=== PATIENT | male | born 1945 | race Caucasian/White ===

== ENCOUNTER 2023-03-24 06:31 | Outpatient (OUT) | payer MEDICARE, SELFPAY ==
--- NOTE | 2023-03-24 | NM_ITS ---
The [place] [id number] Patient Name: MORENA HICKMAN MRN: [id number] date: 1945 Sex: M Assigned Patient Location: LAB Current Patient Location: LAB Accession/Order Number: [id number] Exam Date: 03/24/2023 07:00 Report Date: 03/24/2023 16:38 At the request of: GERMAN WESTFALL Procedure: NM bone scan whole body EXAMINATION: NM bone scan whole body HISTORY: PROSTATE CANCER COMPARISON: No relevant comparison available. TECHNIQUE: After obtaining the patient's consent, 25.6 mCi Technetium 99m MDP was injected intravenously. Images were obtained approximately two hours later. FINDINGS: ABNORMALITIES: Increased activity identified in the left sternoclavicular joint, left C3 and right T8 facet joints, degenerative changes favored. Decreased activity in the left hip consistent with arthroplasty. OTHER: Negative. IMPRESSION: No definite evidence of metastatic disease to the bones Electronically authenticated by: JAIMEE LOVE Date: 03/24/2023 16:38
--- NOTE | 2023-03-24 06:54 | CT_ITS ---
The [address] [address] Patient Name: MORENA HICKMAN MRN: [id number] date: 1945 Sex: M Assigned Patient Location: LAB Current Patient Location: LAB Accession/Order Number: [id number] Exam Date: 03/24/2023 08:42 Report Date: 03/24/2023 09:44 At the request of: GERMAN WESTFALL Procedure: CT abdomen pelvis wo/w con EXAM: CT scan of the abdomen and pelvis without and with IV contrast using 99 mL of IV iodinated contrast. Oral contrast. Dose reduction technique used: Automated exposure control and/or adjustment of the mA and/or kV according to patient size and/or use of iterative reconstruction technique. REASON FOR EXAM: Prostate Cancer C61 COMPARISON: None FINDINGS: No solid organ metastases. No lymphadenopathy in the abdomen or pelvis. Enlarged prostate. Small bilateral renal cysts. Colonic diverticulosis. Left total hip arthroplasty. L1-L4 posterior maame and pedicle screw fusion, hardware is intact. Negative appendix. No free intraperitoneal air. No free fluid in the abdomen or pelvis. No dilated or thickened loops of small bowel or colon. No renal, ureteral or bladder calculi. No hydronephrosis. Liver, pancreas, spleen, bilateral kidneys, and bilateral adrenal glands are otherwise unremarkable. Remainder unremarkable. IMPRESSION: No evidence of metastatic disease in the abdomen or pelvis. Electronically authenticated by: PATRICIA CAMPBELL Date: 03/24/2023 09:44
[2023-03-24 06:59] LABS: Estimated GFR (African America >60 (>=60); Estimated GFR (Non-African Ame >60 (>=60)
== END 2023-03-24 06:32 | disposition home or self-care (01) ==
LOC: LAB 06:36
PROVIDERS: PCP Family Medicine; Visit Provider Urology
DX: C61 Malignant neoplasm of prostate (principal); Z80.42 Family history of malignant neoplasm of prostate
CPT/HCPCS: 36415; 74178; 78306; 82565; 84520; A9503; Q9967

== ENCOUNTER 2023-04-11 08:02 | Outpatient (OUT) | payer MEDICARE, SELFPAY ==
[2023-04-11 08:56] LABS: Erythrocyte Sedimentation Rate 16 mm/hr (<=20)
[2023-04-11 09:56] LABS: C Reactive Protein <0.2 mg/dL (<=1.0)
== END 2023-04-11 08:03 | disposition home or self-care (01) ==
PROVIDERS: PCP Family Medicine
DX: M86.652 Other chronic osteomyelitis, left thigh (principal)
CPT/HCPCS: 36415; 85652; 86140

== ENCOUNTER 2023-07-13 07:52 | Outpatient (OUT) | payer MEDICARE, SELFPAY ==
--- NOTE | 2023-07-13 07:58 | ECG_ITS ---
The 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
--- NOTE | 2023-07-13 07:58 | XR_ITS ---
The [address] [address] Patient Name: MORENA HICKMAN MRN: [id number] date: 1945 Sex: M Assigned Patient Location: [facility] Current Patient Location: [facility] Accession/Order Number: [id number] Exam Date: 07/13/2023 08:50 Report Date: 07/13/2023 09:13 At the request of: GERMAN WESTFALL Procedure: XR chest 2V EXAM: XR chest 2V HISTORY: Preop exam COMPARISON: None. TECHNIQUE: PA and lateral views of the chest. FINDINGS: The cardiomediastinal silhouette is normal. No focal consolidation is identified. There is no pneumothorax. No pleural effusion is noted. The osseous structures are intact. XR/XR chest 2V IMPRESSION: No acute cardiopulmonary process. Electronically authenticated by: ARNALDO KUMAR Date: 07/13/2023 09:13
[2023-07-13 08:53] LABS: Basophils Percent Auto 0.6 % (0.2-2.0); Eosinophils Absolute Auto 0.2 10^3/uL (0.0-0.7); Eosinophils Percent Auto 4.2 % (0.9-7.0); Hematocrit 37.7 % (42.0-54.0); Immature Granulocytes Abs Auto 0.01 10^3/uL (0.00-0.03); Immature Granulocytes Pct Auto 0.3 % (0.0-0.5); Lymphocytes Absolute Auto 0.9 10^3/uL (1.2-3.8); Lymphocytes Percent Auto 25.8 % (20.5-60.0); Mean Corpuscular HGB Conc 34.5 g/dL (29.9-35.2); Mean Corpuscular Hemoglobin 32.7 pg (25.9-34.0); Mean Corpuscular Volume 94.7 fL (80.0-94.0); Mean Platelet Volume 8.9 fL (9.5-13.5); Monocytes Absolute Auto 0.4 10^3/uL (0.3-0.8); Monocytes Percent Auto 11.1 % (1.7-12.0); Neutrophils Absolute Auto 2.1 10^3/uL (1.4-6.5); Platelet Count 172 10^3/uL (150-450); Red Blood Count 3.98 10^6/uL (4.70-6.10); Red Cell Distribution Width 12.7 % (11.0-15.0); White Blood Count 3.6 10^3/uL (4.0-11.0)
--- NOTE | 2023-07-13 08:53 | PM.PRESUREVA ---
History of Present Illness History of Present Illness Chief complaint: prostate cancer Narrative: Patient presents for preadmission testing. Patient states he has prostate cancer. He complains of frequency with urination and nocturia. He denies hematuria, dysuria, fever, abdominal pain, or any other complaints. Review of Systems ROS Narrative REVIEW OF SYSTEMS: Negative except as stated in HPI, ten or more systems reviewed. Constitutional: No fever , chills, weakness ENT: No sore throat or epistaxis Cardiovascular: No edema, chest pain, palpitations, or activity intolerance Respiratory: No shortness of breath, cough, or wheezing Musculoskeletal: No joint pain or swelling Gastrointestinal: No abdominal pain, constipation, diarrhea, or vomiting Genitourinary: No dysuria or hematuria Neurological: No numbness, tingling, weakness, or headache Psychiatric: No mood changes PFSH PFSH Medical History (Updated 07/13/23 @ 08:31 by Rosa Condon NP) Arthritis ?M19.90 - Unspecified osteoarthritis, unspecified site (ICD-10) Frequency of urination ?R35.0 - Frequency of micturition (ICD-10) Heartburn ?R12 - Heartburn (ICD-10) IBS (irritable bowel syndrome) ?K58.9 - Irritable bowel syndrome without diarrhea (ICD-10) Infected prosthesis of left hip ?T84.52XA - Infection and inflammatory reaction due to internal left hip prosthesis, initial encounter (ICD-10) Nocturia ?R35.1 - Nocturia (ICD-10) Prostate cancer ?C61 - Malignant neoplasm of prostate (ICD-10) Surgical History (Updated 07/13/23 @ 08:31 by Rosa Condon NP) History of carpal tunnel release ?Z98.890 - Other specified postprocedural states (ICD-10) History of cataract extraction ?Z98.49 - Cataract extraction status, unspecified eye (ICD-10) History of hip surgery ?Z98.890 - Other specified postprocedural states (ICD-10) History of spinal surgery ?Z98.890 - Other specified postprocedural states (ICD-10) History of spinal surgery ?Z98.890 - Other specified postprocedural states (ICD-10) History of total hip arthroplasty ?Z96.649 - Presence of unspecified artificial hip joint (ICD-10) Hx of prostate biopsy ?Z98.890 - Other specified postprocedural states (ICD-10) Family History (Updated 07/13/23 @ 08:31 by Rosa Condon NP) Other Family history of breast cancer Family history of colon cancer Family history of coronary artery disease Family history of heart disease Family history of hypertension Family history of prostate cancer Social History (Updated 07/13/23 @ 08:22 by Rosa Condon NP) Within the past year, how often did you have a drink containing alcohol: monthly or less Smoking status: Never smoker Highest level of school completed/degree received: high school graduate Meds Home Medications and Allergies Home Medications Medication Instructions Recorded Confirmed Type Lactobacillus rhamnosus GG 10 1 cap PO DAILY 07/13/23 07/13/23 History billion cell capsule (Culturelle) acetaminophen 325 mg capsule 650 mg PO Q6H PRN pain 07/13/23 07/13/23 History (Tylenol) amoxicillin 500 mg-potassium 1 tab PO BID 07/13/23 07/13/23 History clavulanate 125 mg tablet (Augmentin) bicalutamide 50 mg tablet 50 mg PO DAILY 07/13/23 07/13/23 History calcium carb-vit D3-minerals 600 1 tab PO DAILY 07/13/23 07/13/23 History mg calcium-400 unit tablet dicyclomine 20 mg tablet 20 mg PO BID 07/13/23 07/13/23 History meloxicam 7.5 mg tablet 7.5 mg PO BID 07/13/23 07/13/23 History Allergies Allergy/AdvReac Type Severity Reaction Status Date / Time celecoxib [From Celebrex] Allergy renal Verified 07/13/23 08:18 insufficiency codeine Allergy Hallucinati Verified 07/13/23 08:18 ng ketoprofen [From Orudis] Allergy Verified 07/13/23 08:18 oxycodone Allergy syncope Verified 07/13/23 08:18 Exam Narrative Exam Narrative: Constitutional: Awake, alert, comfortable, well-appearing, nontoxic, interactive, vital signs as charted Head: Normocephalic, atraumatic Neck: Supple, normal appearance, normal range of motion, no meningeal signs, no lymphadenopathy Respiratory: No respiratory distress, breath sounds clear Cardiovascular: Regular rate and rhythm, strong and regular heart tones Abdomen: Nontender, normal bowel sounds, soft, no CVA tenderness Musculoskeletal: Normal gait, no swelling or edema Skin: No rashes or induration, no lesions, only visible skin inspected Neuro: No neurological deficits, normal sensation Psychiatric: Oriented ?3, normal affect Assessment and Plan Assessment and Plan (1) Prostate cancer: Plan [place] seed implant scheduled with Dr. Graham 07/27/2023.
[2023-07-13 09:07] LABS: Anion Gap 9.5; Calcium 8.9 mg/dL (8.5-10.1); Carbon Dioxide 30.7 mmol/L (21.0-32.0); Chloride 105 mmol/L (98-107); Estimated GFR (African America >60 (>=60); Estimated GFR (Non-African Ame >60 (>=60); Glucose 86 mg/dL (74-106); Potassium 4.2 mmol/L (3.5-5.1); Sodium 141 mmol/L (136-145)
[2023-07-13 09:15] LABS: INR 0.95; Partial Thromboplastin Time 26.2 sec (22.3-36.2); Prothrombin Time 10.1 sec (9.0-11.6)
== END 2023-07-13 07:53 | disposition home or self-care (01) ==
LOC: PST 07:52
PROVIDERS: PCP Family Medicine; Visit Provider Urology
DX: Z01.812 Encounter for preprocedural laboratory examination (principal); Z01.810 Encounter for preprocedural cardiovascular examination; C61 Malignant neoplasm of prostate; M19.90 Unspecified osteoarthritis, unspecified site; K21.9 Gastro-esophageal reflux disease without esophagitis; K58.9 Irritable bowel syndrome, unspecified; R97.20 Elevated prostate specific antigen [PSA]; Z80.42 Family history of malignant neoplasm of prostate
CPT/HCPCS: 71046; 80048; 85025; 85610; 85730; 93005; G0463

== ENCOUNTER 2023-07-27 06:51 | Day surgery (SDC) | payer MEDICARE, SELFPAY ==
[2023-07-13 08:47] VITALS: BP 136/67; PULSE 70; RESP 18; TEMP 36.3; O2SAT 96; BMI 29.9
[2023-07-27] VITALS (17 sets, daily range): BP systolic 130–163; BP diastolic 65–87; PULSE 66–97; RESP 13–24; TEMP 36.3; O2SAT 95–98
--- NOTE | 2023-07-27 | XR_ITS ---
The [address] [address] Patient Name: MORENA HICKMAN MRN: [id number] date: 1945 Sex: M Assigned Patient Location: [facility] Current Patient Location: Accession/Order Number: [id number] Exam Date: 07/27/2023 09:00 Report Date: 07/28/2023 06:51 At the request of: GERMAN WESTFALL Procedure: XR pelvis 1-2V PROCEDURE: XR pelvis 1-2V HISTORY: PROSTATE SEED IMPLANT COMPARISON: None. FINDINGS: Single intraoperative spot fluoroscopic image of the pelvis shows numerous radioactive seeds confined to the region of the prostate. Bladder is filled with contrast without appreciable extravasation. Prior left hip replacements and mechanical fusion of the visible lumbar spine. XR/XR pelvis 1-2V IMPRESSION: 1. Radioactive prostate seeding without appreciable bladder involvement. Electronically authenticated by: DONITA DAVENPORT Date: 07/28/2023 06:51
[2023-07-27] MEDS: LACTATED RINGER'S SOLUTION 1,000 ML 50 ML IV (07:26)
[2023-07-27] MEDS: CEFAZOLIN SODIUM/DEXTROSE,ISO 1 GM/50 ML IV.SOLN IV (07:59)
[2023-07-27] MEDS: IOHEXOL 300 MG/ML - 50 ML BTL INJ (08:17)
--- NOTE | 2023-07-27 09:19 | PM.URSON ---
Urology Surgery Operative Note Operative Note Procedure Date: 07/27/23 Time Out Performed: yes Pre-op Diagnosis: prostate cancer organ confined Post-op Diagnosis: same as pre-op Procedures performed: #1 palladium 103 prostate seed implantation. #2. Cystoscopy. Anesthesia: General-LMA Primary Surgeon: Galo Graham Complications: none Estimated blood loss (mL): 5 Findings: no evidence of seeds or spacers protruding from the prostate or within the bladder Specimens: none Drains: 18 Bulgarian Bunch catheter in the bladder. Indications for Procedures: this gentleman has a PSA of 26 and had an her [place] of the prostate with K[place] score of 8 in 4 corners and 7 in 5 cores. He was started on hormmonal and the and treatment planning with Dr. Villa. He had 45 lsasiter of external beam given prior to his seed implantation. He now presents for palladium 103 prostate seed implantation to confer 100 metzger along with a cystoscopy. He has signed an informed consent for these procedures after all risks were explained. Detailed description of Procedure: The patient was brought to the operating room and placed on the operating room table in the supine position. SCDs were placed on the lower extremities and turned on and functioning during the entire case. Timeout was done by all parties in the room. We all agreed upon the patient's identification and the planned procedures for this patient. Genn. anesthesia was then administered. The patient was then repositioned into the modified dorsal lithotomy position. All pressure points were satisfactorily padded. Genitalia were sterilely prepped and draped in usual fashion.we started by assuring that his positioning matched the preoperative simulation. We then brought the implant bracket to the foot of the table. The ultrasound probe was passed per rectum. The bracket was placed over the perineum. We used fluoroscopic and ultrasonic assistance to facilitate the procedure. Dilute contrast and saline were placed in the bladder to have a distended. The catheter was removed. We then started passing needles trans-perineally to the prostate. We passed a 14 needles and placed 43 sourrces of palladium 103 into predetermined locations according to the treatment plan. With the fluoroscopic and ultrasonic assistance we had excellent placement. Upon completion, live dosimetry revealed excellent coverage of the entire prostate. The ultrasound probe grid and implant bracket were then removed from the foot of the table. I then passed a 22 Bulgarian Olympus cystoscope per urethra and into the bladder. There was no evidence of any seeds or spacers protruding from the prostate or sitting within the bladder. There was high-grade trabeculation within the bladder. The scope was then removed. I then placed an 18 Bulgarian Bunch catheter in the bladder and 10 mL of fluid was placed in the balloon. It drained clear. The patient was then transferred to a raberdeen bed and wheeled to PACU in stable condition. He'll be discharged to home later today with a prescription for Vesicare 10 mg daily #7. He is already on Augmentin 500 mg twice a day and he will continue this. Follow-up will be in one week.
[2023-07-27] MEDS: SOLIFENACIN SUCCINATE 10 MG TABLET PO (09:32)
--- NOTE | 2023-07-27 10:12 | PC.NURSE ---
Bunch patent and draining clear yellow urine without difficulty.
--- NOTE | 2023-07-27 10:44 | PC.NURSE ---
Bunch emptied of clear yellow urine
== END 2023-07-27 10:35 | disposition home or self-care (01) ==
PROVIDERS: PCP Family Medicine; Visit Provider Urology
PROC: (CPT 55875; principal; 2023-07-27 08:00)
DX: C61 Malignant neoplasm of prostate (principal); N32.89 Other specified disorders of bladder; M19.90 Unspecified osteoarthritis, unspecified site; K21.9 Gastro-esophageal reflux disease without esophagitis; R97.20 Elevated prostate specific antigen [PSA]; Z80.42 Family history of malignant neoplasm of prostate; K58.9 Irritable bowel syndrome, unspecified; J30.2 Other seasonal allergic rhinitis; Z87.891 Personal history of nicotine dependence; M06.4 Inflammatory polyarthropathy; E66.3 Overweight; Z68.28 Body mass index [BMI] 28.0-28.9, adult; R35.1 Nocturia; Z96.642 Presence of left artificial hip joint
CPT/HCPCS: 55875; 36415; 72170; 76965; 77290; 77332; 77778; C1715; C2635; C2640; J2704; Q9967

== ENCOUNTER 2023-11-06 08:18 | Outpatient (OUT) | payer MEDICARE, SELFPAY ==
--- OUTSIDE RECORDS SUMMARY | 2023-11-06 08:23 | XMS_ITS | CCD ---
Author Name Unknown Address [address] [place] [address] Organization [facility] Care Team Providers Care Occupational Therapy Supervisor Name Role Phone Kilo Harkins Unavailable MD Uday Wilson Primary Care Provider MD Kilo Harkins Attending Provider Kilo Harkins Attending Unavailable Kilo Harkins Admitting Unavailable Wilson, Uday Stoll Primary Care Unavailable WILSON ., DR UDAY Stoll Consulting Unavailable WILSON ., DR UDAY Stoll Attending Unavailable WILSON ., DR UDAY Stoll Admitting Unavailable WILSON ., DR UDAY Stoll Primary Care Unavailable WILSON ., DR UDAY Stoll Consulting Unavailable MISC, DR SHUKLA Attending Unavailable MISC, DR SHUKLA Admitting Unavailable WILSON ., DR UDAY Stoll Primary Care Unavailable MISC, DR SHUKLA Consulting Unavailable MISC, DR SHUKLA Attending Unavailable WILSON ., DR UDAY Stoll Primary Care Unavailable MISC, DR SHUKLA Admitting Unavailable MISC, DR SHUKLA Consulting Unavailable WILSON ., DR UDAY Stoll Primary Care Unavailable MISC, DR SHUKLA Admitting Unavailable MISC, DR SHUKLA Attending Unavailable WILSON ., DR UDAY Stoll Primary Care Unavailable REQUEST, DR ARAYA LISTED Attending Unavaila ble REQUEST, DR ARAYA LISTED Admitting Unavaila ble REQUEST, DR ARAYA LISTED Consulting Unavaila ble MISC, DR SHUKLA Attending Unavailable WILSON ., DR UDAY Stoll Primary Care Unavailable MISC, DR SHUKLA Admitting Unavailable MISC, DR SHUKLA Consulting Unavailable WILSON, UDAY Stoll Primary Care Physician [phone] Marla Whitfield Primary Care Physician Unavailable Primary Care Provider Unavailabl e ENGELER, G KANU Attending Unavailable ENGELER, G KANU Referring Unavailable ENGELER, G KANU Referring Unavailable ENGELER, G KANU Attending Unavailable ENGELER, G KANU Referring Unavailable ENGELER, G KANU Attending Unavailable ENGELER, G KANU Referring Unavailable ENGELER, G KANU Referring Unavailable ENGELER, G KANU Referring Unavailable WESTFALL, GERMAN Colmenares Referring Unavailable ENGELER, G KANU Attending Unavailable ENGELER, G KANU Attending Unavailable ENGELER, G KANU Attending Unavailable ENGELER, G KANU Referring Unavailable ENGELER, G KANU Referring Unavailable ENGELER, G KANU Attending Unavailable ENGELER, G KANU Referring Unavailable ENGELER, G KANU Attending Unavailable ENGELER, G KANU Attending Unavailable ENGELER, G KANU Referring Unavailable ENGELER, G KANU Referring Unavailable ENGELER, G AKNU Referring Unavailable ENGELER, G KANU Referring Unavailable ENGELER, G KANU Referring Unavailable ENGELER, G KANU Referring Unavailable ENGELER, G KANU Referring Unavailable ENGELER, G KANU Referring Unavailable ENGELER, G KANU Referring Unavailable ENGELER, G KANU Referring Unavailable ENGELER, G KANU Attending Unavailable ENGELER, G KANU Referring Unavailable ENGELER, G KANU Referring Unavailable ENGELER, G KANU Referring Unavailable ENGELER, G KANU Referring Unavailable ENGELER, G KANU Attending Unavailable ENGELER, G KANU Referring Unavailable ENGELER, G KANU Referring Unavailable ENGELER, G KANU Attending Unavailable ENGELER, G KANU Referring Unavailable ENGELER, G KANU Attending Unavailable ENGELER, G KANU Attending Unavailable ENGELER, G KANU Referring Unavailable Roseann, 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 DROPS 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 Marla L Attending Unavailable WESTFALL, German Colmenares Attending Unavailable WESTFALL, German Colmenares Attending Unavailable Roseann, 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 DROPS 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 Marla L Admitting Unavailable Roseann, 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 DROPS 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 Marla L Attending Unavailable WESTFALL, German Colmenares Attending Unavailable Miguelito Peres Attending Unavailable WILSONUDAY BROWNLEE Attending Unavailable Miguelito Peres Attending Unavailable WILSONUDAY BRWONLEE Referring Unavailable WESTFALL, German Colmenares Attending Unavailable WILSONUDAY BROWNLEE Attending Unavailable Miguelito Peres Attending Unavailable WESTFALL, German Colmenares Attending Unavailable WESTFALL, German R Attending Unavailable WESTFALL, German R Attending Unavailable WESTFALL, German R Attending Unavailable WESTFALL, German Colmenares Attending Unavailable WESTFALL, German R Attending Unavailable WESTFALL, German Colmenares Attending Unavailable WESTFALL, German Colmenares Attending Unavailable WESTFALL, German R Referring Unavailable WESTFALL, German Colmenares Admitting Unavailable WESTFALL, German R Attending Unavailable Roseann, 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 DROPS 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 Marla L Attending Unavailable Roseann, 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 DROPS 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 Marla L Admitting Unavailable UDAY WILSON Attending Unavailable CAIT CLAYTON Attending Unavailable LORAINEE, JUAN RAMON Attending Unavailable SELF, REFERRED Referring Unavailable SHENDGE, VITHAL Referring Unavailable SHENDGE, VITHAL Referring Unavailable SHENDGE, VITHAL Referring Unavailable SHENDGE, ANDREWHAL Attending Unavailable MELLY MATA Attending Unavailable Allergies Allergy Classification Reported Allergen(s) Allergy Type Date of Onset Reaction(s) Facility (12 sources) celecoxib; Translations: [celecoxib] Drug Allergy 08-26-20 Unknown (qualifier value) [facility] (1 source) Codeine Drug Allergy Unknown [facility] Other (20 sources) Codeine; Translations: [Codeine] Drug Allergy 08-26-20 Unknown (qualifier value), Mental Status Change [facility] (1 source) sodium pentathol Allergy to substance 08-26-20 Swelling of Lip/Tongue/Throat [facility] (11 sources) Ketoprofen; Translations: [ketoprofen] Drug Allergy 04-14-20 Unknown (qualifier value) [facility] (20 sources) oxyCODONE; Translations: [oxycodone] Drug Allergy 05-23-20 Lightheadedness (finding), Other: See Comments [facility] (1 source) celecoxib; Translations: [CeleBREX] Drug Allergy [facility]ository (1 source) Acetaminophen / oxyCODONE; Translations: [OXYCODONE-ACETA MINOPHEN] Drug Allergy 05-23-[address] [facility] Repository Medications Current Medications Medication Drug Class(es) Dates Sig (Normalized) Sig (Original) Tylenol (7 sources) Start: 03-01-2023 Tylenol Oral Start Date: 03/01/23 Status: Ordered amoxicillin 500 mg / clavulanate 125 mg oral tablet (20 sources) Penicillin-class Antibacterial Start: 08-28-2023 amoxicillin-clavu lanate 500 mg-125 mg Tab Refill(s) 0 Start Date: 08/28/23 Status: Ordered Start: 02-08-2023 take 1 tablet by peter th every twelve hours Augmentin 500 mg-125 mg Tab 500 mg, Oral, q12hr, Refill(s) 0 Start Date: 02/08/23 Status: Ordered Start: 01-17-2023 take 1 tablet by peter th once at bedtime amoxicillin-clavulanic acid (AUGMENTIN) 500-125 mg per tablet TAKE 1 TABLET (500 MG) BY MOUTH IN THE MORNING AND AT BEDTIME. 0 01/17/2023 Active Comment on above: TAKE 1 TABLET (500 M G) BY MOUTH IN THE MORNING AND AT BEDTIME. aspirin 325 mg oral tablet (1 source) Platelet Aggregation Inhibitor, Nonsteroidal Anti-inflammatory Drug Start: Aspirin (Reza Aspirin) 325 mg Tablet Active 325 MG PO As Directed August 20, 2020 12:00am bicalutamide 50 mg oral tablet (20 sources) Androgen Receptor Inhibitor Start: End: take 1 tablet by mouth every twenty-four hours bicalutamide 50 mg Tab 50 mg = 1 tab(s), Oral, q24hr, X 30 day(s), # 30 tab(s), Refills(s) 11, Pharmacy: [facility], 178, cm, 03/27/23 9:48:00 EDT, Height/Length Dosing, 100, kg, 03/27/23 9:48:00 EDT, Weight Dosing Start Date: 03/27/23 Stop Date: 03/21/24 Status: Ordered Comment on above: Take 50 mg by mouth. ciprofloxacin 500 mg oral tablet (2 sources) Quinolone Antimicrobial Start: End: Cipro 500 mg Tab 500 mg = 1 tab(s), Oral, q12hr, Start 3 days prior to procedure, X 7 day(s), # 14 tab(s), Refills(s) 0, Pharmacy: [facility], 178, cm, 03/01/23 9:33:00 EDT, Height/Length Dosing, 98, kg, 02/14/23 10:27:00 EDT, Weight Dosing Start Date: 03/01/23 Stop Date: 03/08/23 Status: Ordered cyclobenzaprine hydrochloride 10 mg oral tablet (1 source) Muscle Relaxant Start: take 10 mg by mouth three times daily Cyclobenzaprine Active 10 MG PO Three times daily 50 August 28, 2020 12:00am dicyclomine hydrochloride 20 mg oral tablet (20 sources) Anticholinergic Start: take 1 tablet by mouth four times daily as needed dicyclomine 20 mg Tab 20 mg = 1 tab(s), Oral, QID, PRN Other (see comment), for IBS, # 120 tab(s), Refills(s) 3, Pharmacy: [facility] [id number] Start Date: 01/17/23 Status: Ordered Comment on above: Take 20 mg by mouth. fluticasone propionate 0.05 mg/actuat metered dose nasal spray (20 sources) Corticosteroid Start: take 2 spray(s) nasal route once daily Flonase 0.05 mg/inh [place] 2 spray(s), Nasal, Daily, 16 gram, Refill(s) 0, each nostril, [place] [facility] [id number], 180.5, cm, 03/15/23 10:05:00 EDT, Height/Length Dosing, 96.5, kg, 03/15/23 10:05:00 EDT, Weight Dosing Start Date: 03/15/23 Status: Ordered Comment on above: Use in the nose. Handicap Placard (9 sources) Start: Handicap Placard Handicap Placard, See Instructions, 1 EA, 0, Expires in 5 years Start Date: 12/02/22 Status: Ordered meloxicam 7.5 mg oral tablet (20 sources) Nonsteroidal Anti-inflammatory Drug Start: End: take 15 mg by mouth once daily Meloxicam Discontinued 15 MG PO Daily August 20, 2020 12:00am August 28, 2020 7:45am Start: 05-26-2020 take 1 tablet by peter twice daily as needed for arthritis meloxicam 7.5 mg Tab 7.5 mg = 1 tab(s), Oral, BID, PRN Arthritis, take with food, # 60 tab(s), Refills(s) 11, Pharmacy: [place] [id number] Start Date: 01/17/23 Status: Ordered Comment on above: TAKE ONE TABLET BY OUT TWICE A DAY WITH FOOD NEEDED FOR ARTHRITIS PAIN 24 hr mirabegron 50 mg extended release oral tablet (1 source) beta3-Adrenergic Agonist Start: 3 take 1 tablet by mouth once daily Myrbetriq 50 mg oral tablet, extended release 50 mg = 1 tab(s), Oral, Daily, # 30 tab(s), Refills(s) 11, Pharmacy: [facility], 178, cm, 03/27/23 9:48:00 EDT, Height/Length Dosing, 100, kg, 03/27/23 9:48:00 EDT, Weight Dosing Start Date: 08/03/23 Status: Ordered oxyCODONE hydrochloride 5 mg oral capsule (1 source) Opioid Agonist Start: 0 take 5-10 mg by mouth every six hours Oxycodone Active 5 - 10 MG PO Q6H 60 August 28, 2020 Prednisone (1 source) Start: 0 Prednisone Active 1 dose pk PO per package directions August 28, 2020 12:00am take 4 tabs for 3 days then take 3 tabs for 3 days then take 2 tabs for 3 days then take 1 tab for 3 days Probiotic + Colostrum (7 sources) Start: 3 Probiotic + Colostrum Oral, Daily Start Date: 03/01/23 Status: Ordered solifenacin succinate 10 mg oral tablet (3 sources) Cholinergic Muscarinic Antagonist Start: 3 take 1 tablet by mouth once daily Vesicare 10 mg Tab 10 mg = 1 tab(s), Oral, Daily, # 30 tab(s), Refills(s) 11, Pharmacy: [facility], 178, cm, 08/28/23 9:00:00 EST, Height/Length Dosing, 100, kg, 08/28/23 9:00:00 EST, Weight Dosing Start Date: 08/28/23 Status: Ordered Start: 08-03-2023 take 1 tablet by peter once daily Vesicare 5 mg Tab 5 mg = 1 tab(s), Oral, Daily, # 30 tab(s), Refills(s) 11, Pharmacy: [facility], 178, cm, 03/27/23 9:48:00 EDT, Height/Length Dosing, 100, kg, 03/27/23 9:48:00 EDT, Weight Dosing Start Date: 08/03/23 Status: Ordered Comment on above: Take 1 tablet by peter th every afternoon. Tylenol Extra Strength (1 source) Tylenol Extra St rength Active Completed/Discontinued Medications Medication Drug Class(es) Dates Sig (Normalized) Sig (Original) Calcium Carbonate / vitamin D3 (16 sources) calcium carbonate/vitamin D3 (CALTRATE 600 + D ORAL) Take by mouth. 0 Active Comment on above: Take by mouth. Lactobac 42/Bifid 8/colost/FOS (PROBIOTIC PLUS COLOSTRUM ORAL) (16 sources) Start: 03-01-2023 Lactobac 42/Bifid 8/colost/FOS (PROBIOTIC PLUS COLOSTRUM ORAL) Take by mouth. 0 03/01/2023 Active Comment on above: Take by mouth. Problems Active Problems Problem Classification Problem Date Documented Da te Episodic/Chronic Cancer of prostate (20 sources) Malignant neoplasm of prostate; Translations: [Malignant tumor of prostate] Onset: 3 Chronic Coagulation and hemorrhagic disorders (11 sources) Platelet count below reference range; Translations: [Thrombocytopenia, unspecified] Onset: 3 05-08-2023 Chronic Esophageal disorders (9 sources) Gastroesophageal reflux disease 12-02-2022 Chronic Genitourinary symptoms and ill-defined conditions (4 sources) Nocturia; Translations: [Nocturia] Onset: 3 Episodic Osteoarthritis (20 sources) Osteoarthritis of hip; Translations: [Unilateral primary osteoarthritis, left hip] Onset: 1 Resolved: 1 Chronic Comment on above: chronic Other connective tissue disease (1 source) History of total replacement of left hip joint; Translations: [Presence of left artificial hip joint] Chronic Other connective tissue disease (1 source) History of repair of hip joint; Translations: [Presence of left artificial hip joint] Chronic Other connective tissue disease (1 source) Presence of left artificial hip joint Onset: 1 Resolved: 1 Chronic Other connective tissue disease (7 sources) Presence of unspecified artificial hip joint; Translations: [PRESENCE UNS ARTIFICIAL HIP JOINT] Onset: 2 Chronic Other gastrointestinal disorders (9 sources) Irritable bowel syndrome 12-02-2022 Chronic Other non-traumatic joint disorders (9 sources) Hip pain 12-02-2022 Episodic Other nutritional; endocrine; and metabolic disorders (9 sources) Overweight 02-08-2023 Episodic Other nutritional; endocrine; and metabolic disorders (9 sources) Overweight in adulthood with body mass index of 25 or more but less than 30 02-08-2023 Episodic Other screening for suspected conditions (not mental disorders or infectious disease) (1 source) Raised prostate specific antigen; Translations: [Elevated prostate specific antigen [PSA]] Onset: 3 Episodic Other upper respiratory disease (5 sources) Seasonal allergy 03-15-2023 Chronic Otitis media and related conditions (5 sources) Finding of fluid behind tympanic membrane 03-15-2023 Episodic Residual codes; unclassified (3 sources) Family history of cancer; Translations: [Family history of malignant neoplasm of prostate] Onset: 3 Episodic Residual codes; unclassified (7 sources) Family history of prostate cancer 03-01-2023 Episodic Rheumatoid arthritis and related disease (9 sources) 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 Chronic Screening and history of mental health and substance abuse codes (8 sources) H/O: Disorder; Translations: [Personal history of nicotine dependence] Onset: 3 Episodic Spondylosis; intervertebral disc disorders; other back problems (2 sources) Lumbosacral spondylosis without myelopathy; Translations: [Spondylosis without myelopathy or radiculopathy, lumbosacral region] Onset: 1 Resolved: 1 Chronic Spondylosis; intervertebral disc disorders; other back problems (11 sources) Fusion of spine, lumbar region; Translations: [Spinal stenosis of lumbar region] Onset: 1 Resolved: 1 Episodic Unclassified (1 source) CONTACT W/AND (SUSP) EXPOS COVID-19; Translations: [CONTACT W/AND (SUSP) EXPOS COVID-19] Onset: 2 Unclassified (1 source) Volume Study Onset: 3 Past or Other Problems Problem Classification Problem Date Documented Da te Episodic/Chronic Coagulation and hemorrhagic disorders (4 sources) Hemorrhagic condition, unspecified; Translations: [HEMORRHAGIC CONDITION UNSPECIFIED] Onset: 02-07-2022 Episodic Complication of device; implant or graft (20 sources) Infection and inflammatory reaction due to unspecified internal joint prosthesis, subsequent encounter; Translations: [Mechanical loosening of other internal prosthetic joint, initial encounter] Onset: 02-10-2022 Episodic Comment on above: left hip Deficiency and other anemia (5 sources) Anemia, unspecified; Translations: [ANEMIA UNSPECIFIED] Onset: 02-08-2022 Episodic Other acquired deformities (1 source) Spondylolisthesis; Translations: [Spondylolisthesis, lumbar region] Episodic Other liver diseases (1 source) Elevated liver enzymes level; Translations: [Abnormal levels of other serum enzymes] Episodic Results Test Name Value Interpretation Reference Range Facility Follow-Upon 10-23-2023 Follow-Up [id number] Daniel Aguilar Soni 1945 M Date Provider Department Center 10/23/2023 JUAN RAMON THOMAS [facility] Family History Family history unknown: Yes Level of Service:68858 RI OFFICE/OUTPATIENT ESTABLISHED LOW MDM 20 MIN Reason for Visit and Comments: Pain [136] New Patient [632] Normal [facility] Ambulatory Visit Summaryon 1 Ambulatory Visit Summary JHONATHAN AGUILAR Soni :1945 Visit Date:09/15/2023 Ambulatory Visit Instructions Your Diagnosis Prostate cancer Nocturia Tests Performed Urnls Dip Stick Auto w/o Microscopy POC 12327 Your Care Team Attending Physician - MALOU MCGREGOR, German Colmenares Primary Care Physician - Marla Fortune This Is Your Medications List bicalutamide (bicalutamide 50 mg Tab) Contact prescribing physician if questions or concerns Misc Prescription (Handicap Placard) acetaminophen (Tylenol) amoxicillin-clavulanate (amoxicillin-clavulanate 500 mg-125 mg Tab) bifidobacterium-lactobacil jb (Probiotic + Colostrum) dicyclomine (dicyclomine 20 mg Tab) fluticasone nasal (Flonase 0.05 mg/inh [place]) meloxicam (meloxicam 7.5 mg Tab) [Image Removed: STOP]Stop taking these medications solifenacin (Vesicare 10 mg Tab) Procedures Performed Brachytherapy (07/27/2023), Transrectal needle biopsy of prostate (03/07/2023), Biopsy (02/16/2023), Cataract, Cyst, Hip arthroplasty, Surgery. Discharge Vitals Temperature (Temporal Artery) 36.2 ?C Heart Rate (Peripheral) 74 Blood Pressure 128/78 Height 178 cm Height 70 in Weight 100 kg Weight 220 lb BMI 31.56 What to do next Scheduled Follow-Up Appointments Monday 8:45 AM EDT With: German WESTFALL MD [facility] [address] [id number]- \.br\ You Need to Schedule the Following Appointments\. br\ Follow Up with MALOU MCGREGOR, German Colmenares, URL When: \.br\ Where:\.br\ [address]br\ [place] [address]-\.br\ Medications\.b r\ What How Much When Why Instructions\. br\ Unchanged bicalutamide (bicalutamide 50 mg Tab) 1 Tablets By Mouth Every 24 hours Duration: 30 Days\.br\ Unchanged acetaminophen (Tylenol) By Mouth Contact prescribing physician if questions or concerns \.br\ Unchanged amoxicillin-cl avulanate (amoxicillin-c lavulanate 500 mg-125 mg Tab) Contact prescribing physician if questions or concerns \.br\ Unchanged bifidobacteriu m-lactobacillu s (Probiotic + Colostrum) By Mouth Every day Contact prescribing physician if questions or concerns \.br\ Unchanged dicyclomine (dicyclomine 20 mg Tab) 1 Tablets By Mouth 4 times a day as needed for Other (see comment) for IBS Contact prescribing physician if questions or concerns \.br\ Unchanged fluticasone nasal (Flonase 0.05 mg/ inh [place]) 2 Sprays Nasal Inhalation Every day Fluid level behind tympanic membrane of both ears Seasonal allergies BMI 29.0-29.9,adul t Non-smoker each nostril Contact prescribing physician if questions or concerns \.br\ Unchanged meloxicam (meloxicam 7.5 mg Tab) 1 Tablets By Mouth 2 times a day as needed for Arthritis take with food Contact prescribing physician if questions or concerns \.br\ Unchanged Misc Prescription (Handicap Placard) See instructions Expires in 5 years Contact prescribing physician if questions or concerns \.br\ \.br\ What How Much When Comments\.br\ Stop Taking solifenacin (Vesicare 10 mg Tab) 1 Tablets By Mouth Every day\.br\ Test Results\.br\ Urnls Dip Stick Auto w/o Microscopy POC 36945 (09/15/2023)\. br\ Bilirubin Urine Dipstick - Negative\.br\ Blood Urine Dipstick - Trace-intact\. br\ Glucose Urine Dipstick - Negative\.br\ Ketones Urine Dipstick - Negative\.br\ Leukocytes Urine Dipstick - Negative\.br\ Nitrite Urine Dipstick - Negative\.br\ Protein Urine Dipstick - Negative\.br\ Specific Turney Urine Dipstick - 1.020\.br\ Urine Appearance Urine Dipstick - Clear\.br\ Urine Color Urine Dipstick - Light yellow\.br\ Urobilinogen Urine Dipstick - Normal 0.2-1 EU/dl\.br\ pH Urine Dipstick - 5.5\.br\ Medications and Immunizations Administered\. br\ Given\.br\ Lupron Depot 45 mg/6 months intramuscular injection, extended release, 45 mg, IntraMuscular. For: Prostate cancer\.br\ Allergies\.br\ CeleBREX (Unknown)\.br\ Orudis (Unknown)\.br\ codeine (Unknown)\.br\ oxyCODONE (Lightheaded)\ .br\ Problems\.br\ Ongoing - Any problem that you are currently receiving treatment for.\.br\ BMI 28.0-28.9,adul t\.br\ Family history of prostate cancer in father\.br\ Fluid level behind tympanic membrane of both ears\.br\ Former smoker\.br\ Hip pain\.br\ Inflammatory polyarthropath y\.br\ Nocturia\.br\ Other mechanical complication of internal left hip prosthesis, initial encounter\.br\ Over weight\.br\ Prostate cancer\.br\ Seasonal allergies\.br\ Unilateral primary osteoarthritis , left hip\.br\ Historical - Any problem that you are no longer receiving treatment for.\.br\ Arthritis\.br\ Arthritis\.br\ GERD - Gastro-esophag eal reflux disease\.br\ IBS - Irritable bowel syndrome\.br\ Sciatica\.br\ Patient Survey\.br\ You may receive a survey via text or e-mail asking about your office visit. Please share your experience with us by completing your survey. We appreciate your feedback and thank you for choosing us for your care.\.br\ Education Materials\.br\ Prostate Cancer\.br\ \.br\ The prostate is a small gland that produces fluid that makes up semen (seminal fluid). It is located below the bladder in men, in front of the rectum. Prostate cancer is the abnormal growth of cells in the prostate gland.\.br\ What are the causes?\.br\ The exact cause of this condition is not known.\.br\ What increases the risk?\.br\ You are more likely to develop this condition if:\.br\ ? \.br\ You are 65 years of age or older.\.br\ ? \.br\ You have a family history of prostate cancer.\.br\ ? \.br\ You have a family history of breast and ovarian cancer.\.br\ ? \.br\ You have genes that are passed from parent to child (inherited), such as BRCA1 and BRCA2.\.br\ ? 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 The reasons for this are not well understood and are likely due to a combination of genetic and environmental factors.\.br\ What are the signs or symptoms?\.br\ Symptoms of this condition include:\.br\ ? \.br\ Problems with urination. This may include:\.br\ ? \.br\ A weak or interrupted flow of urine.\.br\ ? \.br\ Trouble starting or stopping urination.\.br \ ? \.br\ Trouble emptying the bladder all the way.\.br\ ? \.br\ The need to urinate more often, especially at night.\.br\ ? \.br\ Blood in urine or semen.\.br\ ? \.br\ Persistent pain or discomfort in the lower back, lower abdomen, or hips.\.br\ ? \.br\ Trouble getting an erection.\.br\ ? \.br\ Weakness or numbness in the legs or feet.\.br\ How is this diagnosed?\.br \ This condition can be diagnosed with:\.br\ ? \.br\ A digital rectal exam. For this exam, a health care provider inserts a gloved finger into the rectum to feel the prostate gland.\.br\ ? \.br\ A blood test called a prostate-speci fic antigen (PSA) test.\.br\ ? \.br\ A procedure in which a sample of tissue is taken from the prostate and checked under a microscope (prostate biopsy).\.br\ ? \.br\ An imaging test called transrectal ultrasonograph y.\.br\ Once the condition is diagnosed, tests will be done to determine how far the cancer has spread. This is called staging the cancer. Staging may involve imaging tests, such as a bone scan, CT scan, PET scan, or MRI.\.br\ Stages of prostate cancer\.br\ The stages of prostate cancer are as follows:\.br\ ? \.br\ Stage 1 (I). At this stage, the cancer is found in the prostate only. The cancer is not visible on imaging tests, and it is usually found by accident, such as during prostate surgery.\.br\ ? \.br\ Stage 2 (II). At this stage, the cancer is more advanced than it is in stage 1, but the cancer has not spread outside the prostate.\.br\ ? \.br\ Stage 3 (III). At this stage, the cancer has spread beyond the outer layer of the prostate to nearby tissues. The cancer may be found in the seminal vesicles, which are near the bladder and the prostate.\.br\ ? \.br\ Stage 4 (IV). At this stage, the cancer has spread to other parts of the body, such as the lymph nodes, bones, bladder, rectum, liver, or lungs.\.br\ Prostate cancer grading\.br\ Prostate cancer is also graded according to how the cancer cells look under a microscope. This is called the Cannelton score and the total score can range from 6?10, indicating how likely it is that the cancer will spread (metastasize) to other parts of the body. The higher the score, the greater the likelihood that the cancer will spread.\.br\ ? \.br\ Cannelton 6 or lower: This indicates that the cancer cells look similar to normal prostate cells (well differentiated ).\.br\ ? \.br\ Ev 7: This indicates that the cancer cells look somewhat similar to normal prostate cells (moderately differentiated ).\.br\ ? \.br\ Ev 8, 9, or 10: This indicates that the cancer cells look very different than normal prostate cells [facility] Consultation Noteon 09-15-20 Consultation Note [id number] Normal [facility] Patient Educationon 09-15-20 Patient Education Oncology Prostate Cancer The prostate is a small gland that produces fluid that makes up semen (seminal fluid). It is located below the bladder in men, in front of the rectum. Prostate cancer is the abnormal growth of cells in the prostate gland. What are the causes? The exact cause of this condition is not known. What increases the risk? You are more likely to develop this condition if: ? You are 65 years of age or older. ? You have a family history of prostate cancer. ? You have a family history of breast and ovarian cancer. ? You have genes that are passed from parent to child (inherited), such as BRCA1 and BRCA2. ? You have Holder syndrome. men and men of descent are diagnosed with prostate cancer at higher rates than other men. The reasons for this are not well understood and are likely due to a combination of genetic and environmental factors. What are the signs or symptoms? Symptoms of this condition include: ? Problems with urination. This may include: ? A weak or interrupted flow of urine. ? Trouble starting or stopping urination. ? Trouble emptying the bladder all the way. ? The need to urinate more often, especially at night. ? Blood in urine or semen. ? Persistent pain or discomfort in the lower back, lower abdomen, or hips. ? Trouble getting an erection. ? Weakness or numbness in the legs or feet. How is this diagnosed? This condition can be diagnosed with: ? A digital rectal exam. For this exam, a health care provider inserts a gloved finger into the rectum to feel the prostate gland. ? A blood test called a prostate-specific antigen (PSA) test. ? A procedure in which a sample of tissue is taken from the prostate and checked under a microscope (prostate biopsy). ? An imaging test called transrectal ultrasonography. Once the condition is diagnosed, tests will be done to determine how far the cancer has spread. This is called staging the cancer. Staging may involve imaging tests, such as a bone scan, CT scan, PET scan, or MRI. Stages of prostate cancer The stages of prostate cancer are as follows: ? Stage 1 (I). At this stage, the cancer is found in the prostate only. The cancer is not visible on imaging tests, and it is usually found by accident, such as during prostate surgery. ? Stage 2 (II). At this stage, the cancer is more advanced than it is in stage 1, but the cancer has not spread outside the prostate. ? Stage 3 (III). At this stage, the cancer has spread beyond the outer layer of the prostate to nearby tissues. The cancer may be found in the seminal vesicles, which are near the bladder and the prostate. ? Stage 4 (IV). At this stage, the cancer has spread to other parts of the body, such as the lymph nodes, bones, bladder, rectum, liver, or lungs. Prostate cancer grading Prostate cancer is also graded according to how the cancer cells look under a microscope. This is called the Cannelton score and the total score can range from 6?10, indicating how likely it is that the cancer will spread (metastasize) to other parts of the body. The higher the score, the greater the likelihood that the cancer will spread. ? Ev 6 or lower: This indicates that the cancer cells look similar to normal prostate cells (well differentiated). ? Ev 7: This indicates that the cancer cells look somewhat similar to normal prostate cells (moderately differentiated). ? Cannelton 8, 9, or 10: This indicates that the cancer cells look very different than normal prostate cells (poorly differentiated). How is this treated? Treatment for this condition depends on several factors, including the stage of the cancer, your age, personal preferences, and your overall health. Talk with your health care provider about treatment options that are recommended for you. Common treatments include: ? Observation for early stage prostate cancer (active surveillance). This involves having exams, blood tests, and in some cases, more biopsies. For some men, this is the only treatment needed. ? Surgery. Types of surgeries include: ? Open surgery (radical prostatectomy). In this surgery, a larger incision is made to remove the prostate. ? A laparoscopic radical prostatectomy. This is a surgery to remove the prostate and lymph nodes through several small incisions. It is often referred to as a minimally invasive surgery. ? A robotic radical prostatectomy. This is laparoscopic surgery to remove the prostate and lymph nodes with the help of robotic arms that are controlled by the surgeon. ? Cryoablation. This is surgery to freeze and destroy cancer cells. ? Radiation treatment. Types of radiation treatment include: ? External beam radiation. This type aims beams of radiation from outside the body at the prostate to destroy cancerous cells. ? Brachytherapy. This type uses radioactive needles, seeds, wires, or tubes that are implanted into the prostate gland. Like external be (more content not included)... Normal [facility] Urology Office/Clinic Noteon 09-15-2023 Urology Office/Clinic Note Chief Complaint 2 week F/U with PSA and Lupron inj HPI Staff 77 yo male here for 2 wk f/u with PSA and possibly his last Lupron inj. Previous Dx: prostate ca, nocturia, fam hx of prostate ca in father. S/p Brachytherapy 07/27/23. Last Lupron inj given 03/27/23. Last saw Dr. Ruiz 08/09/23. Increased dosage of VESIcare from 5mg to 10mg qd at prior OV. Not working very well Current PSA done 08/24/23 PVR 22 PSA: 09/25/14 - 1.11 02/10/23 - 26.2 08/24/23 - 0.05 Dysuria: denies Incomplete bladder emptying: sometimes Hematuria: denies visible blood Frequency: every couple hours Urgency: denies Nocturia: 4-5x nightly Stream: denies hesitation, normal stream Leaking: denies Post void dripping: denies Wearing pads/ Depends: denies Urge incontinence: denies Stress incontinence: denies Incontinence without Sensory Awareness: denies Abdominal pain: denies Flank pain: denies Sexual complaints: denies History of Present Illness Tests reviewed: reviewed UA. I have reviewed the previous health record information and history for this patient from Dr. Westfall. I have reviewed and verified the staff HPI to be accurate for this encounter. There have been no associated fever, chills, flank pain, or blood in the urine. Denies any urinary infections since last encounter. Review of Systems PHQ Score Initial Depression Screen Score: 0 SCORE ROS - Provider Constitutional: denies weight loss, denies hot flashes. Eyes: denies eye problems. Gastrointestinal: denies nausea, denies vomiting. Cardiovascular: denies chest pain or angina. Integumentary: no dryness Musculoskeletal: denies musculoskeletal symptoms. ENMT: denies otolaryngeal symptoms. Respiratory: no shortness of breath. Heme/Lymph: denies easy bleeding tendency, denies easy bruising tendency. Psychiatric: no confusion, no anxiety. Genitourinary: See HPI. Physical Exam Vitals & Measurements T: 36.2 ?C(Temporal Artery) HR: 74(Peripheral) BP: 128/78 HT: 70 in HT: 178 cm WT: 100 kg WT: 220 lb BMI: 31.56 General Appearance: alert, no distress, well nourished, well developed male. Genitourinary: normal scrotum, normal testes, normal urethra, normal epididymis, normal vas deferens/spermatic cord. Flank Pain: none. Bladder: nonpalpable. Assessment/Plan 1. Prostate cancer (C61: Malignant neoplasm of prostate) PSA: 09/25/14 - 1.11 02/10/23 - 26.2 08/24/23 - 0.05 JEFERSON 03/01/23 - Abnormal prostate, estimated weight 40 gms, yes hard nodule observed. rock hard prostate L >>R. TRUS/bx 03/07/23 - Cannelton 8 (4+4) x 4 cores, highest % of core involvement 85%. Cannelton 7 (4+3) x 5 cores, highest % of core involvement 66%. SADA x 3 cores. All cores taken were abnormal. CT AP w/wo con 03/24/23 - negative for metastatic disease in abd/pelvis NM Bone scan 03/24/23 - negative for metastatic disease to the bones. Brachytherapy 07/27/23. Started on Casodex 50mg qd therapy in March. Last seen by Dr. Ruiz 08/09/23. Has follow up scheduled. Last Lupron 03/27/23. Lupron 45 mgIM injection given today with no complications. Right glute. Pt. denies side effects at this time. Last Lupron unless PSA rises. Follow up in 3 months w/ PSA or sooner if needed. 2. Nocturia (R35.1: Nocturia) PVR (cc): 08/03/23 - 110 09/15/23 - Myrbetriq cost prohibitive. VESIcare was increased from 5mg to 10mg last visit. States it is not working well. Has noticed severe constipation which is a side effect from medication. Still getting up 4-5x per night. States he drank coffee around 7pm last night, but did not drink any the night prior and was still up 3-4x per night. Advised pt to avoid bladder irritants and to limit fluids 2 hours prior to bed. Discussed radiation changes. -D/c VESIcare due to constipation -Behavioral and dietary modifications Follow-up With When Contact Information MALOU MCGREGOR, German Colmenares, URL [address] [place] [address]- Additional Instructions: 3 months w/ PSA Patient Education Prostate Cancer I, Juany Mckeon, personally scribed for Dr. Westfall on 09/15/2023 09:38:06. . Documentation recorded by the scribe, Juany Mckeon, accurately reflects the services(s) I performed and decisions made by me. Authenticated by Dr. Westfall on 09/15/2023 09:40:52. Problem List/Past Medical History Ongoing BMI 28.0-28.9,adult Family history of prostate cancer in father Fluid level behind tympanic membrane of both ears Former smoker Hip pain Inflammatory polyarthropathy Nocturia Other mechanical complication of internal left hip prosthesis, initial encounter Over weight Prostate cancer Seasonal allergies Unilateral primary osteoarthritis, left hip Historical Arthritis Arthritis GERD - Gastro-esophageal reflux disease IBS - Irritable bowel syndrome Sciatica Procedure/Surgical History Brachytherapy (07/27/2023), Transrectal needle (more content not included)... Normal [facility] Comment on above: Result Comment: Elec tronically Signed By: German WESTFALL MD\.br\Date and Time Signed: 09/15/23 09:40 EST\.br\Electronically Co-Signed By: Juany Mckeon.br\Date and Time Co-Signed: 09/15/23 09:38 EST Otilio 09-07-2023 CNOV Office Visit (RADTSA ) -- JHONATHAN AGUILAR ([id number]) 1945 M Date Time Provider Department 09/07/23 10:15 AM Jennifer RUIZ During your visit today, we recorded the following information about you: Temperature Pulse Respiration Blood pressure 96.8 degrees 66/minute 16/minute 144/81 Weight 96.1 kg Jennifer Ruiz MD 09/14/2023 3:22 PM Signed Radiation Oncology - Follow Up Note PATIENT NAME: Jhonathan Aguilar PATIENT DIAGNOSIS: Prostate adenocarcinoma, 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 Prostate cancer (C61), 2019 NCCN Risk Group: High Risk Group RADIATION SUMMARY: DATES OF TREATMENT: Pelvis External Beam: 04/26/23 - 06/02/23 Prostate Brachytherapy: 07/27/23 DELIVERED DOSE: Area: Pelvis/Prostate 45 Gy in 25 fractions, 3 ARCS, VMAT, 10MV WITH DAILY CBCT Prostate Brachytherapy 100 Gy Pd-103,43 sources, 68.8 mCi INTERVAL HISTORY: The patient presents for routine follow-up after recent brachytherapy. Doing well. PSA HISTORY: PSA (ng/mL) Date Value 08/24/2023 0.05 ALLERGIES Allergen Reactions Codeine Mental Status Change Oxycodone Other: See Comments Dizziness, syncope solifenacin 10 mg tablet Take 10 mg by mouth every afternoon. amoxicillin-clavulanic acid (AUGMENTIN) 500-125 mg per tablet TAKE 1 TABLET (500 MG) BY MOUTH IN THE MORNING AND AT BEDTIME. bicalutamide (CASODEX) 50 mg tablet Take 50 mg by mouth. dicyclomine (BENTYL) 20 mg tablet Take 20 mg by mouth. meloxicam (MOBIC) 7.5 mg tablet TAKE ONE TABLET BY MOUTH TWICE A DAY WITH FOOD NEEDED FOR ARTHRITIS PAIN Lactobac 42/Bifid 8/colost/FOS (PROBIOTIC PLUS COLOSTRUM ORAL) Take by mouth. calcium carbonate/vitamin D3 (CALTRATE 600 + D ORAL) Take by mouth. fluticasone (FLONASE) 50 mcg/actuation nasal spray Use in the nose. REVIEW OF SYSTEMS: D/N = 4-7/2-4 Hematuria: none Dysuria: Yes improving Incontinence: none Urgency: Mild Catheter use: No Medications to aid urination: Vesicare - Total AUA Score: 14 Bowel movement frequency: 1/day Bowel movement quality: normal Blood per rectum: none Last colonoscopy: na Androgen deprivation: Lupron, Casodex PHYSICAL EXAM: BP 144/81 Pulse 66 Temp 36 ?C (96.8 ?F) Resp 16 Wt 96.1 kg (211 lb 13.8 oz) SpO2 99% BMI 29.34 kg/m? KPS: 100 General Appearance: Alert and oriented. No acute distress. Rectal exam is deferred. 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 Prostate cancer (C61), 2019 NCCN Risk Group: High Risk Group Patient overall doing well. Post-implant CT shows appropriate prostate coverage and normal tissue sparing. No change or modification in either the treatment or follow-up plan based on this. Recommend repeat PSA in 6 months. Patient has continued close follow-up with Dr. Westfall. Signed by: Jennifer Ruiz MD cc: Dara Hinton LPN 09/14/2023 3:22 PM Signed AUA= 14 Allergies As of Date: 09/07/2023 Noted Allergy Reaction CODEINE 04/05/2023 1 - Mental Status Change OXYCODONE 04/05/2023 14 - Other: See Comments Comments: Dizziness, syncope Date Reviewed: 09/07/2023 Reviewed by: Dara Russell LPN - Fully Assessed Reason for Visit: Prostate Cancer [590] Primary Visit Diagnosis:Malignant neoplasm of prostate (HCC) [C61] Prescriptions as of 09/14/2023 - solifenacin 10 mg tablet Take 10 mg by mouth every afternoon. - amoxicillin-clavulanic acid (AUGMENTIN) 500-125 mg per tablet TAKE 1 TABLET (500 MG) BY MOUTH IN THE MORNING AND AT BEDTIME. - bicalutamide (CASODEX) 50 mg tablet Take 50 mg by mouth. - dicyclomine (BENTYL) 20 mg tablet Take 20 mg by mouth. - fluticasone (FLONASE) 50 mcg/actuation nasal spray Use in the nose. - meloxicam (MOBIC) 7.5 mg tablet TAKE ONE TABLET BY MOUTH TWICE A DAY WITH FOOD NEEDED FOR ARTHRITIS PAIN - Lactobac 42/Bifid 8/colost/FOS (PROBIOTIC PLUS COLOSTRUM ORAL) Take by mouth. - calcium carbonate/vitamin D3 (CALTRATE 600 + D ORAL) Take by mouth. Problem List As Of Date 09/07/2023 Noted Resolved Platelets decreased (HCC) [D69.6] 05/08/2023 Visit Notes: >> Dara Russell LPN Liz Sep 07, 2023 10:22 AM Status: Signed AUA= 14 Disposition: Return in about 6 months (around 03/08/2024). Follow-up and Disposition History for Encounter Date Provider Department Center 09/07/2023 [id number] RUIZ Encounter Status:Closed by Jennifer RUIZ on 09/14/23 [facility] Lab Reportson 08-29-2023 Lab Reports [id number] Normal [facility] Ambulatory Visit Summaryon 1 10-29-2022 Ambulatory Visit Summary JHONATHAN AGUILAR :1945 Visit Date:08/28/2023 Ambulatory Visit Instructions Your Diagnosis Prostate cancer Nocturia Family history of prostate cancer in father Your Care Team Attending Physician - MALOU MCGREGOR, German Colmenares Primary Care Physician - Marla Fortune This Is Your Medications List bicalutamide (bicalutamide 50 mg Tab) solifenacin (Vesicare 10 mg Tab) Contact prescribing physician if questions or concerns Misc Prescription (Handicap Placard) acetaminophen (Tylenol) amoxicillin-clavulanate (amoxicillin-clavulanate 500 mg-125 mg Tab) bifidobacterium-lactobacil jb (Probiotic + Colostrum) dicyclomine (dicyclomine 20 mg Tab) fluticasone nasal (Flonase 0.05 mg/inh [place]) meloxicam (meloxicam 7.5 mg Tab) Procedures Performed Brachytherapy (07/27/2023), Transrectal needle biopsy of prostate (03/07/2023), Biopsy (02/16/2023), Cataract, Cyst, Hip arthroplasty, Surgery. Discharge Vitals Heart Rate (Peripheral) 74 Respiratory Rate 16 Blood Pressure 135/79 Height 178 cm Height 70 in Weight 100 kg Weight 220 lb BMI 31.56 What to do next Scheduled Follow-Up Appointments Monday 8:45 AM EST With: MALOU MCGREGOR, German Colmenares Where: [facility] [place] [address]- \.br\ You Need to Schedule the Following Appointments\. br\ Follow Up with MALOU MCGREGOR, German Colmenares, URL When: In 2 weeks\.br\ Comments:\.br\ appt made for 09/15/23 w/PSA and Lupron\.br\ Where:\.br\ [facility] [address]\.br\ [place] [address]-\.br\ Medications\.b r\ What How Much When Why Instructions\. br\ Changed solifenacin (Vesicare 10 mg Tab) 1 Tablets By Mouth Every day Pickup at [facility]\.br\ Unchanged bicalutamide (bicalutamide 50 mg Tab) 1 Tablets By Mouth Every 24 hours Duration: 30 Days\.br\ Unchanged acetaminophen (Tylenol) By Mouth Contact prescribing physician if questions or concerns \.br\ Unchanged amoxicillin-cl avulanate (amoxicillin-c lavulanate 500 mg-125 mg Tab) Contact prescribing physician if questions or concerns \.br\ Unchanged bifidobacteriu m-lactobacillu s (Probiotic + Colostrum) By Mouth Every day Contact prescribing physician if questions or concerns \.br\ Unchanged dicyclomine (dicyclomine 20 mg Tab) 1 Tablets By Mouth 4 times a day as needed for Other (see comment) for IBS Contact prescribing physician if questions or concerns \.br\ Unchanged fluticasone nasal (Flonase 0.05 mg/ inh [place]) 2 Sprays Nasal Inhalation Every day Fluid level behind tympanic membrane of both ears Seasonal allergies BMI 29.0-29.9,adul t Non-smoker each nostril Contact prescribing physician if questions or concerns \.br\ Unchanged meloxicam (meloxicam 7.5 mg Tab) 1 Tablets By Mouth 2 times a day as needed for Arthritis take with food Contact prescribing physician if questions or concerns \.br\ Unchanged Misc Prescription (Handicap Placard) See instructions Expires in 5 years Contact prescribing physician if questions or concerns \.br\ Pharmacy Information\.b r\ [facility]: [address], [place] [id number] [phone]\.br\ Allergies\.br\ CeleBREX (Unknown)\.br\ Orudis (Unknown)\.br\ codeine (Unknown)\.br\ oxyCODONE (Lightheaded)\ .br\ Problems\.br\ Ongoing - Any problem that you are currently receiving treatment for.\.br\ BMI 28.0-28.9,adul t\.br\ Family history of prostate cancer in father\.br\ Fluid level behind tympanic membrane of both ears\.br\ Former smoker\.br\ Hip pain\.br\ Inflammatory polyarthropath y\.br\ Nocturia\.br\ Other mechanical complication of internal left hip prosthesis, initial encounter\.br\ Over weight\.br\ Prostate cancer\.br\ Seasonal allergies\.br\ Unilateral primary osteoarthritis , left hip\.br\ Historical - Any problem that you are no longer receiving treatment for.\.br\ Arthritis\.br\ Arthritis\.br\ GERD - Gastro-esophag eal reflux disease\.br\ IBS - Irritable bowel syndrome\.br\ Sciatica\.br\ Patient Survey\.br\ You may receive a survey via text or e-mail asking about your office visit. Please share your experience with us by completing your survey. We appreciate your feedback and thank you for choosing us for your care.\.br\ Education Materials\.br\ Brachytherapy for Prostate Cancer\.br\ Brachytherapy for prostate cancer is a type of internal radiation treatment that involves placing a source of radiation right inside the prostate gland. This allows the delivery of a higher dose of radiation than would be possible with external radiation therapy treatment. There are many types of brachytherapy: \.br\ ? \.br\ Low-dose rate (LDR) therapy. This involves temporary or permanent implants of radioactive seeds or pellets that give off a low dose of radiation.\.br \ ? \.br\ Temporary low-dose implants are left in the prostate for 1?7 days. The radioactive material is contained within a delivery tool, which may be a needle, a small, thin tube (catheter), or another type of applicator. You will need to stay in the hospital while the delivery tool and radioactive material are in place.\.br\ ? \.br\ Permanent low-dose implants are left in the prostate. They slowly give off radiation for many months after they are inserted. After the radiation is gone, they just stay in the body. They do not cause any harm and are not removed.\.br\ ? \.br\ High-dose rate (HDR) therapy. This involves inserting a material that gives off a higher dose of radiation for only a few minutes. The radioactive material is often wires or ribbons contained within a delivery tool (needle, applicator, or catheter). The delivery tool is removed after treatment, and no radioactive material is left in the prostate.\.br\ In brachytherapy, the radiation does not travel far from the prostate, so healthy tissues around the prostate receive only a small dose of radiation. This helps to protect those tissues from injury. In some cases, brachytherapy may be given along with external beam radiation.\.br \ Tell a health care provider about:\.br\ ? \.br\ Any allergies you have.\.br\ ? \.br\ All medicines you are taking, including vitamins, herbs, eye drops, creams, and pjyg-gmu-loziq er medicines.\.br \ ? \.br\ Any problems you or family members have had with anesthetic medicines.\.br \ ? \.br\ Any bleeding problems you have.\.br\ ? \.br\ Any surgeries you have had.\.br\ ? \.br\ Any medical conditions you have.\.br\ ? \.br\ Any prostate infections you have had.\.br\ What are the risks?\.br\ Generally, this is a safe procedure. However, problems may occur, including:\.br \ ? \.br\ Inflammation of the rectum.\.br\ ? \.br\ Problems getting or keeping an erection (erectile dysfunction).\ .br\ ? \.br\ Inability to control when you urinate or have bowel movements (incontinence) .\.br\ ? \.br\ Damage to nearby structures or organs.\.br\ ? \.br\ Diarrhea.\.br\ ? \.br\ Bleeding.\.br\ What happens before the procedure?\.br \ Staying hydrated\.br\ \.br\ Follow instructions from your health care provider about hydration, which may include:\.br\ ? \.br\ Up to 2 hours before the procedure ? you may continue to drink clear liquids, such as water, clear fruit juice, black coffee, and plain tea.\.br\ Eating and drinking restrictions\. br\ Follow instructions from your health care provider about eating and drinking, which may include:\.br\ ? \.br\ 8 hours before the procedure ? stop eating heavy meals or foods, such as meat, fried foods, or fatty foods.\.br\ ? \.br\ 6 hours before the procedure ? stop eating light meals or foods, such as toast or cereal.\.br\ ? \.br\ 6 hours before the procedure ? stop drinking milk or drinks that contain milk.\.br\ ? \.br\ 2 hours before the procedure ? stop drinking clear liquids.\.br\ Medicines\.br\ ? \.br\ Ask your health care provider about:\.br\ ? \.br\ Changing or stopping your regular medicines. This is especially important if you are taking diabetes medicines or blood thinners.\.br\ ? \.br\ Taking medicines such as aspirin and ibuprofen. These medicines can thin your blood. Do not take these medicines unless your health care provider tells you to take them.\.br\ ? \.br\ Taking jrdb-oqs-dkrwa er medicines, vitamins, herbs, and supplements.\. br\ ? \.br\ Follow your health care provider's instructions about cleaning out your bowels.\.br\ Surgery safety\.br\ Ask your health care provider:\.br\ ? \.br\ How your surgery site will be marked.\.br\ ? \.br\ What steps will be taken to help prevent infection. These may include:\.br\ ? \.br\ Removing hair at the procedure site.\.br\ ? \.br\ Washing skin with a germ-killing soap.\.br\ ? \.br\ Taking antibiotic medicine before and after [facility] Patient Educationon 08-28-20 Patient Education Oncology Brachytherapy for Prostate Cancer Brachytherapy for prostate cancer is a type of internal radiation treatment that involves placing a source of radiation right inside the prostate gland. This allows the delivery of a higher dose of radiation than would be possible with external radiation therapy treatment. There are many types of brachytherapy: ? Low-dose rate (LDR) therapy. This involves temporary or permanent implants of radioactive seeds or pellets that give off a low dose of radiation. ? Temporary low-dose implants are left in the prostate for 1?7 days. The radioactive material is contained within a delivery tool, which may be a needle, a small, thin tube (catheter), or another type of applicator. You will need to stay in the hospital while the delivery tool and radioactive material are in place. ? Permanent low-dose implants are left in the prostate. They slowly give off radiation for many months after they are inserted. After the radiation is gone, they just stay in the body. They do not cause any harm and are not removed. ? High-dose rate (HDR) therapy. This involves inserting a material that gives off a higher dose of radiation for only a few minutes. The radioactive material is often wires or ribbons contained within a delivery tool (needle, applicator, or catheter). The delivery tool is removed after treatment, and no radioactive material is left in the prostate. In brachytherapy, the radiation does not travel far from the prostate, so healthy tissues around the prostate receive only a small dose of radiation. This helps to protect those tissues from injury. In some cases, brachytherapy may be given along with external beam radiation. Tell a health care provider about: ? Any allergies you have. ? All medicines you are taking, including vitamins, herbs, eye drops, creams, and lgfl-xme-rttbhkm medicines. ? Any problems you or family members have had with anesthetic medicines. ? Any bleeding problems you have. ? Any surgeries you have had. ? Any medical conditions you have. ? Any prostate infections you have had. What are the risks? Generally, this is a safe procedure. However, problems may occur, including: ? Inflammation of the rectum. ? Problems getting or keeping an erection (erectile dysfunction). ? Inability to control when you urinate or have bowel movements (incontinence). ? Damage to nearby structures or organs. ? Diarrhea. ? Bleeding. What happens before the procedure? Staying hydrated Follow instructions from your health care provider about hydration, which may include: ? Up to 2 hours before the procedure ? you may continue to drink clear liquids, such as water, clear fruit juice, black coffee, and plain tea. Eating and drinking restrictions Follow instructions from your health care provider about eating and drinking, which may include: ? 8 hours before the procedure ? stop eating heavy meals or foods, such as meat, fried foods, or fatty foods. ? 6 hours before the procedure ? stop eating light meals or foods, such as toast or cereal. ? 6 hours before the procedure ? stop drinking milk or drinks that contain milk. ? 2 hours before the procedure ? stop drinking clear liquids. Medicines ? Ask your health care provider about: ? Changing or stopping your regular medicines. This is especially important if you are taking diabetes medicines or blood thinners. ? Taking medicines such as aspirin and ibuprofen. These medicines can thin your blood. Do not take these medicines unless your health care provider tells you to take them. ? Taking rnmi-tzt-mqvvzys medicines, vitamins, herbs, and supplements. ? Follow your health care provider's instructions about cleaning out your bowels. Surgery safety Ask your health care provider: ? How your surgery site will be marked. ? What steps will be taken to help prevent infection. These may include: ? Removing hair at the procedure site. ? Washing skin with a germ-killing soap. ? Taking antibiotic medicine before and after the procedure. General instructions ? You may have exams or testing done before or after the procedure. Blood or urine samples may be taken. You may need imaging tests, such as a CT scan or an MRI. ? Do not use any products that contain nicotine or tobacco for at least 4 weeks before the procedure. This includes cigarettes, chewing tobacco, and vaping devices, such as e-cigarettes. If you need help quitting, ask your health care provider. ? Plan to have a responsible adult take you home from the hospital or clinic. ? Plan to have a responsible adult care for you for the time you are told after you leave the hospital or clinic. What happens during the procedure? ? An IV will be put into one of the veins in your arm or hand. ? You may be given: ? A medicine to help you relax (sedative). ? A medicine to numb the area (local anesthetic). ? A medicine to make you fall asleep (general anest (more content not included)... Normal [facility] Urology Office/Clinic Noteon 08-28-2023 Urology Office/Clinic Note Chief Complaint S/P Brachytherapy HPI Staff S/P Brachytherapy 07/27/23 due to Prostate Cancer Additional DX: Fam Hx of Prostate Cancer (father) Pt was started on Casodex 50mg qd therapy in March Post Op catheter removed in our office 08/02. Pt's then called our office 08/03 c/o pt experiencing increased frequency and smaller voids. Pt came in for PVR. Which was 110ml. Pt was then started on VESIcare 5mg qd therapy. (Myrbetriq was too expensive) Last seen by Dr Ruiz 08/09/23 Last Lupron 03/27/23 Pt does have appt 09/15/23 for PSA & Lupron Injection. Last PSA 08/24/23- 0.05 Increased frequency. Usually after supper. Intermittent. 3x/night. Denies difficulty with stream. Denies loss of bladder control. Denies pain/burning and blood in urine. History of Present Illness Tests reviewed: reviewed UA and External Records. I have reviewed the previous health record information and history for this patient from . I have reviewed and verified the staff HPI to be accurate for this encounter. There have been no associated fever, chills, flank pain, or blood in the urine. Denies any urinary infections since last encounter. Review of Systems PHQ Score Initial Depression Screen Score: 0 SCORE ROS - Provider Constitutional: denies weight loss, denies hot flashes. Eyes: denies eye problems. Gastrointestinal: denies nausea, denies vomiting. Cardiovascular: denies chest pain or angina. Integumentary: no dryness Musculoskeletal: denies musculoskeletal symptoms. ENMT: denies otolaryngeal symptoms. Respiratory: no shortness of breath. Heme/Lymph: denies easy bleeding tendency, denies easy bruising tendency. Psychiatric: no confusion, no anxiety. Genitourinary: See HPI. Physical Exam Vitals & Measurements HR: 74(Peripheral) RR: 16 BP: 135/79 HT: 70 in HT: 178 cm WT: 100 kg WT: 220 lb BMI: 31.56 General Appearance: alert, no distress, well nourished, well developed male. Assessment/Plan 1. Prostate cancer (C61: Malignant neoplasm of prostate) PSA: 09/25/14 - 1.11 02/10/23 - 26.2 08/24/23 - 0.05 JEFERSON 03/01/23 - Abnormal prostate, estimated weight 40 gms, yes hard nodule observed. rock hard prostate L >>R. TRUS/bx 03/07/23 - Cannelton 8 (4+4) x 4 cores, highest % of core involvement 85%. Cannelton 7 (4+3) x 5 cores, highest % of core involvement 66%. SADA x 3 cores. All cores taken were abnormal. CT AP w/wo con 03/24/23 - negative for metastatic disease in abd/pelvis NM Bone scan 03/24/23 - negative for metastatic disease to the bones. S/P Brachytherapy 07/27/23 Pt was started on Casodex 50mg qd therapy in March. Last seen by Dr Ruiz 08/09/23. Last Lupron 03/27/23 Pt does have appt 09/15/23 for PSA & Lupron Injection. This will be the last Lupron shot he gets unless his PSA starts to rise again. Discussed PSA level with pt, low. Advised pt that the PSA has decreased from previous and great that it has dropped so fast since his procedure. Will continue to monitor. Follow up in 2 weeks w/PSA and Lupron. All questions/concerns were discussed. Pt to call the office if he encounters any issues prior. Pt acknowledges understanding. 2. Nocturia (R35.1: Nocturia) Post Op catheter removed in our office 08/02. Pt's then called our office 08/03 c/o pt experiencing increased frequency and smaller voids. Pt came in for PVR. Which was 110ml. Pt was then started on VESIcare 5mg qd therapy. (Myrbetriq was too expensive) Pt states that he wakes up 4-5x/night. Advised pt that we can increase the dosage of the VESIcare to 10mg QD. Advised pt that it is normal to have these sxs after his Brachytherapy procedure and it should resolve after some time. -Will start VESIcare 10mg QD. New script sent to pharmacy on file. Discussed the medication side effects, and the patient will monitor closely for these, as well as for symptom improvement. If severe side effects occur, the medication should be stopped and the office notified. 3. Family history of prostate cancer in father (Z80.42: Family history of malignant neoplasm of prostate) Pt's father had prostate/colon cancer, treated with radiation seeds. Follow-up With When Contact Information German WESTFALL MD, URL In 2 weeks [facility] [address], [place] [address]- Additional Instructions: appt made for 09/15/23 w/PSA and Lupron Patient Education Brachytherapy for Prostate Cancer I, Margy Shields , personally scribed for Dr. Westfall on 08/28/2023 09:58:21. . .. Problem List/Past Medical History Ongoing BMI 28.0-28.9,adult Family history of prostate cancer in father Fluid level behind tympanic membrane of both ears Former smoker Hip pain Inflammatory polyarthropathy Nocturia Other mechanical complication of internal left hip prosthesis, initial encounter Over weight Prostate cancer Seasonal allergies Unilateral primary osteoarthritis (more content not included)... Normal [facility] Comment on above: Result Comment: Elec tronically Signed By: German WESTFALL MD\.br\Date and Time Signed: 08/28/23 10:00 EST\.br\Electronically Co-Signed By: Margy Shields\.br\Date and Time Co-Signed: 08/28/23 09:58 EST [facility] 08-24-2023 Prostate specific Ag [Mass/Vol] 0.05 ng/mL Normal <2.60 [facility] Comment on above: Order Comment: Speci men Type: BLOOD SPECIMEN Ordering Facility: [facility] Address: [address] [place] [address] Result Comment: Tota l PSA test methodology used is the Electrochemiluminescence Immunoassay by [employer]. Total PSA values by differing methodologies cannot be interchanged. Performed By: #### 2 [id number] #### [facility] CLIA [id number] [address] [place] [address] [place] [address] [place] Insurance Correspondenceon 1 10-22-2022 Insurance Correspondence [id number]#1.00TIFF [facility] Consultation Noteon 08-14-20 Consultation Note [id number]#1.00TIFF [facility] CNOVon 08-09-2023 CNOV Office Visit (RADTSA ) -- JHONATHAN AGUILAR ([id number]) 1945 M Date Time Provider Department 08/09/23 9:45 AM Jennifer RUIZ During your visit today, we recorded the following information about you: Temperature Pulse Respiration Blood pressure 97 degrees 58/minute 16/minute 147/73 Weight 96.6 kg Yvonne DaraDONNA clinton 08/09/2023 10:13 AM Signed AUA= 21 Jennifer Ruiz MD 08/09/2023 10:13 AM Signed Radiation Oncology - Follow Up Note PATIENT NAME: Jhonathan Aguilar PATIENT DIAGNOSIS: Prostate adenocarcinoma, 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 Prostate cancer (C61), 2019 NCCN Risk Group: High Risk Group RADIATION SUMMARY: DATES OF TREATMENT: Pelvis External Beam: 04/26/23 - 06/02/23 Prostate Brachytherapy: 07/27/23 DELIVERED DOSE: Area: Pelvis/Prostate 45 Gy in 25 fractions, 3 ARCS, VMAT, 10MV WITH DAILY CBCT Prostate Brachytherapy 100 Gy Pd-103,43 sources, 68.8 mCi INTERVAL HISTORY: The patient presents for routine follow-up after recent brachytherapy. Doing well. Catheter removed. Some initial increased urgency frequency and decreased emptying however this is improved after starting Vesicare. Denies any fever hematuria. Having some mild dysuria. PSA HISTORY: No results found for: PSA , PSAPER ALLERGIES Allergen Reactions Codeine Mental Status Change Oxycodone Other: See Comments Dizziness, syncope solifenacin (VESICARE) 5 mg tablet Take 1 tablet by mouth every afternoon. amoxicillin-clavulanic acid (AUGMENTIN) 500-125 mg per tablet TAKE 1 TABLET (500 MG) BY MOUTH IN THE MORNING AND AT BEDTIME. bicalutamide (CASODEX) 50 mg tablet Take 50 mg by mouth. dicyclomine (BENTYL) 20 mg tablet Take 20 mg by mouth. meloxicam (MOBIC) 7.5 mg tablet TAKE ONE TABLET BY MOUTH TWICE A DAY WITH FOOD NEEDED FOR ARTHRITIS PAIN Lactobac 42/Bifid 8/colost/FOS (PROBIOTIC PLUS COLOSTRUM ORAL) Take by mouth. calcium carbonate/vitamin D3 (CALTRATE 600 + D ORAL) Take by mouth. fluticasone (FLONASE) 50 mcg/actuation nasal spray Use in the nose. REVIEW OF SYSTEMS: D/N = 4-7/2-4 Hematuria: none Dysuria: Yes improving Incontinence: none Urgency: moderate Catheter use: No Medications to aid urination: Vesicare - Total AUA Score: 21 Bowel movement frequency: 1/day Bowel movement quality: normal Blood per rectum: none Last colonoscopy: na Androgen deprivation: Lupron, Casodex PHYSICAL EXAM: BP 147/73 Pulse (!) 58 Temp 36.1 ?C (97 ?F) Resp 16 Wt 96.6 kg (213 lb) SpO2 98% BMI 29.50 kg/m? KPS: 100 General Appearance: Alert and oriented. No acute distress. Rectal exam is deferred. Perineal area without ecchymosis tenderness or seroma. ASSESSMENT/PLAN: Prostate adenocarcinoma, initial PSA 26.2, biopsy Cannelton score 4 + 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 Prostate cancer (C61), 2019 NCCN Risk Group: High Risk Group Patient overall doing well with improving post-implant urinary issues. No other new problems. Plan to have patient back in 2 weeks for post-implant CT, return for follow-up exam in 4 weeks. He continues close follow-up with Dr. Westfall as well. Signed by: Jennifer Ruiz MD cc: Dr. Westfall Allergies As of Date: 08/09/2023 Noted Allergy Reaction CODEINE 04/05/2023 1 - Mental Status Change OXYCODONE 04/05/2023 14 - Other: See Comments Comments: Dizziness, syncope Date Reviewed: 08/09/2023 Reviewed by: Dara Russell LPN - Fully Assessed Reason for Visit: Prostate Cancer [590] Primary Visit Diagnosis:Malignant neoplasm of prostate (HCC) [C61] Order(s):PSA/PROSTSPECAG DIAG [SQPSA] Order #: [id number] FUTURE Prescriptions as of 08/09/2023 - solifenacin (VESICARE) 5 mg tablet Take 1 tablet by mouth every afternoon. - amoxicillin-clavulanic acid (AUGMENTIN) 500-125 mg per tablet TAKE 1 TABLET (500 MG) BY MOUTH IN THE MORNING AND AT BEDTIME. - bicalutamide (CASODEX) 50 mg tablet Take 50 mg by mouth. - dicyclomine (BENTYL) 20 mg tablet Take 20 mg by mouth. - fluticasone (FLONASE) 50 mcg/actuation nasal spray Use in the nose. - meloxicam (MOBIC) 7.5 mg tablet TAKE ONE TABLET BY MOUTH TWICE A DAY WITH FOOD NEEDED FOR ARTHRITIS PAIN - Lactobac 42/Bifid 8/colost/FOS (PROBIOTIC PLUS COLOSTRUM ORAL) Take by mouth. - calcium carbonate/vitamin D3 (CALTRATE 600 + D ORAL) Take by mouth. Problem List As Of Date 08/09/2023 Noted Resolved Platelets decreased (HCC) [D69.6] 05/08/2023 Visit Notes: >> Dara Russell LPN Wed Aug 09, 2023 9:45 AM Status: Signed AUA= 21 Disposition: Return in about 4 weeks (around 09/06/2023). Follow-up and Disposition History for Encounter Date Pr (more content not included)... Normal [facility] RAD - MISCon 07-31-2023 RAD - MISC [id number]#1.00TIFF Normal [facility] [id number]#1.00TIFF Normal [facility] CNOVon 07-27-2023 CNOV Office Visit (RADTSA ) -- VICKJHONATHAN ([id number]) 1945 M Date Time Provider Department 07/27/23 8:00 AM Jennifer RUIZ During your visit today, we recorded the following information about you: Jennifer Ruiz MD 07/27/2023 12:43 PM Signed Date: 07/27/23 Facility: [facility] Procedure: prostate transperineal brachytherapy implant Sources: Pd-103 Anesthesia:general Urologist: Dr. Westfall This is an operative report supplement to Dr. Barros's note. Prior the the implant patient underwent planning using transrectal ultrasound based. The planning including outline of prostate and planning margin around prostate to deliver 100 Gy using Pd 103 sources. Prior to the procedure on the morning of the implant, patient identified by name and hospital ID bracelet. After anesthesia administered patient placed in dorsal-lithotomy position and ultrasound study done showing good correlation with planning images and excellent visualization of the gland. Implant was then carried out using transperineal technique with active ultrasound and fluoroscopic guidance. At the end of the case the treatment planning ultrasound computer showed captured seed located in expected positions. It was determined to add 4 sources to optimize dose target coverage. A total of 43 seeds, 68.8 mCi using 14 needles. Intraoperative dosimetry reviewed showing D90 of >90%, and excelent coverage of gland by the 100% IDL. After the cystoscopy physics performed survey with meter of patient, cystoscopy fluid, floor, trash, work table and general area. No excess activity seen, results documented. La Ruiz MD [facility] Referring Provider: Jennifer RUIZ [[id number]] Allergies As of Date: 07/27/2023 Noted Allergy Reaction CODEINE 04/05/2023 1 - Mental Status Change OXYCODONE 04/05/2023 14 - Other: See Comments Comments: Dizziness, syncope Date Reviewed: 05/29/2023 Reviewed by: Rosa Lau, PARVEEN - Fully Assessed Primary Visit Diagnosis:Malignant neoplasm of prostate (HCC) [C61] Prescriptions as of 07/27/2023 - amoxicillin-clavulanic acid (AUGMENTIN) 500-125 mg per tablet TAKE 1 TABLET (500 MG) BY MOUTH IN THE MORNING AND AT BEDTIME. - bicalutamide (CASODEX) 50 mg tablet Take 50 mg by mouth. - dicyclomine (BENTYL) 20 mg tablet Take 20 mg by mouth. - fluticasone (FLONASE) 50 mcg/actuation nasal spray Use in the nose. - meloxicam (MOBIC) 7.5 mg tablet TAKE ONE TABLET BY MOUTH TWICE A DAY WITH FOOD NEEDED FOR ARTHRITIS PAIN - Lactobac 42/Bifid 8/colost/FOS (PROBIOTIC PLUS COLOSTRUM ORAL) Take by mouth. - calcium carbonate/vitamin D3 (CALTRATE 600 + D ORAL) Take by mouth. Problem List As Of Date 07/27/2023 Noted Resolved Platelets decreased ([facility]) [D69.6] 05/08/2023 Encounter Status:Closed by Jennifer RUIZ on 07/27/23 Normal [facility] Operative Reporton Operative Report [id number]#1.00TIFF Normal [facility] ECG 12-Leadon 07-18-2023 ECG 12-Lead [id number]#1.00TIFF Normal [facility] Lab Reportson 07-14-2023 Lab Reports [id number]#1.00TIFF Normal [facility] Lab Reports [id number]#1.00TIFF Normal [facility] RAD - MISCon 07-14-2023 RAD - MISC [id number]#1.00TIFF [facility] Insurance Correspondenceon 1 Insurance Correspondence [id number]#1.00TIFF [facility] CNOVon 07-05-2023 CNOV Office Visit (RADTSA ) -- JHONATHAN AGUILAR ([id number]) 1945 M Date Time Provider Department 07/05/23 11:30 AM Jennifer RUIZ During your visit today, we recorded the following information about you: Jennifer Ruiz MD 07/06/2023 3:20 PM Signed UNIVERSAL PROTOCOL / SAFETY CHECKLIST Procedure to be Performed: Prostate volume study Sign In: A Moment of CARE was completed. Personnel directly involved with the procedure wore the appropriate PPE (Personal Protective Equipment). Patient/Surrogate Stated/Verified: PATIENT VERIFIED(optional for EMERGENT procedures): Patient name, Date of , Relevant allergies, and The intended procedure Time Out Communication: Intended patient and procedure match the source documents. Consent documented and matches the intended procedure. Sign Out: SIGN OUT (optional for EMERGENT procedures): No specimen collected. All instruments, equipment, possible retained foreign bodies accounted for. Post-procedure follow-up management communicated and Plan of Care Visit completed when applicable. Jennifer Ruiz MD Referring Provider: Jennifer RUIZ [[id number]] Allergies As of Date: 07/05/2023 Noted Allergy Reaction CODEINE 04/05/2023 1 - Mental Status Change OXYCODONE 04/05/2023 14 - Other: See Comments Comments: Dizziness, syncope Date Reviewed: 05/29/2023 Reviewed by: Rosa Lau, RN - Fully Assessed Reason for Visit: Volume Study [4052] Primary Visit Diagnosis:Malignant neoplasm of prostate (HCC) [C61] Prescriptions as of 07/06/2023 - amoxicillin-clavulanic acid (AUGMENTIN) 500-125 mg per tablet TAKE 1 TABLET (500 MG) BY MOUTH IN THE MORNING AND AT BEDTIME. - bicalutamide (CASODEX) 50 mg tablet Take 50 mg by mouth. - dicyclomine (BENTYL) 20 mg tablet Take 20 mg by mouth. - fluticasone (FLONASE) 50 mcg/actuation nasal spray Use in the nose. - meloxicam (MOBIC) 7.5 mg tablet TAKE ONE TABLET BY MOUTH TWICE A DAY WITH FOOD NEEDED FOR ARTHRITIS PAIN - Lactobac 42/Bifid 8/colost/FOS (PROBIOTIC PLUS COLOSTRUM ORAL) Take by mouth. - calcium carbonate/vitamin D3 (CALTRATE 600 + D ORAL) Take by mouth. Problem List As Of Date 07/05/2023 Noted Resolved Platelets decreased (HCC) [D69.6] 05/08/2023 Encounter Status:Closed by Jennifer RUIZ on 07/06/23 Normal [facility] Consent for Procedure/Surger yon 06-21-2023 Consent for Procedure/Surgery [id number]#[id number]:127 [facility] Consultation Noteon 06-14-20 Consultation Note [id number]#1.00CD:127 [facility] CNOVon 05-29-2023 CNOV Office Visit (RADTSA ) -- JHONATHAN AGUILAR ([id number]) 1945 M Date Time Provider Department 05/29/23 8:45 AM Jennifer RUIZ During your visit today, we recorded the following information about you: Temperature Pulse Respiration Blood pressure 96.7 degrees 72/minute 18/minute 144/71 Weight 95.3 kg Jennifer Ruiz, MD 05/29/2023 9:10 AM Signed Radiation Oncology - On Treatment Review (OTR) Note PATIENT NAME: Jhonathan Aguilar PATIENT DIAGNOSIS: Prostate adenocarcinoma, 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 Prostate cancer (C61), 2019 NCCN Risk Group: High Risk Group Clinical State: Localized Cancer - New Diagnosis COURSE: definitive Current dose: 3780 cGy in 21 fx Planned dose: 4500 cGy in 25 fx SUBJECTIVE: No new problems. PHYSICAL EXAM: 05/29/23 0852 BP: 144/71 Pulse: 72 Resp: 18 Temp: (!) 35.9 ?C (96.7 ?F) SpO2: 97% Weight: 95.3 kg (210 lb) KPS: 100 General Appearance: Alert and oriented. No acute distress. IMAGING/LAB RESULTS: Hemoglobin (g/dL) Date Value 05/04/2023 14.3 Hematocrit (%) Date Value 05/04/2023 40.3 WBC (k/uL) Date Value 05/04/2023 3.99 Platelet Count (k/uL) Date Value 05/04/2023 125 TOXICITY ASSESSMENT (CTC v4.0): Fatigue:grade 0 - No symptoms Radiation Dermatitis: grade 0 - No symptoms Diarrhea:grade 0 - No symptoms Proctitis: grade 0 - No symptoms Urinary frequency: grade 1 Dysuria: grade 0 - No symptoms Urinary incontinence: grade 0 (No symptoms) Urinary retention: grade 0 - No symptoms Treatment chart checked: Yes Patient treatment site reviewed and verified:Yes Port films reviewed and current:Yes Medications started: None ASSESSMENT/PLAN: Clinically stable. Toxicity within expected parameters. Continue radiation treatment as planned. Patient will finish this week. Discussed upcoming brachytherapy boost. Jennifer Ruiz MD Allergies As of Date: 05/29/2023 Noted Allergy Reaction CODEINE 04/05/2023 1 - Mental Status Change OXYCODONE 04/05/2023 14 - Other: See Comments Comments: Dizziness, syncope Date Reviewed: 05/29/2023 Reviewed by: Weyer, Rosa, RN - Fully Assessed Reason for Visit: Radiotherapy On-treatment Visit [1722] Primary Visit Diagnosis:Malignant neoplasm of prostate (HCC) [C61] Prescriptions as of 05/29/2023 - amoxicillin-clavulanic acid (AUGMENTIN) 500-125 mg per tablet TAKE 1 TABLET (500 MG) BY MOUTH IN THE MORNING AND AT BEDTIME. - bicalutamide (CASODEX) 50 mg tablet Take 50 mg by mouth. - dicyclomine (BENTYL) 20 mg tablet Take 20 mg by mouth. - fluticasone (FLONASE) 50 mcg/actuation nasal spray Use in the nose. - meloxicam (MOBIC) 7.5 mg tablet TAKE ONE TABLET BY MOUTH TWICE A DAY WITH FOOD NEEDED FOR ARTHRITIS PAIN - Lactobac 42/Bifid 8/colost/FOS (PROBIOTIC PLUS COLOSTRUM ORAL) Take by mouth. - calcium carbonate/vitamin D3 (CALTRATE 600 + D ORAL) Take by mouth. Problem List As Of Date 05/29/2023 Noted Resolved Platelets decreased (HCC) [D69.6] 05/08/2023 Encounter Status:Closed by Jennifer RUIZ on 05/29/23 [facility] CNOVon 05-23-2023 CNOV Office Visit (RADDIONNEA ) -- REXSHANE COOLY ([id number]) 1945 M Date Time Provider Department 05/23/23 8:45 AM Jennifer RUIZ RADTSA During your visit today, we recorded the following information about you: Temperature Pulse Respiration Blood pressure 97.5 degrees 70/minute 16/minute 165/74 Weight 93.9 kg Jennifer Ruiz MD 05/23/2023 8:56 AM Signed Radiation Oncology - On Treatment Review (OTR) Note PATIENT NAME: Jhonathan Aguilar PATIENT DIAGNOSIS: Prostate adenocarcinoma, 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 Prostate cancer (C61), 2019 NCCN Risk Group: High Risk Group Clinical State: Localized Cancer - New Diagnosis COURSE: definitive Current dose: 3060 cGy in 17 fx Planned dose: 4500 cGy in 25 fx SUBJECTIVE: No new problems. PHYSICAL EXAM: 05/23/23 0835 BP: 165/74 Pulse: 70 Resp: 16 Temp: 36.4 ?C (97.5 ?F) SpO2: 98% Weight: 93.9 kg (207 lb) KPS: 100 General Appearance: Alert and oriented. No acute distress. IMAGING/LAB RESULTS: Hemoglobin (g/dL) Date Value 05/04/2023 14.3 Hematocrit (%) Date Value 05/04/2023 40.3 WBC (k/uL) Date Value 05/04/2023 3.99 Platelet Count (k/uL) Date Value 05/04/2023 125 TOXICITY ASSESSMENT (CTC v4.0): Fatigue:grade 0 - No symptoms Radiation Dermatitis: grade 0 - No symptoms Diarrhea:grade 0 - No symptoms Proctitis: grade 0 - No symptoms Urinary frequency: grade 1 Dysuria: grade 0 - No symptoms Urinary incontinence: grade 0 (No symptoms) Urinary retention: grade 0 - No symptoms Treatment chart checked: Yes Patient treatment site reviewed and verified:Yes Port films reviewed and current:Yes Medications started: None ASSESSMENT/PLAN: Clinically stable. Toxicity within expected parameters. Continue radiation treatment as planned. Jennifer Ruiz MD Allergies As of Date: 05/23/2023 Noted Allergy Reaction CODEINE 04/05/2023 1 - Mental Status Change OXYCODONE 04/05/2023 14 - Other: See Comments Comments: Dizziness, syncope Date Reviewed: 05/23/2023 Reviewed by: Dara Russell LPN - Fully Assessed Reason for Visit: Radiotherapy On-treatment Visit [1722] Primary Visit Diagnosis:Malignant neoplasm of prostate (HCC) [C61] Prescriptions as of 05/23/2023 - amoxicillin-clavulanic acid (AUGMENTIN) 500-125 mg per tablet TAKE 1 TABLET (500 MG) BY MOUTH IN THE MORNING AND AT BEDTIME. - bicalutamide (CASODEX) 50 mg tablet Take 50 mg by mouth. - dicyclomine (BENTYL) 20 mg tablet Take 20 mg by mouth. - fluticasone (FLONASE) 50 mcg/actuation nasal spray Use in the nose. - meloxicam (MOBIC) 7.5 mg tablet TAKE ONE TABLET BY MOUTH TWICE A DAY WITH FOOD NEEDED FOR ARTHRITIS PAIN - Lactobac 42/Bifid 8/colost/FOS (PROBIOTIC PLUS COLOSTRUM ORAL) Take by mouth. - calcium carbonate/vitamin D3 (CALTRATE 600 + D ORAL) Take by mouth. Problem List As Of Date 05/23/2023 Noted Resolved Platelets decreased (HCC) [D69.6] 05/08/2023 Encounter Status:Closed by Jennifer RUIZ on 05/23/23 [facility] CNOVon 05-16-2023 CNOV Office Visit (RADTSA ) -- REXSILVINAJHONATHAN ([id number]) 1945 M Date Time Provider Department 05/16/23 9:00 AM Jennifer RUIZ RADTSA During your visit today, we recorded the following information about you: Temperature Pulse Respiration Weight 97 degrees 59/minute 16/minute 94.8 kg Jennifer Ruiz MD 05/16/2023 8:52 AM Signed Radiation Oncology - On Treatment Review (OTR) Note PATIENT NAME: Jhonathan Aguilar PATIENT DIAGNOSIS: Prostate adenocarcinoma, 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 Prostate cancer (C61), 2019 NCCN Risk Group: High Risk Group Clinical State: Localized Cancer - New Diagnosis COURSE: definitive Current dose: 2340 cGy in 13 fx Planned dose: 4500 cGy in 25 fx SUBJECTIVE: No new problems. PHYSICAL EXAM: 05/16/23 0841 Pulse: (!) 59 Resp: 16 Temp: 36.1 ?C (97 ?F) SpO2: 98% Weight: 94.8 kg (209 lb) KPS: 100 General Appearance: Alert and oriented. No acute distress. IMAGING/LAB RESULTS: Hemoglobin (g/dL) Date Value 05/04/2023 14.3 Hematocrit (%) Date Value 05/04/2023 40.3 WBC (k/uL) Date Value 05/04/2023 3.99 Platelet Count (k/uL) Date Value 05/04/2023 125 TOXICITY ASSESSMENT (CTC v4.0): Fatigue:grade 0 - No symptoms Radiation Dermatitis: grade 0 - No symptoms Diarrhea:grade 0 - No symptoms Proctitis: grade 0 - No symptoms Urinary frequency: grade 1 Dysuria: grade 0 - No symptoms Urinary incontinence: grade 0 (No symptoms) Urinary retention: grade 0 - No symptoms Treatment chart checked: Yes Patient treatment site reviewed and verified:Yes Port films reviewed and current:Yes Medications started: None ASSESSMENT/PLAN: Clinically stable. Toxicity within expected parameters. Continue radiation treatment as planned. Jennifer Ruiz MD Allergies As of Date: 05/16/2023 Noted Allergy Reaction CODEINE 04/05/2023 1 - Mental Status Change OXYCODONE 04/05/2023 14 - Other: See Comments Comments: Dizziness, syncope Date Reviewed: 05/16/2023 Reviewed by: Dara Russell LPN - Fully Assessed Reason for Visit: Radiotherapy On-treatment Visit [1722] Primary Visit Diagnosis:Malignant neoplasm of prostate (HCC) [C61] Prescriptions as of 05/16/2023 - amoxicillin-clavulanic acid (AUGMENTIN) 500-125 mg per tablet TAKE 1 TABLET (500 MG) BY MOUTH IN THE MORNING AND AT BEDTIME. - bicalutamide (CASODEX) 50 mg tablet Take 50 mg by mouth. - dicyclomine (BENTYL) 20 mg tablet Take 20 mg by mouth. - fluticasone (FLONASE) 50 mcg/actuation nasal spray Use in the nose. - meloxicam (MOBIC) 7.5 mg tablet TAKE ONE TABLET BY MOUTH TWICE A DAY WITH FOOD NEEDED FOR ARTHRITIS PAIN - Lactobac 42/Bifid 8/colost/FOS (PROBIOTIC PLUS COLOSTRUM ORAL) Take by mouth. - calcium carbonate/vitamin D3 (CALTRATE 600 + D ORAL) Take by mouth. Problem List As Of Date 05/16/2023 Noted Resolved Platelets decreased (HCC) [D69.6] 05/08/2023 Encounter Status:Closed by Jennifer RUIZ on 05/16/23 [facility] CNOVon 05-08-2023 CNOV Office Visit (RADTSA ) -- JHONATHAN AGUILAR ([id number]) 1945 M Date Time Provider Department 05/08/23 9:00 AM Jennifer RUIZ RADTSA During your visit today, we recorded the following information about you: Temperature Pulse Respiration Blood pressure 97.4 degrees 68/minute 18/minute 172/84 Weight 93.9 kg Jennifer Ruiz MD 05/08/2023 8:53 AM Signed Radiation Oncology - On Treatment Review (OTR) Note PATIENT NAME: Jhonathan Aguilar PATIENT DIAGNOSIS: Prostate adenocarcinoma, 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 Prostate cancer (C61), 2019 NCCN Risk Group: High Risk Group Clinical State: Localized Cancer - New Diagnosis COURSE: definitive Current dose: 1620 cGy in 9 fx Planned dose: 4500 cGy in 25 fx SUBJECTIVE: Some urinary frequency. Denies obstructive sxs. PHYSICAL EXAM: KPS: 100 General Appearance: Alert and oriented. No acute distress. IMAGING/LAB RESULTS: Hemoglobin (g/dL) Date Value 05/04/2023 14.3 Hematocrit (%) Date Value 05/04/2023 40.3 WBC (k/uL) Date Value 05/04/2023 3.99 Platelet Count (k/uL) Date Value 05/04/2023 125 TOXICITY ASSESSMENT (CTC v4.0): Fatigue:grade 0 - No symptoms Radiation Dermatitis: grade 0 - No symptoms Diarrhea:grade 0 - No symptoms Proctitis: grade 0 - No symptoms Urinary frequency: grade 1 Dysuria: grade 0 - No symptoms Urinary incontinence: grade 0 (No symptoms) Urinary retention: grade 0 - No symptoms Treatment chart checked: Yes Patient treatment site reviewed and verified:Yes Port films reviewed and current:Yes Medications started: None ASSESSMENT/PLAN: Clinically stable. Toxicity within expected parameters. Continue radiation treatment as planned. Jennifer Ruiz MD Allergies As of Date: 05/08/2023 Noted Allergy Reaction CODEINE 04/05/2023 1 - Mental Status Change OXYCODONE 04/05/2023 14 - Other: See Comments Comments: Dizziness, syncope Date Reviewed: 05/08/2023 Reviewed by: Roas Lau RN - Fully Assessed Reason for Visit: Prostate Cancer [590] Primary Visit Diagnosis:Malignant neoplasm of prostate (HCC) [C61] Other Visit Diagnosis:Platelets decreased (HCC) [D69.6] Prescriptions as of 05/08/2023 - amoxicillin-clavulanic acid (AUGMENTIN) 500-125 mg per tablet TAKE 1 TABLET (500 MG) BY MOUTH IN THE MORNING AND AT BEDTIME. - bicalutamide (CASODEX) 50 mg tablet Take 50 mg by mouth. - dicyclomine (BENTYL) 20 mg tablet Take 20 mg by mouth. - fluticasone (FLONASE) 50 mcg/actuation nasal spray Use in the nose. - meloxicam (MOBIC) 7.5 mg tablet TAKE ONE TABLET BY MOUTH TWICE A DAY WITH FOOD NEEDED FOR ARTHRITIS PAIN - Lactobac 42/Bifid 8/colost/FOS (PROBIOTIC PLUS COLOSTRUM ORAL) Take by mouth. - calcium carbonate/vitamin D3 (CALTRATE 600 + D ORAL) Take by mouth. Problem List As Of Date 05/08/2023 Noted Resolved Platelets decreased (HCC) [D69.6] 05/08/2023 Encounter Status:Closed by Jennifer RUIZ on 05/08/23 Normal [facility] CBC W Auto Differential pane l (Bld)on 05-04-2023 Basophils (Bld) [#/Vol] 0.03 10*3/uL Normal <0.11 [facility] Comment on above: Order Comment: Speci men Type: BLOOD SPECIMEN Ordering Facility: [facility] Address: [address] [address] Performed By: #### 5 7021-8 #### [facility] CLIA [id number] [address] [place] [address] 50125 Basophils/100 WBC (Bld) 0.8 % Normal [facility] Comment on above: Order Comment: Speci men Type: BLOOD SPECIMEN Ordering Facility: [facility] Address: [address] [place] [address] Performed By: #### 5 7021-8 #### [facility] CLIA [id number] [address] [place] [address] 85911 Differential cell count method Nom (Bld) Auto Normal [facility] Comment on above: Order Comment: Speci men Type: BLOOD SPECIMEN Ordering Facility: [facility] Address: [address] [address] Performed By: #### 5 7021-8 #### [facility] CLIA [id number] [address] [place] [address]11 Eosinophils (Bld) [#/Vol] 0.19 10*3/uL Normal <0.46 [facility] Comment on above: Order Comment: Speci men Type: BLOOD SPECIMEN Ordering Facility: [facility] Address: [address] [address] Performed By: #### 5 7021-8 #### [facility] CLIA [id number] [address] [place] [address] 16201 Eosinophils/100 WBC (Bld) 4.8 % Normal [facility] Comment on above: Order Comment: Speci men Type: BLOOD SPECIMEN Ordering Facility: [facility] Address: [address] [address] Performed By: #### 5 7021-8 #### [facility] CLIA [id number] [address] [place] [address] 67936 Erythrocyte distribution width (RBC) [Ratio] 12.7 % Normal 11.5-15.0 [facility] Comment on above: Order Comment: Speci men Type: BLOOD SPECIMEN Ordering Facility: [facility] Address: [address] [place] [address] Performed By: #### 5 7021-8 #### [facility] CLIA [id number] [address] [place] [address] 57195 Hematocrit (Bld) [Volume fraction] 40.3 % Normal 39.0-51.0 [facility] Comment on above: Order Comment: Speci men Type: BLOOD SPECIMEN Ordering Facility: [facility] Address: [address] [place] [address] Performed By: #### 5 7021-8 #### [facility] CLIA [id number] [address] [place] [address] 65040 Hemoglobin (Bld) [Mass/Vol] 14.3 g/dL Normal 13.0-17.0 [facility] Comment on above: Order Comment: Speci men Type: BLOOD SPECIMEN Ordering Facility: [facility] Address: [address] [place] [address] Performed By: #### 5 7021-8 #### [facility] CLIA [id number] [address] [place] [address] 46708 Immature granulocytes (Bld) [#/Vol] 10*3/uL Normal <0.10 [facility] Comment on above: Order Comment: Speci men Type: BLOOD SPECIMEN Ordering Facility: [facility] Address: [address] [place] [address] Performed By: #### 5 7021-8 #### [facility] CLIA [id number] [address] [place] [address] 59909 Immature granulocytes/100 WBC (Bld) 0.5 % Normal [facility] Comment on above: Order Comment: Speci men Type: BLOOD SPECIMEN Ordering Facility: [facility] Address: [address] [address] Performed By: #### 5 7021-8 #### [facility] CLIA [id number] [address] [place] [address] 77104 Lymphocytes (Bld) [#/Vol] 1.08 10*3/uL Normal 1.00-4.00 [facility] Comment on above: Order Comment: Speci men Type: BLOOD SPECIMEN Ordering Facility: [facility] Address: [address] [address] Performed By: #### 5 7021-8 #### [facility] CLIA [id number] [address] [place] [address] 93707 Lymphocytes/100 WBC (Bld) 27.1 % Normal [facility] Comment on above: Order Comment: Speci men Type: BLOOD SPECIMEN Ordering Facility: [facility] Address: [address] [address] Performed By: #### 5 7021-8 #### [facility] CLIA [id number] [address] [place] [address] 85271 MCH (RBC) [Entitic mass] 32.4 pg Normal 26.0-34.0 [facility] Comment on above: Order Comment: Speci men Type: BLOOD SPECIMEN Ordering Facility: [facility] Address: [address] [address] Performed By: #### 5 7021-8 #### [facility] CLIA [id number] [address] [place] [address] 20922 MCHC (RBC) [Mass/Vol] 35.5 g/dL Normal 30.5-36.0 [facility] Comment on above: Order Comment: Speci men Type: BLOOD SPECIMEN Ordering Facility: [facility] Address: [address] [address] Performed By: #### 5 7021-8 #### [facility] CLIA [id number] [address] [place] [address] 05127 MCV (RBC) [Entitic vol] 91.4 fL Normal 80.0-100.0 [facility] Comment on above: Order Comment: Speci men Type: BLOOD SPECIMEN Ordering Facility: [facility] Address: [address] [place] [address] Performed By: #### 5 7021-8 #### [facility] CLIA [id number] [address] [place] [address] 83098 Monocytes (Bld) [#/Vol] 0.40 10*3/uL Normal <0.87 [facility] Comment on above: Order Comment: Speci men Type: BLOOD SPECIMEN Ordering Facility: [facility] Address: [address] [place] [address] Performed By: #### 5 7021-8 #### [facility] CLIA [id number] [address] [place] [address] 03650 Monocytes/100 WBC (Bld) 10.0 % Normal [facility] Comment on above: Order Comment: Speci men Type: BLOOD SPECIMEN Ordering Facility: [facility] Address: [address] [place] [address] Performed By: #### 5 7021-8 #### [facility] CLIA [id number] [address] [place] [address] 84710 Neutrophils (Bld) [#/Vol] 2.27 10*3/uL Normal 1.45-7.50 [facility] Comment on above: Order Comment: Speci men Type: BLOOD SPECIMEN Ordering Facility: [facility] Address: [address] [address] Performed By: #### 5 7021-8 #### [facility] CLIA [id number] [address] [place] [address] 30767 Neutrophils/100 WBC (Bld) 56.8 % Normal [facility] Comment on above: Order Comment: Speci men Type: BLOOD SPECIMEN Ordering Facility: [facility] Address: [address] [place] [address] Performed By: #### 5 7021-8 #### [facility] CLIA [id number] [address] [place] [address] 42645 Nucleated RBC (Bld) [#/Vol] 10*3/uL Normal <0.01 [facility] Comment on above: Order Comment: Speci men Type: BLOOD SPECIMEN Ordering Facility: [facility] Address: [address] [address] Performed By: #### 5 7021-8 #### [facility] CLIA [id number] [address] [place] [address] 61343 Nucleated RBC/100 WBC (Bld) [Ratio] 0.0 /100 WBC Normal [facility] Comment on above: Order Comment: Speci men Type: BLOOD SPECIMEN Ordering Facility: [facility] Address: [address] [place] [address] Performed By: #### 5 7021-8 #### [facility] CLIA [id number] [address] [place] [address] 55418 Platelet mean volume (Bld) [Entitic vol] 10.4 fL Normal 9.0-12.7 [facility] Comment on above: Order Comment: Speci men Type: BLOOD SPECIMEN Ordering Facility: [facility] Address: [address] [address] Performed By: #### 5 7021-8 #### [facility] CLIA [id number] [address] [place] [address] 58482 Platelets (Bld) [#/Vol] 125 10*3/uL Low 150-400 [facility] Comment on above: Order Comment: Speci men Type: BLOOD SPECIMEN Ordering Facility: [facility] Address: [address] Performed By: #### 5 7021-8 #### [facility] CLIA [id number] [address] [place] [address] 63810 RBC (Bld) [#/Vol] 4.41 10*6/uL Normal 4.20-6.00 [facility] Comment on above: Order Comment: Speci men Type: BLOOD SPECIMEN Ordering Facility: [facility] Address: [address] [address] Performed By: #### 5 7021-8 #### [facility] CLIA [id number] [address] [place] [address] 12422 WBC (Bld) [#/Vol] 3.99 10*3/uL Normal 3.70-11.00 [facility] Comment on above: Order Comment: Speci men Type: BLOOD SPECIMEN Ordering Facility: [facility] Address: [address] [address] Performed By: #### 5 7021-8 #### [facility] CLIA [id number] [address] [place] [address] 63333 Basophils (Bld) [#/Vol] 0.03 10*3/uL <0.11 k/uL [facility] Basophils/100 WBC (Bld) 0.8 % [facility] Differential cell count method Nom (Bld) Auto [facility] Eosinophils (Bld) [#/Vol] 0.19 10*3/uL <0.46 k/uL [facility] Eosinophils/100 WBC (Bld) 4.8 % [facility] Erythrocyte distribution width (RBC) [Ratio] 12.7 % 11.5 - 15.0 % [facility] Hematocrit (Bld) [Volume fraction] 40.3 % 39.0 - 51.0 % [facility] Hemoglobin (Bld) [Mass/Vol] 14.3 g/dL 13.0 - 17.0 g/dL [facility] Immature granulocytes (Bld) [#/Vol] <0.10 k/uL [facility] Immature granulocytes/100 WBC (Bld) 0.5 % [facility] Lymphocytes (Bld) [#/Vol] 1.08 10*3/uL 1.00 - 4.00 k/uL [facility] Lymphocytes/100 WBC (Bld) 27.1 % [facility] MCH (RBC) [Entitic mass] 32.4 pg 26.0 - 34.0 pg [facility] MCHC (RBC) [Mass/Vol] 35.5 g/dL 30.5 - 36.0 g/dL [facility] MCV (RBC) [Entitic vol] 91.4 fL 80.0 - 100.0 fL [facility] Monocytes (Bld) [#/Vol] 0.40 10*3/uL <0.87 k/uL [facility] Monocytes/100 WBC (Bld) 10.0 % [facility] Neutrophils (Bld) [#/Vol] 2.27 10*3/uL 1.45 - 7.50 k/uL [facility] Neutrophils/100 WBC (Bld) 56.8 % [facility] Nucleated RBC (Bld) [#/Vol] <0.01 k/uL [facility] Nucleated RBC/100 WBC (Bld) [Ratio] 0.0 /100 WBC [facility] Platelet mean volume (Bld) [Entitic vol] 10.4 fL 9.0 - 12.7 fL [facility] Platelets (Bld) [#/Vol] 125 10*3/uL Low 150 - 400 k/uL [facility] RBC (Bld) [#/Vol] 4.41 10*6/uL 4.20 - 6.0 0 m/uL [facility] WBC (Bld) [#/Vol] 3.99 10*3/uL 3.70 - 11. 00 k/uL [facility] CNOVon 05-04-2023 CNOV Office Visit (RADTSA ) -- JHONATHAN AGUILAR ([id number]) 1945 M Date Time Provider Department 05/04/23 8:45 AM LAB/PORT RADT [facility] During your visit today, we recorded the following information about you: Rosa Lau, RN 05/04/2023 8:56 AM Signed Jhonathan Aguilar presents in office today for: Lab Draw only . Ordering Provider: Kanu Ruiz M.D. Test (s) ordered: CBC Method for obtaining blood: Phlebotomy was performed, accessing right antecubital vein. Needle removed intact. Dressing secured. Patient denies discomfort, dizziness, light-headedness or weakness and left the department without assist. Rosa Lau RN Allergies As of Date: 05/04/2023 Noted Allergy Reaction CODEINE 04/05/2023 1 - Mental Status Change OXYCODONE 04/05/2023 14 - Other: See Comments Comments: Dizziness, syncope Date Reviewed: 04/05/2023 Reviewed by: Rosa Lau RN - Fully Assessed Reason for Visit: Phlebotomy [1172] Primary Visit Diagnosis:Malignant neoplasm of prostate (HCC) [C61] Order(s):CBC + DIFF [SQCBCDIF] Order #: [id number]. #:[id number] Prescriptions as of 05/04/2023 - amoxicillin-clavulanic acid (AUGMENTIN) 500-125 mg per tablet TAKE 1 TABLET (500 MG) BY MOUTH IN THE MORNING AND AT BEDTIME. - bicalutamide (CASODEX) 50 mg tablet Take 50 mg by mouth. - dicyclomine (BENTYL) 20 mg tablet Take 20 mg by mouth. - fluticasone (FLONASE) 50 mcg/actuation nasal spray Use in the nose. - meloxicam (MOBIC) 7.5 mg tablet TAKE ONE TABLET BY MOUTH TWICE A DAY WITH FOOD NEEDED FOR ARTHRITIS PAIN - Lactobac 42/Bifid 8/colost/FOS (PROBIOTIC PLUS COLOSTRUM ORAL) Take by mouth. - calcium carbonate/vitamin D3 (CALTRATE 600 + D ORAL) Take by mouth. Problem List As Of Date: 05/04/2023 (None) Visit Notes: >> Rosa Lau RN [facility] May 04, 2023 8:49 AM Status: Signed Jhonathan Aguilar presents in office today for: Lab Draw only . Ordering Provider: Kanu Ruiz M.D. Test (s) ordered: CBC Method for obtaining blood: Phlebotomy was performed, accessing right antecubital vein. Needle removed intact. Dressing secured. Patient denies discomfort, dizziness, light-headedness or weakness and left the department without assist. 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 Prostate cancer (C61), 2019 NCCN Risk Group: High Risk Group Clinical State: Localized Cancer - New Diagnosis COURSE: definitive Current dose: 720 cGy in 4 fx Planned dose: 4500 cGy in 25 fx SUBJECTIVE: Doing well no new problems or concerns. PHYSICAL EXAM: KPS: 100 General Appearance: Alert and oriented. No acute distress. IMAGING/LAB RESULTS: None TOXICITY ASSESSMENT (CTC v4.0): Fatigue:grade 0 - No symptoms Radiation Dermatitis: grade 0 - No symptoms Diarrhea:grade 0 - No symptoms Proctitis: grade 0 - No symptoms Urinary frequency: grade 0 - No symptoms Dysuria: grade 0 - No symptoms Urinary incontinence: grade 0 (No symptoms) Urinary retention: grade 0 - No symptoms Treatment chart checked: Yes Patient treatment site reviewed and verified:Yes Port films reviewed and current:Yes Medications started: None ASSESSMENT/PLAN: Clinically stable. Toxicity within expected parameters. Continue radiation treatment as planned. Jennifer Ruiz MD Allergies As of Date: 05/01/2023 Noted Allergy Reaction CODEINE 04/05/2023 1 - Mental Status Change OXYCODONE 04/05/2023 14 - Other: See Comments Comments: Dizziness, syncope Date Reviewed: 04/05/2023 Reviewed by: Rosa Lau RN - Fully Assessed Reason for Visit: Radiotherapy On-treatment Visit [1722] Primary Visit Diagnosis:Malignant neoplasm of prostate (HCC) [C61] Prescriptions as of 05/01/2023 - amoxicillin-clavulanic acid (AUGMENTIN) 500-125 mg per tablet TAKE 1 TABLET (500 MG) BY MOUTH IN THE MORNING AND AT BEDTIME. - bicalutamide (CASODEX) 50 mg tablet Take 50 mg by mouth. - dicyclomine (BENTYL) 20 mg tablet Take 20 mg by mouth. - fluticasone (FLONASE) 50 mcg/actuation nasal spray Use in the nose. - meloxicam (MOBIC) 7.5 mg tablet TAKE ONE TABLET BY MOUTH TWICE A DAY WITH FOOD NEEDED FOR ARTHRITIS PAIN - Lactobac 42/Bifid 8/colost/FOS (PROBIOTIC PLUS COLOSTRUM ORAL) Take by mouth. - calcium carbonate/vitamin D3 (CALTRATE 600 + D ORAL) Take by mouth. Problem List As Of Date: 05/01/2023 (None) Encounter Status:Closed by Jennifer RUIZ on 05/01/23 [facility] CNOVon 04-26-2023 CNOV Office Visit (RADTSA ) -- JHONATHAN AGUILAR ([id number]) 1945 M Date Time Provider Department 04/26/23 9:00 AM Jennifer RUIZ RADTSA During your visit today, we recorded the following information about you: Jennifer Ruiz MD 05/01/2023 9:27 AM Signed Radiation Oncology - On Treatment Review (OTR) Note PATIENT NAME: Jhonathan Manbeck PATIENT DIAGNOSIS: Prostate adenocarcinoma, initial PSA 26.2, biopsy Cannelton score 4 + 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 Prostate cancer (C61), 2019 NCCN Risk Group: High Risk Group Clinical State: Localized Cancer - New Diagnosis COURSE: definitive Current dose: 180 cGy in 1 fx Planned dose: 4500 cGy in 25 fx SUBJECTIVE: Here to start radiation, doing well. PHYSICAL EXAM: KPS: 100 General Appearance: Alert and oriented. No acute distress. IMAGING/LAB RESULTS: None TOXICITY ASSESSMENT (CTC v4.0): Fatigue:grade 0 - No symptoms Radiation Dermatitis: grade 0 - No symptoms Diarrhea:grade 0 - No symptoms Proctitis: grade 0 - No symptoms Urinary frequency: grade 0 - No symptoms Dysuria: grade 0 - No symptoms Urinary incontinence: grade 0 (No symptoms) Urinary retention: grade 0 - No symptoms Treatment chart checked: Yes Patient treatment site reviewed and verified:Yes Port films reviewed and current:Yes Medications started: None ASSESSMENT/PLAN: Patient starting radiation today. Plan of care and expectations again reviewed. Plan, MU calculations and qa report reviewed. Initial imaging including cone beam ct and verification reviewed and approved. First treatment given. Continue radiation as prescribed. Jennifer Ruiz MD Allergies As of Date: 04/26/2023 Noted Allergy Reaction CODEINE 04/05/2023 1 - Mental Status Change OXYCODONE 04/05/2023 14 - Other: See Comments Comments: Dizziness, syncope Date Reviewed: 04/05/2023 Reviewed by: Rosa Lau RN - Fully Assessed Reason for Visit: Radiotherapy On-treatment Visit [1722] Primary Visit Diagnosis:Malignant neoplasm of prostate (HCC) [C61] Prescriptions as of 05/01/2023 - amoxicillin-clavulanic acid (AUGMENTIN) 500-125 mg per tablet TAKE 1 TABLET (500 MG) BY MOUTH IN THE MORNING AND AT BEDTIME. - bicalutamide (CASODEX) 50 mg tablet Take 50 mg by mouth. - dicyclomine (BENTYL) 20 mg tablet Take 20 mg by mouth. - fluticasone (FLONASE) 50 mcg/actuation nasal spray Use in the nose. - meloxicam (MOBIC) 7.5 mg tablet TAKE ONE TABLET BY MOUTH TWICE A DAY WITH FOOD NEEDED FOR ARTHRITIS PAIN - Lactobac 42/Bifid 8/colost/FOS (PROBIOTIC PLUS COLOSTRUM ORAL) Take by mouth. - calcium carbonate/vitamin D3 (CALTRATE 600 + D ORAL) Take by mouth. Problem List As Of Date: 04/26/2023 (None) Encounter Status:Closed by Jennifer RUIZ on 05[facility]01[facility] Telephone (RADTSA) -- JHONATHAN AGUILAR ([id number]) 1945 M Date Time Provider Department 04/25/23 Jennifer RUIZ [email or web address] During your visit today, we recorded the following information about you: Dara Russell LPN 04/25/2023 12:52 PM Signed CBC order, during second week of radiation therapy, is pending your approval. Dara Russell LPN Allergies As of Date: 04/25/2023 Noted Allergy Reaction CODEINE 04/05/2023 1 - Mental Status Change OXYCODONE 04/05/2023 14 - Other: See Comments Comments: Dizziness, syncope Date Reviewed: 04/05/2023 Reviewed by: Rosa Lau, RN - Fully Assessed Reason for Visit: Orders [681] Primary Visit Diagnosis:Malignant neoplasm of prostate (HCC) [C61] Order(s):CBC + DIFF [[id number]] Order #: [id number] FUTURE Prescriptions as of 04/25/2023 - amoxicillin-clavulanic acid (AUGMENTIN) 500-125 mg per tablet TAKE 1 TABLET (500 MG) BY MOUTH IN THE MORNING AND AT BEDTIME. - bicalutamide (CASODEX) 50 mg tablet Take 50 mg by mouth. - dicyclomine (BENTYL) 20 mg tablet Take 20 mg by mouth. - fluticasone (FLONASE) 50 mcg/actuation nasal spray Use in the nose. - meloxicam (MOBIC) 7.5 mg tablet TAKE ONE TABLET BY MOUTH TWICE A DAY WITH FOOD NEEDED FOR ARTHRITIS PAIN - Lactobac 42/Bifid 8/colost/FOS (PROBIOTIC PLUS COLOSTRUM ORAL) Take by mouth. - calcium carbonate/vitamin D3 (CALTRATE 600 + D ORAL) Take by mouth. Problem List As Of Date: 04/25/2023 (None) Encounter Status:Closed by Jennifer RUIZ on 04/25/23 [facility] CNOVon 04-18-2023 CNOV Office Visit (RADTSA ) -- JHONATHAN AGUILAR ([id number]) 1945 M Date Time Provider Department 04/18/23 3:00 PM Jennifer RUIZ RADTSA During your visit today, we recorded the following information about you: Allergies As of Date: 04/18/2023 Noted Allergy Reaction CODEINE 04/05/2023 1 - Mental Status Change OXYCODONE 04/05/2023 14 - Other: See Comments Comments: Dizziness, syncope Date Reviewed: 04/05/2023 Reviewed by: Rosa Lau RN - Fully Assessed Reason for Visit: Simulation Request Form [2717] Primary Visit Diagnosis:Malignant neoplasm of prostate (HCC) [C61] Order(s):RADIATION TREATMENT PER RADIATION ONCOLOGIST PLAN [[id number]] Order #: [id number]: 1 CT SIM PLANNING RADIATION ONCOLOGY [[id number]] Order #: [id number] PT ED CANCER [[id number]] Order #: [id number]: 1 Prescriptions as of 04/19/2023 - amoxicillin-clavulanic acid (AUGMENTIN) 500-125 mg per tablet TAKE 1 TABLET (500 MG) BY MOUTH IN THE MORNING AND AT BEDTIME. - bicalutamide (CASODEX) 50 mg tablet Take 50 mg by mouth. - dicyclomine (BENTYL) 20 mg tablet Take 20 mg by mouth. - fluticasone (FLONASE) 50 mcg/actuation nasal spray Use in the nose. - meloxicam (MOBIC) 7.5 mg tablet TAKE ONE TABLET BY MOUTH TWICE A DAY WITH FOOD NEEDED FOR ARTHRITIS PAIN - Lactobac 42/Bifid 8/colost/FOS (PROBIOTIC PLUS COLOSTRUM ORAL) Take by mouth. - calcium carbonate/vitamin D3 (CALTRATE 600 + D ORAL) Take by mouth. Problem List As Of Date: 04/18/2023 (None) Encounter Status:Closed by Jennifer RUIZ on 04/19/23 [facility] Follow-Upon 04-17-2023 Follow-Up [id number] Daniel Aguilar 1945 M Date Provider Department Center 04/17/2023 [address] 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 Consultation Noteon 04-07-20 Consultation Note [id number]:127 Normal [facility] CNOVon 04-05-2023 CNOV Office Visit (RADTSA ) -- JHONATHAN AGUILAR ([id number]) 1945 M Date Time Provider Department 04/05/23 2:00 PM Jennifer RUIZ During your visit today, we recorded the following information about you: Temperature Pulse Respiration Blood pressure 97.5 degrees 78/minute 18/minute 145/89 Weight Height 94.8 kg 1.81 m Jennifer Ruiz Kanu, MD 04/05/2023 3:51 PM Signed Radiation Oncology - Prostate Cancer New Patient/Consult Note PATIENT NAME: Jhonathan Aguilar PATIENT REQUESTING PROVIDER: Dr. Westfall DIAGNOSIS: 77 year old male with prostate adenocarcinoma, 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 HPI: 77 year old male with prostate adenocarcinoma who presents for an opinion regarding the role of radiation therapy in the management of the patient's disease. Final recommendations will be communicated back to the requesting physician by way of the shared medical record, or letter to requesting physician via US mail. The patient was diagnosed with prostate cancer and comes in today to discuss treatment options. Patient presented with an elevated PSA of 26.2. Previous PSA in 2014 1.11. Clinical exam revealed per Dr. Westfall revealed rockhard prostate, nodule left greater than right. Prostate biopsy on March 07, 2023 revealed: 42 cm? gland. Adenocarcinoma Ev 8 (4+4) from the left base left lateral mid left lateral apical and right lateral base cores, in addition Cannelton 74+3 from right base right mid right apical right lateral mid and left mid cores Areas of cribriform histology described Total # of positive biopsy cores: 9 Total # of biopsy cores sampled: 12 Greatest % cancer in any single core: Greater than 50% Staging Studies: Bone Scan Results: 03/24/2023: No evidence of metastatic disease CAT Scan Results: 03/24/2023 CT abdomen and pelvis: No evidence of metastatic disease in the abdomen or pelvis. Previous Treatment for Prostate Cancer: None Genomic Testing: None The patient reports the following pertinent history: Urinary frequency (D/N): 4-6/1-2 Dysuria: No Incontinence: 1- No pads Hematuria: No - Total AUA Score: 13 Bowel Movement Frequency: 1/day Bowel Movement Quality: Normal Blood per Rectum: No Androgen Deprivation: Yes started Lupron 03/27/2023 Prior Radiation Therapy, Collagen Vascular Disease, or Inflammatory Bowel Disease: No Currently on Anticoagulation: No History of Hip Replacement: Yes History of Prior TURP: No ALLERGIES Allergen Reactions Codeine Mental Status Change Oxycodone Other: See Comments Dizziness, syncope bicalutamide (CASODEX) 50 mg tablet Take 50 mg by mouth. dicyclomine (BENTYL) 20 mg tablet Take 20 mg by mouth. fluticasone (FLONASE) 50 mcg/actuation nasal spray Use in the nose. meloxicam (MOBIC) 7.5 mg tablet TAKE ONE TABLET BY MOUTH TWICE A DAY WITH FOOD NEEDED FOR ARTHRITIS PAIN Lactobac 42/Bifid 8/colost/FOS (PROBIOTIC PLUS COLOSTRUM ORAL) Take by mouth. amoxicillin-clavulanic acid (AUGMENTIN) 500-125 mg per tablet TAKE 1 TABLET (500 MG) BY MOUTH IN THE MORNING AND AT BEDTIME. No past medical history on file. No past surgical history on file. No family history on file. Social History Tobacco Use Smoking status: Former Packs/day: 0.50 Years: 10.00 Total pack years: 5.00 Types: Cigarettes, Cigars Start date: 1965 Smokeless tobacco: Current Substance Use Topics Alcohol use: Not Currently Drug use: Never REVIEW OF SYSTEMS: GENERAL: feeling well without fatigue, no recent change in weight NECK: denies swelling or pain in neck RESPIRATORY: no cough, no wheezing or shortness of breath CARDIOVASCULAR: no chest pain, no palpitations MUSCULOSKELETAL: denies any painful or swollen joints, no muscle aches SKIN: no rash NEURO: no numbness or paresthesias and no weakness of the extremities As noted in HPI PHYSICAL EXAM: VS: Resp 18 Ht 181 cm (5' 11.25 ) Wt 94.8 kg (209 lb) BMI 28.95 kg/m? KARNOFSKY PERFORMANCE STATUS: 100 General Appearance: Alert and oriented. No acute distress. HEENT: NCAT. Sclera anicteric. PERRL. EOMI. Neck: Normal ROM. No palpable cervical or supraclavicular adenopathy. Chest: No respiratory distress. Lungs clear to auscultation bilaterally. Heart: Regular rate and rhythm. Abdomen: Soft. Nontender. Nondistended. Musculoskeletal: No edema. Normal ROM in extremities. No bone or spine tenderness. Neuro: Speech fluent. Gait normal. No focal deficits. Skin: No rashes noted Lymphatics: No palpable lymphadenopathy. GENITOURINARY: Deferred exam RECTAL: Deferred exam RADIOLOGY/LABORATORY DATA: see HPI ASSESSMENT/PLAN: Prostate adenocarcinoma, initial PSA 26.2, biopsy Ev score 4 + 4 = 8 (grade group 4), clinical stag (more content not included)... Normal [facility] IntraOperative Documentson 0 03-30-2023 IntraOperative Documents [id number]:127 Normal [facility] Lab Reportson 03-28-2023 Lab Reports [id number]:127 Normal [facility] RAD - Pet Scan Reporton 03-18 RAD - Pet Scan Report [id number]:127 Normal [facility] Ambulatory Visit Summaryon 0 03-27-2023 Ambulatory Visit Summary JHONATHAN AGUILAR :1945 Visit Date:03/27/2023 Ambulatory Visit Instructions Your Diagnosis Prostate cancer Family history of prostate cancer in father Your Care Team Attending Physician - MALOU MCGREGOR, German Colmenares Primary Care Physician - Marla Fortune This Is Your Medications List bicalutamide (bicalutamide 50 mg Tab) Contact prescribing physician if questions or concerns Misc Prescription (Handicap Placard) acetaminophen (Tylenol) bifidobacterium-lactobacil jb (Probiotic + Colostrum) dicyclomine (dicyclomine 20 mg Tab) fluticasone nasal (Flonase 0.05 mg/inh [place]) meloxicam (meloxicam 7.5 mg Tab) Procedures Performed Transrectal needle biopsy of prostate (03/07/2023), Biopsy (02/16/2023), Cataract, Cyst, Hip arthroplasty, Surgery. Discharge Vitals Heart Rate (Peripheral) 90 Respiratory Rate 16 Blood Pressure 138/88 Height 178 cm Height 70 in Weight 100 kg Weight 220 lb BMI 31.56 What to do next Scheduled Follow-Up Appointments Monday 8:00 AM EDT Where: [facility] Normal [facility] Patient Educationon 03-27-20 Patient Education Oncology Hormone Suppression Therapy for Prostate Cancer Hormone suppression therapy is a treatment for prostate cancer that can help slow the growth of cancer cells in the prostate gland. It is also called androgen deprivation therapy (ADT) or androgen suppression therapy. Hormone suppression therapy targets male sex hormones (androgens) in the body that help cancer cells grow. Hormone suppression therapy alone will not cure prostate cancer, but it can slow the growth of cancer cells and may shrink tumors over time. Your health care provider can help you find the best treatment that fits your lifestyle. Hormone suppression therapy may be used in the following cases: ? When prostate cancer has spread too far to other places in the body and cannot be cured by surgery or radiation. ? When a person has health problems that prevent the use of surgery or radiation. ? Before radiation to help shrink the size of the cancer and make the radiation treatment more effective. ? If the prostate cancer remains or comes back following treatment with surgery or radiation. What are the types of hormone suppression therapy? Orchiectomy Orchiectomy, also called surgical castration, is a surgery to remove one or both testicles. The testicles make the two main androgens?testosterone and dihydrotestosterone (DHT). This surgery reduces the levels of testosterone in the blood, leading to decreased androgen production. Medicine therapy Medicine therapy, also called medical or chemical castration, involves taking medicines to keep your body from making or using androgens. Medicines can do this in one of three ways: 1. Reducing androgen production by the testicles. ? Luteinizing hormone-releasing hormone (LHRH) agonists. These medicines are injected or implanted under your skin to lower the amount of androgens that your testicles make. Depending on the medicine, they can be given monthly or up to every 3 to 6 months. If you take these medicines, you may also be prescribed other medicines to help with side effects. ? LHRH antagonists. These medicines also work to lower the amount of androgens made in the testicles, but they work faster than LHRH agonist medicines and have less severe side effects. They are given as a monthly injection under the skin, and they are used when prostate cancer is in an advanced stage. ? Estrogens. These medicines are female hormones that help to reduce androgen production by the testicles. Estrogens are not used as commonly as other types of hormone suppression therapy due to their side effects. However, they may be used if other treatments do not work. 2. Blocking androgen attachment throughout the body. ? Anti-androgen medicines, also called androgen receptor antagonists, block areas on the body where androgens attach. These are pills that are usually used in combination with other types of hormone suppression therapy, like orchiectomy and other medicines. 3. Blocking androgen production throughout the body. ? Androgen synthesis inhibitor medicines. These medicines help to stop other areas of the body from making androgens. They are taken as pills. They may be used if the prostate cancer is advanced and has not gotten better with surgery or other medicines. A steroid medicine may be given with this type of medicine to help with side effects. What are the risks? Hormone suppression therapy may cause side effects, including: ? Hot flashes. ? Diarrhea and nausea. ? Itching. ? Sexual side effects, such as: ? Decrease or lack of sexual desire. ? Decrease in size of the penis or testicles. ? Inability to get an erection (erectile dysfunction, or impotence). ? Breast tenderness or increase in breast size. ? Fatigue. ? Weight gain. ? Anemia. ? Thinning of the bones (osteoporosis) and loss of muscle mass. ? Depression, mood swings, and trouble with thinking or focusing. Hormone suppression therapy may also increase your risk of high blood pressure, increased cholesterol levels, stroke, heart attack, or diabetes. What are the benefits? One of the main benefits of hormone suppression therapy is having additional treatment options. You may have only one type of treatment, or two or more types at the same time. Treatments may be combined to: ? Help with side effects. ? Treat advanced cancer. Where to find more information ? [place] [employer]: www.cancer.org ? National Cancer [place]: www.cancer.gov Contact a health care provider if: ? You have pain or side effects that do not get better with treatment. ? You have trouble urinating. ? You have new side effects that do not go away. Get help right away if: ? You have severe chest pain. ? You have trouble breathing. ? You have an irregular heartbeat. ? You have numbness or paralysis in the lower half of your body. ? You are confused. ? You have trouble talking or understanding speech. These symptoms may be an emergenc (more content not included)... Normal [facility] Urology Office/Clinic Noteon 03-27-2023 Urology Office/Clinic Note Chief Complaint 2 week f/u for prostate cancer HPI Staff 2 week f/u with CT and bone scan. Previous dx of prostate cancer and family hx of prostate cancer (father). Pt did not start the Casodex due to it not being sent to his pharmacy. Dysuria: no Incomplete bladder emptying: no Hematuria: no Frequency: no Urgency: no Nocturia: 2x Stream: no straining or intermittency Leaking: no Post void dripping: no Wearing pads/ Depends: no Urge incontinence: no Stress incontinence: no Incontinence without Sensory Awareness: no Abdominal pain: none Flank pain: none Sexual complaints: no History of Present Illness Tests reviewed: reviewed UA, CT scan, NM bone scan I have reviewed the previous health record information and history for this patient from Dr. Westfall. I have reviewed and verified the staff HPI to be accurate for this encounter. There have been no associated fever, chills, flank pain, or blood in the urine. Denies any urinary infections since last encounter. Review of Systems PHQ Score Initial Depression Screen Score: 0 ROS - Provider Constitutional: denies weight loss, denies hot flashes. Eyes: denies eye problems. Gastrointestinal: denies nausea, denies vomiting. Cardiovascular: denies chest pain or angina. Integumentary: no dryness Musculoskeletal: denies musculoskeletal symptoms. ENMT: denies otolaryngeal symptoms. Respiratory: no shortness of breath. Heme/Lymph: denies easy bleeding tendency, denies easy bruising tendency. Psychiatric: no confusion, no anxiety. Genitourinary: See HPI. Physical Exam Vitals & Measurements HR: 90(Peripheral) RR: 16 BP: 138/88 HT: 70 in HT: 178 cm WT: 100 kg WT: 220 lb BMI: 31.56 General Appearance: alert, no distress, well nourished, well developed male. Genitourinary: normal scrotum, normal testes, normal urethra, normal epididymis, normal vas deferens/spermatic cord. Flank Pain: none. Bladder: nonpalpable. Assessment/Plan 1. Prostate cancer (C61: Malignant neoplasm of prostate) PSA: 15 - 1.11 02/10/23 - 26.2 JEFERSON 03/01/23 - Abnormal prostate, estimated weight 40 gms, yes hard nodule observed. rock hard prostate L >>R [1]. TRUS/bx 03/07/23 - Cannelton 8 (4+4) x 4 cores, highest % of core involvement 85%. [place] 7 (4+3) x 5 cores, highest % of core involvement 66%. SADA x 3 cores. All cores taken were abnormal. CT AP w/wo con 03/24/23 - negative for metastatic disease in abd/pelvis NM Bone scan 03/24/23 - negative for metastatic disease to the bones. Pt was to start Casodex 50 mg qd per last visit but pt's states the pharmacy never received order. New script sent today. Discussed the medication side effects, and the patient will monitor closely for these, as well as for symptom improvement. If severe side effects occur, the medication should be stopped and the office notified. Discussed combination therapies to be preferable treatment option. Lupron 45 mgIM injection given today with no complications. Right glute. Discussed Lupron side effects (hot flashes, decreased libido, difficulty achieving/maintaining erection, bone thinning). -Begin Casodex 50 mg qd. -Referral to Dr. Ruiz at [facility] for EBRT 2. Family history of prostate cancer in father (Z80.42: Family history of malignant neoplasm of prostate) Pt's father had prostate/colon cancer, treated with radiation seeds. [1] [1] Follow-up With When Contact Information MALOU MCGREGOR, German Colmenares, [facility] [address] [place] [address]- [phone] Additional Instructions: referral to rad onc Patient Education Hormone Suppression Therapy for Prostate Cancer Brachytherapy for Prostate Cancer Denisha Trujillo, personally scribed for Dr. Westfall on 03/27/2023 10:40:21. . Documentation recorded by the scribeDenisha, accurately reflects the services(s) I performed and decisions made by me. Authenticated by Dr. Westfall on 03/27/2023 10:43:10. 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 Medications dicyclomine 20 mg Tab, 20 mg= 1 tab(s), Oral, QID, PRN, 3 refills Flonase 0.05 mg/inh [place], 2 spray(s), Nasal, Daily Handicap Placard, See Instructions meloxicam 7.5 mg Tab, 7.5 mg= 1 tab(s), Oral, BID, PRN, 11 refills Probiotic + Colostrum, Oral, Daily Tylenol, Oral Allergies (more content not included)... Normal [facility] Comment on above: Result Comment: Elec tronically Signed By: Ashlie Naik\Date and Time Signed: 03/27/23 11:17 EDT RAD - CT Reporton 03-25-2023 RAD - CT Report [id number]:[id number] Normal [facility] Ambulatory Visit Summaryon 0 03-15-2023 Ambulatory Visit Summary JHONATHAN AGUILAR :1945 Visit Date:03/15/2023 Ambulatory Visit Instructions Your Diagnosis Prostate cancer Family history of prostate cancer in father Tests Performed CT Abdomen/Pelvis w/ + w/o Contrast -- Results Pending -- NM Bone Scan Whole Body -- Results Pending -- Please visit your patient portal for your results or contact your primary care physician. Your Care Team Attending Physician - MALOU MCGREGOR, German Colmenares Primary Care Physician - Marla Fortune This Is Your Medications List fluticasone nasal (Flonase) Contact prescribing physician if questions or concerns Misc Prescription (Handicap Placard) acetaminophen (Tylenol) amoxicillin-clavulanate (Augmentin 500 mg-125 mg Tab) bifidobacterium-lactobacil jb (Probiotic + Colostrum) dicyclomine (dicyclomine 20 mg Tab) fluticasone nasal (Flonase 0.05 mg/inh [place]) meloxicam (meloxicam 7.5 mg Tab) Procedures Performed Transrectal needle biopsy of prostate (03/07/2023), Biopsy (02/16/2023), Cataract, Cyst, Hip arthroplasty, Surgery. Discharge Vitals Heart Rate (Peripheral) 78 Respiratory Rate 16 Blood Pressure 132/70 Height 178 cm Height 70 in Weight 100 kg Weight 220 lb BMI 31.56 What to do next Scheduled Follow-Up Appointments Monday 8:00 AM EDT Where: [facility] Ambulatory Visit Summary JHONATHAN AGUILAR :1945 Visit Date:03/15/2023 Ambulatory Visit Instructions Your Diagnosis Prostate cancer Family history of prostate cancer in father Tests Performed CT Abdomen/Pelvis w/ + w/o Contrast -- Results Pending -- NM Bone Scan Whole Body -- Results Pending -- Please visit your patient portal for your results or contact your primary care physician. Your Care Team Attending Physician - MALOU MCGREGOR, German Colmenares Primary Care Physician - Marla Fortune This Is Your Medications List fluticasone nasal (Flonase) Contact prescribing physician if questions or concerns Misc Prescription (Handicap Placard) acetaminophen (Tylenol) amoxicillin-clavulanate (Augmentin 500 mg-125 mg Tab) bifidobacterium-lactobacil jb (Probiotic + Colostrum) dicyclomine (dicyclomine 20 mg Tab) fluticasone nasal (Flonase 0.05 mg/inh [place]) meloxicam (meloxicam 7.5 mg Tab) Procedures Performed Transrectal needle biopsy of prostate (03/07/2023), Biopsy (02/16/2023), Cataract, Cyst, Hip arthroplasty, Surgery. Discharge Vitals Heart Rate (Peripheral) 78 Respiratory Rate 16 Blood Pressure 132/70 Height 178 cm Height 70 in Weight 100 kg Weight 220 lb BMI 31.56 What to do next Scheduled Follow-Up Appointments Monday 8:00 AM EDT Where: [facility] Ambulatory Visit Summary JHONATHAN AGUILAR :1945 Visit Date:03/15/2023 Ambulatory Visit Instructions Your Diagnosis Fluid level behind tympanic membrane of both ears Seasonal allergies BMI 29.0-29.9,adult Non-smoker Your Care Team Attending Physician - Marla Fortune Primary Care Physician - Marla Fortune This Is Your Medications List Misc Prescription (Handicap Placard) acetaminophen (Tylenol) amoxicillin-clavulanate (Augmentin 500 mg-125 mg Tab) bifidobacterium-lactobacil jb (Probiotic + Colostrum) dicyclomine (dicyclomine 20 mg Tab) fluticasone nasal (Flonase 0.05 mg/inh [place]) meloxicam (meloxicam 7.5 mg Tab) Procedures Performed Biopsy (02/16/2023), Cataract, Cyst, Hip arthroplasty, Surgery. Discharge Vitals Heart Rate (Peripheral) 72 Respiratory Rate 18 Blood Pressure 146/80 Height 180.5 cm Height 71 in Weight 96.5 kg Weight 212.3 lb BMI 29.62 What to do next Scheduled Follow-Up Appointments Monday 11:15 AM EDT With: MALOU MCGREGOR, German Colmenares Where: [facility] [id number] \.br\ Medications\.b r\ What How Much When Why Instructions\. br\ New fluticasone nasal (Flonase 0.05 mg/ inh [place]) 2 Sprays Nasal Inhalation Every day Fluid level behind tympanic membrane of both ears Seasonal allergies BMI 29.0-29.9,adul t Non-smoker each nostril Pickup at [facility]\.br\ Unchanged acetaminophen (Tylenol) By Mouth\.br\ Unchanged amoxicillin-cl avulanate (Augmentin 500 mg-125 mg Tab) 500 Milligram By Mouth Every 12 hours\.br\ Unchanged bifidobacteriu m-lactobacillu s (Probiotic + Colostrum) By Mouth Every day\.br\ Unchanged dicyclomine (dicyclomine 20 mg Tab) 1 Tablets By Mouth 4 times a day as needed for Other (see comment) for IBS \.br\ Unchanged meloxicam (meloxicam 7.5 mg Tab) 1 Tablets By Mouth 2 times a day as needed for Arthritis take with food \.br\ Unchanged Misc Prescription (Handicap Placard) See instructions Expires in 5 years \.br\ Pharmacy Information\.b r\ [facility]: [address], [place] [id number] [phone]\.br\ Allergies\.br\ CeleBREX (Unknown)\.br\ Orudis (Unknown)\.br\ codeine (Unknown)\.br\ oxyCODONE (Lightheaded)\ .br\ Problems\.br\ Ongoing - Any problem that you are currently receiving treatment for.\.br\ BMI 28.0-28.9,adul t\.br\ Family history of prostate cancer\.br\ Fluid level behind tympanic membrane of both ears\.br\ Former smoker\.br\ Hip pain\.br\ Inflammatory polyarthropath y\.br\ Other mechanical complication of internal left hip prosthesis, initial encounter\.br\ Over weight\.br\ Seasonal allergies\.br\ Unilateral primary osteoarthritis , left hip\.br\ Historical - Any problem that you are no longer receiving treatment for.\.br\ Arthritis\.br\ Arthritis\.br\ GERD - Gastro-esophag eal reflux disease\.br\ IBS - Irritable bowel syndrome\.br\ Sciatica\.br\ \.br\ [facility] 03-15-2023 Consent [id number]:[id number] Normal [facility] Family Medicine Office/Clini c Noteon 03-15-2023 Family Medicine Office/Clinic Note Chief Complaint Trouble earing HPI Staff Jhonathan is a 77 year old male presenting with ear problems Fevers: no Sinus congestion: no Sneezing: no Ear pain: no Ear itching, popping, fullness, ringing, muffled hearing: Ear drainage: no Swollen nodes: no Sore throat: no Ear pain worse with chewing: no Itching: no Difficulty hearing: yes, states it sounds like he has a box over his head. Questions/Concerns: none History of Present Illness pt presents today with c/o difficulty hearing everything is muffled. and at night he said it sounds like the ocean in his ears Review of Systems PHQ Score Initial Depression Screen Score: 0 ROS - Provider Constitutional: no fever, no chills, no sweats, no fatigue Respiratory: no shortness of breath, no cough, no orthopnea, no wheezing. Cardiovascular: no chest pain, no palpitations, no edema. Neurologic: no headache, no dizziness, no numbness, no weakness. ENT: hearing is muffled, hearing fluid moving at night Physical Exam Vitals & Measurements HR: 72(Peripheral) RR: 18 BP: 146/80 SpO2: 96% HT: 71 in HT: 180.5 cm WT: 96.5 kg WT: 212.3 lb BMI: 29.62 General: alert, no acute distress ENMT: oral mucosa moist, no pharyngeal erythema or exudate, KATIE TM full of clear fluid Cardiovascular: regular rate and rhythm, normal peripheral perfusion Respiratory: Lungs CTA, respirations non labored Extremities: no deformity, no trauma Neurological: oriented x 4, LOC appropriate for age, CN II-XII intact, motor strength equal & normal bilaterally, speech normal Assessment/Plan 1. Fluid level behind tympanic membrane of both ears (H65.93: Unspecified nonsuppurative otitis media, bilateral) pt presents today with difficulty hearing for about 1 week. and at night he can hear fluid (sounds like the ocean). KATIE TM full of clear fluid. No redness or drainage noted. Ordered: fluticasone nasal, 2 spray(s), Nasal, Daily, 16 gram, Refill(s) 0, each nostril, [facility], 180.5, cm, 03/15/23 10:05:00 EDT, Height/Length Dosing, 96.5, kg, 03/15/23 10:05:00 EDT, Weight Dosing triamcinolone, 60 mg = 1.5 mL, Injection, IntraMuscular, Once, Stop date 03/15/23 10:27:00 EDT, Routine, Start date 03/15/23 10:27:00 EDT, 03/15/23 10:27:00 EDT 2. Seasonal allergies (J30.2: Other seasonal allergic rhinitis) will give kenalog injection in office today and pt to start taking OTC allergy medicaiton. will also call in flonse to help relieve ear pressure Ordered: fluticasone nasal, 2 spray(s), Nasal, Daily, 16 gram, Refill(s) 0, each nostril, [facility], 180.5, cm, 03/15/23 10:05:00 EDT, Height/Length Dosing, 96.5, kg, 03/15/23 10:05:00 EDT, Weight Dosing triamcinolone, 60 mg = 1.5 mL, Injection, IntraMuscular, Once, Stop date 03/15/23 10:27:00 EDT, Routine, Start date 03/15/23 10:27:00 EDT, 03/15/23 10:27:00 EDT 3. BMI 29.0-29.9,adult (Z68.29: Body mass index [BMI] 29.0-29.9, adult) BMI eduction complete Ordered: fluticasone nasal, 2 spray(s), Nasal, Daily, 16 gram, Refill(s) 0, each nostril, [facility], 180.5, cm, 03/15/23 10:05:00 EDT, Height/Length Dosing, 96.5, kg, 03/15/23 10:05:00 EDT, Weight Dosing triamcinolone, 60 mg = 1.5 mL, Injection, IntraMuscular, Once, Stop date 03/15/23 10:27:00 EDT, Routine, Start date 03/15/23 10:27:00 EDT, 03/15/23 10:27:00 EDT 4. Non-smoker (Z78.9: Other specified health status) continue not smoking Ordered: fluticasone nasal, 2 spray(s), Nasal, Daily, 16 gram, Refill(s) 0, each nostril, [facility], 180.5, cm, 03/15/23 10:05:00 EDT, Height/Length Dosing, 96.5, kg, 03/15/23 10:05:00 EDT, Weight Dosing triamcinolone, 60 mg = 1.5 mL, Injection, IntraMuscular, Once, Stop date 03/15/23 10:27:00 EDT, Routine, Start date 03/15/23 10:27:00 EDT, 03/15/23 10:27:00 EDT Follow-up No qualifying data available Problem List/Past Medical History Ongoing BMI 28.0-28.9,adult Family history of prostate cancer Fluid level behind tympanic membrane of both ears Former smoker Hip pain Inflammatory 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 Medications Augmentin 500 mg-125 mg Tab, 500 mg, Oral, q12hr dicyclomine 20 mg Tab, 20 mg= 1 tab(s), Oral, QID, PRN, 3 refills Flonase 0.05 mg/inh [place], 2 spray(s), Nasal, Daily Handicap Placard, See Instructions meloxicam 7.5 mg Tab, 7.5 mg= 1 tab(s), Oral, BID, PRN, 11 refills Probiotic + Colostrum, Oral, Daily Tylenol, Oral Allergies CeleBREX (Unknown) Orudis (Unknown) codeine (Unknown) oxyCODONE (Lightheaded) Social History Alcohol - Low Risk, 12/02/2022 Other Substance Abuse - Denies Substance Abuse, 12/03/19 (more content not included)... Normal [facility] Comment on above: Result Comment: Elec tronically Signed By: Marla Fortune\.br\Date and Time Signed: 03/15/23 10:38 EDT Patient Educationon 03-15-20 Patient Education Oncology Hormone Suppression Therapy for Prostate Cancer Hormone suppression therapy is a treatment for prostate cancer that can help slow the growth of cancer cells in the prostate gland. It is also called androgen deprivation therapy (ADT) or androgen suppression therapy. Hormone suppression therapy targets male sex hormones (androgens) in the body that help cancer cells grow. Hormone suppression therapy alone will not cure prostate cancer, but it can slow the growth of cancer cells and may shrink tumors over time. Your health care provider can help you find the best treatment that fits your lifestyle. Hormone suppression therapy may be used in the following cases: ? When prostate cancer has spread too far to other places in the body and cannot be cured by surgery or radiation. ? When a person has health problems that prevent the use of surgery or radiation. ? Before radiation to help shrink the size of the cancer and make the radiation treatment more effective. ? If the prostate cancer remains or comes back following treatment with surgery or radiation. What are the types of hormone suppression therapy? Orchiectomy Orchiectomy, also called surgical castration, is a surgery to remove one or both testicles. The testicles make the two main androgens?testosterone and dihydrotestosterone (DHT). This surgery reduces the levels of testosterone in the blood, leading to decreased androgen production. Medicine therapy Medicine therapy, also called medical or chemical castration, involves taking medicines to keep your body from making or using androgens. Medicines can do this in one of three ways: 1. Reducing androgen production by the testicles. ? Luteinizing hormone-releasing hormone (LHRH) agonists. These medicines are injected or implanted under your skin to lower the amount of androgens that your testicles make. Depending on the medicine, they can be given monthly or up to every 3 to 6 months. If you take these medicines, you may also be prescribed other medicines to help with side effects. ? LHRH antagonists. These medicines also work to lower the amount of androgens made in the testicles, but they work faster than LHRH agonist medicines and have less severe side effects. They are given as a monthly injection under the skin, and they are used when prostate cancer is in an advanced stage. ? Estrogens. These medicines are female hormones that help to reduce androgen production by the testicles. Estrogens are not used as commonly as other types of hormone suppression therapy due to their side effects. However, they may be used if other treatments do not work. 2. Blocking androgen attachment throughout the body. ? Anti-androgen medicines, also called androgen receptor antagonists, block areas on the body where androgens attach. These are pills that are usually used in combination with other types of hormone suppression therapy, like orchiectomy and other medicines. 3. Blocking androgen production throughout the body. ? Androgen synthesis inhibitor medicines. These medicines help to stop other areas of the body from making androgens. They are taken as pills. They may be used if the prostate cancer is advanced and has not gotten better with surgery or other medicines. A steroid medicine may be given with this type of medicine to help with side effects. What are the risks? Hormone suppression therapy may cause side effects, including: ? Hot flashes. ? Diarrhea and nausea. ? Itching. ? Sexual side effects, such as: ? Decrease or lack of sexual desire. ? Decrease in size of the penis or testicles. ? Inability to get an erection (erectile dysfunction, or impotence). ? Breast tenderness or increase in breast size. ? Fatigue. ? Weight gain. ? Anemia. ? Thinning of the bones (osteoporosis) and loss of muscle mass. ? Depression, mood swings, and trouble with thinking or focusing. Hormone suppression therapy may also increase your risk of high blood pressure, increased cholesterol levels, stroke, heart attack, or diabetes. What are the benefits? One of the main benefits of hormone suppression therapy is having additional treatment options. You may have only one type of treatment, or two or more types at the same time. Treatments may be combined to: ? Help with side effects. ? Treat advanced cancer. Where to find more information ? [place] [employer]: www.cancer.org ? National Cancer [place]: www.cancer.gov Contact a health care provider if: ? You have pain or side effects that do not get better with treatment. ? You have trouble urinating. ? You have new side effects that do not go away. Get help right away if: ? You have severe chest pain. ? You have trouble breathing. ? You have an irregular heartbeat. ? You have numbness or paralysis in the lower half of your body. ? You are confused. ? You have trouble talking or understanding speech. These symptoms may be an emergenc (more content not included)... Normal [facility] Urology Office/Clinic Noteon 03-15-2023 Urology Office/Clinic Note Chief Complaint f/u to TRUS Bx HPI Staff F/u to TRUS Bx done 03/07/23. Previous dx of elevated PSA, family hx of prostate cancer (father), former smoker. Dysuria: no Incomplete bladder emptying: no Hematuria: no Frequency: no Urgency: no Nocturia: 2x Stream: good no straining Leaking: no Post void dripping: no Wearing pads/ Depends: no Urge incontinence: no Stress incontinence: no Incontinence without Sensory Awareness: no Abdominal pain: none Flank pain: none Sexual complaints: none History of Present Illness Tests reviewed: reviewed UA, op note, path. I have reviewed the previous health record information and history for this patient from Dr. Westfall. I have reviewed and verified the staff HPI to be accurate for this encounter. There have been no associated fever, chills, flank pain, or blood in the urine. Denies any urinary infections since last encounter. Review of Systems PHQ Score Initial Depression Screen Score: 0 ROS - Provider Constitutional: denies weight loss, denies hot flashes. Eyes: denies eye problems. Gastrointestinal: denies nausea, denies vomiting. Cardiovascular: denies chest pain or angina. Integumentary: no dryness Musculoskeletal: denies musculoskeletal symptoms. ENMT: denies otolaryngeal symptoms. Respiratory: no shortness of breath. Heme/Lymph: denies easy bleeding tendency, denies easy bruising tendency. Psychiatric: no confusion, no anxiety. Genitourinary: See HPI. Physical Exam Vitals & Measurements HR: 78(Peripheral) RR: 16 BP: 132/70 HT: 70 in HT: 178 cm WT: 100 kg WT: 220 lb BMI: 31.56 General Appearance: alert, no distress, well nourished, well developed male. Genitourinary: normal scrotum, normal testes, normal urethra, normal epididymis, normal vas deferens/spermatic cord. Flank Pain: none. Bladder: nonpalpable. Assessment/Plan Pt here with today. 1. Prostate cancer (C61: Malignant neoplasm of prostate) PSA: 09/25/14 - 1.11 02/10/23 - 26.2 JEFERSON 03/01/23 - Abnormal prostate, estimated weight 40 gms, yes hard nodule observed. rock hard prostate L >>R [1]. TRUS/bx 03/07/23 - Cannelton 8 (4+4) x 4 cores, highest % of core involvement 85%. Ev 7 (4+3) x 5 cores, highest % of core involvement 66%. SADA x 3 cores. All cores taken were abnormal. The pathology report, which shows the presence of prostate cancer, was disclosed to the patient in detail today. I discussed with the patient all the treatment options, including brachytherapy, EBRT, SBRT, ADT, combination of therapy options. I went over the pros and cons of each therapy today, and this [place] prostate cancer book was provided. Explained that he has high grade and high volume cancer and will definitely require treatment. Discussed staging studies.. If staging shows mets, absolutely not a candidate for RALP. Regardless almost guaranteed that he would have positive margins due to high-grade high volume cancer. Explained possible SEs of radiation. Also discussed referral to radiation oncology. Taking abx for hip infection. Follows with disease control in [place] for his orthopedic infection. He wishes for seeds/external radiation vs. surgery. Follow up after below or sooner if needed. Pt understands and agrees with plan. -NM bone scan. -CT AP w/wo con. -Refer to rad onc. -Start Casodex 50 mg qd. SEs discussed. Rx sent to [facility] [place]. will give Lupron when prior auth is completed. 2. Family history of prostate cancer in father (Z80.42: Family history of malignant neoplasm of prostate) Pt's father had prostate/colon cancer, treated with radiation seeds. [1] Follow-up With When Contact Information MALOU MCGREGOR, German Colmenares, URL [facility] [address], [place] [address]- Additional Instructions: f/u after NM bone, CT, and referral Patient Education Hormone Suppression Therapy for Prostate Cancer Brachytherapy for Prostate Cancer Prostate Cancer I, Jennie Mirza, personally scribed for Dr. Westfall on 03/15/2023 11:37:21. . Documentation recorded by the scribe, Jennie Mirza, accurately reflects the services(s) I performed and decisions made by me. Authenticated by Dr. Westfall on 03/15/2023 11:47:22. 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 Medications Augmentin 500 mg-125 mg Tab (more content not included)... Normal [facility] Comment on above: Result Comment: Elec tronically Signed By: German WESTFALL MD\.br\Date and Time Signed: 03/15/23 11:47 EDT\.br\Electronically Co-Signed By: Jennie Mirza\.br\Date and Time Co-Signed: 03/15/23 11:42 EDT Prostate Histology ([facility]) on 03-13-2023 Prostate Histology Diagnosis Info Invalid Interpretation Code [facility] Comment on above: Result Comment: A:Pr ostate,Left Lateral Base:Needle Biopsy Interpretation - - Atypical acinar glands suspicious for adenocarcinoma. MicroScopic Description - B:Prostate,Left Lateral Mid:Needle Biopsy Interpretation - - Acinar adenocarcinoma of prostate; C[place] score 8(4+4); Tumor measures 0.60 cm in length; 85% of the core involved by tumor; 1 of 1 core involved. MicroScopic Description - C:Prostate,Left Lateral [place]:Needle Biopsy Interpretation - - Acinar adenocarcinoma of prostate; C[place] score 8(4+4); Tumor measures 0.15 cm in length; 37% of the core involved by tumor; 1 of 1 core involved. MicroScopic Description - D:Prostate,Left Base:Needle Biopsy Interpretation - - Acinar adenocarcinoma of prostate; [place] score 8(4+4); Tumor measures 0.5 cm in length; 62% of the core involved by tumor; 1 of 1 core involved. MicroScopic Description - E:Prostate,Left Mid:Needle Biopsy Interpretation - - Acinar adenocarcinoma of prostate; Ev score 7(4+3); Tumor measures 1 cm in length; 66% of the core involved by tumor; 1 of 1 core involved. MicroScopic Description - F:Prostate,Left [place]:Needle Biopsy Interpretation - - Atypical small acinar glands. MicroScopic Description - G:Prostate,Right Base:Needle Biopsy Interpretation - - Acinar adenocarcinoma of prostate; C[place] score 7(4+3); Tumor measures 0.35 cm in length; 26% of the core involved by tumor; 1 of 1 core involved. MicroScopic Description - H:Prostate,Right Mid:Needle Biopsy Interpretation - - Acinar adenocarcinoma of prostate; [place] score 7(4+3); Tumor measures 0.6 cm in length; 31% of the core involved by tumor; 1 of 1 core involved. MicroScopic Description - I:Prostate,Right [place]:Needle Biopsy Interpretation - - Acinar adenocarcinoma of prostate; Ev score 7(4+3); Tumor measures 0.83 cm in length; 46% of the core involved by tumor; 1 of 1 core involved. MicroScopic Description - J:Prostate,Right Lateral Base:Needle Biopsy Interpretation - - Acinar adenocarcinoma of prostate; Ev score 8(4+4); Tumor measures 0.31 cm in length; 31% of the core involved by tumor; 1 of 1 core involved. MicroScopic Description - K:Prostate,Right Lateral Mid:Needle Biopsy Interpretation - - Acinar adenocarcinoma of prostate; C[place] score 7(4+3); Tumor measures 1.3 cm in length; 65% of the core involved by tumor; 1 of 1 core involved. MicroScopic Description - L:Prostate,Right Lateral [place]:Needle Biopsy Interpretation - - Atypical acinar glands suspicious for adenocarcinoma. MicroScopic Description - Gross Description Site ID:A color mitchell-white fixative Formalin cores 1 units cm coiled Site ID:B color mitchell-white fixative Formalin cores 1 units cm Site ID:C color mitchell-white fixative Formalin cores 1 units cm Site ID:D color mitchell-white fixative Formalin cores 1 units cm fragmented, adhered to sponge Site ID:E color mitchell-white fixative Formalin cores 1 units cm Site ID:F color mitchell-white fixative Formalin cores 1 units cm Site ID:G color mitchell-white fixative Formalin cores 1 units cm partially coiled Site ID:H color mitchell-white fixative Formalin cores 1 units cm Site ID:I color mitchell-white fixative Formalin cores 1 units cm Site ID:J color mitchell-white fixative Formalin cores 1 units cm Site ID:K color mitchell-white fixative Formalin cores 1 units cm Site ID:L color mitchell-white fixative Formalin cores 1 units cm Highest grade group: [place] score 4+4=8, grade group 4. Highest percentage of core involvement: 85% Cribriform pattern 4: Identified This Grade Group system was recently endorsed by both the International Society of Urological Pathology (ISUP, 2015) and the World Health Organization (WHO). Electronically signed by : on: 03/13/2023 13:24:39 Performed By: #### 1 [id number] ####[facility] [address] [place] [address] Consent for Procedure/Surger yon 03-07-2023 Consent for Procedure/Surgery [id number]:127 Normal [facility] Consent for Treatmenton 02-17 Consent for Treatment [id number]:127 Normal [facility] IntraOperative Documentson 0 03-07-2023 IntraOperative Documents [id number]:127 Normal [facility] Main OR Intraoperative Recor don 03-07-2023 Main OR Intraoperative Record IntraOp Document Type FTURO Summary Primary Physician: German WESTFALL MD Finalized Date/Time: 03/07/23 09:10:52 Pt. Name: JHONATHAN AGUILAR /Sex: 1945 Male Med Rec #: [id number] Physician: German WESTFALL MD Financial #: [id number] Pt. Type: O Room/Bed: / Admit/Disch: 03/07/23 07:43:39 - Institution: Case Times FTURO Entry 1 Patient Times In Room 03/07/23 08:43:00 Out Room 03/07/23 09:07:00 Procedure Times Start 03/07/23 08:50:00 Stop 03/07/23 08:57:00 Anesthesia Times Last Modified By: Melinda oStelo RN 03/07/23 09:07:30 Case Attendance FTURO Entry 1 Entry 2 Entry 3 Case Attendee German WESTFALL MD SENIOR ANALYST [employer], Nova Sotelo RN, Melinda Farmer Role Performed Surgeon - Primary Scrub - Primary Dye Expert - Primary Time In 03/07/23 08:43:00 03/07/23 08:43:00 03/07/23 08:43:00 Time Out 03/07/23 09:07:00 03/07/23 09:07:00 03/07/23 09:07:00 Procedure PROSTATE TRANSRECTAL PROSTATE TRANSRECTAL PROSTATE TRANSRECTAL ULTRASOUND WITH BIO(.) ULTRASOUND WITH BIO(.) ULTRASOUND WITH BIO(.) Comments Last Modified By: Deepak SAINI, Melinda Sotelo RN, Melinda Lozoya RN 03/07/23 09:07:32 03/07/23 09:07:32 03/07/23 09:07:32 Surgical Procedures FTURO Entry 1 Procedure Description Procedure PROSTATE TRANSRECTAL Modifiers . ULTRASOUND WITH BIOPSY Surgeon Description PROSTATE TRANSRECTAL ULTRASOUND WITH BIOPSY Primary Procedure Yes Primary Surgeon German WESTFALL MD Start 03/07/23 08:50:00 Stop 03/07/23 08:57:00 Anesthesia Type Local Surgical Service Urology Wound Class 2 - Clean-Contaminated Last Modified By: Melinda Sotelo RN 03/07/23 08:57:42 General Case Data FTURO Pre-Care Text: Classifies surgical wound, implements aseptic technique, initiates traffic control Entry 1 Case Information OR URO 1 FT Case Level None Wound Class 2 - Clean-Contaminated Specialty Urology Preop Diagnosis ELEVATED PSA ABNORMAL Postop Same As Preop Yes JEFERSON Postop Diagnosis ELEVATED PSA ABNORMAL Outcomes Met? Yes JEFERSON Last Modified By: Melinda Sotelo RN 03/07/23 07:57:14 Post-Care Text: The patient is free from signs and symptoms of infection EU IntraOp - FTURO Pre-Care Text: Implements protective measures prior to operative or invasive procedure, confirms identity before the operative or invasive procedure, verifies operative procedure, surgical site, and laterality Entry 1 EU Perioperative Protocols Procedure(s) PROSTATE TRANSRECTAL Patient Identity Birthday, ID Band ULTRASOUND WITH BIO(.) Verified (select at Check, Patient least 2): Participation Consents / H and P HandP, Surgery/Procedure Operative Site N/A Verified Consent Marking Verified Surgical Site Yes Laterality Verified Yes Verified Procedure Verified Yes Correct Patient Yes Position Verified Availability Equipment, Medication Time Out MALOU MCGREGOR, German Colmenares, Verified (If Participants Nova Amado CST, Applicable) Melinda Sotelo RN Time Out Complete 03/07/23 08:44:00 Allergies Reviewed? Yes Allergies Reviewed Self/Patient With Body Position Lateral, right side up Prep Area none Prep Agents None Skin. Condition Dry, Warm, Unable to Description UNABLE TO VISUALIZE DUE Visualize TO PATIENT PARTIALLY CLOTHED Additional Tissue Specimens Comment PROSTATE TISSUE BIOPSY Specimens Collected X 1 SPECIMENS Vitals - EU Blood Pressure 140/73 Pulse 70 bpm Respirations 20 br/min SPO2 96 % EBL 0 IandO - EU Total Intake 0 mL Total Output 0 mL Outcomes Met? Yes Last Modified By: Melinda Sotelo RN 03/07/23 08:44:15 Post-Care Text: The patient is free from signs and symptoms of injury caused by extraneous objects Sign Out FTURO Entry 1 Before Patient Leaves OR Nurse verbally Yes Nurse verbally Yes confirms with the confirms with the team the name of team that the procedure(s) instrument, sponge, recorded and needle counts are correct (or N/A) Nurse verbally Yes Nurse verbally Yes confirms with the confirms with the team how the team whether there specimen is labeled are any equipment (including patient problems to be name), if applicable addressed Sign Out Complete 03/07/23 08:57:00 Last Modified By: Melinda Sotelo RN 03/07/23 08:57:39 Case Comments Finalized By: Melinda Sotelo RN Document Signatures Signed By: Melinda Sotelo RN 03/07/23 09:10 Normal [facility] Main OR Preoperative Recordo n 03-07-2023 Main OR Preoperative Record Holding Area Document Type FTURO Summary Primary Physician: German WESTFALL MD Finalized Date/Time: 03/07/23 08:44:42 Pt. Name: JHONATHAN AGUILAR Soni [place]/Sex: 1945 Male Med Rec #: [id number] Physician: German WESTFALL MD Financial #: [id number] Pt. Type: O Room/Bed: / Admit/Disch: 03/07/23 07:43:39 - Institution: Case Times Holding FTURO Pre-Care Text: Verifies consent for planned procedure, identifies individual values and wishes concerning care, includes family members in perioperative teaching Secures patient's records' belongings, and valuables, maintains patient's dignity and privacy, and maintains patient confidentiality Entry 1 In Holding 03/07/23 07:53:00 Outcomes Met? Yes Last Modified By: Dawn Butt LPN 03/07/23 07:56:23 Post-Care Text: The patient participates in decisions affecting his or her perioperative plan of care The patient's right to privacy is maintained Surgery Checklist FTURO Entry 1 Patient Birthday, ID Band Procedure Surgical Consent, With Identification: Check, Patient Verification: Patient Participation NPO after Midnight: n/a Date/Time: 03/07/23 07:58:00 Personal Items: Cataract Lens Implant, Personal Items lens implant left eye, Glasses, Jewelry Comment: watch, glasses, wallet Complaints of Pain: No Skin Integrity Intact, [place], Warm, & Dry Vitals - EU Blood Pressure 140/73 Pulse 70 bpm Respirations 20 br/min SPO2 96 % RN Reviewed Yes Last Modified By: Melinda Sotelo RN 03/07/23 08:44:39 General Comments: Temp 36.4 Finalized By: Melinda Sotelo RN Document Signatures Signed By: Dawn Butt LPN 03/07/23 08:00 Melinda Sotelo RN 03/07/23 08:44 Normal [facility] Operative Reporton Operative Report Patient: ESTEFANIA AGUILAR Age: 77 years Sex: Male : 1945 Associated Diagnoses: None Author: German WESTFALL MD Procedure Operative Information Details: Date/ Time: 03/07/2023 09:05:00. Pre-Op Dx: Elevated PSA - R97.20, Prostate Nodule without Symptoms - N40.2. Post-Op Dx: Same. Anesthesia Type: Local, Periprostatic Nerve Block. Procedure: Transrectal Ultrasound and Transrectal Ultrasound-Guided Biopsy of the Prostate. Complications: None. Risks/Benefits/Informed Consent: Surgical risks, benefits, details of the procedure have been explained to the patient, Full informed consent has been obtained. Intraoperative Information Prepped: The patient was brought to the office suite, placed in the modified left lateral Esquivel position, The patient was draped appropriately, 80 mg Gentamicin IM injection administered. Procedure: Then 2% Xylocaine jelly was used for intrarectal anesthesia, After waiting several minutes, a well lubricated ultrasound probe was introduced per rectum, The prostate was carefully evaluated in the AP and Sagittal views. Volume: 42 CC. Specimens Removed: A total of 12 biopsies were taken, 6 from each side, and sent to pathology. Devices Implanted: None. Postoperative Information Discharge: The patient tolerated the procedure well and was discharged home in satisfactory condition, The patient was instructed to (Finish antibiotics, Avoid strenuous activity, Go to the emergency room for gross bleeding, fever, or chills). Radiology Report Procedure: Transrectal Ultrasound of the Prostate, Transrectal US guided needle biopsy of the prostate. Narrative: Ultrasound probe is introduced and performed in the longitudinal and transverse plains, The gland measures (48 MM Length, 44 MM Width, 38 MM Depth, with a calculated volume of 42 CC), The prostatic capsule and seminal vesicles appear to be within normal limits, The peripheral zone demonstrates Hypoechoic area right base, Ultrasound guidance was then utilized to obtain 12 biopsies, These were sent to pathology for evaluation. Normal [facility] Comment on above: Result Comment: Elec tronically Signed By: MALOU MCGREGOR, German Webster\Date and Time Signed: 03/07/23 09:08 EDT Outpatient Surgery Discharge Instructionon 03-07-2023 Outpatient Surgery Discharge Instruction [id number]:127 Normal [facility] Patient Educationon 03-07-20 Patient Education Custom Transrectal Ultrasound of the Prostate with US guided biopsy ? Even though there are no visible incisions, multiple prostate biopsies have been taken through the rectum and you need to follow some instructions to minimize the risks of bleeding. ? You may see some blood in your urine and stool for up to 1 week (and blood in the semen for several months) ? Diet -You may resume your normal diet, but you may want to avoid alcohol, carbonated drinks, caffeine, and spicy foods, which may increase the irritation from the surgery. -Drink plenty of water to keep the urine clear. ? Activity -You should limit any physical activity for about 48 hours -No heavy lifting or straining (10 pound limit) -No driving a car and limit long car rides for 2 days -No strenuous exercise -No sexual intercourse until this is discussed with your doctor ? Bowels -Try to keep your bowel movements soft to minimize straining to have a bowel movement. -You may use a stool softener or over the counter laxative if needed -Difficult bowel movement may lead to straining and bleeding from the prostate ? Medications -You may resume your home medications unless instructed otherwise -Hold aspirin, ibuprofen, Coumadin (warfarin) and other blood thinners for about two days or until there is no active bleeding unless otherwise instructed -Finish the antibiotic which you have already started ? Things to watch for which would require an Emergency Room visit or call 911: (this is not a complete list) -Persistent or heavy bleeding or blood clots from the rectum or in the urine -Inability to urinate -Fever over 101.5 degrees Fahrenheit, with or without chills -Severe drug reactions with itching, hives or rash -Tenderness or swelling of the calves, chest pain, or shortness of breath ? Please call the office to arrange for your post-operative appointment in 1-2 weeks [phone] or [phone] Normal [facility] Prostate Histology ([facility]) on 03-07-2023 PH Method of Extraction Needle Biopsy Normal [facility] Comment on above: Performed By: #### 1 [id number] ####[facility] [address] [place] [address] PH Number of Jars 2 Invalid Interpretation Code [facility] Comment on above: Performed By: #### 1 [id number] ####[facility] [address] [place] [address] PH Specimen 1 L Base Prostate Normal [facility] Comment on above: Performed By: #### 1 [id number] ####[facility] [address] [place] [address] PH Specimen 10 R Lat Bse Prost Normal [facility] Comment on above: Performed By: #### 1 [id number] ####[facility] [address] [place] [address] PH Specimen 11 R Lat Mid Prost Normal [facility] Comment on above: Performed By: #### 1 [id number] ####[facility] [address] [place] [address] PH Specimen 12 R Lat Apx Prost Normal [facility] Comment on above: Performed By: #### 1 [id number] ####[facility] [address] [place] [address] PH Specimen 2 L Mid Prostate Normal [facility] Comment on above: Performed By: #### 1 [id number] ####[facility] [address] [place] [address] PH Specimen 3 L Apx Prostate Normal [facility] Comment on above: Performed By: #### 1 [id number] ####[facility] [address] [place] [address] PH Specimen 4 L Lat Bse Prost Normal [facility] Comment on above: Performed By: #### 1 [id number] ####[facility] [address] [place] [address] PH Specimen 5 L Lat Mid Prost Normal [facility] Comment on above: Performed By: #### 1 [id number] ####[facility] [address] [place] [address] PH Specimen 6 L Lat Apx Prost Normal [facility] Comment on above: Performed By: #### 1 [id number] ####[facility] [address] [place] [address] PH Specimen 7 R Base Prostate Normal [facility] Comment on above: Performed By: #### 1 [id number] ####[facility] [address] [place] [address] PH Specimen 8 R Mid Prostate Normal [facility] Comment on above: Performed By: #### 1 [id number] ####[facility] [address] [place] [place] [address] PH Specimen 9 R Apx Prostate Normal [facility] Comment on above: Performed By: #### 1 [id number] ####[facility] [address] [place] [place] [address] PH Type of Service Technical Only Normal [facility] Comment on above: Performed By: #### 1 [id number] ####[facility] [address] [place] [address] Ambulatory Visit Summaryon 0 03-01-2023 Ambulatory Visit Summary JHONATHAN AGUILAR :1945 Visit Date:03/01/2023 Ambulatory Visit Instructions Your Diagnosis Elevated PSA Family history of prostate cancer Former smoker Tests Performed Urnls Dip Stick Auto w/o Microscopy POC 92175 Your Care Team Attending Physician - MALOU MCGREGOR, German Colmenares Primary Care Physician - JENNY MCGREGOR, UDAY Stoll Referring Physician - UDAY WILSON MD This Is Your Medications List Contact prescribing physician if questions or concerns Misc Prescription (Handicap Placard) acetaminophen (Tylenol) amoxicillin-clavulanate (Augmentin 500 mg-125 mg Tab) bifidobacterium-lactobacil jb (Probiotic + Colostrum) dicyclomine (dicyclomine 20 mg Tab) meloxicam (meloxicam 7.5 mg Tab) Procedures Performed Cataract, Cyst, Hip arthroplasty, Surgery. Discharge Vitals Heart Rate (Peripheral) 63 Blood Pressure 134/73 Height 178 cm Height 70 in What to do next Scheduled Follow-Up Appointments Monday 8:00 AM EDT Where: [facility] Tanesha Invalid Interpretation Code Family history of prostate cancer [facility] Formson 03-01-2023 Forms [id number]:127 Normal [facility] Patient Educationon 03-01-20 23 Patient Education Oncology Cancer Screening for Men A cancer screening is a test or exam that checks for cancer. Your health care provider will recommend specific cancer screenings based on your age, medical history (including risk factors), and family history of cancer. Work with your health care provider to create a cancer screening schedule that protects your health. Who should have screening? All men should be considered for screening of certain cancers, including colorectal cancer, prostate cancer, lung cancer, and skin cancer. Your health care provider may recommend screenings for other types of cancer if: ? You had cancer before. ? You have a family member with cancer. ? You have abnormal genes that could increase the risk of cancer. ? You have risk factors for certain cancers, such as current or past use of tobacco products, or being overweight. When you should be screened for cancer depends on: ? Your age. ? Your medical history and your family's medical history. ? Certain lifestyle factors, such as smoking or other use of tobacco products. ? Environmental exposure, such as to asbestos. How is screening done? Colorectal cancer All adults should have screenings starting at age 45 and continuing until age 75. Your health care provider may recommend screening before age 45. You will have tests every 1?10 years, depending on your results and the type of screening test. People at increased risk should start screening at an earlier age. Talk with your health care provider about which screening test is right for you and how often you should be screened. Colorectal cancer screening looks for cancer or for growths called polyps that often form before cancer starts. Tests to look for cancer or polyps include: ? Colonoscopy or flexible sigmoidoscopy. For these procedures, a flexible tube with a small camera is inserted into the rectum. ? CT colonography. This test uses X-rays and a contrast dye to check the colon for polyps. If a polyp is found, you may need to have a colonoscopy so the polyp can be located and removed. Tests to look for cancer in the stool (feces) include: ? Guaiac-based fecal occult blood test (FOBT). This test can find blood in stool. It can be done at home with a kit. ? Fecal immunochemical test (FIT). This test can find blood in stool. For this test, you will need to collect stool samples at home. ? Stool DNA test. This test looks for blood in stool and any changes in DNA that can lead to colon cancer. For this test, you will need to collect a stool sample at home and send it to a lab. Prostate cancer Prostate cancer screening for men with average risk may start at age 50. Men with risk factors may need to be screened earlier, at ages 40?45. Talk with your health care provider about whether screening is right for you and, if so, how often you should be screened. Prostate cancer screening is done with blood tests and a digital rectal exam. During this exam, a health care provider uses a gloved finger to check prostate size. You may need to be screened for prostate cancer if: ? You have risk factors for prostate cancer, such as being or having a close family member with prostate cancer. ? You have had gene changes or a genetic condition that was passed on to you from a parent (inherited). These gene changes or genetic conditions include BRCA1 or BRCA2 gene mutations or Holder syndrome. ? You have symptoms of prostate cancer, such as problems urinating or problems getting or keeping an erection (erectile dysfunction). When you have been screened for prostate cancer, future screening may be recommended based on the results of your blood tests. Lung cancer Lung cancer screening is done with a CT scan that looks for abnormal changes in the lungs. Discuss lung cancer screening with your health care provider if you are 50?80 years old and if any of the following apply to you: ? You currently smoke. ? You used to smoke heavily. ? You have a smoking history of 1 pack of cigarettes a day for 20 years or 2 packs a day for 10 years. ? You have quit smoking within the past 15 years. You may need to be screened every year if you smoke heavily or if you used to smoke. Skin cancer Skin cancer screening is done by checking the skin for unusual moles or spots and any changes in existing moles. Your health care provider should check your skin for signs of skin cancer at every physical exam. You should check your skin every month and tell your health care provider right away if anything looks unusual. Men with a irxaok-jujf-xtplka risk for skin cancer may want to see a retail customer service specialist (bindery machine tender) for an annual body check. What are the benefits of screening? Cancer screening is done to look for cancer in the very early stages, before it spreads and becomes harder to treat and before you would start to notice symptoms. Finding cancer early improves the chances of successful treatment. It ma (more content not included)... Normal [facility] Pre-Certification Formon Pre-Certification Form [id number]:127 Normal [facility] Screenson 03-01-2023 Screens [id number]:127 Normal [facility] Auto Diffon 02-15-2023 Basophils/100 WBC (Bld) 0.5 % Normal 0.0-2.0 [facility] Comment on above: Order Comment: Order Added by Discern Expert. Performed By: #### 2 [id number] ####[facility] [address] [place] [address] Basophils/Leukocyte s Auto (Bld) [Pure # fraction] 0.0 E9/L Normal 0.0-0.2 [facility] Comment on above: Order Comment: Order Added by Discern Expert. Performed By: #### 2 [id number] ####[facility] [address] [place] [address] Eosinophils/100 WBC (Bld) 6.0 % Normal 0.0-8.0 [facility] Comment on above: Order Comment: Order Added by Discern Expert. Performed By: #### 2 [id number] ####[facility] [address] [address] Eosinophils/Leukocy aminata Auto (Bld) [Pure # fraction] 0.3 E9/L Normal 0.0-0.5 [facility] Comment on above: Order Comment: Order Added by Discern Expert. Performed By: #### 2 [id number], [id number] ####[address] [address] Lymphocytes/100 WBC (Bld) 39.4 % Normal 14.0-50.0 [facility] Comment on above: Order Comment: Order Added by Discern Expert. Performed By: #### 2 [id number], [id number] ####[address] [address] Lymphocytes/Leukocy aminata Auto (Bld) [Pure # fraction] 2.3 E9/L Normal 1.0-4.0 [facility] Comment on above: Order Comment: Order Added by Discern Expert. Performed By: #### 2 [id number], [id number] ####[address] [address] Monocytes/100 WBC (Bld) 9.0 % Normal 4.0-14.0 [facility] Comment on above: Order Comment: Order Added by Discern Expert. Performed By: #### 2 [id number], [id number] ####[address] [address] Monocytes/Leukocyte s Auto (Bld) [Pure # fraction] 0.5 E9/L Normal 0.2-1.0 [facility] Comment on above: Order Comment: Order Added by Discern Expert. Performed By: #### 2 [id number], [id number] ####[address] [address] Neutrophils/100 WBC (Bld) 45.1 % Normal 36.0-75.0 [facility] Comment on above: Order Comment: Order Added by Discern Expert. Performed By: #### 2 [id number], [id number] ####[address] [address] [address] Neutrophils/Leukocy aminata Auto (Bld) [Pure # fraction] 2.6 E9/L Normal 2.0-7.5 [facility] Comment on above: Order Comment: Order Added by Discern Expert. Performed By: #### 2 [id number], [id number] ####[address] [address] CBC w/ Auto Diffon Erythrocyte distribution width (RBC) [Ratio] 13.7 % Normal 10.9-14.2 [facility] Comment on above: Performed By: #### 2 894573, [id number] ####[address] [address] Hematocrit (Bld) [Volume fraction] 45.9 % Normal 37.7-49.0 [facility] Comment on above: Performed By: #### 2 [id number], [id number] ####[address] [address] Hemoglobin (Bld) [Mass/Vol] 15.6 g/dL Normal 13.5-17.5 [facility] Comment on above: Performed By: #### 2 882708, 3266703 ####[address] [address] MCH (RBC) [Entitic mass] 32.1 pg Normal 27.0-34.0 [facility] Comment on above: Performed By: #### 2 195133, [id number] ####[address] [address] MCHC (RBC) [Mass/Vol] 34.0 g/dL Normal 31.4-36.0 [facility] Comment on above: Performed By: #### 2 549963, 3303484 ####[address] [address] MCV (RBC) [Entitic vol] 94.4 fL Normal 80.0-100.0 [facility] Comment on above: Performed By: #### 2 818193, 8783372 ####[address] [address] Platelet mean volume (Bld) [Entitic vol] 9.6 fL Normal 6.4-10.8 [facility] Comment on above: Performed By: #### 2 296402, 8372243 ####[facility] [address] [place] [address] RBC (Bld) [#/Vol] 4.9 E12/L Normal 4.3-5.9 [facility] Comment on above: Performed By: #### 2 703890, 9770323 ####[facility] [address] [place] [address] WBC corrected for nucl RBC Auto (Bld) [#/Vol] 5.7 E9/L Normal 4.0-11.0 [facility] Comment on above: Performed By: #### 2 721232, [id number] ####[address] [address] Platelets (Bld) [#/Vol] 170.5 E9/L Normal 150.0-500.0 [facility] Comment on above: Result Comment: na c itrate Performed By: #### 2 051231, [id number] ####[facility] [address] [place] [address] HEMATOLOGYOrdered By: SYSTEM SYSTEM on 02-15-2023 Basophils/100 WBC (Bld) 0.5 % Normal 0.0 - 2.0 % [facility] HemeAutoSS Basophils/Leukocyte s Auto (Bld) [Pure # fraction] 0.0 E9/L Normal 0.0 - 0.2 E9/L [facility] HemeAutoSS Eosinophils/100 WBC (Bld) 6.0 % Normal 0.0 - 8.0 % [facility] HemeAutoSS Eosinophils/Leukocy aminata Auto (Bld) [Pure # fraction] 0.3 E9/L Normal 0.0 - 0.5 E9/L [facility] HemeAutoSS Lymphocytes/100 WBC (Bld) 39.4 % Normal 14.0 - 50.0 % [facility] HemeAutoSS Lymphocytes/Leukocy aminata Auto (Bld) [Pure # fraction] 2.3 E9/L Normal 1.0 - 4.0 E9/L [facility] HemeAutoSS Monocytes/100 WBC (Bld) 9.0 % Normal 4.0 - 14.0 % [facility] HemeAutoSS Monocytes/Leukocyte s Auto (Bld) [Pure # fraction] 0.5 E9/L Normal 0.2 - 1.0 E9/L [facility] HemeAutoSS Neutrophils/100 WBC (Bld) 45.1 % Normal 36.0 - 75.0 % [facility] HemeAutoSS Neutrophils/Leukocy aminata Auto (Bld) [Pure # fraction] 2.6 E9/L Normal 2.0 - 7.5 E9/L [facility] HemeAutoSS HEMATOLOGYOrdered By: Amanda Holm on 02-15-2023 Erythrocyte distribution width (RBC) [Ratio] 13.7 % Normal 10.9 - 14.2 % [facility] HemeAutoSS Hematocrit (Bld) [Volume fraction] 45.9 % Normal 37.7 - 49.0 % [facility] HemeAutoSS Hemoglobin (Bld) [Mass/Vol] 15.6 g/dL Normal 13.5 - 17.5 gm/dL [facility] HemeAutoSS MCH (RBC) [Entitic mass] 32.1 pg Normal 27.0 - 34.0 pg [facility] HemeAutoSS MCHC (RBC) [Mass/Vol] 34.0 g/dL Normal 31.4 - 36.0 gm/dL [facility] HemeAutoSS MCV (RBC) [Entitic vol] 94.4 fL Normal 80.0 - 100.0 fL [facility] HemeAutoSS Platelet mean volume (Bld) [Entitic vol] 9.6 fL Normal 6.4 - 10.8 fL [facility] HemeAutoSS Platelets (Bld) [#/Vol] 170.5 E9/L Normal 150.0 - 500.0 E9/L [facility]Auto[facility] Comment on above: Result Comment: na c itrate RBC (Bld) [#/Vol] 4.9 E12/L Normal 4.3 - 5.9 E12/L [facility] HemeAutoSS WBC corrected for nucl RBC Auto (Bld) [#/Vol] 5.7 E9/L Normal 4.0 - 11.0 E9/L [facility] HemeAutoSS Patient Correspondenceon Patient Correspondence [id number]:127 Normal [facility] Physician Referralon 023 Physician Referral [id number]#[id number]:127 Normal [facility] Ambulatory Visit Summaryon 0 02-14-2023 Ambulatory Visit Summary JHONATHAN AGUILAR :1945 Visit Date:02/14/2023 Ambulatory Visit Instructions Your Diagnosis Annual visit for general adult medical examination without abnormal findings Over weight Procedure and treatment not carried out because of patient's decision for unspecified reasons IBS - Irritable bowel syndrome Hip pain PSA elevation Body mass index [BMI] 31.0-31.9, adult Your Care Team Attending Physician - UDAY WILSON MD Primary Care Physician - UDAY WILSON MD This Is Your Medications List Misc Prescription (Handicap Placard) amoxicillin-clavulanate (Augmentin 500 mg-125 mg Tab) dicyclomine (dicyclomine 20 mg Tab) meloxicam (meloxicam 7.5 mg Tab) Procedures Performed Cyst, Hip arthroplasty, Surgery. Discharge Vitals Heart Rate (Peripheral) 73 Blood Pressure 120/68 Height 177.8 cm Height 70 in Weight 98 kg Weight 215.6 lb BMI 31 What to do next Scheduled Follow-Up Appointments Monday 8:00 AM EDT Where: [facility] [employer] Normal [facility] Family Medicine Office/Clini c Noteon 02-14-2023 Family Medicine Office/Clinic Note Chief Complaint Subsequent Medicare Wellness Vist Review of Systems PHQ Score Initial Depression Screen Score: 0 Physical Exam Vitals & Measurements HR: 73(Peripheral) BP: 120/68 SpO2: 94% HT: 177.8 cm HT: 70 in WT: 98 kg WT: 215.6 lb BMI: 31 Assessment/Plan 1. Annual visit for general adult medical examination without abnormal findings (Z00.00: Encounter for general adult medical examination without abnormal findings) The patient was given a customized and personalized print out of all the current AHRQ USPSTF?s recommendations for preventative services and all current CDC recommended immunizations, relevant risk recommendations and the following patient brochures were given. Reviewed Medicare preventative services checklist. CDC-Falls Prevention and home safety screening reviewed. Patient denies any falls in last 12 months, voices some worry about falling, due to history of left hip surgery x2. Patient exhibits no problems with sitting, standing, or ambulation. Pt voices understanding with keeping walk way area free of clutter to prevent tripping and/or falling. [place] Advance Directives reviewed, patient is in the process of completing at home, encouraged to bring copy to office for scanning to chart. Patient denies any problems with ADL?s and Instrumental ADL?s. Cognitive screening completed with memory and clock face drawing, no deficits noted. Immunization Record reviewed with the patient. Shingrix vaccine is up to date. COVID vaccines have been administered, with 1 booster. Immunization record is up to date. Allergies and medications reviewed and up to date. Patient denies concerns with taking medication as prescribed, reviewed OTC medications with patient, medication list up to date. Blood tests were reviewed: Discussed what tests need to be updated. Reviewed pain symptoms with patient: states he has chronic hip pain due to previous surgeries, denies pain at present. Reviewed all outside providers that patient follows. Last visit summary notes available in chart and/or have been requested. AWV has been scheduled, 02/19/2024 Medicare provides yearly screening for alcohol and depression concerns. This is completed during our Medicare Wellness visit for those who do not have a current diagnosis of depression or concerns with alcohol use. I spent a total of 17 minutes on this date of service which included preparing to see the patient, face to face patient care, completing clinical documentation, obtaining and/or reviewing separately obtained history, counseling and educating the patient with handouts. Explanations were provided with reviewing questionnaires. AUDIT risk assessment screening completed, risk score 1 with patient denying concerns with use. Completed PHQ-2 risk assessment for depression with risk score 0, negative findings. Patient has been reminded to notify the provider if there would be a change or concerns with symptoms with fear, unable to sleep, worrying too much or feeling down and/or sad with lost of interest with daily activities. Will continue to monitor with screening yearly during Medicare wellness visits. 2. Over weight (E66.3: Overweight) A combination of diet and exercise can help you lose the weight. Discussed weight loss benefits to dietary management and overall health with increased cardiovascular risks associated with waist measurement > 40 inches in males. Pt's waist measured 39.7 inches with today's visit. Reminded pt importance to work on lowering current body weight with healthy dietary intake choices with understanding of portion control. Reviewed goals and patient's readiness with needing to make a healthier lifestyle change. Will work on increasing daily activity and prevent further weight gain. Will follow up with PCP during office visits for progress The standard range for ages 18 and older is >=18.5 and < 25 kg/m2. Your BMI 31 today falls into the obesity range. BMI monitoring is helpful with identifying a weight problem that may be related to a medical condition, or may increase the risk for medical problems. Your BMI and weight management will be followed at subsequent visits with your provider and monitored for progress. 3. Procedure and treatment not carried out because of patient's decision for unspecified reasons (Z53.20: Procedure and treatment not carried out because of patient's decision for unspecified reasons) Patient refuses to have screening colonoscopy. Patient denies any concerns or issues at this time. Patient takes dicyclomine as prescribed, states effectiveness. Patient to follow up with PCP at next visit or as needed. 4. IBS - Irritable bowel syndrome (K58.9: Irritable bowel syndrome without diarrhea) Patient taking dicyclomine as prescribed, states effectiveness. Patient denies any concerns or issues at this time. Patient will continue to follow up with PCP as needed. 5. Hip pain (M25.559: Pain in unspecified hip) Patient is taking meloxicam as prescribed, states effectiveness. Pat (more content not included)... Normal [facility] Comment on above: Result Comment: Elec tronically Signed By: UDAY WILSON MD\.br\Date and Time Signed: 02/14/23 11:28 EDT\.br\Electronically Co-Signed By: Juan Jeffers.br\Date and Time Co-Signed: 02/14/23 11:04 EDT Patient Educationon 02-15-20 Patient Education BMI for Adults What is BMI? Body mass index (BMI) is a number that is calculated from a person's weight and height. BMI can help estimate how much of a person's weight is composed of fat. BMI does not measure body fat directly. Rather, it is an alternative to procedures that directly measure body fat, which can be difficult and expensive. BMI can help identify people who may be at higher risk for certain medical problems. What are BMI measurements used for? BMI is used as a screening tool to identify possible weight problems. It helps determine whether a person is obese, overweight, a healthy weight, or underweight. BMI is useful for: ? Identifying a weight problem that may be related to a medical condition or may increase the risk for medical problems. ? Promoting changes, such as changes in diet and exercise, to help reach a healthy weight. BMI screening can be repeated to see if these changes are working. How is BMI calculated? BMI involves measuring your weight in relation to your height. Both height and weight are measured, and the BMI is calculated from those numbers. This can be done either in [place] ([place] or metric measurements. Note that charts and online BMI calculators are available to help you find your BMI quickly and easily without having to do these calculations yourself. To calculate your BMI in [place] measurements: 1. Measure your weight in pounds (lb). 2. Multiply the number of pounds by 703. ? For example, for a person who weighs 180 lb, multiply that number by 703, which equals 126,540. 3. Measure your height in inches. Then multiply that number by itself to get a measurement called inches squared. ? For example, for a person who is 70 inches tall, the inches squared measurement is 70 inches x 70 inches, which equals 4,900 inches squared. 4. Divide the total from step 2 (number of lb x 703) by the total from step 3 (inches squared): 126,540 ? 4,900 = 25.8. This is your BMI. To calculate your BMI in metric measurements: 1. Measure your weight in kilograms (kg). 2. Measure your height in meters (m). Then multiply that number by itself to get a measurement called meters squared. ? For example, for a person who is 1.75 m tall, the meters squared measurement is 1.75 m x 1.75 m, which is equal to 3.1 meters squared. 3. Divide the number of kilograms (your weight) by the meters squared number. In this example: 70 ? 3.1 = 22.6. This is your BMI. What do the results mean? BMI charts are used to identify whether you are underweight, normal weight, overweight, or obese. The following guidelines will be used: ? Underweight: BMI less than 18.5. ? Normal weight: BMI between 18.5 and 24.9. ? Overweight: BMI between 25 and 29.9. ? Obese: BMI of 30 or above. Keep these notes in mind: ? Weight includes both fat and muscle, so someone with a muscular build, such as an athlete, may have a BMI that is higher than 24.9. In cases like these, BMI is not an accurate measure of body fat. ? To determine if excess body fat is the cause of a BMI of 25 or higher, further assessments may need to be done by a health care provider. ? BMI is usually interpreted in the same way for men and women. Where to find more information For more information about BMI, including tools to quickly calculate your BMI, go to these websites: ? Centers for Disease Control and Prevention: www.cdc.gov ? [place] Heart Association: www.heart.org ? National Heart, Lung, and Blood [place]: www.nhlbi.nih.gov Summary ? Body mass index (BMI) is a number that is calculated from a person's weight and height. ? BMI may help estimate how much of a person's weight is composed of fat. BMI can help identify those who may be at higher risk for certain medical problems. ? BMI can be measured using [place]ian measurements or metric measurements. ? BMI charts are used to identify whether you are underweight, normal weight, overweight, or obese. This information is not intended to replace advice given to you by your health care provider. Make sure you discuss any questions you have with your health care provider. Document Revised: 05/27/2020 Document Reviewed: 04/03/2020 [employer] Patient Education ? 2022 [employer] Caregiving Fall Prevention in the Home, Adult Falls can cause injuries and affect people of all ages. There are many simple things that you can do to make your home safe and to help prevent falls. Ask for help when making these changes, if needed. What actions can I take to prevent falls? General instructions ? Use good lighting in all rooms. Replace any light bulbs that burn out, turn on lights if it is dark, and use night-lights. ? Place frequently used items in [id number] places. Lower the shelves around your home if necessary. ? Set up furniture so that there are clear paths around it. Avoid moving your furniture around. ? Remove throw rugs and other tripping hazards from the sumaya (more content not included)... Normal [facility] Screenson 02-14-2023 Screens [id number]:127 Normal [facility] CHEMISTRYOrdered By: SYSTEM SYSTEM on 02-10-2023 Albumin [Mass/Vol] 4.1 g/dL Normal 3.3 - 5.0 gm/dL [facility] Remisol Albumin/Globulin [Mass ratio] 1.3 {ratio} Normal 1.1 - 2.2 [facility] Remisol ALP [Catalytic activity/Vol] 153 [iU]/d High 21 - 98 Int._Unit/L [facility] Remisol ALT No additional P-5'-P [Catalytic activity/Vol] 20 [iU]/d Normal 6 - 46 Int._Unit/L [facility] Remisol Anion gap [Moles/Vol] 8 mmol/L Normal 6 - 16 mEq/L [facility] Remisol AST [Catalytic activity/Vol] 28 [iU]/d Normal 5 - 43 Int._Unit/L [facility] Remisol Bilirubin [Mass/Vol] 0.6 mg/dL Normal 0.0 - 1.1 mg/dL [facility] Calcium [Mass/Vol] 9.1 mg/dL Normal 8.9 - 11. 1 mg/dL [facility] Chloride [Moles/Vol] 107 mmol/L Normal 101 - 111 mmol/L [facility] Cholesterol [Mass/Vol] 165 mg/dL Normal 120 - 200 mg/dL [facility] Cholesterol in HDL [Mass/Vol] 54 mg/dL Invalid Interpretation Code [facility] Cholesterol in LDL [Mass/Vol] 79 mg/dL Normal <=129mg/dL [facility] Cholesterol in VLDL [Mass/Vol] 19 mg/dL Normal 7 - 40 mg/dL [facility] CO2 [Moles/Vol] 27 mmol/L Normal 21 - 31 mmol/L [facility] Creatinine [Mass/Vol] 1.1 mg/dL Normal 0.5 - 1.3 mg/dL [facility] Rem[facility] GFR/1.73 sq M.predicted among non-blacks MDRD (S/P/Bld) [Vol rate/Area] 70 mL/min/1.73 m2 Normal >=59mL/min/1.7 3 m2 [facility] Chem S Globulin (S) [Mass/Vol] 3.1 g/dL Normal 1.4 - 4.0 gm/dL [facility] Remisol Glucose [Mass/Vol] 100 mg/dL Normal 55 - 199 mg/dL [facility] Remisol Potassium [Moles/Vol] 4.3 mmol/L Normal 3.5 - 5.3 mmol/L [facility] Remisol Prostate specific Ag [Mass/Vol] 26.2 ng/mL High 0.1 - 3.5 ng/mL [facility] Remisol Protein [Mass/Vol] 7.2 g/dL Normal 6.0 - 7.8 gm/dL [facility] Remisol Sodium [Moles/Vol] 138 mmol/L Normal 135 - 145 mmol/L [facility] Remisol Triglyceride [Mass/Vol] 97 mg/dL Normal <=149mg/dL [facility] Remisol Urea nitrogen [Mass/Vol] 20 mg/dL Normal 5 - 21 mg/dL [facility] Remisol Urea nitrogen/Creatinine [Mass ratio] 18 mg/mg Normal 10 - 20 [facility] Remisol CMPon 02-10-2023 Albumin [Mass/Vol] 4.1 g/dL Normal 3.3-5.0 [facility] Comment on above: Performed By: #### 1 [id number], [id number], 6473229, 0827145 #### [facility] [address] [place] [address] Albumin/Globulin (S) [Mass conc ratio] 1.3 Normal 1.1-2.2 [facility] Comment on above: Performed By: #### 1 2958455, 63098410, 7125755, 3190948 #### [facility] [address] [place] [address] ALP [Catalytic activity/Vol] 153 Int._Unit/L High 21-98 [facility] Comment on above: Performed By: #### 1 1187223, 61243840, 4321156, 3600883 #### [facility] [address] [place] [address] ALT No additional P-5'-P [Catalytic activity/Vol] 20 Int._Unit/L Normal 6-46 [facility] Comment on above: Performed By: #### 1 9560769, 91867143, 7372108, 7445433 #### [facility] [address] [place] [address] Anion gap [Moles/Vol] 8 mmol/L Normal 6-16 [facility] Comment on above: Performed By: #### 1 5918815, 15032321, 8786275, 8436984 #### [facility] [address] [place] [address] AST [Catalytic activity/Vol] 28 Int._Unit/L Normal 5-43 [facility] Comment on above: Performed By: #### 1 7251226, 00778958, 5430607, 6019960 #### [facility] [address] [place] [address] Bilirubin [Mass/Vol] 0.6 mg/dL Normal 0.0-1.1 [facility] Comment on above: Performed By: #### 1 3007089, 51616856, 9480038, 0995721 #### [facility] [address] [place] [address] Calcium [Mass/Vol] 9.1 mg/dL Normal 8.9-11.1 [facility] Comment on above: Performed By: #### 1 4698179, 42487365, 9531457, 0752919 #### [facility] [address] [place] [address] Chloride [Moles/Vol] 107 mmol/L Normal 101-111 [facility] Comment on above: Performed By: #### 1 7709806, 64494154, 2683720, 0904348 #### [facility] [address] [place] [address] CO2 [Moles/Vol] 27 mmol/L Normal 21-31 [facility] Comment on above: Performed By: #### 1 6126172, 00618513, 0093065, 7766248 #### [facility] [address] [place] [address] Creatinine [Mass/Vol] 1.1 mg/dL Normal 0.5-1.3 [facility] Comment on above: Performed By: #### 1 6492042, 31179643, 0954063, 0052355 #### [facility] [address] [place] [address] Globulin (S) [Mass/Vol] 3.1 g/dL Normal 1.4-4.0 [facility] Comment on above: Performed By: #### 1 8329856, 13633886, 0222272, 4788935 #### [facility] [address] [place] [address] Glucose [Mass/Vol] 100 mg/dL Normal 55-199 [facility] Comment on above: Result Comment: If t his glucose result represents a fasting glucose, interpretation should refer to the following reference range: 55-99 mg/dL Performed By: #### 1 7588008, 64708553, 5308722, 6038538 #### [facility] [address] [place] [address] Potassium [Moles/Vol] 4.3 mmol/L Normal 3.5-5.3 [facility] Comment on above: Performed By: #### 1 3891346, 54163375, 1179586, 5452528 #### [facility] [address] [place] [address] Protein [Mass/Vol] 7.2 g/dL Normal 6.0-7.8 [facility] Comment on above: Performed By: #### 1 9683139, 90707452, 4077980, 7747716 #### [facility] [address] [place] [address] Sodium [Moles/Vol] 138 mmol/L Normal 135-145 [facility] Comment on above: Performed By: #### 1 3590919, 59687798, 9537081, 4799615 #### [facility] [address] [place] [address] Urea nitrogen [Mass/Vol] 20 mg/dL Normal 5-21 [facility] Comment on above: Performed By: #### 1 7244026, 26409478, 7291545, 1036303 #### [facility] [address] [place] [address] Urea nitrogen/Creatinine [Mass ratio] 18 No Units Normal 10-20 [facility] Comment on above: Performed By: #### 1 9796025, 54801861, 4528955, 5396530 #### [facility] [address] [place] [address] Lipid Panelon 02-10-2023 Cholesterol [Mass/Vol] 165 mg/dL Normal 120-200 [facility] Comment on above: Performed By: #### 1 9082722, 50289520, 1435758, 8756551 ####[facility] [address] [place] [address] Cholesterol in HDL [Mass/Vol] 54 mg/dL Invalid Interpretation Code [facility] Comment on above: Result Comment: HDL > or equal to 60 mg/dL: Low cardiovascular risk HDL < 40 mg/dL : High cardiovascular risk Performed By: #### 1 8086149, 23579336, 7302062, 4148887 ####[facility] [address] [place] [address] Cholesterol in LDL [Mass/Vol] 79 mg/dL Normal <=129 [facility] Comment on above: Performed By: #### 1 3941057, 37929090, 4266155, 6029770 ####[facility] [address] [place] [address] Cholesterol in VLDL [Mass/Vol] 19 mg/dL Normal 7-40 [facility] Comment on above: Performed By: #### 1 3070069, 76907068, 7115497, 4055690 ####[facility] [address] [place] [address] Triglyceride [Mass/Vol] 97 mg/dL Normal <=149 [facility] Comment on above: Performed By: #### 1 6090511, 67937211, 0225634, 6213653 ####[facility] [address] [place] [address] Nurse Consultation Noteon Nurse Consultation Note Reason for Visit Patient here for lab drawn Assessment/Plan Fatigue (R53.83: Other fatigue) Medications Augmentin 500 mg-125 mg Tab, 500 mg, Oral, q12hr dicyclomine 20 mg Tab, 20 mg= 1 tab(s), Oral, QID, PRN, 3 refills Handicap Placard, See Instructions meloxicam 7.5 mg Tab, 7.5 mg= 1 tab(s), Oral, BID, PRN, 11 refills Allergies CeleBREX (Unknown) Orudis (Unknown) Immunizations Vaccine Date Status Comments influenza virus vaccine, inactivated 07/26/2022 Recorded SARS-CoV-2 (COVID-19) mRNA BNT-162b2 vax 07/30/2021 Recorded 2022-12-02: [id number] SARS-CoV-2 (COVID-19) mRNA BNT-162b2 vax 11/10/2020 Recorded 2022-12-02: TPV70 SARS-CoV-2 (COVID-19) mRNA BNT-162b2 vax 10/20/2020 Recorded 2022-12-02: TPV70 influenza virus vaccine, inactivated 11/06/2019 Recorded influenza virus vaccine, inactivated 08/20/2018 Recorded influenza virus vaccine, inactivated 07/13/2016 Recorded influenza virus vaccine, inactivated 08/08/2014 Recorded influenza virus vaccine, inactivated 08/07/2013 Recorded Normal [facility] PSA Screen, Totalon 02-11-20 Prostate specific Ag [Mass/Vol] 26.2 ng/mL High 0.1-3.5 [facility] Comment on above: Result Comment: The concentration of PSA determined by different manufacturers can vary due to differences in assay methods and reagent specificity. Values obtained from different assay methods cannot be used interchangeably. The methodology used for this result was chemiluminescence using [employer] Access Hybritech PSA reagent. Performed By: #### 1 [id number], [id number], [id number] #### [facility] [address] [place] [address] eGFRon 02-10-2023 GFR/1.73 sq M.predicted among non-blacks MDRD (S/P/Bld) [Vol rate/Area] 70 mL/min/1.73 m2 Normal >=59 [facility] Comment on above: Order Comment: Order added by Discern Expert. Result Comment: Police Artist pako kidney disease could be indicated at eGFR's of less than 60 mL/min/1.73m2. Kidney failure is indicated at less than 15 mL/min/1.73m2. Performed By: #### 1 [id number], [id number], [id number], [id number] ####[facility] [address] [place] [address] [facility] Office/Clini c Noteon 02-08-2023 Family Medicine Office/Clinic Note Chief Complaint follow up and meds check HPI Staff Follow up arthritis and meds check Health Maintenance: Colonoscopy: never refuses PSA: unsure Last Labs: unsure covid:UTD questions/concerns: History of Present Illness INFLAMMATRORY POLYARTHROPATHY. OSTEOARTHRITIS OF THE HIPS AND FOLLOWED WITH INFECTION AND STILL HAVING A LOT OF PAIN Review of Systems PHQ Score Initial Depression Screen Score: 0 SEE [place] Constitutional: no fever, no chills, no sweats, no weakness Respiratory: no shortness of breath, no cough, no orthopnea, no wheezing Cardiovascular: no chest pain, no palpitations, no edema Additional ROS info: Except as noted in the above Review of Systems and in the History of Present Illness all other systems have been reviewed and are negative or noncontributory. Physical Exam Vitals & Measurements HR: 70(Peripheral) RR: 16 BP: 150/78 SpO2: 99% HT: 73 in HT: 185.42 cm WT: 97.1 kg WT: 213.62 lb BMI: 28.24 General: alert, no acute distress Skin: warm, dry Head: no trauma, normocephalic Neck: Trachea midline, no adenopathy, no tenderness Eye: normal conjunctiva, sclera clear ENMT: TM's clear, oral mucosa moist, no pharyngeal erythema or exudate Cardiovascular: regular rate and rhythm, normal peripheral perfusion Respiratory: Lungs CTA, respirations non labored Chest wall: no deformity. Gastrointestinal: soft, non distended, no tenderness, no guarding. Back: No tenderness, Normal ROM, Normal alignment. Extremities: no deformity, no trauma POOR ROM LEFT HIP WITH PAIN Neurological: oriented x 4, LOC appropriate for age, CN II-XII intact, motor strength equal & normal bilaterally, sensation equal & normal bilaterally, speech normal Psychiatric: cooperative, affect appropriate for age, normal judgement, normal psychiatric thoughts. Assessment/Plan CHECK BLOOD WORK. RECOMMEND POOL THERAPY FOR THE HIP PAIN. DIET AND EXERCISE EXPLAINED. RTO PRN EXPLAINED. POSSIBLE ACCUPUNCTURE FOR THE HIP PAIN. MELOXICAM DOES HELP THE PAIN AND WANTS TO STAY ON IT., PROPER USE EXPLAIEND WITH MAJOR RISK AND BENEFITS EXPLAINED. 1. Fatigue (R53.83: Other fatigue) Ordered: CBC w/ Auto Diff Comprehensive Metabolic Panel Lipid Panel PSA Screen, Total 2. Elevated cholesterol (E78.00: Pure hypercholesterolemia, unspecified) Ordered: CBC w/ Auto Diff Comprehensive Metabolic Panel Lipid Panel PSA Screen, Total 3. Prostatic disorder (N42.9: Disorder of prostate, unspecified) Ordered: CBC w/ Auto Diff Comprehensive Metabolic Panel Lipid Panel PSA Screen, Total Orders: Body Mass Index (BMI) documented 3008F Current tobacco non-user 1036F Depression Screening Negative 3352F Influenza immunization administered or previously received 4274F Most recent diastolic blood pressure <80 mm Hg 3078F Most recent systolic blood pressure >= 140 mm Hg 3077F Patient screen for fall risk: no falls in last year or 1 fall with no injury in last year 1101F Follow-up No qualifying data available Problem List/Past Medical History Ongoing BMI 28.0-28.9,adult Hip pain Inflammatory 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 Medications Augmentin 500 mg-125 mg Tab, 500 mg, Oral, q12hr dicyclomine 20 mg Tab, 20 mg= 1 tab(s), Oral, QID, PRN, 3 refills Handicap Placard, See Instructions meloxicam 7.5 mg Tab, 7.5 mg= 1 tab(s), Oral, BID, PRN, 11 refills Allergies CeleBREX (Unknown) Orudis (Unknown) Social History Alcohol - Low Risk, 12/02/2022 Other Substance Abuse - Denies Substance Abuse, 12/02/2022 Tobacco - Denies Tobacco Use, 12/02/2022 Former smoker, quit more than 30 days ago Tobacco Use:. Cigarettes, Cigars, 02/08/2023 Family History Heart disease: Mother and Father. Hypertension: Mother. Primary malignant neoplasm of colon: Father. Primary malignant neoplasm of female breast: Mother. Immunizations Vaccine Date Status Comments influenza virus vaccine, inactivated 07/26/2022 Recorded SARS-CoV-2 (COVID-19) mRNA BNT-162b2 vax 07/30/2021 Recorded 2022-12-02: TPV70 SARS-CoV-2 (COVID-19) mRNA BNT-162b2 vax 11/10/2020 Recorded 2022-12-02: TPV70 SARS-CoV-2 (COVID-19) mRNA BNT-162b2 vax 10/20/2020 Recorded 2022-12-02: TPV70 influenza virus vaccine, inactivated 11/06/2019 Recorded influenza virus vaccine, inactivated 08/20/2018 Recorded influenza virus vaccine, inactivated 07/13/2016 Recorded influenza virus vaccine, inactivated 08/08/2014 Recorded influenza virus vaccine, inactivated 08/07/2013 Recorded [facility] Comment on above: Result Comment: Elec tronically Signed By: JENNY MCGREGOR, UDAY Stoll\.br\Date and Time Signed: 02/08/23 11:55 EDT 36on 01-30-2023 36 Call to Arabella to inform the schedule is not out that far. Suggests she call back next month. Voiced understanding. [facility] 36 Patient needs schedu led for first week in April or End of March. Blood work is usually ordered in [employer] before appointment as well so it can be reviewed. Please call Arabella back to get this scheduled. Thank you. [facility] Office Visiton 12-02-2022 Follow-up visit [id number] Daniel Aguilar 1945 M Date Provider Department Center 12/02/2022 JUAN RAMON THOMAS MP ORTHO [facility] No family history on file Level of Service:76367 RI OFFICE/OUTPATIENT ESTABLISHED MOD MDM 30-39 MIN Reason for Visit and Comments: Follow-up [316045] Pain [136] [facility] Outside Recordson 11-23-2022 Outside Records [id number] Normal [facility] CRPon 10-10-2022 CRP [Mass/Vol] mg/L Normal <=1.0 [facility] Comment on above: Performed By: #### C RP #### [facility] [place] [facility] [address] [address] [address] Lissett Britton SED RATE WESTERGRENon 2022 SED RATE 6 mm/hr Normal <=20 [facility] Comment on above: Performed By: #### S EDR #### [facility] [place] [facility] [address] [address] [address] Lissett Britton XR lumbar spine AP/LAT/FLX/E XTon 08-23-2022 XR lumbar spine AP/LAT/FLX/[place] [address] XRay Report Signed Patient: Jhonathan Aguilar MR#: [id number] : 1945 Acct:[id number] Age/Sex: 76 / M ADM Date: 08/23/22 Loc: XD Room: Type: [facility] Attending Dr: Kilo Harkins MD Copies to: Kilo Harkins MD Ordering Provider: Kilo Harkins MD Date of Service: 08/23/22 XR/XR lumbar spine AP/LAT/FLX/EXT: M43.16 Lumbar spine 4 views Reason for exam: Follow-up lumbar surgery in 2019. COMPARISON: Lumbar spine 08/18/2021. FINDINGS: Posterior hardware fusion of L1-L4 without evidence of hardware complication. Vertebral body remaining disc space heights appear maintained. Facet joint degenerative changes L5-S1. No pathological motion. XR/XR lumbar spine AP/LAT/FLX/EXT IMPRESSION: No evidence of hardware competition. Impression dictated by: Jose A Shea Jr., D.O.08/23/2022 12:26 PM Dictation Location: [place] [address] Transcribed By: [facility] 08/23/22 1226 Dictated By: Jose A Shea Jr, DO 08/23/22 1222 Signed By: 08/23/22 1226 [facility] Covid-19 PCR (CVDTBH)on 06-18 SARS-CoV-2 (COVID-19) RNA DANILO+probe Ql (Unsp spec) Not detected Normal NOT DETECTED [facility] Comment on above: Result Comment: This test is not yet approved or cleared by the [place] FDA. When there are no FDA-approved or cleared tests available, and other criteria are met, FDA can make tests available under an emergency access mechanism called an Emergency Use Authorization (EUA). The EUA for this test is supported by the [place] of Health and Human Service's (HHS's) declaration that circumstances exist to justify the emergency use of in vitro diagnostics for the detection and/or diagnosis of the virus that causes COVID-19. This EUA will remain in effect (meaning this test can be used) for the duration of the COVID-19 declaration justifying emergency of IVDs, unless it is terminated or revoked by FDA (after which the test may no longer be used). When diagnostic testing is negative, the possibility of a false negative should be considered in the context of a patient's recent exposures and the presence of clinical signs and symptoms consistent with SARS-CoV-2. Performed By: #### C VDTBH #### [facility] [address] [place] [address] Dr. Lissett Britton MRSA NARES #1on 07-04-2022 MRSA NARES #1 Culture Observations : NO GROWTH OF MRSA AT 48 HOURS. Normal [facility] Comment on above: Performed By: #### M RSAN1 #### [facility] [address] [place] [address] Dr. Lissett Britton CRPon 05-24-2022 CRP [Mass/Vol] mg/L Normal <=1.0 [facility] Comment on above: Performed By: #### S EDR #### [facility] [place] [facility] [address] [place] [address] Dr. Lissett Britton SED RATE WESTERGRENon 2021 SED RATE 17 mm/hr Normal <=20 [facility] Comment on above: Performed By: #### S EDR #### [facility] [place] [facility] [address] [place] [address] Dr. Lissett Britton HIP LEFT 1 OR 2 VWS WITH PEL VISon 04-01-2022 HIP LEFT 1 OR 2 VWS WITH PELVIS [facility] Department of Radiology [address] [place] [phone] Patient Name: JHONATHAN AGUILAR : 1945 Sex: M Age: Race: White Pt. 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 COMPARISON: 12/03/2021 FINDINGS: Stable appearance and alignment of the left hip arthroplasty device. There is lumbar fusion hardware noted. There is degenerative changes of the right hip. IMPRESSION: Stable appearance of the left hip arthroplasty without new or acute process. Electronically signed: Yaneli Wallace. Transcribed by: [email or web address], User Resident: Electronically Signed by: YANELI WALLACE @ 04/03/2022 06:52 AM Normal [facility] Comment on above: Order Comment: Evalu ate CBC AUTO DIFFon 02-08-2022 BASO # 0.0 103/ul Normal 0.0-0.1 [facility] Comment on above: Performed By: #### C BC #### [facility] [place] [facility] [address] [address] [address] Lissett Britton Basophils/100 WBC (Bld) 0.8 % Normal 0.2-2.0 [facility] Comment on above: Performed By: #### C BC #### [facility] [place] [facility] [address] [address] [address] Lissett Britton EO # 0.3 103/ul Normal 0.0-0.7 [facility] Comment on above: Performed By: #### C BC #### [facility] [place] [facility] [address] [address] [address] Lissett Britton Eosinophils/100 WBC (Bld) 5.8 % Normal 0.9-7.0 [facility] Comment on above: Performed By: #### C BC #### [facility] [address] [address] [address] Lissett Britton Erythrocyte distribution width (RBC) [Ratio] 13.0 % Normal 11.0-15.0 [facility] Comment on above: Performed By: #### C BC #### [facility] [place] [facility] [address] [address] [address] Lissett Britton Hematocrit (Bld) [Volume fraction] 43.5 % Normal 42.0-54.0 [facility] Comment on above: Performed By: #### C BC #### [facility] [address] [address] [address] Lissett Britton Hemoglobin (Bld) [Mass/Vol] 14.5 g/dL Normal 14.0-18.0 [facility] Comment on above: Performed By: #### C BC #### [facility] [address] [address] [address] Lissett Britton IG # 0.01 10e3/ul Normal 0.00-0.03 [facility] Comment on above: Performed By: #### C BC #### [facility] [address] [place] [address] Dr. Lissett Britton IG % 0.2 % Normal 0.0-0.5 [facility] Comment on above: Performed By: #### C BC #### [facility] [address] [place] [address] Dr. Lissett Britton LYMPH # 1.8 103/ul Normal 1.2-3.8 [facility] Comment on above: Performed By: #### C BC #### [facility] [address] [place] [address] Dr. Lissett Britton Lymphocytes/100 WBC (Bld) 36.6 % Normal 20.5-60.0 [facility] Comment on above: Performed By: #### C BC #### [facility] [place] [facility] [address] [place] [address] Dr. Lissett Britton MANUAL DIFF REQ NO Normal [facility] Comment on above: Performed By: #### C BC #### [facility] [address] [place] [address] Dr. Lissett Britton MCH (RBC) [Entitic mass] 31.6 pg Normal 25.9-34.0 [facility] Comment on above: Performed By: #### C BC #### [facility] [address] [place] [address] Dr. Lissett Britton MCHC (RBC) [Mass/Vol] 33.3 g/dL Normal 29.9-35.2 [facility] Comment on above: Performed By: #### C BC #### [facility] [address] [place] [address] Dr. Lissett Britton MCV (RBC) [Entitic vol] 94.8 fL Critically high 80.0-94.0 [facility] Comment on above: Performed By: #### C BC #### [facility] [address] [place] [address] Dr. Lissett Britton MONO # 0.4 103/ul Normal 0.3-0.8 [facility] Comment on above: Performed By: #### C BC #### [facility] [address] [place] [address] Dr. Lissett Britton Monocytes/100 WBC (Bld) 8.6 % Normal 1.7-12.0 [facility] Comment on above: Performed By: #### C BC #### [facility] [address] [place] [address] Dr. Lissett Britton NEUT # 2.3 103/ul Normal 1.4-6.5 [facility] Comment on above: Performed By: #### C BC #### [facility] [address] [place] [address] Dr. Lissett Britton Neutrophils/100 WBC (Bld) 48.0 % Normal 43.0-75.0 [facility] Comment on above: Performed By: #### C BC #### [facility] [address] [place] [address] Dr. Lissett Britton Platelet mean volume (Bld) [Entitic vol] 9.0 fL Critically low 9.5-13.5 [facility] Comment on above: Performed By: #### C BC #### [facility] [address] [place] [address] Dr. Lissett Britton PLT 157 103/ul Normal 150-450 [facility] Comment on above: Performed By: #### C BC #### [facility] [address] [place] [address] Dr. Lissett Britton RBC 4.59 106/ul Critically low 4.70-6.10 [facility] Comment on above: Performed By: #### C BC #### [facility] [address] [place] [address] Dr. Lissett Britton WBC 4.9 103/ul Normal 4.0-11.0 [facility] Comment on above: Performed By: #### C BC #### [facility] [address] [place] [address] Dr. Lissett Britton CRPon 02-07-2022 CRP [Mass/Vol] mg/L Normal <=1.0 [facility] Comment on above: Performed By: #### C RP #### [facility] [address] [place] [address] Dr. Lissett Britton PROTIMEon 02-07-2022 INR Coag (PPP) [Relative time] 0.96 {INR} Normal [facility] Comment on above: Performed By: #### P TT, PT #### [facility] [address] [place] [address] Dr. Lissett Britton INR GUIDELINES SEE BELOW Normal [facility] Comment on above: Result Comment: ROSENDO RED INR: 2.0 - 3.0 CONDITIONS NOT LISTED BELOW 2.5 - 3.5 FOR PROSTHETIC HEART VALVE REPLACEMENT 2.5 - 3.5 RECURRENT THROMBOSIS Performed By: #### P TT, PT #### [facility] [address] [place] [address] Dr. Lissett Britton PT Coag (PPP) [Time] 10.4 s Normal 9.0-11.6 [facility] Comment on above: Performed By: #### P TT, PT #### [facility] [address] [place] [address] Dr. Lissett Britton PTTon 02-07-2022 aPTT Coag (Bld) [Time] 26.9 s Normal 22.3-36.2 [facility] Comment on above: Performed By: #### P TT, PT #### [facility] [address] [place] [address] Dr. [facility]issett Britt[facility] 14 mm/hr Normal <=20 [facility] Comment on above: Performed By: #### S EDR #### [facility] [address] [place] [address] Dr. Lissett Britton *ANAEROBIC CULTUREon 022 *ANAEROBIC CULTURE Clinical Report: (D) Specimen: SWAB Collected: 12/16/2021 09:00 Status: Final Last Updated: 12/21/2021 08:31 ISO (Final) No Anaerobes Isolated Day [address] [facility] Comment on above: Performed By: #### 3 0312 #### [facility] [address] *BODY FLUID CULTUREon 2021 *BODY FLUID CULTURE Clinical Report: (D) Specimen/Source: FLUID/HIP Collected: 12/16/2021 09:00 Status: Final Last Updated: 12/19/2021 06:53 (1) L. HIP GRAM (Final) Quantity Not Sufficient ISO (Final) Enterococcus faecalis Light Growth Results called. Read back by Dr. Cano (Ortho) 11:15 a.m. 12/18/21 ISOLATE: Enterococcus faecalis CONSUELO (mcg/ml) AMPICILLIN (AM) 1 Susceptible VANCOMYCIN (VA) 1 Susceptible Normal [facility] Comment on above: Order Comment: Florence ESTRELLA P Performed By: #### 3 0318 #### [address] ASPIRATION LARGE JOINTon ASPIRATION LARGE JOINT [facility] Department of Radiology [address] [place] [phone] Patient Name: JHONATHAN AGUILAR : 1945 Sex: M Age: Race: White Pt. 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 Mora and Dr. Shane - 8 seconds of fluoro time 1 image 1 mGy Patient complains of left hip pain for a couple of months with history of hip replacement about six years ago. QUESTION FOR THE RADIOLOGIST: , Appointment Date: 12/16/2021 , Body Part: Hip , Side: LEFT , Appointment Date: 12/16/2021 , Body Part: Hip , Side: LEFT TECHNIQUE: Diagnostic aspiration of the left hip joint under fluoroscopic guidance. Procedure and Findings: Risks, benefits, indications, and alternatives to the procedure were explained to the patient. Risks include bleeding and infection. All questions were answered. Both written and verbal informed consent was obtained. Patient was placed in the supine position on the fluoroscopic table. Suitable site, at the appropriate area of interest, was marked using fluoroscopic guidance and overlying skin prepped and draped in usual sterile fashion. 5 mL Lidocaine 1% was used for local and deep anesthesia. A 22-gauge 3-1/2 inch spinal needle was advanced under fluoroscopic guidance. Location was confirmed via spontaneous return of intra-articular fluid. Roughly 2 mL of fluid was aspirated from the left hip joint and sent for pathology. Fluoroscopy time: 8 seconds. Total cumulative dose [address] Shane was present for the entire procedure. IMPRESSION: * Successful left hip joint aspiration. Patient tolerated well, no complications. Approved by:Saw Tatum12/16/2021 10:55 AM. I, Rosemary Shane,have reviewed the image(s) and agree with the findings in this report. Electronically signed: Rosemary Shane. Transcribed by: [email or web address], User Resident: ROSEMARY MORA Electronically Signed by: ROSEMARY SHANE @ 12/16/2021 11:09 AM I personally read this/these film(s) with this resident Normal [facility] Comment on above: Order Comment: , Joshua ointment Date: 12/16/2021 , Body Part: Hip , Side: LEFT , Appointment Date: 12/16/2021 , Body Part: Hip , Side: LEFT HIP LEFT 1 OR 2 VWS WITH PEL VISon 12-03-2021 HIP LEFT 1 OR 2 VWS WITH PELVIS [facility] Department of Radiology [address] [place] [phone] Patient Name: JHONATHAN AGUILAR : 1945 Sex: M Age: Race: White Pt. 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 COMPARISON: CT pelvis 11/29/2021 FINDINGS: No acute fracture or dislocation. There is redemonstrated lucencies at the left bony acetabulum adjacent to the acetabular cup prosthesis. There is no evidence of periprosthetic fracture or loosening of the stem component of the left total hip arthroplasty. Pelvic ring is intact. There is left greater than right degenerative changes in the SI joint. Right hip DJD is noted. There is heterotopic ossification near the expected insertion of the right hamstring muscles. Heterotopic ossification is noted near the superior aspect of the left acetabulum. Visualized lumbar fusion hardware. IMPRESSION: * Rounded lucencies adjacent to the left prosthetic acetabular cup. Relatively nonspecific finding on radiograph, which may indicate prosthetic loosening or prior subchondral cysts. There are no remote prior images for comparison. Refer to recent CT for further characterization. Approved by:Saw Tatum12/03/2021 1:50 PM. I, Karuna Seymour,have reviewed the image(s) and agree with the findings in this report. Electronically signed: Karuna Seymour. Transcribed by: [email or web address], User Resident: SAW MORA Electronically Signed by: KARUNA SEYMOUR @ 12/03/2021 03:03 PM I personally read this/these film(s) with this resident Normal [facility] Comment on above: Order Comment: Evalu ate C REACTIVE PROTEINon 022 CRP [Mass/Vol] 37.5 mg/L High 0.0-7.[address] [facility] Comment on above: Performed By: #### 6 1405 #### [facility] [address] CBC W/DIFFon 11-29-2021 ABS IMM GRANS 0.0 10*3/uL Normal 0.0-0.[address] [facility] Comment on above: Performed By: #### 5 0103, 90120 #### [facility] [address] ABS NEUTROPHILS 4.8 10*3/uL Normal 1.6-7.[address] [facility] Comment on above: Performed By: #### 5 0103, 72526 #### [facility] [address] [place] [address], [facility] Basophils (Bld) [#/Vol] 0.0 10*3/uL Normal 0.0-0.[address] [facility] Comment on above: Performed By: #### 5 102, 47280 #### [facility] [address] [place] [address], [facility] Basophils/100 WBC (Bld) 0.6 % Normal 0.0-1.[address] [facility] Comment on above: Performed By: #### 5 102, 59192 #### [facility] [address] [place] [address], [facility] Eosinophils (Bld) [#/Vol] 0.1 10*3/uL Normal 0.0-0.[address] [facility] Comment on above: Performed By: #### 102, 29419 #### [facility] [address] [place] [address], [facility] Eosinophils/100 WBC (Bld) 1.0 % Normal 0.0-6.[address] [facility] Comment on above: Performed By: #### 5 102, 60179 #### [facility] [address] [place] [address], [facility] Erythrocyte distribution width (RBC) [Ratio] 14.4 % Normal 11.5-15.[address] [facility] Comment on above: Performed By: #### 5 102, 73136 #### [facility] [address] [facility] [place] [address], [facility] Hematocrit (Bld) [Volume fraction] 42.8 % Normal 39.0-50.[address] [facility] Comment on above: Performed By: #### 5 102, 15965 #### [facility] [address] [place] [address], [facility] Hemoglobin (Bld) [Mass/Vol] 14.6 g/dL Normal 13.0-17.[address] [facility] Comment on above: Performed By: #### 5 102, 13252 #### [facility] [address] [facility] [place] [address], [facility] IMM PLATELET FRAC 7.5 % High 0.8-6.[address] [facility] Comment on above: Performed By: #### 5 102, 73830 #### [facility] [address] [place] [address], [facility] IMMATURE GRANS 0.3 % Normal 0.0-1.[address] [facility] Comment on above: Performed By: #### 5 102, 04807 #### [facility] [address] [facility] [place] [address], [facility] Lymphocytes (Bld) [#/Vol] 1.5 10*3/uL Normal 1.2-4.[address] [facility] Comment on above: Performed By: #### 5 102, 98554 #### [facility] [address] [facility] [address] Lymphocytes/100 WBC (Bld) 21.6 % Normal 20.0-45.[address] [facility] Comment on above: Performed By: #### 5 102, 61932 #### [facility] [address] [facility] [place] [address], [facility] MCH (RBC) [Entitic mass] 31.7 pg Normal 27.0-33.[address] [facility] Comment on above: Performed By: #### 5 102, 91220 #### [facility] [address] [facility] [place] [address], [facility] MCHC (RBC) [Mass/Vol] 34.1 g/dL Normal 32.0-35.[address] [facility] Comment on above: Performed By: #### 102, 14951 #### [facility] [address] [place] [address], [facility] MCV (RBC) [Entitic vol] 93.0 fL Normal 82.0-98.[address] [facility] Comment on above: Performed By: #### 5 102, 67707 #### [facility] [address] [place] [address], [facility] Monocytes (Bld) [#/Vol] 0.4 10*3/uL Normal 0.1-1.[address] [facility] Comment on above: Performed By: #### 5 102, 86979 #### [facility] [address] [place] [address], [place] MONOS 6.2 % Normal 5.0-12.[address] [facility] Comment on above: Performed By: #### 5 102, 58047 #### [facility] [address] [place] [address], [place] Neutrophils/100 WBC (Bld) 70.3 % Normal 40.0-72.[address] [facility] Comment on above: Performed By: #### 5 102, 35601 #### [facility] [address] [place] [address], [facility] Nucleated RBC/100 WBC (Bld) [Ratio] 0 % Normal 0-[address] [facility] Comment on above: Performed By: #### 5 102, 03614 #### [facility] [address] [place] [address], [place] PLAT CNT 124 10*3/uL Low 150-[address] [facility] Comment on above: Performed By: #### 5 102, 35949 #### [facility] [address] [place] [address], [place] RBC (Bld) [#/Vol] 4.60 10*6/uL Normal 4.20-5.[address] [facility] Comment on above: Performed By: #### 102, 78167 #### [facility] [address] [place] [address], [place] WBC (Bld) [#/Vol] 6.82 10*3/uL Normal 4.00-10.[address] [facility] Comment on above: Performed By: #### 5 0103, 84854 #### [address] [address], [facility] CT PELVIS WO CONTRASTon 11-16 CT PELVIS WO CONTRAST [facility] Department of Radiology [address] [place] [address] Patient Name: JHONATHAN AGUILAR : 1945 Sex: M Age: Race: White Pt. Location: Patient Status: O Ordered Date: 11/29/2021 11:55:00 AM Completed Date: 11/29/2021 01:53 PM Requesting Provider: JAXSON RUDOLPH Attending Provider: JAXSON RUDOLPH Report Copy To: UDAY WILSON Signs & Symptoms: M25.552 Pain in left hip I10 History: [place] Call results to [id number] PT to go home after CT Comments: , Height (ft.): 5 ft 10 in , Weight (lbs): 206 , Height (ft.): 5 ft 10 in , Weight (lbs): 206 , , , Ordering Provider - JAXSON RUDOLPH MD , Exam: CT PELVIS WO CONTRAST CT PELVIS WO CONTRAST 11/29/2021 1:53 PM CLINICAL INDICATIONS: M25.552 Pain in left hip I10 TECHNIQUE: Multidetector CT axial slices of the pelvis without IV contrast. Multiplanar reformats were performed and viewed on a separate workstation and reviewed to further define anatomy and possible pathology. All CT scans at this facility use dose modulation, iterative reconstruction, and/or weight based dosing when appropriate to reduce radiation dose to as low as reasonably achievable COMPARISON: None. FINDINGS: Significant calcifications involving the hamstring tendons likely related to chronic tendinopathy and/or prior tears. Severe degenerative changes of the right hip and pubic symphysis. There is a left hip arthroplasty noted. Minimal lucency adjacent to the femoral stem of the prosthesis could relate to mild loosening. Thin lucency adjacent to the acetabular component of the hip prosthesis as well as some prior subchondral cyst formation. Heterotopic ossification noted. Severe degenerative changes of the sacroiliac joints and lumbosacral spine with evidence of prior lumbar spine surgery. Enthesophyte formation is noted. Atrophy of the pelvic musculature. Incidental note of scrotal hydroceles right greater than left. Chondrocalcinosis in atherosclerotic calcifications are identified. IMPRESSION: 1. Left total hip arthroplasty noted with some periprosthetic lucencies adjacent to the acetabular cup and femoral stem which could relate to loosening. Subchondral lucencies in the left acetabulum could relate to prior subchondral cystic changes due to arthritis. Please see above for further details. Electronically signed: Myriam Haas. Transcribed by: [email or web address], User Resident: Electronically Signed by: MYRIAM HAAS @ 11/29/2021 02:00 PM Normal [facility] Comment on above: Order Comment: , Hei ght (ft.): 5 ft 10 in , Weight (lbs): 206 , Height (ft.): 5 ft 10 in , Weight (lbs): 206 , , , Ordering Provider - JAXSON RUDOLPH MD , SEDIMENTATION RATEon 022 SED RATE 10 mm/hr Normal 0-10 [facility] Comment on above: Performed By: #### 5 0103, 55235 #### [facility] [address] Vital Signs Date Time Vital Sign Value Performing Clinician Facility 09-15-2023 08:53-0500 Blood Pressure Location [facility] 09-15-2023 08:53-0500 Body temperature 97.16 [degF] [facility] 09-15-2023 08:53-0500 Diastolic blood pressure 78 mm[Hg] [facility] 09-15-2023 08:53-0500 Heart rate 74 /min [facility] 09-15-2023 08:53-0500 Systolic blood pressure 128 mm[Hg] [facility] 08-28-2023 08:58-0500 Blood Pressure Location [facility] 08-28-2023 08:58-0500 Diastolic blood pressure 79 mm[Hg] [facility] 08-28-2023 08:58-0500 Heart rate 74 /min [facility] 08-28-2023 08:58-0500 Respiratory rate 16 /min [facility] 08-28-2023 08:58-0500 Systolic blood pressure 135 mm[Hg] [facility] 08-09-2023 09:43-0500 Body temperature 97 [degF] IJEOMA Ruiz MD Work Phone: [facility] 08-09-2023 09:43-0500 Body weight 96.62 kg IJEOMA Ruiz MD Work Phone: [facility] 08-09-2023 09:43-0500 Diastolic blood pressure 73 mm[Hg] IJEOMA Ruiz MD Work Phone: [facility] 08-09-2023 09:43-0500 Heart rate 58 /min IJEOMA Ruiz MD Work Phone: [facility] 08-09-2023 09:43-0500 Respiratory rate 16 /min IJEOMA Ruiz MD Work Phone: [facility] 08-09-2023 09:43-0500 SaO2% (BldA) [Mass fraction] 98 % IJEOMA Ruiz MD Work Phone: [facility] 08-09-2023 09:43-0500 Systolic blood pressure 147 mm[Hg] IJEOMA Ruiz MD Work Phone: [facility] 05-29-2023 08:52-0400 Body temperature 96.69 [degF] IJEOMA Ruiz MD Work Phone: [facility] 05-29-2023 08:52-0400 Body weight 95.25 kg IJEOMA Ruiz MD Work Phone: [facility] 05-29-2023 08:52-0400 Diastolic blood pressure 71 mm[Hg] IJEOMA Ruiz MD Work Phone: [facility] 05-29-2023 08:52-0400 Heart rate 72 /min IJEOMA Ruiz MD Work Phone: [facility] 05-29-2023 08:52-0400 Respiratory rate 18 /min IJEOMA Ruiz MD Work Phone: [facility] 05-29-2023 08:52-0400 SaO2% (BldA) [Mass fraction] 97 % IJEOMA Ruiz MD Work Phone: [facility] 05-29-2023 08:52-0400 Systolic blood pressure 144 mm[Hg] IJEOMA Ruiz MD Work Phone: [facility] 05-23-2023 08:35-0400 Body temperature 97.5 [degF] IJEOMA Ruiz MD Work Phone: [facility] 05-23-2023 08:35-0400 Body weight 93.89 kg IJEOMA Ruiz MD Work Phone: [facility] 05-23-2023 08:35-0400 Diastolic blood pressure 74 mm[Hg] IJEOMA Ruiz MD Work Phone: [facility] 05-23-2023 08:35-0400 Heart rate 70 /min IJEOMA Ruiz MD Work Phone: [facility] 05-23-2023 08:35-0400 Respiratory rate 16 /min IJEOMA Ruiz MD Work Phone: [facility] 05-23-2023 08:35-0400 SaO2% (BldA) [Mass fraction] 98 % IJEOMA Ruiz MD Work Phone: [facility] 05-23-2023 08:35-0400 Systolic blood pressure 165 mm[Hg] IJEOMA Ruiz MD Work Phone: [facility] 05-16-2023 08:41-0400 Body temperature 97 [degF] IJEOMA Ruiz MD Work Phone: [facility] 05-16-2023 08:41-0400 Body weight 94.8 kg IJEOMA Ruiz MD Work Phone: [facility] 05-16-2023 08:41-0400 Heart rate 59 /min IJEOMA Ruiz MD Work Phone: [facility] 05-16-2023 08:41-0400 Respiratory rate 16 /min IJEOMA Ruiz MD Work Phone: [facility] 05-16-2023 08:41-0400 SaO2% (BldA) [Mass fraction] 98 % IJEOMA Ruiz MD Work Phone: [facility] 05-08-2023 08:44-0400 Body temperature 97.39 [degF] IJEOMA Ruiz MD Work Phone: [facility] 05-08-2023 08:44-0400 Body weight 93.89 kg IJEOMA Ruiz MD Work Phone: [facility] 05-08-2023 08:44-0400 Diastolic blood pressure 84 mm[Hg] IJEOMA Ruiz MD Work Phone: [facility] 05-08-2023 08:44-0400 Heart rate 68 /min IJEOMA Ruiz MD Work Phone: [facility] 05-08-2023 08:44-0400 Respiratory rate 18 /min IJEOMA Ruiz MD Work Phone: [facility] 05-08-2023 08:44-0400 SaO2% (BldA) [Mass fraction] 97 % IJEOMA Ruiz MD Work Phone: [facility] 05-08-2023 08:44-0400 Systolic blood pressure 172 mm[Hg] IJEOMA Ruiz MD Work Phone: [facility] 05-01-2023 09:18-0400 Body temperature 96.69 [degF] IJEOMA Ruiz MD Work Phone: [facility] 05-01-2023 09:18-0400 Body weight 94.8 kg IJEOMA Ruiz MD Work Phone: [facility] 05-01-2023 09:18-0400 Diastolic blood pressure 80 mm[Hg] IJEOMA Ruiz MD Work Phone: [facility] 05-01-2023 09:18-0400 Heart rate 61 /min IJEOMA Ruiz MD Work Phone: [facility] 05-01-2023 09:18-0400 Respiratory rate 18 /min IJEOMA Ruiz MD Work Phone: [facility] 05-01-2023 09:18-0400 SaO2% (BldA) [Mass fraction] 98 % IJEOMA Ruiz MD Work Phone: [facility] 05-01-2023 09:18-0400 Systolic blood pressure 158 mm[Hg] IJEOMA Ruiz MD Work Phone: [facility] 04-05-2023 13:51-0400 Body height 181 cm IJEOMA Ruiz MD Work Phone: [facility] 04-05-2023 13:51-0400 Body temperature 97.5 [degF] IJEOMA Ruiz MD Work Phone: [facility] 04-05-2023 13:51-0400 Body weight 94.8 kg IJEOMA Ruiz MD Work Phone: [facility] 04-05-2023 13:51-0400 Diastolic blood pressure 89 mm[Hg] IJEOMA Ruiz MD Work Phone: [facility] 04-05-2023 13:51-0400 Heart rate 78 /min IJEOMA Ruiz MD Work Phone: [facility] 04-05-2023 13:51-0400 Respiratory rate 18 /min IJEOMA Ruiz MD Work Phone: [facility] 04-05-2023 13:51-0400 SaO2% (BldA) [Mass fraction] 98 % IJEOMA Ruiz MD Work Phone: [facility] 04-05-2023 13:51-0400 Systolic blood pressure 145 mm[Hg] IJEOMA Ruiz MD Work Phone: [facility] 03-27-2023 09:46-0400 Blood Pressure Location [facility] 03-27-2023 09:46-0400 Diastolic blood pressure 88 mm[Hg] [facility] 03-27-2023 09:46-0400 Heart rate 90 /min [facility] 03-27-2023 09:46-0400 Respiratory rate 16 /min [facility] 03-27-2023 09:46-0400 Systolic blood pressure 138 mm[Hg] [facility] 03-01-2023 09:02-0400 Blood Pressure Location [facility] 03-01-2023 09:02-0400 Diastolic blood pressure 73 mm[Hg] [facility] 03-01-2023 09:02-0400 Heart rate 63 /min [facility] 03-01-2023 09:02-0400 Systolic blood pressure 134 mm[Hg] [facility] 08-24-2021 10:00-0500 Body height 180.34 cm Kilo Harkins Other [employer] Other 08-24-2021 10:00-0500 Body mass index (BMI) [Ratio] 29.01 kg/m2 Kilo Harkins Other [employer] Other 08-24-2021 10:00-0500 Body weight 94.35 kg Kilo Harkins Other [facility] Other 08-24-2021 10:00-0500 Diastolic blood pressure 72 mm[Hg] Kilo Harkins Other [facility] [facility] Other 08-24-2021 10:00-0500 Systolic blood pressure 138 mm[Hg] Kilo Harkins Other [employer] Other Encounters Encounter Date Encounter Type Care Provider Facility Start: 02-19-2024 ambulatory Miguelito StollGuillermina Ja Facility :[facility] Start: 12-11-2023 ambulatory [facility] Start: 10-23-2023 End: 10-24-2023 ambulatory JUAN RAMON GODFREY [facility] Start: 10-05-2023 End: 10-05-2023 ambulatory CAIT CLAYTON Not Available Start: 09-15-2023 End: 09-16-2023 ambulatory German [facility]ALL Facility:[facility] Start: 09-15-2023 End: 09-15-2023 Patient encounter procedure [facility] Start: 09-07-2023 End: 09-07-2023 ambulatory Jennifer RUIZ Facility:[facility] Start: 08-28-2023 End: 08-29-2023 ambulatory German [facility] Facility:[facility] Start: 08-28-2023 End: 08-28-2023 Patient encounter procedure [facility] Start: 08-24-2023 End: 08-24-2023 ambulatory IJEOMA RUIZ Facility:[facility] Start: 08-09-2023 End: 08-09-2023 ambulatory Jennifer RUIZ Facility:[facility] Start: 08-09-2023 End: 08-09-2023 Patient encounter procedure Jennifer Ruiz MD Work Phone: [facility] Comment on above: Malignant neoplasm o f prostate (HCC) (Primary Dx) Start: 08-03-2023 End: 08-04-2023 ambulatory German [facility]ALL Facility:[facility] Start: 08-03-2023 End: 08-03-2023 Patient encounter procedure [facility] Start: 08-02-2023 End: 08-03-2023 ambulatory German WESTFALL Facility:[facility] Start: 08-02-2023 End: 08-02-2023 Patient encounter procedure German Colmenares [facility] Start: 07-27-2023 End: 07-28-2023 ambulatory Jennifer RUIZ Facility:[facility] Start: 07-27-2023 End: 07-27-2023 Patient encounter procedure Jennifer Ruiz MD Work Phone: [facility] Comment on above: Malignant neoplasm o f prostate (HCC) (Primary Dx) Start: 07-17-2023 Patient encounter procedure Jennifer Ruiz MD Work Phone: [facility] Start: 07-17-2023 Radiation Oncology Note G Onofre Ruiz MD Work Phone: [facility] Comment on above: Treatment Planning Start: 07-05-2023 Patient encounter procedure Jennifer Ruiz MD Work Phone: [facility] Start: 07-05-2023 Radiation Oncology Note Jennifer Ruiz MD Work Phone: [facility] Comment on above: Simulation Note Start: 07-05-2023 End: 07-05-2023 ambulatory Jennifer RUIZ Facility:[facility] Start: 06-02-2023 Patient encounter procedure Jennifer Ruiz MD Work Phone: [facility] Start: 06-02-2023 Radiation Oncology Note Jennifer Ruiz MD Work Phone: [facility] Comment on above: Completion Note Start: 06-02-2023 End: 06-02-2023 ambulatory Jennifer RUIZ Facility:[facility] Start: 06-01-2023 End: 06-01-2023 ambulatory Jennifer RUIZ Facility:[facility] Start: 05-31-2023 End: 05-31-2023 ambulatory Jennifer RUIZ Facility:[facility] Start: 05-30-2023 End: 05-30-2023 ambulatory Jennifer RUIZ Facility:[facility] Start: 05-29-2023 End: 05-29-2023 ambulatory Jennifer RUIZ Facility:[facility] Start: 05-29-2023 End: 05-29-2023 Patient encounter procedure Jennifer Ruiz MD Work Phone: Radiation Oncology Comment on above: Malignant neoplasm o f prostate (HCC) (Primary Dx) Start: 05-26-2023 End: 05-26-2023 ambulatory Jennifer RUIZ Facility:[facility] Start: 05-25-2023 End: 05-25-2023 ambulatory Jennifer RUIZ Facility:[facility] Start: 05-24-2023 End: 05-24-2023 ambulatory Jennifer RUIZ Facility:[facility] Start: 05-23-2023 End: 05-23-2023 ambulatory Jennifer RUIZ Facility:[facility] Start: 05-23-2023 End: 05-23-2023 Patient encounter procedure Jennifer Ruiz MD Work Phone: [facility] Oncology Comment on above: Malignant neoplasm o f prostate (HCC) (Primary Dx) Start: 05-19-2023 End: 05-19-2023 ambulatory Jennifer RUIZ Facility:[facility] Start: 05-18-2023 End: 05-18-2023 ambulatory Jennifer RUIZ Facility:[facility] Start: 05-17-2023 Patient encounter procedure [facility] Provider [facility] Start: 05-17-2023 End: 05-17-2023 ambulatory Jennifer RUIZ Facility:[facility] Start: 05-16-2023 End: 05-16-2023 ambulatory Jennifer RUIZ Facility:[facility] Start: 05-16-2023 End: 05-16-2023 Patient encounter procedure Jennifer Ruiz MD Work Phone: Radiation Oncology Comment on above: Malignant neoplasm o f prostate (HCC) (Primary Dx) Start: 05-12-2023 End: 05-12-2023 ambulatory Jennifer RUIZ Facility:[facility] Start: 05-10-2023 End: 05-10-2023 ambulatory Jennifer RUIZ Facility:[facility] Start: 05-09-2023 End: 05-09-2023 ambulatory Jennifer RUIZ Facility:[facility] Start: 05-08-2023 End: 05-08-2023 ambulatory Jennifer RUIZ Facility:[facility] Start: 05-08-2023 End: 05-08-2023 Patient encounter procedure Jennifer Ruiz MD Work Phone: [facility] Comment on above: Malignant neoplasm o f prostate (HCC) (Primary Dx); Platelets decreased (HCC) Start: 05-05-2023 End: 05-05-2023 ambulatory Jennifer RUIZ Facility:[facility] Start: 05-04-2023 End: 05-04-2023 ambulatory Jennifer RUIZ Facility:[facility] Start: 05-04-2023 End: 05-04-2023 Patient encounter procedure [facility] Work Phone: [facility] Oncology Comment on above: Malignant neoplasm o f prostate (HCC) (Primary Dx) Start: 05-03-2023 End: 05-03-2023 ambulatory Jennifer RUIZ Facility:[facility] Start: 05-02-2023 End: 05-02-2023 ambulatory Jennifer RUIZ Facility:[facility] Start: 05-01-2023 End: 05-01-2023 ambulatory Jennifer RUIZ Facility:[facility] Start: 05-01-2023 End: 05-01-2023 Patient encounter procedure Jennifer Ruiz MD Work Phone: Radiation Oncology Comment on above: Malignant neoplasm o f prostate (HCC) (Primary Dx) Start: 04-28-2023 End: 04-28-2023 ambulatory Jennifer RUIZ Facility:[facility] Start: 04-27-2023 End: 04-27-2023 ambulatory Jennifer RUIZ Facility:[facility] Start: 04-26-2023 End: 04-26-2023 ambulatory Jennifer RUIZ Facility:[facility] Start: 04-26-2023 End: 04-26-2023 Patient encounter procedure Jennifer Ruiz MD Work Phone: Radiation Oncology Comment on above: Malignant neoplasm o f prostate (HCC) (Primary Dx) Start: 04-25-2023 Telephone encounter Jennifer Ruiz MD Work Phone: Radiation Oncology Comment on above: Orders Start: 04-18-2023 End: 04-19-2023 ambulatory Jennifer RUIZ Facility:[facility] Start: 04-18-2023 Patient encounter procedure Jennifer Ruiz MD Work Phone: [facility] Start: 04-18-2023 Radiation Oncology Note Jennifer Ruiz MD Work Phone: Radiation Oncology Comment on above: Simulation Note Start: 04-17-2023 End: 04-17-2023 ambulatory [facility] Start: 04-05-2023 End: 04-05-2023 ambulatory GERMAN WESTFALL Facility:[facility] Start: 04-05-2023 End: 04-05-2023 Patient encounter procedure Jennifer Ruiz MD Work Phone: Radiation Oncology Comment on above: Malignant neoplasm o f prostate (HCC) (Primary Dx) Start: 03-27-2023 End: 03-28-2023 ambulatory German WESTFALL Facility:[facility] Start: 03-27-2023 End: 03-27-2023 Patient encounter procedure German WESTFALL [facility] Start: 03-15-2023 End: 03-16-2023 ambulatory German WESTFALL Facility:[facility] Start: 03-15-2023 End: 03-16-2023 ambulatory 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 Marla Whitfield Facility:[facility] Margaret torres Start: 03-07-2023 End: 03-08-2023 ambulatory German WESTFALL Facility[facility] Start: 03-07-2023 End: 03-07-2023 Patient encounter procedure German WESTFALL [facility] Start: 03-01-2023 End: 03-02-2023 ambulatory UDAY WILSON Facility:[facility] Start: 03-01-2023 End: 03-01-2023 Patient encounter procedure German WESTFALL [facility] Start: 02-15-2023 ambulatory 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 DROPS 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 Marla Roseann Facilit y:[facility] Start: 02-15-2023 End: 02-16-2023 ambulatory 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 DROPS 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 Marla L Roseann Facility:[facility] Start: 02-15-2023 End: 02-15-2023 Lab Drop off Marla L Roseann [facility] Start: 02-14-2023 End: 02-15-2023 ambulatory UDAY WILSON Facility:[facility] [place] Start: 02-10-2023 End: 02-11-2023 ambulatory 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 DROPS 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 Marla L Roseann Facility:[facility] Start: 02-10-2023 End: 02-10-2023 Lab Drop off Marla L Roseann [facility] Start: 02-08-2023 End: 02-09-2023 ambulatory UDAY WILSON Facility:[facility] [place] Start: 12-06-2022 End: 12-07-2022 ambulatory UDAY WILSON Facility:[facility] Start: 12-02-2022 End: 12-03-2022 ambulatory [facility] Start: 11-23-2022 ambulatory 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 Facility: Start: 10-10-2022 End: 10-11-[address] DOCTOR PATEL Facility: Start: 08-23-2022 End: 08-23-2022 ambulatory Kilo Harkins Facility:[facility] Start: 08-23-2022 End: 08-23-2022 ambulatory MD Uday Wilson Work Phone: [facility] Work Phone: Start: 08-23-2022 End: 08-23-2022 Patient encounter procedure MD Uday Wilson Work Phone: [facility] [place] Start: 07-04-2022 End: 07-05-[address] UDAY WILSON . Facility:[facility] Start: 05-24-2022 End: 05-25-[address] DOCTOR PATEL Facility:[facility] Start: 02-08-2022 End: 02-09-[address] UDAY WILSON . Facility:[facility] Start: 02-07-2022 End: 02-08-[address] UDAY WILSON . Facility:[facility] Start: 08-24-2021 End: 08-24-2021 ambulatory Kilo Harkins Other [facility] Other Start: 08-24-2021 Office outpatient vi sit 25 minutes Kilo Harkins [facility] Neurosurgery Procedures Date Procedure Procedure Detail Performing Clinician Start: 07-27-2023 Brachytherapy German HURLEY Start: 05-04-2023 Blood count complete auto&auto difrntl wbc G Kanu Ruiz MD Work Phone: Start: 03-07-2023 Transrectal needle b iopsy of prostate German WESTFALL Start: 02-16-2023 Biopsy German CAZARES Comment on above: Prostate Start: 08-23-2022 X-ray of lumbar spin e, four views MD Uday Wilson Work Phone: Cataract (disorder) German WESTFALL Cyst (disorder) Marla Whitfield Comment on above: Excision mid back H/O: artificial joint Kilo jefferson Other Repair of hip Marla Roseann Surgical procedure Marla Schw ab Comment on above: back at age 4 Plan of Treatment Date Care Activity Detail Author Start: 03-18-2027 Urine microalbumin profile DTaP,Tdap,Td Vaccine (2 - Td or Tdap) [facility] Start: 09-08-2023 End: 12-08-2023 Prostate specific Ag [Mass/volume] in Serum or Plasma PSA/PROSTSPECAG DIAG Lab Routine Malignant neoplasm of prostate (HCC) Expected: 09/08/2023, Expires: 12/08/2023 [facility] Work Phone: Comment on above: Expected: 09/08/2023 , Expires: 12/08/2023 Start: 05-19-2023 Covid-19 Vaccine ( season) Covid-19 Vaccine () [facility] Start: 05-19-2023 Influenza vaccination [facility] Start: 05-04-2023 End: 07-04-2023 CBC W Auto Differential panel - Blood CBC + DIFF Lab Routine Malignant neoplasm of prostate (HCC) Expected: 05/04/2023, Expires: 07/04/2023 [facility] Work Phone: Comment on above: Expected: 05/04/2023 , Expires: 07/04/2023 Start: 09-18-2022 ADVANCE DIRECTIVE DISCUSSION ADVANCE DIRECTIVE DISCUSSION [facility] Start: 09-18-2022 DEPRESSION ASSESSMENT DEPRESSION ASS ESSMENT [facility] Start: 09-24-2021 COVID-19 VACCINE (4 - Pfizer series) COVID-19 VACCINE (4 - Pfizer series) [facility] Start: 07-10-2020 Shingrix Vaccine (2 of 3) Shingrix Vaccine (2 of 3) [facility] Start: 2012 Pneumococcal Vaccine : 65+ (1 - PCV) Pneumococcal Vaccine: 65+ (1 - PCV) [facility] Start: 2012 PNEUMOCOCCAL: 65+ (1 - PCV) PNEUMOCOCCAL: 65+ (1 - PCV) [facility] Start: 2007 RSV Vaccine (1 - 1-d ose 60+ series) RSV Vaccine (1 - 1-dose 60+ series) [facility] Start: 1997 SHINGRIX VACCINE (1 of 2) SHINGRIX VACCINE (1 of 2) [facility] Start: 1992 COLOGUARD (FIT-DNA) COLOGUARD (FIT-D NA) [facility] Start: 1992 Colonoscopy COLONOSCOPY [facility] Start: 1992 COLORECTAL CANCER SCREENING COLORECTAL CANCER SCREENING [facility] Start: [address] COLONOGRAPHY [facility] Start: 1992 DIABET[facility]EN [facility] Start: 1992 Diabetes Screening Diabetes Screenin g [facility] Start: 1992 FECAL OCCULT BLOOD FECAL OCCULT BLOO D [facility] Start: 1992 SIGMOIDOSCOPY SIGMOIDOSCOPY [facility] Start: 1982 Lipid 1996 panel - S [place] or Plasma Lipid Screening [facility] Start: 1982 LIPID SCREEN LIPID SCREEN [facility] Start: 1966 Urine microalbumin profile [facility] Start: 1965 HEPATITIS C SCREENING HEPATITIS C SC IGOR [facility] Immunizations Immunization Date Immunization Notes Care Provider Haley dorado 07-21-2023 influenza virus vaccine, unspecified formulation German WESTFALL [facility] 07-26-2022 influenza virus vaccine, unspecified formulation Marla Whitfield [facility] 07-30-2021 SARS-CoV-2 (COVID-19 ) mRNA BNT-162b2 vax Marla Roseann [facility] Comment on above: Result Comment: 2022: [id number] 11-10-2020 SARS-CoV-2 (COVID-19 ) mRNA BNT-162b2 vax Marla Roseann [facility] Comment on above: Result Comment: 2022: TPV70 10-20-2020 SARS-CoV-2 (COVID-19 ) mRNA BNT-162b2 vax Marla Roseann [facility] Comment on above: Result Comment: 2022: [id number] 05-15-2020 zoster vaccine, live Marla Sc hwab [facility] 11-13-2019 zoster vaccine, live Marla Sc hwab [facility] 11-06-2019 influenza virus vaccine, unspecified formulation Marla Roseann [facility] 11-21-2018 pneumococcal polysaccharide vaccine, 23 valent Marla Roseann [facility] 08-20-2018 influenza virus vaccine, unspecified formulation Marla Roseann [facility] 06-20-2017 pneumococcal conjuga te vaccine, 13 valent Marla Roseann [facility] 07-13-2016 influenza virus vaccine, unspecified formulation Marla Roseann [facility] 08-08-2014 influenza virus vaccine, unspecified formulation Marla Roseann [facility] 08-07-2013 influenza virus vaccine, unspecified formulation Marla Roseann [facility] NEGATED: Highlighted row has not occurred!08-27-2020 Fluzone QIV High-Dose 65YR+ MD Uday Wilson Work Phone: [facility] Payers Date Payer Category Payer Medicare [id number] 2022 Private Health Insurance [id number] 2017 Medicare HUMANA MEDICARE HUMANA MEDICARE PPO [id number] 2017-Present [phone] [address] [address] [place] [address] PPO [id number] 2012 Unknown [id number] 1959 Medicare [id number] [id number] 1947 Unknown [id number] 2.16.840.1.029751.3.579.2 .593 1947 Unknown [id number] 2.16.840.1.008126.3.579.2 .593 1947 Unknown [id number] 2.16.840.1.447733.3.579.2 .593 1947 Unknown [id number] 2.16.840.1.140294.3.579.2 .593 1947 Unknown [id number] 2.16.840.1.242712.3.579.2 .593 1947 Unknown [id number] 2.16.840.1.905943.3.579.2 .593 1947 Unknown [id number] 2.16.840.1.816937.3.579.2 .727 1947 Unknown [id number] 2.16.840.1.538418.3.579.2 .727 1947 Unknown [id number] 2.16.840.1.218370.3.579.2 .727 1947 Unknown [id number] 2.16.840.1.391764.3.579.2 .727 1947 Unknown [id number] 2.16.840.1.052444.3.579.2 .727 1947 Unknown [id number] 2.16.840.1.296104.3.579.2 .727 1947 Unknown [id number] 2.16.840.1.559441.3.579.2 .727 1947 Unknown [id number] 2.16.840.1.567582.3.579.2 .1947 Unknown [id number] 2.16.840.1.475678.3.579.2 .72 1947 Unknown [id number] 2.16.840.1.371540.3.579.2 .1947 Unknown [id number] 2.16.840.1.055814.3.579.2 .1947 Unknown [id number] 2.16.840.1.527525.3.579.2 .1947 Unknown [id number] 2.16.840.1.187837.3.579.2 .1947 Unknown [id number] 2.16.840.1.055270.3.579.2 1947 Unknown [id number] 2.16.840.1.254287.3.579.2 .1947 Unknown [id number] 2.16.840.1.685412.3.579.2 1947 Unknown [id number] 2.16.840.1.747651.3.579.2 1947 Unknown [id number] 2.16.840.1.316505.3.579.2 .1947 Unknown [id number] 2.16.840.1.352370.3.579.2 .1947 Unknown [id number] 2.16.840.1.236819.3.579.2 .1947 Unknown [id number] 2.16.840.1.146783.3.579.2 .1947 Unknown [id number] 2.16.840.1.643746.3.579.2 .1947 Unknown [id number] 2.16.840.1.782230.3.579.2 .727 1947 Unknown [id number] 2.16.840.1.423652.3.579.2 .1259 Self-pay Self Pay [id number] Unknown [facility] [id number] Social History Date Type Detail Facility Start: 04-05-2023 End: 08-09-2023 [facility] Assigned At [facility] Start: 08-26-2020 End: 09-15-2023 Tobacco smoking status NHIS Ex-smoker (finding) [facility] Start: 1945 Sex Assigned At Male F [facility] Start: 09-18-1967 History of tobacco use Current smoke r [facility] Start: 09-18-1967 History of tobacco use Cigarette Smo ker [facility] History of tobacco use Cigar Smoker [facility] Start: 04-05-2023 End: 08-09-2023 Cigarettes smoked current (pack per day) - Reported 0.5 [facility] Start: 04-05-2023 Tobacco use and exposure User of smokeless tobacco [facility] Start: 04-05-2023 End: 08-09-2023 Alcohol intake Ex-drinker (finding) [facility] National Score (1-10 0), lower number is lower risk 61 [facility] Start: 1945 Sex Assigned At Not on file [facility] Medical Equipment Procedure Code Equipment Code Equipment Origin al Text Equipment Identifier Dates Fusion, spine, lumbar, XLIF STRATOFUSE DBM 10CC FDA Start: 08-26-2020 Fusion, spine, lumbar, XLIF Bone-screw internal spinal fixation system, non-sterile [id number] FDA Start: 08-26-2020 Fusion, spine, lumbar, XLIF Orthopaedic bone screw, non-bioabsorbable, non-sterile [id number] FDA Start: 08-26-2020 Fusion, spine, lumbar, XLIF Orthopaedic bone screw, non-bioabsorbable, non-sterile [id number] FDA Start: 08-26-2020 Fusion, spine, lumbar, XLIF STRATOFUSE DBM 10CC FDA Start: 08-26-2020 Fusion, spine, lumbar, XLIF Bone-screw internal spinal fixation system, non-sterile [id number] FDA Start: 08-26-2020 Fusion, spine, lumbar, XLIF Bone-screw internal spinal fixation system, non-sterile [id number] FDA Start: 08-26-2020 Fusion, spine, lumbar, XLIF STRATOFUSE DBM 5CC FDA Start: 08-26-2020 Fusion, spine, lumbar, XLIF Spinal fusion graft kit [id number] FDA Start: 08-26-2020 Fusion, spine, lumbar, XLIF Spinal fusion graft kit [id number] FDA Start: 08-26-2020 Fusion, spine, lumbar, XLIF Metallic spinal fusion cage, non-sterile [id number] FDA Start: 08-26-2020 Fusion, spine, lumbar, XLIF Metallic spinal fusion cage, non-sterile [id number] FDA Start: 08-26-2020 Fusion, spine, lumbar, XLIF Metallic spinal fusion cage, non-sterile [id number] FDA Start: 08-26-2020 Functional Status Date Assessment Result Facility 09-15-2023 Functional Status N/A [facility] 08-28-2023 Functional Status N/A [facility] 03-27-2023 Functional Status N/A [facility] 03-07-2023 Functional Status N/A [facility] 03-01-2023 Functional Status N/A [facility] Clinical Notes 08-01-2016 to 10-23-2023 Jennifer Ruiz MD - 08/09/2023 10:07 AM Dara Bear LPN - 08/09/2023 9:45 AM Jennifer Gamble MD - 07/27/2023 12:39 PM Jennifer Gamble MD - 07/17/2023 12:00 AM EDT Note Date & Type Note Facility 10-23-2023 Note Orthopedic Surgery Subjective Chief complaint: Chief Complaint Patient presents with Left Hip - Pain, New Patient 10/23/23 Jhonathan Aguilar is a 78 y.o. 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 Patient underwent revision of the left hip for loosening of his hardware secondary to infection. Following this he has been doing well denies any groin pain. He has been ambulating full weightbearing. He recently has been diagnosed with carcinoma of his prostate and has had multiple radiations as well. He tends to walk with anterior stoop secondary to his lumbosacral degenerative arthritis and is lumbosacral radiculopathy. Patient has been accompanied by his today. He is happy with his left hip joint at this point in time denies any fever, chills or rigors and breathlessness. He has been on long-term antibiotic suppression as well in the form of doxycycline. He is here for his annual follow-up visit and is now almost 1.5 years following hissurgery. He denies any systemic symptoms. Patient History Past Surgical History: Procedure Laterality Date BACK SURGERY X2 CARPAL TUNNEL RELEASE Bilateral 2010 FINGER SURGERY FL GUIDED ASPIRATION OR INJECTION LARGE JOINT BILATERAL Bilateral 12/16/2021 [place] GUIDED ASPIRATION OR INJECTION LARGE JOINT BILATERAL OTT CONVERSION JOINT REPLACEMENT Left HIP Past Medical History: Diagnosis Date Cataract Irritable bowel syndrome Lumbar spine pain Osteoarthritis Objective General: Body mass index is 29.85 kg/m???. No acute distress, comfortable Respiratory: Unlabored breathing with normal rate, no cough Cardiovascular: Warm well perfused extremities Psych: Appropriate mood behavior Left hip examined: Incision noted which is healing well, no signs of any infection or inflammation seen. There is no localized collection noted. Patient walks without any major antalgia of the left hip joint. No limiting discrepancy seen. He does have anterior band secondary to his loss of lumbar lordosis, no tenderness over the trochanteric region. Has mild discomfort over the left SI joint and the L4-L5 and L5-S1 level. No major paraspinal spasm noted. No step noted. No new neurological deficit seen. No calf swelling or tenderness noted, no signs of deep vein thrombosis seen. Distal neurovascular status is intact. Imaging personally reviewed: X-rays of the left hip joint along with the pelvis with both hips were taken today in the office was seen by myself and interpreted independently which show the patient has left hip revision hip arthroplasty along with good alignment of his hip arthroplasty without any new fracture or dislocation seen. 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 These were explained to the patient. Patient also has signs of prostatic implantation secondary to his prostatic CA and surgery. Assessment/Plan Jhonathan Aguilar is a 78 y.o. year old male with History of revision of total hip arthroplasty Patient was explained that his left hip arthroplasty looks well aligned without any new complications. Patient was advised to continue with his hip precautions and avoid falls. We will continue to use his antibiotic suppression. He will continue with his ambulation as tolerated and continue with his treatment for his back. We will see him back in about 1 years time or earlier if required. All questions answered today. Patient is happy with the plan. Follow-up in about 1 years time for repeat x-rays of the left hip joint. Dr. [facility] Adult Reconstruction and Trauma [facility]. [facility] 09-15-2023 Hospital Discharge instructions Patient Education 09/15/2023 09:37:27 Prostate Cancer Prostate Cancer The prostate is a small gland that produces fluid that makes up semen (seminal fluid). It is located below the bladder in men, in front of the rectum. Prostate cancer is the abnormal growth of cells in the prostate gland. What are the causes? The exact cause of this condition is not known. What increases the risk? You are more likely to develop this condition if: You are 65 years of age or older. You have a family history of prostate cancer. You have a family history of breast and ovarian cancer. You have genes that are passed from parent to child (inherited), such as BRCA1 and BRCA2. You have Holder syndrome. men and men of descent are diagnosed with prostate cancer at higher rates than other men. The reasons for this are not well understood and are likely due to a combination of genetic and environmental factors. What are the signs or symptoms? Symptoms of this condition include: Problems with urination. This may include: ?A weak or interrupted flow of urine. ?Trouble starting or stopping urination. ?Trouble emptying the bladder all the way. ?The need to urinate more often, especially at night. Blood in urine or semen. Persistent pain or discomfort in the lower back, lower abdomen, or hips. Trouble getting an erection. Weakness or numbness in the legs or feet. How is this diagnosed? This condition can be diagnosed with: A digital rectal exam. For this exam, a health care provider inserts a gloved finger into the rectum to feel the prostate gland. A blood test called a prostate-specific antigen (PSA) test. A procedure in which a sample of tissue is taken from the prostate and checked under a microscope (prostate biopsy). An imaging test called transrectal ultrasonography. Once the condition is diagnosed, tests will be done to determine how far the cancer has spread. This is called staging the cancer. Staging may involve imaging tests, such as a bone scan, CT scan, PET scan, or MRI. Stages of prostate cancer The stages of prostate cancer are as follows: Stage 1 (I). At this stage, the cancer is found in the prostate only. The cancer is not visible on imaging tests, and it is usually found by accident, such as during prostate surgery. Stage 2 (II). At this stage, the cancer is more advanced than it is in stage 1, but the cancer has not spread outside the prostate. Stage 3 (III). At this stage, the cancer has spread beyond the outer layer of the prostate to nearby tissues. The cancer may be found in the seminal vesicles, which are near the bladder and the prostate. Stage 4 (IV). At this stage, the cancer has spread to other parts of the body, such as the lymph nodes, bones, bladder, rectum, liver, or lungs. Prostate cancer grading Prostate cancer is also graded according to how the cancer cells look under a microscope. This is called the Ev score and the total score can range from 6 10, indicating how likely it is that the cancer will spread (metastasize) to other parts of the body. The higher the score, the greater the likelihood that the cancer will spread. [place] 6 or lower: This indicates that the cancer cells look similar to normal prostate cells (well differentiated). [place] 7: This indicates that the cancer cells look somewhat similar to normal prostate cells (moderately differentiated). Ev 8, 9, or 10: This indicates that the cancer cells look very different than normal prostate cells (poorly differentiated). How is this treated? Treatment for this condition depends on several factors, including the stage of the cancer, your age, personal preferences, and your overall health. Talk with your health care provider about treatment options that are recommended for you. Common treatments include: Observation for early stage prostate cancer (active surveillance). This involves having exams, blood tests, and in some cases, more biopsies. For some men, this is the only treatment needed. Surgery. Types of surgeries include: ?Open surgery (radical prostatectomy). In this surgery, a larger incision is made to remove the prostate. ?A laparoscopic radical prostatectomy. This is a surgery to remove the prostate and lymph nodes through several small incisions. It is often referred to as a minimally invasive surgery. ?A robotic radical prostatectomy. This is laparoscopic surgery to remove the prostate and lymph nodes with the help of robotic arms that are controlled by the surgeon. ?Cryoablation. This is surgery to freeze and destroy cancer cells. Radiation treatment. Types of radiation treatment include: ?External beam radiation. This type aims beams of radiation from outside the body at the prostate to destroy cancerous cells. ?Brachytherapy. This type uses radioactive needles, seeds, wires, or tubes that are implanted into the prostate gland. Like external beam radiation, brachytherapy destroys cancerous cells. An advantage is that this type of radiation limits the damage to surrounding tissue and has fewer side effects. Chemotherapy. This treatment kills cancer cells or stops them from multiplying. It kills both cancer cells and normal cells. Targeted therapy. This treatment uses medicines to kill cancer cells without damaging normal cells. Hormone treatment. This treatment involves taking medicines that act on testosterone, one of the male hormones, by: ?Stopping your body from producing testosterone. ?Blocking testosterone from reaching cancer cells. Follow these instructions at home: Lifestyle Do not use any products that contain nicotine or tobacco. These products include cigarettes, chewing tobacco, and vaping devices, such as e-cigarettes. If you need help quitting, ask your health care provider. Eat a healthy diet. To do this: ?Eat foods that are high in fiber. These include beans, whole grains, and fresh fruits and vegetables. ?Limit foods that are high in fat and sugar. These include fried or sweet foods. Treatment for prostate cancer may affect sexual function. If you have a partner, continue to have intimate moments. This may include touching, holding, hugging, and caressing your partner. Get plenty of sleep. Consider joining a support group for men who have prostate cancer. Meeting with a support group may help you learn to manage the stress of having cancer. General instructions Take fcqa-fmy-fjchabk and prescription medicines only as told by your health care provider. If you have to go to the hospital, notify your cancer specialist (oncologist). Keep all follow-up visits. This is important. Where to find more information [employer]: www.cancer.org [employer] Oncology: www.cancer.net National Cancer [place]: www.cancer.gov Contact a health care provider if: You have new or increasing trouble urinating. You have new or increasing blood in your urine. You have new or increasing pain in your hips, back, or chest. Get help right away if: You have weakness or numbness in your legs. You cannot control urination or your bowel movements (incontinence). You have chills or a fever. Summary The prostate is a small gland that is involved in the production of semen. It is located below a man's bladder, in front of the rectum. Prostate cancer is the abnormal growth of cells in the prostate gland. Treatment for this condition depends on the stage of the cancer, your age, personal preferences, and your overall health. Talk with your health care provider about treatment options that are recommended for you. Consider joining a support group for men who have prostate cancer. Meeting with a support group may help you learn to manage the stress of having cancer. This information is not intended to replace advice given to you by your health care provider. Make sure you discuss any questions you have with your health care provider. Document Revised: 12/01/2021 Document Reviewed: 12/01/2021 [employer] Patient Education 2022 [employer] Follow Up Care 03/27/2023 11:11:43 With:MALOU MCGREGOR, German Colmenares, URL Address: [address] [place] [address] [place] [address]- When: Unknown [facility] 09-07-2023 Note HNO ID: [id number] Author: Jennifer Ruiz MD Service: ? Author Type: Physician Type: Progress Notes Filed: 09/14/2023 3:22 PM Note Text: Radiation Oncology - Follow Up Note PATIENT NAME: Jhonathan Aguilar PATIENT DIAGNOSIS: Prostate adenocarcinoma, initial PSA 26.2, biopsy Cannelton score 4 + 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 Prostate cancer (C61), 2019 NCCN Risk Group: High Risk Group RADIATION SUMMARY: DATES OF TREATMENT: Pelvis External Beam: 04/26/23 - 06/02/23 Prostate Brachytherapy: 07/27/23 DELIVERED DOSE: Area: Pelvis/Prostate 45 Gy in 25 fractions, 3 ARCS, VMAT, 10MV WITH DAILY CBCT Prostate Brachytherapy 100 Gy Pd-103,43 sources, 68.8 mCi INTERVAL HISTORY: The patient presents for routine follow-up after recent brachytherapy. Doing well. PSA HISTORY: PSA (ng/mL) Date Value 08/24/2023 0.05 ALLERGIES Allergen Reactions Codeine Mental Status Change Oxycodone Other: See Comments Dizziness, syncope solifenacin 10 mg tablet Take 10 mg by mouth every afternoon. amoxicillin-clavulanic acid (AUGMENTIN) 500-125 mg per tablet TAKE 1 TABLET (500 MG) BY MOUTH IN THE MORNING AND AT BEDTIME. bicalutamide (CASODEX) 50 mg tablet Take 50 mg by mouth. dicyclomine (BENTYL) 20 mg tablet Take 20 mg by mouth. meloxicam (MOBIC) 7.5 mg tablet TAKE ONE TABLET BY MOUTH TWICE A DAY WITH FOOD NEEDED FOR ARTHRITIS PAIN Lactobac 42/Bifid 8/colost/FOS (PROBIOTIC PLUS COLOSTRUM ORAL) Take by mouth. calcium carbonate/vitamin D3 (CALTRATE 600 + D ORAL) Take by mouth. fluticasone (FLONASE) 50 mcg/actuation nasal spray Use in the nose. REVIEW OF SYSTEMS: D/N = 4-7/2-4 Hematuria: none Dysuria: Yes improving Incontinence: none Urgency: Mild Catheter use: No Medications to aid urination: Vesicare - Total AUA Score: 14 Bowel movement frequency: 1/day Bowel movement quality: normal Blood per rectum: none Last colonoscopy: na Androgen deprivation: Jan Simmons PHYSICAL EXAM: BP 144/81 Pulse 66 Temp 36 ?C (96.8 ?F) Resp 16 Wt 96.1 kg (211 lb 13.8 oz) SpO2 99% BMI 29.34 kg/m? KPS: 100 General Appearance: Alert and oriented. No acute distress. Rectal exam is deferred. 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 Prostate cancer (C61), 2019 NCCN Risk Group: High Risk Group Patient overall doing well. Post-implant CT shows appropriate prostate coverage and normal tissue sparing. No change or modification in either the treatment or follow-up plan based on this. Recommend repeat PSA in 6 months. Patient has continued close follow-up with Dr. Westfall. Signed by: Jennifer Ruiz MD cc: Dr. Westfall [facility] 08-28-2023 Hospital Discharge instructions Patient Education 08/28/2023 09:58:09 Brachytherapy for Prostate Cancer Brachytherapy for Prostate Cancer Brachytherapy for prostate cancer is a type of internal radiation treatment that involves placing a source of radiation right inside the prostate gland. This allows the delivery of a higher dose of radiation than would be possible with external radiation therapy treatment. There are many types of brachytherapy: Low-dose rate (LDR) therapy. This involves temporary or permanent implants of radioactive seeds or pellets that give off a low dose of radiation. ?Temporary low-dose implants are left in the prostate for 1 7 days. The radioactive material is contained within a delivery tool, which may be a needle, a small, thin tube (catheter), or another type of applicator. You will need to stay in the hospital while the delivery tool and radioactive material are in place. ?Permanent low-dose implants are left in the prostate. They slowly give off radiation for many months after they are inserted. After the radiation is gone, they just stay in the body. They do not cause any harm and are not removed. High-dose rate (HDR) therapy. This involves inserting a material that gives off a higher dose of radiation for only a few minutes. The radioactive material is often wires or ribbons contained within a delivery tool (needle, applicator, or catheter). The delivery tool is removed after treatment, and no radioactive material is left in the prostate. In brachytherapy, the radiation does not travel far from the prostate, so healthy tissues around the prostate receive only a small dose of radiation. This helps to protect those tissues from injury. In some cases, brachytherapy may be given along with external beam radiation. Tell a health care provider about: Any allergies you have. All medicines you are taking, including vitamins, herbs, eye drops, creams, and hyqz-clz-wjzhakb medicines. Any problems you or family members have had with anesthetic medicines. Any bleeding problems you have. Any surgeries you have had. Any medical conditions you have. Any prostate infections you have had. What are the risks? Generally, this is a safe procedure. However, problems may occur, including: Inflammation of the rectum. Problems getting or keeping an erection (erectile dysfunction). Inability to control when you urinate or have bowel movements (incontinence). Damage to nearby structures or organs. Diarrhea. Bleeding. What happens before the procedure? Staying hydrated Follow instructions from your health care provider about hydration, which may include: Up to 2 hours before the procedure you may continue to drink clear liquids, such as water, clear fruit juice, black coffee, and plain tea. Eating and drinking restrictions Follow instructions from your health care provider about eating and drinking, which may include: 8 hours before the procedure stop eating heavy meals or foods, such as meat, fried foods, or fatty foods. 6 hours before the procedure stop eating light meals or foods, such as toast or cereal. 6 hours before the procedure stop drinking milk or drinks that contain milk. 2 hours before the procedure stop drinking clear liquids. Medicines Ask your health care provider about: ?Changing or stopping your regular medicines. This is especially important if you are taking diabetes medicines or blood thinners. ?Taking medicines such as aspirin and ibuprofen. These medicines can thin your blood. Do not take these medicines unless your health care provider tells you to take them. ?Taking gvqj-hvj-uqhkbgn medicines, vitamins, herbs, and supplements. Follow your health care provider's instructions about cleaning out your bowels. Surgery safety Ask your health care provider: How your surgery site will be marked. What steps will be taken to help prevent infection. These may include: ?Removing hair at the procedure site. ?Washing skin with a germ-killing soap. ?Taking antibiotic medicine before and after the procedure. General instructions You may have exams or testing done before or after the procedure. Blood or urine samples may be taken. You may need imaging tests, such as a CT scan or an MRI. Do not use any products that contain nicotine or tobacco for at least 4 weeks before the procedure. This includes cigarettes, chewing tobacco, and vaping devices, such as e-cigarettes. If you need help quitting, ask your health care provider. Plan to have a responsible adult take you home from the hospital or clinic. Plan to have a responsible adult care for you for the time you are told after you leave the hospital or clinic. What happens during the procedure? An IV will be put into one of the veins in your arm or hand. You may be given: ?A medicine to help you relax (sedative). ?A medicine to numb the area (local anesthetic). ?A medicine to make you fall asleep (general anesthetic). A thin, flexible tube (Bunch catheter) might be put into your penis, through your urethra, and into your bladder to drain your urine. Your surgeon will insert the radioactive material. The method used will depend on whether you are receiving temporary or permanent brachytherapy. Temporary low-dose or high-dose brachytherapy A delivery tool (needle, applicator, or catheter) will be put into the prostate. It will be inserted through a body cavity, like the rectum, or through the perineum, which is the area beneath the scrotum. An X-ray, ultrasound, MRI, or CT scan will be used to guide the delivery tool into the prostate. Radioactive seeds, pellets, wires, or ribbons will be fed through the delivery tool. If the high-dose method is used: ?The radioactive material will be left in for a few minutes and then removed. ?When the treatment is finished, the delivery tool will be removed. If the low-dose method is used: ?The delivery tool containing the radioactive material will stay in place for 1 7 days. ?You will stay in the hospital while the implant is in place. ?When the treatment is finished, the radioactive material and delivery tool will be removed. Permanent low-dose brachytherapy A tube or needle will be used to inject small, radioactive seeds or pellets into your prostate. The needle or tube will be removed, leaving the seeds or pellets in the prostate. The procedure may vary among health care providers and hospitals. What happens after the procedure? Your blood pressure, heart rate, breathing rate, and blood oxygen level will be monitored until you leave the hospital or clinic. If you were given a sedative during the procedure, it can affect you for several hours. Do not drive or operate machinery until your health care provider says that it is safe. If radiation seeds were left in your prostate, be sure you understand any safety precautions you are to follow at home. Summary Brachytherapy for prostate cancer is a type of radiation treatment that involves placing a source of radiation right inside the prostate gland. There are several types of brachytherapy for prostate cancer: low-dose temporary treatment, low-dose permanent treatment, and high-dose temporary treatment. The amount of time that the source of radiation is left in your prostate will depend on the type of brachytherapy you are having. This information is not intended to replace advice given to you by your health care provider. Make sure you discuss any questions you have with your health care provider. Document Revised: 12/01/2021 Document Reviewed: 12/01/2021 [employer] Patient Education 2022 [employer]. Follow Up Care 06/20/2023 10:40:19 With:MALOU MCGREGOR, German Colmenares, URL Address: [facility] [address], [place] [address]- When:Within 2 Week(s) Comments:appt made for 09/15/23 w/PSA and Lupron [facility] 08-24-2023 Note HNO ID: [id number] Author: Jennifer Ruiz MD Service: ? Author Type: Physician Type: Progress Notes Filed: 09/13/2023 12:32 AM Note Text: Patient: Jhonathan Aguilar Date:08/24/2023 [facility] Department of Radiation Oncology [facility] RADIATION ONCOLOGY POST SEED IMPLANT SIMULATION NOTE DATE OF SIMULATION: 08/24/2023 MACHINE: CT Simulator AREA:Prostate PATIENT POSITION: Supine. CONTRAST: None PROTOCOL: None CONCURRENT THERAPY: None FIXATION DEVICE: None PROCEDURE: Patient was simulated on the CT scanner and CT images of the patients pelvis obtained. ASSESSMENT/PLAN: Patient tolerated simulation procedure well. CT images were obtained on the CT simulator for the prostate post brachy therapy seed implant planning. Post planning for the permanent seed prostate brachy procedure will commence following simulation. Electronically Signed KANU RUIZ M.D. :12 AM [facility] 08-09-2023 Note HNO ID: [id number] Author: Jennifer Ruiz MD Service: ? Author Type: Physician Type: Progress Notes Filed: 08/09/2023 10:13 AM Note Text: Radiation Oncology - Follow Up Note PATIENT NAME: Jhonathan Aguilar PATIENT DIAGNOSIS: Prostate adenocarcinoma, initial PSA 26.2, biopsy Cannelton score 4 + 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 Prostate cancer (C61), 2019 NCCN Risk Group: High Risk Group RADIATION SUMMARY: DATES OF TREATMENT: Pelvis External Beam: 04/26/23 - 06/02/23 Prostate Brachytherapy: 07/27/23 DELIVERED DOSE: Area: Pelvis/Prostate 45 Gy in 25 fractions, 3 ARCS, VMAT, 10MV WITH DAILY CBCT Prostate Brachytherapy 100 Gy Pd-103,43 sources, 68.8 mCi INTERVAL HISTORY: The patient presents for routine follow-up after recent brachytherapy. Doing well. Catheter removed. Some initial increased urgency frequency and decreased emptying however this is improved after starting Vesicare. Denies any fever hematuria. Having some mild dysuria. PSA HISTORY: No results found for: PSA , PSAPER ALLERGIES Allergen Reactions Codeine Mental Status Change Oxycodone Other: See Comments Dizziness, syncope solifenacin (VESICARE) 5 mg tablet Take 1 tablet by mouth every afternoon. amoxicillin-clavulanic acid (AUGMENTIN) 500-125 mg per tablet TAKE 1 TABLET (500 MG) BY MOUTH IN THE MORNING AND AT BEDTIME. bicalutamide (CASODEX) 50 mg tablet Take 50 mg by mouth. dicyclomine (BENTYL) 20 mg tablet Take 20 mg by mouth. meloxicam (MOBIC) 7.5 mg tablet TAKE ONE TABLET BY MOUTH TWICE A DAY WITH FOOD NEEDED FOR ARTHRITIS PAIN Lactobac 42/Bifid 8/colost/FOS (PROBIOTIC PLUS COLOSTRUM ORAL) Take by mouth. calcium carbonate/vitamin D3 (CALTRATE 600 + D ORAL) Take by mouth. fluticasone (FLONASE) 50 mcg/actuation nasal spray Use in the nose. REVIEW OF SYSTEMS: D/N = 4-7/2-4 Hematuria: none Dysuria: Yes improving Incontinence: none Urgency: moderate Catheter use: No Medications to aid urination: Vesicare - Total AUA Score: 21 Bowel movement frequency: 1/day Bowel movement quality: normal Blood per rectum: none Last colonoscopy: na Androgen deprivation: Lupron, Casodex PHYSICAL EXAM: BP 147/73 Pulse (!) 58 Temp 36.1 ?C (97 ?F) Resp 16 Wt 96.6 kg (213 lb) SpO2 98% BMI 29.50 kg/m? KPS: 100 General Appearance: Alert and oriented. No acute distress. Rectal exam is deferred. Perineal area without ecchymosis tenderness or seroma. ASSESSMENT/PLAN: Prostate adenocarcinoma, initial PSA 26.2, biopsy Cannelton score 4 + 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 Prostate cancer (C61), 2019 NCCN Risk Group: High Risk Group Patient overall doing well with improving post-implant urinary issues. No other new problems. Plan to have patient back in 2 weeks for post-implant CT, return for follow-up exam in 4 weeks. He continues close follow-up with Dr. Westfall as well. Signed by: Jennifer Ruiz MD cc: Dr. 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 Prostate cancer (C61), 2019 NCCN Risk Group: High Risk Group RADIATION SUMMARY: DATES OF TREATMENT: Pelvis External Beam: 04/26/23 - 06/02/23 Prostate Brachytherapy: 07/27/23 DELIVERED DOSE: Area: Pelvis/Prostate 45 Gy in 25 fractions, 3 ARCS, VMAT, 10MV WITH DAILY CBCT Prostate Brachytherapy 100 Gy Pd-103,43 sources, 68.8 mCi INTERVAL HISTORY: The patient presents for routine follow-up after recent brachytherapy. Doing well. Catheter removed. Some initial increased urgency frequency and decreased emptying however this is improved after starting Vesicare. Denies any fever hematuria. Having some mild dysuria. PSA HISTORY: No results found for: PSA , PSAPER ALLERGIES Allergen Reactions Codeine Mental Status Change Oxycodone Other: See Comments Dizziness, syncope solifenacin (VESICARE) 5 mg tablet Take 1 tablet by mouth every afternoon. amoxicillin-clavulanic acid (AUGMENTIN) 500-125 mg per tablet TAKE 1 TABLET (500 MG) BY MOUTH IN THE MORNING AND AT BEDTIME. bicalutamide (CASODEX) 50 mg tablet Take 50 mg by mouth. dicyclomine (BENTYL) 20 mg tablet Take 20 mg by mouth. meloxicam (MOBIC) 7.5 mg tablet TAKE ONE TABLET BY MOUTH TWICE A DAY WITH FOOD NEEDED FOR ARTHRITIS PAIN Lactobac 42/Bifid 8/colost/FOS (PROBIOTIC PLUS COLOSTRUM ORAL) Take by mouth. calcium carbonate/vitamin D3 (CALTRATE 600 + D ORAL) Take by mouth. fluticasone (FLONASE) 50 mcg/actuation nasal spray Use in the nose. REVIEW OF SYSTEMS: D/N = 4-7/2-4 Hematuria: none Dysuria: Yes improving Incontinence: none Urgency: moderate Catheter use: No Medications to aid urination: Vesicare - Total AUA Score: 21 Bowel movement frequency: 1/day Bowel movement quality: normal Blood per rectum: none Last colonoscopy: na Androgen deprivation: Lupron, Casodex PHYSICAL EXAM: BP 147/73 Pulse (!) 58 Temp 36.1 C (97 F) Resp 16 Wt 96.6 kg (213 lb) SpO2 98% BMI 29.50 kg/m KPS: 100 General Appearance: Alert and oriented. No acute distress. Rectal exam is deferred. Perineal area without ecchymosis tenderness or seroma. 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 Prostate cancer (C61), 2019 NCCN Risk Group: High Risk Group Patient overall doing well with improving post-implant urinary issues. No other new problems. Plan to have patient back in 2 weeks for post-implant CT, return for follow-up exam in 4 weeks. He continues close follow-up with Dr. Westfall as well. Signed by: Jennifer Ruiz MD cc: Dr. Westfall documented in this encounter [facility] 08-09-2023 Nurse Note AUA= 21 documented in this encounter [facility] 07-27-2023 Note HNO ID: [id number] Author: Jennifer Ruiz MD Service: ? Author Type: Physician Type: Progress Notes Filed: 07/27/2023 12:43 PM Note Text: Date: 07/27/23 Facility: [facility] Procedure: prostate transperineal brachytherapy implant Sources: Pd-103 Anesthesia:general Urologist: Dr. Westfall This is an operative report supplement to Dr. Barros's note. Prior the the implant patient underwent planning using transrectal ultrasound based. The planning including outline of prostate and planning margin around prostate to deliver 100 Gy using Pd 103 sources. Prior to the procedure on the morning of the implant, patient identified by name and hospital ID bracelet. After anesthesia administered patient placed in dorsal-lithotomy position and ultrasound study done showing good correlation with planning images and excellent visualization of the gland. Implant was then carried out using transperineal technique with active ultrasound and fluoroscopic guidance. At the end of the case the treatment planning ultrasound computer showed captured seed located in expected positions. It was determined to add 4 sources to optimize dose target coverage. A total of 43 seeds, 68.8 mCi using 14 needles. Intraoperative dosimetry reviewed showing D90 of >90%, and excelent coverage of gland by the 100% IDL. After the cystoscopy physics performed survey with meter of patient, cystoscopy fluid, floor, trash, work table and general area. No excess activity seen, results documented. La Ruiz MD [facility] 07-27-2023 History of Present illness Narrative Date: 07/27/23 Facility: [facility] Procedure: prostate transperineal brachytherapy implant Sources: Pd-103 Anesthesia:general Urologist: Dr. Westfall This is an operative report supplement to Dr. Barros's note. Prior the the implant patient underwent planning using transrectal ultrasound based. The planning including outline of prostate and planning margin around prostate to deliver 100 Gy using Pd 103 sources. Prior to the procedure on the morning of the implant, patient identified by name and hospital ID bracelet. After anesthesia administered patient placed in dorsal-lithotomy position and ultrasound study done showing good correlation with planning images and excellent visualization of the gland. Implant was then carried out using transperineal technique with active ultrasound and fluoroscopic guidance. At the end of the case the treatment planning ultrasound computer showed captured seed located in expected positions. It was determined to add 4 sources to optimize dose target coverage. A total of 43 seeds, 68.8 mCi using 14 needles. Intraoperative dosimetry reviewed showing D90 of >90%, and excelent coverage of gland by the 100% IDL. After the cystoscopy physics performed survey with meter of patient, cystoscopy fluid, floor, trash, work table and general area. No excess activity seen, results documented. La Ruiz MD [facility] documented in this encounter [facility] 07-20-2023 Note [id number] [facility] 07-17-2023 Note HNO ID: [id number] Author: Jennifer Ruiz MD Service: ? Author Type: Physician Type: Progress Notes Filed: 07/19/2023 12:34 AM Note Text: JHONATHAN AGUILAR [id number] 07/17/2023 [facility] Department of Radiation Oncology [facility] RADIATION ONCOLOGY BRACHYTHERAPY TREATMENT PLANNING NOTE For reasons stated in the consult note, JHONATHAN AGUILAR is a candidate for definitive radiation. Based on review and interpretation of the relevant diagnostic studies together with the exam findings, JHONATHAN AGUILAR was simulated on 07/05/2023 and the target volume to be treated as well as the critical normal structure(s) were delineated as indicated in the simulation note. I personally reviewed the TRUS and was able to create contours of the volume to be treated and the normal critical structures to be spared. In this particular case, the rectum was deemed to be a critical structure. Special consideration of this was given in light of the potential for increased toxicity if the rectum receives too much radiation dose. After participating in the treatment planning process with medical physics, I approved the best plan to deliver my prescribed course of radiation. The target tissue was planned using pre-planning to allow for the best isodose distribution to deliver a minimum dose of 100 Gy to the prostate. The dose to normal tissue (rectum) and target tissue was confirmed upon review of the calculated dose superimposed on the TRUS images containing the target tissue and the rectum. A completed summary of this plan dated 07/17/2023 incorporated herein by reference includes dose, energy, isodose distribution and DVH. Electronically Signed Kanu Ruiz M.D. / LALIT 34:12 PM [facility] 07-17-2023 History of Present illness Narrative JHONATHAN AGUILAR [id number] 07/17/2023 [facility] Department of Radiation Oncology [facility] RADIATION ONCOLOGY BRACHYTHERAPY TREATMENT PLANNING NOTE For reasons stated in the consult note, JHONATHAN AGUILAR is a candidate for definitive radiation. Based on review and interpretation of the relevant diagnostic studies together with the exam findings, JHONATHAN AGUILAR was simulated on 07/05/2023 and the target volume to be treated as well as the critical normal structure(s) were delineated as indicated in the simulation note. I personally reviewed the TRUS and was able to create contours of the volume to be treated and the normal critical structures to be spared. In this particular case, the rectum was deemed to be a critical structure. Special consideration of this was given in light of the potential for increased toxicity if the rectum receives too much radiation dose. After participating in the treatment planning process with medical physics, I approved the best plan to deliver my prescribed course of radiation. The target tissue was planned using pre-planning to allow for the best isodose distribution to deliver a minimum dose of 100 Gy to the prostate. The dose to normal tissue (rectum) and target tissue was confirmed upon review of the calculated dose superimposed on the TRUS images containing the target tissue and the rectum. A completed summary of this plan dated 07/17/2023 incorporated herein by reference includes dose, energy, isodose distribution and DVH. Electronically Signed Kanu Ruiz M.D. / LALIT 34:12 PM documented in this encounter [facility] 07-06-2023 Note HNO ID: [id number] Author: Jennifer Ruiz MD Service: ? Author Type: Physician Type: Progress Notes Filed: 07/06/2023 3:20 PM Note Text: UNIVERSAL PROTOCOL / SAFETY CHECKLIST Procedure to be Performed: Prostate volume study Sign In: A Moment of CARE was completed. Personnel directly involved with the procedure wore the appropriate PPE (Personal Protective Equipment). Patient/Surrogate Stated/Verified: PATIENT VERIFIED(optional for EMERGENT procedures): Patient name, Date of , Relevant allergies, and The intended procedure Time Out Communication: Intended patient and procedure match the source documents. Consent documented and matches the intended procedure. Sign Out: SIGN OUT (optional for EMERGENT procedures): No specimen collected. All instruments, equipment, possible retained foreign bodies accounted for. Post-procedure follow-up management communicated and Plan of Care Visit completed when applicable. Jennifer Ruiz MD [facility] 07-05-2023 Note HNO ID: [id number] Author: Jennifer Ruiz MD Service: ? Author Type: Physician Type: Progress Notes Filed: 07/06/2023 12:33 AM Note Text: JHONATHAN AGUILAR [id number] 07/05/2023 [facility] Department of Radiation Oncology [facility] RADIATION ONCOLOGY SIMULATION NOTE DATE OF SIMULATION: 07/05/2023 MACHINE: [employer] Focus 500 Diagnosis: 185 (Prostate Gland) AREA:Prostate PATIENT POSITION: Supine CONTRAST: None PROTOCOL: None CONCURRENT THERAPY: None FIXATION DEVICE: UTS Stabilization device by [employer]. PROCEDURE: Patient was simulated in exaggerated dorsal lithotomy position. Serial images of the prostate were acquired using TRUS and reconstructed in 3D space. These images were imported into [employer] Prostate planning system where a plan was generated. ASSESSMENT/PLAN: Patient tolerated simulation procedure well. Electronically Signed Kanu Ruiz M.D. / LALIT :18 PM [facility] 07-05-2023 History of Present illness Narrative JHONATHAN AGUILAR [id number] 07/05/2023 [facility] Department of Radiation Oncology [facility] RADIATION ONCOLOGY SIMULATION NOTE DATE OF SIMULATION: 07/05/2023 MACHINE: [employer] Focus 500 Diagnosis: 185 (Prostate Gland) AREA:Prostate PATIENT POSITION: Supine CONTRAST: None PROTOCOL: None CONCURRENT THERAPY: None FIXATION DEVICE: UTS Stabilization device by [employer]. PROCEDURE: Patient was simulated in exaggerated dorsal lithotomy position. Serial images of the prostate were acquired using TRUS and reconstructed in 3D space. These images were imported into [employer] Prostate planning system where a plan was generated. ASSESSMENT/PLAN: Patient tolerated simulation procedure well. Electronically Signed Kanu Ruiz M.D. / LALIT :18 PM documented in this encounter [facility] 06-02-2023 Note HNO ID: [id number] Author: Jennifer Ruiz MD Service: ? 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 Prostate cancer (C61), 2019 NCCN Risk Group: High Risk Group AREA TREATED: PELVIS DELIVERED DOSE: Area: PELVIS/PROSTATE 4,500 cGy in 25 fractions, 3 ARCS, VMAT, 10MV WITH DAILY CBCT TOTAL: 4,500 cGy in 25 fractions ELAPSED TIME: 37 days. CLINICAL SUMMARY: Patient completed initial radiation with good tolerance. He will return for planned prostate brachytherapy boost. Staff Physician Kanu Ruiz M.D. / NRS :31 PM Electronically Signed cc: Dr. 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 Prostate cancer (C61), 2019 NCCN Risk Group: High Risk Group AREA TREATED: PELVIS DELIVERED DOSE: Area: PELVIS/PROSTATE 4,500 cGy in 25 fractions, 3 ARCS, VMAT, 10MV WITH DAILY CBCT TOTAL: 4,500 cGy in 25 fractions ELAPSED TIME: 37 days. CLINICAL SUMMARY: Patient completed initial radiation with good tolerance. He will return for planned prostate brachytherapy boost. Staff Physician Kanu Ruiz M.D. / NRS :31 PM documented in this encounter [facility] 05-29-2023 Note HNO ID: [id number] Author: Jennifer Ruiz MD Service: ? Author Type: Physician Type: Progress Notes Filed: 05/29/2023 9:10 AM Note Text: Radiation Oncology - On Treatment Review (OTR) Note PATIENT NAME: Jhonathan Aguilar PATIENT DIAGNOSIS: Prostate adenocarcinoma, initial PSA 26.2, biopsy Cannelton score 4 + 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 Prostate cancer (C61), 2018 NCCN Risk Group: High Risk Group Clinical State: Localized Cancer - New Diagnosis COURSE: definitive Current dose: 3780 cGy in 21 fx Planned dose: 4500 cGy in 25 fx SUBJECTIVE: No new problems. PHYSICAL EXAM: 05/29/23 0852 BP: 144/71 Pulse: 72 Resp: 18 Temp: (!) 35.9 ?C (96.7 ?F) SpO2: 97% Weight: 95.3 kg (210 lb) KPS: 100 General Appearance: Alert and oriented. No acute distress. IMAGING/LAB RESULTS: Hemoglobin (g/dL) Date Value 05/04/2023 14.3 Hematocrit (%) Date Value 05/04/2023 40.3 WBC (k/uL) Date Value 05/04/2023 3.99 Platelet Count (k/uL) Date Value 05/04/2023 125 TOXICITY ASSESSMENT (CTC v4.0): Fatigue:grade 0 - No symptoms Radiation Dermatitis: grade 0 - No symptoms Diarrhea:grade 0 - No symptoms Proctitis: grade 0 - No symptoms Urinary frequency: grade 1 Dysuria: grade 0 - No symptoms Urinary incontinence: grade 0 (No symptoms) Urinary retention: grade 0 - No symptoms Treatment chart checked: Yes Patient treatment site reviewed and verified:Yes Port films reviewed and current:Yes Medications started: None ASSESSMENT/PLAN: Clinically stable. Toxicity within expected parameters. Continue radiation treatment as planned. Patient will finish this week. Discussed upcoming brachytherapy boost. 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 Prostate cancer (C61), 2019 NCCN Risk Group: High Risk Group Clinical State: Localized Cancer - New Diagnosis COURSE: definitive Current dose: 3780 cGy in 21 fx Planned dose: 4500 cGy in 25 fx SUBJECTIVE: No new problems. PHYSICAL EXAM: 05/29/23 0852 BP: 144/71 Pulse: 72 Resp: 18 Temp: (!) 35.9 C (96.7 F) SpO2: 97% Weight: 95.3 kg (210 lb) KPS: 100 General Appearance: Alert and oriented. No acute distress. IMAGING/LAB RESULTS: Hemoglobin (g/dL) Date Value 05/04/2023 14.3 Hematocrit (%) Date Value 05/04/2023 40.3 WBC (k/uL) Date Value 05/04/2023 3.99 Platelet Count (k/uL) Date Value 05/04/2023 125 TOXICITY ASSESSMENT (CTC v4.0): Fatigue:grade 0 - No symptoms Radiation Dermatitis: grade 0 - No symptoms Diarrhea:grade 0 - No symptoms Proctitis: grade 0 - No symptoms Urinary frequency: grade 1 Dysuria: grade 0 - No symptoms Urinary incontinence: grade 0 (No symptoms) Urinary retention: grade 0 - No symptoms Treatment chart checked: Yes Patient treatment site reviewed and verified:Yes Port films reviewed and current:Yes Medications started: None ASSESSMENT/PLAN: Clinically stable. Toxicity within expected parameters. Continue radiation treatment as planned. Patient will finish this week. Discussed upcoming brachytherapy boost. Jennifer Ruiz MD documented in this encounter [facility] 05-23-2023 Note HNO ID: [id number] Author: Jennifer Ruiz MD Service: ? Author Type: Physician Type: Progress Notes Filed: 05/23/2023 8:56 AM Note Text: Radiation Oncology - On Treatment Review (OTR) Note PATIENT NAME: Jhonathan Aguilar PATIENT DIAGNOSIS: Prostate adenocarcinoma, initial PSA 26.2, biopsy Cannelton score 4 + 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 Prostate cancer (C61), 2019 NCCN Risk Group: High Risk Group Clinical State: Localized Cancer - New Diagnosis COURSE: definitive Current dose: 3060 cGy in 17 fx Planned dose: 4500 cGy in 25 fx SUBJECTIVE: No new problems. PHYSICAL EXAM: 05/23/23 0835 BP: 165/74 Pulse: 70 Resp: 16 Temp: 36.4 ?C (97.5 ?F) SpO2: 98% Weight: 93.9 kg (207 lb) KPS: 100 General Appearance: Alert and oriented. No acute distress. IMAGING/LAB RESULTS: Hemoglobin (g/dL) Date Value 05/04/2023 14.3 Hematocrit (%) Date Value 05/04/2023 40.3 WBC (k/uL) Date Value 05/04/2023 3.99 Platelet Count (k/uL) Date Value 05/04/2023 125 TOXICITY ASSESSMENT (CTC v4.0): Fatigue:grade 0 - No symptoms Radiation Dermatitis: grade 0 - No symptoms Diarrhea:grade 0 - No symptoms Proctitis: grade 0 - No symptoms Urinary frequency: grade 1 Dysuria: grade 0 - No symptoms Urinary incontinence: grade 0 (No symptoms) Urinary retention: grade 0 - No symptoms Treatment chart checked: Yes Patient treatment site reviewed and verified:Yes Port films reviewed and current:Yes Medications started: None ASSESSMENT/PLAN: Clinically stable. Toxicity within expected parameters. Continue radiation treatment as planned. Jennifer Ruiz MD [facility] 05-23-2023 History of Present illness Narrative Radiation Oncology - On Treatment Review (OTR) Note PATIENT NAME: Jhonathan Aguilar PATIENT DIAGNOSIS: Prostate adenocarcinoma, initial PSA 26.2, biopsy Cannelton score 4 + 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 Prostate cancer (C61), 2019 NCCN Risk Group: High Risk Group Clinical State: Localized Cancer - New Diagnosis COURSE: definitive Current dose: 3060 cGy in 17 fx Planned dose: 4500 cGy in 25 fx SUBJECTIVE: No new problems. PHYSICAL EXAM: 05/23/23 0835 BP: 165/74 Pulse: 70 Resp: 16 Temp: 36.4 C (97.5 F) SpO2: 98% Weight: 93.9 kg (207 lb) KPS: 100 General Appearance: Alert and oriented. No acute distress. IMAGING/LAB RESULTS: Hemoglobin (g/dL) Date Value 05/04/2023 14.3 Hematocrit (%) Date Value 05/04/2023 40.3 WBC (k/uL) Date Value 05/04/2023 3.99 Platelet Count (k/uL) Date Value 05/04/2023 125 TOXICITY ASSESSMENT (CTC v4.0): Fatigue:grade 0 - No symptoms Radiation Dermatitis: grade 0 - No symptoms Diarrhea:grade 0 - No symptoms Proctitis: grade 0 - No symptoms Urinary frequency: grade 1 Dysuria: grade 0 - No symptoms Urinary incontinence: grade 0 (No symptoms) Urinary retention: grade 0 - No symptoms Treatment chart checked: Yes Patient treatment site reviewed and verified:Yes Port films reviewed and current:Yes Medications started: None ASSESSMENT/PLAN: Clinically stable. Toxicity within expected parameters. Continue radiation treatment as planned. Jennifer Ruiz MD documented in this encounter [facility] 05-16-2023 Note HNO ID: [id number] Author: Jennifer Ruiz MD Service: ? Author Type: Physician Type: Progress Notes Filed: 05/16/2023 8:52 AM Note Text: Radiation Oncology - On Treatment Review (OTR) Note PATIENT NAME: Jhonathan Aguilar PATIENT DIAGNOSIS: Prostate adenocarcinoma, initial PSA 26.2, biopsy Cannelton score 4 + 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 Prostate cancer (C61), 2019 NCCN Risk Group: High Risk Group Clinical State: Localized Cancer - New Diagnosis COURSE: definitive Current dose: 2340 cGy in 13 fx Planned dose: 4500 cGy in 25 fx SUBJECTIVE: No new problems. PHYSICAL EXAM: 05/16/23 0841 Pulse: (!) 59 Resp: 16 Temp: 36.1 ?C (97 ?F) SpO2: 98% Weight: 94.8 kg (209 lb) KPS: 100 General Appearance: Alert and oriented. No acute distress. IMAGING/LAB RESULTS: Hemoglobin (g/dL) Date Value 05/04/2023 14.3 Hematocrit (%) Date Value 05/04/2023 40.3 WBC (k/uL) Date Value 05/04/2023 3.99 Platelet Count (k/uL) Date Value 05/04/2023 125 TOXICITY ASSESSMENT (CTC v4.0): Fatigue:grade 0 - No symptoms Radiation Dermatitis: grade 0 - No symptoms Diarrhea:grade 0 - No symptoms Proctitis: grade 0 - No symptoms Urinary frequency: grade 1 Dysuria: grade 0 - No symptoms Urinary incontinence: grade 0 (No symptoms) Urinary retention: grade 0 - No symptoms Treatment chart checked: Yes Patient treatment site reviewed and verified:Yes Port films reviewed and current:Yes Medications started: None ASSESSMENT/PLAN: Clinically stable. Toxicity within expected parameters. Continue radiation treatment as planned. Jennifer Ruiz MD [facility] 05-16-2023 History of Present illness Narrative Radiation Oncology - On Treatment Review (OTR) Note PATIENT NAME: Jhonathan Aguilar PATIENT DIAGNOSIS: Prostate adenocarcinoma, 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 Prostate cancer (C61), 2019 NCCN Risk Group: High Risk Group Clinical State: Localized Cancer - New Diagnosis COURSE: definitive Current dose: 2340 cGy in 13 fx Planned dose: 4500 cGy in 25 fx SUBJECTIVE: No new problems. PHYSICAL EXAM: 05/16/23 0841 Pulse: (!) 59 Resp: 16 Temp: 36.1 C (97 F) SpO2: 98% Weight: 94.8 kg (209 lb) KPS: 100 General Appearance: Alert and oriented. No acute distress. IMAGING/LAB RESULTS: Hemoglobin (g/dL) Date Value 05/04/2023 14.3 Hematocrit (%) Date Value 05/04/2023 40.3 WBC (k/uL) Date Value 05/04/2023 3.99 Platelet Count (k/uL) Date Value 05/04/2023 125 TOXICITY ASSESSMENT (CTC v4.0): Fatigue:grade 0 - No symptoms Radiation Dermatitis: grade 0 - No symptoms Diarrhea:grade 0 - No symptoms Proctitis: grade 0 - No symptoms Urinary frequency: grade 1 Dysuria: grade 0 - No symptoms Urinary incontinence: grade 0 (No symptoms) Urinary retention: grade 0 - No symptoms Treatment chart checked: Yes Patient treatment site reviewed and verified:Yes Port films reviewed and current:Yes Medications started: None ASSESSMENT/PLAN: Clinically stable. Toxicity within expected parameters. Continue radiation treatment as planned. Jennifer Ruiz MD documented in this encounter [facility] 05-08-2023 Note HNO ID: [id number] Author: Jennifer Ruiz MD Service: ? 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 Prostate cancer (C61), 2019 NCCN Risk Group: High Risk Group Clinical State: Localized Cancer - New Diagnosis COURSE: definitive Current dose: 1620 cGy in 9 fx Planned dose: 4500 cGy in 25 fx SUBJECTIVE: Some urinary frequency. Denies obstructive sxs. PHYSICAL EXAM: KPS: 100 General Appearance: Alert and oriented. No acute distress. IMAGING/LAB RESULTS: Hemoglobin (g/dL) Date Value 05/04/2023 14.3 Hematocrit (%) Date Value 05/04/2023 40.3 WBC (k/uL) Date Value 05/04/2023 3.99 Platelet Count (k/uL) Date Value 05/04/2023 125 TOXICITY ASSESSMENT (CTC v4.0): Fatigue:grade 0 - No symptoms Radiation Dermatitis: grade 0 - No symptoms Diarrhea:grade 0 - No symptoms Proctitis: grade 0 - No symptoms Urinary frequency: grade 1 Dysuria: grade 0 - No symptoms Urinary incontinence: grade 0 (No symptoms) Urinary retention: grade 0 - No symptoms Treatment chart checked: Yes Patient treatment site reviewed and verified:Yes Port films reviewed and current:Yes Medications started: None ASSESSMENT/PLAN: Clinically stable. Toxicity within expected parameters. Continue radiation treatment as planned. Jennifer Ruiz MD [facility] 05-08-2023 History of Present illness Narrative Radiation Oncology - On Treatment Review (OTR) Note PATIENT NAME: Jhonathan Aguilar PATIENT DIAGNOSIS: Prostate adenocarcinoma, initial PSA 26.2, biopsy Cannelton score 4 + 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 Prostate cancer (C61), 2019 NCCN Risk Group: High Risk Group Clinical State: Localized Cancer - New Diagnosis COURSE: definitive Current dose: 1620 cGy in 9 fx Planned dose: 4500 cGy in 25 fx SUBJECTIVE: Some urinary frequency. Denies obstructive sxs. PHYSICAL EXAM: KPS: 100 General Appearance: Alert and oriented. No acute distress. IMAGING/LAB RESULTS: Hemoglobin (g/dL) Date Value 05/04/2023 14.3 Hematocrit (%) Date Value 05/04/2023 40.3 WBC (k/uL) Date Value 05/04/2023 3.99 Platelet Count (k/uL) Date Value 05/04/2023 125 TOXICITY ASSESSMENT (CTC v4.0): Fatigue:grade 0 - No symptoms Radiation Dermatitis: grade 0 - No symptoms Diarrhea:grade 0 - No symptoms Proctitis: grade 0 - No symptoms Urinary frequency: grade 1 Dysuria: grade 0 - No symptoms Urinary incontinence: grade 0 (No symptoms) Urinary retention: grade 0 - No symptoms Treatment chart checked: Yes Patient treatment site reviewed and verified:Yes Port films reviewed and current:Yes Medications started: None ASSESSMENT/PLAN: Clinically stable. Toxicity within expected parameters. Continue radiation treatment as planned. Jennifer Ruiz MD documented in this encounter [facility] 05-04-2023 Nurse Note Jhonathan Aguilar presents in office today for: Lab Draw only . Ordering Provider: Kanu Ruiz M.D. Test (s) ordered: CBC Method for obtaining blood: Phlebotomy was performed, accessing right antecubital vein. Needle removed intact. Dressing secured. Patient denies discomfort, dizziness, light-headedness or weakness and left the department without assist. Rosa Lau, RN documented in this encounter [facility] 05-01-2023 Note HNO ID: [id number] Author: Jenniefr Ruiz MD Service: ? Author Type: Physician Type: Progress Notes Filed: 05/01/2023 9:26 AM Note Text: Radiation Oncology - On Treatment Review (OTR) Note PATIENT NAME: Jhonathan Aguilar PATIENT DIAGNOSIS: Prostate adenocarcinoma, initial PSA 26.2, biopsy Cannelton score 4 + 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 Prostate cancer (C61), 2019 NCCN Risk Group: High Risk Group Clinical State: Localized Cancer - New Diagnosis COURSE: definitive Current dose: 720 cGy in 4 fx Planned dose: 4500 cGy in 25 fx SUBJECTIVE: Doing well no new problems or concerns. PHYSICAL EXAM: KPS: 100 General Appearance: Alert and oriented. No acute distress. IMAGING/LAB RESULTS: None TOXICITY ASSESSMENT (CTC v4.0): Fatigue:grade 0 - No symptoms Radiation Dermatitis: grade 0 - No symptoms Diarrhea:grade 0 - No symptoms Proctitis: grade 0 - No symptoms Urinary frequency: grade 0 - No symptoms Dysuria: grade 0 - No symptoms Urinary incontinence: grade 0 (No symptoms) Urinary retention: grade 0 - No symptoms Treatment chart checked: Yes Patient treatment site reviewed and verified:Yes Port films reviewed and current:Yes Medications started: None ASSESSMENT/PLAN: Clinically stable. Toxicity within expected parameters. Continue radiation treatment as planned. 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 Prostate cancer (C61), 2019 NCCN Risk Group: High Risk Group Clinical State: Localized Cancer - New Diagnosis COURSE: definitive Current dose: 720 cGy in 4 fx Planned dose: 4500 cGy in 25 fx SUBJECTIVE: Doing well no new problems or concerns. PHYSICAL EXAM: KPS: 100 General Appearance: Alert and oriented. No acute distress. IMAGING/LAB RESULTS: None TOXICITY ASSESSMENT (CTC v4.0): Fatigue:grade 0 - No symptoms Radiation Dermatitis: grade 0 - No symptoms Diarrhea:grade 0 - No symptoms Proctitis: grade 0 - No symptoms Urinary frequency: grade 0 - No symptoms Dysuria: grade 0 - No symptoms Urinary incontinence: grade 0 (No symptoms) Urinary retention: grade 0 - No symptoms Treatment chart checked: Yes Patient treatment site reviewed and verified:Yes Port films reviewed and current:Yes Medications started: None ASSESSMENT/PLAN: Clinically stable. Toxicity within expected parameters. Continue radiation treatment as planned. Jennifer Ruiz MD documented in this encounter [facility] [place] 04-26-2023 Note HNO ID: [id number] Author: Jennifer Ruiz MD Service: ? Author Type: Physician Type: Progress Notes Filed: 05/01/2023 9:27 AM Note Text: Radiation Oncology - On Treatment Review (OTR) Note PATIENT NAME: Jhonathan Aguilar PATIENT DIAGNOSIS: Prostate adenocarcinoma, initial PSA 26.2, biopsy Cannelton score 4 + 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 Prostate cancer (C61), 2019 NCCN Risk Group: High Risk Group Clinical State: Localized Cancer - New Diagnosis COURSE: definitive Current dose: 180 cGy in 1 fx Planned dose: 4500 cGy in 25 fx SUBJECTIVE: Here to start radiation, doing well. PHYSICAL EXAM: KPS: 100 General Appearance: Alert and oriented. No acute distress. IMAGING/LAB RESULTS: None TOXICITY ASSESSMENT (CTC v4.0): Fatigue:grade 0 - No symptoms Radiation Dermatitis: grade 0 - No symptoms Diarrhea:grade 0 - No symptoms Proctitis: grade 0 - No symptoms Urinary frequency: grade 0 - No symptoms Dysuria: grade 0 - No symptoms Urinary incontinence: grade 0 (No symptoms) Urinary retention: grade 0 - No symptoms Treatment chart checked: Yes Patient treatment site reviewed and verified:Yes Port films reviewed and current:Yes Medications started: None ASSESSMENT/PLAN: Patient starting radiation today. Plan of care and expectations again reviewed. Plan, MU calculations and qa report reviewed. Initial imaging including cone beam ct and verification reviewed and approved. First treatment given. Continue radiation as prescribed. 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 Prostate cancer (C61), 2019 NCCN Risk Group: High Risk Group Clinical State: Localized Cancer - New Diagnosis COURSE: definitive Current dose: 180 cGy in 1 fx Planned dose: 4500 cGy in 25 fx SUBJECTIVE: Here to start radiation, doing well. PHYSICAL EXAM: KPS: 100 General Appearance: Alert and oriented. No acute distress. IMAGING/LAB RESULTS: None TOXICITY ASSESSMENT (CTC v4.0): Fatigue:grade 0 - No symptoms Radiation Dermatitis: grade 0 - No symptoms Diarrhea:grade 0 - No symptoms Proctitis: grade 0 - No symptoms Urinary frequency: grade 0 - No symptoms Dysuria: grade 0 - No symptoms Urinary incontinence: grade 0 (No symptoms) Urinary retention: grade 0 - No symptoms Treatment chart checked: Yes Patient treatment site reviewed and verified:Yes Port films reviewed and current:Yes Medications started: None ASSESSMENT/PLAN: Patient starting radiation today. Plan of care and expectations again reviewed. Plan, MU calculations and qa report reviewed. Initial imaging including cone beam ct and verification reviewed and approved. First treatment given. Continue radiation as prescribed. Jennifer Ruiz MD documented in this encounter [facility] [place] 04-25-2023 Miscellaneous Notes CBC order, during second week of radiation therapy, is pending your approval. Dara Russell LPN documented in this encounter [facility] 04-18-2023 Note HNO ID: [id number] Author: Jennifer Ruiz MD Service: ? Author Type: Physician Type: Progress Notes Filed: 04/20/2023 12:33 AM Note Text: JHONATHAN AGUILAR [id number] 04/18/2023 [facility] Radiation Oncology Department SIMULATION NOTE DATE OF SIMULATION: 04/18/2023 THERAPIST: Charisse Celaya MACHINE: [employer] mCT DIAGNOSIS: Malignant neoplasm of [id number] AREA: PELVIS CONTRAST: None Consent in Epic: Yes PATIENT POSITION: Supine. FIXATION DEVICE: In order to achieve accurate and reproducible treatments, the patient is immobilized with ORFIT AIO. A time-out was conducted and recorded by the therapist. CT scan was completed for target localization and planning. Field arrangement will be determined after plan has been completed. The patient is scheduled for a verification simulation on the treatment machine to ensure proper set-up and field arrangement is correct prior to the first treatment of primary and boost gatica if applicable. Patient education will be completed per nursing. Electronically Signed Kanu Ruiz M.D. / NRS :23 AM [facility] 04-18-2023 Note HNO ID: [id number] Author: Jennifer Ruiz MD Service: ? Author Type: Physician Type: Progress Notes Filed: 04/28/2023 12:15 PM Note Text: JHONATHAN AGUILAR [id number] 04/18/2023 [facility] Department of Radiation Oncology Treatment Planning Note For reasons stated in the consult note, Jhonathan Aguilar is a candidate for radiation therapy. Based on review and interpretation of the relevant diagnostic studies together with the exam findings, Jhonathan Aguilar was simulated on 04/18/2023 at which time the target volume and/or requisite gatica were delineated, as indicated in the simulation note, to be treated according to the prescription. The treatment target and organs at risk were contoured on the simulation scan . After reviewing multiple treatment plans with dosimetry, the best plan was approved to deliver the prescribed course of radiation to the target area using inverse planning to allow for the best isodose distribution, treating to the 97.4% isodose line with 10MV and 3 gatica. Custom MLC asym jaws for IMRT were the treatment devices used to shape/modify the beams. Limiting dose to normal tissue was confirmed upon review of the calculated dose volume histogram. IMRT planning was used because it best met the dose/volume constraints for the organs at risk for this patient, better than what could be achieved using conventional or 3D planning. The specific dose requirements for the PTV, organs at risk and dose-volume histograms are contained in this treatment plan and/or elsewhere in the medical record. A completed summary of this plan dated 04/24/23 incorporated herein by reference includes dose, beam arrangements, energy, blocking, isodose distribution, and/or ports and DVH. Electronically Signed Kanu Ruiz M.D. 2:11 PM [facility] 04-18-2023 History of Present illness Narrative JHONATHAN AGUILAR [id number] 04/18/2023 [facility] Radiation Oncology Department SIMULATION NOTE DATE OF SIMULATION: 04/18/2023 THERAPIST: Charisse Celaya MACHINE: [employer] DIAGNOSIS: Malignant neoplasm of [id number] AREA: PELVIS CONTRAST: None Consent in Epic: Yes PATIENT POSITION: Supine. FIXATION DEVICE: In order to achieve accurate and reproducible treatments, the patient is immobilized with ORFIT AIO. A time-out was conducted and recorded by the therapist. CT scan was completed for target localization and planning. Field arrangement will be determined after plan has been completed. The patient is scheduled for a verification simulation on the treatment machine to ensure proper set-up and field arrangement is correct prior to the first treatment of primary and boost gatica if applicable. Patient education will be completed per nursing. Electronically Signed Kanu Ruiz M.D. 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 Recently diagnosed prostate cancer with no mets and he is going to radiotherapy and now on hormonal therapy Recommendations: ESR 16 CRP<0.2 will trend in 6 months And refilled augmentin 500 mg oral q 12 h for 6 months And when he follows up with Dr Mooney in October advised to call me and I will see him there and yearly after that . Subjective Interval history: A 77 year old man with history of chronic left hip prosthetic joint infection on chronic suppression with augmentin And he is tolerating it well And also recently diagnosed with prostate cancer and no mets And will start radiation in am And no chemo is given just hormonal treatment Objective Physical Examination: BP 143/64 (BP Location: Right arm, Patient Position: Sitting, BP Cuff Size: Adult) Pulse 53 Temp 36.6 ???C (97.8 ???F) (Oral) Ht 1.778 m (5' 10 ) Wt 95 kg (209 lb 6.4 oz) SpO2 96% BMI 30.05 kg/m??? Temperature Range: Temp: 36.6 ???C (97.8 ???F) General Appearance: Awake, alert, and in no apparent distress, nontoxic Eyes: Sclera anicteric; conjunctivae clear Pulmonary/Chest: no respiratory distress Cardiovascular: no fluid overload Extremities: No cyanosis, edema, no joint effusions. Neurologic: Alert and oriented x 3, gait normal., reflexes normal and symmetric, strength and sensation grossly normal Laboratory data: I have independently reviewed the following labs: No lab exists for component: RBCCOUNT;3 No lab exists for component: SODIUM No lab exists for component: PROCALCITON No lab exists for component: TURBIDITY, SPECIFICGRA, PHURINE, LEUKOCYTE, PROTEIN, BLOODHGB, RBCELLS, RENALEPITH No lab exists for component: TOXIGENICC Imaging Studies: Cultures: No results found for any visits on 04/17/23. Medications: This progress note was completed using a voice systems librarian system. Every effort was made to ensure accuracy; however, inadvertent computerized systems librarian errors may be present. Thank you for allowing us to participate in the care of this patient. Thank you for allowing me to see the patient Please call for any questions or concerns, Melly Mata MD [place] Infectious diseases P:[phone] [facility] 04-05-2023 Note HNO ID: [id number] Author: Jennifer Ruiz MD Service: ? Author Type: Physician Type: Progress Notes Filed: 04/05/2023 3:51 PM Note Text: Radiation Oncology - Prostate Cancer New Patient/Consult Note PATIENT NAME: Jhonathan Aguilar PATIENT REQUESTING PROVIDER: Dr. Westfall DIAGNOSIS: 77 year old male with prostate adenocarcinoma, 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 HPI: 77 year old male with prostate adenocarcinoma who presents for an opinion regarding the role of radiation therapy in the management of the patient's disease. Final recommendations will be communicated back to the requesting physician by way of the shared medical record, or letter to requesting physician via [place] mail. The patient was diagnosed with prostate cancer and comes in today to discuss treatment options. Patient presented with an elevated PSA of 26.2. Previous PSA in 2015 1.11. Clinical exam revealed per Dr. Westfall revealed rockhard prostate, nodule left greater than right. Prostate biopsy on March 07, 2023 revealed: 42 cm? gland. Adenocarcinoma Cannelton 8 (4+4) from the left base left lateral mid left lateral apical and right lateral base cores, in addition Ev 74+3 from right base right mid right apical right lateral mid and left mid cores Areas of cribriform histology described Total # of positive biopsy cores: 9 Total # of biopsy cores sampled: 12 Greatest % cancer in any single core: Greater than 50% Staging Studies: Bone Scan Results: 03/24/2023: No evidence of metastatic disease CAT Scan Results: 03/24/2023 CT abdomen and pelvis: No evidence of metastatic disease in the abdomen or pelvis. Previous Treatment for Prostate Cancer: None Genomic Testing: None The patient reports the following pertinent history: Urinary frequency (D/N): 4-6/1-2 Dysuria: No Incontinence: 1- No pads Hematuria: No - Total AUA Score: 13 Bowel Movement Frequency: 1/day Bowel Movement Quality: Normal Blood per Rectum: No Androgen Deprivation: Yes started Lupron 03/27/2023 Prior Radiation Therapy, Collagen Vascular Disease, or Inflammatory Bowel Disease: No Currently on Anticoagulation: No History of Hip Replacement: Yes History of Prior TURP: No ALLERGIES Allergen Reactions Codeine Mental Status Change Oxycodone Other: See Comments Dizziness, syncope bicalutamide (CASODEX) 50 mg tablet Take 50 mg by mouth. dicyclomine (BENTYL) 20 mg tablet Take 20 mg by mouth. fluticasone (FLONASE) 50 mcg/actuation nasal spray Use in the nose. meloxicam (MOBIC) 7.5 mg tablet TAKE ONE TABLET BY MOUTH TWICE A DAY WITH FOOD NEEDED FOR ARTHRITIS PAIN Lactobac 42/Bifid 8/colost/FOS (PROBIOTIC PLUS COLOSTRUM ORAL) Take by mouth. amoxicillin-clavulanic acid (AUGMENTIN) 500-125 mg per tablet TAKE 1 TABLET (500 MG) BY MOUTH IN THE MORNING AND AT BEDTIME. No past medical history on file. No past surgical history on file. No family history on file. Social History Tobacco Use Smoking status: Former Packs/day: 0.50 Years: 10.00 Total pack years: 5.00 Types: Cigarettes, Cigars Start date: 1965 Smokeless tobacco: Current Substance Use Topics Alcohol use: Not Currently Drug use: Never REVIEW OF SYSTEMS: GENERAL: feeling well without fatigue, no recent change in weight NECK: denies swelling or pain in neck RESPIRATORY: no cough, no wheezing or shortness of breath CARDIOVASCULAR: no chest pain, no palpitations MUSCULOSKELETAL: denies any painful or swollen joints, no muscle aches SKIN: no rash NEURO: no numbness or paresthesias and no weakness of the extremities As noted in HPI PHYSICAL EXAM: VS: Resp 18 Ht 181 cm (5' 11.25 ) Wt 94.8 kg (209 lb) BMI 28.95 kg/m? KARNOFSKY PERFORMANCE STATUS: 100 General Appearance: Alert and oriented. No acute distress. HEENT: NCAT. Sclera anicteric. PERRL. EOMI. Neck: Normal ROM. No palpable cervical or supraclavicular adenopathy. Chest: No respiratory distress. Lungs clear to auscultation bilaterally. Heart: Regular rate and rhythm. Abdomen: Soft. Nontender. Nondistended. Musculoskeletal: No edema. Normal ROM in extremities. No bone or spine tenderness. Neuro: Speech fluent. Gait normal. No focal deficits. Skin: No rashes noted Lymphatics: No palpable lymphadenopathy. GENITOURINARY: Deferred exam RECTAL: Deferred exam RADIOLOGY/LABORATORY DATA: see HPI ASSESSMENT/PLAN: Prostate adenocarcinoma, initial PSA 26.2, biopsy Cannelton score 4 + 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 Prostate cancer (C61), 2019 NCCN Risk Group: High Risk Group Clinical State: Localized Cancer - New Diagnosis Patient presents with a localized but high risk adenocarcinoma prostate. Otherwise exce (more content not included)... [facility] 04-05-2023 Note Education (RADTSA) JHONATHAN AGUILAR ([id number]) 1945 M Date Time Provider Department 04/05/23 ROSA LAU Reason for Visit: Patient Education [91] Visit Notes: >> Rosa Lau RN MonApr 05, 2023 2:48 PM Status: Signed Radiation Therapy - Patient Education Note PATIENT NAME: Jhonathan Aguilar PATIENT April 05, 2023 [facility] FACILITY/LOCATION: [facility] READINESS TO LEARN Cognitive Ability: Alert and oriented Motivation to learn: Eager Family Support: High - Very involved in pt care Instruction provide to: Patient and family member Patient learns best by: Written Instruction - Hand-outs Factors effecting learning: None Physical limitations effecting learning: None LEARNING RESPONSE Diagnosis: Pt simulated today for radiation therapy to pelvis. Education Topic/Teaching Points: Radiation therapy, Side effects, and OTV: Method of instruction: Written instruction - handouts Patient /Family response: Patient and family verbalized understanding of radiation treatments, side effects, OTV, and transportation. Follow-up plan: Recommend - Recommend continued instruction and follow up as directed Supplemental material: Informational handouts on Pelvic handout and Prostate external beam. Referral (recommendation): None, Pt denied need for social work, van service, and spring tier. BINDER GIVEN Signed by: Rosa Lau RN During your visit today, we recorded the following information about you: Allergies As of Date: 04/05/2023 Noted Allergy Reaction CODEINE 04/05/2023 1 - Mental Status Change OXYCODONE 04/05/2023 14 - Other: See Comments Comments: Dizziness, syncope Date Reviewed: 04/05/2023 Reviewed by: Rosa Lau, RN - Fully Assessed Prescriptions as of 04/10/2023 - amoxicillin-clavulanic acid (AUGMENTIN) 500-125 mg per tablet TAKE 1 TABLET (500 MG) BY MOUTH IN THE MORNING AND AT BEDTIME. - bicalutamide (CASODEX) 50 mg tablet Take 50 mg by mouth. - dicyclomine (BENTYL) 20 mg tablet Take 20 mg by mouth. - fluticasone (FLONASE) 50 mcg/actuation nasal spray Use in the nose. - meloxicam (MOBIC) 7.5 mg tablet TAKE ONE TABLET BY MOUTH TWICE A DAY WITH FOOD NEEDED FOR ARTHRITIS PAIN - Lactobac 42/Bifid 8/colost/FOS (PROBIOTIC PLUS COLOSTRUM ORAL) Take by mouth. - calcium carbonate/vitamin D3 (CALTRATE 600 + D ORAL) Take by mouth. Encounter Status:Closed by ROSA LAU on 04/10/23 [facility] 04-05-2023 Nurse Note AUA 13 Rosa Lau RN documented in this encounter [facility] 04-05-2023 History of Present illness Narrative Radiation Oncology - Prostate Cancer New Patient/Consult Note PATIENT NAME: Jhonathan Aguilar PATIENT REQUESTING PROVIDER: Dr. Westfall DIAGNOSIS: 77 year old male with prostate adenocarcinoma, 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 HPI: 77 year old male with prostate adenocarcinoma who presents for an opinion regarding the role of radiation therapy in the management of the patient's disease. Final recommendations will be communicated back to the requesting physician by way of the shared medical record, or letter to requesting physician via [place] mail. The patient was diagnosed with prostate cancer and comes in today to discuss treatment options. Patient presented with an elevated PSA of 26.2. Previous PSA in 2014 1.11. Clinical exam revealed per Dr. Westfall revealed rockhard prostate, nodule left greater than right. Prostate biopsy on March 07, 2023 revealed: 42 cm gland. Adenocarcinoma Ev 8 (4+4) from the left base left lateral mid left lateral apical and right lateral base cores, in addition Ev 74+3 from right base right mid right apical right lateral mid and left mid cores Areas of cribriform histology described Total # of positive biopsy cores: 9 Total # of biopsy cores sampled: 12 Greatest % cancer in any single core: Greater than 50% Staging Studies: Bone Scan Results: 03/24/2023: No evidence of metastatic disease CAT Scan Results: 03/24/2023 CT abdomen and pelvis: No evidence of metastatic disease in the abdomen or pelvis. Previous Treatment for Prostate Cancer: None Genomic Testing: None The patient reports the following pertinent history: Urinary frequency (D/N): 4-6/1-2 Dysuria: No Incontinence: 1- No pads Hematuria: No - Total AUA Score: 13 Bowel Movement Frequency: 1/day Bowel Movement Quality: Normal Blood per Rectum: No Androgen Deprivation: Yes started Lupron 03/27/2023 Prior Radiation Therapy, Collagen Vascular Disease, or Inflammatory Bowel Disease: No Currently on Anticoagulation: No History of Hip Replacement: Yes History of Prior TURP: No ALLERGIES Allergen Reactions Codeine Mental Status Change Oxycodone Other: See Comments Dizziness, syncope bicalutamide (CASODEX) 50 mg tablet Take 50 mg by mouth. dicyclomine (BENTYL) 20 mg tablet Take 20 mg by mouth. fluticasone (FLONASE) 50 mcg/actuation nasal spray Use in the nose. meloxicam (MOBIC) 7.5 mg tablet TAKE ONE TABLET BY MOUTH TWICE A DAY WITH FOOD NEEDED FOR ARTHRITIS PAIN Lactobac 42/Bifid 8/colost/FOS (PROBIOTIC PLUS COLOSTRUM ORAL) Take by mouth. amoxicillin-clavulanic acid (AUGMENTIN) 500-125 mg per tablet TAKE 1 TABLET (500 MG) BY MOUTH IN THE MORNING AND AT BEDTIME. No past medical history on file. No past surgical history on file. No family history on file. Social History Tobacco Use Smoking status: Former Packs/day: 0.50 Years: 10.00 Total pack years: 5.00 Types: Cigarettes, Cigars Start date: 1965 Smokeless tobacco: Current Substance Use Topics Alcohol use: Not Currently Drug use: Never REVIEW OF SYSTEMS: GENERAL: feeling well without fatigue, no recent change in weight NECK: denies swelling or pain in neck RESPIRATORY: no cough, no wheezing or shortness of breath CARDIOVASCULAR: no chest pain, no palpitations MUSCULOSKELETAL: denies any painful or swollen joints, no muscle aches SKIN: no rash NEURO: no numbness or paresthesias and no weakness of the extremities As noted in HPI PHYSICAL EXAM: VS: Resp 18 Ht 181 cm (5' 11.25 ) Wt 94.8 kg (209 lb) BMI 28.95 kg/m KARNOFSKY PERFORMANCE STATUS: 100 General Appearance: Alert and oriented. No acute distress. HEENT: NCAT. Sclera anicteric. PERRL. EOMI. Neck: Normal ROM. No palpable cervical or supraclavicular adenopathy. Chest: No respiratory distress. Lungs clear to auscultation bilaterally. Heart: Regular rate and rhythm. Abdomen: Soft. Nontender. Nondistended. Musculoskeletal: No edema. Normal ROM in extremities. No bone or spine tenderness. Neuro: Speech fluent. Gait normal. No focal deficits. Skin: No rashes noted Lymphatics: No palpable lymphadenopathy. GENITOURINARY: Deferred exam RECTAL: Deferred exam RADIOLOGY/LABORATORY DATA: see HPI ASSESSMENT/PLAN: Prostate adenocarcinoma, initial PSA 26.2, biopsy Cannelton score 4 + 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 Prostate cancer (C61), 2019 NCCN Risk Group: High Risk Group Clinical State: Localized Cancer - New Diagnosis Patient presents with a localized but high risk adenocarcinoma prostate. Otherwise excellent performance status. Options of management discussed at length. Discussed both surgical and radiation approaches. Patient not interested in surgical approach. Patient not appropriate for watchful waiting. In terms of radiation we discussed both external beam brachytherapy in combination of the 2. Also discussed addition of ADT and discussed results of the ASCENDE-RT trial combining external beam with brachytherapy boost and ADT. Patient is interested in this approach. Discussed both acute and long-term effects of radiation. Discussed radiation safety precautions. Patient and expressed understanding the information presented. We will plan to have him back in April to initiate treatment planning for external beam treatment plan 45 Gy to the pelvis followed by brachytherapy boost. We will coordinate brachytherapy boost with Dr. Westfall. Signed by: Jennifer Ruiz MD cc: To use this Smartlink, specify the provider ID whose address you want to display, e.g., .[email or web address][1 (where 1 is the provider ID). German Westfall [id number] [place] [address] documented in this encounter [facility] 03-27-2023 Hospital Discharge instructions Patient Education 03/27/2023 10:32:15 Hormone Suppression Therapy for Prostate Cancer Hormone Suppression Therapy for Prostate Cancer Hormone suppression therapy is a treatment for prostate cancer that can help slow the growth of cancer cells in the prostate gland. It is also called androgen deprivation therapy (ADT) or androgen suppression therapy. Hormone suppression therapy targets male sex hormones (androgens) in the body that help cancer cells grow. Hormone suppression therapy alone will not cure prostate cancer, but it can slow the growth of cancer cells and may shrink tumors over time. Your health care provider can help you find the best treatment that fits your lifestyle. Hormone suppression therapy may be used in the following cases: When prostate cancer has spread too far to other places in the body and cannot be cured by surgery or radiation. When a person has health problems that prevent the use of surgery or radiation. Before radiation to help shrink the size of the cancer and make the radiation treatment more effective. If the prostate cancer remains or comes back following treatment with surgery or radiation. What are the types of hormone suppression therapy? Orchiectomy Orchiectomy, also called surgical castration, is a surgery to remove one or both testicles. The testicles make the two main androgens testosterone and dihydrotestosterone (DHT). This surgery reduces the levels of testosterone in the blood, leading to decreased androgen production. Medicine therapy Medicine therapy, also called medical or chemical castration, involves taking medicines to keep your body from making or using androgens. Medicines can do this in one of three ways: 1.Reducing androgen production by the testicles. Luteinizing hormone-releasing hormone (LHRH) agonists. These medicines are injected or implanted under your skin to lower the amount of androgens that your testicles make. Depending on the medicine, they can be given monthly or up to every 3 to 6 months. If you take these medicines, you may also be prescribed other medicines to help with side effects. LHRH antagonists. These medicines also work to lower the amount of androgens made in the testicles, but they work faster than LHRH agonist medicines and have less severe side effects. They are given as a monthly injection under the skin, and they are used when prostate cancer is in an advanced stage. Estrogens. These medicines are female hormones that help to reduce androgen production by the testicles. Estrogens are not used as commonly as other types of hormone suppression therapy due to their side effects. However, they may be used if other treatments do not work. 2.Blocking androgen attachment throughout the body. Anti-androgen medicines, also called androgen receptor antagonists, block areas on the body where androgens attach. These are pills that are usually used in combination with other types of hormone suppression therapy, like orchiectomy and other medicines. 3.Blocking androgen production throughout the body. Androgen synthesis inhibitor medicines. These medicines help to stop other areas of the body from making androgens. They are taken as pills. They may be used if the prostate cancer is advanced and has not gotten better with surgery or other medicines. A steroid medicine may be given with this type of medicine to help with side effects. What are the risks? Hormone suppression therapy may cause side effects, including: Hot flashes. Diarrhea and nausea. Itching. Sexual side effects, such as: ?Decrease or lack of sexual desire. ?Decrease in size of the penis or testicles. ?Inability to get an erection (erectile dysfunction, or impotence). ?Breast tenderness or increase in breast size. Fatigue. Weight gain. Anemia. Thinning of the bones (osteoporosis) and loss of muscle mass. Depression, mood swings, and trouble with thinking or focusing. Hormone suppression therapy may also increase your risk of high blood pressure, increased cholesterol levels, stroke, heart attack, or diabetes. What are the benefits? One of the main benefits of hormone suppression therapy is having additional treatment options. You may have only one type of treatment, or two or more types at the same time. Treatments may be combined to: Help with side effects. Treat advanced cancer. Where to find more information [employer]: www.cancer.org National Cancer [place]: www.cancer.gov Contact a health care provider if: You have pain or side effects that do not get better with treatment. You have trouble urinating. You have new side effects that do not go away. Get help right away if: You have severe chest pain. You have trouble breathing. You have an irregular heartbeat. You have numbness or paralysis in the lower half of your body. You are confused. You have trouble talking or understanding speech. These symptoms may be an emergency. Do not wait to see if the symptoms will go away. Get medical help right away. Call your local emergency services (911 in the [place] Do not drive yourself to the hospital. Summary Hormone suppression therapy is a treatment for prostate cancer that can help to slow the growth of cancer cells in the prostate gland. Hormone suppression therapy alone will not cure prostate cancer, but it can slow the growth of prostate cancer and may shrink tumors over time. Treatment to suppress hormones may include surgery or medicines. Side effects such as hot flashes, changes in sexual function or desire, and weakened bones can result from hormone suppression therapy. This information is not intended to replace advice given to you by your health care provider. Make sure you discuss any questions you have with your health care provider. Document Revised: 12/16/2021 Document Reviewed: 12/16/2021 [employer] Patient Education 2022 [employer]. 03/27/2023 10:32:10 Brachytherapy for Prostate Cancer Brachytherapy for Prostate Cancer Brachytherapy for prostate cancer is a type of internal radiation treatment that involves placing a source of radiation right inside the prostate gland. This allows the delivery of a higher dose of radiation than would be possible with external radiation therapy treatment. There are many types of brachytherapy: Low-dose rate (LDR) therapy. This involves temporary or permanent implants of radioactive seeds or pellets that give off a low dose of radiation. ?Temporary low-dose implants are left in the prostate for 1 7 days. The radioactive material is contained within a delivery tool, which may be a needle, a small, thin tube (catheter), or another type of applicator. You will need to stay in the hospital while the delivery tool and radioactive material are in place. ?Permanent low-dose implants are left in the prostate. They slowly give off radiation for many months after they are inserted. After the radiation is gone, they just stay in the body. They do not cause any harm and are not removed. High-dose rate (HDR) therapy. This involves inserting a material that gives off a higher dose of radiation for only a few minutes. The radioactive material is often wires or ribbons contained within a delivery tool (needle, applicator, or catheter). The delivery tool is removed after treatment, and no radioactive material is left in the prostate. In brachytherapy, the radiation does not travel far from the prostate, so healthy tissues around the prostate receive only a small dose of radiation. This helps to protect those tissues from injury. In some cases, brachytherapy may be given along with external beam radiation. Tell a health care provider about: Any allergies you have. All medicines you are taking, including vitamins, herbs, eye drops, creams, and qevk-pox-lhccxar medicines. Any problems you or family members have had with anesthetic medicines. Any bleeding problems you have. Any surgeries you have had. Any medical conditions you have. Any prostate infections you have had. What are the risks? Generally, this is a safe procedure. However, problems may occur, including: Inflammation of the rectum. Problems getting or keeping an erection (erectile dysfunction). Inability to control when you urinate or have bowel movements (incontinence). Damage to nearby structures or organs. Diarrhea. Bleeding. What happens before the procedure? Staying hydrated Follow instructions from your health care provider about hydration, which may include: Up to 2 hours before the procedure you may continue to drink clear liquids, such as water, clear fruit juice, black coffee, and plain tea. Eating and drinking restrictions Follow instructions from your health care provider about eating and drinking, which may include: 8 hours before the procedure stop eating heavy meals or foods, such as meat, fried foods, or fatty foods. 6 hours before the procedure stop eating light meals or foods, such as toast or cereal. 6 hours before the procedure stop drinking milk or drinks that contain milk. 2 hours before the procedure stop drinking clear liquids. Medicines Ask your health care provider about: ?Changing or stopping your regular medicines. This is especially important if you are taking diabetes medicines or blood thinners. ?Taking medicines such as aspirin and ibuprofen. These medicines can thin your blood. Do not take these medicines unless your health care provider tells you to take them. ?Taking dyox-xwq-varslau medicines, vitamins, herbs, and supplements. Follow your health care provider's instructions about cleaning out your bowels. Surgery safety Ask your health care provider: How your surgery site will be marked. What steps will be taken to help prevent infection. These may include: ?Removing hair at the procedure site. ?Washing skin with a germ-killing soap. ?Taking antibiotic medicine before and after the procedure. General instructions You may have exams or testing done before or after the procedure. Blood or urine samples may be taken. You may need imaging tests, such as a CT scan or an MRI. Do not use any products that contain nicotine or tobacco for at least 4 weeks before the procedure. This includes cigarettes, chewing tobacco, and vaping devices, such as e-cigarettes. If you need help quitting, ask your health care provider. Plan to have a responsible adult take you home from the hospital or clinic. Plan to have a responsible adult care for you for the time you are told after you leave the hospital or clinic. What happens during the procedure? An IV will be put into one of the veins in your arm or hand. You may be given: ?A medicine to help you relax (sedative). ?A medicine to numb the area (local anesthetic). ?A medicine to make you fall asleep (general anesthetic). A thin, flexible tube (Bunch catheter) might be put into your penis, through your urethra, and into your bladder to drain your urine. Your surgeon will insert the radioactive material. The method used will depend on whether you are receiving temporary or permanent brachytherapy. Temporary low-dose or high-dose brachytherapy A delivery tool (needle, applicator, or catheter) will be put into the prostate. It will be inserted through a body cavity, like the rectum, or through the perineum, which is the area beneath the scrotum. An X-ray, ultrasound, MRI, or CT scan will be used to guide the delivery tool into the prostate. Radioactive seeds, pellets, wires, or ribbons will be fed through the delivery tool. If the high-dose method is used: ?The radioactive material will be left in for a few minutes and then removed. ?When the treatment is finished, the delivery tool will be removed. If the low-dose method is used: ?The delivery tool containing the radioactive material will stay in place for 1 7 days. ?You will stay in the hospital while the implant is in place. ?When the treatment is finished, the radioactive material and delivery tool will be removed. Permanent low-dose brachytherapy A tube or needle will be used to inject small, radioactive seeds or pellets into your prostate. The needle or tube will be removed, leaving the seeds or pellets in the prostate. The procedure may vary among health care providers and hospitals. What happens after the procedure? Your blood pressure, heart rate, breathing rate, and blood oxygen level will be monitored until you leave the hospital or clinic. If you were given a sedative during the procedure, it can affect you for several hours. Do not drive or operate machinery until your health care provider says that it is safe. If radiation seeds were left in your prostate, be sure you understand any safety precautions you are to follow at home. Summary Brachytherapy for prostate cancer is a type of radiation treatment that involves placing a source of radiation right inside the prostate gland. There are several types of brachytherapy for prostate cancer: low-dose temporary treatment, low-dose permanent treatment, and high-dose temporary treatment. The amount of time that the source of radiation is left in your prostate will depend on the type of brachytherapy you are having. This information is not intended to replace advice given to you by your health care provider. Make sure you discuss any questions you have with your health care provider. Document Revised: 12/01/2021 Document Reviewed: 12/01/2021 [employer] Patient Education 2022 [employer]. Follow Up Care 03/15/2023 11:47:48 With:MALOU MCGREGOR, German Colmenares, URL Address: [facility] [address], [place] [phone] When: Unknown Comments:referral to rad onc [facility] 03-07-2023 Note [id number]:[id number] [facility] 03-07-2023 Hospital Discharge instructions Patient Education 03/07/2023 09:02:09 [facility] - Transrectal Ultrasound of the Prostate with US guided biopsy Discharge Instructions (CUSTOM) Transrectal Ultrasound of the Prostate with US guided biopsy Even though there are no visible incisions, multiple prostate biopsies have been taken through the rectum and you need to follow some instructions to minimize the risks of bleeding. You may see some blood in your urine and stool for up to 1 week (and blood in the semen for several months) Diet -You may resume your normal diet, but you may want to avoid alcohol, carbonated drinks, caffeine, and spicy foods, which may increase the irritation from the surgery. -Drink plenty of water to keep the urine clear. Activity -You should limit any physical activity for about 48 hours -No heavy lifting or straining (10 pound limit) -No driving a car and limit long car rides for 2 days -No strenuous exercise -No sexual intercourse until this is discussed with your doctor Bowels -Try to keep your bowel movements soft to minimize straining to have a bowel movement. -You may use a stool softener or over the counter laxative if needed -Difficult bowel movement may lead to straining and bleeding from the prostate Medications -You may resume your home medications unless instructed otherwise -Hold aspirin, ibuprofen, Coumadin (warfarin) and other blood thinners for about two days or until there is no active bleeding unless otherwise instructed -Finish the antibiotic which you have already started Things to watch for which would require an Emergency Room visit or call 911: (this is not a complete list) -Persistent or heavy bleeding or blood clots from the rectum or in the urine -Inability to urinate -Fever over 101.5 degrees Fahrenheit, with or without chills -Severe drug reactions with itching, hives or rash -Tenderness or swelling of the calves, chest pain, or shortness of breath Please call the office to arrange for your post-operative appointment in 1-2 weeks [phone] or [phone] Follow Up Care 03/01/2023 11:26:32 With:German WESTFALL Address: [facility] [address] [place] [address]- Business (1) When: Unknown Comments:Keep scheduled appointment [facility] 03-01-2023 Note Chief Complaint pt here today as a PULL OVER referral for elevated PSA HPI Staff Pt referred by Uday Wilson MD due to elevated PSA. Current PSA 26.2 done 02/10/23. Only other PSA found done 09/25/2014 was 1.11. Dysuria: denies Incomplete bladder emptying: denies Hematuria: denies Frequency: denies Urgency: denies Nocturia: 2x Stream: weak stream, no stop start Leaking: denies Post void dripping: denies Wearing pads/ Depends: denies Urge incontinence: denies Stress incontinence: denies Incontinence without Sensory Awareness: denies Abdominal pain: denies Flank pain: left side last week Sexual complaints: _ History of Present Illness Tests reviewed: reviewed UA I have reviewed the previous health record information and history for this patient from external providers. I have reviewed and verified the staff HPI to be accurate for this encounter. There have been no associated fever, chills, flank pain, or blood in the urine. Denies any urinary infections since last encounter. Review of Systems PHQ Score Initial Depression Screen Score: 0 ROS - Provider Constitutional: denies weight loss, denies hot flashes. Eyes: denies eye problems. Gastrointestinal: denies nausea, denies vomiting. Cardiovascular: denies chest pain or angina. Integumentary: no dryness Musculoskeletal: denies musculoskeletal symptoms. ENMT: denies otolaryngeal symptoms. Respiratory: no shortness of breath. Heme/Lymph: denies easy bleeding tendency, denies easy bruising tendency. Psychiatric: no confusion, no anxiety. Genitourinary: denies dysuria, denies hematuria, denies discharge, denies urinary frequency, denies urinary hesitancy, denies nocturia, denies incontinence, denies genital sores, denies decreased libido, and denies erectile dysfunction. Physical Exam Vitals & Measurements HR: 63(Peripheral) BP: 134/73 HT: 70 in HT: 178 cm General Appearance: alert, no distress, well nourished, well developed male. Head: normocephalic . Eyes: normal orbit and globe. ENMT: normal examination of external ears. Chest: Lungs CTA, respirations non labored. Cardiovascular: regular rate and rhythm. Abdomen: soft, non distended, no tenderness, no mass or organomegaly, no hernia. Genitourinary: normal scrotum, normal testes, normal urethra, normal epididymis, normal vas deferens/spermatic cord. 5cm right spermatocele Flank Pain: none. Bladder: nonpalpable. Penis: normal shaft, normal glans. Prostate: abnormal prostate, estimated weight 40 gms, yes hard nodule observed. rock hard prostate L >>R Lymph Nodes: unremarkable palpation of the cervical area. Skin: warm, dry, no bruising. Psychiatric: cooperative, affect appropriate for age, normal judgement, euthymic mood.. Assessment/Plan 1. Elevated PSA (R97.20: Elevated prostate specific antigen [PSA]) Most recent PSA 26.2 done 02/10/23, previous PSA 1.11 done 09/25/14. He has an elevated PSA, which could indicate prostate cancer, prostate infection, prostate inflammation without infection, prostate manipulation, or benign prostate enlargement (BPH). The importance of the rate of PSA rise has also been discussed. The options for management have been discussed, including prostate biopsy versus close monitoring of the PSA over time. UA today is negative for blood and infection. Pt denies any bothersome urinary sxs at this time. JEFERSON: abnormal IPSS 7, QoL 5 Follow up w/ TRUS/bx. Pt understands and agrees with plan. 2. Family history of prostate cancer (Z80.42: Family history of malignant neoplasm of prostate) Pt's father had prostate/colon cancer, treated with radiation seeds. 3. Former smoker (Z87.891: Personal history of nicotine dependence) Pt was a smoker from [id number]. Pt understands the increased risk for cancer associated with the bladder. Follow-up With When Contact Information MALOU MCGREGOR, German Colmenares, URL [facility] [address] [place] [address] [phone] Additional Instructions: TRUS/bx Patient Education Cancer Screening for Men Ronnie, Denisha Diana, personally scribed for Dr. Westfall on 03/01/2023 10:59:41. . Documentation recorded by the scribe, Denisha Diana, accurately reflects the services(s) I performed and decisions made by me. Authenticated by Dr. Westfall on 03/01/2023 11:03:24. 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 Medications Augmentin 500 mg-125 mg Tab, 500 mg, Oral, q12hr dicyclomine 20 mg Tab, 20 mg= 1 tab(s), Oral, QID, RI (more content not included)... [facility] Comment on above: Result Comment: Elec tronically Signed By: German WESTFALL MD\.br\Date and Time Signed: 03/01/23 11:03 EDT\.br\Electronically Co-Signed By: Denisha Diana\.br\Date and Time Co-Signed: 03/01/23 11:00 EDT 03-01-2023 Hospital Discharge instructions Patient Education 03/01/2023 10:56:04 Cancer Screening for Men Cancer Screening for Men A cancer screening is a test or exam that checks for cancer. Your health care provider will recommend specific cancer screenings based on your age, medical history (including risk factors), and family history of cancer. Work with your health care provider to create a cancer screening schedule that protects your health. Who should have screening? All men should be considered for screening of certain cancers, including colorectal cancer, prostate cancer, lung cancer, and skin cancer. Your health care provider may recommend screenings for other types of cancer if: You had cancer before. You have a family member with cancer. You have abnormal genes that could increase the risk of cancer. You have risk factors for certain cancers, such as current or past use of tobacco products, or being overweight. When you should be screened for cancer depends on: Your age. Your medical history and your family's medical history. Certain lifestyle factors, such as smoking or other use of tobacco products. Environmental exposure, such as to asbestos. How is screening done? Colorectal cancer All adults should have screenings starting at age 45 and continuing until age 75. Your health care provider may recommend screening before age 45. You will have tests every 1 10 years, depending on your results and the type of screening test. People at increased risk should start screening at an earlier age. Talk with your health care provider about which screening test is right for you and how often you should be screened. Colorectal cancer screening looks for cancer or for growths called polyps that often form before cancer starts. Tests to look for cancer or polyps include: Colonoscopy or flexible sigmoidoscopy. For these procedures, a flexible tube with a small camera is inserted into the rectum. CT colonography. This test uses X-rays and a contrast dye to check the colon for polyps. If a polyp is found, you may need to have a colonoscopy so the polyp can be located and removed. Tests to look for cancer in the stool (feces) include: Guaiac-based fecal occult blood test (FOBT). This test can find blood in stool. It can be done at home with a kit. Fecal immunochemical test (FIT). This test can find blood in stool. For this test, you will need to collect stool samples at home. Stool DNA test. This test looks for blood in stool and any changes in DNA that can lead to colon cancer. For this test, you will need to collect a stool sample at home and send it to a lab. Prostate cancer Prostate cancer screening for men with average risk may start at age 50. Men with risk factors may need to be screened earlier, at ages 40 45. Talk with your health care provider about whether screening is right for you and, if so, how often you should be screened. Prostate cancer screening is done with blood tests and a digital rectal exam. During this exam, a health care provider uses a gloved finger to check prostate size. You may need to be screened for prostate cancer if: You have risk factors for prostate cancer, such as being or having a close family member with prostate cancer. You have had gene changes or a genetic condition that was passed on to you from a parent (inherited). These gene changes or genetic conditions include BRCA1 or BRCA2 gene mutations or Holder syndrome. You have symptoms of prostate cancer, such as problems urinating or problems getting or keeping an erection (erectile dysfunction). When you have been screened for prostate cancer, future screening may be recommended based on the results of your blood tests. Lung cancer Lung cancer screening is done with a CT scan that looks for abnormal changes in the lungs. Discuss lung cancer screening with your health care provider if you are 50 80 years old and if any of the following apply to you: You currently smoke. You used to smoke heavily. You have a smoking history of 1 pack of cigarettes a day for 20 years or 2 packs a day for 10 years. You have quit smoking within the past 15 years. You may need to be screened every year if you smoke heavily or if you used to smoke. Skin cancer Skin cancer screening is done by checking the skin for unusual moles or spots and any changes in existing moles. Your health care provider should check your skin for signs of skin cancer at every physical exam. You should check your skin every month and tell your health care provider right away if anything looks unusual. Men with a ujbvgn-ntxy-hnxnxe risk for skin cancer may want to see a retail customer service specialist (bindery machine tender) for an annual body check. What are the benefits of screening? Cancer screening is done to look for cancer in the very early stages, before it spreads and becomes harder to treat and before you would start to notice symptoms. Finding cancer early improves the chances of successful treatment. It may save your life. Where to find more information [employer]: www.cancer.org Centers for Disease Control and Prevention: www.cdc.gov National Cancer [place]: www.cancer.gov Contact a health care provider if: You have concerns about any signs or symptoms of cancer. These may include: Skin problems. You may have: ?Moles of an unusual shape or color. ?Changes in existing moles. ?A sore on your skin that does not heal. Tiredness (fatigue) that does not go away. Losing weight without trying. Blood in your urine or stool. Problems with urination. You may have: ?Changes in urination habits. ?Painful urination. Painful ejaculation. Problems with coughing or breathing. These may include: ?Coughing or trouble breathing that does not go away. ?Coughing up blood. Frequent pain or cramping in your abdomen. Summary Your health care provider will recommend specific cancer screenings based on your age, medical history, and family history of cancer. Work with your health care provider to create a cancer screening schedule that protects your health. Finding cancer early improves the chances of successful treatment. It may save your life. Contact a health care provider if you have concerns about any signs or symptoms of cancer. This information is not intended to replace advice given to you by your health care provider. Make sure you discuss any questions you have with your health care provider. Document Revised: 01/31/2022 Document Reviewed: 07/31/2020 [employer] Patient Education 2022 [employer]. Follow Up Care 02/15/2023 16:20:20 With:MALOU MCGREGOR, German Colmenares, URL Address: [facility] [address] , [place] [address]- [phone] When: Unknown Comments:TRUS/bx [facility] 02-27-2023 Note Call to request lab orders be faxed to [facility] for pt to get drawn prior to I.D. joshua . Faxed. [facility] 12-02-2022 Note Orthopedic Surgery Subjective Chief complaint: Chief Complaint Patient presents with Left Hip - Follow-up, Pain 12/02/22 Jhonathan Aguilar is a 77 y.o. year old male presenting for evaluation of left revision hip arthroplasty with some discomfort over the lateral aspect of the hip joint as well as over the medial groin region which he felt coming as a sharp pain about 2 to 3 weeks ago. 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 Patient is now almost 5 months following his revision hip arthroplasty. 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 Patient denies any new trauma. Patient denies any fall. He denies any fever, chills or rigors or any breathlessness. He feels a sharp snapping pain on the lateral aspect of the hip joint on occasions when he moves in a certain direction. He denies any start of pain. Patient does not have any pain when he is sitting. Most of his pain is when he is walking in a certain direction. He has been accompanied by his today. 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 Patient History Past Surgical History: Procedure Laterality Date BACK SURGERY X2 CARPAL TUNNEL RELEASE Bilateral 2010 FINGER SURGERY [place] GUIDED ASPIRATION OR INJECTION LARGE JOINT BILATERAL Bilateral 12/16/2021 [place] GUIDED ASPIRATION OR INJECTION LARGE JOINT BILATERAL OTT CONVERSION JOINT REPLACEMENT Left HIP Past Medical History: Diagnosis Date Cataract Irritable bowel syndrome Lumbar spine pain Osteoarthritis Objective General: Body mass index is 29.56 kg/m???. No acute distress, comfortable Respiratory: Unlabored breathing with normal rate, no cough Cardiovascular: Warm well perfused extremities Psych: Appropriate mood behavior Left hip has been examined as well as lumbosacral spine: Patient has a scar over the lumbosacral spine from his extensive back surgery, loss of lumbar lordosis noted, no step noted, tenderness in the left SI joint noted, this is not major, patient does have tenderness over the left trochanter bursa along with scarring and small calcific density that moves when he walks which he feels is a snapping sensation. This he believes is not as painful as the psoas tendon over the medial groin. This is felt when he tries to do external rotation in a certain direction. Patient denies any fever, chills or rigors or any breathlessness. Patient does not have any localized collection of the groin. Stinchfield sign is negative, range of motion of the hip joint is well-maintained with flexion to about 90 degrees abduction 35 to 40 degrees, adduction 15 degrees internal rotation 5 to 10 degrees, external rotation 15 to 20 degrees. Power in the lower extremities 4+ out of 5. Paresthesia around the distribution of the L5-S1 and L4-L5 noted from his previous failed back syndrome. No thigh pain noted. Mild wasting of the hip girdle muscles noted. Imaging personally reviewed: X-rays of the left hip joint along with the pelvis of both hips were repeated today in the office and these were compared with his previous x-rays which showed the lucencies in the acetabular cyst which have been packed with bone graft which continue to be visualized which are minimal. There is no evidence of any major new loosening of the acetabular component. Soft tissue swelling around the psoas tendon noted which may suggest psoas tendinitis. Calcification around the lateral aspect of the trochanter suggestive of chronic trochanteric bursitis noted. These details were explained to the patient and his . No evidence of any loosening of the femoral component noted. Assessment/Plan Jhonathan Aguilar is a 77 y.o. 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 As long as he does not have any severe pain we can continue to watch this. He may try taking his Tylenol with his meloxicam which seems to be helping him. Patient has been on meloxicam for long period Of time. He will be following up with his PCP for any future close monitoring for the meloxicam. For the medial groin pain I explained to him that he does have some psoas tendinitis and if continues to have severe pain he may want to try cortisone injection with pain management. Patient declined referral to pain management today. He has been active and I recommended that he uses a cane when he walks for long distances. Alternatively he may want to change from meloxicam to other NSAIDs which she wants to hold off at this point in time. Patient will continue to watch for any fever chills or rigors or breathless (more content not included)... 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 This was independent review the patient has done well with regard to his radicular complaints and is very happy with his result he has significant osteoarthritic problems that are causing him pain such as trochanteric bursitis of the left hip and knee and he has difficulty with overall knee movement and pain secondary to generalized arthritis. These are bigger problems than his back at this point. I will see him again in 1 year for reevaluation. Aug, Spondylosis of lumbosacral region without myelopathy or radiculopathy (ICD-10 - M47.817) Aug, Presence of left artificial hip joint (ICD-10 - Z96.642) Aug, Primary osteoarthritis involving multiple joints (ICD-10 - M15.9) [facility] Other 11-14-2016 History general Narrative - Reported* Type Description Date Medical History osteoarthritis Medical History back trouble Medical History left hip pain Surgical History left hip 08/01/2016 Surgical History PLIF- Dr. Harkins 2013 Surgical History Back surgery 2013 Surgical History Right Thumb Repair 2014 Surgical History Bilat Carpal tunnel 2010 Surgical History Left Hip replacement - Dr. Andersen 2015 Surgical History Right thumb Surgical History XLIF-Doctor Harkins 08/2020 Hospitalization History see above [facility] Other evaluation + Plan note Future Appointments Appointment Date:02/14/2023 09:30:00 AM Scheduled Provider: [facility]FM Medicare Wellness [facility] Future Appointments Appointment Date:03/01/2023 09:00:00 AM Scheduled Provider:German WESTFALL MD Location:[facility] Appointment Type:URO New Patient Appointment Date:02/19/2024 08:00:00 AM Scheduled Provider: [facility] Appointment Type:FM Medicare Wellness [facility] Future Appointments Appointment Date:03/02/2023 08:30:00 AM Scheduled Provider: Location[facility] Appointment Type:Urology CALL PAT FT Appointment Date:03/07/2023 08:00:00 AM Scheduled Provider: Location:[facility] Appointment Type:Urology FT Appointment Date:03/27/2023 09:15:00 AM Scheduled Provider:German WESTFALL MD [facility] Type:[facility]O Office Visit Appointment Date:02/19/2024 08:00:00 AM Scheduled Provider: [facility] Type:FM Medicare Wellness Subsequent Future Scheduled Tests Laboratory* PSA Total 03/01/23 [facility] Evaluation + Plan note Future Appointments Appointment Date:03/27/2023 09:15:00 AM Scheduled Provider:German WESTFALL MD [facility] Type:URO Office Visit Appointment Date:02/19/2024 08:00:00 AM Scheduled Provider: [facility] Type: Medicare Wellness Subsequent Diagnostic Tests Pending * Prostate Histology ([facility]) 03/07/23 Future Scheduled Tests Laboratory* PSA Total 03/01/23 [facility] Future Appointments Appointment Date:09/12/2023 09:00:00 AM Scheduled Provider: [facility] Nurse Visit Appointment Date:09/15/2023 08:45:00 AM Scheduled Provider:German WESTFALL MD [facility] Type:URO Office Visit Appointment Date:02/19/2024 08:00:00 AM Scheduled Provider: [facility] Type: Medicare Wellness Subsequent Future Scheduled Tests Laboratory* PSA Total 03/01/23 [facility] evaluation + Plan note Future Appointments Appointment Date:08/28/2023 08:45:00 AM Scheduled Provider:German WESTFALL MD [facility] Type:URO Office Visit Appointment Date:09/15/2023 08:45:00 AM Scheduled Provider:German WESTFALL MD [facility] Type:URO Office Visit Appointment Date:02/19/2024 08:00:00 AM Scheduled [facility] Type: Medicare Wellness Subsequent Future Scheduled Tests Laboratory* PSA Total 03/01/23 [facility] Evaluation + Plan note Future Appointments Appointment Date:09/15/2023 08:45:00 AM Scheduled Provider:German WESTFALL [facility] Type:URO Office Visit Appointment Date:02/19/2024 08:00:00 AM Scheduled [facility] Type:FM Medicare Wellness Subsequent Future Scheduled Tests Laboratory* PSA Total 03/01/23 [facility] evaluation + Plan note Future Appointments Appointment Date:12/11/2023 08:45:00 AM Scheduled Provider:German WESTFALL MD Location:[facility] Appointment Type:URO Office Visit Appointment Date:02/19/2024 08:00:00 AM Scheduled Provider: Location:[facility] Appointment Type: Medicare Wellness Subsequent Diagnostic Tests Pending * PSA Total 11/02/23 Future Scheduled Tests Laboratory* PSA Total 03/01/23 [facility] evaluation noteNo assessment information available [facility] Work Phone: Evaluation note* Diagnosis Malignant neoplasm of prostate (HCC)- Primary Malignant neoplasm of prostate [facility] Malignant [facility]oplasm of prostate (HCC)- Primary Malignant neoplasm of prostate [facility] Diagnosis Malignant neoplasm of prostate (HCC)- Primary Malignant neoplasm of prostate [facility] Diagnosis Malignant neoplasm of prostate (HCC)- Primary Malignant neoplasm of prostate [facility] Diagnosis Malignant neoplasm of prostate (HCC)- Primary Malignant neoplasm of prostate Platelets decreased (HCC) Thrombocytopenia, unspecified [facility] Diagnosis Malignant neoplasm of prostate (HCC)- Primary Malignant neoplasm of prostate [facility] Diagnosis Malignant neoplasm of prostate (HCC)- Primary Malignant neoplasm of prostate [facility] Diagnosis Malignant neoplasm of prostate (HCC)- Primary Malignant neoplasm of prostate [facility] Diagnosis Malignant neoplasm of prostate (HCC)- Primary Malignant neoplasm of prostate [facility] Narrative No data available for this section [facility] No data available for this section [facility] No data available for this section [facility] Summary Purpose Family History No Family History Records Found Relationship Condition Age at Onset Recorded Date/T laure Not Specified Hypertension Unknown History of coronary artery bypass surgery Unknown father History of coronary artery bypass surgery Unknown Malignant neoplasm of colon Unknown Advance Directives No Advanced Directives Records Found Advance Directive Response Recorded Date/ Time Advance Directives No August 18, 2017 8:38am Chief Complaint and Reason for Visit Chief Complaint m43.16 Additional Source Comments REASON FOR VISIT (unrecogniz ed section and content) Reason Comments Prostate Cancer Reason Comments Orders Reason Comments Radiotherapy On-treatment Visit Reason Comments Phlebotomy Specialty Diagnoses / Procedures Referred By Contac t Referred To Contact Radiation Oncology / RADIATION ONCOLOGY Diagnoses Malignant neoplasm of prostate Volume study Procedures VOLUME STUDY brachy therapy Jennifer Ruiz MD [address] [place] [address] [place] [address] Jennifer Ruiz MD [address] [place] [address] [place] [address] Referral ID Status Reason Start Date Expiration Date V isits Requested Visits Authorized [id number] Authorized 07/27/2023 10/25/2023 4 4 (unrecognized sect ion and content) No Status Records FoundNo Status Records FoundNo Status Records FoundNo Status Records FoundNo Status Records FoundNo Status Records FoundNo Status Records Found INFORMATION SOURCE (unrecogn ized section and content) DATE CREATED AUTHOR 04/11/2022 [facility] DATE CREATED AUTHOR AUTHOR'S ORGANIZ ATION 08/24/2022 [facility] DATE CREATED AUTHOR AUTHOR'S ORGANIZ ATION 12/24/2022 [facility] DATE CREATED AUTHOR AUTHOR'S ORGANIZ ATION 09/16/2023 [facility] DATE CREATED AUTHOR AUTHOR'S ORGANIZ ATION 09/16/2023 [facility] DATE CREATED AUTHOR AUTHOR'S ORGANIZ ATION 10/06/[address] [facility] DATE CREATED AUTHOR AUTHOR'S ORGANIZ ATION 10/28/2023 [facility] Care Teams (unrecognized sec tion and content) Team Status: Inactive Member Role Status Dates Uday Wilson MD Primary Care Provider Active Kilo Harkins MD Attending Provider Active Team Status: Active Member Role Status Dates Uday Wilson MD Primary Care Provider Active Goals (unrecognized section and content) Goals may be documented in a n alternate section Source Comments (unrecognize d section and content) In the event this informatio n is protected by the Federal Confidentiality of Alcohol and Drug Abuse Patient Records regulations: The Federal rules restrict any use of the information to criminally investigate or prosecute any alcohol or drug abuse patient.[facility] the event this information is protected by the Federal Confidentiality of Alcohol and Drug Abuse Patient Records regulations: The Federal rules restrict any use of the information to criminally investigate or prosecute any alcohol or drug abuse patient.[facility] [place] the event this information is protected by the Federal Confidentiality of Alcohol and Drug Abuse Patient Records regulations: The Federal rules restrict any use of the information to criminally investigate or prosecute any alcohol or drug abuse patient.[facility] [place] the event this information is protected by the Federal Confidentiality of Alcohol and Drug Abuse Patient Records regulations: The Federal rules restrict any use of the information to criminally investigate or prosecute any alcohol or drug abuse patient.[facility] [place] the event this information is protected by the Federal Confidentiality of Alcohol and Drug Abuse Patient Records regulations: The Federal rules restrict any use of the information to criminally investigate or prosecute any alcohol or drug abuse patient.[facility] [place] the event this information is protected by the Federal Confidentiality of Alcohol and Drug Abuse Patient Records regulations: The Federal rules restrict any use of the information to criminally investigate or prosecute any alcohol or drug abuse patient.[facility] [place] the event this information is protected by the Federal Confidentiality of Alcohol and Drug Abuse Patient Records regulations: The Federal rules restrict any use of the information to criminally investigate or prosecute any alcohol or drug abuse patient.[facility] [place] the event this information is protected by the Federal Confidentiality of Alcohol and Drug Abuse Patient Records regulations: The Federal rules restrict any use of the information to criminally investigate or prosecute any alcohol or drug abuse patient.[facility] [place]In the event this information is protected by the Federal Confidentiality of Alcohol and Drug Abuse Patient Records regulations: The Federal rules restrict any use of the information to criminally investigate or prosecute any alcohol or drug abuse patient.[facility] [place] the event this information is protected by the Federal Confidentiality of Alcohol and Drug Abuse Patient Records regulations: The Federal rules restrict any use of the information to criminally investigate or prosecute any alcohol or drug abuse patient.[facility] [place] the event this information is protected by the Federal Confidentiality of Alcohol and Drug Abuse Patient Records regulations: The Federal rules restrict any use of the information to criminally investigate or prosecute any alcohol or drug abuse patient.[facility] [place] the event this information is protected by the Federal Confidentiality of Alcohol and Drug Abuse Patient Records regulations: The Federal rules restrict any use of the information to criminally investigate or prosecute any alcohol or drug abuse patient.[facility] OhioIn the event this information is protected by the Federal Confidentiality of Alcohol and Drug Abuse Patient Records regulations: The Federal rules restrict any use of the information to criminally investigate or prosecute any alcohol or drug abuse patient.[facility] FOR RECORDS PERTAINING TO PATIENTS WHO ARE OR HAVE BEEN ENROLLED IN A CHEMICAL DEPENDENCY/SUBSTANCEABUSE PROGRAM, SOME INFORMATION MAY BE OMITTED. This clinical summary was aggregated from multiple sources. Caution should be exercised in using it in the provision of clinical care. This summary normalizes information from multiple sources, and as a consequence, information in this document may materially change the coding, format and clinical context of patient data. In addition, data may be omitted in some cases. CLINICAL DECISIONS SHOULD BE BASED ON THE PRIMARY CLINICAL RECORDS. [facility] [employer] [facility]. provides no warranty or guarantee of the accuracy or completeness of information in this document.
[2023-11-06 09:09] LABS: Erythrocyte Sedimentation Rate 27 mm/hr (<=20)
[2023-11-06 09:11] LABS: C Reactive Protein 0.63 mg/dL (<=0.50)
== END 2023-11-06 08:19 | disposition home or self-care (01) ==
LOC: LAB 08:20
PROVIDERS: PCP Family Medicine
DX: M86.652 Other chronic osteomyelitis, left thigh (principal)
CPT/HCPCS: 36415; 85652; 86140

== ENCOUNTER 2023-11-21 16:30 | Emergency (ER) | payer MEDICARE, SELFPAY ==
--- OUTSIDE RECORDS SUMMARY | 2023-11-21 16:39 | XMS_ITS | CCD ---
Author Name Unknown Address [address] [place] [address] Organization [facility] Care Team Providers Care Spa Manager/Esthetician Name Role Phone Kilo Harkins Unavailable MD Uday Wilson Primary Care Provider MD Kilo Harkins Attending Provider [phone] Kilo Harkins Attending Unavailable Kilo Harkins Admitting [...] Unavailable WILSON, UDAY Stoll Primary Care Physician Marla Whitfield Primary Care Physician Unavailable Primary [...] Unavailable ENGELER, G KANU Referring Unavailable Roseann, FIELD COLLECTOR Marla L Attending Unavailable WESTFALL, German Colmenares Attending Unavailable WESTFALL, German Colmenares Attending Unavailable Roseann, FIELD COLLECTOR Marla L Admitting Unavailable Roseann, FIELD COLLECTOR Marla L Attending Unavailable WESTFALL, German Colmenares Attending Unavailable Miguelito Peres Attending Unavailable WILSONUDAY BROWNLEE Attending Unavailable Miguelito Peres Attending Unavailable WILSONUDAY BROWNLEE Referring Unavailable WESTFALL, German Colmenares Attending Unavailable [...] Unavailable WESTFALL, German R Attending Unavailable Roseann, FIELD COLLECTOR Marla L Attending Unavailable Roseann, FIELD COLLECTOR Marla L Admitting Unavailable UDAY WILSON Attending Unavailable CAIT CLAYTON Attending Unavailable SHENDGE, ANDREWHAL Referring Unavailable SHENDGE, VITHAL Referring Unavailable SHENDGE, VITHAL Referring Unavailable SELF, REFERRED Referring Unavailable SHENMTE, VITHAL Attending Unavailable MELLY MATA Attending Unavailable SHENMTE, JUAN RAMON Attending Unavailable MELLY MATA Attending Unavailable Allergies Allergy Classification Reported Allergen(s) Allergy Type Date of Onset Reaction(s) Facility (12 sources) celecoxib; Translations: [celecoxib] Drug Allergy 08-26-20 Unknown (qualifier value) [facility] (1 source) Codeine Drug Allergy Unknown [facility] Other (20 sources) Codeine; Translations: [Codeine] Drug Allergy 08-26-20 Unknown (qualifier value), Mental Status Change [facility] (1 source) sodium pentathol Allergy to substance 08-26-20 Swelling of Lip/Tongue/Throat [facility] (11 sources) Ketoprofen; Translations: [ketoprofen] Drug Allergy 04-14-20 Unknown (qualifier value) [facility] (20 sources) oxyCODONE; Translations: [oxycodone] Drug Allergy 05-23-20 Lightheadedness (finding), Other: See Comments [facility] (1 source) celecoxib; Translations: [CeleBREX] Drug Allergy [facility]ository (1 source) Acetaminophen / oxyCODONE; Translations: [OXYCODONE-ACETA MINOPHEN] Drug Allergy 05-23-20 [facility] Repository Medications Current Medications Medication Drug Class(es) [...] day(s), # 30 tab(s), Refills(s) 11, Pharmacy: [facility], 178, cm, 03/27/23 9:48:00 EDT, Height/Length [...] day(s), # 14 tab(s), Refills(s) 0, Pharmacy: [facility], 178, cm, 03/01/23 9:33:00 EDT, Height/Length [...] IBS, # 120 tab(s), Refills(s) 3, Pharmacy: [facility] [address] Start Date: 01/17/23 Status: Ordered Comment on above: Take 20 mg by mouth. fluticasone propionate 0.05 mg/actuat metered dose nasal spray (20 sources) Corticosteroid Start: take 2 spray(s) nasal route once daily Flonase 0.05 mg/inh Steens 2 spray(s), Nasal, Daily, 16 gram, Refill(s) 0, each nostril, [facility] [address], 180.5, cm, 03/15/23 10:05:00 EDT, Height/Length Dosing, [...] food, # 60 tab(s), Refills(s) 11, Pharmacy: [facility] [address] Start Date: 01/17/23 Status: Ordered Comment on [...] Daily, # 30 tab(s), Refills(s) 11, Pharmacy: [facility], 178, cm, 03/27/23 9:48:00 EDT, Height/Length [...] Daily, # 30 tab(s), Refills(s) 11, Pharmacy: [facility], 178, cm, 08/28/23 9:00:00 EST, Height/Length Dosing, 100, kg, 08/28/23 9:00:00 EST, Weight Dosing Start Date: 08/28/23 Status: Ordered Start: 08-03-2023 take 1 tablet by peter th once daily Vesicare 5 mg Tab 5 mg = 1 tab(s), Oral, Daily, # 30 tab(s), Refills(s) 11, Pharmacy: [facility], 178, cm, 03/27/23 9:48:00 EDT, Height/Length [...] Translations: [Thrombocytopenia, unspecified] Onset: 3 05-08-2023 Chronic Complication of device; implant or graft (20 sources) Infection and inflammatory reaction due to unspecified internal joint prosthesis, subsequent encounter; Translations: [Mechanical loosening of other internal prosthetic joint, initial encounter] Onset: 2 Episodic Comment on above: left hip Esophageal disorders (9 sources) Gastroesophageal reflux disease [...] Translations: [HEMORRHAGIC CONDITION UNSPECIFIED] Onset: 02-07-2022 Episodic Deficiency and other anemia (5 sources) Anemia, unspecified; Translations: [ANEMIA UNSPECIFIED] Onset: 02-08-2022 Episodic Other acquired deformities (1 source) Spondylolisthesis; Translations: [Spondylolisthesis, lumbar region] Episodic Other liver diseases (1 source) Elevated liver enzymes level; Translations: [Abnormal levels of other serum enzymes] Episodic Results Test Name Value Interpretation Reference Range Facility Follow-Upon 11-09-2023 Follow-Up [id number] Daniel Aguilar 1945 M Date Provider Department Center 11/09/2023 MELLY GASPAR [facility] Louie Heal Family History Family history unknown: Yes Level of Service:30065 IN OFFICE/OUTPATIENT ESTABLISHED SF MDM 10 MIN Reason for Visit and Comments: 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 [Other] [facility] Follow-Upon 10-23-2023 Follow-Up [id number] Daniel Aguilar 1945 M Date Provider Department Center 10/23/2023 JUAN RAMON [facility]OM[facility] MPORTHO Family History Family history unknown: Yes Level of Service:55836 IN OFFICE/OUTPATIENT ESTABLISHED LOW MDM 20 MIN Reason for Visit and Comments: Pain [136] New Patient [632] [facility] Ambulatory Visit Summaryon 1 Ambulatory Visit Summary JHONATHAN AGUILAR :1945 Visit Date:09/15/2023 Ambulatory Visit Instructions Your Diagnosis Prostate cancer Nocturia Tests Performed Urnls Dip Stick Auto w/o Microscopy POC 03249 Your Care Team Attending Physician - MALOU MCGREGOR, German Colmenares Primary Care Physician - Marla Fortune This Is Your Medications List bicalutamide (bicalutamide 50 mg Tab) Contact prescribing physician if questions or concerns Misc Prescription (Handicap Placard) acetaminophen (Tylenol) amoxicillin-clavulanate (amoxicillin-clavulanate 500 mg-125 mg Tab) bifidobacterium-lactobacil jb (Probiotic + Colostrum) dicyclomine (dicyclomine 20 mg Tab) fluticasone nasal (Flonase 0.05 mg/inh Steens) meloxicam (meloxicam 7.5 mg Tab) [Image Removed: [...] German WESTFALL MD Where: [facility] [place] [address]- \.br\ You Need to Schedule the Following Appointments\. br\ Follow Up with MALOU MCGREGOR, German Colmenares, URL When: \.br\ Where:\.br\ [facility]\.br\ [place] [address]-\.br\ Medications\.b r\ What How Much When Why [...] Unchanged fluticasone nasal (Flonase 0.05 mg/ inh Steens) 2 Sprays Nasal Inhalation Every day Fluid [...] Urnls Dip Stick Auto w/o Microscopy POC 08086 (09/15/2023)\. br\ Bilirubin Urine Dipstick - Negative\.br\ Blood Urine Dipstick - Trace-intact\. br\ Glucose Urine Dipstick - Negative\.br\ Ketones Urine Dipstick - Negative\.br\ Leukocytes Urine Dipstick - Negative\.br\ Nitrite Urine Dipstick - Negative\.br\ Protein Urine Dipstick - Negative\.br\ Specific [place] Urine Dipstick - 1.020\.br\ Urine Appearance Urine [...] that the cancer will spread.\.br\ ? \.br\ Ev 6 or lower: This indicates that the cancer cells look similar to normal prostate cells (well differentiated ).\.br\ ? \.br\ Ev 7: This indicates that the cancer cells look somewhat similar to normal prostate cells (moderately differentiated ).\.br\ ? \.br\ Allen 8, 9, or 10: This indicates that the cancer cells look very different than normal prostate cells [facility] Consultation Noteon 09-15-20 Consultation Note [id number]#1.00TIFF Normal [facility] Patient Educationon 09-15-20 Patient Education Oncology [...] to normal prostate cells (well differentiated). ? Allen 7: This indicates that the cancer cells look somewhat similar to normal prostate cells (moderately differentiated). ? Ev 8, 9, or 10: This indicates [...] external be (more content not included)... Normal [facility] Urology Office/Clinic Noteon 09-15-2023 Urology Office/Clinic [...] hard prostate L >>R. TRUS/bx 03/07/23 - Ev 8 (4+4) x 4 cores, highest % of core involvement 85%. Allen 7 (4+3) x 5 cores, highest % [...] Contact Information MALOU MCGREGOR, German Colmenares, URL [address] [place] [address]- Additional Instructions: 3 months w/ PSA Patient Education Prostate Cancer IJuany, personally scribed for Dr. Westfall on 09/15/2023 09:38:06. . Documentation recorded by the scribeJuany, accurately reflects the services(s) I performed and [...] Transrectal needle (more content not included)... Normal [facility] Comment on above: Result Comment: Elec tronically Signed By: German WESTFALL MD\.br\Date and Time Signed: 09/15/23 09:40 EST\.br\Electronically Co-Signed By: Juany Mckeon\Date and Time Co-Signed: 09/15/23 09:38 EST Otilio 09-07-2023 CNOV Office Visit (RADTSA ) -- JHONATHAN AGUILAR ([id number]) 1945 M Date Time Provider Department 09/07/23 [...] 05/08/2023 Visit Notes: >> Dara Russell LPN [facility] Sep 07, 2023 10:22 AM Status: Signed AUA= 14 Disposition: Return in about 6 months (around 03/08/2024). Follow-up and Disposition History for Encounter Date Provider Department Center 09/07/2023 [id number] Encounter Status:Closed by Jennifer RUIZ on 09/14/23 Normal [facility] Lab Reportson 08-29-2023 Lab Reports [id number]#1.00TIFF Normal [facility] Ambulatory Visit Summaryon 1 10-29-2022 Ambulatory Visit Summary JHONATHAN AGUILAR :1945 Visit Date:08/28/2023 Ambulatory Visit Instructions Your Diagnosis Prostate cancer Nocturia Family history of prostate cancer in father Your Care Team Attending Physician - MALOU MCGREGOR, eGrman Colmenares Primary Care Physician - Marla Fortune This Is Your Medications List bicalutamide (bicalutamide 50 mg Tab) solifenacin (Vesicare 10 mg Tab) Contact prescribing physician if questions or concerns Misc Prescription (Handicap Placard) acetaminophen (Tylenol) amoxicillin-clavulanate (amoxicillin-clavulanate 500 mg-125 mg Tab) bifidobacterium-lactobacil jb (Probiotic + Colostrum) dicyclomine (dicyclomine 20 mg Tab) fluticasone nasal (Flonase 0.05 mg/inh Steens) meloxicam (meloxicam 7.5 mg Tab) Procedures Performed Brachytherapy (07/27/2023), Transrectal needle biopsy of prostate (03/07/2023), Biopsy (02/16/2023), Cataract, Cyst, Hip arthroplasty, Surgery. Discharge Vitals Heart Rate (Peripheral) 74 Respiratory Rate 16 Blood Pressure 135/79 Height 178 cm Height 70 in Weight 100 kg Weight 220 lb BMI 31.56 What to do next Scheduled Follow-Up Appointments Monday 8:45 AM EST With: German WESTFALL MD Where: [facility] [place] [address]- \.br\ You Need to Schedule the Following Appointments\. br\ Follow Up with German WESTFALL MD, URL When: In 2 weeks\.br\ Comments:\.br\ appt made for 09/15/23 w/PSA and Lupron\.br\ Where:\.br\ [facility] [address]\.br\ [place] [address]-\.br\ Medications\.b r\ What How Much When Why Instructions\. br\ Changed solifenacin (Vesicare 10 mg Tab) 1 Tablets By Mouth Every day Pickup at [facility]\.br\ Unchanged bicalutamide (bicalutamide 50 mg [...] Unchanged fluticasone nasal (Flonase 0.05 mg/ inh Steens) 2 Sprays Nasal Inhalation Every day Fluid [...] Information\.b r\ [facility]: [address] [place], [place] [id number] [phone]\.br\ Allergies\.br\ CeleBREX (Unknown)\.br\ Orudis (Unknown)\.br\ codeine (Unknown)\.br\ [...] including vitamins, herbs, eye drops, creams, and embr-yna-ozywb er medicines.\.br \ ? \.br\ Any problems [...] you to take them.\.br\ ? \.br\ Taking gzjm-hhs-mgobt er medicines, vitamins, herbs, and supplements.\. br\ [...] \.br\ Taking antibiotic medicine before and after [facility] Patient Educationon 08-28-20 Patient Education Oncology [...] including vitamins, herbs, eye drops, creams, and rxbt-qea-fmsybkp medicines. ? Any problems you or family [...] tells you to take them. ? Taking meae-eje-yalamzm medicines, vitamins, herbs, and supplements. ? Follow [...] (general anest (more content not included)... Normal [facility] Urology Office/Clinic Noteon 08-28-2023 Urology Office/Clinic [...] hard prostate L >>R. TRUS/bx 03/07/23 - Allen 8 (4+4) x 4 cores, highest % [...] With When Contact Information German WESTFALL MD, BHARAT In 2 weeks [facility] [address], [place] [address]- Additional Instructions: appt made for 09/15/23 w/PSA [...] primary osteoarthritis (more content not included)... Normal [facility] Comment on above: Result Comment: Elec tronically Signed By: German WESTFALL MD\.br\Date and Time Signed: 08/28/23 10:00 EST\.br\Electronically Co-Signed By: Margy Shields\.br\Date and Time Co-Signed: 08/28/23 09:58 EST PSA SerPl-ncon 08-24-2023 Prostate specific Ag [Mass/Vol] 0.05 ng/mL Normal <2.60 [facility] Comment on above: Order Comment: Speci men Type: BLOOD SPECIMEN Ordering Facility: [facility] Address: [address] [place] [address] Result Comment: Tota l PSA test methodology used is the Electrochemiluminescence Immunoassay by [employer]. Total PSA values by differing methodologies cannot be interchanged. Performed By: #### 2 857-1 #### [facility] CLIA [id number] [facility][NOTE 3] [id number] [place] Insurance Correspondenceon 1 10-22-2022 Insurance Correspondence [id number]#1.00TIFF [facility] Consultation Noteon 08-14-20 Consultation Note [id number]#1.00TIFF [facility] CNOVon 08-09-2023 CNOV Office Visit (RADTSA ) -- JHONATHAN AGULIAR ([id number]) 1945 M Date Time Provider Department 08/09/23 9:45 AM Jennifer RUIZ During your visit today, we recorded the following information about you: Temperature Pulse Respiration Blood pressure 97 degrees 58/minute 16/minute 147/73 Weight 96.6 kg Dara Russell LPN 08/09/2023 10:13 AM Signed AUA= 21 Jennifer Ruiz MD 08/09/2023 10:13 AM Signed Radiation Oncology - Follow Up Note PATIENT NAME: Jhonathan Aguilar PATIENT DIAGNOSIS: Prostate adenocarcinoma, initial PSA 26.2, biopsy Allen score 4 + 4 = 8 (grade [...] (HCC) [C61] Order(s):PSA/PROSTSPECAG DIAG [SQPSA] Order #: [id number] FUTURE Prescriptions as of 08/09/2023 - solifenacin [...] Of Date 08/09/2023 Noted Resolved Platelets decreased ([facility]) [D69.6] 05/08/2023 Visit Notes: >> Dara Russell LPN Wed Aug 09, 2023 9:45 AM Status: Signed AUA= 21 Disposition: Return in about 4 weeks (around 09/06/2023). Follow-up and Disposition History for Encounter Date Pr (more content not included)... Normal [facility] RAD - MISCon 07-31-2023 RAD - MISC [id number]#1.00TIFF Normal [facility] RAD - MISC [id number]#1.00TIFF Normal [facility] CNOVon 07-27-2023 CNOV Office Visit (RADTSA ) -- JHONATHAN AGUILAR ([id number]) 1945 M Date Time Provider Department 07/27/23 8:00 AM Jennifer RUIZ During your visit today, we recorded the following information about you: Jennifer Ruiz MD 07/27/2023 12:43 PM Signed Date: 07/27/23 Facility: [facility] Procedure: prostate transperineal brachytherapy implant Sources: Pd-103 [...] [facility] After anesthesia administered patient placed in dorsal-lithotomy [...] activity seen, results documented. La Ruiz MD [facility] Referring Provider: Jennifer RUIZ [[id number]] Allergies As of Date: 07/27/2023 Noted Allergy Reaction CODEINE 04/05/2023 1 - Mental Status Change OXYCODONE 04/05/2023 14 - Other: See Comments Comments: Dizziness, syncope Date Reviewed: 05/29/2023 Reviewed by: Rosa Lau RN - Fully Assessed Primary Visit Diagnosis:Malignant neoplasm [...] Of Date 07/27/2023 Noted Resolved Platelets decreased (HCC) [D69.6] 05/08/2023 Encounter Status:Closed by Jennifer RUIZ on 07/27/23 Normal [facility] Operative Reporton 3 Operative Report [id number]#1.00TIFF Normal [facility] ECG 12-Leadon 07-18-2023 ECG 12-Lead [id number]#1.00TIFF Normal [facility] Lab Reportson 07-14-2023 Lab Reports [id number]#1.00TIFF Normal [facility] Lab Reports [id number]#1.00TIFF Normal [facility] RAD - MISCon 07-14-2023 RAD - MISC [id number]#1.00TIFF Normal [facility] Insurance Correspondenceon 1 Insurance Correspondence [id number]#1.00TIFF Normal [facility] CNOVon 07-05-2023 CNOV Office Visit (RADTSA ) -- JHONATHAN AGUILAR ([id number]) 1945 M Date Time Provider Department 07/05/23 [...] Jennifer Ruiz MD Referring Provider: Jennifer RUIZ [[id number]] Allergies As of Date: 07/05/2023 Noted Allergy Reaction CODEINE 04/05/2023 1 - Mental Status Change OXYCODONE 04/05/2023 14 - Other: See Comments Comments: Dizziness, syncope Date Reviewed: 05/29/2023 Reviewed by: Rosa Lau RN - Fully [...] Status:Closed by Jennifer RUIZ on 07/06/23 Normal [facility] Consent for Procedure/Surger yon 06-21-2023 Consent for Procedure/Surgery [id number]#[id number]:127 [facility] Consultation Noteon 06-14-20 Consultation Note [id number]#1.00CD:127 [facility] CNOVon 05-29-2023 CNOV Office Visit (RADTSA ) -- JHONATHAN AGUILAR ([id number]) 1945 M Date Time Provider Department 05/29/23 8:45 AM Jennifer RUIZ During your visit today, we recorded the following information about you: Temperature Pulse Respiration Blood pressure 96.7 degrees 72/minute 18/minute 144/71 Weight 95.3 kg Jennifer Ruiz MD 05/29/2023 9:10 AM Signed Radiation Oncology [...] syncope Date Reviewed: 05/29/2023 Reviewed by: Rosa Lau RN - Fully Assessed Reason for Visit: Radiotherapy On-treatment Visit [172] Primary Visit Diagnosis:Malignant neoplasm of prostate (HCC) [...] Of Date 05/29/2023 Noted Resolved Platelets decreased ([facility]) [D69.6] 05/08/2023 Encounter Status:Closed by Jennifer RUIZ on 05/29/23 [facility] CNOVon 05-23-2023 CNOV Office Visit (RADTSA ) -- JHONATHAN AGUILAR ([id number]) 1945 M Date Time Provider Department 05/23/23 8:45 AM Jennifer RUIZ During your visit today, we recorded the following information about you: Temperature Pulse Respiration Blood pressure 97.5 degrees 70/minute 16/minute 165/74 Weight 93.9 kg Jennifer Ruiz MD 05/23/2023 8:56 AM Signed Radiation Oncology - On Treatment Review (OTR) Note PATIENT NAME: Jhonathan Aguilar PATIENT DIAGNOSIS: Prostate adenocarcinoma, initial PSA 26.2, biopsy Allen score 4 + 4 = 8 (grade [...] Assessed Reason for Visit: Radiotherapy On-treatment Visit [172] Primary Visit Diagnosis:Malignant neoplasm of prostate (HCC) [...] Encounter Status:Closed by Jennifer RUIZ on 05/23/23 [facility] ENRIQUEOVmaddie 05-16-2023 CNOV Office Visit (RADTSA ) -- JHONATHAN AGUILAR ([id number]) 1945 M Date Time Provider Department 05/16/23 9:00 AM Jennifer RUIZ RADNAY During your visit today, we recorded the following information about you: Temperature Pulse Respiration Weight 97 degrees 59/minute 16/minute 94.8 kg Jennifer Ruiz MD 05/16/2023 8:52 AM Signed Radiation Oncology - On Treatment Review (OTR) Note PATIENT NAME: Jhonathan Aguilar PATIENT DIAGNOSIS: Prostate adenocarcinoma, initial PSA 26.2, biopsy Allen score 4 + 4 = 8 (grade [...] Encounter Status:Closed by Jennifer RUIZ on 05/16/23 [facility] CNOVon 05-08-2023 CNOV Office Visit (RADTSA ) -- JHONATHAN AGUILAR ([id number]) 1945 M Date Time Provider Department 05/08/23 9:00 AM Jennifer RUIZ RADDIONNEA During your visit today, we recorded the following information about you: Temperature Pulse Respiration Blood pressure 97.4 degrees 68/minute 18/minute 172/84 Weight 93.9 kg Jennifer Ruiz MD 05/08/2023 8:53 AM Signed Radiation Oncology - On Treatment Review (OTR) Note PATIENT NAME: Jhonathan Aguilar PATIENT DIAGNOSIS: Prostate adenocarcinoma, initial PSA 26.2, biopsy Allen score 4 + 4 = 8 (grade [...] Dizziness, syncope Date Reviewed: 05/08/2023 Reviewed by: Rosa Lau RN - Fully [...] Status:Closed by Jennifer RUIZ on 05/08/23 Normal [facility] CBC W Auto Differential pane l (Bld)on 05-04-2023 Basophils (Bld) [#/Vol] 0.03 10*3/uL Normal <0.11 [facility] Comment on above: Order Comment: Speci men Type: BLOOD SPECIMEN Ordering Facility: [facility] Address: [address] [place] [address] Performed By: #### 5 7021-8 #### [facility] CLIA [id number] [address] [place] [address] Basophils/100 WBC (Bld) 0.8 % Normal [facility] Comment on above: Order Comment: Speci men Type: BLOOD SPECIMEN Ordering Facility: [facility] Address: [address] [place] [address] Performed By: #### 5 7021-8 #### [facility] CLIA [id number] [address] [place] [address] 77991 Differential cell count method Nom (Bld) Auto Normal [facility] Comment on above: Order Comment: Speci men Type: BLOOD SPECIMEN Ordering Facility: [facility] Address: [address] [place] [address] Performed By: #### 5 7021-8 #### [facility] CLIA [id number] [address] [place] [address] Eosinophils (Bld) [#/Vol] 0.19 10*3/uL Normal <0.46 [facility] Comment on above: Order Comment: Speci men Type: BLOOD SPECIMEN Ordering Facility: [facility] Address: [address] [place] [address] Performed By: #### 5 7021-8 #### [facility] CLIA [id number] [address] [place] [address] Eosinophils/100 WBC (Bld) 4.8 % Normal [facility] Comment on above: Order Comment: Speci men Type: BLOOD SPECIMEN Ordering Facility: [facility] Address: [address] [address] Performed By: #### 5 7021-8 #### [facility] CLIA [id number] [address] [place] [address] Erythrocyte distribution width (RBC) [Ratio] 12.7 % Normal 11.5-15.0 [facility] Comment on above: Order Comment: Speci men Type: BLOOD SPECIMEN Ordering Facility: [facility] Address: [address] [address] Performed By: #### 5 7021-8 #### [facility] CLIA [id number] [address] [place] [address]1547 Hematocrit (Bld) [Volume fraction] 40.3 % Normal 39.0-51.0 [facility] Comment on above: Order Comment: Speci men Type: BLOOD SPECIMEN Ordering Facility: [facility] Address: [address] [address] Performed By: #### 5 7021-8 #### [facility] CLIA [id number] [address] [place] [address] 88978 Hemoglobin (Bld) [Mass/Vol] 14.3 g/dL Normal 13.0-17.0 [facility] Comment on above: Order Comment: Speci men Type: BLOOD SPECIMEN Ordering Facility: [facility] Address: [address] [address] Performed By: #### 5 7021-8 #### [facility] CLIA [id number] [address] [place] [address]34[address] Immature granulocytes (Bld) [#/Vol] 10*3/uL Normal <0.10 [facility] Comment on above: Order Comment: Speci men Type: BLOOD SPECIMEN Ordering Facility: [facility] Address: [address] [address] Performed By: #### 5 7021-8 #### [facility] CLIA [id number] [address] [place] [address] 41764 Immature granulocytes/100 WBC (Bld) 0.5 % Normal [facility] Comment on above: Order Comment: Speci men Type: BLOOD SPECIMEN Ordering Facility: [facility] Address: [address] [address] Performed By: #### 5 7021-8 #### [facility] CLIA [id number] [address] [place] [address] 83310 Lymphocytes (Bld) [#/Vol] 1.08 10*3/uL Normal 1.00-4.00 [facility] Comment on above: Order Comment: Speci men Type: BLOOD SPECIMEN Ordering Facility: [facility] Address: [address] [address] Performed By: #### 5 7021-8 #### [facility] CLIA [id number] [address] [place] [address] 61504 Lymphocytes/100 WBC (Bld) 27.1 % Normal [facility] Comment on above: Order Comment: Speci men Type: BLOOD SPECIMEN Ordering Facility: [facility] Address: [address] [address] Performed By: #### 5 7021-8 #### [facility] CLIA [id number] [address] [place] [address] 11306 MCH (RBC) [Entitic mass] 32.4 pg Normal 26.0-34.0 [facility] Comment on above: Order Comment: Speci men Type: BLOOD SPECIMEN Ordering Facility: [facility] Address: [address] [address] Performed By: #### 5 7021-8 #### [facility] CLIA [id number] [address] [place] [address] 40683 MCHC (RBC) [Mass/Vol] 35.5 g/dL Normal 30.5-36.0 [facility] Comment on above: Order Comment: Speci men Type: BLOOD SPECIMEN Ordering Facility: [facility] Address: [address] [place] [address] Performed By: #### 5 7021-8 #### [facility] CLIA [id number] [address] [place] [address] 56043 MCV (RBC) [Entitic vol] 91.4 fL Normal 80.0-100.0 [facility] Comment on above: Order Comment: Speci men Type: BLOOD SPECIMEN Ordering Facility: [facility] Address: [address] [place] [address] Performed By: #### 5 7021-8 #### [facility] CLIA [id number] [address] [place] [address] 09505 Monocytes (Bld) [#/Vol] 0.40 10*3/uL Normal <0.87 [facility] Comment on above: Order Comment: Speci men Type: BLOOD SPECIMEN Ordering Facility: [facility] Address: [address] [place] [address] Performed By: #### 5 7021-8 #### [facility] CLIA [id number] [address] [place] [address] 66822 Monocytes/100 WBC (Bld) 10.0 % Normal [facility] Comment on above: Order Comment: Speci men Type: BLOOD SPECIMEN Ordering Facility: [facility] Address: [address] [place] [address] Performed By: #### 5 7021-8 #### [facility] CLIA [id number] [address] [place] [address] 20319 Neutrophils (Bld) [#/Vol] 2.27 10*3/uL Normal 1.45-7.50 [facility] Comment on above: Order Comment: Speci men Type: BLOOD SPECIMEN Ordering Facility: [facility] Address: [address] [address] Performed By: #### 5 7021-8 #### [facility] CLIA [id number] [address] [place] [address] 72048 Neutrophils/100 WBC (Bld) 56.8 % Normal [facility] Comment on above: Order Comment: Speci men Type: BLOOD SPECIMEN Ordering Facility: [facility] Address: [address] [address] Performed By: #### 5 7021-8 #### [facility] CLIA [id number] [address] [place] [address] 55019 Nucleated RBC (Bld) [#/Vol] 10*3/uL Normal <0.01 [facility] Comment on above: Order Comment: Speci men Type: BLOOD SPECIMEN Ordering Facility: [facility] Address: [address] [address] Performed By: #### 5 7021-8 #### [facility] CLIA [id number] [address] [place] [address] 01261 Nucleated RBC/100 WBC (Bld) [Ratio] 0.0 /100 WBC Normal [facility] Comment on above: Order Comment: Speci men Type: BLOOD SPECIMEN Ordering Facility: [facility] Address: [address] [address] Performed By: #### 5 7021-8 #### [facility] CLIA [id number] [address] [place] [address] 93147 Platelet mean volume (Bld) [Entitic vol] 10.4 fL Normal 9.0-12.7 [facility] Comment on above: Order Comment: Speci men Type: BLOOD SPECIMEN Ordering Facility: [facility] Address: [address] Performed By: #### 5 7021-8 #### [facility] CLIA [id number] [address] [place] [address] 82395 Platelets (Bld) [#/Vol] 125 10*3/uL Low 150-400 [facility] Comment on above: Order Comment: Speci men Type: BLOOD SPECIMEN Ordering Facility: [facility] Address: [address] [address] Performed By: #### 5 7021-8 #### [facility] CLIA [id number] [address] [place] [address] 13794 RBC (Bld) [#/Vol] 4.41 10*6/uL Normal 4.20-6.00 [facility] Comment on above: Order Comment: Speci men Type: BLOOD SPECIMEN Ordering Facility: [facility] Address: [address] [place] [address] Performed By: #### 5 7021-8 #### [facility] CLIA [id number] [address] [place] [address] 09062 WBC (Bld) [#/Vol] 3.99 10*3/uL Normal 3.70-11.00 [facility] Comment on above: Order Comment: Speci men Type: BLOOD SPECIMEN Ordering Facility: [facility] Address: [address] [place] [address] Performed By: #### 5 7021-8 #### [facility] CLIA [id number] [address] [place] [address] 73461 Basophils (Bld) [#/Vol] 0.03 10*3/uL <0.11 k/uL [facility] Basophils/100 WBC (Bld) 0.8 % [facility] Differential cell count method Nom (Bld) Auto [facility] Eosinophils (Bld) [#/Vol] 0.19 10*3/uL <0.46 k/uL [facility] Eosinophils/100 WBC (Bld) 4.8 % [facility] Erythrocyte distribution width (RBC) [Ratio] 12.7 % 11.5 - 15.0 % [facility] Hematocrit (Bld) [Volume fraction] 40.3 % 39.0 - 51.0 % [facility] Hemoglobin (Bld) [Mass/Vol] 14.3 g/dL 13.0 - 17.0 g/dL [facility] Immature granulocytes (Bld) [#/Vol] <0.10 k/uL [facility] Immature granulocytes/100 WBC (Bld) 0.5 % [facility] Lymphocytes (Bld) [#/Vol] 1.08 10*3/uL 1.00 - 4.00 k/uL [facility] Lymphocytes/100 WBC (Bld) 27.1 % [facility] MCH (RBC) [Entitic mass] 32.4 pg 26.0 - 34.0 pg [facility] MCHC (RBC) [Mass/Vol] 35.5 g/dL 30.5 - 36.0 g/dL [facility] MCV (RBC) [Entitic vol] 91.4 fL 80.0 - 100.0 fL [facility] Monocytes (Bld) [#/Vol] 0.40 10*3/uL <0.87 k/uL [facility] Monocytes/100 WBC (Bld) 10.0 % [facility] Neutrophils (Bld) [#/Vol] 2.27 10*3/uL 1.45 - 7.50 k/uL [facility] Neutrophils/100 WBC (Bld) 56.8 % [facility] Nucleated RBC (Bld) [#/Vol] <0.01 k/uL [facility] Nucleated RBC/100 WBC (Bld) [Ratio] 0.0 /100 WBC [facility] Platelet mean volume (Bld) [Entitic vol] 10.4 fL 9.0 - 12.7 fL [facility] Platelets (Bld) [#/Vol] 125 10*3/uL Low 150 - 400 k/uL [facility] RBC (Bld) [#/Vol] 4.41 10*6/uL 4.20 - 6.0 0 m/uL [facility] WBC (Bld) [#/Vol] 3.99 10*3/uL 3.70 - 11. 00 k/uL [facility] CNOVon 05-04-2023 CNOV Office Visit (RADTSA ) -- JHONATHAN [id number]) 1945 M Date Time Provider Department 05/04/23 8:45 AM LAB/PORT RADT CHELSIE ALETHA During your visit today, we recorded the following information about you: Rosa Lau RN 05/04/2023 8:56 AM Signed Jhonathan Aguilar [...] [C61] Order(s):CBC + DIFF [SQCBCDIF] Order #: [id number]. #:[id number] Prescriptions as of 05/04/2023 - amoxicillin-clavulanic acid [...] (None) Visit Notes: >> Rosa Lau RN [facility] May 04, 2023 8:49 AM Status: Signed [...] Encounter Status:Closed by ROSA LAU on 05/04/23 [facility] CNOVon 05-01-2023 CNOV Office Visit (RADTSA ) -- JHONATHAN AGUILAR ([id number]) 1945 M Date Time Provider Department 05/01/23 [...] Encounter Status:Closed by Jennifer RUIZ on 05/01/23 [facility] Otilio 04-26-2023 CNOV Office Visit (RADTSA ) -- JHONATHAN AGUILAR ([id number]) 1945 M Date Time Provider Department 04/26/23 9:00 AM Jennifer RUIZ During your visit today, we recorded the following information about you: Jennifer Ruiz MD 05/01/2023 9:27 AM Signed Radiation Oncology - On Treatment Review (OTR) Note PATIENT NAME: Jhonathan Aguilar PATIENT DIAGNOSIS: Prostate adenocarcinoma, initial PSA 26.2, biopsy Allen score 4 + 4 = 8 (grade [...] Encounter Status:Closed by Jennifer RUIZ on 05/01/23 [facility] Denise 04-25-2023 [facility] Telephone (RADTSA) -- JHONATHAN AGUILAR ([id number]) 1945 M Date Time Provider Department 04/25/23 Jennifer RUIZ During your visit today, we [...] [C61] Order(s):CBC + DIFF [SQCBCDIF] Order #: [id number] FUTURE Prescriptions as of 04/25/2023 - amoxicillin-clavulanic [...] Encounter Status:Closed by Jennifer RUIZ on 04/25/23 [facility] CNOVon 04-18-2023 CNOV Office Visit (RADTSA ) -- JHONATHAN AGUILAR ([id number]) 1945 M Date Time Provider Department 04/18/23 [...] Assessed Reason for Visit: Simulation Request Form [9760] Primary Visit Diagnosis:Malignant neoplasm of prostate (HCC) [C61] Order(s):RADIATION TREATMENT PER RADIATION ONCOLOGIST PLAN [4827403] Order #: [id number]: 1 CT SIM PLANNING RADIATION ONCOLOGY [3747628] Order #: [id number] PT ED CANCER [[id number]] Order #: [id number]: 1 Prescriptions as of 04/19/2023 - amoxicillin-clavulanic [...] Encounter Status:Closed by Jennifer RUIZ on 04/19/23 Normal [facility] Follow-Upon 04-17-2023 Follow-Up [id number] Daniel Aguilar 1945 [facility] Provider Department Center 04/17/2023 Jay Jay[facility] Louie Heal Family History Family history unknown: Yes Level of Service:89007 IN OFFICE/OUTPATIENT ESTABLISHED [facility] 10-19 MIN Reason for Visit and Comments: 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 [Other] Normal [facility] Consultation Noteon 04-07-20 Consultation Note [id number]#1.00CD:127 Normal [facility] CNOVon 04-05-2023 CNOV Office Visit (RADTSA ) -- JHONATHAN AGUILAR ([id number]) 1945 M Date Time Provider Department 04/05/23 2:00 PM Jennifer RUIZ During your visit today, we recorded the following information about you: Temperature Pulse Respiration Blood pressure 97.5 degrees 78/minute 18/minute 145/89 Weight Height 94.8 kg 1.81 m Jennifer Ruiz MD 04/05/2023 3:51 PM Signed Radiation Oncology [...] ASSESSMENT/PLAN: Prostate adenocarcinoma, 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 Normal [facility] IntraOperative Documentson 0 03-30-2023 IntraOperative Documents [id number]#1.00CD:127 Normal [facility] Lab Reportson 03-28-2023 Lab Reports [id number]#1.00CD:127 Normal [facility] RAD - Pet Scan Reporton 03-18 RAD - Pet Scan Report [id number]#1.00CD:127 Normal [facility] Ambulatory Visit Summaryon 0 03-27-2023 Ambulatory Visit Summary JHONATHAN AGUILAR :1945 Visit Date:03/27/2023 Ambulatory Visit Instructions Your Diagnosis Prostate cancer Family history of prostate cancer in father Your Care Team Attending Physician - German WESTFALL MD Primary Care Physician - Marla Frotune This Is Your Medications List bicalutamide (bicalutamide 50 mg Tab) Contact prescribing physician if questions or concerns Misc Prescription (Handicap Placard) acetaminophen (Tylenol) bifidobacterium-lactobacil jb (Probiotic + Colostrum) dicyclomine (dicyclomine 20 mg Tab) fluticasone nasal (Flonase 0.05 mg/inh Steens) meloxicam (meloxicam 7.5 mg Tab) Procedures Performed Transrectal needle biopsy of prostate (03/07/2023), Biopsy (02/16/2023), Cataract, Cyst, Hip arthroplasty, Surgery. Discharge Vitals Heart Rate (Peripheral) 90 Respiratory Rate 16 Blood Pressure 138/88 Height 178 cm Height 70 in Weight 100 kg Weight 220 lb BMI 31.56 What to do next Scheduled Follow-Up Appointments Monday 8:00 AM EDT Where: [facility] [place] Normal [facility] Patient Educationon 03-27-20 Patient Education Oncology [...] cancer. Where to find more information ? [employer]: www.cancer.org ? [employer] [place]: www.cancer.gov Contact a health care provider if: [...] an emergenc (more content not included)... Normal [facility] Urology Office/Clinic Noteon 03-27-2023 Urology Office/Clinic [...] prostate L >>R [1]. TRUS/bx 03/07/23 - Allen 8 (4+4) x 4 cores, highest % [...] mg qd. -Referral to [facility]. Ruiz at [facility] for EBRT 2. Family history of prostate cancer in father (Z80.42: Family history of malignant neoplasm of prostate) Pt's father had prostate/colon cancer, treated with radiation seeds. [1] [1] Follow-up With When Contact Information MALOU MCGREGOR, German Colmenares, URL [facility] [address], [place] [address]- [phone] Additional Instructions: referral to rad onc Patient Education Hormone Suppression Therapy for Prostate Cancer Brachytherapy for Prostate Cancer Denisha Trujillo, personally scribed for Dr. Westfall on 03/27/2023 10:40:21. . Documentation recorded by the scribe, Denisha Diana, accurately reflects the services(s) I performed and decisions made by me. Authenticated by Dr. Westflal on 03/27/2023 10:43:10. Problem List/Past Medical History [...] QID, PRN, 3 refills Flonase 0.05 mg/inh Steens, 2 spray(s), Nasal, Daily Handicap Placard, See Instructions meloxicam 7.5 mg Tab, 7.5 mg= 1 tab(s), Oral, BID, PRN, 11 refills Probiotic + Colostrum, Oral, Daily Tylenol, Oral Allergies (more content not included)... Normal [facility] Comment on above: Result Comment: Elec tronically Signed By: Ashlie Naik\.br\Date and Time Signed: 03/27/23 11:17 EDT RAD - CT Reporton 03-25-2023 RAD - CT Report [id number]#1.00CD:127 Normal [facility] Ambulatory Visit Summaryon 0 03-15-2023 Ambulatory Visit Summary JHONATHAN AGUILAR Soni :1945 Visit Date:03/15/2023 Ambulatory Visit Instructions Your [...] mg Tab) fluticasone nasal (Flonase 0.05 mg/inh Steens) meloxicam (meloxicam 7.5 mg Tab) Procedures Performed Transrectal needle biopsy of prostate (03/07/2023), Biopsy (02/16/2023), Cataract, Cyst, Hip arthroplasty, Surgery. Discharge Vitals Heart Rate (Peripheral) 78 Respiratory Rate 16 Blood Pressure 132/70 Height 178 cm Height 70 in Weight 100 kg Weight 220 lb BMI 31.56 What to do next Scheduled Follow-Up Appointments Monday 8:00 AM EDT Where: [facility] Ambulatory Visit Summary JHONATHAN AGUILAR :1945 Visit Date:03/15/2023 Ambulatory Visit Instructions Your Diagnosis Prostate cancer Family history of prostate cancer in father Tests Performed CT Abdomen/Pelvis w/ + w/o Contrast -- Results Pending -- NM Bone Scan Whole Body -- Results Pending -- Please visit your patient portal for your results or contact your primary care physician. Your Care Team Attending Physician - German WESTFALL MD Primary Care Physician - Marla Fortune This Is Your Medications List fluticasone nasal (Flonase) Contact prescribing physician if questions or concerns Misc Prescription (Handicap Placard) acetaminophen (Tylenol) amoxicillin-clavulanate (Augmentin 500 mg-125 mg Tab) bifidobacterium-lactobacil jb (Probiotic + Colostrum) dicyclomine (dicyclomine 20 mg Tab) fluticasone nasal (Flonase 0.05 mg/inh Steens) meloxicam (meloxicam 7.5 mg Tab) Procedures Performed Transrectal needle biopsy of prostate (03/07/2023), Biopsy (02/16/2023), Cataract, Cyst, Hip arthroplasty, Surgery. Discharge Vitals Heart Rate (Peripheral) 78 Respiratory Rate 16 Blood Pressure 132/70 Height 178 cm Height 70 in Weight 100 kg Weight 220 lb BMI 31.56 What to do next Scheduled Follow-Up Appointments Monday 8:00 AM EDT Where: [facility] Ambulatory Visit Summary JHONATHAN AGUILAR :1945 Visit Date:03/15/2023 Ambulatory Visit Instructions Your Diagnosis Fluid level behind tympanic membrane of both ears Seasonal allergies BMI 29.0-29.9,adult Non-smoker Your Care Team Attending Physician - Marla Fortune Primary Care Physician - Marla Fortune This Is [facility] Medications [facility] Pres[facility] (Handicap Placard) acetaminophen (Tylenol) amoxicillin-clavulanate (Augmentin 500 mg-125 mg Tab) bifidobacterium-lactobacil jb (Probiotic + Colostrum) dicyclomine (dicyclomine 20 mg Tab) fluticasone nasal (Flonase 0.05 mg/inh Steens) meloxicam (meloxicam 7.5 mg Tab) Procedures Performed Biopsy (02/16/2023), Cataract, Cyst, Hip arthroplasty, Surgery. Discharge Vitals Heart Rate (Peripheral) 72 Respiratory Rate 18 Blood Pressure 146/80 Height 180.5 cm Height 71 in Weight 96.5 kg Weight 212.3 lb BMI 29.62 What to do next Scheduled Follow-Up Appointments Monday 11:15 AM EDT With: MALOU MCGREGOR, German Colmenares Where: [facility] [address] [address]- \.br\ Medications\.b r\ What How Much When Why Instructions\. br\ New fluticasone nasal (Flonase 0.05 mg/ inh Steens) 2 Sprays Nasal Inhalation Every day Fluid level behind tympanic membrane of both ears Seasonal allergies BMI 29.0-29.9,adul t Non-smoker each nostril Pickup at [facility]\.br\ Unchanged acetaminophen (Tylenol) By Mouth\.br\ [...] Information\.b r\ [facility]: [address] [place], [place] [id number] [phone]\.br\ Allergies\.br\ CeleBREX (Unknown)\.br\ Orudis (Unknown)\.br\ codeine (Unknown)\.br\ [...] IBS - Irritable bowel syndrome\.br\ Sciatica\.br\ \.br\ [facility] [place] 03-15-2023 Consent [id number]#1.00CD:127 Normal [facility] Family Medicine Office/Clini c Noteon 03-15-2023 [...] QID, PRN, 3 refills Flonase 0.05 mg/inh Steens, 2 spray(s), Nasal, Daily Handicap Placard, See Instructions meloxicam 7.5 mg Tab, 7.5 mg= 1 tab(s), Oral, BID, PRN, 11 refills Probiotic + Colostrum, Oral, Daily Tylenol, Oral Allergies CeleBREX (Unknown) Orudis (Unknown) codeine (Unknown) oxyCODONE (Lightheaded) Social History Alcohol - Low Risk, 12/02/2022 Other Substance Abuse - Denies Substance Abuse, 12/03/19 (more content not included)... Normal [facility] Comment on above: Result Comment: Elec tronically Signed By: Marla Fortune\.jamshid\Date and Time Signed: 03/15/23 10:38 EDT Patient [...] cancer. Where to find more information ? [employer]: www.cancer.org ? [place] [employer] [place]: www.cancer.gov Contact a health care provider if: [...] an emergenc (more content not included)... Normal [facility] Urology Office/Clinic Noteon 03-15-2023 Urology Office/Clinic [...] prostate L >>R [1]. TRUS/bx 03/07/23 - Allen 8 (4+4) x 4 cores, highest % [...] cons of each therapy today, and this Gabriel prostate cancer book was provided. Explained that [...] hip infection. 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 He wishes for seeds/external radiation vs. surgery. Follow up after below or sooner if needed. Pt understands and agrees with plan. -NM bone scan. -CT AP w/wo con. -Refer to rad onc. -Start Casodex 50 mg qd. SEs discussed. Rx sent to [facility] Tanesha. will give Lupron when prior auth is completed. 2. Family history of prostate cancer in father (Z80.42: Family history of malignant neoplasm of prostate) Pt's father had prostate/colon cancer, treated with radiation seeds. [1] Follow-up With When Contact Information MALOU MCGREGOR, German Colmenares, URL [facility] [address], [place] [address]- Additional Instructions: f/u after NM bone, CT, and referral Patient Education Hormone Suppression Therapy for Prostate Cancer Brachytherapy for Prostate Cancer Prostate Cancer IJennie, personally scribed for Dr. Westfall on 03/15/2023 [...] mg Tab (more content not included)... Normal [facility] Comment on above: Result Comment: Elec tronically Signed By: German WESTFALL MD\.br\Date and Time Signed: 03/15/23 11:47 EDT\.br\Electronically Co-Signed By: Jennie Mirza\.br\Date and Time Co-Signed: 03/15/23 11:42 EDT Prostate Histology ([facility]) on 03-13-2023 Prostate Histology Diagnosis Info Invalid Interpretation Code [facility] Comment on above: Result Comment: A:Pr ostate,Left Lateral Base:Needle Biopsy Interpretation - - Atypical acinar glands suspicious for adenocarcinoma. MicroScopic Description - B:Prostate,Left Lateral Mid:Needle Biopsy Interpretation - - Acinar adenocarcinoma of prostate; Allen score 8(4+4); Tumor measures 0.60 cm in length; 85% of the core involved by tumor; 1 of 1 core involved. MicroScopic Description - C:Prostate,Left Lateral [place]:Needle Biopsy Interpretation - - Acinar adenocarcinoma of prostate; Ev score 8(4+4); Tumor measures 0.15 cm in length; 37% of the core involved by tumor; 1 of 1 core involved. MicroScopic Description - D:Prostate,Left Base:Needle Biopsy Interpretation - - Acinar adenocarcinoma of prostate; Allen score 8(4+4); Tumor measures 0.5 cm in length; 62% of the core involved by tumor; 1 of 1 core involved. MicroScopic Description - E:Prostate,Left Mid:Needle Biopsy Interpretation - - Acinar adenocarcinoma of prostate; Allen score 7(4+3); Tumor measures 1 cm in length; 66% of the core involved by tumor; 1 of 1 core involved. MicroScopic Description - F:Prostate,Left [place]:Needle Biopsy Interpretation - - Atypical small acinar glands. MicroScopic Description - G:Prostate,Right Base:Needle Biopsy Interpretation - - Acinar adenocarcinoma of prostate; Allen score 7(4+3); Tumor measures 0.35 cm in length; 26% of the core involved by tumor; 1 of 1 core involved. MicroScopic Description - H:Prostate,Right Mid:Needle Biopsy Interpretation - - Acinar adenocarcinoma of prostate; Ev score 7(4+3); Tumor measures 0.6 cm in length; 31% of the core involved by tumor; 1 of 1 core involved. MicroScopic Description - I:Prostate,Right [place]:Needle Biopsy Interpretation - - Acinar adenocarcinoma of [...] Interpretation - - Acinar adenocarcinoma of prostate; Allen score 7(4+3); Tumor measures 1.3 cm in length; 65% of the core involved by tumor; 1 of 1 core involved. MicroScopic Description - L:Prostate,Right Lateral [place]:Needle Biopsy Interpretation - - Atypical acinar glands [...] cores 1 units cm Highest grade group: Ev score 4+4=8, grade group 4. Highest percentage of core involvement: 85% Cribriform pattern 4: Identified This Grade Group system was recently endorsed by both the International Society of Urological Pathology (ISUP, 2015) and the World Health Organization (WHO). Electronically signed by : on: 03/13/2023 13:24:39 Performed By: #### 1 [id number] ####[facility] [address] [place] [address] Consent for Procedure/Surger yon 03-07-2023 Consent for Procedure/Surgery [id number]#[id number]:127 [facility] Consent for Treatmenton 02-17 Consent for Treatment [id number]#1.00CD:127 [facility] IntraOperative Documentson 0 03-07-2023 IntraOperative Documents [id number]#1.00CD:127 [facility] Main OR Intraoperative Recor don 03-07-2023 Main OR Intraoperative Record IntraOp Document Type FTURO Summary Primary Physician: German WESTFALL MD Finalized Date/Time: 03/07/23 09:10:52 Pt. Name: JHONATHAN AGUILAR Soni Temple/Sex: 1945 Male Med Rec #: [id number] Physician: German WESTFALL MD Financial #: [id number] Pt. Type: O Room/Bed: / Admit/Disch: 03/07/23 07:43:39 - Institution: Case Times FTURO Entry 1 Patient Times In Room 03/07/23 08:43:00 Out Room 03/07/23 09:07:00 Procedure Times Start 03/07/23 08:50:00 Stop 03/07/23 08:57:00 Anesthesia Times Last Modified By: Melinda Sotelo RN 03/07/23 09:07:30 Case Attendance FTURO Entry 1 Entry 2 Entry 3 Case Attendee German WESTFALL MD PRESSURE TEST OPERATOR, Nova Sotelo RN, Melinda Farmer Role Performed Surgeon - Primary Scrub - Primary Network Operations Project Manager - Primary Time In 03/07/23 08:43:00 03/07/23 08:43:00 03/07/23 08:43:00 Time Out 03/07/23 09:07:00 03/07/23 09:07:00 03/07/23 09:07:00 Procedure PROSTATE TRANSRECTAL PROSTATE TRANSRECTAL PROSTATE TRANSRECTAL ULTRASOUND WITH BIO(.) ULTRASOUND WITH BIO(.) ULTRASOUND WITH BIO(.) Comments Last Modified By: Melinda Sotelo RN, RN, Melinda Lozoya RN 03/07/23 09:07:32 03/07/23 [...] Position Verified Availability Equipment, Medication Time Out German WESTFALL MD, Verified (If Participants Nova Amado CST, Applicable) [...] By: Melinda Sotelo RN 03/07/23 09:10 Normal [facility] Main OR Preoperative Recordo n 03-07-2023 Main OR Preoperative Record Holding Area Document Type FTURO Summary Primary Physician: German WESTFALL MD Finalized Date/Time: 03/07/23 08:44:42 Pt. Name: JHONATHAN AGUILAR./Sex: 1945 Male Med Rec #: [id number] Physician: German WESTFALL MD Financial #: [id number] Pt. Type: O Room/Bed: / Admit/Disch: 03/07/23 [...] Complaints of Pain: No Skin Integrity Intact, [place], Warm, & Dry Vitals - EU Blood Pressure 140/73 Pulse 70 bpm Respirations 20 br/min SPO2 96 % RN Reviewed Yes Last Modified By: Melinda Sotelo RN 03/07/23 08:44:39 General Comments: Temp 36.4 Finalized By: Melinda Sotelo RN Document Signatures Signed By: Dawn Butt LPN 03/07/23 08:00 Melinda Sotelo RN 03/07/23 08:44 Normal [facility] Operative Reporton Operative Report Patient: ESTEFANIA [...] suite, placed in the modified left lateral Esquivle position, The patient was draped appropriately, 80 [...] were sent to pathology for evaluation. Normal [facility] Comment on above: Result Comment: Elec tronically Signed By: MALOU MCRGEGOR, German Valle.jamshid\Date and Time Signed: 03/07/23 09:08 EDT Outpatient Surgery Discharge Instructionon 03-07-2023 Outpatient Surgery Discharge Instruction [id number]:127 Normal [facility] Patient Educationon 03-07-20 Patient Education Custom [...] for your post-operative appointment in 1-2 weeks [phone] or [phone] Normal [facility] Prostate Histology ([facility]) on 03-07-2023 PH Method of Extraction Needle Biopsy Normal [facility] Comment on above: Performed By: #### 1 [id number] ####[facility] [address] [place] [address] PH Number of Jars 2 Invalid Interpretation Code [facility] Comment on above: Performed By: #### 1 [id number] ####[facility] [address] [facility] [place] [facility] [place] [address] PH Specimen 1 L Base Prostate Normal [facility] Comment on above: Performed By: #### 1 [id number] ####[facility] [address] [place] [address] PH Specimen 10 R Lat Bse Prost Normal [facility] Comment on above: Performed By: #### 1 [id number] ####[facility] [address] [facility] [place] [facility] [place] [address] PH Specimen 11 R Lat Mid Prost Normal [facility] Comment on above: Performed By: #### 1 [id number] ####[facility] [address] [place] [address] PH Specimen 12 R Lat Apx Prost Normal [facility] Comment on above: Performed By: #### 1 [id number] ####[facility] [address] [place] [address] PH Specimen 2 L Mid Prostate Normal [facility] Comment on above: Performed By: #### 1 [id number] ####[facility] [address] [place] [address] PH Specimen 3 L Apx Prostate Normal [facility] Comment on above: Performed By: #### 1 [id number] ####[facility] [address] [place] [address] PH Specimen 4 L Lat Bse Prost Normal [facility] Comment on above: Performed By: #### 1 [id number] ####[facility] [address] [place] [address] PH Specimen 5 L Lat Mid Prost Normal [facility] Comment on above: Performed By: #### 1 [id number] ####[facility] [address] [place] [address] PH Specimen 6 L Lat Apx Prost Normal [facility] Comment on above: Performed By: #### 1 [id number] ####[facility] [address] [place] [address] PH Specimen 7 R Base Prostate Normal [facility] Comment on above: Performed By: #### 1 [id number] ####[facility] [address] [place] [address] PH Specimen 8 R Mid Prostate Normal [facility] Comment on above: Performed By: #### 1 [id number] ####[facility] [address] [place] [address] PH Specimen 9 R Apx Prostate Normal [facility] Comment on above: Performed By: #### 1 [id number] ####[facility] [address] [place] [address] PH Type of Service Technical Only Normal [facility] Comment on above: Performed By: #### 1 [id number] ####[facility] [address] [place] [address] Ambulatory Visit Summaryon 0 03-01-2023 Ambulatory Visit Summary REXJHONATHAN COOL Soni :1945 Visit Date:03/01/2023 Ambulatory Visit Instructions Your Diagnosis Elevated PSA Family history of prostate cancer Former smoker Tests Performed Urnls Dip Stick Auto w/o Microscopy POC 70881 Your Care Team Attending Physician - MALOU MCGREGOR, eGrman Colmenares Primary Care Physician - UDAY WILSON MD Referring Physician - UDAY WILSON MD This [...] Appointments Monday 8:00 AM EDT Where: [facility] [place] Invalid Interpretation Code Family history of prostate cancer [facility] Formson 03-01-2023 Forms [id number]#[id number]:127 Normal [facility] Patient Educationon 03-01-20 Patient Education Oncology Cancer Screening for Men [...] if anything looks unusual. Men with a jlamte-onvn-cmpjmp risk for skin cancer may want to see a cat skinner (skin former) for an annual body check. What are the benefits of screening? Cancer screening is done to look for cancer in the very early stages, before it spreads and becomes harder to treat and before you would start to notice symptoms. Finding cancer early improves the chances of successful treatment. It ma (more content not included)... Normal [facility] Pre-Certification Formon Pre-Certification Form [id number]#[id number]:127 Normal [facility] Screenson 03-01-2023 Screens [id number]:127 Normal [facility] Auto Diffon 02-15-2023 Basophils/100 WBC (Bld) 0.5 % Normal 0.0-2.0 [facility] Comment on above: Order Comment: Order Added by Discern Expert. Performed By: #### 2 [id number], [id number] ####[facility] [address] [place] [address] Basophils/Leukocyte s Auto (Bld) [Pure # fraction] 0.0 E9/L Normal 0.0-0.2 [facility] Comment on above: Order Comment: Order Added by Discern Expert. Performed By: #### 2 308841, [id number] ####[address] [address] Eosinophils/100 WBC (Bld) 6.0 % Normal 0.0-8.0 [facility] Comment on above: Order Comment: Order Added by Discern Expert. Performed By: #### 2 243309, 8413601 ####[address] [address] Eosinophils/Leukocy aminata Auto (Bld) [Pure # fraction] 0.3 E9/L Normal 0.0-0.5 [facility] Comment on above: Order Comment: Order Added by Deanna Expert. Performed By: #### 2 064536, 5434117 ####[address] [address] Lymphocytes/100 WBC (Bld) 39.4 % Normal 14.0-50.0 [facility] Comment on above: Order Comment: Order Added by Discern Expert. Performed By: #### 2 076939, 5155489 ####[address] [address] Lymphocytes/Leukocy aminata Auto (Bld) [Pure # fraction] 2.3 E9/L Normal 1.0-4.0 [facility] Comment on above: Order Comment: Order Added by Deanna Expert. Performed By: #### 2 805091, 4160320 ####[address] [address] Monocytes/100 WBC (Bld) 9.0 % Normal 4.0-14.0 [facility] Comment on above: Order Comment: Order Added by Deanna Expert. Performed By: #### 2 657495, 2597325 ####[address] [address] Monocytes/Leukocyte s Auto (Bld) [Pure # fraction] 0.5 E9/L Normal 0.2-1.0 [facility] Comment on above: Order Comment: Order Added by Discern Expert. Performed By: #### 2 296878, 8771393 ####[facility] [address] [place] [address] Neutrophils/100 WBC (Bld) 45.1 % Normal 36.0-75.0 [facility] Comment on above: Order Comment: Order Added by Discern Expert. Performed By: #### 2 988819, 0806351 ####[address] [address] Neutrophils/Leukocy aminata Auto (Bld) [Pure # fraction] 2.6 E9/L Normal 2.0-7.5 [facility] Comment on above: Order Comment: Order Added by Discern Expert. Performed By: #### 2 570059, 3973371 ####[address] [address] CBC w/ Auto Diffon Erythrocyte distribution width (RBC) [Ratio] 13.7 % Normal 10.9-14.2 [facility] Comment on above: Performed By: #### 2 331481, 3231095 ####[address] [address] Hematocrit (Bld) [Volume fraction] 45.9 % Normal 37.7-49.0 [facility] Comment on above: Performed By: #### 2 691243, 7776781 ####[address] [address] Hemoglobin (Bld) [Mass/Vol] 15.6 g/dL Normal 13.5-17.5 [facility] Comment on above: Performed By: #### 2 043308, 4697760 ####[address] [address] MCH (RBC) [Entitic mass] 32.1 pg Normal 27.0-34.0 [facility] Comment on above: Performed By: #### 2 870232, 4535421 ####[address] [address] MCHC (RBC) [Mass/Vol] 34.0 g/dL Normal 31.4-36.0 [facility] Comment on above: Performed By: #### 2 600293, 2440210 ####[place] [address] MCV (RBC) [Entitic vol] 94.4 fL Normal 80.0-100.0 [facility] Comment on above: Performed By: #### 2 903666, 8919626 ####[place] [address] Platelet mean volume (Bld) [Entitic vol] 9.6 fL Normal 6.4-10.8 [facility] Comment on above: Performed By: #### 2 425803, 9430547 ####[place] [address] RBC (Bld) [#/Vol] 4.9 E12/L Normal 4.3-5.9 [facility] Comment on above: Performed By: #### 2 656594, 1054905 ####[place] [address] WBC corrected for nucl RBC Auto (Bld) [#/Vol] 5.7 E9/L Normal 4.0-11.0 [facility] Comment on above: Performed By: #### 2 821410, 5263833 ####[place] [address] Platelets (Bld) [#/Vol] 170.5 E9/L Normal 150.0-500.0 [facility] Comment on above: Result Comment: na c itrate Performed By: #### 2 172483, 6914555 ####[place] [address] HEMATOLOGYOrdered By: SYSTEM SYSTEM on 02-15-2023 Basophils/100 [...] 4.9 E12/L Normal 4.3 - 5.9 E12/L [facility] HemeAutoSS WBC corrected for nucl RBC Auto (Bld) [#/Vol] 5.7 E9/L Normal 4.0 - 11.0 E9/L [facility] HemeAutoSS Patient Correspondenceon Patient Correspondence [id number]:127 Normal [facility] Physician Referralon 023 Physician Referral [id number]:127 Normal [facility] Ambulatory Visit Summaryon 0 02-14-2023 Ambulatory [...] Follow-Up Appointments Monday 8:00 AM EDT Where: [facility] Medicine T[place]ha Normal [facility] Family Medicine Office/Clini c Noteon 02-14-2023 [...] of clutter to prevent tripping and/or falling. [place] Advance Directives reviewed, patient is in the [...] effectiveness. Pat (more content not included)... Normal [facility] Comment on above: Result Comment: Elec tronically Signed By: JENNY MCGREGOR, UDAY Stoll\.jamshid\Date and Time Signed: 02/14/23 11:28 EDT\.br\Electronically Co-Signed By: Juan Jeffers\Date and Time Co-Signed: 02/14/23 11:04 EDT Patient [...] numbers. This can be done either in [place] or metric measurements. Note that charts and online BMI calculators are available to help you find your BMI quickly and easily without having to do these calculations yourself. To calculate your BMI in [place] measurements: 1. Measure your weight in [...] for Disease Control and Prevention: www.cdc.gov ? [place] [employer]: www.heart.org ? National Heart, Lung, and Blood [place]: www.nhlbi.nih.gov Summary ? Body mass index (BMI) is a number that is calculated from a person's weight and height. ? BMI may help estimate how much of a person's weight is composed of fat. BMI can help identify those who may be at higher risk for certain medical problems. ? BMI can be measured using [place] measurements or metric measurements. ? BMI charts are used to identify whether you are underweight, normal weight, overweight, or obese. This information is not intended to replace advice given to you by your health care provider. Make sure you discuss any questions you have with your health care provider. Document Revised: 05/27/2020 Document Reviewed: 04/03/2020 [employer] Patient Education ? 2022 [employer] Caregiving Fall Prevention in the Home, [...] night-lights. ? Place frequently used items in eqhq-yl-tzhcd places. Lower the shelves around your home if necessary. ? Set up furniture so that there are clear paths around it. Avoid moving your furniture around. ? Remove throw rugs and other tripping hazards from the sumaya (more content not included)... Normal [facility] Screenson 02-14-2023 Screens [id number]:127 Normal [facility] CHEMISTRYOrdered By: SYSTEM SYSTEM on 02-10-2023 [...] 19 mg/dL Normal 7 - 40 mg/dL FT Remisol CO2 [Moles/Vol] 27 mmol/L Normal 21 - 31 mmol/L FT Remisol Creatinine [Mass/Vol] 1.1 mg/dL Normal 0.5 - 1.3 mg/dL FT Remisol GFR/1.73 sq M.predicted among non-blacks MDRD (S/P/Bld) [Vol rate/Area] 70 mL/min/1.73 m2 Normal >=59mL/min/1.7 3 m2 [facility] Chem S Globulin (S) [Mass/Vol] 3.1 g/dL Normal 1.4 - 4.0 gm/dL FT Remisol Glucose [Mass/Vol] 100 mg/dL Normal 55 - 199 mg/dL [facility] Remisol Potassium [Moles/Vol] 4.3 mmol/L Normal 3.5 - 5.3 mmol/L FT Remisol Prostate specific Ag [Mass/Vol] 26.2 ng/mL High 0.1 - 3.5 ng/mL FT Remisol Protein [Mass/Vol] 7.2 g/dL Normal 6.0 - 7.8 gm/dL FT Remisol Sodium [Moles/Vol] 138 mmol/L Normal 135 - 145 mmol/L FT [facility]isol Triglyceride [Mass/Vol] 97 mg/dL Normal <=149mg/dL FT [facility]isol Urea nitrogen [Mass/Vol] 20 mg/dL Normal 5 - 21 mg/dL FT Remisol Urea nitrogen/Creatinine [Mass ratio] 18 mg/mg Normal 10 - 20 FT Remisol CMPon 02-10-2023 Albumin [Mass/Vol] 4.1 g/dL Normal 3.3-5.0 [facility] Comment on above: Performed By: #### 1 6938919, 36813100, 1516610, 2110109 #### [facility] [address] [place] [address] Albumin/Globulin (S) [Mass conc ratio] 1.3 Normal 1.1-2.2 [facility] Comment on above: Performed By: #### 1 3648334, 37715997, 1471506, 1367961 #### [facility] [address] [place] [address] ALP [Catalytic activity/Vol] 153 Int._Unit/L High 21-98 [facility] Comment on above: Performed By: #### 1 8886678, 60341835, 0129855, 6123069 #### [facility] [address] [place] [address] ALT No additional P-5'-P [Catalytic activity/Vol] 20 Int._Unit/L Normal 6-46 [facility] Comment on above: Performed By: #### 1 1070358, 91958360, 8462530, 5084427 #### [facility] [address] [place] [address] Anion gap [Moles/Vol] 8 mmol/L Normal 6-16 [facility] Comment on above: Performed By: #### 1 3537592, 20060778, 6805611, 9295632 #### [facility] [address] [place] [address] AST [Catalytic activity/Vol] 28 Int._Unit/L Normal 5-43 [facility] Comment on above: Performed By: #### 1 6353175, 93865508, 0848552, 6058352 #### [facility] [address] [place] [address] Bilirubin [Mass/Vol] 0.6 mg/dL Normal 0.0-1.1 [facility] Comment on above: Performed By: #### 1 4514250, 79199059, 8409749, 9691770 #### [facility] [address] [place] [address] Calcium [Mass/Vol] 9.1 mg/dL Normal 8.9-11.1 [facility] Comment on above: Performed By: #### 1 8069340, 71779199, 0831164, 9512339 #### [facility] [address] [place] [address] Chloride [Moles/Vol] 107 mmol/L Normal 101-111 [facility] Comment on above: Performed By: #### 1 7620158, 43085824, 4375698, 0663484 #### [facility] [address] [place] [address] CO2 [Moles/Vol] 27 mmol/L Normal 21-31 [facility] Comment on above: Performed By: #### 1 2620855, 64761474, 9571364, 7505254 #### [facility] [address] [place] [address] Creatinine [Mass/Vol] 1.1 mg/dL Normal 0.5-1.3 [facility] Comment on above: Performed By: #### 1 6162818, 00606821, 6820895, 7700869 #### [facility] [address] [place] [address] Globulin (S) [Mass/Vol] 3.1 g/dL Normal 1.4-4.0 [facility] Comment on above: Performed By: #### 1 9389596, 59522714, 1700459, 7107742 #### [facility] [address] [place] [address] Glucose [Mass/Vol] 100 mg/dL Normal 55-199 [facility] Comment on above: Result Comment: If t his glucose result represents a fasting glucose, interpretation should refer to the following reference range: 55-99 mg/dL Performed By: #### 1 2122105, 08294967, 8834396, 8062134 #### [facility] [address] [place] [address] Potassium [Moles/Vol] 4.3 mmol/L Normal 3.5-5.3 [facility] Comment on above: Performed By: #### 1 8223912, 52753317, 3000446, 4338290 #### [facility] [address] [place] [address] Protein [Mass/Vol] 7.2 g/dL Normal 6.0-7.8 [facility] Comment on above: Performed By: #### 1 7447342, 74565908, 6460406, 5991967 #### [facility] [address] [place] [address] Sodium [Moles/Vol] 138 mmol/L Normal 135-145 [facility] Comment on above: Performed By: #### 1 1027527, 60642209, 0955109, 1877334 #### [facility] [address] [place] [address] Urea nitrogen [Mass/Vol] 20 mg/dL Normal 5-21 [facility] Comment on above: Performed By: #### 1 7430891, 21346808, 3017175, 4461940 #### [facility] [address] [place] [address] Urea nitrogen/Creatinine [Mass ratio] 18 No Units Normal 10-20 [facility] Comment on above: Performed By: #### 1 7144638, 81136042, 9806268, 9585605 #### [facility] [address] [place] [address] Lipid Panelon 02-10-2023 Cholesterol [Mass/Vol] 165 mg/dL Normal 120-200 [facility] Comment on above: Performed By: #### 1 1344118, 85517331, 5975317, 9392933 ####[facility] [address] [place] [address] Cholesterol in HDL [Mass/Vol] 54 mg/dL Invalid Interpretation Code [facility] Comment on above: Result Comment: HDL > or equal to 60 mg/dL: Low cardiovascular risk HDL < 40 mg/dL : High cardiovascular risk Performed By: #### 1 1526609, 50619223, 0846563, 8734923 ####[facility] [address] [place] [address] Cholesterol in LDL [Mass/Vol] 79 mg/dL Normal <=129 [facility] Comment on above: Performed By: #### 1 4864711, 74400508, 3393822, 2363097 ####[facility] [address] [place] [address] Cholesterol in VLDL [Mass/Vol] 19 mg/dL Normal 7-40 [facility] Comment on above: Performed By: #### 1 4883089, 60219860, 1197578, 6199058 ####[facility] [address] [place] [address] Triglyceride [Mass/Vol] 97 mg/dL Normal <=149 [facility] Comment on above: Performed By: #### 1 4485668, 53410465, 2032495, 5812290 ####[facility] [address] [place] [address] Nurse Consultation Noteon Nurse Consultation Note Reason [...] influenza virus vaccine, inactivated 08/07/2013 Recorded Normal [facility] PSA Screen, Totalon 02-11-20 23 Prostate specific Ag [Mass/Vol] 26.2 ng/mL High 0.1-3.5 [facility] Comment on above: Result Comment: The concentration of PSA determined by different manufacturers can vary due to differences in assay methods and reagent specificity. Values obtained from different assay methods cannot be used interchangeably. The methodology used for this result was chemiluminescence using [employer] Access Hybritech PSA reagent. Performed By: #### 1 2868635, 86297180, 6590239, 0942983 #### [facility] [address] [place] [address] eGFRon 02-10-2023 GFR/1.73 sq M.predicted among non-blacks MDRD (S/P/Bld) [Vol rate/Area] 70 mL/min/1.73 m2 Normal >=59 [facility] Comment on above: Order Comment: Order added by Discern Expert. Result Comment: Enterprise Sales Person pako kidney disease could be indicated at eGFR's of less than 60 mL/min/1.73m2. Kidney failure is indicated at less than 15 mL/min/1.73m2. Performed By: #### 1 4534437, 42127073, 3008974, 3424183 ####[facility] [address] [place] [address] Family Medicine Office/Clini c Noteon 02-08-2023 Family Medicine [...] Score Initial Depression Screen Score: 0 [place] Constitutional: no fever, no chills, no sweats, [...] influenza virus vaccine, inactivated 08/07/2013 Recorded Normal [facility] Comment on above: Result Comment: Elec tronically Signed By: JENNY MCGREGOR, UDAY Stoll\.br\Date and Time Signed: 02/08/23 11:55 EDT 36on 01-30-2023 36 Call to Arabella to inform the schedule is not out that far. Suggests she call back next month. Voiced understanding. [facility] 36 Patient needs schedu led for first week in April or End of March. Blood work is usually ordered in [place] before appointment as well so it can be reviewed. Please call Arabella back to get this scheduled. Thank you. [facility] Office Visiton 12-02-2022 Follow-up visit [id number] Daniel Aguilar 1945 M Date Provider Department Center 12/02/2022 JUAN RAMON THOMAS ORTHO MPORTHO No family history on file Level of Service:02454 IN OFFICE/OUTPATIENT ESTABLISHED MOD [facility] 30-39 MIN Reason for Visit and Comments: Follow-up [274602] Pain [136] Normal [facility] Outside Recordson 11-23-2022 Outside Records [id number]:127 Normal [facility] CRPon 10-10-2022 CRP [Mass/Vol] mg/L Normal <=1.0 [facility] Comment on above: Performed By: #### C RP #### [facility] [address] [place] [address] Dr. Lissett Britton [facility] 6 mm/hr Normal <=20 [facility] Comment on above: Performed By: #### S EDR #### [facility] [address] [place] [address] Dr. Lissett Britton XR lumbar spine AP/LAT/FLX/E XTon 08-23-2022 XR lumbar spine AP/LAT/FLX/EXT [facility] [place] [address] XRay Report Signed Patient: Jhonathan Aguilar MR#: [id number] 958 : 1945 Acct:[id number] Age/Sex: 76 / M ADM Date: 08/23/22 Loc: XD Room: Type: [facility] Attending Dr: Kilo Harkins MD Copies [...] Impression dictated by: Jose A Shea Jr., Jaelyn08/23/2022 12:26 PM Dictation Location: [place] [address] Transcribed By: [facility] 08/23/221225 Dictated By: Jose A Shea Jr, 08/23/221221 Signed By: 08/23/221225 Normal [facility] [facility] Covid-19 PCR (CVDTBH)on 06-18 SARS-CoV-2 (COVID-19) RNA DANILO+probe Ql (Unsp spec) Not detected Normal NOT DETECTED [facility] Comment on above: Result Comment: This test is not yet approved or cleared by the [place] FDA. When there are no FDA-approved or cleared tests available, and other criteria are met, FDA can make tests available under an emergency access mechanism called an Emergency Use Authorization (EUA). The EUA for this test is supported by the Customer Success Manager of Health and Human Service's (HHS's) declaration [...] SARS-CoV-2. Performed By: #### C VDTBH #### [facility] [address] [address] [address] Lissett Britton MRSA NARES #1on 07-04-2022 MRSA NARES #1 Culture Observations : NO GROWTH OF MRSA AT 48 HOURS. Normal [facility] Comment on above: Performed By: #### M RSAN1 #### [facility] [address] [address] [address] Lissett Britton CRPon 05-24-2022 CRP [Mass/Vol] mg/L Normal <=1.0 [facility] Comment on above: Performed By: #### S EDR #### [facility] [address] [address] [address] Lissett Britton SED RATE WESTERGRENon 2021 SED RATE 17 mm/hr Normal <=20 [facility] Comment on above: Performed By: #### S EDR #### [facility] [address] [place] [address] Dr. Lissett Britton HIP LEFT 1 OR 2 VWS WITH PEL VISon 04-01-2022 HIP LEFT 1 OR 2 VWS WITH PELVIS [facility] Department of Radiology [address] [place] [address] Patient Name: JHONATHAN AGUILAR : [...] process. Electronically signed: Yaneli Wallace. Transcribed by: [email or web address], User Resident: Electronically Signed by: YANELI WALLACE @ 04/03/2022 06:52 AM Normal [facility] Comment on above: Order Comment: Evalu ate CBC AUTO DIFFon 02-08-2022 BASO # 0.0 103/ul Normal 0.0-0.1 [facility] Comment on above: Performed By: #### C BC #### [facility] [address] [place] [address] Dr. Lissett Britton Basophils/100 WBC (Bld) 0.8 % Normal 0.2-2.0 [facility] Comment on above: Performed By: #### C BC #### [facility] [address] [address] [address] Lissett Britton EO # 0.3 103/ul Normal 0.0-0.7 [facility] Comment on above: Performed By: #### C BC #### [facility] [address] [place] [address] Dr. Lissett Britton Eosinophils/100 WBC (Bld) 5.8 % Normal 0.9-7.0 [facility] Comment on above: Performed By: #### C BC #### [facility] [address] [address] [address] Lissett Britton Erythrocyte distribution width (RBC) [Ratio] 13.0 % Normal 11.0-15.0 [facility] Comment on above: Performed By: #### C BC #### [facility] [address] [place] [address] Dr. Lissett Britton Hematocrit (Bld) [Volume fraction] 43.5 % Normal 42.0-54.0 [facility] Comment on above: Performed By: #### C BC #### [facility] [address] [place] [address] Dr. Lissett Britton Hemoglobin (Bld) [Mass/Vol] 14.5 g/dL Normal 14.0-18.0 [facility] Comment on above: Performed By: #### C BC #### [facility] [address] [place] [address] Dr. Lissett Britton IG # 0.01 10e3/ul Normal 0.00-0.03 [facility] Comment on above: Performed By: #### C BC #### [facility] [address] [place] [address] Dr. Lissett Britton IG % 0.2 % Normal 0.0-0.5 [facility] Comment on above: Performed By: #### C BC #### [facility] [address] [place] [address] Dr. Lissett Britton LYMPH # 1.8 103/ul Normal 1.2-3.8 [facility] Comment on above: Performed By: #### C BC #### [facility] [address] [place] [address] Dr. Lissett Britton Lymphocytes/100 WBC (Bld) 36.6 % Normal 20.5-60.0 [facility] Comment on above: Performed By: #### C BC #### [facility] [address] [place] [address] Dr. Lissett Britton MANUAL DIFF REQ NO Normal [facility] Comment on above: Performed By: #### C BC #### [facility] [address] [place] [address] Dr. Lissett Britton MCH (RBC) [Entitic mass] 31.6 pg Normal 25.9-34.0 [facility] Comment on above: Performed By: #### C BC #### [facility] [address] [place] [address] Dr. Lissett Britton MCHC (RBC) [Mass/Vol] 33.3 g/dL Normal 29.9-35.2 [facility] Comment on above: Performed By: #### C BC #### [facility] [address] [place], [place] [id number] Dr. Lissett Britton MCV (RBC) [Entitic vol] 94.8 fL Critically high 80.0-94.0 [facility] Comment on above: Performed By: #### C BC #### [facility] [address] [place] [address] Dr. Lissett Britton MONO # 0.4 103/ul Normal 0.3-0.8 [facility] Comment on above: Performed By: #### C BC #### [facility] [address] [place] [address] Dr. Lissett Britton Monocytes/100 WBC (Bld) 8.6 % Normal 1.7-12.0 [facility] Comment on above: Performed By: #### C BC #### [facility] [address] [place] [address] Dr. Lissett Britton NEUT # 2.3 103/ul Normal 1.4-6.5 [facility] Comment on above: Performed By: #### C BC #### [facility] [address] [place] [address] Dr. Lissett Britton Neutrophils/100 WBC (Bld) 48.0 % Normal 43.0-75.0 [facility] Comment on above: Performed By: #### C BC #### [facility] [address] [place] [address] Dr. Lissett Britton Platelet mean volume (Bld) [Entitic vol] 9.0 fL Critically low 9.5-13.5 [facility] Comment on above: Performed By: #### C BC #### [facility] [address] [place] [address] Dr. Lissett Britton PLT 157 103/ul Normal 150-450 [facility] Comment on above: Performed By: #### C BC #### [facility] [address] [place] [address] Dr. Lissett Britton RBC 4.59 106/ul Critically low 4.70-6.10 [facility] Comment on above: Performed By: #### C BC #### [facility] [address] [place] [address] Dr. Lissett Britton WBC 4.9 103/ul Normal 4.0-11.0 [facility] Comment on above: Performed By: #### C BC #### [facility] [address] [place] [address] Dr. Lissett Britton CRPon 02-07-2022 CRP [Mass/Vol] mg/L Normal <=1.0 [facility] Comment on above: Performed By: #### C RP #### [facility] [address] [place] [address] Dr. Lissett Britton PROTIMEon 02-07-2022 INR Coag (PPP) [Relative time] 0.96 {INR} Normal [facility] Comment on above: Performed By: #### P TT, PT #### [facility] [address] [place] [address] Dr. Lissett Britton INR GUIDELINES SEE BELOW Normal [facility] Comment on above: Result Comment: ROSENDO RED INR: 2.0 - 3.0 CONDITIONS NOT LISTED BELOW 2.5 - 3.5 FOR PROSTHETIC HEART VALVE REPLACEMENT 2.5 - 3.5 RECURRENT THROMBOSIS Performed By: #### P TT, PT #### [facility] [address] [place] [address] Dr. Lissett Britton PT Coag (PPP) [Time] 10.4 s Normal 9.0-11.6 [facility] Comment on above: Performed By: #### P TT, PT #### [facility] [address] [place] [address] Dr. Lissett Britton PTTon 02-07-2022 aPTT Coag (Bld) [Time] 26.9 s Normal 22.3-36.2 [facility] Comment on above: Performed By: #### P TT, PT #### [facility] [address] [place] [address] Dr. Lissett Britton SED RATE AXTONERGRENon 2021 SED RATE 14 mm/hr Normal <=20 [facility] Comment on above: Performed By: #### S EDR #### [facility] [address] [place] [address] Dr. Lissett Britton *ANAEROBIC CULTUREon 022 *ANAEROBIC CULTURE Clinical Report: (D) Specimen: SWAB Collected: 12/16/2021 09:00 Status: Final Last Updated: 12/21/2021 08:31 ISO (Final) No Anaerobes Isolated Day 5 Normal [facility] Comment on above: Performed By: #### 3 0312 #### [address] *BODY FLUID CULTUREon 2021 *BODY FLUID CULTURE Clinical Report: (D) Specimen/Source: FLUID/HIP Collected: 12/16/2021 09:00 Status: Final Last Updated: 12/19/2021 06:53 (1) L. HIP GRAM (Final) Quantity Not Sufficient ISO (Final) Enterococcus faecalis Light Growth Results called. Read back by Dr. Cano (Ortho) 11:15 a.m. 12/18/21 ISOLATE: Enterococcus faecalis CONSUELO (mcg/ml) AMPICILLIN (AM) 1 Susceptible VANCOMYCIN (VA) 1 Susceptible Normal [facility] Comment on above: Order Comment: L. HI P Performed By: #### 3 0318 #### [address] ASPIRATION LARGE JOINTon ASPIRATION LARGE JOINT [facility] Department of Radiology [address] [place] [id number] Patient Name: JHONATHAN AGUILAR : 1945 [...] report. Electronically signed: Rosemary Shane. Transcribed by: [email or web address], User Resident: ROSEMARY MORA Electronically Signed by: ROSEMARY SHANE @ 12/16/2021 11:09 AM I personally read this/these film(s) with this resident Normal [facility] Comment on above: Order Comment: , Joshua ointment Date: 12/16/2021 , Body Part: Hip , Side: LEFT , Appointment Date: 12/16/2021 , Body Part: Hip , Side: LEFT HIP LEFT 1 OR 2 VWS WITH PEL VISon 12-03-2021 HIP LEFT 1 OR 2 VWS WITH PELVIS [facility] Department of Radiology [address] [place] [id number] Patient Name: JHONATHAN AGUILAR : 1945 [...] report. Electronically signed: Karuna Seymour. Transcribed by: [email or web address], User Resident: SAW MORA Electronically Signed by: KARUNA SEYMOUR @ 12/03/2021 03:03 PM I personally read this/these film(s) with this resident Normal [facility] Comment on above: Order Comment: Evalu ate C REACTIVE PROTEINon 022 CRP [Mass/Vol] 37.5 mg/L High 0.0-7.0 [facility] Comment on above: Performed By: #### 6 1405 #### [facility] [address] [place] [address], [facility] CBC W/DIFFon 11-29-2021 ABS IMM GRANS 0.0 10*3/uL Normal 0.0-0.2 [facility] Comment on above: Performed By: #### 5 010, [id number] #### [facility] [address] ABS NEUTROPHILS 4.8 10*3/uL Normal 1.6-7.6 [facility] Comment on above: Performed By: #### 5 010, 38060 #### [facility] [address] [place] [address], [facility] Basophils (Bld) [#/Vol] 0.0 10*3/uL Normal 0.0-0.2 [facility] Comment on above: Performed By: #### 5 102, 68269 #### [facility] [address] Basophils/100 WBC (Bld) 0.6 % Normal 0.0-1.0 [facility] Comment on above: Performed By: #### 5 102, 36832 #### [facility] [address] Eosinophils (Bld) [#/Vol] 0.1 10*3/uL Normal 0.0-0.5 [facility] Comment on above: Performed By: #### 5 102, 32657 #### [facility] [address] [facility] [place] [address], [facility] Eosinophils/100 WBC (Bld) 1.0 % Normal 0.0-6.0 [facility] Comment on above: Performed By: #### 5 102, 45862 #### [facility] [address] Erythrocyte distribution width (RBC) [Ratio] 14.4 % Normal 11.5-15.0 [facility] Comment on above: Performed By: #### 5 102, 75807 #### [facility] [address] Hematocrit (Bld) [Volume fraction] 42.8 % Normal 39.0-50.0 [facility] Comment on above: Performed By: #### 5 102, 55747 #### [facility] [address] [facility]. [address] Hemoglobin (Bld) [Mass/Vol] 14.6 g/dL Normal 13.0-17.0 [facility] Comment on above: Performed By: #### 5 102, 68331 #### [facility] [address] IMM PLATELET FRAC 7.5 % High 0.8-6.3 [facility] Comment on above: Performed By: #### 102, 36394 #### [facility] [address] IMMATURE GRANS 0.3 % Normal 0.0-1.0 [facility] Comment on above: Performed By: #### 102, 87555 #### [facility] [address] Lymphocytes (Bld) [#/Vol] 1.5 10*3/uL Normal 1.2-4.0 [facility] Comment on above: Performed By: #### 5 102, 05522 #### [facility] [address] [facility]. [address] Lymphocytes/100 WBC (Bld) 21.6 % Normal 20.0-45.0 [facility] Comment on above: Performed By: #### 5 102, 85910 #### [facility] [address] [facility]. [address] MCH (RBC) [Entitic mass] 31.7 pg Normal 27.0-33.0 [facility] Comment on above: Performed By: #### 102, 71543 #### [facility] [address] [facility] [address] MCHC (RBC) [Mass/Vol] 34.1 g/dL Normal 32.0-35.0 [facility] Comment on above: Performed By: #### 5 102, 89691 #### [facility] [address] [facility]. [address] MCV (RBC) [Entitic vol] 93.0 fL Normal 82.0-98.0 [facility] Comment on above: Performed By: #### 5 102, 95903 #### [facility] [address] Monocytes (Bld) [#/Vol] 0.4 10*3/uL Normal 0.1-1.0 [facility] Comment on above: Performed By: #### 5 102, 78965 #### [facility] [address] [facility]. [address] MONOS 6.2 % Normal 5.0-12.0 [facility] Comment on above: Performed By: #### 5 102, 12507 #### [facility] [address] Neutrophils/100 WBC (Bld) 70.3 % Normal 40.0-72.0 [facility] Comment on above: Performed By: #### 5 102, 19294 #### [facility] [address] [facility]. [address] Nucleated RBC/100 WBC (Bld) [Ratio] 0 % Normal 0-0 [facility] Comment on above: Performed By: #### 5 102, 10412 #### [facility] [address] [facility] [place] [address], [facility] PLAT CNT 124 10*3/uL Low 150-400 [facility] Comment on above: Performed By: #### 5 102, 84475 #### [facility] [address] [place] [address], [facility] RBC (Bld) [#/Vol] 4.60 10*6/uL Normal 4.20-5.70 [facility] Comment on above: Performed By: #### 5 0103, 12478 #### [facility] [address] [facility] [place] [place] [address], [facility] WBC (Bld) [#/Vol] 6.82 10*3/uL Normal 4.00-10.60 [facility] Comment on above: Performed By: #### 5 0103, 83741 #### [address] [place] [address], [facility] CT PELVIS WO CONTRASTon 11-16 CT PELVIS WO CONTRAST [facility] Department of Radiology [address] [place] [id number] Patient Name: JHONATHAN AGUILAR : 1945 Sex: M Age: Race: White Pt. Location: Patient Status: O Ordered Date: 11/29/2021 11:55:00 AM Completed Date: 11/29/2021 01:53 PM Requesting Provider: JAXSON RUDOLPH Attending Provider: JAXSON RUDOLPH Report Copy To: UDAY WILSON Signs & Symptoms: M25.552 Pain in left hip I10 History: Jean Call results to [id number] PT to go [...] details. Electronically signed: Myriam Haas. Transcribed by: [email or web address], User Resident: Electronically Signed by: MYRIAM HAAS @ 11/29/2021 02:00 PM Normal [facility] Comment on above: Order Comment: , Hei ght (ft.): 5 ft 10 in , Weight (lbs): 206 , Height (ft.): 5 ft 10 in , Weight (lbs): 206 , , , Ordering Provider - JAXSON RUDOLPH MD , SEDIMENTATION RATEon 03-14-2 022 SED RATE 10 mm/hr Normal 0-10 [facility] Comment on above: Performed By: #### 5 0103, 61794 #### [address] Vital Signs Date Time Vital Sign Value Performing Clinician Facility 09-15-2023 08:53-0500 Blood Pressure Location [facility] 09-15-2023 08:53-0500 Body temperature 97.16 [degF] [facility] 09-15-2023 08:53-0500 Diastolic blood pressure 78 mm[Hg] [facility] 09-15-2023 08:53-0500 Heart rate 74 /min [facility] 09-15-2023 08:53-0500 Systolic blood pressure 128 mm[Hg] [facility] 08-28-2023 08:58-0500 Blood Pressure Location [facility] 08-28-2023 08:58-0500 Diastolic blood pressure 79 mm[Hg] [facility] 08-28-2023 08:58-0500 Heart rate 74 /min [facility] 08-28-2023 08:58-0500 Respiratory rate 16 /min [facility] 08-28-2023 08:58-0500 Systolic blood pressure 135 mm[Hg] [facility] 08-09-2023 09:43-0500 Body temperature 97 [degF] IJEOMA Ruiz MD Work Phone: [facility] 08-09-2023 09:43-0500 Body weight 96.62 kg IJEOMA Ruiz MD Work Phone: [facility] 08-09-2023 09:43-0500 Diastolic blood pressure 73 mm[Hg] IJEOMA Ruiz MD Work Phone: [facility] 08-09-2023 09:43-0500 Heart rate 58 /min IJEOMA Ruiz MD Work Phone: [facility] 08-09-2023 09:43-0500 Respiratory rate 16 /min IJEOMA Ruiz MD Work Phone: [facility] 08-09-2023 09:43-0500 SaO2% (BldA) [Mass fraction] 98 % IJEOMA Ruiz MD Work Phone: [facility] 08-09-2023 09:43-0500 Systolic blood pressure 147 mm[Hg] IJEOMA Ruiz MD Work Phone: [facility] 05-29-2023 08:52-0400 Body temperature 96.69 [degF] IJEOMA Ruiz MD Work Phone: [facility] 05-29-2023 08:52-0400 Body weight 95.25 kg IJOEMA Ruiz MD Work Phone: [facility] 05-29-2023 08:52-0400 Diastolic blood pressure 71 mm[Hg] IJEOMA Ruiz MD Work Phone: [facility] 05-29-2023 08:52-0400 Heart rate 72 /min IJEOMA Ruiz MD Work Phone: [facility] 05-29-2023 08:52-0400 Respiratory rate 18 /min IJEOMA Ruiz MD Work Phone: [facility] 05-29-2023 08:52-0400 SaO2% (BldA) [Mass fraction] 97 % IJEOMA Ruiz MD Work Phone: [facility] 05-29-2023 08:52-0400 Systolic blood pressure 144 mm[Hg] IJEOMA Ruiz MD Work Phone: [facility] 05-23-2023 08:35-0400 Body temperature 97.5 [degF] IJEOMA Ruiz MD Work Phone: [facility] 05-23-2023 08:35-0400 Body weight 93.89 kg IJEOMA Ruiz MD Work Phone: [facility] 05-23-2023 08:35-0400 Diastolic blood pressure 74 mm[Hg] IJEOMA Ruiz MD Work Phone: [facility] 05-23-2023 08:35-0400 Heart rate 70 /min IJEOMA Ruiz MD Work Phone: [facility] 05-23-2023 08:35-0400 Respiratory rate 16 /min IJEOMA Ruiz MD Work Phone: [facility] 05-23-2023 08:35-0400 SaO2% (BldA) [Mass fraction] 98 % IJEOMA Ruiz MD Work Phone: [facility] 05-23-2023 08:35-0400 Systolic blood pressure 165 mm[Hg] IJEOMA Ruiz MD Work Phone: [facility] 05-16-2023 08:41-0400 Body temperature 97 [degF] IJEOMA Ruiz MD Work Phone: [facility] 05-16-2023 08:41-0400 Body weight 94.8 kg IJEOMA Ruiz MD Work Phone: [facility] 05-16-2023 08:41-0400 Heart rate 59 /min IJEOMA Ruiz MD Work Phone: [facility] 05-16-2023 08:41-0400 Respiratory rate 16 /min IJEOMA Ruiz MD Work Phone: [facility] 05-16-2023 08:41-0400 SaO2% (BldA) [Mass fraction] 98 % IJEOMA Ruiz MD Work Phone: [facility] 05-08-2023 08:44-0400 Body temperature 97.39 [degF] IJEOMA Ruiz MD Work Phone: [facility] 05-08-2023 08:44-0400 Body weight 93.89 kg IJEOMA Ruiz MD Work Phone: [facility] 05-08-2023 08:44-0400 Diastolic blood pressure 84 mm[Hg] IJEOMA Ruiz MD Work Phone: [facility] 05-08-2023 08:44-0400 Heart rate 68 /min IJEOMA Ruiz MD Work Phone: [facility] 05-08-2023 08:44-0400 Respiratory rate 18 /min IJEOMA Ruiz MD Work Phone: [facility] 05-08-2023 08:44-0400 SaO2% (BldA) [Mass fraction] 97 % IJEOMA Ruiz MD Work Phone: [facility] 05-08-2023 08:44-0400 Systolic blood pressure 172 mm[Hg] IJEOMA Ruiz MD Work Phone: [facility] 05-01-2023 09:18-0400 Body temperature 96.69 [degF] IJEOMA Ruiz MD Work Phone: [facility] 05-01-2023 09:18-0400 Body weight 94.8 kg IJEOMA Ruiz MD Work Phone: [facility] 05-01-2023 09:18-0400 Diastolic blood pressure 80 mm[Hg] IJEOMA Ruiz MD Work Phone: [facility] 05-01-2023 09:18-0400 Heart rate 61 /min IJEOMA Ruiz MD Work Phone: [facility] 05-01-2023 09:18-0400 Respiratory rate 18 /min IJEOMA Ruiz MD Work Phone: [facility] 05-01-2023 09:18-0400 SaO2% (BldA) [Mass fraction] 98 % IJEOMA Ruiz MD Work Phone: [facility] 05-01-2023 09:18-0400 Systolic blood pressure 158 mm[Hg] IJEOMA Ruiz MD Work Phone: [facility] 04-05-2023 13:51-0400 Body height 181 cm IJEOMA Ruiz MD Work Phone: [facility] 04-05-2023 13:51-0400 Body temperature 97.5 [degF] IJEOMA Ruiz MD Work Phone: [facility] 04-05-2023 13:51-0400 Body weight 94.8 kg IJEOMA Ruiz MD Work Phone: [facility] 04-05-2023 13:51-0400 Diastolic blood pressure 89 mm[Hg] IJEOMA Ruiz MD Work Phone: [facility] 04-05-2023 13:51-0400 Heart rate 78 /min IJEOMA Ruiz MD Work Phone: [facility] 04-05-2023 13:51-0400 Respiratory rate 18 /min IJEOMA Ruiz MD Work Phone: [facility] 04-05-2023 13:51-0400 SaO2% (BldA) [Mass fraction] 98 % IJEOMA Ruiz MD Work Phone: [facility] 04-05-2023 13:51-0400 Systolic blood pressure 145 mm[Hg] IJEOMA Ruiz MD Work Phone: [facility] 03-27-2023 09:46-0400 Blood Pressure Location [facility] 03-27-2023 09:46-0400 Diastolic blood pressure 88 mm[Hg] [facility] 03-27-2023 09:46-0400 Heart rate 90 /min [facility] 03-27-2023 09:46-0400 Respiratory rate 16 /min [facility] [facility] 03-27-2023 09:46-0400 Systolic blood pressure 138 mm[Hg] German WESTFALL [facility] 03-01-2023 09:02-0400 Blood Pressure Location Germanshane WESTFALL [facility] 03-01-2023 09:02-0400 Diastolic blood pressure 73 mm[Hg] Germanshane WESTFALL [facility] 03-01-2023 09:02-0400 Heart rate 63 /min Germanshane WESTFALL [facility] 03-01-2023 09:02-0400 Systolic blood pressure 134 mm[Hg] Germanshane WESTFALL [facility] 08-24-2021 10:00-0500 Body height 180.34 cm Kilo Harkins Other [employer] Other 08-24-2021 10:00-0500 Body mass index (BMI) [Ratio] 29.01 kg/m2 Kilo Harkins Other [employer] Other 08-24-2021 10:00-0500 Body weight 94.35 kg Kilo Harkins Other [employer] Other 08-24-2021 10:00-0500 Diastolic blood pressure 72 mm[Hg] Kilo Harkins Other [employer] Other 08-24-2021 10:00-0500 Systolic blood pressure 138 mm[Hg] Kilo Harkins Other [employer] Other Encounters Encounter Date Encounter Type Care Provider Facility Start: 02-19-2024 ambulatory Miguelito Peres Facility :[facility] Start: 12-11-2023 ambulatory German Petersi ty:[facility] [place] Start: 11-09-2023 End: 11-09-2023 ambulatory MELLY SRIVASTAVALELAND [facility] Start: 10-23-2023 End: 10-24-2023 ambulatory JUAN RAMON GONZALEZDodie [facility] Start: 10-05-2023 End: 10-05-2023 ambulatory CAIT CLAYTON Not Available Start: 09-15-2023 End: 09-16-2023 ambulatory German WESTFALL Facility:[facility] Start: 09-15-2023 End: 09-15-2023 Patient encounter procedure German WESTFALL [facility] Start: 09-07-2023 End: 09-07-2023 ambulatory Jennifer THOMASR Facility:[facility] Start: 08-28-2023 End: 08-29-2023 ambulatory German Darrian WESTFALL Facility:[facility] Start: 08-28-2023 End: 08-28-2023 Patient encounter procedure German WESTFALL [facility] Start: 08-24-2023 End: 08-24-2023 ambulatory NA YOANELER Facility:[facility] Start: 08-09-2023 End: 08-09-2023 ambulatory G KANU THOMASR Facility:[facility] Start: 08-09-2023 End: 08-09-2023 Patient encounter procedure Jennifer Ruiz MD Work Phone: Radiation Oncology Comment on above: Malignant neoplasm o f prostate (HCC) (Primary Dx) Start: 08-03-2023 End: 08-04-2023 ambulatory German WESTFALL Facility:[facility] Start: 08-03-2023 End: 08-03-2023 Patient encounter procedure German WESTFALL [facility] Start: 08-02-2023 End: 08-03-2023 ambulatory German WESTFALL Facility:[facility] Start: 08-02-2023 End: 08-02-2023 Patient encounter procedure German WESTFALL [facility] Start: 07-27-2023 End: 07-28-2023 ambulatory Jennifer RUIZ Facility:[facility] Start: 07-27-2023 End: 07-27-2023 Patient encounter procedure Jennifer Ruiz MD Work Phone: Radiation Oncology Comment on above: Malignant neoplasm o f prostate (HCC) (Primary Dx) Start: 07-17-2023 Patient encounter procedure Jennifer Ruiz MD Work Phone: [employer] Start: 07-17-2023 Radiation Oncology Note Jennifer Ruiz MD Work Phone: Radiation Oncology Comment on above: Treatment Planning Start: 07-05-2023 Patient encounter procedure Jennifer Ruiz MD Work Phone: [employer] Start: 07-05-2023 Radiation Oncology Note Jennifer Ruiz MD Work Phone: Radiation Oncology Comment on above: Simulation Note Start: 07-05-2023 End: 07-05-2023 ambulatory Jennifer RUIZ Facility:[facility] Start: 06-02-2023 Patient encounter procedure Jennifer Ruiz MD Work Phone: [employer] Start: 06-02-2023 Radiation Oncology Note Jennifer Ruiz MD Work Phone: Radiation Oncology Comment on above: Completion Note Start: 06-02-2023 End: 06-02-2023 ambulatory Jennifer THOMASDarrian Facility:[facility] Start: 06-01-2023 End: 06-01-2023 ambulatory Jennifer KANU YOANROCK Facility:[facility] Start: 05-31-2023 End: 05-31-2023 ambulatory Jennifer KANU ENGROCK Facility:[facility] Start: 05-30-2023 End: 05-30-2023 ambulatory Jennifer KANU RUIZ Facility:[facility] Start: 05-29-2023 End: 05-29-2023 ambulatory Jennifer RUIZ Facility:[facility] Start: 05-29-2023 End: 05-29-2023 Patient encounter procedure Jennifer Ruiz MD Work Phone: Radiation Oncology Comment on above: Malignant neoplasm o f prostate (HCC) (Primary Dx) Start: 05-26-2023 End: 05-26-2023 ambulatory Jennifer KANU YOANROCK Facility:[facility] Start: 05-25-2023 End: 05-25-2023 ambulatory Jennifer BAY YOANROCK Facility:[facility] Start: 05-24-2023 End: 05-24-2023 ambulatory Jennifer RUIZ Facility:[facility] Start: 05-23-2023 End: 05-23-2023 ambulatory Jennifer RUIZ Facility:[facility] Start: 05-23-2023 End: 05-23-2023 Patient encounter procedure Jennifer Ruiz MD Work Phone: Radiation Oncology Comment on above: Malignant neoplasm o f prostate (HCC) (Primary Dx) Start: 05-19-2023 End: 05-19-2023 ambulatory Jennifer RUIZ Facility:[facility] Start: 05-18-2023 End: 05-18-2023 ambulatory Jennifer RUIZ Facility:[facility] Start: 05-17-2023 Patient encounter procedure Ccf Provider [facility] Start: 05-17-2023 End: 05-17-2023 ambulatory Jennifer RUIZ Facility:[facility] Start: 05-16-2023 End: 05-16-2023 ambulatory Jennifer RUIZ Facility:[facility] Start: 05-16-2023 End: 05-16-2023 Patient encounter procedure Jennifer Ruiz MD Work Phone: Radiation Oncology Comment on above: Malignant neoplasm o f prostate (HCC) (Primary Dx) Start: 05-12-2023 End: 05-12-2023 ambulatory Jennifer RUIZ Facility:[facility] Start: 05-10-2023 End: 05-10-2023 ambulatory Jennifer RUIZ Facility:[facility] Start: 05-09-2023 End: 05-09-2023 ambulatory Jennifer RUIZ Facility:[facility] Start: 05-08-2023 End: 05-08-2023 ambulatory Jennifer RUIZ Facility:[facility] Start: 05-08-2023 End: 05-08-2023 Patient encounter procedure Jennifer Ruiz MD Work Phone: Radiation Oncology Comment on above: Malignant neoplasm o f prostate (HCC) (Primary Dx); Platelets decreased (HCC) Start: 05-05-2023 End: 05-05-2023 ambulatory Jennifer RUIZ Facility:[facility] Start: 05-04-2023 End: 05-04-2023 ambulatory Jennifer RUIZ Facility:[facility] Start: 05-04-2023 End: 05-04-2023 Patient encounter procedure Lab/[facility] Work Phone: Radiation Oncology Comment on above: Malignant neoplasm o f prostate (HCC) (Primary Dx) Start: 05-03-2023 End: 05-03-2023 ambulatory Jennifer RUIZ Facility:[facility] Start: 05-02-2023 End: 05-02-2023 ambulatory Jennifer RUIZ Facility:[facility] Start: 05-01-2023 End: 05-01-2023 ambulatory Jennifer RUIZ Facility:[facility] Start: 05-01-2023 End: 05-01-2023 Patient encounter procedure Jennifer Ruiz MD Work Phone: Radiation Oncology Comment on above: Malignant neoplasm o f prostate (HCC) (Primary Dx) Start: 04-28-2023 End: 04-28-2023 ambulatory Jennifer RUIZ Facility:[facility] Start: 04-27-2023 End: 04-27-2023 ambulatory Jennifer RUIZ Facility:[facility] Start: 04-26-2023 End: 04-26-2023 ambulatory Jennifer RUIZ Facility:[facility] Start: 04-26-2023 End: 04-26-2023 Patient encounter procedure Jennifer Ruiz MD Work Phone: Radiation Oncology Comment on above: Malignant neoplasm o f prostate (HCC) (Primary Dx) Start: 04-25-2023 Telephone encounter Jennifer Ruiz MD Work Phone: Radiation Oncology Comment on above: Orders Start: 04-18-2023 End: 04-19-2023 ambulatory Jennifer RUIZ Facility:[facility] Start: 04-18-2023 Patient encounter procedure Jennifer Ruiz MD Work Phone: [facility] Start: 04-18-2023 Radiation Oncology Note Jennifer Ruiz MD Work Phone: Radiation Oncology Comment on above: Simulation Note Start: 04-17-2023 End: 04-17-2023 ambulatory [facility] Start: 04-05-2023 End: 04-05-2023 ambulatory GERMAN WESTFALL Facility:[facility] Start: 04-05-2023 End: 04-05-2023 Patient encounter procedure Jennifer Ruiz MD Work Phone: Radiation Oncology Comment on above: Malignant neoplasm o f prostate (HCC) (Primary Dx) Start: 03-27-2023 End: 03-28-2023 ambulatory German WESTFALL Facility:[facility] Start: 03-27-2023 End: 03-27-2023 Patient encounter procedure German WESTFALL [facility] Start: 03-15-2023 End: 03-16-2023 ambulatory German WESTFALL Facility:[facility] Start: 03-15-2023 End: 03-16-2023 ambulatory FIELD COLLECTOR Marla L Roseann Facility:[facility] Start: 03-07-2023 End: 03-08-2023 ambulatory German WESTFALL Facility:[facility] Start: 03-07-2023 End: 03-07-2023 Patient encounter procedure German Darrian MALOU [facility] Start: 03-01-2023 End: 03-02-2023 ambulatory UDAY WILSON Facility:[facility] Start: 03-01-2023 End: 03-01-2023 Patient encounter procedure German R MALOU [facility] Start: 02-15-2023 ambulatory FIELD COLLECTOR Marla Roseann Facilit y:[facility] Start: 02-15-2023 End: 02-16-2023 ambulatory FIELD COLLECTOR Marla L Roseann Facility:[facility] Start: 02-15-2023 End: 02-15-2023 Lab Drop off Marla L Roseann [facility] Start: 02-14-2023 End: 02-15-2023 ambulatory UDAY Dodie WILSON Facility:[facility] Start: 02-10-2023 End: 02-11-2023 ambulatory FIELD COLLECTOR Marla L Roseann Facility:[facility] Start: 02-10-2023 End: 02-10-2023 Lab Drop off Marla L Roseann [facility] Start: 02-08-2023 End: 02-09-2023 ambulatory UDAY WILSON Facility:[facility] Start: 12-06-2022 End: 12-07-2022 ambulatory UDAY E WILSON Facility:[facility] [place] [facility] Start: 12-02-2022 End: 12-03-2022 [facility] Start: 11-23-2022 ambulatory FIELD COLLECTOR Marla Barker y:[facility] Start: 10-26-2022 End: 11-26-[address] UDAY WILSON . Facility:[facility] Start: 10-10-2022 End: 10-11-[address] DOCTOR PATEL Facility:[facility] Start: 08-23-2022 End: 08-23-2022 ambulatory Kilo Harkins Facility:[facility] Start: 08-23-2022 End: 08-23-2022 ambulatory MD Uday Wilson Work Phone: [facility] Work Phone: Start: 08-23-2022 End: 08-23-2022 Patient encounter procedure MD Uday Wilson Work Phone: [facility] Start: 07-04-2022 End: 07-05-[address] UDAY WILSON . Facility:[facility] Start: 05-24-2022 End: 05-25-[address] DOCTOR PATEL Facility:[facility] Start: 02-08-2022 End: 02-09-[address] UDAY WILSON . Facility:[facility] Start: 02-07-2022 End: 02-08-[address] UDAY WILSON . Facility:[facility] Start: 08-24-2021 End: 08-24-2021 ambulatory Kilo Harkins Other [facility] [employer] Other Start: 08-24-2021 Office outpatient vi sit 25 minutes Kilo Harkins [facility] Neurosurgery Procedures Date Procedure Procedure Detail Performing Clinician Start: 07-27-2023 Brachytherapy German HURLEY Start: 05-04-2023 Blood count complete auto&auto difrntl wbc G Kanu Ruiz MD Work Phone: Start: 03-07-2023 Transrectal needle b iopsy of prostate German WESTFLAL Start: 02-16-2023 Biopsy German CAZARES Comment on above: Prostate Start: 08-23-2022 X-ray of lumbar spin e, four views MD Uday Wilson Work Phone: Cataract (disorder) German WESTFALL Cyst (disorder) Marla Roseann Comment on above: Excision mid back H/O: artificial joint Kilo jefferson Other Repair of hip Marla Roseann Surgical procedure Marla Schw ab Comment on above: back at age 4 Plan of Treatment Date Care Activity Detail Author Start: 03-18-2027 Urine microalbumin profile DTaP,Tdap,Td Vaccine (2 - Td or Tdap) [facility] Start: 09-08-2023 End: 12-08-2023 Prostate specific Ag [Mass/volume] in Serum or Plasma PSA/PROSTSPECAG DIAG Lab Routine Malignant neoplasm of prostate (HCC) Expected: 09/08/2023, Expires: 12/08/2023 [facility] Work Phone: Comment on above: Expected: 09/08/2023 , Expires: 12/08/2023 Start: 05-19-2023 Covid-19 Vaccine ( season) Covid-19 Vaccine ( season) [facility] Start: 05-19-2023 Influenza vaccination C [facility] Start: 05-04-2023 End: 07-04-2023 CBC W Auto Differential panel - Blood CBC + DIFF Lab Routine Malignant neoplasm of prostate (HCC) Expected: 05/04/2023, Expires: 07/04/2023 [facility] Work Phone: Comment on above: Expected: 05/04/2023 , Expires: 07/04/2023 Start: 09-18-2022 ADVANCE DIRECTIVE DISCUSSION ADVANCE DIRECTIVE DISCUSSION [facility] Start: 09-18-2022 DEPRESSION ASSESSMENT DEPRESSION ASS ESSMENT [facility] Start: 09-24-2021 COVID-19 VACCINE (4 - Pfizer series) COVID-19 VACCINE (4 - Pfizer series) [facility] Start: 07-10-2020 Shingrix Vaccine (2 of 3) Shingrix Vaccine (2 of 3) [facility] Start: 2012 Pneumococcal Vaccine : 65+ (1 - PCV) Pneumococcal Vaccine: 65+ (1 - PCV) [facility] Start: 2012 PNEUMOCOCCAL: 65+ (1 - PCV) PNEUMOCOCCAL: 65+ (1 - PCV) [facility] Start: 2007 RSV Vaccine (1 - 1-d ose 60+ series) RSV Vaccine (1 - 1-dose 60+ series) [facility] Start: 1997 SHINGRIX VACCINE (1 of 2) SHINGRIX VACCINE (1 of 2) [facility] Start: 1992 COLOGUARD (FIT-DNA) COLOGUARD (FIT-D NA) [facility] Start: 1992 Colonoscopy COLONOSCOPY [facility] Start: 1992 COLORECTAL CANCER SCREENING COLORECTAL CANCER SCREENING [facility] Start: [address] COLONOGRAPHY [facility] Start: 1992 DIABETES SCREEN DIABETES SCREEN [facility] Start: 1992 Diabetes Screening Diabetes Screenin g [facility] Start: 1992 FECAL OCCULT BLOOD FECAL OCCULT BLOO D [facility] Start: [address] [facility] Start: 1982 Lipid 1996 panel - S [place] or Plasma Lipid Screening [facility] Start: 1982 LIPID SCREEN LIPID SCREEN [facility] Start: 1966 Urine microalbumin profile [facility] Start: 1965 HEPATITIS C SCREENING HEPATITIS C SC IGOR [facility] Immunizations Immunization Date Immunization Notes Care Provider Haley dorado 07-21-2023 influenza virus vaccine, unspecified formulation German WESTFALL [facility] 07-26-2022 influenza virus vaccine, unspecified formulation Marla Whitfield [facility] 07-30-2021 SARS-CoV-2 (COVID-19 ) mRNA BNT-162b2 vax Marla Roseann [facility] Comment on above: Result Comment: 2022: [id number] 11-10-2020 SARS-CoV-2 (COVID-19 ) mRNA BNT-162b2 vax Marla Roseann [facility] Comment on above: Result Comment: 2022: TPV70 10-20-2020 SARS-CoV-2 (COVID-19 ) mRNA BNT-162b2 vax Marla Roseann [facility] Comment on above: Result Comment: 2022: [id number] 05-15-2020 zoster vaccine, live Marla Sc hwab [facility] 11-13-2019 zoster vaccine, live Marla Sc hwab [facility] 11-06-2019 influenza virus vaccine, unspecified formulation Marla Roseann [facility] 11-21-2018 pneumococcal polysaccharide vaccine, 23 valent Marla Roseann [facility] 08-20-2018 influenza virus vaccine, unspecified formulation Marla Roseann [facility] 06-20-2017 pneumococcal conjuga te vaccine, 13 valent Marla Roseann [facility] 07-13-2016 influenza virus vaccine, unspecified formulation Marla Roseann [facility] 08-08-2014 influenza virus vaccine, unspecified formulation Marla Roseann [facility] 08-07-2013 influenza virus vaccine, unspecified formulation Marla Roseann [facility] NEGATED: Highlighted row has not occurred!08-27-2020 Fluzone QIV High-Dose 65YR+ MD Uday Wilson Work Phone: [facility] Payers Date Payer Category Payer Medicare [id number] 2022 Private Health Insurance [id number] 2017 Medicare HUMANA MEDICARE HUMANA MEDICARE PPO [id number] 2017-Present [phone] [address] [address] [place] [address] PPO [id number] 2012 Unknown [id number] 1959 Medicare [id number] [id number] 1947 Unknown [id number] 2.16.840.1.753785.3.579.2 .593 1947 Unknown [id number] 2.16.840.1.322525.3.579.2 .593 1947 Unknown [id number] 2.16.840.1.766143.3.579.2 .593 1947 Unknown [id number] 2.16.840.1.043376.3.579.2 .593 1947 Unknown [id number] 2.16.840.1.417083.3.579.2 .593 1947 Unknown [id number] 2.16.840.1.230997.3.579.2 .593 1947 Unknown [id number] 2.16.840.1.406650.3.579.2 .727 1947 Unknown [id number] 2.16.840.1.110129.3.579.2 .727 1947 Unknown [id number] 2.16.840.1.519397.3.579.2 .727 1947 Unknown [id number] 2.16.840.1.945576.3.579.2 .1947 Unknown [id number] 2.16.840.1.741289.3.579.2 .1947 Unknown [id number] 2.16.840.1.009275.3.579.2 .1947 Unknown [id number] 2.16.840.1.063538.3.579.2 .1947 Unknown [id number] 2.16.840.1.983602.3.579.2 1947 Unknown [id number] 2.16.840.1.182075.3.579.2 1947 Unknown [id number] 2.16.840.1.528403.3.579.2 1947 Unknown [id number] 2.16.840.1.054717.3.579.2 1947 Unknown [id number] 2.16.840.1.457803.3.579.2 1947 Unknown [id number] 2.16.840.1.144327.3.579.2 1947 Unknown [id number] 2.16.840.1.652080.3.579.2 1947 Unknown [id number] 2.16.840.1.193000.3.579.2 .1947 Unknown [id number] 2.16.840.1.658788.3.579.2 1947 Unknown [id number] 2.16.840.1.197648.3.579.2 .1947 Unknown [id number] 2.16.840.1.363581.3.579.2 7 1947 Unknown [id number] 2.16.840.1.044190.3.579.2 .727 1947 Unknown [id number] 2.16.840.1.309095.3.579.2 .727 1947 Unknown [id number] 2.16.840.1.799282.3.579.2 .727 1947 Unknown [id number] 2.16.840.1.240829.3.579.2 .727 1947 Unknown [id number] 2.16.840.1.227854.3.579.2 .727 1947 Unknown [id number] 2.16.840.1.730003.3.579.2 .1259 Self-pay Self Pay [id number] Unknown [facility] [id number] Social History Date Type Detail Facility Start: 04-05-2023 End: 08-09-2023 [facility] Start: 08-26-2020 End: 09-15-2023 Tobacco smoking status NHIS Ex-smoker (finding) [facility] Start: 1945 Sex Assigned At Male F [facility] Start: 09-18-1967 History of tobacco use Current smoke r [facility] Start: 09-18-1967 History of tobacco use Cigarette Smo ker [facility] History of tobacco use Cigar Smoker [facility] Start: 04-05-2023 End: 08-09-2023 Cigarettes smoked current (pack per day) - Reported 0.5 [facility] Start: 04-05-2023 Tobacco use and exposure User of smokeless tobacco [facility] Start: 04-05-2023 End: 08-09-2023 Alcohol intake Ex-drinker (finding) [facility] National Score (1-10 0), lower number is lower risk 61 [facility] Start: 1945 Sex Assigned At Not on file C [facility] Medical Equipment Procedure Code Equipment Code Equipment Origin al Text Equipment Identifier Dates Fusion, spine, lumbar, XLIF STRATOFUSE DBM 10CC FDA Start: 08-26-2020 Fusion, spine, lumbar, XLIF Bone-screw internal spinal fixation system, non-sterile [id number] FDA Start: 08-26-2020 Fusion, spine, lumbar, XLIF Orthopaedic bone screw, non-bioabsorbable, non-sterile [id number] FDA Start: 08-26-2020 Fusion, spine, lumbar, XLIF Orthopaedic bone screw, non-bioabsorbable, non-sterile [id number] FDA Start: 08-26-2020 Fusion, spine, lumbar, XLIF STRATOFUSE DBM 10CC FDA Start: 08-26-2020 Fusion, spine, lumbar, XLIF Bone-screw internal spinal fixation system, non-sterile [id number] FDA Start: 08-26-2020 Fusion, spine, lumbar, XLIF Bone-screw internal spinal fixation system, non-sterile [id number] FDA Start: 08-26-2020 Fusion, spine, lumbar, XLIF STRATOFUSE DBM 5CC FDA Start: 08-26-2020 Fusion, spine, lumbar, XLIF Spinal fusion graft kit [id number] FDA Start: 08-26-2020 Fusion, spine, lumbar, XLIF Spinal fusion graft kit [id number] FDA Start: 08-26-2020 Fusion, spine, lumbar, XLIF Metallic spinal fusion cage, non-sterile [id number] FDA Start: 08-26-2020 Fusion, spine, lumbar, XLIF Metallic spinal fusion cage, non-sterile [id number] FDA Start: 08-26-2020 Fusion, spine, lumbar, XLIF Metallic spinal fusion cage, non-sterile [id number] FDA Start: 08-26-2020 Functional Status Date Assessment Result Facility 09-15-2023 Functional Status N/A [facility] 08-28-2023 Functional Status N/A [facility] 03-27-2023 Functional Status N/A [facility] 03-07-2023 Functional Status N/A [facility] 03-01-2023 Functional Status N/A [facility] Clinical Notes 08-01-2016 to 11-09-2023 Jennifer Ruiz MD - 08/09/2023 10:07 AM Dara Bear LPN - 08/09/2023 9:45 AM Jennifer Gamble MD - 07/27/2023 12:39 PM Jennifer Gamble MD - 07/17/2023 12:00 AM EDT Note Date & Type Note Facility 11-09-2023 Note Infectious Diseases - clinic Progress Note - Patient name: Jhonathan Aguilar Patient Today's Date and Time: 11/09/2023, 4:50 PM Assessment/Plan Impression: Enterococcus fecalis Left hip [...] with e fecalis and 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 Recently diagnosed prostate cancer with no mets and he is done with radiotherapy and now on hormonal therapy Recommendations: ESR 27 CRP 0.63will trend in 6 months And refilled augmentin 500 mg oral q 12 h for 6 months And when he follows up in February then I will see him there and yearly after that . 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 Temperature Range: Temp: 36.5 ???C (97.7 ???F) General Appearance: Awake, alert, and in [...] component: PROCALCITON No lab exists for component: TURBIDITY , SPECIFICGRA , PHURINE , LEUKOCYTE , PROTEIN , BLOODHGB , RBCELLS , RENALEPITH No lab exists for component: TOXIGENICC Imaging Studies: Cultures: No results found for any visits on 11/09/23. Medications: This progress note was completed using a voice math instructor system. Every effort was made to ensure accuracy; however, inadvertent computerized math instructor errors may be present. Thank you for allowing us to participate in the care of this patient. Thank you for allowing me to see the patient Please call for any questions or concerns, Melly Mata MD [place] Infectious diseases P:[phone] [facility] 10-23-2023 Note Orthopedic Surgery Subjective Chief complaint: [...] hip joint. [facility]. Juan Ramon Godfrey [facility] Adult Reconstruction and Tra[facility] [facility]. [facility] 09-15-2023 Hospital Discharge instructions Patient Education 09/15/2023 [...] the likelihood that the cancer will spread. Ev 6 or lower: This indicates that the cancer cells look similar to normal prostate cells (well differentiated). Ev 7: This indicates that the cancer cells look somewhat similar to normal prostate cells (moderately differentiated). Allen 8, 9, or 10: This indicates that [...] stress of having cancer. General instructions Take kwkp-woy-qgwzclo and prescription medicines only as told by your health care provider. If you have to go to the hospital, notify your cancer specialist (oncologist). Keep all follow-up visits. This is important. Where to find more information [place] [employer]: www.cancer.org [place] Society of Clinical Oncology: www.cancer.net National Cancer [place]: www.cancer.gov Contact a health care provider if: [...] provider. Document Revised: 12/01/2021 Document Reviewed: 12/01/2021 [employer] Patient Education 2022 AppEnsure. Follow Up Care 03/27/2023 11:11:43 With:MALOU MCGREGOR, German Colmenares, URL Address: [address] [place] [address]- When: Unknown [facility] 09-07-2023 Note HNO ID: [id number] Author: Jennifer Ruiz MD Service: ? Author [...] by: Jennifer Ruiz MD cc: Dr. Westfall [facility] 08-28-2023 Hospital Discharge instructions Patient Education 08/28/2023 [...] including vitamins, herbs, eye drops, creams, and citf-ola-zptdufo medicines. Any problems you or family members [...] provider tells you to take them. ?Taking qlxv-bzo-bkwuega medicines, vitamins, herbs, and supplements. Follow your [...] provider. Document Revised: 12/01/2021 Document Reviewed: 12/01/2021 ElseCol[employer] IO Patient Education 2022 AppEnsure. Follow Up Care 06/20/2023 10:40:19 With:MALOU MCGREGOR, German Colmenares, URL Address: [facility] [address] [place] [address]- When:Within 2 Week(s) Comments:appt made for 09/15/23 w/PSA and Lupron [facility] 08-24-2023 Note HNO ID: [id number] Author: Jennifer Ruiz MD Service: ? Author Type: Physician Type: Progress Notes Filed: 09/13/2023 12:32 AM Note Text: Patient: Jhonathan Aguilar Date:08/24/2023 [facility] Department of Radiation Oncology [facility] RADIATION ONCOLOGY POST SEED IMPLANT SIMULATION NOTE [...] Electronically Signed KANU RUIZ M.D. :12 AM [facility] 08-09-2023 Note HNO ID: [id number] Author: Jennifer Ruiz MD Service: ? Author [...] by: Jennifer Ruiz MD cc: Dr. Westfall [facility] 08-09-2023 History of Present illness Narrative Radiation Oncology - Follow Up Note PATIENT NAME: Jhonathan Aguilar PATIENT DIAGNOSIS: Prostate adenocarcinoma, initial PSA 26.2, biopsy Allen score 4 + 4 = 8 (grade [...] cc: Dr. Westfall documented in this encounter [facility] 08-09-2023 Nurse Note AUA= 21 documented in this encounter [facility] 07-27-2023 Note HNO ID: [id number] Author: Jennifer Ruiz MD Service: ? Author Type: Physician Type: Progress Notes Filed: 07/27/2023 12:43 PM Note Text: Date: 07/27/23 Facility: [facility] Procedure: prostate transperineal brachytherapy implant Sources: Pd-103 [...] activity seen, results documented. La Ruiz MD [facility] 07-27-2023 History of Present illness Narrative Date: 07/27/23 Facility: [facility] Procedure: prostate transperineal brachytherapy implant Sources: Pd-103 [...] activity seen, results documented. La Ruiz MD [facility] documented in this encounter [facility] 07-20-2023 Note [id number] [facility] 07-17-2023 Note HNO ID: [id number] Author: Jennifer Ruiz MD Service: ? Author Type: Physician Type: Progress Notes Filed: 07/19/2023 12:34 AM Note Text: JHONATHAN AGUILAR [id number] 07/17/2023 [facility] Department of Radiation Oncology [facility] RADIATION ONCOLOGY BRACHYTHERAPY TREATMENT PLANNING NOTE For [...] Electronically Signed Kanu Ruiz M.D. / LALIT :12 PM [facility] 07-17-2023 History of Present illness Narrative JHONATHAN AGUILAR [id number] 07/17/2023 [facility] Department of Radiation Oncology [facility] RADIATION ONCOLOGY BRACHYTHERAPY TREATMENT PLANNING NOTE For reasons stated in the consult note, JHONATHAN AGULIAR is a candidate for definitive radiation. Based [...] Electronically Signed Kanu Ruiz M.D. / LALIT :12 PM documented in this encounter [facility] 07-06-2023 Note HNO ID: [id number] Author: Jennifer Ruiz MD Service: ? Author [...] Visit completed when applicable. Jennifer Ruiz MD [facility] 07-05-2023 Note HNO ID: [id number] Author: Jennifer Ruiz MD Service: ? Author Type: Physician Type: Progress Notes Filed: 07/06/2023 12:33 AM Note Text: JHONATHAN AGUILAR [id number] 07/05/2023 [facility] Department of Radiation Oncology [facility] RADIATION ONCOLOGY SIMULATION NOTE DATE OF SIMULATION: 07/05/2023 MACHINE: [employer] Focus 500 Diagnosis: 185 (Prostate Gland) AREA:Prostate PATIENT POSITION: Supine CONTRAST: None PROTOCOL: None CONCURRENT THERAPY: None FIXATION DEVICE: UTS Stabilization device by [employer]. PROCEDURE: Patient was simulated in exaggerated dorsal lithotomy position. Serial images of the prostate were acquired using TRUS and reconstructed in 3D space. These images were imported into [employer] Prostate planning system where a plan was generated. ASSESSMENT/PLAN: Patient tolerated simulation procedure well. Electronically Signed Kanu Ruiz M.D. / LALIT 35:18 PM [facility] 07-05-2023 History of Present illness Narrative JHONATHAN AGUILAR [id number] 07/05/2023 [facility] Department of Radiation Oncology [facility] RADIATION ONCOLOGY SIMULATION NOTE DATE OF SIMULATION: 07/05/2023 MACHINE: [employer] Focus 500 Diagnosis: 185 (Prostate Gland) AREA:Prostate PATIENT POSITION: Supine CONTRAST: None PROTOCOL: None CONCURRENT THERAPY: None FIXATION DEVICE: UTS Stabilization device by [employer]. PROCEDURE: Patient was simulated in exaggerated dorsal lithotomy position. Serial images of the prostate were acquired using TRUS and reconstructed in 3D space. These images were imported into [employer] Prostate planning system where a plan was generated. ASSESSMENT/PLAN: Patient tolerated simulation procedure well. Electronically Signed Kanu Ruiz M.D. / LALIT 35:18 PM documented in this encounter [facility] 06-02-2023 Note HNO ID: [id number] Author: Jennifer Ruiz MD Service: ? Author Type: Physician Type: Progress Notes Filed: 06/08/2023 12:34 AM Note Text: [facility] Radiation Oncology Department RADIATION ONCOLOGY - COMPLETION NOTE PATIENT: JF AGUILAR: 1945 DATES OF TREATMENT: 04/26/23 - 06/02/23 DIAGNOSIS: Prostate adenocarcinoma, initial PSA 26.2, biopsy Allen score 4 + 4 = 8 (grade [...] Staff Physician Kanu Ruiz M.D. / NRS 34:31 PM Electronically Signed cc: Dr. Westfall [facility] 06-02-2023 History of Present illness Narrative [facility] Radiation Oncology Department RADIATION ONCOLOGY - COMPLETION NOTE PATIENT: JF AGUILAR: 1945 DATES OF TREATMENT: 04/26/23 - 06/02/23 DIAGNOSIS: Prostate adenocarcinoma, initial PSA 26.2, biopsy Allen score 4 + 4 = 8 (grade [...] boost. Staff Physician Kanu Ruiz M.D. / RACHID 34:31 PM documented in this encounter [facility] 05-29-2023 Note HNO ID: [id number] Author: Jennifer Ruiz MD Service: ? Author Type: Physician Type: Progress Notes Filed: 05/29/2023 9:10 AM Note Text: Radiation Oncology - On Treatment Review (OTR) Note PATIENT NAME: Jhonathan Aguilar PATIENT DIAGNOSIS: Prostate adenocarcinoma, initial PSA 26.2, biopsy Allen score 4 + 4 = 8 (grade [...] Discussed upcoming brachytherapy boost. Jennifer Ruiz MD [facility] 05-29-2023 History of Present illness Narrative Radiation Oncology - On Treatment Review (OTR) Note PATIENT NAME: Jhonathan Aguilar PATIENT DIAGNOSIS: Prostate adenocarcinoma, initial PSA 26.2, biopsy Allen score 4 + 4 = 8 (grade [...] Jennifer Ruiz MD documented in this encounter [facility] 05-23-2023 Note HNO ID: [id number] Author: Jennifer Ruiz MD Service: ? Author Type: Physician Type: Progress Notes Filed: 05/23/2023 8:56 AM Note Text: Radiation Oncology - On Treatment Review (OTR) Note PATIENT NAME: Jhonathan Aguilar PATIENT DIAGNOSIS: Prostate adenocarcinoma, initial PSA 26.2, biopsy Ve score 4 + 4 = 8 (grade [...] radiation treatment as planned. Jennifer Ruiz MD [facility] 05-23-2023 History of Present illness Narrative Radiation [...] parameters. Continue radiation treatment as planned. Jennifer uRiz MD documented in this encounter [facility] 05-16-2023 Note HNO ID: [id number] Author: Jennifer Ruiz MD Service: ? Author [...] radiation treatment as planned. Jennifer Ruiz MD [facility] 05-16-2023 History of Present illness Narrative Radiation [...] Jennifer Ruiz MD documented in this encounter [facility] 05-08-2023 Note HNO ID: [id number] Author: Jennifer Ruiz MD Service: ? Author [...] radiation treatment as planned. Jennifer Ruiz MD [facility] 05-08-2023 History of Present illness Narrative Radiation Oncology - On Treatment Review (OTR) Note PATIENT NAME: Jhonathan Aguilar PATIENT DIAGNOSIS: Prostate adenocarcinoma, initial PSA 26.2, biopsy Allen score 4 + 4 = 8 (grade [...] Jennifer Ruiz MD documented in this encounter [facility] 05-04-2023 Nurse Note Jhonathan Aguilar presents in office today for: Lab Draw only . Ordering Provider: Kanu Ruiz M.D. Test (s) ordered: CBC Method for obtaining blood: Phlebotomy was performed, accessing right antecubital vein. Needle removed intact. Dressing secured. Patient denies discomfort, dizziness, light-headedness or weakness and left the department without assist. Rosa Lau, RN documented in this encounter [facility] 05-01-2023 Note HNO ID: [id number] Author: Jennifer Ruiz MD Service: ? Author [...] radiation treatment as planned. Jennifer Ruiz MD [facility] 05-01-2023 History of Present illness Narrative Radiation Oncology - On Treatment Review (OTR) Note PATIENT NAME: Jhonathan Aguilar PATIENT DIAGNOSIS: Prostate adenocarcinoma, initial PSA 26.2, biopsy Allen score 4 + 4 = 8 (grade [...] Jennifer Ruiz MD documented in this encounter [facility] 04-26-2023 Note HNO ID: [id number] Author: Jennifer Ruiz MD Service: ? Author [...] Continue radiation as prescribed. Jennifer Ruiz MD [facility] 04-26-2023 History of Present illness Narrative Radiation [...] Jennifer Ruiz MD documented in this encounter [facility] 04-25-2023 Miscellaneous Notes CBC order, during second week of radiation therapy, is pending your approval. Dara Russell LPN documented in this encounter [facility] 04-18-2023 Note HNO ID: [id number] Author: Jennifer Ruiz MD Service: ? Author Type: Physician Type: Progress Notes Filed: 04/20/2023 12:33 AM Note Text: JHONATHAN AGUILAR [id number] 04/18/2023 [facility] Radiation Oncology Department SIMULATION NOTE DATE OF SIMULATION: 04/18/2023 THERAPIST: Charisse Celaya MACHINE: CNZZ DIAGNOSIS: Malignant neoplasm of [id number] AREA: PELVIS CONTRAST: None Consent in Epic: [...] Electronically Signed Kanu Ruiz M.D. / NRS 37:23 AM [facility] 04-18-2023 Note HNO ID: [id number] Author: Jennifer Ruiz MD Service: ? Author Type: Physician Type: Progress Notes Filed: 04/28/2023 12:15 PM Note Text: JHONATHAN AGUILAR [id number] 04/18/2023 [facility] Department of Radiation Oncology Treatment Planning Note [...] Electronically Signed Kanu Ruiz M.D. 2:11 PM [facility] 04-18-2023 History of Present illness Narrative JHONATHAN AGUILAR [id number] 04/18/2023 [facility] Radiation Oncology Department SIMULATION NOTE DATE OF SIMULATION: 04/18/2023 THERAPIST: Charisse Celaya MACHINE: CNZZ DIAGNOSIS: Malignant neoplasm of [id number] AREA: PELVIS CONTRAST: None Consent in Epic: [...] Electronically Signed Kanu Ruiz M.D. / NRS 37:23 AM documented in this encounter [facility] 04-17-2023 Note Infectious Diseases - clinic Progress [...] with e fecalis and he was on fci augmentin for that and latest cultures from [...] progress note was completed using a voice math instructor system. Every effort was made to ensure accuracy; however, inadvertent computerized math instructor errors may be present. Thank you for allowing us to participate in the care of this patient. Thank you for allowing me to see the patient Please call for any questions or concerns, Melly Mata MD [place] Infectious diseases P:[phone] [facility] 04-05-2023 Note HNO ID: [id number] Author: Jennifer Ruiz MD Service: ? Author [...] 07, 2023 revealed: 42 cm? gland. Adenocarcinoma Allen 8 (4+4) from the left base left lateral mid left lateral apical and right lateral base cores, in addition Allen 74+3 from right base right mid right [...] ASSESSMENT/PLAN: Prostate adenocarcinoma, initial PSA 26.2, biopsy Allen score 4 + 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 Prostate cancer (C61), 2019 NCCN Risk Group: High Risk Group Clinical State: Localized Cancer - New Diagnosis Patient presents with a localized but high risk adenocarcinoma prostate. Otherwise exce (more content not included)... 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 BINDER GIVEN Signed by: Rosa Lau RN During your visit today, we recorded the following information about you: Allergies As of Date: 04/05/2023 Noted Allergy Reaction CODEINE 04/05/2023 1 - Mental Status Change OXYCODONE 04/05/2023 14 - Other: See Comments Comments: Dizziness, syncope Date Reviewed: 04/05/2023 Reviewed by: Rosa Lau RN - Fully Assessed Prescriptions as of [...] Encounter Status:Closed by ROSA LAU on 04/10/23 [facility] 04-05-2023 Nurse Note AUA 13 Rosa Lau RN documented in this encounter [facility] 04-05-2023 History of Present illness Narrative Radiation Oncology - Prostate Cancer New Patient/Consult Note PATIENT NAME: Jhonathan Aguilar PATIENT REQUESTING PROVIDER: Dr. Westfall DIAGNOSIS: 77 year old male with prostate adenocarcinoma, initial PSA 26.2, biopsy Allen score 4 + 4 = 8 (grade [...] 07, 2023 revealed: 42 cm gland. Adenocarcinoma Allen 8 (4+4) from the left base left [...] ASSESSMENT/PLAN: Prostate adenocarcinoma, initial PSA 26.2, biopsy Allen score 4 + 4 = 8 (grade [...] 1 is the provider ID). German Westfall [address] [facility] [id number] documented in this encounter [facility] 03-27-2023 Hospital Discharge instructions Patient Education 03/27/2023 [...] advanced cancer. Where to find more information [employer] [place] [employer]: www.cancer.org National Cancer [place]: www.cancer.gov Contact a health care provider if: [...] provider. Document Revised: 12/16/2021 Document Reviewed: 12/16/2021 [employer] Or[employer] Patient Education 2022 [employer] 03/27/2023 10:32:10 Brachytherapy for Prostate Cancer Brachytherapy [...] including vitamins, herbs, eye drops, creams, and fujz-pwb-kpgwexx medicines. Any problems you or family members [...] provider tells you to take them. ?Taking hbdi-jqy-byagmcc medicines, vitamins, herbs, and supplements. Follow your [...] provider. Document Revised: 12/01/2021 Document Reviewed: 12/01/2021 [employer] Patient Education 2022 [employer]Ensure. Follow Up Care 03/15/2023 11:47:48 With:MALOU MCGREGOR, German Colmenares, URL Address: [facility] [address], [place] [address]- [phone] When: Unknown Comments:referral to rad onc [facility] 03-07-2023 Note [id number] [facility] 03-07-2023 Hospital Discharge instructions Patient Education [...] for your post-operative appointment in 1-2 weeks [phone] or [phone] Follow Up Care 03/01/2023 11:26:32 With:German WESTFALL Address: [facility] [address], [place] [address]- Business (1) When: Unknown Comments:Keep scheduled appointment 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 Pt understands the increased risk for cancer associated with the bladder. Follow-up With When Contact Information MALOU MCGREGOR, German Colmenares, URL [facility] [address] [place] [address] [phone] Additional Instructions: TRUS/bx Patient Education Cancer Screening for Men I, Denisha Diana, personally scribed for Dr. Westfall [...] Tab, 20 mg= 1 tab(s), Oral, QID, IN (more content not included)... [facility] Comment on above: Result Comment: Elec [...] if anything looks unusual. Men with a nuujhq-yfzi-aiwefu risk for skin cancer may want to see a cat skinner (skin former) for an annual body check. What are the benefits of screening? Cancer screening is done to look for cancer in the very early stages, before it spreads and becomes harder to treat and before you would start to notice symptoms. Finding cancer early improves the chances of successful treatment. It may save your life. Where to find more information [place] Cancer [employer]: www.cancer.org Centers for Disease Control and Prevention: www.cdc.gov National Cancer [place]: www.cancer.gov Contact a health care provider if: [...] provider. Document Revised: 01/31/2022 Document Reviewed: 07/31/2020 [employer] Patient Education 2022 [employer]. Follow Up Care 02/15/2023 16:20:20 With:MALOU MCGREGOR, German Colmenares, URL Address: [facility] [address], [place] [address]- [phone] When: Unknown Comments:TRUS/bx [facility] 02-27-2023 Note Call to request lab orders be faxed to [facility] for pt to get drawn prior to I.D. joshua . Faxed. [facility] 12-02-2022 Note Orthopedic Surgery Subjective Chief complaint: [...] rigors or breathless (more content not included)... [facility] 08-24-2021 Evaluation note Encounter Date Diagnosis Assessment [...] osteoarthritis involving multiple joints (ICD-10 - M15.9) [employer] Other 11-14-2016 History general Narrative - Reported* [...] XLIF-Doctor Harkins 08/2020 Hospitalization History see above [employer] Other evaluation + Plan note Future Appointments Appointment Date:02/14/2023 09:30:00 AM Scheduled Provider: Location:[facility] Appointment Type:FM Medicare Wellness [facility] Future Appointments Appointment Date:03/01/2023 09:00:00 AM Scheduled Provider:German WESTFALL MD [facility] Type:URO New Patient Appointment Date:02/19/2024 08:00:00 AM Scheduled Provider: [facility] Type: Medicare Wellness [facility] Future Appointments Appointment Date:03/02/2023 08:30:00 AM Scheduled Provider: Location:[facility] Appointment Type:Urology CALL PAT FT Appointment Date:03/07/2023 08:00:00 AM Scheduled Provider: Location:[facility] Appointment Type:Urology FT Appointment Date:03/27/2023 09:15:00 AM Scheduled Provider:German WESTFALL MD [facility] Type:URO Office Visit Appointment Date:02/19/2024 08:00:00 AM Scheduled Provider: Location:[facility] Appointment Type: Medicare Wellness Subsequent Future Scheduled Tests Laboratory* PSA Total 03/01/23 [facility] Evaluation + Plan note Future Appointments Appointment Date:03/27/2023 09:15:00 AM Scheduled Provider:German WESTFALL MD Location:[facility] Appointment Type:URO Office Visit Appointment Date:02/19/2024 08:00:00 AM Scheduled Provider: [facility] Appoint[facility] Type: Medicare Wellness Subsequent Diagnostic Tests Pending * Prostate Histology ([facility]) 03/07/23 Future Scheduled Tests Laboratory* PSA Total 03/01/[address] [facility] [address] Future Appointments Appointment Date:09/12/2023 09:00:00 AM Scheduled Provider: Location:[facility] Appointment Type:URO Nurse Visit Appointment Date:09/15/2023 08:45:00 AM Scheduled Provider:German WESTFALL [facility] Office Visit Appointment Date:02/19/2024 08:00:00 AM Scheduled Provider: Location:[facility] Appointment Type: Medicare Wellness Subsequent Future Scheduled Tests Laboratory* PSA Total 03/01/23 [facility] evaluation + Plan note Future Appointments Appointment Date:08/28/2023 08:45:00 AM Scheduled Provider:German WESTFALL MD Location:[facility] Appointment Type:URO Office Visit Appointment Date:09/15/2023 08:45:00 AM Scheduled Provider:German WESTFALL MD [facility] App[facility] Type:URO Office Visit Appointment Date:02/19/2024 08:00:00 AM Scheduled Provider: Location:[facility] Appointment Type: Medicare Wellness Subsequent Future Scheduled Tests Laboratory* PSA Total 03/01/23 [facility] evaluation + Plan note Future Appointments Appointment Date:09/15/2023 08:45:00 AM Scheduled Provider:German WESTFALL [facility] Type:URO Office Visit Appointment Date:02/19/2024 08:00:00 AM Scheduled Provider: Location:[facility] Appointment Type:FM Medicare Wellness Subsequent Future Scheduled Tests Laboratory* PSA Total 03/01/23 [facility] evalcadaas + Plan note Future Appointments Appointment Date:12/11/2023 08:45:00 AM Scheduled Provider:German WESTFALL MD [facility] Type:URO Office Visit Appointment Date:02/19/2024 08:00:00 AM Scheduled Provider: Location:[facility] Appointment Type: Medicare Wellness Subsequent Diagnostic Tests Pending * PSA Total 11/02/23 Future Scheduled Tests Laboratory* PSA Total 03/01/23 [facility] evaluation noteNo assessment information available [facility] Work Phone[facility]* Diagnosis Malignant neoplasm of prostate (HCC)- Primary Malignant neoplasm of prostate documented in this encounter [facility] note* Diagnosis Malignant neoplasm of prostate (HCC)- Primary Malignant neoplasm of prostate documented in this encounter [facility] note* Diagnosis Malignant neoplasm of prostate (HCC)- Primary Malignant neoplasm of prostate documented in this encounter [facility] note* Diagnosis Malignant neoplasm of prostate (HCC)- Primary Malignant neoplasm of prostate documented in this encounter [facility] note* Diagnosis Malignant neoplasm of prostate (HCC)- Primary Malignant neoplasm of prostate Platelets decreased (HCC) Thrombocytopenia, unspecified documented in this encounter [facility] note* Diagnosis Malignant neoplasm of prostate (HCC)- Primary Malignant neoplasm of prostate documented in this encounter [facility] note* Diagnosis Malignant neoplasm of prostate (HCC)- Primary Malignant neoplasm of prostate documented in this encounter [facility] note* Diagnosis Malignant neoplasm of prostate (HCC)- Primary Malignant neoplasm of prostate documented in this encounter [facility] note* Diagnosis Malignant neoplasm of prostate (HCC)- Primary Malignant neoplasm of prostate [facility] N[facility] No data available for this [facility] No data available for this section [facility] No data available for this section [facility] Summary Purpose Family History No Family History [...] VOLUME STUDY brachy therapy Jennifer Ruiz MD [facility]PR[facility] [address] Jennifer Ruiz MD [address] [place] [address] Referral ID Status Reason Start Date Expiration Date V isits Requested Visits Authorized [id number] Authorized 07/27/2023 10/25/2023 4 4 (unrecognized sect ion and content) No Status Records FoundNo Status Records FoundNo Status Records FoundNo Status Records FoundNo Status Records FoundNo Status Records FoundNo Status Records Found INFORMATION SOURCE (unrecogn ized section and content) DATE CREATED AUTHOR 04/11/2022 [facility] DATE CREATED AUTHOR AUTHOR'S ORGANIZ ATION 08/24/2022 [facility] DATE CREATED AUTHOR AUTHOR'S ORGANIZ ATION 12/24/2022 [facility] DATE CREATED AUTHOR AUTHOR'S ORGANIZ ATION 09/16/2023 [facility] DATE CREATED AUTHOR AUTHOR'S ORGANIZ ATION 09/16/2023 [facility] DATE CREATED AUTHOR AUTHOR'S ORGANIZ ATION 10/06/2023 [facility] DATE CREATED AUTHOR AUTHOR'S ORGANIZ ATION 11/17/2023 [facility] Care Teams (unrecognized sec tion and [...] or prosecute any alcohol or drug abuse patient.[facility] the event this information is protected by the Federal Confidentiality of Alcohol and Drug Abuse Patient Records regulations: The Federal rules restrict any use of the information to criminally investigate or prosecute any alcohol or drug abuse patient.[facility] the event this information is protected by the Federal Confidentiality of Alcohol and Drug Abuse Patient Records regulations: The Federal rules restrict any use of the information to criminally investigate or prosecute any alcohol or drug abuse patient.[facility] System[facility] the event this information is protected by the Federal Confidentiality of Alcohol and Drug Abuse Patient Records regulations: The Federal rules restrict any use of the information to criminally investigate or prosecute any alcohol or drug abuse patient.[facility] System[facility] the event this information is protected by the Federal Confidentiality of Alcohol and Drug Abuse Patient Records regulations: The Federal rules restrict any use of the information to criminally investigate or prosecute any alcohol or drug abuse patient.[facility] the event this information is protected by the Federal Confidentiality of Alcohol and Drug Abuse Patient Records regulations: The Federal rules restrict any use of the information to criminally investigate or prosecute any alcohol or drug abuse patient.[facility] System[facility] the event this information is protected by the Federal Confidentiality of Alcohol and Drug Abuse Patient Records regulations: The Federal rules restrict any use of the information to criminally investigate or prosecute any alcohol or drug abuse patient.[facility] System[facility] the event this information is protected by the Federal Confidentiality of Alcohol and Drug Abuse Patient Records regulations: The Federal rules restrict any use of the information to criminally investigate or prosecute any alcohol or drug abuse patient.[facility] System[facility] the event this information is protected by the Federal Confidentiality of Alcohol and Drug Abuse Patient Records regulations: The Federal rules restrict any use of the information to criminally investigate or prosecute any alcohol or drug abuse patient.[facility] SystemIn the event this information is protected by the Federal Confidentiality of Alcohol and Drug Abuse Patient Records regulations: The Federal rules restrict any use of the information to criminally investigate or prosecute any alcohol or drug abuse patient.[facility] SystemIn the event this information is protected by the Federal Confidentiality of Alcohol and Drug Abuse Patient Records regulations: The Federal rules restrict any use of the information to criminally investigate or prosecute any alcohol or drug abuse patient.[facility] System[facility] the event this information is protected by the Federal Confidentiality of Alcohol and Drug Abuse Patient Records regulations: The Federal rules restrict any use of the information to criminally investigate or prosecute any alcohol or drug abuse patient.[facility] SystemIn the event this information is protected by the Federal Confidentiality of Alcohol and Drug Abuse Patient Records regulations: The Federal rules restrict any use of the information to criminally investigate or prosecute any alcohol or drug abuse patient.[facility] FOR RECORDS PERTAINING TO PATIENTS WHO ARE [...] BE BASED ON THE PRIMARY CLINICAL RECORDS. [facility] [employer] [facility]. provides no warranty or guarantee of the accuracy or completeness of information in this document.
[2023-11-21 16:43] VITALS: BP 164/97; PULSE 72; RESP 14; O2SAT 97; BMI 30.8
--- NOTE | 2023-11-21 16:57 | ED.WOUNDLAC1 ---
HPI - Wound/Laceration General Chief Complaint: Wound/Laceration Stated Complaint: Wound/Laceration Time Seen by Provider: 11/21/23 16:41 Source: patient Mode of arrival: walk-in Limitations: no limitations History of Present Illness HPI narrative: Patient is a 78-year-old male who presents to the emergency department for the evaluation of laceration to the left middle finger that happened just prior to arrival. Patient is noted to have a 2 cm laceration on the middle phalanx of the left middle finger. Bleeding is controlled. Unknown last tetanus. No other associated injuries. Related Data Home Medications Medication Instructions Recorded Confirmed Lactobacillus rhamnosus GG 10 1 cap PO DAILY 07/13/23 11/21/23 billion cell capsule (Culturelle) acetaminophen 325 mg capsule 650 mg PO Q6H PRN pain 07/13/23 11/21/23 (Tylenol) amoxicillin 500 mg-potassium 1 tab PO BID 07/13/23 11/21/23 clavulanate 125 mg tablet (Augmentin) bicalutamide 50 mg tablet 50 mg PO DAILY 07/13/23 11/21/23 calcium carb-vit D3-minerals 600 1 tab PO DAILY 07/13/23 11/21/23 mg calcium-400 unit tablet dicyclomine 20 mg tablet 20 mg PO BID 07/13/23 11/21/23 meloxicam 7.5 mg tablet 7.5 mg PO BID 07/13/23 11/21/23 Allergies Allergy/AdvReac Type Severity Reaction Status Date / Time celecoxib [From Celebrex] Allergy renal Verified 11/21/23 16:47 insufficiency codeine Allergy Hallucinati Verified 11/21/23 16:47 ng ketoprofen [From Orudis] Allergy Verified 11/21/23 16:47 oxycodone Allergy syncope Verified 11/21/23 16:47 Review of Systems ROS Constitutional Denies: fever or chills Ears, nose, mouth, and throat Denies: throat pain or nasal congestion Respiratory Denies: shortness of breath Gastrointestinal Denies: nausea or vomiting Musculoskeletal Reports: extremity pain Integumentary/Breast Denies: rash Neurological Denies: headache Endocrine Denies: excessive urination Hematologic/Lymphatic Denies: easy bruising or easy bleeding 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 - Infection and inflammatory reaction due to internal left hip prosthesis, initial encounter (ICD-10) Surgical History (Updated 07/27/23 @ 07:10 by Keren Tsai) History of carpal tunnel release ?Z98.890 - Other specified postprocedural states (ICD-10) History of hip surgery ?Z98.890 - Other specified postprocedural states (ICD-10) History of spinal surgery ?Z98.890 - Other specified postprocedural states (ICD-10) History of cataract extraction ?Z98.49 - Cataract extraction status, unspecified eye (ICD-10) Hx of prostate biopsy ?Z98.890 - Other specified postprocedural states (ICD-10) History of spinal surgery ?Z98.890 - Other specified postprocedural states (ICD-10) History of total hip arthroplasty ?Z96.649 - Presence of unspecified artificial hip joint (ICD-10) Family History (Updated 07/13/23 @ 08:31 by Rosa Condon NP) Other Family history of breast cancer Family history of colon cancer Family history of coronary artery disease Family history of heart disease Family history of hypertension Family history of prostate cancer Social History Within the past year, how often did you have a drink containing alcohol: monthly or less Smoking status: Former smoker Non-prescribed substance use: denies use Highest level of school completed/degree received: high school graduate Exam Narrative Exam Narrative: Gen.: Awake, alert, in no distress Head: Normocephalic, atraumatic ENT: Moist mucous membranes Respiratory: No respiratory distress Extremities: Moves extremities equally, Laceration on the middle phalanx of the left middle finger, laceration extends into the subcutaneous tissue with no bony or tendon visualization. Normal flexion and extension at the DIP and PIP joints. Psych: Normal mood and affect Neuro: No focal neuro deficit Skin: Warm, dry, intact Constitutional Vital Signs, click to edit/add: Last Vital Signs Pulse 72 11/21/23 16:43 Resp 14 11/21/23 16:43 BP 164/97 H 11/21/23 16:43 Pulse Ox 97 11/21/23 16:43 O2 Del Method Room Air 11/21/23 16:43 Course Vital Signs Vital signs: Vital Signs Pulse Rate 72 11/21/23 16:43 Respiratory Rate 14 11/21/23 16:43 Blood Pressure 164/97 H 11/21/23 16:43 Pulse Oximetry 97 11/21/23 16:43 Oxygen Delivery Method Room Air 11/21/23 16:43 Pulse Rate 72 11/21/23 16:43 Respiratory Rate 14 11/21/23 16:43 Blood Pressure 164/97 H 11/21/23 16:43 Pulse Oximetry 97 11/21/23 16:43 Oxygen Delivery Method Room Air 11/21/23 16:43 MDM - Wound/Laceration MDM Narrative Medical decision making narrative: X-rays with no evidence of bony involvement, laceration repaired without difficulty. Please see procedure note for details. Sutures removed in 7 to 10 days with PCP. Tetanus updated in the ER.Return to the emergency department if symptoms change or worsen Laceration repair: Done under sterile conditions. The use of Shur-Clens prep the area. Local injection with lidocaine 1% was used, approximately 3 cc. The wound was irrigated copiously with normal saline. The wound was explored there was no evidence of foreign material. The laceration was approximated with 3-0 nylon. 5 simple interrupted sutures were placed. Patient tolerated the procedure well. The patient was neurovascularly intact post. the patient had bacitracin applied to the laceration and a dry sterile dressing was place. The patient will need to follow-up in the next 7-10 days for removal Medical Records Attestation: I reviewed the patient's medical records. Imaging Data XR finger: Attestation: I personally reviewed and interpreted this imaging study as follows: Discharge Plan Discharge Chief Complaint: Wound/Laceration Clinical Impression: Finger laceration Patient Disposition: Home, Self-Care Time of Disposition Decision: 16:59 Condition: Good Prescriptions / Home Meds: No Action amoxicillin-pot clavulanate [Augmentin] 500-125 mg tablet 1 tab PO BID meloxicam 7.5 mg tablet 7.5 mg PO BID bicalutamide 50 mg tablet 50 mg PO DAILY calcium carbonate-vit D3-min 600 mg calcium- 400 unit tablet 1 tab PO DAILY dicyclomine 20 mg tablet 20 mg PO BID Culturelle 10 billion cell capsule 1 cap PO DAILY acetaminophen [Tylenol] 325 mg capsule 650 mg PO Q6H PRN (Reason: pain) Instructions: Finger Laceration (ED) Additional Instructions: Sutures removed with your doctor's office in 7-10 days Referrals: ENIO ROSS [Primary Care Provider] - 1 week Stand Alone Forms: Portal Instructions
[2023-11-21] MEDS: BACITRACIN 0.9 GM PACKET 1 PACKET TOPICAL (17:22)
[2023-11-21] MEDS: LIDOCAINE HCL 1% 100 MG/10 ML MDV INJ (17:22)
[2023-11-21] MEDS: ADACEL DIPH,PERTUSS(ACELL),TET VAC/PF 0.5 ML ADULT SYRINGE IM (17:23)
--- NOTE | 2023-11-21 17:25 | XR_ITS ---
The [address] [address] Patient Name: MORENA HICKMAN MRN: [id number] date: 1945 Sex: M Assigned Patient Location: ER Current Patient Location: ER Accession/Order Number: [id number] Exam Date: 11/21/2023 17:20 Report Date: 11/21/2023 17:51 At the request of: NAMITA NUR Procedure: XR finger LT min 2V EXAM: XR finger LT min 2V HISTORY: laceration third digit. COMPARISON: None. TECHNIQUE: 3 views of the left hand were obtained with special attention to the third digit. FINDINGS: There is no evidence of an acute fracture or dislocation. Significant degenerative changes are seen at the first carpometacarpal joint, as well as throughout the interphalangeal joints as visualized. There is soft tissue swelling about the distal aspect of the third digit and the proximal interphalangeal joint. A soft tissue laceration is noted along the radial aspect at the level of the midshaft of the middle phalanx. Small soft tissue calcifications or remote bone fracture fragment is seen along the ulnar aspect of the proximal interphalangeal joint of the third digit. No other soft tissue calcification or radiopaque foreign body is identified. XR/XR finger LT min 2V IMPRESSION: No acute fracture or dislocation. Soft tissue calcifications or remote bony fragments are seen associated with the middle phalanx of the third digit. Degenerative changes are noted diffusely, without a radiopaque foreign body. Focal soft tissue laceration is seen in the third digit. Electronically authenticated by: JERED RAE Date: 11/21/2023 17:51
== END 2023-11-21 17:59 | disposition home or self-care (01) ==
PROVIDERS: Emergency Provider Student in an Organized Health Care Education/Training Program; PCP Family Medicine
DX: S61.213A Laceration without foreign body of left middle finger without damage to nail, initial encounter (principal); Z23 Encounter for immunization; W26.8XXA Contact with other sharp object(s), not elsewhere classified, initial encounter; Z79.899 Other long term (current) drug therapy; M19.90 Unspecified osteoarthritis, unspecified site; K58.9 Irritable bowel syndrome, unspecified; Z85.46 Personal history of malignant neoplasm of prostate; Z98.49 Cataract extraction status, unspecified eye; Z96.649 Presence of unspecified artificial hip joint; Z98.890 Other specified postprocedural states; Z87.891 Personal history of nicotine dependence
CPT/HCPCS: 12001; 73140; 90471; 90715; 99283

== ENCOUNTER 2023-12-21 09:55 | Outpatient (RCR) | payer MEDICARE, SELFPAY | END 2024-03-29 12:09 | disposition home or self-care (01) | LOC: PT 09:55 | PROVIDERS: PCP Family Medicine; Visit Provider Neurological Surgery | DX: R29.898 Other symptoms and signs involving the musculoskeletal system (principal); R20.0 Anesthesia of skin; Z98.1 Arthrodesis status | CPT/HCPCS: 97110; 97140; 97162 ==

== ENCOUNTER 2024-02-19 09:11 | Outpatient (OUT) | payer MEDICARE, SELFPAY ==
[2024-02-19 12:38] LABS: Prostate Specific Antigen Dx <0.13 ng/mL (<=4.00)
== END 2024-02-19 09:12 | disposition home or self-care (01) ==
PROVIDERS: PCP Family Medicine; Visit Provider Radiology Radiation Oncology
DX: C61 Malignant neoplasm of prostate (principal)
CPT/HCPCS: 36415; 84153

== ENCOUNTER 2024-03-11 08:59 | Outpatient (OUT) | payer MEDICARE, SELFPAY ==
--- OUTSIDE RECORDS SUMMARY | 2024-03-11 09:12 | XMS_ITS | CCD ---
Author Organization [facility] Care Team Providers Care Account Clerk Name Role Phone Winter Villalobos Unavailable MD Uday Wilson Primary Care Provider MD Winter Villalobos Attending Provider [phone] UDAY [employer] Unavailable [...] Physician Unavailable Primary Care Provider Unavailabl e SHENDGE, VITHAL Referring Unavailable SHENDGE, VITHAL Referring Unavailable SHENDGE, VITHAL Referring Unavailable SELF, REFERRED Referring Unavailable SHENDGE, VITHAL Attending Unavailable MELLY MATA Attending Unavailable SHENDGE, JUAN RAMON Attending Unavailable MELLY MATA Attending Unavailable MD Miguelito Peres Primary Care Provider MD Winter Villalobos Attending Provider Unavailable Primary Care Provider UnavailMD Miguelito Avila E Primary Care Provider JS Whitfield Primary Care Provider CAIT CLAYTON Attending Unavailable CAIT CLAYTON Attending Unavailable MEHRAN LEE Attending Unavailable WINTER VILLALOBOS Referring Unavailable CAIT CLAYTON Attending Unavailable ENGELER, G KANU Referring Unavailable [...] Attending Unavailable ENGELER, G KANU Referring Unavailable GERMAN WESTFALL Referring Unavailable ENGELER, G KANU Attending Unavailable [...] Referring Unavailable ENGELER, G KANU Referring Unavailable Miguelito Peres Primary Care Unavailable Winter Villalobos Attending Unavailable Winter Villalobos Admitting Unavailable Winter Villalobos Attending Unavailable Marla Whitfield Primary Care Unavailable Winter Villalobos Admitting Unavailable Roseann, Marla Shafer Attending Unavailable Roseann, Marla Shafer Attending Unavailable WESTFALL, German R Attending Unavailable WESTFALL, German R Attending Unavailable WILSONUDAY Referring Unavailable WESTFALL, German R Attending Unavailable WESTFALL, German R Attending Unavailable WESTFALL, German R Attending Unavailable WESTFALL, German R Attending Unavailable WESTAFLL, German R Attending Unavailable WESTFALL, German R Attending Unavailable WESTFALL, German R Attending Unavailable WESTFALL, German R Attending Unavailable WESTFALL, German R Attending Unavailable WESTFALL, German R Attending Unavailable WESTFALL, German R Admitting Unavailable WESTFALL, German R Attending Unavailable WESTFALL, German R Referring Unavailable WESTFALL, German R Admitting Unavailable WESTFALL, German R Attending Unavailable WESTFALL, German R Attending Unavailable Roseann, Marla Shafer Attending Unavailable Miguelito Peres. Attending Unavailable Allergies Allergy Classification Reported Allergen(s) Allergy Type Date of Onset Reaction(s) Facility (18 sources) celecoxib; Translations: [celecoxib] Drug Allergy 08-26-20 Unknown (qualifier value) [facility] (1 source) Codeine Drug Allergy Unknown [facility] Other (20 sources) Codeine; Translations: [Codeine] Drug Allergy 08-26-20 Unknown (qualifier value), Mental Status Change [facility] (5 sources) sodium pentathol Allergy to substance 08-26-20 Swelling of Lip/Tongue/Throat [facility] (13 sources) Ketoprofen; Translations: [ketoprofen] Drug Allergy 04-14-20 23 Unknown (qualifier value) [facility] (20 sources) oxyCODONE; Translations: [oxycodone] Drug Allergy 05-23-20 22 Lightheadedness (finding), Other: See Comments [facility] (1 source) Acetaminophen / oxyCODONE; Translations: [OXYCODONE-ACETA MINOPHEN] Drug Allergy 05-23-20 [facility] (1 source) celecoxib; Translations: [CeleBREX] Drug Allergy [facility] Repository Medications Current Medications Medication Drug Class(es) Dates Sig (Normalized) Sig (Original) acetaminophen 500 mg oral capsule (12 sources) Start: 03-26-2024 take 500 mg by mouth every six hours Acetaminophen Active 500 MG PO Every 6 hours December 12, 2023 12:00am Start: 03-01-2023 Tylenol Oral S tart Date: 03/01/23 Status: Ordered amoxicillin 500 mg / clavulanate 125 mg oral tablet (20 sources) Penicillin-class Antibacterial Start: 08-28-2023 Amoxicillin-Pot Clavulanate Active 1 TAB PO December 12, 2023 12:00am Start: 02-08-2023 take 1 tablet by peter [...] IN THE MORNING AND AT BEDTIME. bicalutamide 50 mg oral tablet (20 sources) Androgen Receptor Inhibitor Start: End: Bicalutamide Active 50 MG PO December 12, 2023 12:00am Comment on above: Take 50 mg by mouth. calcium carbonate 1500 mg / cholecalciferol 800 unt chewable tablet (3 sources) Vitamin D Start: take 1 tablet by mouth once daily Calcium Carbonate-Vitamin D3 (Caltrate 600 Plus D) 600 mg-20 mcg (800 unit) tablet,chewable Active 1 TAB PO Daily December 12, 2023 12:00am Calcium Carbonate / vitamin D3 (18 sources) calcium carbonate/vitamin D3 (CALTRATE 600 + D ORAL) Take by mouth. 0 Active Comment on above: Take by mouth. ciprofloxacin 500 mg oral tablet (2 sources) Quinolone Antimicrobial Start: End: Cipro 500 mg Tab 500 mg = 1 tab(s), Oral, q12hr, Start 3 days prior to procedure, X 7 day(s), # 14 tab(s), Refills(s) 0, Pharmacy: [id number], 178, cm, 03/01/23 9:33:00 EDT, Height/Length Dosing, 98, kg, 02/14/23 10:27:00 EDT, Weight Dosing Start Date: 03/01/23 Stop Date: 03/08/23 Status: Ordered fluticasone propionate 0.05 mg/actuat metered dose nasal spray (20 sources) Corticosteroid Start: fluticasone (FLONASE) 50 mcg/actuation nasal spray Use in the nose. 0 03/15/2023 Active Comment on above: Use in the nose. Handicap Placard (11 sources) Start: Handicap Placard Handicap Placard, See Instructions, 1 EA, 0, Expires in 5 years Start Date: 12/02/22 Status: Ordered Lactobac 42/Bifid 8/colost/FOS (PROBIOTIC PLUS COLOSTRUM ORAL) (18 sources) Start: 023 Lactobac 42/Bifid 8/colost/FOS (PROBIOTIC PLUS COLOSTRUM ORAL) Take by mouth. 0 03/01/2023 Active Comment on above: Take by mouth. lactobacillus rhamnosus gg [id number] unt oral capsule (3 sources) Start: 024 take 1 capsule by mouth once daily Lactobacillus Rhamnosus Gg (Culturelle) 10 billion cell capsule Active 1 CAP PO Daily December 12, 2023 12:00am 24 hr mirabegron 50 mg extended release oral tablet (1 source) beta3-Adrenergic Agonist Start: 023 take 1 tablet by mouth once daily Myrbetriq 50 mg oral tablet, extended release 50 mg = 1 tab(s), Oral, Daily, # 30 tab(s), Refills(s) 11, Pharmacy: [id number], 178, cm, 03/27/23 9:48:00 EDT, Height/Length Dosing, 100, kg, 03/27/23 9:48:00 EDT, Weight Dosing Start Date: 08/03/23 Status: Ordered Probiotic + Colostrum (9 sources) Start: 023 Probiotic + Colostrum Oral, Daily Start Date: 03/01/23 Status: Ordered solifenacin succinate 10 mg oral tablet (5 sources) Cholinergic Muscarinic Antagonist Start: 023 take 1 tablet by mouth once solifenacin 10 mg tablet Take 10 mg by mouth every afternoon. 0 08/03/2023 Active Start: 08-03-2023 take 1 tablet by peter th once daily Vesicare 5 mg Tab 5 mg = 1 tab(s), Oral, Daily, # 30 tab(s), Refills(s) 11, Pharmacy: [id number], 178, cm, 03/27/23 9:48:00 EDT, Height/Length Dosing, 100, kg, 03/27/23 9:48:00 EDT, Weight Dosing Start Date: 08/03/23 Status: Ordered Comment on above: Take 1 tablet by peter th every afternoon. Tylenol Extra Strength (1 source) Tylenol Extra St rengt Active Completed/Discontinued Medications Medication Drug Class(es) Dates Sig (Normalized) Sig (Original) aspirin 325 mg oral tablet (5 sources) Platelet Aggregation Inhibitor, Nonsteroidal Anti-inflammatory Drug Start: 08-20-2020 End: 12-12-2023 Aspirin (Reza Aspirin) 325 mg Tablet Discontinued 325 MG PO As Directed August 20, 2020 1:00am December 12, 2023 8:57am cyclobenzaprine hydrochloride 10 mg oral tablet (5 sources) Muscle Relaxant Start: 08-28-2020 End: 12-12-2023 take 10 mg by mouth three times daily Cyclobenzaprine Discontinued 10 MG PO Three times daily 50 August 28, 2020 1:00am December 12, 2023 8:57am dicyclomine hydrochloride 20 mg oral tablet (20 sources) Anticholinergic Start: 05-11-2020 End: 12-12-2023 take 20 mg by mouth four times daily Dicyclomine Discontinued 20 MG PO Four times daily August 20, 2020 1:00am December 12, 2023 8:57am Comment on above: Take 20 mg by mouth. meloxicam 15 mg oral tablet (20 sources) Nonsteroidal Anti-inflammatory Drug Start: 08-20-2020 End: 08-28-2020 take 15 mg by mouth once daily Meloxicam Discontinued 15 MG PO Daily August 20, 2020 1:00am August 28, 2020 8:45am Start: 05-26-2020 Meloxicam Acti ve 7.5 MG PO December 12, 2023 12:00am Comment on above: TAKE ONE TABLET BY M OUT TWICE A DAY WITH FOOD NEEDED FOR ARTHRITIS PAIN oxyCODONE hydrochloride 5 mg oral capsule (5 sources) Opioid Agonist Start: 0 End: 4 take 5-10 mg by mouth every six hours Oxycodone Discontinued 5 - 10 MG PO Q6H 60 8 August 28, 2020 December 12, 2023 8:57am Prednisone (5 sources) Start: 0 End: 4 Prednisone Discontinued 1 dose pk PO per package directions August 28, 2020 1:00am December 12, 2023 8:57am take 4 tabs for 3 days then take 3 tabs for 3 days then take 2 tabs for 3 days then take 1 tab for 3 days Start: 08-28-2020 Prednisone Act le 1 dose pk PO per package directions August 28, 2020 1:00am take 4 tabs for 3 days then take 3 tabs for 3 days then take 2 tabs for 3 days then take 1 tab for 3 days Start: 08-28-2020 Prednisone Act le 1 dose pk PO per package directions August 28, 2020 12:00am take 4 tabs for 3 days then take 3 tabs for 3 days then take 2 tabs for 3 days then take 1 tab for 3 days Problems Active Problems Problem Classification Problem Date Documented Da te Episodic/Chronic Abdominal pain (7 sources) Left flank pain; Translations: [Unspecified abdominal pain] 12-12-2023 Episodic Cancer of prostate (20 sources) Malignant neoplasm of prostate; Translations: [Malignant tumor of prostate] Onset: 3 Chronic Coagulation and hemorrhagic disorders (13 sources) Platelet count below reference range; Translations: [Thrombocytopenia, unspecified] Onset: 3 05-08-2023 Chronic Complication of device; implant or graft (20 sources) Infection and inflammatory reaction due to unspecified internal joint prosthesis, subsequent encounter; Translations: [Mechanical loosening of other internal prosthetic joint, initial encounter] Onset: 2 Episodic Comment on above: left hip Esophageal disorders (11 sources) Gastroesophageal reflux disease 12-02-2022 Chronic Genitourinary symptoms and ill-defined conditions (7 sources) Nocturia; Translations: [Nocturia] Onset: 3 Episodic Open wounds of extremities (2 sources) Laceration of finger 12-01-2023 Episodic Osteoarthritis (20 sources) Osteoarthritis of hip; [...] ARTIFICIAL HIP JOINT] Onset: 2 Chronic Other connective tissue disease (3 sources) History of lumbar fusion; Translations: [Arthrodesis status] 12-12-2023 Episodic Other connective tissue disease (4 sources) Arthrodesis status; Translations: [Arthrodesis status] 12-12-2023 Episodic Other connective tissue disease (2 sources) Low back pain; Translations: [Myalgia, other site] 01-01-2024 Episodic Other connective tissue disease (2 sources) Myalgia, other site; Translations: [Lumbago] 01-01-2024 Episodic Other gastrointestinal disorders (11 sources) Irritable bowel syndrome 12-02-2022 Chronic Other nervous system disorders (1 source) Carpal tunnel syndrome, left upper limb; Translations: [Carpal tunnel syndrome] 01-30-2024 Chronic Other non-traumatic joint disorders (9 sources) Hip pain 12-02-2022 Episodic Other nutritional; endocrine; and metabolic disorders (11 sources) Overweight 02-08-2023 Episodic Other nutritional; endocrine; and metabolic disorders (11 sources) Overweight in adulthood with body mass index of 25 or more but less than 30 02-08-2023 Episodic Other screening for suspected conditions (not mental disorders or infectious disease) (1 source) Raised prostate specific antigen; Translations: [Elevated prostate specific antigen [PSA]] Onset: 3 Episodic Other upper respiratory disease (7 sources) Seasonal allergy 03-15-2023 Chronic Otitis media and related conditions (7 sources) Finding of fluid behind tympanic membrane 03-15-2023 Episodic Residual codes; unclassified (3 sources) Family history of cancer; Translations: [Family history of malignant neoplasm of prostate] Onset: 3 Episodic Residual codes; unclassified (9 sources) Family history of prostate cancer 03-01-2023 Episodic Rheumatoid arthritis and related disease (11 sources) 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 Chronic Screening and history of mental health and substance abuse codes (10 sources) H/O: Disorder; Translations: [Personal history of nicotine dependence] Onset: 3 Episodic Spondylosis; intervertebral disc disorders; other back problems (7 sources) Lumbosacral spondylosis without myelopathy; Translations: [Spondylosis without myelopathy or radiculopathy, lumbosacral region] Onset: 1 Resolved: 1 Chronic Spondylosis; intervertebral disc disorders; other back problems (20 sources) Fusion of spine, lumbar region; Translations: [...] Test Name Value Interpretation Reference Range Facility Consultation Noteon 02-28-20 Consultation Note [id number] [facility] Lab Reportson 02-20-2024 Lab Reports [id number] [facility] XR pre/post mri xrayon 02-19 XR pre/post mri xray [facility] Main [facility] [address] [place] [address] MRI Report Signed Patient: Jhonathan Aguilar MR#: [id number] : 1945 Acct:[id number] Age/Sex: 78 / M ADM Date: 02/20/24 Loc: MR Room: Type: [facility] Attending Dr: Winter Villalobos MD Copies to: Winter Villalobos MD Ordering Provider: Winter Villalobos MD Date of Service: 02/20/24 MR/MR cervical spine wo con: M54.12 - Radiculopathy, cervical region ([id number]) XR/XR pre/post mri xray: M54.12 MR cervical spine wo con, XR pre/post mri xray 02/20/2024 8:46 AM SIGNS AND SYMPTOMS: Chronic neck pain radiating down left shoulder PROTOCOL: Lateral and bilateral oblique radiographs of the cervical spine. COMPARISON: None. FINDINGS: Radiographs of the cervical spine: There is moderate to severe disc height loss at C5-C6 with anterior osteophyte formation and operative joint spurring. Facet degenerative changes are present throughout. Facet and uncovertebral joint changes contribute to neural foraminal stenosis bilaterally. MRI cervical spine: The bones of the cervical spine are in anatomic alignment. There is preservation of vertebral body heights. There is severe disc height loss at C5-C6 and C6-C7. There is mild disc height loss at C2- C3 and C3-C4. There is a benign-appearing hemangioma at T1. Subcortical cysts are noted in the left C2 facet. Facet edema is noted on the right at C2-C3. The cord is normal in signal. No epidural or paraspinous fluid collection is appreciated. The visualized paraspinous soft tissues are within normal limits. The prevertebral soft tissues are within normal limits. At C2-C3: Facet and uncovertebral joint degenerative change contributing mild bilateral neural foraminal narrowing with mild spinal canal narrowing. At C3-C4: There is a broad-based disc bulge with facet and uncovertebral degenerative change contributing to moderate severe right and moderate left neural foraminal narrowing. This mild spinal canal narrowing. At C4-C5: There is facet hypertrophy. There is mild bilateral neural foraminal narrowing with mild spinal canal stenosis. At C5-C6: There is a broad-based disc bulge with endplate osteophyte formation. There is uncovertebral joint spurring and facet hypertrophy. There is moderate to severe spinal canal narrowing with moderate right and moderate to severe left neural foraminal stenosis. At C6-C7: There is a circumferential disc bulge with facet and operative joint degenerative change with moderate to severe bilateral neural foraminal narrowing and moderate to severe spinal canal stenosis. At C7-T1: There is a normal disc, central canal, and neural foramen. MR/MR cervical spine wo con IMPRESSION: At C3-C4: There is a broad-based disc bulge with facet and uncovertebral degenerative change contributing to moderate severe right and moderate left neural foraminal narrowing. This mild spinal canal narrowing. At C5-C6: There is a broad-based disc bulge with endplate osteophyte formation. There is uncovertebral joint spurring and facet hypertrophy. There is moderate to severe spinal canal narrowing with moderate right and moderate to severe left neural foraminal stenosis. At C6-C7: There is a circumferential disc bulge with facet and operative joint degenerative change with moderate to severe bilateral neural foraminal narrowing and moderate to severe spinal canal stenosis. No cord compression or cord signal abnormality. Impression dictated by: Jose Green M.D.02/20/2024 3:49 PM Dictation Location: [place] [address] Transcribed By: [facility] 02/20/24 1549 Dictated By: Jose Green II, MD 02/20/24 1527 Signed By: 02/20/24 1549 Normal [facility] Ambulatory Visit Summaryon 0 02-19-2024 Ambulatory Visit Summary JHONATHAN AGUILAR :1945 Visit Date:02/19/2024 Ambulatory Visit Instructions Your Diagnosis Annual visit for general adult medical examination with abnormal findings Inflammatory polyarthropathy Prostate cancer Obesity due to excess calories Former smoker Your Care Team Attending Physician - Ja MCGREGOR, Miguelito Graham Primary Care Physician - Marla Fortune This Is Your Medications List Misc Prescription (Handicap Placard) acetaminophen (Tylenol) amoxicillin-clavulanate (amoxicillin-clavulanate 500 mg-125 mg Tab) bicalutamide (bicalutamide 50 mg Tab) calcium-vitamin D (Caltrate 600 + D) dicyclomine (dicyclomine 20 mg Tab) fluticasone nasal (Flonase 0.05 mg/inh Cades) lactobacillus rhamnosus GG (Greetz) meloxicam (meloxicam 7.5 mg Tab) Procedures Performed Brachytherapy (07/27/2023), Transrectal needle biopsy of prostate (03/07/2023), Biopsy (02/16/2023), Cataract, Cyst, Hip arthroplasty, Surgery. Discharge Vitals Heart Rate (Peripheral) 69 Respiratory Rate 18 Blood Pressure 162/72 Height 178 cm Height 70 in Weight 99.4 kg Weight 218.68 lb BMI 31.37 What to do next Scheduled Follow-Up Appointments Monday 8:45 AM EDT With: MALOU MCGREGOR, German Colmenares Where: [facility] [place] [id number] \.br\ Medications\.b r\ What How Much When Why Instructions\. br\ Unchanged acetaminophen (Tylenol) By Mouth\.br\ Unchanged amoxicillin-cl avulanate (amoxicillin-c lavulanate 500 mg-125 mg Tab)\.br\ Unchanged bicalutamide (bicalutamide 50 mg Tab) 1 Tablets By Mouth Every 24 hours Duration: 30 Days\.br\ Unchanged calcium-vitami n D (Caltrate 600 + D) 1 Tablets By Mouth 2 times a day\.br\ Unchanged dicyclomine (dicyclomine 20 mg Tab) 1 Tablets By Mouth 4 times a day as needed for Other (see comment) for IBS \.br\ Unchanged fluticasone nasal (Flonase 0.05 mg/ inh Cades) 2 Sprays Nasal Inhalation Every day Fluid level behind tympanic membrane of both ears Seasonal allergies BMI 29.0-29.9,adul t Non-smoker each nostril \.br\ Unchanged lactobacillus rhamnosus GG (Greetz) See instructions Daily \.br\ Unchanged meloxicam (meloxicam 7.5 mg Tab) 1 Tablets By Mouth 2 times a day as needed for Arthritis take with food \.br\ Unchanged Misc Prescription (Handicap Placard) See instructions Expires in 5 years \.br\ Allergies\.br\ CeleBREX (Unknown)\.br\ Orudis (Unknown)\.br\ codeine (Unknown)\.br\ oxyCODONE (Lightheaded)\ .br\ Problems\.br\ Ongoing - Any problem that you are currently receiving treatment for.\.br\ BMI 31.0-31.9,adul t\.br\ Family history of prostate cancer in father\.br\ Fluid level behind tympanic membrane of both ears\.br\ Former smoker\.br\ Inflammatory polyarthropath y\.br\ Laceration of fingers without complication\. br\ Nocturia\.br\ Prostate cancer\.br\ Seasonal allergies\.br\ Unilateral primary osteoarthritis , left hip\.br\ Historical - Any problem that you are no longer receiving treatment for.\.br\ Arthritis\.br\ Arthritis\.br\ BMI 28.0-28.9,adul t\.br\ GERD - Gastro-esophag eal reflux disease\.br\ IBS - Irritable bowel syndrome\.br\ Over weight\.br\ Sciatica\.br\ Patient Survey\.br\ You may receive a survey via text or e-mail asking about your office visit. Please share your experience with us by completing your survey. We appreciate your feedback and thank you for choosing us for your care.\.br\ Education Materials\.br\ Exercising to Lose Weight\.br\ Getting regular exercise is important for everyone. It is especially important if you are overweight. Being overweight increases your risk of heart disease, stroke, diabetes, high blood pressure, and several types of cancer. Exercising, and reducing the calories you consume, can help you lose weight and improve fitness and health.\.br\ Exercise can be moderate or vigorous intensity. To lose weight, most people need to do a certain amount of moderate or vigorous-inten sity exercise each week.\.br\ How can exercise affect me?\.br\ You lose weight when you exercise enough to burn more calories than you eat. Exercise also reduces body fat and builds muscle. The more muscle you have, the more calories you burn. Exercise also:\.br\ ? \.br\ Improves mood.\.br\ ? \.br\ Reduces stress and tension.\.br\ ? \.br\ Improves your overall fitness, flexibility, and endurance.\.br \ ? \.br\ Increases bone strength.\.br\ Moderate-inten sity exercise\.br\ \.br\ Moderate-inten sity exercise is any activity that gets you moving enough to burn at least three times more energy (calories) than if you were sitting.\.br\ Examples of moderate exercise include:\.br\ ? \.br\ Walking a mile in 15 minutes.\.br\ ? \.br\ Doing light yard work.\.br\ ? \.br\ Biking at an easy pace.\.br\ Most people should get at least 150 minutes of moderate-inten sity exercise a week to maintain their body weight.\.br\ Vigorous-inten sity exercise\.br\ Vigorous-inten sity exercise is any activity that gets you moving enough to burn at least six times more calories than if you were sitting. When you exercise at this intensity, you should be working hard enough that you are not able to carry on a conversation.\ .br\ Examples of vigorous exercise include:\.br\ ? \.br\ Running.\.br\ ? \.br\ Playing a team sport, such as football, basketball, and soccer.\.br\ ? \.br\ Jumping rope.\.br\ Most people should get at least 75 minutes a week of vigorous exercise to maintain their body weight.\.br\ What actions can I take to lose weight?\.br\ The amount of exercise you need to lose weight depends on:\.br\ ? \.br\ Your age.\.br\ ? \.br\ The type of exercise.\.br\ ? \.br\ Any health conditions you have.\.br\ ? \.br\ Your overall physical ability.\.br\ Talk to your health care provider about how much exercise you need and what types of activities are safe for you.\.br\ Nutrition\.br\ \.br\ ? \.br\ Make changes to your diet as told by your health care provider or diet and nutrition counselor (dietitian). This may include:\.br\ ? \.br\ Eating fewer calories.\.br\ ? \.br\ Eating more protein.\.br\ ? \.br\ Eating less unhealthy fats.\.br\ ? \.br\ Eating a diet that includes fresh fruits and vegetables, whole grains, low-fat dairy products, and lean protein.\.br\ ? \.br\ Avoiding foods with added fat, salt, and sugar.\.br\ ? \.br\ Drink plenty of water while you exercise to prevent dehydration or heat stroke.\.br\ Activity\.br\ ? \.br\ Choose an activity that you enjoy and set realistic goals. Your health care provider can help you make an exercise plan that works for you.\.br\ ? \.br\ Exercise at a moderate or vigorous intensity most days of the week.\.br\ ? \.br\ The intensity of exercise may vary from person to person. You can tell how intense a workout is for you by paying attention to your breathing and heartbeat. Most people will notice their breathing and heartbeat get faster with more intense exercise.\.br\ ? \.br\ Do resistance training twice each week, such as:\.br\ ? \.br\ Push-ups.\.br\ ? \.br\ Sit-ups.\.br\ ? \.br\ Lifting weights.\.br\ ? \.br\ Using resistance bands.\.br\ ? \.br\ Getting short amounts of exercise can be just as helpful as long, structured periods of exercise. If you have trouble finding time to exercise, try doing these things as part of your daily routine:\.br\ ? \.br\ Get up, stretch, and walk around every 30 minutes throughout the day.\.br\ ? \.br\ Go for a walk during your lunch break.\.br\ ? \.br\ Park your car farther away from your destination.\. br\ ? \.br\ If you take public transportation , get off one stop early and walk the rest of the way.\.br\ ? \.br\ Make phone calls while standing up and walking around.\.br\ ? \.br\ Take the stairs instead of elevators or escalators.\.b r\ ? \.br\ Wear comfortable clothes and shoes with good support.\.br\ ? \.br\ Do not exercise so much that you hurt yourself, feel dizzy, or get very short of breath.\.br\ Where to find more information\.b r\ ? \.br\ U.S. Department of Health and Human Services: www.hhs.gov\.b r\ ? \.br\ Centers for Disease Control and Prevention: www.cdc.gov\.b r\ Contact a health care provider:\.br\ ? \.br\ Before starting a new exercise program.\.br\ ? \.br\ If you have questions or concerns about your weight.\.br\ ? \.br\ If you have a medical problem that keeps you from exercising.\.b r\ Get help right away if:\.br\ ? \.br\ You have any of the following while exercising:\.b r\ ? \.br\ Injury.\.br\ ? \.br\ Dizziness.\.br \ ? \.br\ Difficulty breathing or shortness of [facility] Family Medicine Office/Clini c Noteon 02-19-2024 Family Medicine Office/Clinic Note Chief Complaint Medicare Wellness Visit Review of Systems PHQ Score Initial Depression Screen Score: 0 SCORE Physical Exam Vitals & Measurements HR: 69(Peripheral) RR: 18 BP: 162/72 SpO2: 96% HT: 178 cm HT: 70 in WT: 99.4 kg WT: 218.68 lb BMI: 31.37 Assessment/Plan 1. Annual visit for general adult medical examination with abnormal findings (Z00.01: Encounter for general adult medical examination with abnormal findings) Discussed all the current AHRQ USPSTF?s recommendations for preventative services and all current CDC recommended immunizations, relevant risk recommendations and the following patient brochures were given. Reviewed Medicare Prevention Services checklist. CDC-Falls Prevention and home safety screening reviewed. Patient denies any falls in last 12 months, voices no worry about falling. Exhibits no problems with sitting, standing or ambulation. Patient aware with keeping walk way area free of clutter to prevent tripping and/or falling. [place] Advance Directives reviewed. Documents remain at home, encouraged to bring in for scanning into chart. Patient denies any problems with ADL?s and Instrumental ADL?s. Cognitive screening completed with memory and clock face drawing. No deficits noted. Immunization record reviewed, discussed Shingrix vaccine with educational handout and availability. COVID vaccines have been administered, with 1 Booster received. Allergies and medications reviewed and up to date. No concerns with taking medication as prescribed. Reviewed OTC medications, medication list up to date. Blood tests were reviewed: Labs UTD, states he is going to [facility] to get labs drawn today, not sure what doctor ordered them or what exactly they are for, states probably to check his prostate, states he will ask them to fax results to PCP. No concerns with bowel/ bladder. Colonoscopy: Aged out. Reviewed pain symptoms : chronic hip pain 2 on 1-10 scale, takes a hot shower in the evenings, applies Icee-Hot and Voltaren gel, states effective. Sometimes takes Tylenol for pain if needed. Reviewed all outside providers that patient follows. Last visit summary notes available in chart and/or have been requested. Patient declines any signs or symptoms of depression at this time. 8 minutes spent with screening and documentation. PHQ2 screening score 0. Patient denies alcohol use, denies concerns. 5 minutes spent with screening and documentation. Audit score 0. Follow up scheduled with PCP, not scheduled, patient declines to schedule at this time. AWV has been scheduled, 01/21/25. Abnormal findings with elevated BP, serial assessment completed and documented. BP #1 162/72 then #2 152/62. Patient denies Chest pain/pressure, SOB, Headache, Visual changes, numbness/tingling down left arm. Patient declines to schedule appt. with provider to follow up, states his BP is usually around 130's systolic. Gave patient HTN stoplight, encouraged to check BP at home and make an appointment if BP is running in yellow/red, if having sx's listed above go to the ER patient voices understanding. Medicare provides yearly screening for alcohol and depression concerns. This is completed during our Medicare wellness visit for those who do not have a current diagnosis of depression or concerns with alcohol use. I spent a total of 13 minutes on this date of service which included preparing to see the patient, face to face patient care, completing clinical documentation, obtaining and/or reviewing separately obtained history, counseling and educating the patient with handouts. Explanations were provided with reviewing questionnaires. AUDIT risk assessment screening completed, risk score (0) with patient denying concerns with use. Completed PHQ-2 risk assessment for depression with risk score (0), negative findings. Patient has been reminded to notify the provider if there would be a change or concerns with symptoms with fear, unable to sleep, worrying too much or feeling down and/or sad with lost of interest with daily activities. Will continue to monitor with screening yearly during Medicare wellness visits. 2. Inflammatory polyarthropathy (M06.4: Inflammatory polyarthropathy) Patient states each evening he uses Icee-Hot after he takes a shower and then uses Voltaren gel on his hip. States these are effective for pain. States if it's not effective for pain, if he has been extra physically active that day or the weather is bad he will take a Tylenol and this is effective. Sees Dr. Villalobos, Neurosurgeon, yearly to follow up on hx of back surgery and other joint pain symptoms he might be having. Follow up with PCP as needed. 3. Prostate cancer (C61: Malignant neoplasm of prostate) Patient follows with Dr. Westfall, Urology, every [address] Ruiz, Radiology Oncology, every 6 months. Next appointment with Dr. Westfall 07/01/[address] Ruiz this Monday. Taking Bicalutamide daily as directed. States he feels he is doing much better than he was a year ago. Labs and medicatio (more content not included)... [facility] Comment on above: Result Comment: Elec tronically Signed By: Marla Fortune\.br\Date and Time Signed: 02/19/24 09:47 EDT\.br\Electronically Co-Signed By: Marita Flores LPN\.br\Date and Time Co-Signed: 02/19/24 09:09 EDT Patient Educationon 02-19-20 Patient Education Nutrition BMI for Adults What is BMI? Body [...] numbers. This can be done either in [place] ([place] or metric measurements. Note that charts and online BMI calculators are available to help you find your BMI quickly and easily without having to do these calculations yourself. To calculate your BMI in [place] ([place] measurements: 1. Measure your weight in [...] for Disease Control and Prevention: www.cdc.gov ? [place] Heart Association: www.heart.org ? National Heart, Lung, and Blood [place]: www.nhlbi.nih.gov Summary ? Body mass index (BMI) is a number that is calculated from a person's weight and height. ? BMI may help estimate how much of a person's weight is composed of fat. BMI can help identify those who may be at higher risk for certain medical problems. ? BMI can be measured using [place] measurements or metric measurements. ? BMI charts are used to identify whether you are underweight, normal weight, overweight, or obese. This information is not intended to replace advice given to you by your health care provider. Make sure you discuss any questions you have with your health care provider. Document Revised: 05/27/2020 Document Reviewed: 04/03/2020 [employer] Patient Education ? 2022 [employer] Healthy Eating Following a healthy eating pattern may help you to achieve and maintain a healthy body weight, reduce the risk of chronic disease, and live a long and productive life. It is important to follow a healthy eating pattern at an appropriate calorie level for your body. Your nutritional needs should be met primarily through food by choosing a variety of nutrient-rich foods. What are tips for following this plan? Reading food labels ? Read labels and choose the following: ? Reduced or low sodium. ? Juices with 100% fruit juice. ? Foods with low saturated fats and high polyunsaturated and monounsaturated fats. ? Foods with whole grains, such as whole wheat, cracked w (more content not included)... [facility] Screenson 02-19-2024 Screens [id number] [facility] CNPNon 02-16-2024 [facility] JHONATHAN AGUILAR ([id number]) 1945 M Date Time Provider Department 02/16/24 Jennifer RUIZ During your visit today, we recorded the following information about you: Angela Norris MA 02/16/2024 1:39 PM Signed PSA order faxed to [facility]. Angela Norris MA Allergies As of Date: 02/16/2024 Noted Allergy Reaction CODEINE 04/05/2023 1 - Mental Status Change OXYCODONE 04/05/2023 14 - Other: See Comments Comments: Dizziness, syncope Date Reviewed: 09/07/2023 Reviewed by: Dara Russell LPN - Fully Assessed Reason for Visit: Orders [681] Prescriptions as of 02/16/2024 - solifenacin 10 mg tablet Take 10 [...] by mouth. Problem List As Of Date 02/16/2024 Noted Resolved Platelets decreased (HCC) [D69.6] 05/08/2023 Encounter Status:Closed by ANGELA NORRIS on 02/16/24 [facility] 02-15-2024 [facility] Telephone (RADTSA) -- JHONATHAN AGUILAR ([id number]) 1945 M Date Time Provider Department 02/15/24 Jennifer RUIZ During your visit today, we recorded the following information about you: Dara Russell LPN 02/15/2024 3:59 PM Signed Please sign pended PSA order for upcoming follow up. Please fax PSA order to [facility] per patient request. Dara Russell RN Allergies As of Date: 02/15/2024 Noted Allergy Reaction CODEINE 04/05/2023 1 - Mental Status Change OXYCODONE 04/05/2023 14 - Other: See Comments Comments: Dizziness, syncope Date Reviewed: 09/07/2023 Reviewed by: Dara Russell LPN - Fully Assessed Reason for Visit: Orders [681] Primary Visit Diagnosis:Malignant neoplasm of prostate (HCC) [C61] Order(s):PROSTATE-SPECIFIC ANTIGEN DIAGNOSTIC [SQPSA] Order #: [id number] FUTURE Prescriptions as of 02/16/2024 - solifenacin 10 mg tablet Take 10 [...] by mouth. Problem List As Of Date 02/15/2024 Noted Resolved Platelets decreased (HCC) [D69.6] 05/08/2023 Encounter Status:Closed by Jennifer RUIZ on 02/16/24 Normal [facility] Ambulatory Visit Summaryon 0 12-11-2023 Ambulatory Visit Summary JHONATHAN AGUILAR :1945 Visit Date:12/11/2023 Ambulatory Visit Instructions Your Diagnosis Prostate cancer Nocturia Your Care Team Attending Physician - MALOU MCGREGOR, German Colmenares Primary Care Physician - Marla Fortune This Is Your Medications List bicalutamide (bicalutamide 50 mg Tab) Contact prescribing physician if questions or concerns Misc Prescription (Handicap Placard) acetaminophen (Tylenol) amoxicillin-clavulanate (amoxicillin-clavulanate 500 mg-125 mg Tab) bifidobacterium-lactobacil jb (Probiotic + Colostrum) dicyclomine (dicyclomine 20 mg Tab) fluticasone nasal (Flonase 0.05 mg/inh Cades) meloxicam (meloxicam 7.5 mg Tab) Procedures Performed Brachytherapy (07/27/2023), Transrectal needle biopsy of prostate (03/07/2023), Biopsy (02/16/2023), Cataract, Cyst, Hip arthroplasty, Surgery. Discharge Vitals Temperature (Temporal Artery) 36.9 ?C Heart Rate (Peripheral) 68 Respiratory Rate 16 Blood Pressure 128/63 Height 178 cm Height 70 in Weight 98.4 kg Weight 216.48 lb BMI 31.06 What to do next Scheduled Follow-Up Appointments Monday 8:00 AM EDT With: Where: [facility] Normal [address] [place] [address] [place] [address]- \.br\ You Need to Schedule the Following Appointments\. br\ Follow Up with MALOU MCGREGOR, German Colmenares, URL When: \.br\ Where:\.br\ [address]\.br\ [place] [address]-\.br\ Medications\.b r\ What How Much When Why [...] Unchanged fluticasone nasal (Flonase 0.05 mg/ inh Cades) 2 Sprays Nasal Inhalation Every day Fluid [...] prescribing physician if questions or concerns \.br\ Allergies\.br\ CeleBREX (Unknown)\.br\ Orudis (Unknown)\.br\ codeine (Unknown)\.br\ oxyCODONE (Lightheaded)\ .br\ Problems\.br\ Ongoing - Any problem that you are currently receiving treatment for.\.br\ BMI 28.0-28.9,adul t\.br\ Family history of prostate cancer in father\.br\ Fluid level behind tympanic membrane of both ears\.br\ Former smoker\.br\ Inflammatory polyarthropath y\.br\ Laceration of fingers without complication\. br\ Nocturia\.br\ Over weight\.br\ Prostate cancer\.br\ Seasonal allergies\.br\ Unilateral [...] very different than normal prostate cells (poorly differentiated ).\.br\ How is this treated?\.br\ Treatment for this condition depends on several factors, including the stage of the cancer, your age, personal preferences, and your overall health. Talk with your health care provider about treatment options that are recommended for you. Common treatments include:\.br\ ? \.br\ Observation for early stage prostate cancer (active surveillance). This involves having exams, blood tests, and in some cases, more biopsies. For some men, this is the only treatment needed.\.br\ ? \.br\ Surgery. Types of surgeries include:\.br\ ? \.br\ Open surgery (radical prostatectomy) . In this surgery, a larger incision is made to remove the prostate.\.br\ ? \.br\ A laparoscopic radical prostatectomy. This is a surgery to remove the prostate and lymph nodes through several small incisions. It is often referred to as a minimally invasive surgery.\.br\ ? \.br\ A robotic radical prostatectomy. This is [facility] CHEMISTRYOrdered By: SYSTEM SYSTEM on 12-11-2023 Prostate specific Ag [Mass/Vol] ng/mL Low 0.1 - 3.5 ng/mL [facility] Comment on above: Interpretive Data: T he concentration of PSA determined by different manufacturers can vary due to differences in assay methods and reagent specificity. Values obtained from different assay methods cannot be used interchangeably. The methodology used for this result was chemiluminescence using [employer] Access Hy[employer] PSA reagent. PSA Totalon 12-11-2023 Prostate specific Ag [Mass/Vol] ng/mL Low 0.1-3.5 [facility] Comment on above: Result Comment: The concentration of PSA determined by different manufacturers can vary due to differences in assay methods and reagent specificity. Values obtained from different assay methods cannot be used interchangeably. The methodology used for this result was chemiluminescence using [employer] Cherise's Access Hybritech PSA reagent. Performed By: #### 1 [id number] ####[facility] [id number] [place] [address] Patient Educationon 12-11-19 Patient Education Oncology Prostate Cancer The prostate [...] likelihood that the cancer will spread. ? Foster 6 or lower: This indicates that the [...] be (more content not included)... Normal [facility] Urology Office/Clinic Noteon 12-11-2023 Urology Office/Clinic Note Chief Complaint prostate cancer HPI Staff 3 month f/u with PSA. Dx: prostate cancer (Brachytherapy 07/27/23) and nocturia. Bicalutamide 50mg QD PSA??? Will draw in office today. Dysuria: no Incomplete bladder emptying: no Hematuria: no Frequency: every 2-3 hours Urgency: seems to be getting a little better Nocturia: 2x Stream: no straining or intermittency Leaking: no Post void dripping: no Wearing pads/ Depends: no Urge incontinence: no Stress incontinence: no Incontinence without Sensory Awareness: no Abdominal pain: no Flank pain: no Sexual complaints: no History of Present Illness Tests reviewed: none. I have reviewed the previous health record [...] HPI. Physical Exam Vitals & Measurements T: 36.9 ?C(Temporal Artery) HR: 68(Peripheral) RR: 16 BP: 128/63 HT: 70 in HT: 178 cm WT: 98.4 kg WT: 216.48 lb BMI: 31.06 General Appearance: alert, no distress, well nourished, well developed male. Assessment/Plan 1. Prostate cancer (C61: Malignant neoplasm of prostate) PSA: 09/25/14 - 1.11 02/10/23 - 26.2 08/24/23 - 0.05 JEFERSON 03/01/23 - Abnormal prostate, estimated weight 40 gms, yes hard nodule observed. rock hard prostate L >>R. TRUS/bx 03/07/23 Path reveals Ev 8 (4+4) x 4 cores, highest % of core involvement 85%. Foster 7 (4+3) x 5 cores, highest % of core involvement 66%. SADA x 3 cores. All cores taken were abnormal. CT AP w/wo con 03/24/23 - negative for metastatic disease in abd/pelvis. NM Bone scan 03/24/23 - negative for metastatic disease to the bones. Brachytherapy 07/27/23. Started on Casodex 50mg qd therapy in March. Continues medication management. Last seen by Dr. Ruiz 08/09/23. Has follow up scheduled. Last Lupron administered 09/15/23. Pt inquired if weight gain is a side effect of Lupron. Explained to pt it is possible. Pt does voice he has gained weight. Pt was to have PSA drawn prior to appointment to see if further Lupron treatment was indicated. Pt did not have it drawn. PSA drawn IO today. Explained to pt that we will call him with PSA results, and we will call him if Lupron needs given. Otherwise, follow up in 6 months with PSA. 2. Nocturia (R35.1: Nocturia) PVR (cc): 08/03/23 - 110 09/15/23 - Pt will try to provide UA sample prior to leaving appointment. Nocturia 2x per night. Reports urgency has improved. Myrbetriq was previously cost prohibitive. D/c VESIcare at last visit due to constipation. Again discussed radiation changes. Will hold off on further medication management given stability of urination. -Behavioral and dietary modifications Follow-up With When Contact Information MALOU MCGREGOR, German Colmenares, URL [address] [place] [address]- Additional Instructions: 6 mos w/ PSA pending current level Patient Education Prostate Cancer I, Juany Mckeon, personally scribed for Dr. Westfall on 12/11/2023 09:42:54. . Documentation recorded by the scribJuany stoll, accurately reflects the services(s) I performed and decisions made by me. Authenticated by Dr. Westfall on 12/11/2023 09:44:45. Problem List/Past Medical History Ongoing BMI 28.0-28.9,adult Family history of prostate cancer in father Fluid level behind tympanic membrane of both ears Former smoker Inflammatory polyarthropathy Laceration of fingers without complication Nocturia Over weight Prostate cancer Seasonal allergies Unilateral primary osteoarthritis, left hip Historical Arthritis Arthritis GERD - Gastro-esophageal reflux disease IBS - Irritable bowel syndrome Sciatica Procedure/Surgical History Brachytherapy (07/27/2023), Transrectal needle biopsy of prostate (03/07/2023), Biopsy (02/16/2023), Cataract, Cyst, Hip arthroplasty, Surgery. Medications amoxicillin-clavulanate 500 mg-125 mg Tab bicalutamide 50 mg Tab, 50 mg= 1 tab(s), Oral, q24hr, 11 refills dicyclomine 20 mg Tab, 20 mg= 1 tab(s), Oral, QID, PRN, 3 refills Flonase 0.05 mg/inh Cades, 2 spray(s), Nasal, Daily Handicap Placard, See Instructions meloxicam 7.5 mg Tab, 7.5 mg= 1 tab( (more content not included)... [facility] Comment on above: Result Comment: Elec tronically Signed By: German WESTFALL MD\.br\Date and Time Signed: 12/11/23 09:44 EDT\.br\Electronically Co-Signed By: Juany Mckeon.br\Date and Time Co-Signed: 12/11/23 09:43 EDT XR lumbar spine AP/LAT/FLX/E XTon 12-08-2023 XR lumbar spine AP/LAT/FLX/EXT [facility] [place] [address] XRay Report Signed Patient: Jhonathan Aguilar MR#: [id number] : 1945 Acct:[id number] Age/Sex: 78 / M ADM Date: 12/08/23 Loc: XD Room: Type: [facility] CLI Attending Dr: Winter Villalobos MD Copies to: Winter Villalobos MD Ordering Provider: Winter Villalobos MD Date of Service: 12/08/23 XR/XR lumbar spine AP/LAT/FLX/EXT: M47.817 - Spondylosis without myelopathy or radiculopathy... AP with lateral neutral, flexion extension views Lumbar Spine HISTORY: Follow-up assessment for lumbar surgery done in 2019. COMPARISON: 08/23/22 POSTSURGICAL CHANGES: L1 L5 fusion changes. No no hardware failure. BONY ALIGNMENT: Stable alignment HYPERMOBILITY:No hypermobility LISTHESIS:Similar degenerative listhesis FRACTURE: None DEGENERATIVE CHANGES: Unremarkable SOFT TISSUES: Unremarkable BONY MINERALIZATION:Adequate XR/XR lumbar spine AP/LAT/FLX/EXT IMPRESSION: No hardware failure. No hypermobility. Stable degenerative and postsurgical changes. Impression dictated by: Helder Foster M.D.12/08/2023 2:15 PM Dictation Location: [place] [address] Transcribed By: [facility] 12/08/23 1415 Dictated By: Helder Foster DO 12/08/23 1413 Signed By: 12/08/23 1415 Normal [facility] Ambulatory Visit Summaryon 0 12-01-2023 Ambulatory Visit Summary JHONATHAN AGUILAR Soni :1945 Visit Date:12/01/2023 Ambulatory Visit Instructions Your Diagnosis BMI 31.0-31.9,adult Your Care Team Attending Physician - Marla Fortune Primary Care Physician - Marla Fortune This Is Your Medications List Misc Prescription (Handicap Placard) acetaminophen (Tylenol) amoxicillin-clavulanate (amoxicillin-clavulanate 500 mg-125 mg Tab) bicalutamide (bicalutamide 50 mg Tab) bifidobacterium-lactobacil jb (Probiotic + Colostrum) dicyclomine (dicyclomine 20 mg Tab) fluticasone nasal (Flonase 0.05 mg/inh Cades) meloxicam (meloxicam 7.5 mg Tab) Procedures Performed Brachytherapy (07/27/2023), Transrectal needle biopsy of prostate (03/07/2023), Biopsy (02/16/2023), Cataract, Cyst, Hip arthroplasty, Surgery. Discharge Vitals Heart Rate (Peripheral) 62 Respiratory Rate 18 Blood Pressure 128/74 Height 178.0 cm Height 70 in Weight 97.9 kg Weight 215.38 lb BMI 30.9 What to do next Scheduled Follow-Up Appointments Monday 8:45 AM EDT With: MALOU MCGREGOR, German Colmenares Where: [facility] [id number]- \.br\ Medications\.b r\ What How Much When Why Instructions\. br\ Unchanged acetaminophen (Tylenol) By Mouth\.br\ Unchanged amoxicillin-cl avulanate (amoxicillin-c lavulanate 500 mg-125 mg Tab)\.br\ Unchanged bicalutamide (bicalutamide 50 mg Tab) 1 Tablets By Mouth Every 24 hours Duration: 30 Days\.br\ Unchanged bifidobacteriu m-lactobacillu s (Probiotic + Colostrum) By Mouth Every day\.br\ Unchanged dicyclomine (dicyclomine 20 mg Tab) 1 Tablets By Mouth 4 times a day as needed for Other (see comment) for IBS \.br\ Unchanged fluticasone nasal (Flonase 0.05 mg/ inh Cades) 2 Sprays Nasal Inhalation Every day Fluid level behind tympanic membrane of both ears Seasonal allergies BMI 29.0-29.9,adul t Non-smoker each nostril \.br\ Unchanged meloxicam (meloxicam 7.5 mg Tab) 1 Tablets By Mouth 2 times a day as needed for Arthritis take with food \.br\ Unchanged Misc Prescription (Handicap Placard) See instructions Expires in 5 years \.br\ Allergies\.br\ CeleBREX (Unknown)\.br\ Orudis (Unknown)\.br\ codeine (Unknown)\.br\ oxyCODONE (Lightheaded)\ .br\ Problems\.br\ Ongoing - Any problem that you are currently receiving treatment for.\.br\ BMI 28.0-28.9,adul t\.br\ Family history of prostate cancer in father\.br\ Fluid level behind tympanic membrane of both ears\.br\ Former smoker\.br\ Inflammatory polyarthropath y\.br\ Nocturia\.br\ Over weight\.br\ Prostate cancer\.br\ Seasonal allergies\.br\ Unilateral [...] you for choosing us for your care.\.br\ \.br\ [facility] Family Medicine Office/Clini c Abel 12-01-2023 Family Medicine Office/Clinic Note HPI Staff Jhonathan is a 78 year old male presenting for ER follow up ER followup: Hospital: [facility] Visit date: 11/21/23 Symptoms the patient presented with: open wound, pt had sutures to left hand middle finger pt here for suture removal need refill on Dicyclomine History of Present Illness pt presents today for suture removal Review of Systems PHQ Score Initial Depression Screen Score: 0 SCORE Physical Exam Vitals & Measurements HR: 62(Peripheral) RR: 18 BP: 128/74 SpO2: 99% HT: 70 in HT: 178.0 cm WT: 97.9 kg WT: 215.38 lb BMI: 30.9 General: alert, no acute distress ENMT: oral mucosa moist, no pharyngeal erythema or exudate Cardiovascular: regular rate and rhythm, normal peripheral perfusion Respiratory: Lungs CTA, respirations non labored Extremities: no deformity, no trauma Neurological: oriented x 4, LOC appropriate for age, CN II-XII intact, motor strength equal & normal bilaterally, speech normal left middle finger laceration healing well Assessment/Plan 1. Laceration of fingers without complication (S61.219A: Laceration without foreign body of unspecified finger without damage to nail, initial encounter) laceration of left middle finger healing well. 4 sutures removed without difficulty. area cleansed with peroxide. pt to keep it open to air unless at work. all questions answered. RTC as needed 2. BMI 31.0-31.9,adult (Z68.31: Body mass index [BMI] 31.0-31.9, adult) BMI education complete Orders: dicyclomine, 20 mg = 1 tab(s), Oral, QID, PRN Other (see comment), for IBS, # 120 tab(s), Refills(s) 3, Pharmacy: [facility], 178, cm, 12/01/23 10:40:00 EDT, Height/Length Dosing, 97.9, kg, 12/01/23 10:40:00 EDT, Weight Dosing dicyclomine, 20 mg = 1 tab(s), Oral, QID, PRN Other (see comment), for IBS, # 120 tab(s), Refills(s) 3, Pharmacy: [facility] Follow-up No qualifying data available Problem List/Past Medical History Ongoing BMI 28.0-28.9,adult Family history of prostate cancer in father Fluid level behind tympanic membrane of both ears Former smoker Inflammatory polyarthropathy Laceration of fingers without complication Nocturia Over weight Prostate cancer Seasonal allergies Unilateral primary osteoarthritis, left hip Historical Arthritis Arthritis GERD - Gastro-esophageal reflux disease IBS - Irritable bowel syndrome Sciatica Procedure/Surgical History Brachytherapy (07/27/2023), Transrectal needle biopsy of prostate (03/07/2023), Biopsy (02/16/2023), Cataract, Cyst, Hip arthroplasty, Surgery. Medications amoxicillin-clavulanate 500 mg-125 mg Tab bicalutamide 50 mg Tab, 50 mg= 1 tab(s), Oral, q24hr, 11 refills dicyclomine 20 mg Tab, 20 mg= 1 tab(s), Oral, QID, PRN, 3 refills Flonase 0.05 mg/inh Cades, 2 spray(s), Nasal, Daily Handicap Placard, See [...] more than 30 days ago Tobacco Use:. Never Smokeless Tobacco Use:. Cigarettes, Cigars, Household tobacco concerns: No., 12/01/2023 Family History Heart disease: Mother and Father. Hypertension: Mother. Primary malignant neoplasm of colon: Father. Primary malignant neoplasm of female breast: Mother. Immunizations Vaccine Date Status Comments influenza virus vaccine, inactivated 07/21/2023 Recorded influenza virus vaccine, inactivated 07/26/2022 Recorded SARS-CoV-2 (COVID-19) mRNA BNT-162b2 vax 07/30/2021 Recorded 2022-12-02: TPV70 SARS-CoV-2 (COVID-19) mRNA BNT-162b2 vax 11/10/2020 Recorded 2022-12-02: TPV70 SARS-CoV-2 (COVID-19) mRNA BNT-162b2 vax 10/20/2020 Recorded 2022-12-02: TPV70 zoster vaccine live 05/15/2020 Recorded zoster vaccine live 11/13/2019 Recorded influenza virus vaccine, inactivated 11/06/2019 Recorded pneumococcal 23-valent vaccine 11/21/2018 Recorded influenza virus vaccine, inactivated 08/20/2018 Recorded pneumococcal 13-valent vaccine 06/20/2017 Recorded influenza virus vaccine, inactivated 07/13/2016 Recorded influenza virus vaccine, inactivated 08/08/2014 Recorded influenza virus vaccine, inactivated 08/07/2013 Recorded Normal [facility] Comment on above: Result Comment: Elec tronically Signed By: Marla Fortune\.br\Date and Time Signed: 12/01/23 12:29 EDT RAD - MISCon 11-22-2023 RAD - MISC [id number]#1.00TIFF Normal [facility] Follow-Upon 11-09-2023 Follow-Up [id number] Daniel Aguilar 1945 M Date Provider Department Center 11/09/[address] 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 [Other] Normal [facility] Follow-Upon 10-23-2023 Follow-Up [id number] Daniel Aguilar 1945 M Date Provider Department Center 10/23/2023 JUAN RAMON THOMAS [facility]TH[facility] TATYRTZEHRA Family History Family history unknown: Yes Level of Service:86774 [place] OFFICE/OUTPATIENT ESTABLISHED LOW MDM 20 MIN Reason for Visit and Comments: Pain [136] New Patient [632] Normal [facility] Consultation Noteon 10-06-19 Consultation Note [id number]#1.00TIFF [facility] Ambulatory Visit Summaryon 1 Ambulatory Visit Summary JHONATHAN AGUILAR :1945 Visit Date:09/15/2023 Ambulatory Visit Instructions Your Diagnosis Prostate cancer Nocturia Tests Performed Urnls Dip Stick Auto w/o Microscopy POC 72118 Your Care Team Attending Physician - MALOU MCGREGOR, German Colmenares Primary Care Physician - Marla Fortune This Is Your Medications List bicalutamide (bicalutamide 50 mg Tab) Contact prescribing physician if questions or concerns Misc Prescription (Handicap Placard) acetaminophen (Tylenol) amoxicillin-clavulanate (amoxicillin-clavulanate 500 mg-125 mg Tab) bifidobacterium-lactobacil jb (Probiotic + Colostrum) dicyclomine (dicyclomine 20 mg Tab) fluticasone nasal (Flonase 0.05 mg/inh Cades) meloxicam (meloxicam 7.5 mg Tab) [Image Removed: [...] German WESTFALL MD [facility] [address] [place] [address]- \.br\ You Need to Schedule the Following Appointments\. br\ Follow Up with German WESTFALL MD, URL When: \.br\ Where:\.br\ [address]br\ [place] [address]-\.br\ Medications\.b r\ What How Much When Why [...] Unchanged fluticasone nasal (Flonase 0.05 mg/ inh Cades) 2 Sprays Nasal Inhalation Every day Fluid [...] Urnls Dip Stick Auto w/o Microscopy POC 28870 (09/15/2023)\. br\ Bilirubin Urine Dipstick - Negative\.br\ Blood Urine Dipstick - Trace-intact\. br\ Glucose Urine Dipstick - Negative\.br\ Ketones Urine Dipstick - Negative\.br\ Leukocytes Urine Dipstick - Negative\.br\ Nitrite Urine Dipstick - Negative\.br\ Protein Urine Dipstick - Negative\.br\ Specific [place] Urine Dipstick - 1.020\.br\ Urine Appearance Urine [...] prostate cells (moderately differentiated ).\.br\ ? \.br\ Foster 8, 9, or 10: This indicates that the cancer cells look very different than normal prostate cells [facility] Consultation Noteon 09-15- 23 Consultation Note [id number]#1.00TIFF Normal [facility] Patient Educationon 09-15-20 23 Patient Education Oncology Prostate Cancer The prostate [...] likelihood that the cancer will spread. ? Foster 6 or lower: This indicates that the [...] external be (more content not included)... Normal [facility] Urology Office/Clinic Noteon 09-15-2023 Urology Office/Clinic Note [...] very well Current PSA done 08/24/23 PVR PSA: 09/25/14 - 1.11 02/10/23 - 26.2 [...] cores, highest % of core involvement 85%. Foster 7 (4+3) x 5 cores, highest % [...] Contact Information MALOU MCGREGOR, German Colmenares, URL [facility] [place] [address]- Additional Instructions: 3 months w/ PSA Patient [...] Transrectal needle (more content not included)... Normal [facility] Comment on above: Result Comment: Elec tronically Signed By: German WESTFALL MD\.br\Date and Time Signed: 09/15/23 09:40 EST\.br\Electronically Co-Signed By: Juany Mckeon.br\Date and Time Co-Signed: 09/15/23 09:38 EST CNOVon 09-07-2023 CNOV Office Visit (RADTSA ) -- JHONATHAN AGUILAR ([id number]) 1945 M Date Time Provider Department 09/07/23 10:15 AM Jennifer RUIZ During your visit today, we recorded the following information about you: Temperature Pulse Respiration Blood pressure 96.8 degrees 66/minute 16/minute 144/81 Weight 96.1 kg Jennifer Ruiz MD 09/14/2023 3:22 PM Signed Radiation Oncology - Follow Up Note PATIENT NAME: Jhonathan Aguilar PATIENT DIAGNOSIS: Prostate adenocarcinoma, initial PSA 26.2, biopsy Foster score 4 + 4 = 8 (grade [...] for Encounter Date Provider Department Center 09/07/2023 [id number] RUIZ CHELSIE Encounter Status:Closed by Jennifer RUIZ on 09/14/23 Normal [facility] Lab Reportson 08-29-2023 Lab Reports [id number]#1.00TIFF Normal [facility] Ambulatory Visit Summaryon 1 10-29-2022 Ambulatory Visit [...] mg Tab) fluticasone nasal (Flonase 0.05 mg/inh Cades) meloxicam (meloxicam 7.5 mg Tab) Procedures Performed [...] German WESTFALL MD Where: [facility] [place] [address]- \.br\ You Need to Schedule the Following Appointments\. br\ Follow Up with German WESTFALL MD, URL When: In 2 weeks\.br\ Comments:\.br\ appt made for 09/15/23 w/PSA and Lupron\.br\ Where:\.br\ [facility] [address]\.br\ [place] [address]-\.br\ Medications\.b r\ What How Much When Why Instructions\. br\ Changed solifenacin (Vesicare 10 mg Tab) 1 Tablets By Mouth Every day Pickup at [facility] [place] [address]\.br\ Unchanged bicalutamide (bicalutamide 50 mg Tab) 1 [...] Unchanged fluticasone nasal (Flonase 0.05 mg/ inh Cades) 2 Sprays Nasal Inhalation Every day Fluid [...] Information\.b r\ [facility]: [address], [place] [phone]\.br\ Allergies\.br\ CeleBREX (Unknown)\.br\ Orudis (Unknown)\.br\ codeine (Unknown)\.br\ [...] including vitamins, herbs, eye drops, creams, and olax-hjf-eilup er medicines.\.br \ ? \.br\ Any problems [...] you to take them.\.br\ ? \.br\ Taking phxc-cof-cgmje er medicines, vitamins, herbs, and supplements.\. br\ [...] \.br\ Taking antibiotic medicine before and after [facility] Patient Educationon 08-28-20 Patient Education Oncology Brachytherapy [...] including vitamins, herbs, eye drops, creams, and iaii-sbb-ryporga medicines. ? Any problems you or family [...] tells you to take them. ? Taking jajh-fye-kbnxosp medicines, vitamins, herbs, and supplements. ? Follow [...] (general anest (more content not included)... Normal [facility] Urology Office/Clinic Noteon 08-28-2023 Urology Office/Clinic Note [...] cores, highest % of core involvement 85%. Foster 7 (4+3) x 5 cores, highest % [...] radiation seeds. Follow-up With When Contact Information MALOU MCGREGOR, BHARAT Del Castillo In 2 weeks [facility] [address] [place] [address]- Additional Instructions: appt made for 09/15/23 w/PSA [...] primary osteoarthritis (more content not included)... Normal [facility] Comment on above: Result Comment: Elec tronically Signed By: German WESTFALL MD\.br\Date and Time Signed: 08/28/23 10:00 EST\.br\Electronically Co-Signed By: Margy Shields\.br\Date and Time Co-Signed: 08/28/23 09:58 EST PSA SerPl-mCncon 08-24-2023 Prostate specific Ag [Mass/Vol] 0.05 ng/mL Normal <2.60 [facility] Comment on above: Order Comment: Speci men Type: BLOOD SPECIMENOrdering Facility: [facility] Address: [address] [place] [address] Result Comment: Tota l PSA test methodology used is the Electrochemiluminescence Immunoassay by [employer]. Total PSA values by differing methodologies cannot be interchanged. Performed By: #### 2 857-1 ####[facility] LABCLIA [id number] [place] [address] [place] Insurance Correspondenceon 1 10-22-2022 Insurance Correspondence [id number]#1.00TIFF Normal [facility] Consultation Noteon 08-14-20 Consultation Note [id number]#1.00TIFF Onesimo Marquez [facility] CNOVon 08-09-2023 CNOV Office Visit (RADTSA ) -- JHONATHAN AGUILAR ([id number]) 1945 M Date Time Provider Department 08/09/23 [...] DIAGNOSIS: Prostate adenocarcinoma, initial PSA 26.2, biopsy Foster score 4 + 4 = 8 (grade [...] (HCC) [C61] Order(s):PSA/PROSTSPECAG DIAG [SQPSA] Order #: [id number] FUTURE Prescriptions as of 08/09/2023 - solifenacin [...] Date Pr (more content not included)... Normal [facility] RAD - MISCon 07-31-2023 RAD - MIS [id number]#1.00TIFF [facility] RAD - MISCon 07-30-2023 RAD - MIS [id number]#1.00TIFF [facility] CNOVon 07-27-2023 CNOV Office Visit (RADTSA ) -- JHONATHAN AGUILAR ([id number]) 1945 M Date Time Provider Department 07/27/23 8:00 AM Jennifer RUIZ RADTSA During your visit today, we recorded the following information about you: Jennifer Ruiz MD 07/27/2023 12:43 PM Signed Date: 07/27/23 Facility: [facility] Procedure: prostate transperineal brachytherapy implant Sources: [...] activity seen, results documented. La Ruiz MD [facility] Referring Provider: Jennifer RUIZ [[id number]] Allergies As of Date: 07/27/2023 Noted Allergy [...] Status:Closed by Jennifer RUIZ on 07/27/23 Normal [facility] Operative Reporton Operative Report [id number]#1.00TIFF Normal [facility] ECG 12-Leadon 07-18-2023 ECG 12-Lead [id number]#1.00TIFF Normal [facility] Lab Reportson 07-14-2023 Lab Reports [id number]#1.00TIFF Normal [facility] Lab Reports [id number]#1.00TIFF [facility] RAD - MISCon 07-14-2023 RAD - MISC [id number]#1.00TIFF [facility] Insurance Correspondenceon 1 Insurance Correspondence [id number]#1.00TIFF Onesimo [facility] CNOVmaddie 07-05-2023 [facility] Office Visit (RADTSA ) -- JHONATHAN AGUILAR ([id number]) 1945 M Date Time Provider Department 07/05/23 [...] Jennifer Ruiz MD Referring Provider: Jennifer RUIZ [[id number]] Allergies As of Date: 07/05/2023 Noted Allergy [...] Encounter Status:Closed by Jennifer RUIZ on 07/06/23 [facility] Consent for Procedure/Surger yon 06-21-2023 Consent for Procedure/Surgery [id number]#1.00CD:127 [facility] Consultation Noteon 06-14-20 Consultation Note [id number]#1.00CD:127 [facility] CNOVon 05-29-2023 CNOV Office Visit (RADTSA ) -- REXSILVINAJHONATHAN ([id number]) 1945 M Date Time Provider Department 05/29/23 8:45 AM Jennifer RUIZ RADTSA During your visit today, we recorded the following information about you: Temperature Pulse Respiration Blood pressure 96.7 degrees 72/minute 18/minute 144/71 Weight 95.3 kg Jennifer Ruiz MD 05/29/2023 9:10 AM Signed Radiation Oncology - On Treatment Review (OTR) Note PATIENT NAME: Jhonathan Aguilar PATIENT DIAGNOSIS: Prostate adenocarcinoma, initial PSA 26.2, biopsy Foster score 4 + 4 = 8 (grade [...] Encounter Status:Closed by Jennifer RUIZ on 05/29/23 [facility] CNOVon 05-23-2023 CNOV Office Visit (RADTSA ) -- JHONATHAN AGUILAR ([id number]) 1945 M Date Time Provider Department 05/23/23 [...] Encounter Status:Closed by Jennifer RUIZ on 05/23/23 [facility] CNOVon 05-16-2023 CNOV Office Visit (RADTSA ) -- JHONATHAN AGUILAR ([id number]) 1945 M Date Time Provider Department 05/16/23 9:00 AM Jennifer RUIZ RADDIONNEA During your visit today, we recorded the following information about you: Temperature Pulse Respiration Weight 97 degrees 59/minute 16/minute 94.8 kg Jennifer Ruiz MD 05/16/2023 8:52 AM Signed Radiation Oncology - On Treatment Review (OTR) Note PATIENT NAME: Jhonathan Aguilar PATIENT DIAGNOSIS: Prostate adenocarcinoma, initial PSA 26.2, biopsy Foster score 4 + 4 = 8 (grade [...] Encounter Status:Closed by Jennifer RUIZ on 05/16/23 [facility] CNOVon 05-08-2023 CNOV Office Visit (RADTSA ) -- JHONATHAN AGUILAR ([id number]) 1945 M Date Time Provider Department 05/08/23 [...] Status:Closed by Jennifer RUIZ on 05/08/23 Normal [facility] CBC W Auto Differential pane l (Bld)on 05-04-2023 Basophils (Bld) [#/Vol] 0.03 10*3/uL <0.11 k/uL [facility] Basophils/100 WBC (Bld) 0.8 % [facility] Differential cell count method Nom (Bld) Auto [facility] Eosinophils (Bld) [#/Vol] 0.19 10*3/uL <0.46 k/uL [facility] Eosinophils/100 WBC (Bld) 4.8 % [facility] Erythrocyte distribution width (RBC) [Ratio] 12.7 % 11.5 - 15.0 % [facility] Hematocrit (Bld) [Volume fraction] 40.3 % 39.0 - 51.0 % [facility] Hemoglobin (Bld) [Mass/Vol] 14.3 g/dL 13.0 - 17.0 g/dL [facility] Immature granulocytes (Bld) [#/Vol] <0.10 k/uL [facility] Immature granulocytes/100 WBC (Bld) 0.5 % [facility] Lymphocytes (Bld) [#/Vol] 1.08 10*3/uL 1.00 - 4.00 k/uL [facility] Lymphocytes/100 WBC (Bld) 27.1 % [facility] MCH (RBC) [Entitic mass] 32.4 pg 26.0 - 34.0 pg [facility] MCHC (RBC) [Mass/Vol] 35.5 g/dL 30.5 - 36.0 g/dL [facility] MCV (RBC) [Entitic vol] 91.4 fL 80.0 - 100.0 fL [facility] Monocytes (Bld) [#/Vol] 0.40 10*3/uL <0.87 k/uL [facility] Monocytes/100 WBC (Bld) 10.0 % [facility] Neutrophils (Bld) [#/Vol] 2.27 10*3/uL 1.45 - 7.50 k/uL [facility] Neutrophils/100 WBC (Bld) 56.8 % [facility] Nucleated RBC (Bld) [#/Vol] <0.01 k/uL [facility] Nucleated RBC/100 WBC (Bld) [Ratio] 0.0 /100 WBC [facility] Platelet mean volume (Bld) [Entitic vol] 10.4 fL 9.0 - 12.7 fL [facility] Platelets (Bld) [#/Vol] 125 10*3/uL Low 150 - 400 k/uL [facility] RBC (Bld) [#/Vol] 4.41 10*6/uL 4.20 - 6.0 0 m/uL [facility] WBC (Bld) [#/Vol] 3.99 10*3/uL 3.70 - 11. 00 k/uL [facility] Basophils (Bld) [#/Vol] 0.03 10*3/uL Normal <0.11 [facility] Comment on above: Order Comment: Speci men Type: BLOOD SPECIMENOrdering Facility: [facility] Address: [address] [place] [address] Performed By: #### 5 7021-8 ####[facility] LABCLIA [id number] [place] [address] Basophils/100 WBC (Bld) 0.8 % Normal [facility] Comment on above: Order Comment: Speci men Type: BLOOD SPECIMENOrdering Facility: [facility] Address: [address] [place] [address] Performed By: #### 5 7021-8 ####[facility] LABCLIA [id number] [place] [address] Differential cell count method Nom (Bld) Auto Normal [facility] Comment on above: Order Comment: Speci men Type: BLOOD SPECIMENOrdering Facility: [facility] Address: [address] [place] [address] Performed By: #### 5 7021-8 ####[facility] LABCLIA [id number] [place] [address] Eosinophils (Bld) [#/Vol] 0.19 10*3/uL Normal <0.46 [facility] Comment on above: Order Comment: Speci men Type: BLOOD SPECIMENOrdering Facility: [facility] Address: [address] [place] [address] Performed By: #### 5 7021-8 ####[facility] LABCLIA [id number] [place] [address] Eosinophils/100 WBC (Bld) 4.8 % Normal [facility] Comment on above: Order Comment: Speci men Type: BLOOD SPECIMENOrdering Facility: [facility] Address: [address] [place] [address] Performed By: #### 5 7021-8 ####[facility] LABCLIA [id number] [place] [address] Erythrocyte distribution width (RBC) [Ratio] 12.7 % Normal 11.5-15.0 [facility] Comment on above: Order Comment: Speci men Type: BLOOD SPECIMENOrdering Facility: [facility] Address: [address] [place] [address] Performed By: #### 5 7021-8 ####[facility] LABCLIA [id number] [place] [address] Hematocrit (Bld) [Volume fraction] 40.3 % Normal 39.0-51.0 [facility] Comment on above: Order Comment: Speci men Type: BLOOD SPECIMENOrdering Facility: [facility] Address: [address] [place] [address] Performed By: #### 5 7021-8 ####[facility] LABCLIA [id number] [place] [address] Hemoglobin (Bld) [Mass/Vol] 14.3 g/dL Normal 13.0-17.0 [facility] Comment on above: Order Comment: Speci men Type: BLOOD SPECIMENOrdering Facility: [facility] Address: [address] [address] Performed By: #### 5 7021-8 ####[facility] LABCLIA [id number] [place] [address] Immature granulocytes (Bld) [#/Vol] 10*3/uL Normal <0.10 [facility] Comment on above: Order Comment: Speci men Type: BLOOD SPECIMENOrdering Facility: [facility] Address: [address] [place] [address] Performed By: #### 5 7021-8 ####[facility] LABCLIA [id number] [place] [address] Immature granulocytes/100 WBC (Bld) 0.5 % Normal [facility] Comment on above: Order Comment: Speci men Type: BLOOD SPECIMENOrdering Facility: [facility] Address: [address] [place] [address] Performed By: #### 5 7021-8 ####[facility] LABCLIA [id number] [place] [address] Lymphocytes (Bld) [#/Vol] 1.08 10*3/uL Normal 1.00-4.00 [facility] Comment on above: Order Comment: Speci men Type: BLOOD SPECIMENOrdering Facility: [facility] Address: [address] [place] [address] Performed By: #### 5 7021-8 ####[facility] LABCLIA [id number] [place] [address] Lymphocytes/100 WBC (Bld) 27.1 % Normal [facility] Comment on above: Order Comment: Speci men Type: BLOOD SPECIMENOrdering Facility: [facility] Address: [address] [place] [address] Performed By: #### 5 7021-8 ####[facility] LABCLIA [id number] [place] [address] MCH (RBC) [Entitic mass] 32.4 pg Normal 26.0-34.0 [facility] Comment on above: Order Comment: Speci men Type: BLOOD SPECIMENOrdering Facility: [facility] Address: [address] [place] [address] Performed By: #### 5 7021-8 ####[facility] LABCLIA [id number] [place] [address] MCHC (RBC) [Mass/Vol] 35.5 g/dL Normal 30.5-36.0 [facility] Comment on above: Order Comment: Speci men Type: BLOOD SPECIMENOrdering Facility: [facility] Address: [address] [place] [address] Performed By: #### 5 7021-8 ####[facility] LABCLIA [id number] [place] [address] MCV (RBC) [Entitic vol] 91.4 fL Normal 80.0-100.0 [facility] Comment on above: Order Comment: Speci men Type: BLOOD SPECIMENOrdering Facility: [facility] Address: [address] [place] [address] Performed By: #### 5 7021-8 ####[facility] LABCLIA [id number] [place] [address] Monocytes (Bld) [#/Vol] 0.40 10*3/uL Normal <0.87 [facility] Comment on above: Order Comment: Speci men Type: BLOOD SPECIMENOrdering Facility: [facility] Address: [address] [place] [address] Performed By: #### 5 7021-8 ####[facility] LABCLIA [id number] [place] [address] Monocytes/100 WBC (Bld) 10.0 % Normal [facility] Comment on above: Order Comment: Speci men Type: BLOOD SPECIMENOrdering Facility: [facility] Address: [address] [place] [address] Performed By: #### 5 7021-8 ####[facility] LABCLIA [id number] [place] [address] Neutrophils (Bld) [#/Vol] 2.27 10*3/uL Normal 1.45-7.50 [facility] Comment on above: Order Comment: Speci men Type: BLOOD SPECIMENOrdering Facility: [facility] Address: [address] [place] [address] Performed By: #### 5 7021-8 ####[facility] LABCLIA [id number] [place] [address] Neutrophils/100 WBC (Bld) 56.8 % Normal [facility] Comment on above: Order Comment: Speci men Type: BLOOD SPECIMENOrdering Facility: [facility] Address: [address] [place] [address] Performed By: #### 5 7021-8 ####[facility] LABCLIA [id number] [place] [address] Nucleated RBC (Bld) [#/Vol] 10*3/uL Normal <0.01 [facility] Comment on above: Order Comment: Speci men Type: BLOOD SPECIMENOrdering Facility: [facility] Address: [address] [place] [address] Performed By: #### 5 7021-8 ####[facility] LABIA [id number] [place] [address] Nucleated RBC/100 WBC (Bld) [Ratio] 0.0 /100 WBC Normal [facility] Comment on above: Order Comment: Speci men Type: BLOOD SPECIMENOrdering Facility: [facility] Address: [address] [place] [address] Performed By: #### 5 7021-8 ####[facility] LABCLIA [id number] [place] [address] Platelet mean volume (Bld) [Entitic vol] 10.4 fL Normal 9.0-12.7 [facility] Comment on above: Order Comment: Speci men Type: BLOOD SPECIMENOrdering Facility: [facility] Address: [address] [place] [address] Performed By: #### 5 7021-8 ####[facility] LABIA [id number] [place] [address] Platelets (Bld) [#/Vol] 125 10*3/uL Low 150-400 [facility] Comment on above: Order Comment: Speci men Type: BLOOD SPECIMENOrdering Facility: [facility] Address: [place] [address] Performed By: #### 5 7021-8 ####[facility] LABIA [id number] [place] [address] RBC (Bld) [#/Vol] 4.41 10*6/uL Normal 4.20-6.00 [facility] Comment on above: Order Comment: Speci men Type: BLOOD SPECIMENOrdering Facility: [facility] Address: [place] [address] Performed By: #### 5 7021-8 ####[facility] LABIA [id number] [place] [address] WBC (Bld) [#/Vol] 3.99 10*3/uL Normal 3.70-11.00 [facility] Comment on above: Order Comment: Speci men Type: BLOOD SPECIMENOrdering Facility: [facility] Address: [place] [address] Performed By: #### 5 7021-8 ####[facility] LABIA [id number] [place] [address] CNOVon 05-04-2023 CNOV Office Visit (RADTSA ) -- JHONATHAN AGUILAR ([id number]) 1945 M Date Time Provider Department 05/04/23 8:45 AM LAB/PORT CARMELITA HOLGUIN RADTSA During your visit today, we recorded [...] [C61] Order(s):CBC + DIFF [SQCBCDIF] Order #: [id number]. #:[id number] Prescriptions as of 05/04/2023 - amoxicillin-clavulanic acid [...] (None) Visit Notes: >> Rosa Lau RN [facility] May 04, 2023 8:49 AM Status: [...] Encounter Status:Closed by ROSA LAU on 05/04/23 [facility] CNOVon 05-01-2023 CNOV Office Visit (RADTSA ) -- JHONATHAN AGUILAR ([id number]) 1945 M Date Time Provider Department 05/01/23 9:15 AM Jennifer RUIZ During your visit today, we recorded the following information about you: Temperature Pulse Respiration Blood pressure 96.7 degrees 61/minute 18/minute 158/80 Weight 94.8 kg Jennifer Ruiz MD 05/01/2023 9:26 AM Signed Radiation Oncology - On Treatment Review (OTR) Note PATIENT NAME: Jhonathan Aguilar PATIENT DIAGNOSIS: Prostate adenocarcinoma, initial PSA 26.2, biopsy Foster score 4 + 4 = 8 (grade [...] Encounter Status:Closed by Jennifer RUIZ on 05/01/23 [facility] CNOVon 04-26-2023 CNOV Office Visit (RADTSA ) -- JHONATHAN AGUILAR ([id number]) 1945 M Date Time Provider Department 04/26/23 9:00 AM Jennifer RUIZ RADTSA During your visit today, we recorded the following information about you: Jennifer Ruiz MD 05/01/2023 9:27 AM Signed Radiation Oncology - On Treatment Review (OTR) Note PATIENT NAME: Jhonathan Aguilar PATIENT DIAGNOSIS: Prostate adenocarcinoma, initial PSA 26.2, biopsy Foster score 4 + 4 = 8 (grade [...] Encounter Status:Closed by Jennifer RUIZ on 05/01/23 [facility] JHONATH[facility] AGUILAR ([id number]) 1945 M Date Time Provider Department 04/25/23 Jennifer RUIZ [place] During your visit today, we recorded the [...] [C61] Order(s):CBC + DIFF [SQCBCDIF] Order #: [id number] FUTURE Prescriptions as of 04/25/2023 - amoxicillin-clavulanic [...] Encounter Status:Closed by Jennifer RUIZ on 04/25/23 [facility] CNOVon 04-18-2023 CNOV Office Visit (ALETHA ) -- JHONATHAN AGUILAR ([id number]) 1945 M Date Time Provider Department 04/18/23 3:00 PM Jennifer RUIZ During your visit today, we recorded the following information about you: Allergies As of Date: 04/18/2023 Noted Allergy Reaction CODEINE 04/05/2023 1 - Mental Status Change OXYCODONE 04/05/2023 14 - Other: See Comments Comments: Dizziness, syncope Date Reviewed: 04/05/2023 Reviewed by: Rosa Lau, RN - Fully Assessed Reason for Visit: Simulation Request Form [8955] Primary Visit Diagnosis:Malignant neoplasm of prostate (HCC) [C61] Order(s):RADIATION TREATMENT PER RADIATION ONCOLOGIST PLAN [2105900] Order #: [id number]: 1 CT SIM PLANNING RADIATION ONCOLOGY [4205392] Order #: [id number] PT ED CANCER [3411244] Order #: [id number]: 1 Prescriptions as of 04/19/2023 - amoxicillin-clavulanic [...] Status:Closed by Jennifer RUIZ on 04/19/23 Normal [facility] Follow-Upon 04-17-2023 Follow-Up [id number] Daniel Aguilar 1945 M Date Provider Department Center 04/17/[address] 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 gland. Adenocarcinoma Foster 8 (4+4) from the left base left lateral mid left lateral apical and right lateral base cores, in addition Foster 74+3 from right base right mid right [...] clinical stag (more content not included)... Normal [facility] IntraOperative Documentson 0 03-30-2023 IntraOperative Documents [id number]#1.00CD:127 Normal [facility] RAD - Pet Scan Reporton 03-18 RAD - Pet Scan Report [id number]#1.00CD:127 Normal [facility] Ambulatory Visit Summaryon 0 03-27-2023 Ambulatory Visit [...] mg Tab) fluticasone nasal (Flonase 0.05 mg/inh Cades) meloxicam (meloxicam 7.5 mg Tab) Procedures Performed Transrectal needle biopsy of prostate (03/07/2023), Biopsy (02/16/2023), Cataract, Cyst, Hip arthroplasty, Surgery. Discharge Vitals Heart Rate (Peripheral) 90 Respiratory Rate 16 Blood Pressure 138/88 Height 178 cm Height 70 in Weight 100 kg Weight 220 lb BMI 31.56 What to do next Scheduled Follow-Up Appointments Monday 8:00 AM EDT Where: [facility] Normal [facility] Lab Reportson 03-27-2023 Lab Reports [id number]:127 [facility] Patient Educationon 07-10-20 23 Patient Education Oncology Hormone Suppression Therapy for [...] cancer. Where to find more information ? [place] [employer]: www.cancer.org ? National Cancer [place]: www.cancer.gov Contact a health care provider if: [...] an emergenc (more content not included)... Normal [facility] Urology Office/Clinic Noteon 03-27-2023 Urology Office/Clinic Note [...] prostate L >>R [1]. TRUS/bx 03/07/23 - Ev 8 (4+4) x 4 cores, highest % of core involvement 85%. Foster 7 (4+3) x 5 cores, highest % [...] mg qd. -Referral to Dr. Ruiz at [facility] for EBRT 2. Family history of prostate cancer in father (Z80.42: Family history of malignant neoplasm of prostate) Pt's father had prostate/colon cancer, treated with radiation seeds. [1] [1] Follow-up With When Contact Information MALOU MCGREGOR, German Colmenares, URL [facility] [address] [place] [phone] Additional Instructions: referral to rad onc Patient Education Hormone Suppression Therapy for Prostate Cancer Brachytherapy for Prostate Cancer Denisha Trujillo, personally scribed for Dr. Westfall on 03/27/2023 10:40:21. . Documentation recorded by the geneibDenisha stoll, accurately reflects the services(s) I performed and [...] QID, PRN, 3 refills Flonase 0.05 mg/inh Cades, 2 spray(s), Nasal, Daily Handicap Placard, See Instructions meloxicam 7.5 mg Tab, 7.5 mg= 1 tab(s), Oral, BID, PRN, 11 refills Probiotic + Colostrum, Oral, Daily Tylenol, Oral Allergies (more content not included)... Normal [facility] Comment on above: Result Comment: Elec tronically Signed By: Ashlie Naik\.jamshid\Date and Time Signed: 03/27/23 11:17 EDT RAD - CT Reporton 03-25-2023 RAD - CT Report [id number]#1.00CD:127 Normal [facility] Ambulatory Visit Summaryon 0 03-15-2023 Ambulatory Visit [...] mg Tab) fluticasone nasal (Flonase 0.05 mg/inh Cades) meloxicam (meloxicam 7.5 mg Tab) Procedures Performed Transrectal needle biopsy of prostate (03/07/2023), Biopsy (02/16/2023), Cataract, Cyst, Hip arthroplasty, Surgery. Discharge Vitals Heart Rate (Peripheral) 78 Respiratory Rate 16 Blood Pressure 132/70 Height 178 cm Height 70 in Weight 100 kg Weight 220 lb BMI 31.56 What to do next Scheduled Follow-Up Appointments Monday 8:00 AM EDT Where: [facility] Ambulatory Visit Summary JHONATHAN AGUILAR :1945 [...] mg Tab) fluticasone nasal (Flonase 0.05 mg/inh Cades) meloxicam (meloxicam 7.5 mg Tab) Procedures Performed Transrectal needle biopsy of prostate (03/07/2023), Biopsy (02/16/2023), Cataract, Cyst, Hip arthroplasty, Surgery. Discharge Vitals Heart Rate (Peripheral) 78 Respiratory Rate 16 Blood Pressure 132/70 Height 178 cm Height 70 in Weight 100 kg Weight 220 lb BMI 31.56 What to do next Scheduled Follow-Up Appointments Monday 8:00 AM EDT Where: [facility] Ambulatory Visit Summary JHONATHAN AGUILAR :1945 [...] mg Tab) fluticasone nasal (Flonase 0.05 mg/inh Cades) meloxicam (meloxicam 7.5 mg Tab) Procedures Performed Biopsy (02/16/2023), Cataract, Cyst, Hip arthroplasty, Surgery. Discharge Vitals Heart Rate (Peripheral) 72 Respiratory Rate 18 Blood Pressure 146/80 Height 180.5 cm Height 71 in Weight 96.5 kg Weight 212.3 lb BMI 29.62 What to do next Scheduled Follow-Up Appointments Monday 11:15 AM EDT With: MALOU MCGREGOR, German Colmenares Where: [facility] [place] [id number] \.br\ Medications\.b r\ What How Much When Why Instructions\. br\ New fluticasone nasal (Flonase 0.05 mg/ inh Cades) 2 Sprays Nasal Inhalation Every day Fluid level behind tympanic membrane of both ears Seasonal allergies BMI 29.0-29.9,adul t Non-smoker each nostril Pickup at [facility]\.br\ Unchanged acetaminophen (Tylenol) By Mouth\.br\ Unchanged amoxicillin-cl [...] Information\.b r\ [facility]: [address] [place], [place] [id number] [phone]\.br\ Allergies\.br\ CeleBREX (Unknown)\.br\ Orudis (Unknown)\.br\ codeine (Unknown)\.br\ [...] IBS - Irritable bowel syndrome\.br\ Sciatica\.br\ \.br\ [facility] Consenton 03-15-2023 Consent [id number]#1.00CD:127 Normal [facility] Family Medicine Office/Clini c Noteon 03-15-2023 Family [...] QID, PRN, 3 refills Flonase 0.05 mg/inh Cades, 2 spray(s), Nasal, Daily Handicap Placard, See Instructions meloxicam 7.5 mg Tab, 7.5 mg= 1 tab(s), Oral, BID, PRN, 11 refills Probiotic + Colostrum, Oral, Daily Tylenol, Oral Allergies CeleBREX (Unknown) Orudis (Unknown) codeine (Unknown) oxyCODONE (Lightheaded) Social History Alcohol - Low Risk, 12/02/2022 Other Substance Abuse - Denies Substance Abuse, 12/03/19 (more content not included)... Normal [facility] Comment on above: Result Comment: Elec tronically [...] cancer. Where to find more information ? [place] [employer]: www.cancer.org ? National Cancer [place]: www.cancer.gov Contact a health care provider if: [...] an emergenc (more content not included)... Normal [facility] Urology Office/Clinic Noteon 03-15-2023 Urology Office/Clinic Note [...] prostate L >>R [1]. TRUS/bx 03/07/23 - Ev 8 (4+4) x 4 cores, highest % of core involvement 85%. Foster 7 (4+3) x 5 cores, highest % [...] cons of each therapy today, and this Som[employer] prostate cancer book was provided. Explained that [...] hip infection. 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 He wishes for seeds/external radiation vs. surgery. Follow up after below or sooner if needed. Pt understands and agrees with plan. -NM bone scan. -CT AP w/wo con. -Refer to rad onc. -Start Casodex 50 mg qd. SEs discussed. Rx sent to [facility]. will give Lupron when prior auth is completed. 2. Family history of prostate cancer in father (Z80.42: Family history of malignant neoplasm of prostate) Pt's father had prostate/colon cancer, treated with radiation seeds. [1] Follow-up With When Contact Information MALOU MCGREGOR, German Colmenares, URL [facility] [address], [place] [address]- Additional Instructions: f/u after NM bone, CT, [...] mg Tab (more content not included)... Normal [facility] Comment on above: Result Comment: Elec tronically Signed By: German WESTFALL MD\.br\Date and Time Signed: 03/15/23 11:47 EDT\.br\Electronically Co-Signed By: Jennie Mirza\.br\Date and Time Co-Signed: 03/15/23 11:42 EDT Prostate Histology ([facility]) on 03-13-2023 Prostate Histology Diagnosis Info Invalid Interpretation Code [facility] Comment on above: Result Comment: A:Pr ostate,Left Lateral Base:Needle Biopsy Interpretation - - Atypical acinar glands suspicious for adenocarcinoma. MicroScopic Description - B:Prostate,Left Lateral Mid:Needle Biopsy Interpretation - - Acinar adenocarcinoma of prostate; Foster score 8(4+4); Tumor measures 0.60 cm in length; 85% of the core involved by tumor; 1 of 1 core involved. MicroScopic Description - C:Prostate,Left Lateral [place]:Needle Biopsy Interpretation - - Acinar adenocarcinoma of prostate; Ev score 8(4+4); Tumor measures 0.15 cm in length; 37% of the core involved by tumor; 1 of 1 core involved. MicroScopic Description - D:Prostate,Left Base:Needle Biopsy Interpretation - - Acinar adenocarcinoma of prostate; Ev score 8(4+4); Tumor measures 0.5 cm in length; 62% of the core involved by tumor; 1 of 1 core involved. MicroScopic Description - E:Prostate,Left Mid:Needle Biopsy Interpretation - - Acinar adenocarcinoma of prostate; Foster score 7(4+3); Tumor measures 1 cm in length; 66% of the core involved by tumor; 1 of 1 core involved. MicroScopic Description - F:Prostate,Left [place]:Needle Biopsy Interpretation - - Atypical small acinar glands. MicroScopic Description - G:Prostate,Right Base:Needle Biopsy Interpretation - - Acinar adenocarcinoma of prostate; Ev score 7(4+3); Tumor measures 0.35 cm in length; 26% of the core involved by tumor; 1 of 1 core involved. MicroScopic Description - H:Prostate,Right Mid:Needle Biopsy Interpretation - - Acinar adenocarcinoma of prostate; Foster score 7(4+3); Tumor measures 0.6 cm in length; 31% of the core involved by tumor; 1 of 1 core involved. MicroScopic Description - I:Prostate,Right [place]:Needle Biopsy Interpretation - - Acinar adenocarcinoma of prostate; Ev score 7(4+3); Tumor measures 0.83 cm in length; 46% of the core involved by tumor; 1 of 1 core involved. MicroScopic Description - J:Prostate,Right Lateral Base:Needle Biopsy Interpretation - - Acinar adenocarcinoma of prostate; Foster score 8(4+4); Tumor measures 0.31 cm in length; 31% of the core involved by tumor; 1 of 1 core involved. MicroScopic Description - K:Prostate,Right Lateral Mid:Needle Biopsy Interpretation - - Acinar adenocarcinoma of prostate; Ev score 7(4+3); Tumor measures 1.3 cm in length; 65% of the core involved by tumor; 1 of 1 core involved. MicroScopic Description - L:Prostate,Right Lateral [place]:Needle Biopsy Interpretation - - Atypical acinar glands [...] on: 03/13/2023 13:24:39 Performed By: #### 1 [id number] #### [address] [address] Consent for Procedure/Surger yon 03-07-2023 Consent for Procedure/Surgery [id number]#1.00CD:127 Normal [facility] Consent for Treatmenton 02-17 Consent for Treatment [id number]#1.00CD:127 Normal [facility] IntraOperative Documentson 0 03-07-2023 IntraOperative Documents [id number]#1.00CD:127 Normal [facility] Main OR Intraoperative Recor don 03-07-2023 Main OR Intraoperative Record IntraOp Document Type FTURO Summary Primary Physician: German WESTFALL MD Finalized Date/Time: 03/07/23 09:10:52 Pt. Name: JHONATHAN AGUILAR Soni ChristyB./Sex: 1945 Male Med Rec #: [id number] Physician: German WESTFALL MD Financial #: [id number] Pt. Type: O Room/Bed: / Admit/Disch: 03/07/23 07:43:39 - Institution: Case Times FTURO Entry 1 Patient Times In Room 03/07/23 08:43:00 Out Room 03/07/23 09:07:00 Procedure Times Start 03/07/23 08:50:00 Stop 03/07/23 08:57:00 Anesthesia Times Last Modified By: Melinda Sotelo RN 03/07/23 09:07:30 Case Attendance FTURO Entry 1 Entry 2 Entry 3 Case Attendee German WESTFALL MD CHURN OPERATOR MARGARINE, Nova Sotelo RN, Melinda Farmer Role Performed Surgeon - Primary Scrub - Primary Cancer Genetic Counselor - Primary Time In 03/07/23 08:43:00 03/07/23 [...] (If Participants Nova Amado CST, Applicable) Melinda Soetlo RN Time Out Complete 03/07/23 08:44:00 Allergies [...] By: Melinda Sotelo RN 03/07/23 09:10 Normal [facility] Main OR Preoperative Recordo n 03-07-2023 Main OR Preoperative Record Holding Area Document Type FTURO Summary Primary Physician: German WESTFALL MD Finalized Date/Time: 03/07/23 08:44:42 Pt. Name: JHONATHAN AGUILAR /Sex: 1945 Male Med Rec #: [id number] Physician: German WESTFALL MD Financial #: [id number] Pt. Type: O Room/Bed: / Admit/Disch: 03/07/23 [...] Complaints of Pain: No Skin Integrity Intact, [place], Warm, & Dry Vitals - EU Blood Pressure 140/73 Pulse 70 bpm Respirations 20 br/min SPO2 96 % RN Reviewed Yes Last Modified By: Melinda Sotelo RN 03/07/23 08:44:39 General Comments: Temp 36.4 Finalized By: Melinda Sotelo RN Document Signatures Signed By: Dawn Butt LPN 03/07/23 08:00 Melinda Sotelo RN 03/07/23 08:44 Normal [facility] Operative Reporton Operative Report Patient: ESTEFANIA AGUILAR [...] were sent to pathology for evaluation. Normal [facility] Comment on above: Result Comment: Caitlin wilson Signed By: MALOU MCGREGOR, German Valle.jamshid\Date and Time Signed: 03/07/23 09:08 EDT Outpatient Surgery Discharge Instructionon 03-07-2023 Outpatient Surgery Discharge Instruction [id number]#[id number]:127 Normal [facility] Patient Educationon 03-07-20 23 Patient Education Custom Transrectal Ultrasound of the [...] for your post-operative appointment in 1-2 weeks [phone] or [phone] Normal [facility] Prostate Histology ([facility]) on 03-07-2023 PH Method of Extraction Needle Biopsy Normal [facility] Comment on above: Performed By: #### 1 [id number] #### [facility] [address] [place] [address] PH Number of Jars 2 Invalid Interpretation Code [facility] Comment on above: Performed By: #### 1 [id number] #### [facility] [address] [place] [address] PH Specimen 1 L Base Prostate Normal [facility] Comment on above: Performed By: #### 1 [id number] #### [facility] [address] [place] [address] PH Specimen 10 R Lat Bse Prost Normal [facility] Comment on above: Performed By: #### 1 [id number] #### [facility] [address] [place] [address] PH Specimen 11 R Lat Mid Prost Normal [facility] Comment on above: Performed By: #### 1 [id number] #### [facility] [address] [place] [address] PH Specimen 12 R Lat Apx Prost Normal [facility] Comment on above: Performed By: #### 1 [id number] #### [facility] [address] [place] [address] PH Specimen 2 L Mid Prostate Normal [facility] Comment on above: Performed By: #### 1 [id number] #### [facility] [address] [place] [address] PH Specimen 3 L Apx Prostate Normal [facility] Comment on above: Performed By: #### 1 [id number] #### [facility] [address] [place] [address] PH Specimen 4 L Lat Bse Prost Normal [facility] Comment on above: Performed By: #### 1 [id number] #### [facility] [address] [place] [address] PH Specimen 5 L Lat Mid Prost Normal [facility] Comment on above: Performed By: #### 1 [id number] #### [facility] [address] [place] [address] PH Specimen 6 L Lat Apx Prost Normal [facility] Comment on above: Performed By: #### 1 [id number] #### [facility] [address] [place] [address] PH Specimen 7 R Base Prostate Normal [facility] Comment on above: Performed By: #### 1 [id number] #### [facility] [address] [place] [address] PH Specimen 8 R Mid Prostate Normal [facility] Comment on above: Performed By: #### 1 [id number] #### [facility] [address] [place] [address] PH Specimen 9 R Apx Prostate Normal [facility] Comment on above: Performed By: #### 1 [id number] #### [facility] [address] [place] [address] PH Type of Service Technical Only Normal [facility] Comment on above: Performed By: #### 1 [id number] #### [facility] [address] [place] [address] Ambulatory Visit Summaryon 0 03-01-2023 Ambulatory Visit Summary JHONATHAN AGUILAR :1945 Visit Date:03/01/2023 Ambulatory Visit Instructions Your Diagnosis Elevated PSA Family history of prostate cancer Former smoker Tests Performed Urnls Dip Stick Auto w/o Microscopy POC 87698 Your Care Team Attending Physician - MALOU MCGREGOR, German Colmenares Primary Care Physician - UDAY WILSON MD Referring Physician - JENNY MCGREGOR, UDAY Stoll This Is Your Medications List Contact prescribing [...] Follow-Up Appointments Monday 8:00 AM EDT Where: [facility] Invalid Interpretation Code Family history of prostate cancer [facility] Formson 03-01-2023 Forms [id number]#1.00CD:127 Normal [facility] Patient Educationon 03-01-20 23 Patient Education Oncology [...] if anything looks unusual. Men with a iwbbxp-kmay-owpktl risk for skin cancer may want to see a direct care specialist (door installer) for an annual body check. What are the benefits of screening? Cancer screening is done to look for cancer in the very early stages, before it spreads and becomes harder to treat and before you would start to notice symptoms. Finding cancer early improves the chances of successful treatment. It ma (more content not included)... Normal [facility] Pre-Certification Formon Pre-Certification Form [id number]#1.00CD:127 Normal [facility] Screenson 03-01-2023 Screens [id number]#1.00CD:127 Normal [facility] HEMATOLOGYOrdered By: SYSTEM SYSTEM on 02-15-2023 Basophils/100 [...] Normal 4.0 - 11.0 E9/L [facility] HemeAutoSS CHEMISTRYOrdered By: SYSTEM SYSTEM on 02-10-2023 Albumin [...] 70 mL/min/1.73 m2 Normal >=59mL/min/1.7 3 m2 [facility] S Globulin (S) [Mass/Vol] 3.1 g/dL Normal 1.4 - 4.0 gm/dL [facility] Remisol Glucose [Mass/Vol] 100 mg/dL Normal 55 - 199 mg/dL [facility] Remisol Potassium [Moles/Vol] 4.3 mmol/L Normal 3.5 - 5.3 mmol/L [facility] Remisol Prostate specific Ag [Mass/Vol] 26.2 ng/mL High 0.1 - 3.5 ng/mL [facility] Remisol Protein [Mass/Vol] 7.2 g/dL Normal 6.0 - 7.8 gm/dL [facility] Remisol Sodium [Moles/Vol] 138 mmol/L Normal 135 - 145 mmol/L [facility] Remisol Triglyceride [Mass/Vol] 97 mg/dL Normal <=149mg/dL [facility] Remisol Urea nitrogen [Mass/Vol] 20 mg/dL Normal 5 - 21 mg/dL [facility] [facility] Remisol Urea nitrogen/Creatinine [Mass ratio] 18 mg/mg Normal 10 - 20 FT Remisol 36on 01-30-2023 36 Call to Arabella to inform the schedule is not out that far. Suggests she call back next month. Voiced understanding. [facility] 36 Patient needs schedu led for first week in April or End of March. Blood work is usually ordered in [place] before appointment as well so it can be reviewed. Please call Arabella back to get this scheduled. Thank you. [facility] Office Visiton 12-02-2022 Follow-up visit [id number] Daniel Aguilar 1945 M Date Provider Department Center 12/02/2022 JUAN RAMON THOMAS ORTHO MPORTHO No family history on file Level of Service:66829 [place] OFFICE/OUTPATIENT ESTABLISHED MOD MDM 30-39 MIN Reason for Visit and Comments: Follow-up [296739] Pain [136] Normal [facility] CRPon 10-10-2022 CRP [Mass/Vol] mg/L Normal <=1.0 [facility] Comment on above: Performed By: #### C RP #### [facility] Laboratory [address] [address] [address] Lissett Britton SED RATE WESTERGRENon 2022 SED RATE 6 mm/hr Normal <=20 [facility] Comment on above: Performed By: #### S EDR #### [facility] [address] [address] [address] Lissett Britton Covid-19 PCR (CVDTBH)on 06-18 SARS-CoV-2 (COVID-19) RNA DANILO+probe Ql (Unsp spec) Not detected Normal NOT DETECTED [facility] Comment on above: Result Comment: This test is not yet approved or cleared by the [place] FDA. When there are no FDA-approved or cleared tests available, and other criteria are met, FDA can make tests available under an emergency access mechanism called an Emergency Use Authorization (EUA). The EUA for this test is supported by the Field Counsel of Health and Human Service's (HHS's) declaration [...] SARS-CoV-2. Performed By: #### C VDTBH #### [facility] [address] [place] [address] Dr. Lissett Britton MRSA NARES #1on 07-04-2022 MRSA NARES #1 Culture Observations : NO GROWTH OF MRSA AT 48 HOURS. Normal [facility] Comment on above: Performed By: #### M RSAN1 #### [facility] [address] [place] [address] Dr. Lissett Britton CRPon 05-24-2022 CRP [Mass/Vol] mg/L Normal <=1.0 [facility] Comment on above: Performed By: #### S EDR #### [facility] [address] [place] [address] Dr. Lissett Britton SED RATE WESTERGRENon 2021 SED RATE 17 mm/hr Normal <=20 [facility] Comment on above: Performed By: #### S EDR #### [facility] [address] [place] [address] Dr. Lissett Britton HIP LEFT 1 OR 2 VWS WITH PEL VISon 04-01-2022 HIP LEFT 1 OR 2 VWS WITH PELVIS [facility] Department of Radiology [address] [place] [id number] Patient Name: JHONATHAN AGUILAR : 1945 [...] process. Electronically signed: Yaneli Wallace. Transcribed by: [email or web address], User Resident: Electronically Signed by: YANELI WALLACE @ 04/03/2022 06:52 AM Normal [facility] Comment on above: Order Comment: Evalu ate CBC AUTO DIFFon 02-08-2022 BASO # 0.0 103/ul Normal 0.0-0.1 [facility] [place] [facility] Comment on above: Performed By: #### C BC #### [facility] [address] [address] [address] Lissett Britton Basophils/100 WBC (Bld) 0.8 % Normal 0.2-2.0 [facility] Comment on above: Performed By: #### C BC #### [facility] [address] [place] [address] Dr. Lissett Britton EO # 0.3 103/ul Normal 0.0-0.7 [facility] Comment on above: Performed By: #### C BC #### [facility] [address] [place] [address] Dr. Lissett Britton Eosinophils/100 WBC (Bld) 5.8 % Normal 0.9-7.0 [facility] Comment on above: Performed By: #### C BC #### [facility] [address] [place] [address] Dr. Lissett Britton Erythrocyte distribution width (RBC) [Ratio] 13.0 % Normal 11.0-15.0 [facility] Comment on above: Performed By: #### C BC #### [facility] [address] [place] [address] Dr. Lissett Britton Hematocrit (Bld) [Volume fraction] 43.5 % Normal 42.0-54.0 [facility] Comment on above: Performed By: #### C BC #### [facility] [address] [place] [address] Dr. Lissett Britton Hemoglobin (Bld) [Mass/Vol] 14.5 g/dL Normal 14.0-18.0 [facility] Comment on above: Performed By: #### C BC #### [facility] [address] [place] [address] Dr. Lissett Britton IG # 0.01 10e3/ul Normal 0.00-0.03 [facility] Comment on above: Performed By: #### C BC #### [facility] [address] [place] [address] Dr. Lissett Britton IG % 0.2 % Normal 0.0-0.5 [facility] Comment on above: Performed By: #### C BC #### [facility] [address] [place] [address] Dr. Lissett Britton LYMPH # 1.8 103/ul Normal 1.2-3.8 [facility] Comment on above: Performed By: #### C BC #### [facility] [address] [place] [address] Dr. Lissett Britton Lymphocytes/100 WBC (Bld) 36.6 % Normal 20.5-60.0 [facility] Comment on above: Performed By: #### C BC #### [facility] [address] [place] [address] Dr. Lissett Britton MANUAL DIFF REQ NO Normal [facility] Comment on above: Performed By: #### C BC #### [facility] [address] [place] [address] Dr. Lissett Britton MCH (RBC) [Entitic mass] 31.6 pg Normal 25.9-34.0 [facility] Comment on above: Performed By: #### C BC #### [facility] [address] [place] [address] Dr. Lissett Britton MCHC (RBC) [Mass/Vol] 33.3 g/dL Normal 29.9-35.2 [facility] Comment on above: Performed By: #### C BC #### [facility] [address] [place] [address] Dr. Lissett Britton MCV (RBC) [Entitic vol] 94.8 fL Critically high 80.0-94.0 [facility] Comment on above: Performed By: #### C BC #### [facility] [address] [place] [address] Dr. Lissett Britton MONO # 0.4 103/ul Normal 0.3-0.8 [facility] Comment on above: Performed By: #### C BC #### [facility] [address] [place] [address] Dr. Lissett Britton Monocytes/100 WBC (Bld) 8.6 % Normal 1.7-12.0 [facility] Comment on above: Performed By: #### C BC #### [facility] [address] [place] [address] Dr. Lissett Britton NEUT # 2.3 103/ul Normal 1.4-6.5 [facility] Comment on above: Performed By: #### C BC #### [facility] [address] [place] [address] Dr. Lissett Britton Neutrophils/100 WBC (Bld) 48.0 % Normal 43.0-75.0 [facility] Comment on above: Performed By: #### C BC #### [facility] [address] [place] [address] Dr. Lissett Britton Platelet mean volume (Bld) [Entitic vol] 9.0 fL Critically low 9.5-13.5 [facility] Comment on above: Performed By: #### C BC #### [facility] [address] [place] [address] Dr. Lissett Britton PLT 157 103/ul Normal 150-450 [facility] Comment on above: Performed By: #### C BC #### [facility] [address] [place] [address] Dr. Lissett Britton RBC 4.59 106/ul Critically low 4.70-6.10 [facility] Comment on above: Performed By: #### C BC #### [facility] [address] [place] [address] Dr. Lissett Britton WBC 4.9 103/ul Normal 4.0-11.0 [facility] Comment on above: Performed By: #### C BC #### [facility] [address] [place] [address] Dr. Lissett Britton CRPon 02-07-2022 CRP [Mass/Vol] mg/L Normal <=1.0 [facility] Comment on above: Performed By: #### C RP #### [facility] [address] [place] [address] Dr. Lissett Britton PROTIMEon 02-07-2022 INR Coag (PPP) [Relative time] 0.96 {INR} Normal [facility] Comment on above: Performed By: #### P TT, PT #### [facility] [address] [place] [address] Dr. Lissett Britton INR GUIDELINES SEE BELOW Normal [facility] Comment on above: Result Comment: ROSENDO RED INR: 2.0 - 3.0 CONDITIONS NOT LISTED BELOW 2.5 - 3.5 FOR PROSTHETIC HEART VALVE REPLACEMENT 2.5 - 3.5 RECURRENT THROMBOSIS Performed By: #### P TT, PT #### [facility] [address] [place] [address] Dr. Lissett Britton PT Coag (PPP) [Time] 10.4 s Normal 9.0-11.6 [facility] Comment on above: Performed By: #### P TT, PT #### [facility] [address] [place] [address] Dr. Lissett Britton PTTon 02-07-2022 aPTT Coag (Bld) [Time] 26.9 s Normal 22.3-36.2 [facility] Comment on above: Performed By: #### P TT, PT #### [facility] [address] [place] [address] Dr. Lissett Britt[facility] 14 mm/hr Normal <=20 [facility] Comment on above: Performed By: #### S EDR #### [facility] [address] [place] [address] Dr. Lissett Britton *ANAEROBIC CULTUREon 022 *ANAEROBIC CULTURE Clinical Report: (D) Specimen: SWAB Collected: 12/16/2021 09:00 Status: Final Last Updated: 12/21/2021 08:31 ISO (Final) No Anaerobes Isolated Day 5 Normal [facility] Comment on above: Performed By: #### 3 0312 #### [facility] [address] [place] [address], [facility] *BODY FLUID CULTUREon 2021 *BODY FLUID CULTURE Clinical Report: (D) Specimen/Source: FLUID/HIP Collected: 12/16/2021 09:00 Status: Final Last Updated: 12/19/2021 06:53 (1) L. HIP GRAM (Final) Quantity Not Sufficient ISO (Final) Enterococcus faecalis Light Growth Results called. Read back by Dr. Cano (Ortho) 11:15 a.m. 12/18/21 ISOLATE: Enterococcus faecalis CONSUELO (mcg/ml) AMPICILLIN (AM) 1 Susceptible VANCOMYCIN (VA) 1 Susceptible Normal [facility] Comment on above: Order Comment: Florence Witt Performed By: #### 3 0318 #### [address] ASPIRATION LARGE JOINTon ASPIRATION LARGE JOINT [facility] Department of Radiology [address] [place] [id number] Patient Name: JHONATHAN AGUILAR : 1945 [...] report. Electronically signed: Rosemary Shane. Transcribed by: [email or web address], User Resident: ROSEMARY MORA Electronically Signed by: ROSEMARY SHANE @ 12/16/2021 11:09 AM I personally read this/these film(s) with this resident Normal [facility] Comment on above: Order Comment: , Joshua ointment Date: 12/16/2021 , Body Part: Hip , Side: LEFT , Appointment Date: 12/16/2021 , Body Part: Hip , Side: LEFT HIP LEFT 1 OR 2 VWS WITH PEL VISon 12-03-2021 HIP LEFT 1 OR 2 VWS WITH PELVIS [facility] Department of Radiology [address] [place] [id number] Patient Name: JHONATHAN AGUILAR : 1945 [...] report. Electronically signed: Karuna Seymour. Transcribed by: [email or web address], User Resident: SAW MORA Electronically Signed by: KARUNA SEYMOUR @ 12/03/2021 03:03 PM I personally read this/these film(s) with this resident Normal [facility] Comment on above: Order Comment: Evalu ate C REACTIVE PROTEINon 022 CRP [Mass/Vol] 37.5 mg/L High 0.0-7.0 [facility] Comment on above: Performed By: #### 6 1405 #### [facility] [address] CBC W/DIFFon 11-29-2021 ABS IMM GRANS 0.0 10*3/uL Normal 0.0-0.2 [facility] Comment on above: Performed By: #### 5 0103, [id number] #### [facility] [address] [place] [address], [facility] ABS NEUTROPHILS 4.8 10*3/uL Normal 1.6-7.6 [facility] Comment on above: Performed By: #### 5 0103, [id number] #### [facility] [address] [place] [address], [facility] Basophils (Bld) [#/Vol] 0.0 10*3/uL Normal 0.0-0.2 [facility] Comment on above: Performed By: #### 5 102, 94428 #### [facility] [address] [place] [address], [facility] Basophils/100 WBC (Bld) 0.6 % Normal 0.0-1.0 [facility] Comment on above: Performed By: #### 5 102, 73316 #### [facility] [address] [place] [address], [facility] Eosinophils (Bld) [#/Vol] 0.1 10*3/uL Normal 0.0-0.5 [facility] Comment on above: Performed By: #### 5 102, 78778 #### [facility] [address] [place] [address], [facility] Eosinophils/100 WBC (Bld) 1.0 % Normal 0.0-6.0 [facility] Comment on above: Performed By: #### 5 102, 84806 #### [facility] [address] Erythrocyte distribution width (RBC) [Ratio] 14.4 % Normal 11.5-15.0 [facility] Comment on above: Performed By: #### 5 102, 46172 #### [facility] [address] [place] [address], [facility] Hematocrit (Bld) [Volume fraction] 42.8 % Normal 39.0-50.0 [facility] Comment on above: Performed By: #### 5 102, 46805 #### [facility] [address] [place] [address], [facility] Hemoglobin (Bld) [Mass/Vol] 14.6 g/dL Normal 13.0-17.0 [facility] Comment on above: Performed By: #### 102, 66000 #### [facility] [address] [place] [address], [facility] IMM PLATELET FRAC 7.5 % High 0.8-6.3 [facility] Comment on above: Performed By: #### 5 102, 40231 #### [facility] [address] [facility]. [address] IMMATURE GRANS 0.3 % Normal 0.0-1.0 [facility] Comment on above: Performed By: #### 5 102, 78408 #### [facility] [address] [facility]. [address] Lymphocytes (Bld) [#/Vol] 1.5 10*3/uL Normal 1.2-4.0 [facility] Comment on above: Performed By: #### 5 102, [address]8701 #### [facility] [address] Lymphocytes/100 WBC (Bld) 21.6 % Normal 20.0-45.0 [facility] Comment on above: Performed By: #### 5 102, [address] #### [facility] [address] MCH (RBC) [Entitic mass] 31.7 pg Normal 27.0-33.0 [facility] Comment on above: Performed By: #### 5 102, 99220 #### [facility] [address] [facility]. [address] MCHC (RBC) [Mass/Vol] 34.1 g/dL Normal 32.0-35.0 [facility] Comment on above: Performed By: #### 5 102, 92912 #### [facility] [address] [place] [address], [facility] MCV (RBC) [Entitic vol] 93.0 fL Normal 82.0-98.0 [facility] Comment on above: Performed By: #### 5 102, 16676 #### [facility] [address] [place] [address], [facility] Monocytes (Bld) [#/Vol] 0.4 10*3/uL Normal 0.1-1.0 [facility] Comment on above: Performed By: #### 5 102, 09116 #### [facility] [address] [place] [id number], [facility] MONOS 6.2 % Normal 5.0-12.0 [facility] Comment on above: Performed By: #### 5 102, 52204 #### [facility] [address] [place] [id number], [facility] Neutrophils/100 WBC (Bld) 70.3 % Normal 40.0-72.0 [facility] Comment on above: Performed By: #### 5 102, 86477 #### [facility] [address] [place] [id number], [facility] Nucleated RBC/100 WBC (Bld) [Ratio] 0 % Normal 0-0 [facility] Comment on above: Performed By: #### 5 102, 55978 #### [facility] [address] [place] [address], [facility] PLAT CNT 124 10*3/uL Low 150-400 [facility] Comment on above: Performed By: #### 5 102, 63421 #### [facility] [address] [place] [address], [facility] RBC (Bld) [#/Vol] 4.60 10*6/uL Normal 4.20-5.70 [facility] Comment on above: Performed By: #### 5 102, 30218 #### [facility] [address] [place] [id number], [facility] WBC (Bld) [#/Vol] 6.82 10*3/uL Normal 4.00-10.60 [facility] Comment on above: Performed By: #### 5 102, 77384 #### [facility] [address] [place] [address], [facility] CT PELVIS WO CONTRASTon 11-16 CT PELVIS WO CONTRAST [facility] Department of Radiology [address] [place] [address] Patient Name: JHONATHAN AGUILAR : 1945 Sex: M Age: Race: White Pt. Location: 84 Patient Status: O Ordered Date: 11/29/2021 11:55:00 AM Completed Date: 11/29/2021 01:53 PM Requesting Provider: JAXSON RUDOLPH Attending Provider: JAXSON RUDOLPH Report Copy To: UDAY WILSON Signs & Symptoms: M25.552 Pain in left hip I10 History: Missy Call results to [id number] PT to go [...] details. Electronically signed: Myriam Haas. Transcribed by: [email or web address], User Resident: Electronically Signed by: MYRIAM HAAS @ 11/29/2021 02:00 PM Normal [facility] Comment on above: Order Comment: , Hei ght (ft.): 5 ft 10 in , Weight (lbs): 206 , Height (ft.): 5 ft 10 in , Weight (lbs): 206 , , , Ordering Provider - JAXSON RUDOLPH MD , SEDIMENTATION RATEon 022 SED RATE 10 mm/hr Normal 0-10 [facility] Comment on above: Performed By: #### 5 0103, 24090 #### [address] [place] [address], [facility] Vital Signs Date Time Vital Sign Value Performing Clinician Facility 02-20-2024 08:49-0400 Body height 177.8 cm MD Miguelito Peres Work Phone: [facility] 02-20-2024 08:49-0400 Body weight 97.52 kg MD Miguelito Peres Work Phone: [facility] 01-30-2024 09:32-0400 Body height 177.8 cm MD Miguelito Peres Work Phone: [facility] 01-30-2024 09:32-0400 Body mass index (BMI) [Ratio] 30.3 kg/m2 MD Miguelito Peres Work Phone: [facility] 01-30-2024 09:32-0400 Body weight 96 kg MD Miguelito Peres Work Phone: [facility] 12-12-2023 08:54-0400 Body height 177.8 cm MD Miguelito Peres Work Phone: [facility] 12-12-2023 08:54-0400 Body mass index (BMI) [Ratio] 30.5 kg/m2 MD Miguelito Peres Work Phone: [facility] 12-12-2023 08:54-0400 Body weight 96.61 kg MD Miguelito Peres Work Phone: [facility] 12-11-2023 08:46-0400 Blood Pressure Location [facility] 12-11-2023 08:46-0400 Body temperature 98.42 [degF] [facility] 12-11-2023 08:46-0400 Diastolic blood pressure 63 mm[Hg] [facility] 12-11-2023 08:46-0400 Heart rate 68 /min [facility] 12-11-2023 08:46-0400 Respiratory rate 16 /min [facility] 12-11-2023 08:46-0400 Systolic blood pressure 128 mm[Hg] [facility] 09-15-2023 08:53-0500 Blood Pressure Location [facility] 09-15-2023 08:53-0500 Body temperature 97.16 [degF] [facility] 09-15-2023 08:53-0500 Diastolic blood pressure 78 mm[Hg] [facility] 09-15-2023 08:53-0500 Heart rate 74 /min [facility] 09-15-2023 08:53-0500 Systolic blood pressure 128 mm[Hg] [facility] 08-28-2023 08:58-0500 Blood Pressure Location [facility] 08-28-2023 08:58-0500 Diastolic blood pressure 79 mm[Hg] [facility] 08-28-2023 08:58-0500 Heart rate 74 /min [facility] 08-28-2023 08:58-0500 Respiratory rate 16 /min [facility] 08-28-2023 08:58-0500 Systolic blood pressure 135 mm[Hg] [facility] 08-09-2023 09:43-0500 Body temperature 97 [degF] IJEOMA Ruiz MD Work Phone: [facility] 08-09-2023 09:43-0500 Body weight 96.62 kg IJEOMA Ruiz MD Work Phone: [facility] 08-09-2023 09:43-0500 Diastolic blood pressure 73 mm[Hg] IJEOMA Ruiz MD Work Phone: [facility] 08-09-2023 09:43-0500 Heart rate 58 /min IJEOMA Ruiz MD Work Phone: [facility] 08-09-2023 09:43-0500 Respiratory rate 16 /min IJEOMA Ruiz MD Work Phone: [facility] 08-09-2023 09:43-0500 SaO2% (BldA) [Mass fraction] 98 % IJEOMA Ruiz MD Work Phone: [facility] 08-09-2023 09:43-0500 Systolic blood pressure 147 mm[Hg] IJEOMA Ruiz MD Work Phone: [facility] 05-29-2023 08:52-0400 Body temperature 96.69 [degF] IJEOMA Ruiz MD Work Phone: [facility] 05-29-2023 08:52-0400 Body weight 95.25 kg IJEOMA Ruiz MD Work Phone: [facility] 05-29-2023 08:52-0400 Diastolic blood pressure 71 mm[Hg] IJEOMA Ruiz MD Work Phone: [facility] 05-29-2023 08:52-0400 Heart rate 72 /min IJEOMA Ruiz MD Work Phone: [facility] 05-29-2023 08:52-0400 Respiratory rate 18 /min IJEOMA Ruiz MD Work Phone: [facility] 05-29-2023 08:52-0400 SaO2% (BldA) [Mass fraction] 97 % IJEOMA Ruiz MD Work Phone: [facility] 05-29-2023 08:52-0400 Systolic blood pressure 144 mm[Hg] IJEOMA Ruiz MD Work Phone: [facility] 05-23-2023 08:35-0400 Body temperature 97.5 [degF] IJEOMA Ruiz MD Work Phone: [facility] 05-23-2023 08:35-0400 Body weight 93.89 kg IJEOMA Ruiz MD Work Phone: [facility] 05-23-2023 08:35-0400 Diastolic blood pressure 74 mm[Hg] IJEOMA Ruiz MD Work Phone: [facility] 05-23-2023 08:35-0400 Heart rate 70 /min IJEOMA Ruiz MD Work Phone: [facility] 05-23-2023 08:35-0400 Respiratory rate 16 /min IJEOMA Ruiz MD Work Phone: [facility] 05-23-2023 08:35-0400 SaO2% (BldA) [Mass fraction] 98 % IJEOMA Ruiz MD Work Phone: [facility] 05-23-2023 08:35-0400 Systolic blood pressure 165 mm[Hg] IJEOMA Ruiz MD Work Phone: [facility] 05-16-2023 08:41-0400 Body temperature 97 [degF] IJEOMA Ruiz MD Work Phone: [facility] 05-16-2023 08:41-0400 Body weight 94.8 kg IJEOMA Ruiz MD Work Phone: [facility] 05-16-2023 08:41-0400 Heart rate 59 /min IJEOMA Ruiz MD Work Phone: [facility] 05-16-2023 08:41-0400 Respiratory rate 16 /min IJEOMA Ruiz MD Work Phone: [facility] 05-16-2023 08:41-0400 SaO2% (BldA) [Mass fraction] 98 % IJEOMA Ruiz MD Work Phone: [facility] 05-08-2023 08:44-0400 Body temperature 97.39 [degF] IJEOMA Ruiz MD Work Phone: [facility] 05-08-2023 08:44-0400 Body weight 93.89 kg IJEOMA Ruiz MD Work Phone: [facility] 05-08-2023 08:44-0400 Diastolic blood pressure 84 mm[Hg] IJEOMA Ruiz MD Work Phone: [facility] 05-08-2023 08:44-0400 Heart rate 68 /min IJEOMA Ruiz MD Work Phone: [facility] 05-08-2023 08:44-0400 Respiratory rate 18 /min IJEOMA Ruiz MD Work Phone: [facility] 05-08-2023 08:44-0400 SaO2% (BldA) [Mass fraction] 97 % IJEOMA Ruiz MD Work Phone: [facility] 05-08-2023 08:44-0400 Systolic blood pressure 172 mm[Hg] IJEOMA Ruiz MD Work Phone: [facility] 05-01-2023 09:18-0400 Body temperature 96.69 [degF] IJEOMA Ruiz MD Work Phone: [facility] 05-01-2023 09:18-0400 Body weight 94.8 kg IJEOMA Ruiz MD Work Phone: [facility] 05-01-2023 09:18-0400 Diastolic blood pressure 80 mm[Hg] IJEOMA Ruiz MD Work Phone: [facility] 05-01-2023 09:18-0400 Heart rate 61 /min IJEOMA Ruiz MD Work Phone: [facility] 05-01-2023 09:18-0400 Respiratory rate 18 /min IJEOMA Ruiz MD Work Phone: [facility] 05-01-2023 09:18-0400 SaO2% (BldA) [Mass fraction] 98 % IJEOMA Ruiz MD Work Phone: [facility] 05-01-2023 09:18-0400 Systolic blood pressure 158 mm[Hg] IJEOMA Ruiz MD Work Phone: [facility] 04-05-2023 13:51-0400 Body height 181 cm IJEOMA Ruiz MD Work Phone: [facility] 04-05-2023 13:51-0400 Body temperature 97.5 [degF] IJEOMA Ruiz MD Work Phone: [facility] 04-05-2023 13:51-0400 Body weight 94.8 kg IEJOMA Ruiz MD Work Phone: [facility] 04-05-2023 13:51-0400 Diastolic blood pressure 89 mm[Hg] IJEOMA Ruiz MD Work Phone: [facility] 04-05-2023 13:51-0400 Heart rate 78 /min IJEOMA Ruiz MD Work Phone: [facility] 04-05-2023 13:51-0400 Respiratory rate 18 /min IJEOMA Ruiz MD Work Phone: [facility] 04-05-2023 13:51-0400 SaO2% (BldA) [Mass fraction] 98 % IJEOMA Ruiz MD Work Phone: [facility] 04-05-2023 13:51-0400 Systolic blood pressure 145 mm[Hg] IJEOMA Ruiz MD Work Phone: [facility] 03-27-2023 09:46-0400 Blood Pressure Location German WESTFALL [facility] 03-27-2023 09:46-0400 Diastolic blood pressure 88 mm[Hg] German WESTFALL [facility] 03-27-2023 09:46-0400 Heart rate 90 /min German WESTFALL [facility] 03-27-2023 09:46-0400 Respiratory rate 16 /min German WESTFALL [facility] 03-27-2023 09:46-0400 Systolic blood pressure 138 mm[Hg] German WESTFALL [facility] 03-01-2023 09:02-0400 Blood Pressure Location German [facility]FALL [facility] 03-01-2023 09:02-0400 Diastolic blood pressure 73 mm[Hg] German WESTFALL [facility] 03-01-2023 09:02-0400 Heart rate 63 /min German WESTFALL [facility] 03-01-2023 09:02-0400 Systolic blood pressure 134 mm[Hg] German WESTFALL [facility] 08-24-2021 10:00-0500 Body height 180.34 cm Winter Villalobos Other [employer] Other 08-24-2021 10:00-0500 Body mass index (BMI) [Ratio] 29.01 kg/m2 Winter Villalobos Other [employer] Other 08-24-2021 10:00-0500 Body weight 94.35 kg Winter Villalobos Other [employer] Other 08-24-2021 10:00-0500 Diastolic blood pressure 72 mm[Hg] Winter Villalobos Other [employer] Other 08-24-2021 10:00-0500 Systolic blood pressure 138 mm[Hg] Winter Villalobos Other [facility] Other Encounters Encounter Date Encounter Type Care Provider Facility Start: 01-21-2025 ambulatory Marlagabriela Davenportab Facility: [facility] Tanesha Start: 07-01-2024 ambulatory German WESTFALL Jesica ty:[facility] Start: 02-23-2024 End: 02-23-2024 ambulatory Jennifer RUIZ Facility:[facility] Start: 02-22-2024 End: 02-22-2024 ambulatory CAIT Perdomo MATILDE Not Available Start: 02-20-2024 End: 02-20-2024 Patient encounter procedure MD Miguelito Peres Work Phone: [facility] Work Phone: Start: 02-20-2024 End: 02-20-2024 ambulatory MD Miguelito Peres Work Phone: [facility] Work Phone: Start: 02-19-2024 End: 02-19-2024 ambulatory Miguelito Peres Facility:[facility] Margaret torres Start: 02-16-2024 Telephone encounter G Kanu Ruiz MD Work Phone: Radiation Oncology Comment on above: Orders Start: 02-15-2024 Telephone encounter G Kanu Ruiz MD Work Phone: Radiation Oncology Comment on above: Orders Start: 02-15-2024 End: 02-15-2024 ambulatory MEHRAN LEE Not Available Start: 01-30-2024 End: 01-30-2024 Patient encounter procedure MD Miguelito Peres Work Phone: [facility] Work Phone: Start: 01-01-2024 End: 01-01-2024 ambulatory MD Miguelito Peres Work Phone: [facility] Work Phone: Start: 01-01-2024 End: 01-01-2024 Patient encounter procedure MD Miguelito Peres Work Phone: [facility] Work Phone: Start: 12-14-2023 End: 12-14-2023 ambulatory CAIT CLAYTON Not Available Start: 12-12-2023 End: 12-12-2023 ambulatory MD Miguelito Peres Work Phone: [facility] Work Phone: Start: 12-12-2023 End: 12-12-2023 Patient encounter procedure MD Miguelito Peres Work Phone: [facility] Work Phone: Start: 12-11-2023 End: 12-11-2023 Lab Drop off German WESTFALL [facility] Start: 12-11-2023 End: 12-11-2023 ambulatory German WESTFALL Facility:[facility] Start: 12-11-2023 End: 12-11-2023 Patient encounter procedure German WESTFALL [facility] Start: 12-08-2023 End: 12-08-2023 ambulatory MD Miguelito Peres Work Phone: [facility] [place] Work Phone: Start: 12-08-2023 End: 12-08-2023 Patient encounter procedure MD Miguelito Peres Work Phone: [facility] Work Phone: Start: 12-01-2023 End: 12-01-2023 ambulatory Marla Whitfield Facility:[facility] Margaret torres Start: 11-09-2023 End: 11-09-2023 ambulatory MELLY MATA [facility] Start: 10-23-2023 End: 10-24-2023 ambulatory JUAN RAMON GODFREY [facility] Start: 10-05-2023 End: 10-05-2023 ambulatory CAIT CLAYTON Not Available Start: 09-15-2023 End: 09-15-2023 ambulatory Germanshane WESTFALL Facility:[facility] Start: 09-15-2023 End: 09-15-2023 Patient encounter procedure German R MALOU [facility] Tanesha Start: 09-07-2023 End: 09-07-2023 ambulatory Jennifer RUIZ Facility:[facility] Start: 08-28-2023 End: 08-28-2023 Patient encounter procedure German R WESTFALL [facility] Start: 08-28-2023 End: 08-28-2023 ambulatory Germanshane WESTFALL Facility:[facility] Start: 08-24-2023 End: 08-24-2023 ambulatory IJEOMA RUIZ Facility:[facility] Start: 08-09-2023 End: 08-09-2023 ambulatory Jennifer RUIZ Facility:[facility] Start: 08-09-2023 End: 08-09-2023 Patient encounter procedure Jennifer Ruiz MD Work Phone: Radiation Oncology Comment on above: Malignant neoplasm o f prostate (HCC) (Primary Dx) Start: 08-03-2023 End: 08-03-2023 ambulatory German R WESTFALL Facility:[facility] [place] Start: 08-03-2023 End: 08-03-2023 Patient encounter procedure German WESTFALL [facility] Start: 08-02-2023 End: 08-02-2023 ambulatory German Darrian WESTFALL Facility:[facility] Start: 08-02-2023 End: 08-02-2023 Patient encounter procedure German WESTFALL [facility] [place] Start: 07-27-2023 End: 07-27-2023 ambulatory Jennifer RUIZ Facility:[facility] Start: 07-27-2023 End: 07-27-2023 Patient encounter procedure Jennifer Ruiz MD Work Phone: Radiation Oncology Comment on above: Malignant neoplasm o f prostate (HCC) (Primary Dx) Start: 07-27-2023 End: 07-27-2023 ambulatory German WESTFALL Facility::[id number] Start: 07-17-2023 Patient encounter procedure Jennifer Ruiz MD Work Phone: [facility] Start: 07-17-2023 Radiation Oncology Note Jennifer Ruiz MD Work Phone: Radiation Oncology Comment on above: Treatment Planning Start: 07-05-2023 Patient encounter procedure Jennifer Ruiz MD Work Phone: [facility] Start: 07-05-2023 Radiation Oncology Note Jennifer Ruiz MD Work Phone: Radiation Oncology Comment on above: Simulation Note Start: 07-05-2023 End: 07-05-2023 ambulatory Jennifer RUIZ Facility:[facility] Start: 06-02-2023 Patient encounter procedure Jennifer Ruiz MD Work Phone: [facility] Start: 06-02-2023 Radiation Oncology Note Jennifer Ruiz MD Work Phone: Radiation Oncology Comment on above: Completion Note Start: 06-02-2023 End: 06-02-2023 ambulatory Jennifer RUIZ Facility:[facility] Start: 06-01-2023 End: 06-01-2023 ambulatory Jennifer RUIZ Facility:[facility] Start: 05-31-2023 End: 05-31-2023 ambulatory Jennifer RUIZ Facility:[facility] Start: 05-30-2023 End: 05-30-2023 ambulatory Jennifer RUIZ Facility:[facility] Start: 05-29-2023 End: 05-29-2023 Patient encounter procedure Jennifer Ruiz MD Work Phone: Radiation Oncology Comment on above: Malignant neoplasm o f prostate (HCC) (Primary Dx) Start: 05-29-2023 End: 05-29-2023 ambulatory Jennifer RUIZ Facility:[facility] Start: 05-26-2023 End: 05-26-2023 ambulatory Jennifer RUIZ Facility:[facility] Start: 05-25-2023 End: 05-25-2023 ambulatory Jennifer RUIZ Facility:[facility] Start: 05-24-2023 End: 05-24-2023 ambulatory Jennifer RUIZ Facility:[facility] Start: 05-23-2023 End: 05-23-2023 Patient encounter procedure Jennifer Ruiz MD Work Phone: Radiation Oncology Comment on above: Malignant neoplasm o f prostate (HCC) (Primary Dx) Start: 05-23-2023 End: 05-23-2023 ambulatory Jennifer RUIZ Facility:[facility] Start: 05-19-2023 End: 05-19-2023 ambulatory Jennifer RUIZ Facility:[facility] Start: 05-18-2023 End: 05-18-2023 ambulatory Jennifer RUIZ Facility:[facility] Start: 05-17-2023 Patient encounter procedure [facility] Provider [facility] Start: 05-17-2023 End: 05-17-2023 ambulatory Jennifer RUIZ Facility:[facility] Start: 05-16-2023 End: 05-16-2023 Patient encounter procedure Jennifer Ruiz MD Work Phone: Radiation Oncology Comment on above: Malignant neoplasm o f prostate (HCC) (Primary Dx) Start: 05-16-2023 End: 05-16-2023 ambulatory Jennifer RUIZ Facility:[facility] Start: 05-12-2023 End: 05-12-2023 ambulatory Jennifer RUIZ Facility:[facility] Start: 05-10-2023 End: 05-10-2023 ambulatory Jennifer RUIZ Facility:[facility] Start: 05-09-2023 End: 05-09-2023 ambulatory Jennifer RUIZ Facility:[facility] Start: 05-08-2023 End: 05-08-2023 Patient encounter procedure Jennifer Ruiz MD Work Phone: Radiation Oncology Comment on above: Malignant neoplasm o f prostate (HCC) (Primary Dx); Platelets decreased (HCC) Start: 05-08-2023 End: 05-08-2023 ambulatory Jennifer RUIZ Facility:[facility] Start: 05-05-2023 End: 05-05-2023 ambulatory Jennifer RUIZ Facility:[facility] Start: 05-04-2023 End: 05-04-2023 Patient encounter procedure Lab/[facility] Work Phone: Radiation Oncology Comment on above: Malignant neoplasm o f prostate (HCC) (Primary Dx) Start: 05-04-2023 End: 05-04-2023 ambulatory Jennifer RUIZ Facility:[facility] Start: 05-03-2023 End: 05-03-2023 ambulatory Jennifer RUIZ Facility:[facility] Start: 05-02-2023 End: 05-02-2023 ambulatory Jennifer RUIZ Facility:[facility] Start: 05-01-2023 End: 05-01-2023 Patient encounter procedure Jennifer Ruiz MD Work Phone: Radiation Oncology Comment on above: Malignant neoplasm o f prostate (HCC) (Primary Dx) Start: 05-01-2023 End: 05-01-2023 ambulatory Jennifer RUIZ Facility:[facility] Start: 04-28-2023 End: 04-28-2023 ambulatory Jennifer RUIZ Facility:[facility] Start: 04-27-2023 End: 04-27-2023 ambulatory Jennifer RUIZ Facility:[facility] Start: 04-26-2023 End: 04-26-2023 ambulatory Jennifer RUIZ Facility:[facility] Start: 04-26-2023 End: 04-26-2023 Patient encounter procedure Jennifer Ruiz MD Work Phone: Radiation Oncology Comment on above: Malignant neoplasm o f prostate (HCC) (Primary Dx) Start: 04-25-2023 Telephone encounter Jennifer Ruiz MD Work Phone: Radiation Oncology Comment on above: Orders Start: 04-18-2023 End: 04-19-2023 ambulatory Jennifer RUIZ Facility:[facility] Start: 04-18-2023 Patient encounter procedure Jennifer Ruiz MD Work Phone: [facility] Start: 04-18-2023 Radiation Oncology Note G Kanu Ruiz MD Work Phone: Radiation Oncology Comment on above: Simulation Note Start: 04-17-2023 End: 04-17-2023 ambulatory [facility] Start: 04-05-2023 End: 04-05-2023 ambulatory GERMAN WESTFALL Facility:[facility] Start: 04-05-2023 End: 04-05-2023 Patient encounter procedure Jennifer Ruiz MD Work Phone: Radiation Oncology Comment on above: Malignant neoplasm o f prostate (HCC) (Primary Dx) Start: 03-27-2023 End: 03-27-2023 ambulatory German WESTFALL Facility:[facility] Start: 03-27-2023 End: 03-27-2023 Patient encounter procedure [facility] Start: 03-15-2023 End: 03-15-2023 ambulatory German WESTFALL Facility:[facility] [place] Start: 03-15-2023 End: 03-15-2023 ambulatory Marla Whitfield Facility:[facility] Margaret torres Start: 03-07-2023 End: 03-07-2023 ambulatory German WESTFALL Facility:[facility] Start: 03-07-2023 End: 03-07-2023 Patient encounter procedure German WESTFALL [facility] Start: 03-01-2023 End: 03-01-2023 ambulatory German WESTAFLL Facility:[facility] [place] Start: 03-01-2023 End: 03-01-2023 Patient encounter procedure German WESTFALL [facility] [place] Start: 02-15-2023 End: 02-15-2023 Lab Drop off Marla L Roseann [facility] Start: 02-10-2023 End: 02-10-2023 Lab Drop off Marla L Roseann [facility] Start: 12-02-2022 End: 12-03-2022 ambulatory [facility] Start: 10-26-2022 End: 11-26-[address] UDAY WILSON . Facility:[facility] Start: 10-10-2022 End: 10-11-[address] DOCTOR PATEL Facility:[facility] Start: 08-23-2022 End: 08-23-2022 ambulatory MD Uday Wilson Work Phone: [facility] Work Phone: Start: 08-23-2022 End: 08-23-2022 Patient encounter procedure MD Uday Wilson Work Phone: [facility] Start: 07-04-2022 End: 07-05-[address] UDAY WILSON . Facility:[facility] Start: 05-24-2022 End: 05-25-[address] DOCTOR PATEL Facility:[facility] Start: 02-08-2022 End: 02-09-[address] UDAY WILSON . Facility:[facility] Start: 02-07-2022 End: 02-08-[address] UDAY WILSON . Facility:[facility] Start: 08-24-2021 End: 08-24-2021 ambulatory Winter Villalobos Other [facility] Other Start: 08-24-2021 Office outpatient visit 25 minutes Winter Villalobos [facility] Neurosurgery Procedures Date Procedure Procedure Detail Performing Clinician Start: 02-20-2024 XR pre/post mri xray MD Miguelito Peres Work Phone: Start: 02-20-2024 MRI of cervical spin e without contrast MD Miguelito Peres Work Phone: Start: 12-08-2023 X-ray of lumbar spin e, four views MD Miguelito Peres Work Phone: Start: 07-27-2023 Brachytherapy German HURLEY Start: 05-04-2023 Blood count complete auto&auto difrntl wbc G Kanu Ruiz MD Work Phone: Start: 03-07-2023 Transrectal needle b iopsy of prostate German WESTFALL Start: 02-16-2023 Biopsy German CORIN CAZARES Comment on above: Prostate Start: 08-23-2022 X-ray of lumbar spin e, four views MD Uday Wilson Work Phone: Cataract (disorder) German WESTFALL Cyst (disorder) Marla Roseann Comment on above: Excision mid back H/O: artificial joint Winter B raun Other Repair of hip Marla Roseann Surgical procedure Marla Schw ab Comment on above: back at age 4 Plan of Treatment Date Care Activity Detail Author Start: 03-18-2027 Urine microalbumin profile DTaP,Tdap,Td Vaccine (2 - Td or Tdap) [facility] Start: 02-23-2024 End: 02-23-2024 Patient encounter procedure 02/23/2024 8:45 AM EDT Office Visit Radiation Oncology [facility] [place] [address] [facility] [facility] [place] [address] Followup Radiation Oncology Comment on above: Followup Start: 02-16-2024 End: 05-17-2024 Prostate specific Ag [Mass/volume] in Serum or Plasma PROSTATE-SPECIFIC ANTIGEN DIAGNOSTIC Lab Routine Malignant neoplasm of prostate (HCC) Expected: 02/16/2024, Expires: 05/17/2024 [facility] Work Phone: Comment on above: Expected: 02/16/2024 , Expires: 05/17/2024 Start: 01-30-2024 Patient referral [facility] Work Phone: Start: 12-12-2023 Patient referral [facility] Work Phone: Start: 09-18-2023 Advance Directive Discussion Advance Directive Discussion [facility] Start: 09-18-2023 Behavioral Health Screening Behavioral Health Screening [facility] Start: 09-08-2023 End: 12-08-2023 Prostate specific Ag [Mass/volume] in Serum or Plasma PSA/PROSTSPECAG DIAG Lab Routine Malignant neoplasm of prostate (HCC) Expected: 09/08/2023, Expires: 12/08/2023 [facility] Work Phone: Comment on above: Expected: 09/08/2023 , Expires: 12/08/2023 Start: 05-19-2023 Covid-19 Vaccine () Covid-19 Vaccine () [facility] Start: 05-19-2023 Influenza vaccination C [facility] Start: 05-04-2023 End: 07-04-2023 CBC W Auto Differential panel - Blood CBC + DIFF Lab Routine Malignant neoplasm of prostate (HCC) Expected: 05/04/2023, Expires: 07/04/2023 [facility] Work Phone: Comment on above: Expected: 05/04/2023 , Expires: 07/04/2023 Start: 09-18-2022 ADVANCE DIRECTIVE DISCUSSION ADVANCE DIRECTIVE DISCUSSION [facility] Start: 09-18-2022 DEPRESSION ASSESSMENT DEPRESSION ASS ESSMENT [facility] Start: 09-24-2021 COVID-19 VACCINE (4 - Pfizer series) COVID-19 VACCINE (4 - Pfizer series) [facility] Start: 07-10-2020 Shingrix Vaccine (2 of 3) Shingrix Vaccine (2 of 3) [facility] Start: 2012 Pneumococcal Vaccine : 65+ (1 - PCV) Pneumococcal Vaccine: 65+ (1 - PCV) [facility] Start: 2012 PNEUMOCOCCAL: 65+ (1 - PCV) PNEUMOCOCCAL: 65+ (1 - PCV) [facility] Start: 2007 RSV Vaccine (1 - 1-d ose 60+ series) RSV Vaccine (1 - 1-dose 60+ series) [facility] Start: 1997 SHINGRIX VACCINE (1 of 2) SHINGRIX VACCINE (1 of 2) [facility] Start: 1992 COLOGUARD (FIT-DNA) COLOGUARD (FIT-D NA) [facility] Start: 1992 Colonoscopy COLONOSCOPY [facility] Start: 1992 COLORECTAL CANCER SCREENING COLORECTAL CANCER SCREENING [facility] Start: [address] COLONOGRAPHY [facility] Start: 1992 DIABETES SCREEN DIABETES SCREEN [facility] Start: 1992 Diabetes Screening Diabetes Screenin g [facility] Start: 1992 FECAL OCCULT BLOOD FECAL OCCULT BLOO D [facility] Start: 1992 SIGMOIDOSCOPY SIGMOIDOSCOPY [facility] Start: 1982 Lipid 1996 panel - S [place] or Plasma Lipid Screening [facility] Start: 1982 LIPID SCREEN LIPID SCREEN [facility] Start: 1966 Urine microalbumin profile [facility] Start: 1965 HEPATITIS C SCREENING HEPATITIS C [facility] Start: 1965 Hepatitis C screening Hepatitis C [facility] Patient Education Low back pain in adults [facility] Work Phone: Patient referral [facility] Work Phone: [facility] Immunizations Immunization Date Immunization Notes Care Provider Haley dorado 07-21-2023 influenza virus vaccine, unspecified formulation German WESTFALL [facility] 07-26-2022 influenza virus vaccine, unspecified formulation Marla Roseann [facility] 07-30-2021 SARS-CoV-2 (COVID-19 ) mRNA BNT-162b2 vax Marla Roseann [facility] Comment on above: Result Comment: 2022: [id number] 11-10-2020 SARS-CoV-2 (COVID-19 ) mRNA BNT-162b2 vax Marla Roseann [facility] Comment on above: Result Comment: 2022: TPV70 10-20-2020 SARS-CoV-2 (COVID-19 ) mRNA BNT-162k0 vax Marla Roseann [facility] Comment on above: Result Comment: 2022: [id number] 05-15-2020 zoster vaccine, live Marla Sc hwab [facility] 11-13-2019 zoster vaccine, live Marla Sc hwab [facility] 11-06-2019 influenza virus vaccine, unspecified formulation Marla Roseann [facility] 11-21-2018 pneumococcal polysaccharide vaccine, 23 valent Marla Roseann [facility] 08-20-2018 influenza virus vaccine, unspecified formulation Marla Roseann [facility] 06-20-2017 pneumococcal conjuga te vaccine, 13 valent Marla Roseann [facility] 07-13-2016 influenza virus vaccine, unspecified formulation Marla Roseann [facility] 08-08-2014 influenza virus vaccine, unspecified formulation Marla Roseann [facility] 08-07-2013 influenza virus vaccine, unspecified formulation Marla Roseann Marcel[facility] NEGATED: Highlighted row has not occurred!08-27-2020 Fluzone QIV High-Dose 65YR+ MD Uday Wilson Work Phone: [facility] Payers Date Payer Category Payer Medicare [id number] 2017 Medicare HU[employer]NA MEDICARE HU[employer]NA MEDICARE PPO [id number] 2017-Present [phone] [address] [address] [place] [address] PPO [id number] 1959 Medicare [id number] [id number] 1947 Unknown [id number] 2.16.840.1.039082.3.579.2.5 93 1947 Unknown [id number] 2.16.840.1.604958.3.579.2.5 93 1947 Unknown [id number] 2.16.840.1.603121.3.579.2.5 93 1947 Unknown [id number] 2.16.840.1.243347.3.579.2.5 93 1947 Unknown [id number] 2.16.840.1.847618.3.579.2.5 93 1947 Unknown [id number] 2.16.840.1.382507.3.579.2.5 93 1947 Unknown [id number] 2.16.840.1.005082.3.579.2.1 259 1947 Unknown [id number] 2.16.840.1.476888.3.579.2.1 259 1947 Unknown [id number] 2.16.840.1.794475.3.579.2.1 259 1947 Unknown [id number] 2.16.840.1.437861.3.579.2.1 259 1947 Unknown [id number] 2.16.840.1.103466.3.579.2.7 27 1947 Unknown [id number] 2.16.840.1.549543.3.579.2.7 27 1947 Unknown [id number] 2.16.840.1.566090.3.579.2.7 27 1947 Unknown [id number] 2.16.840.1.466523.3.579.2.7 27 1947 Unknown [id number] 2.16.840.1.403360.3.579.2.7 27 1947 Unknown [id number] 2.16.840.1.077728.3.579.2.7 27 1947 Unknown [id number] 2.16.840.1.894061.3.579.2.7 27 1947 Unknown [id number] 2.16.840.1.711703.3.579.2.7 27 1947 Unknown [id number] 2.16.840.1.169860.3.579.2.7 27 1947 Unknown [id number] 2.16.840.1.511080.3.579.2.7 27 1947 Unknown [id number] 2.16.840.1.472937.3.579.2.7 1947 Unknown [id number] 2.16.840.1.588584.3.579.2.7 1947 Unknown [id number] 2.16.840.1.552747.3.579.2.7 1947 Unknown [id number] 2.16.840.1.039202.3.579.2.7 1947 Unknown [id number] 2.16.840.1.912634.3.579.2.7 1947 Unknown [id number] 2.16.840.1.466443.3.579.2.7 1947 Unknown [id number] 2.16.840.1.767408.3.579.2.7 1947 Unknown [id number] 2.16.840.1.948698.3.579.2.7 1947 Unknown [id number] 2.16.840.1.210495.3.579.2.7 Self-pay Self Pay [id number] Unknown [facility] Administration [id number] Social History Date Type Detail Facility Start: 04-05-2023 End: 08-09-2023 [facility] [place] Start: 08-26-2020 End: 08-26-2020 Tobacco smoking status NHIS Ex-smoker (finding) [facility] Start: 1945 Sex Assigned At Male [facility] Start: 09-18-1967 History of tobacco use Current smoke r [facility] Start: 09-18-1965 History of tobacco use Cigarette Smo ker [facility] History of tobacco use Cigar Smoker [facility] Start: 04-05-2023 End: 08-09-2023 Cigarettes smoked current (pack per day) - Reported 0.5 [facility] Start: 04-05-2023 Tobacco use and exposure User of smokeless tobacco [facility] Start: 04-05-2023 End: 09-07-2023 Alcohol intake Ex-drinker (finding) [facility] National Score (1-10 0), lower number is lower risk 61 [facility] Start: 1945 Sex Assigned At Not on file C [facility] Medical Equipment Procedure Code Equipment Code Equipment Origin al Text Equipment Identifier Dates Fusion, spine, lumbar, XLIF STRATOFUSE DBM 10CC FDA Start: 08-26-2020 Fusion, spine, lumbar, XLIF Bone-screw internal spinal fixation system, non-sterile [id number] FDA Start: 08-26-2020 Fusion, spine, lumbar, XLIF Orthopaedic bone screw, non-bioabsorbable, non-sterile [id number] FDA Start: 08-26-2020 Fusion, spine, lumbar, XLIF Orthopaedic bone screw, non-bioabsorbable, non-sterile +[id number] FDA Start: 08-26-2020 Fusion, spine, lumbar, XLIF STRATOFUSE DBM 10CC FDA Start: 08-26-2020 Fusion, spine, lumbar, XLIF Bone-screw internal spinal fixation system, non-sterile [id number] FDA Start: 08-26-2020 Fusion, spine, lumbar, XLIF Bone-screw internal spinal fixation system, non-sterile [id number] FDA Start: 08-26-2020 Fusion, spine, lumbar, XLIF STRATOFUSE DBM 5CC FDA Start: 08-26-2020 Fusion, spine, lumbar, XLIF Spinal fusion graft kit [id number] FDA Start: 08-26-2020 Fusion, spine, lumbar, XLIF Spinal fusion graft kit [id number] FDA Start: 08-26-2020 Fusion, spine, lumbar, XLIF Metallic spinal fusion cage, non-sterile [id number] FDA Start: 08-26-2020 Fusion, spine, lumbar, XLIF Metallic spinal fusion cage, non-sterile [id number] FDA Start: 08-26-2020 Fusion, spine, lumbar, XLIF Metallic spinal fusion cage, non-sterile ()[id number] FDA Start: 08-26-2020 Fusion, spine, lumbar, XLIF [...] XLIF STRATOFUSE DBM 5CC FDA Start: 08-26-2020 Functional Status Date Assessment Result Facility 12-11-2023 Functional Status N/A [facility] 09-15-2023 Functional Status N/A [facility] 08-28-2023 Functional Status N/A [facility] 03-27-2023 Functional Status N/A [facility] 03-07-2023 Functional Status N/A [facility] 03-01-2023 Functional Status N/A [facility] Clinical Notes 08-01-2016 to 02-16-2024 Telephone Encounter - Angela Norris MA - 02/16/2024 1:39 PM EDTTelephone Encounter - Angela Norris MA - 02/16/2024 1:39 PM EDTTelephone Encounter - Dara Russell LPN - 02/15/2024 3:57 PM EDT Note Date & Type Note Facility 02-16-2024 Telephone encounter Note PSA order faxed to [facility]. Angela Norris MA [facility] 02-16-2024 Miscellaneous Notes PSA order faxed to [facility]. Angela Norris MA documented in this encounter [facility] 02-15-2024 Telephone encounter Note Please sign pended PSA order for upcoming follow up. Please fax PSA order to [facility] per patient request. Dara Russell RN [facility] 02-15-2024 Miscellaneous Notes Please sign pended PSA order for upcoming follow up. Please fax PSA order to [facility] per patient request. Dara Russell RN documented in this encounter [facility] 12-11-2023 Hospital Discharge instructions Patient Education 12/11/2023 09:38:45 Prostate Cancer Prostate Cancer The prostate is [...] under a microscope. This is called the Foster score and the total score can range [...] stress of having cancer. General instructions Take ifqk-eai-jcegxwm and prescription medicines only as told by your health care provider. If you have to go to the hospital, notify your cancer specialist (oncologist). Keep all follow-up visits. This is important. Where to find more information [place] [employer]: www.cancer.org [place] Society of Clinical Oncology: www.cancer.net National Cancer [place]: www.cancer.gov Contact a health care provider if: [...] provider. Document Revised: 12/01/2021 Document Reviewed: 12/01/2021 [employer] Patient Education 2022 Soundl.ly. Follow Up Care 09/15/2023 09:43:20 With:MALOU MCGREGOR, German Colmenares, URL Address: [address] [place] [address]- When: Unknown [facility] 11-09-2023 Note Infectious Diseases - clinic Progress [...] with e fecalis and he was on alf augmentin for that and latest cultures from [...] progress note was completed using a voice artifacts conservator system. Every effort was made to ensure accuracy; however, inadvertent computerized artifacts conservator errors may be present. Thank you for allowing us to participate in the care of this patient. Thank you for allowing me to see the patient Please call for any questions or concerns, Melly Mata MD [place] Infectious diseases P:[phone] [facility] 10-23-2023 Note Orthopedic Surgery Subjective Chief [...] BACK SURGERY X2 CARPAL TUNNEL RELEASE Bilateral 2009 [place] [place] GUIDED ASPIRATION OR INJECTION [...] the left hip joint. Dr. Juan Ramon [facility]fery [facility] Nurse orthopedic surgery Adult Reconstruction and Trauma [facility]. [facility] 09-15-2023 Hospital Discharge instructions Patient Education [...] under a microscope. This is called the Foster score and the total score can range from 6 10, indicating how likely it is that the cancer will spread (metastasize) to other parts of the body. The higher the score, the greater the likelihood that the cancer will spread. Foster 6 or lower: This indicates that the cancer cells look similar to normal prostate cells (well differentiated). Ve 7: This indicates that the cancer cells look somewhat similar to normal prostate cells (moderately differentiated). Foster 8, 9, or 10: This indicates that [...] stress of having cancer. General instructions Take cknh-sgn-kujnsdd and prescription medicines only as told by your health care provider. If you have to go to the hospital, notify your cancer specialist (oncologist). Keep all follow-up visits. This is important. Where to find more information [place] [employer]: www.cancer.org [place] Society of Clinical Oncology: www.cancer.net National Cancer [place]: www.cancer.gov Contact a health care provider if: [...] provider. Document Revised: 12/01/2021 Document Reviewed: 12/01/2021 [employer] Patient Education 2022 Soundl.ly. Follow Up Care 03/27/2023 11:11:43 With:MALOU MCGREGOR, German Colmenares, URL Address: [address] [place] [address] [place] [address]- When: Unknown [facility] 09-07-2023 Note HNO ID: [id number] Author: Jennifer Ruiz MD Service: ? Author [...] none Last colonoscopy: na Androgen deprivation: Lupron, Jan PHYSICAL EXAM: BP 144/81 Pulse 66 Temp 36 ?C (96.8 ?F) Resp 16 Wt 96.1 kg (211 lb 13.8 oz) SpO2 99% BMI 29.34 kg/m? KPS: 100 General Appearance: Alert and oriented. No acute distress. Rectal exam is deferred. ASSESSMENT/PLAN: Prostate adenocarcinoma, initial PSA 26.2, biopsy Foster score 4 + 4 = 8 (grade [...] by: Jennifer Ruiz MD cc: Dr. Westfall [facility] 08-28-2023 Hospital Discharge instructions Patient Education 08/28/2023 [...] including vitamins, herbs, eye drops, creams, and lxdo-ruc-vclrung medicines. Any problems you or family members [...] provider tells you to take them. ?Taking fcsp-iha-lopuweu medicines, vitamins, herbs, and supplements. Follow your [...] provider. Document Revised: 12/01/2021 Document Reviewed: 12/01/2021 [employer] Patient Education 2022 Soundl.ly. Follow Up Care 06/20/2023 10:40:19 With:MALOU MCGREGOR, Greman Colmenares, URL Address: [facility] [address], [place] [address]- When:Within 2 Week(s) Comments:appt made for 09/15/23 w/PSA and [place] [facility] 08-24-2023 Note HNO ID: [id number] Author: Jennifer Ruiz MD Service: ? Author Type: Physician Type: Progress Notes Filed: 09/13/2023 12:32 AM Note Text: Patient: Jhonathan Aguilar Date:08/24/2023 [facility] Department of Radiation Oncology [facility] RADIATION ONCOLOGY POST SEED IMPLANT SIMULATION NOTE [...] Electronically Signed KANU RUIZ M.D. :12 AM [facility] 08-09-2023 Note HNO ID: [id number] Author: Jennifer Ruiz MD Service: ? Author Type: Physician Type: Progress Notes Filed: 08/09/2023 10:13 AM Note Text: Radiation Oncology - Follow Up Note PATIENT NAME: Jhonathan Aguilar PATIENT DIAGNOSIS: Prostate adenocarcinoma, initial PSA 26.2, biopsy Foster score 4 + 4 = 8 (grade [...] by: Jennifer Ruiz MD cc: Dr. Westfall [facility] 08-09-2023 History of Present illness Narrative Radiation [...] cc: Dr. Westfall documented in this encounter [facility] 08-09-2023 Nurse Note AUA= 21 documented in this encounter [facility] 07-27-2023 Note HNO ID: [id number] Author: Jennifer Ruiz MD Service: ? Author Type: Physician Type: Progress Notes Filed: 07/27/2023 12:43 PM Note Text: Date: 07/27/23 Facility: [facility] Procedure: prostate transperineal brachytherapy implant Sources: [...] patient identified by name and hospital ID [email or web address]. After anesthesia administered patient placed in dorsal-lithotomy [...] activity seen, results documented. La Ruiz MD [facility] 07-27-2023 History of Present illness Narrative Date: 07/27/23 Facility: [facility] Procedure: prostate transperineal brachytherapy implant Sources: [...] activity seen, results documented. La Ruiz MD [facility] documented in this encounter [facility] 07-20-2023 Note [id number] [facility] 07-17-2023 History of Present illness Narrative JHONATHAN AGUILAR [id number] 07/17/2023 [facility] Department of Radiation Oncology [facility] RADIATION ONCOLOGY BRACHYTHERAPY TREATMENT PLANNING NOTE For [...] LALIT 34:12 PM documented in this encounter [facility] 07-17-2023 Note HNO ID: [id number] Author: Jennifer Ruiz MD Service: ? Author Type: Physician Type: Progress Notes Filed: 07/19/2023 12:34 AM Note Text: JHONATHAN AGUILAR [id number] 07/17/2023 [facility] Department of Radiation Oncology [facility] RADIATION ONCOLOGY BRACHYTHERAPY TREATMENT PLANNING NOTE For [...] Kanu Ruiz M.D. / LALIT 34:12 PM [facility] 07-06-2023 Note HNO ID: [id number] Author: Jennifer Ruiz MD Service: ? Author [...] Visit completed when applicable. Jennifer Ruiz MD [facility] 07-05-2023 History of Present illness Narrative JHONATHAN AGUILAR [id number] 07/05/2023 [facility] Department of Radiation Oncology [facility] RADIATION ONCOLOGY SIMULATION NOTE DATE OF SIMULATION: 07/05/2023 MACHINE: [employer] Focus 500 Diagnosis: 185 (Prostate Gland) AREA:Prostate PATIENT POSITION: Supine CONTRAST: None PROTOCOL: None CONCURRENT THERAPY: None FIXATION DEVICE: UTS Stabilization device by [employer] (SCTE)tron. PROCEDURE: Patient was simulated in exaggerated dorsal lithotomy position. Serial images of the prostate were acquired using TRUS and reconstructed in 3D space. These images were imported into [employer] Prostate planning system where a plan was generated. ASSESSMENT/PLAN: Patient tolerated simulation procedure well. Electronically Signed Kanu Ruiz M.D. / LALIT :18 PM documented in this encounter [facility] 07-05-2023 Note HNO ID: [id number] Author: Jennifer Ruiz MD Service: ? Author Type: Physician Type: Progress Notes Filed: 07/06/2023 12:33 AM Note Text: JHONATHAN GAUILAR [id number] 07/05/2023 [facility] Department of Radiation Oncology [facility] RADIATION ONCOLOGY SIMULATION NOTE DATE OF SIMULATION: 07/05/2023 MACHINE: [employer] Focus 500 Diagnosis: 185 (Prostate Gland) AREA:Prostate PATIENT POSITION: Supine CONTRAST: None PROTOCOL: None CONCURRENT THERAPY: None FIXATION DEVICE: UTS Stabilization device by [employer] (SCTE)tron. PROCEDURE: Patient was simulated in exaggerated dorsal lithotomy position. Serial images of the prostate were acquired using TRUS and reconstructed in 3D space. These images were imported into [employer] Prostate planning system where a plan was generated. ASSESSMENT/PLAN: Patient tolerated simulation procedure well. Electronically Signed Kanu Ruiz M.D. / JRS :18 PM [facility] 06-02-2023 History of Present illness Narrative [facility] RADIATION ONCOLOGY - COMPLETION [...] NRS :31 PM documented in this encounter [facility] 06-02-2023 Note HNO ID: [id number] Author: Jennifer Ruiz MD Service: ? Author Type: Physician Type: Progress Notes Filed: 06/08/2023 12:34 AM Note Text: [facility] Radiation Oncology Department RADIATION ONCOLOGY - COMPLETION [...] :31 PM Electronically Signed cc: Dr. Westfall [facility] 05-29-2023 Note HNO ID: [id number] Author: Jennifer Ruiz MD Service: ? Author [...] Discussed upcoming brachytherapy boost. Jennifer Ruiz MD [facility] 05-29-2023 History of Present illness Narrative Radiation [...] Jennifer Ruiz MD documented in this encounter [facility] 05-23-2023 Note HNO ID: [id number] Author: Jennifer Ruiz MD Service: ? Author Type: Physician Type: Progress Notes Filed: 05/23/2023 8:56 AM Note Text: Radiation Oncology - On Treatment Review (OTR) Note PATIENT NAME: Jhonathan Aguilar PATIENT DIAGNOSIS: Prostate adenocarcinoma, initial PSA 26.2, biopsy Foster score 4 + 4 = 8 (grade [...] radiation treatment as planned. Jennifer Ruiz MD [facility] 05-23-2023 History of Present illness Narrative Radiation [...] Jennifer Ruiz MD documented in this encounter [facility] 05-16-2023 Note HNO ID: [id number] Author: Jennifer Ruiz MD Service: ? Author [...] fx SUBJECTIVE: No new problems. PHYSICAL EXAM: 05/16/23840 Pulse: (!) 59 Resp: 16 Temp: 36.1 [...] radiation treatment as planned. Jennifer Ruiz MD [facility] 05-16-2023 History of Present illness Narrative Radiation [...] fx SUBJECTIVE: No new problems. PHYSICAL EXAM: 05/16/23840 Pulse: (!) 59 Resp: 16 Temp: 36.1 [...] Jennifer Ruiz MD documented in this encounter [facility] 05-08-2023 Note HNO ID: [id number] Author: Jennifer Ruiz MD Service: ? Author Type: Physician Type: Progress Notes Filed: 05/08/2023 8:53 AM Note Text: Radiation Oncology - On Treatment Review (OTR) Note PATIENT NAME: Jhonathan Aguilar PATIENT DIAGNOSIS: Prostate adenocarcinoma, initial PSA 26.2, biopsy Foster score 4 + 4 = 8 (grade [...] radiation treatment as planned. Jennifer Ruiz MD [facility] 05-08-2023 History of Present illness Narrative Radiation [...] Jennifer Ruiz MD documented in this encounter [facility] 05-04-2023 Nurse Note Jhonathan Aguilar presents in office today for: Lab Draw only . Ordering Provider: Kanu Ruiz M.D. Test (s) ordered: CBC Method for obtaining blood: Phlebotomy was performed, accessing right antecubital vein. Needle removed intact. Dressing secured. Patient denies discomfort, dizziness, light-headedness or weakness and left the department without assist. Rosa Lau RN documented in this encounter [facility] 05-01-2023 Note HNO ID: [id number] Author: Jennifer Ruiz MD Service: ? Author Type: Physician Type: Progress Notes Filed: 05/01/2023 9:26 AM Note Text: Radiation Oncology - On Treatment Review (OTR) Note PATIENT NAME: Jhonathan Aguilar PATIENT DIAGNOSIS: Prostate adenocarcinoma, initial PSA 26.2, biopsy Foster score 4 + 4 = 8 (grade [...] radiation treatment as planned. Jennifer Ruiz MD [facility] 05-01-2023 History of Present illness Narrative Radiation [...] Jennifer Ruiz MD documented in this encounter [facility] 04-26-2023 History of Present illness Narrative [...] Jennifer Ruiz MD documented in this encounter [facility] 04-26-2023 Note HNO ID: [id number] Author: Jennifer Ruiz MD Service: ? Author Type: Physician Type: Progress Notes Filed: 05/01/2023 9:27 AM Note Text: Radiation Oncology - On Treatment Review (OTR) Note PATIENT NAME: Jhonathan Aguilar PATIENT DIAGNOSIS: Prostate adenocarcinoma, initial PSA 26.2, biopsy Foster score 4 + 4 = 8 (grade [...] Continue radiation as prescribed. Jennifer Ruiz MD [facility] 04-25-2023 Miscellaneous Notes CBC order, during second week of radiation therapy, is pending your approval. Dara Russell LPN documented in this encounter [facility] 04-18-2023 History of Present illness Narrative JHONATHAN AGUILAR [id number] 04/18/2023 [facility] Radiation Oncology Department SIMULATION NOTE DATE OF SIMULATION: 04/18/2023 THERAPIST: Charisse Celaya MACHINE: [employer] DIAGNOSIS: Malignant neoplasm of [id number] AREA: PELVIS CONTRAST: None Consent in Epic: [...] NRS 37:23 AM documented in this encounter [facility] 04-18-2023 Note HNO ID: [id number] Author: Jennifer Ruiz MD Service: ? Author Type: Physician Type: Progress Notes Filed: 04/28/2023 12:15 PM Note Text: JHONATHAN AGUILAR [id number] 04/18/2023 [facility] Department of Radiation Oncology Treatment Planning Note [...] Electronically Signed Kanu Ruiz M.D. 2:11 PM [facility] 04-18-2023 Note HNO ID: [id number] Author: Jennifer Ruiz MD Service: ? Author Type: Physician Type: Progress Notes Filed: 04/20/2023 12:33 AM Note Text: JHONATHAN AGUILAR [id number] 04/18/2023 [facility] Radiation Oncology Department SIMULATION NOTE DATE OF SIMULATION: 04/18/2023 THERAPIST: Charisse Celaya MACHINE: [employer] DIAGNOSIS: Malignant neoplasm of [id number] AREA: PELVIS CONTRAST: None Consent in Epic: [...] Kanu Ruiz M.D. / RACHID 37:23 AM [facility] 04-17-2023 Note Infectious Diseases - clinic Progress [...] with e fecalis and he was on alf augmentin for that and latest cultures from [...] progress note was completed using a voice artifacts conservator system. Every effort was made to ensure accuracy; however, inadvertent computerized artifacts conservator errors may be present. Thank you for allowing us to participate in the care of this patient. Thank you for allowing me to see the patient Please call for any questions or concerns, Melly Mata MD [place] Infectious diseases P:[phone] [facility] 04-05-2023 Nurse Note AUA 13 Rosa Lau RN documented in this encounter [facility] 04-05-2023 Note HNO ID: [id number] Author: Jennifer Ruiz MD Service: ? Author Type: Physician Type: Progress Notes Filed: 04/05/2023 3:51 PM Note Text: Radiation Oncology - Prostate Cancer New Patient/Consult Note PATIENT NAME: Jhonathan Aguilar PATIENT REQUESTING PROVIDER: Dr. Westfall DIAGNOSIS: 77 year old male with prostate adenocarcinoma, initial PSA 26.2, biopsy Foster score 4 + 4 = 8 (grade [...] and right lateral base cores, in addition Foster 74+3 from right base right mid right [...] prostate. Otherwise exce (more content not included)... [facility] 07-19-2023 History of Present illness Narrative Radiation Oncology - Prostate Cancer New Patient/Consult Note PATIENT NAME: Jhonathan Aguilar PATIENT REQUESTING PROVIDER: Dr. Westfall DIAGNOSIS: 77 year old male with prostate adenocarcinoma, initial PSA 26.2, biopsy Foster score 4 + 4 = 8 (grade [...] 07, 2023 revealed: 42 cm gland. Adenocarcinoma Foster 8 (4+4) from the left base left lateral mid left lateral apical and right lateral base cores, in addition Foster 74+3 from right base right mid right [...] 1 is the provider ID). 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 BINDER GIVEN Signed by: Rosa Lau [...] Encounter Status:Closed by ROSA LAU on 04/10/23 [place] [address]-10-2023 Hospital Discharge instructions Patient Education 03/27/2023 10:32:15 [...] advanced cancer. Where to find more information [place] [employer]: www.cancer.org National Cancer [place]: www.cancer.gov Contact a health care provider if: [...] provider. Document Revised: 12/16/2021 Document Reviewed: 12/16/2021 [employer] Patient Education 2022 Soundl.ly. 03/27/2023 10:32:10 Brachytherapy for Prostate Cancer Brachytherapy [...] including vitamins, herbs, eye drops, creams, and ctid-tvl-yghcpid medicines. Any problems you or family members [...] provider tells you to take them. ?Taking rzuy-wlt-wyhefhd medicines, vitamins, herbs, and supplements. Follow your [...] provider. Document Revised: 12/01/2021 Document Reviewed: 12/01/2021 [employer] Patient Education 2022 Soundl.ly. Follow Up Care 03/15/2023 11:47:48 With:MALOU MCGREGOR, German Colmenares, URL Address: [facility] [address] , [place] [phone] When: Unknown Comments:referral to rad onc [facility] 03-07-2023 Hospital Discharge instructions Patient Education 03/07/2023 [...] for your post-operative appointment in 1-2 weeks [phone] or [phone] Follow Up Care 03/01/2023 11:26:32 With:German WESTFALL Address: [facility] [address] [place] [address]- Business (1) When: Unknown Comments:Keep scheduled appointment [facility] 03-07-2023 Note [id number]:127 [facility] 03-01-2023 Hospital Discharge instructions Patient Education 03/01/2023 [...] if anything looks unusual. Men with a frnjve-haks-ocynyy risk for skin cancer may want to see a direct care specialist (door installer) for an annual body check. What are the benefits of screening? Cancer screening is done to look for cancer in the very early stages, before it spreads and becomes harder to treat and before you would start to notice symptoms. Finding cancer early improves the chances of successful treatment. It may save your life. Where to find more information [place] [employer]: www.cancer.org Centers for Disease Control and Prevention: www.cdc.gov National Cancer [place]: www.cancer.gov Contact a health care provider if: [...] provider. Document Revised: 01/31/2022 Document Reviewed: 07/31/2020 [employer] Patient Education 2022 Soundl.ly. Follow Up Care 02/15/2023 16:20:20 With:MALOU MCGREGOR, German Colmenares, URL Address: [facility] [address] , [place] [phone] When: Unknown Comments:TRUS/bx [facility] [place] 03-01-2023 Note Chief Complaint pt here today as a SERVICES ACCOUNT MANAGER referral for elevated PSA HPI Staff Pt [...] nicotine dependence) Pt was a smoker from 1985-9842. Pt understands the increased risk for cancer associated with the bladder. Follow-up With When Contact Information MALOU MCGREGOR, German Colmenares, URL [facility] [address] [place] [phone] Additional Instructions: TRUS/bx Patient Education Cancer Screening [...] Tab, 20 mg= 1 tab(s), Oral, QID, [place] (more content not included)... [facility] Comment on above: Result Comment: Elec tronically Signed By: German WESTFALL MD\.br\Date and Time Signed: 03/01/23 11:03 EDT\.br\Electronically Co-Signed By: Denisha Diana\.br\Date and Time Co-Signed: 03/01/23 11:00 EDT 02-27-2023 Note Call to request lab orders be faxed to [facility] for pt to get drawn prior to I.D. joshua . Faxed. [facility] 12-02-2022 Note Orthopedic Surgery Subjective Chief [...] BACK SURGERY X2 CARPAL TUNNEL RELEASE Bilateral 2009 [facility] [place] GUIDED ASPIRATION OR INJECTION [...] rigors or breathless (more content not included)... [facility] 08-24-2021 Evaluation note Encounter Date Diagnosis [...] osteoarthritis involving multiple joints (ICD-10 - M15.9) [facility] Other 11-14-2016 History general Narrative - Reported* Type Description Date Medical History osteoarthritis Medical History back trouble Medical History left hip pain Surgical History left hip 08/01/2016 Surgical History PLIF- Dr. Villalobos 2013 Surgical History Back surgery 2013 Surgical History Right Thumb Repair 2014 Surgical History Bilat Carpal tunnel 2010 Surgical History Left Hip replacement - Dr. Andersen 2015 Surgical History Right thumb Surgical History XLIF-Doctor Villalobos 08/2020 Hospitalization History see above [employer] Other evaluation + Plan note Future Appointments Appointment Date:02/14/2023 09:30:00 AM Scheduled Provider: Location:[facility] Tanesha Appointment Type: Medicare Wellness [facility] Future Appointments Appointment Date:03/01/2023 09:00:00 AM Scheduled Provider:German WESTFALL MD Location:[facility] Appointment Type:URO New Patient Appointment Date:02/19/2024 08:00:00 AM Scheduled Provider: [facility] Type:FM Medicare Wellness [facility] Future Appointments Appointment Date:03/02/2023 08:30:00 AM Scheduled Provider: Location:[facility] Appointment Type:Urology CALL PAT FT Appointment Date:03/07/2023 08:00:00 AM Scheduled Provider: Location:[facility] Appointment Type:Urology FT Appointment Date:03/27/2023 09:15:00 AM Scheduled Provider:German WESTFALL MD [facility] Appointment Type:URO Office Visit Appointment Date:02/19/2024 08:00:00 AM Scheduled Provider: [facility] Appointment Type: Medicare Wellness Subsequent Future Scheduled Tests Laboratory* PSA Total 03/01/23 [facility] Evaluation + Plan note Future Appointments Appointment Date:03/27/2023 09:15:00 AM Scheduled Provider:German WESTFALL MD Location:[facility] Tanesha Appointment Type:URO Office Visit Appointment Date:02/19/2024 08:00:00 AM Scheduled Provider: [facility] Appointment Type: Medicare Wellness Subsequent Diagnostic Tests Pending * Prostate Histology ([facility]) 03/07/23 Future Scheduled Tests Laboratory* PSA Total 03/01/23 [facility] Future Appointments Appointment Date:09/12/2023 09:00:00 AM Scheduled Provider: Location:[facility] Tanesha Appointment Type:URO Nurse Visit Appointment Date:09/15/2023 08:45:00 AM Scheduled Provider:German WESTFALL MD Location:[facility] Tanesha Appointment Type:URO Office Visit Appointment Date:02/19/2024 08:00:00 AM Scheduled Provider: Location:[facility] Appointment Type:FM Medicare Wellness Subsequent Future Scheduled Tests Laboratory* PSA Total 03/01/23 [facility] evaluation + Plan note Future Appointments Appointment Date:08/28/2023 08:45:00 AM Scheduled Provider:German WESTFALL MD Location:[facility] Tanesha Appointment Type:URO Office Visit Appointment Date:09/15/2023 08:45:00 AM Scheduled Provider:German WESTFALL MD Location:[facility] Tanesha Appointment Type:URO Office Visit Appointment Date:02/19/2024 08:00:00 AM Scheduled Provider: Location:[facility] Appointment Type:FM Medicare Wellness Subsequent Future Scheduled Tests Laboratory* PSA Total 03/01/23 [facility] Evaluation + Plan note Future Appointments Appointment Date:09/15/2023 08:45:00 AM Scheduled Provider:German WESTFALL MD Location:[facility] Appointment Type:URO Office Visit Appointment Date:02/19/2024 08:00:00 AM Scheduled Provider: Location:[facility] Appointment Type: Medicare Wellness Subsequent Future Scheduled Tests Laboratory* PSA Total 03/01/23 [facility] evaluation + Plan note Future Appointments Appointment Date:12/11/2023 08:45:00 AM Scheduled Provider:German WESTFALL [facility] Type:[facility]O Office Visit Appointment Date:02/19/2024 08:00:00 AM Scheduled Provider[facility] Medicare Wellness Subsequent Diagnostic Tests Pending * PSA Total 11/02/23 Future Scheduled Tests Laboratory* PSA Total 03/01/23 [facility] evaluation + Plan note Future Appointments Appointment Date:02/19/2024 08:00:00 AM Scheduled Provider: Location:[facility] Appointment Type: Medicare Wellness Subsequent Appointment Date:07/01/2024 08:45:00 AM Scheduled Provider:German WESTFALL MD Location:[facility] Appointment Type:URO Office Visit Diagnostic Tests Pending * PSA Total 04/18/24 Future Scheduled Tests Laboratory* PSA Total 03/01/23 [facility] evaluation + Plan note Future Appointments Appointment Date:02/19/2024 08:00:00 AM Scheduled Provider: Location:[facility] Appointment Type:FM Medicare Wellness Subsequent Appointment Date:07/01/2024 08:45:00 AM Scheduled Provider:German WESTFALL MD Location:[facility] Appointment Type:URO Office Visit Future Scheduled Tests Laboratory* PSA Total [facility]01/23 [facility] assessment information available [facility] Work Phone: evaluation note* Diagnosis Malignant neoplasm of prostate (HCC)- Primary Malignant neoplasm of prostate [facility] Malignant neoplasm of prostate (HCC)- Primary Malignant neoplasm of prostate documented in this encounter [facility] note* Diagnosis Malignant neoplasm of prostate (HCC)- Primary Malignant neoplasm of prostate documented in this encounter [facility] note* Diagnosis Malignant neoplasm of prostate (HCC)- Primary Malignant neoplasm of prostate [facility]* Diagnosis Malignant neoplasm of prostate (HCC)- Primary Malignant neoplasm of prostate Platelets decreased (HCC) Thrombocytopenia, unspecified documented in this encounter [facility] note* Diagnosis Malignant neoplasm of prostate (HCC)- Primary Malignant neoplasm of prostate documented in this encounter [facility] note* Diagnosis Malignant neoplasm of prostate (HCC)- Primary Malignant neoplasm of prostate [facility]* Diagnosis Malignant neoplasm of prostate (HCC)- Primary Malignant neoplasm of prostate documented in this encounter [facility] note* Diagnosis Malignant neoplasm of prostate (HCC)- Primary Malignant neoplasm of prostate documented in this encounter [facility] note* Diagnosis Onset Date Resolution Status History of lumbar fusion acu te Left flank pain acute [facility] Work Phone: Evaluation note* Diagnosis Onset Date Resolution Status History of lumbar fusion acu te Left flank pain acute Cervical radiculopathy nonea ctive Cervical pain (neck) acute DDD (degenerative disc disease), lumbosacral acute Lumbar muscle pain acute [facility] Work Phone: Evaluation note* Diagnosis Malignant neoplasm of prostate (HCC)- Primary Malignant neoplasm of prostate documented in this encounter [facility] note* Diagnosis Onset Date Resolution Status History of lumbar fusion acu te Left flank pain acute Cervical radiculopathy nonea ctive Cervical pain (neck) acute DDD (degenerative disc disease), lumbosacral acute Lumbar muscle pain acute History of lumbar fusion acu te Left flank pain acute Carpal tunnel syndrome, left upper limb noneactive Cervical radiculopathy nonea ctive [facility] Work Phone: Hospital course Narrative No data available for this section [facility] No data available for this section [facility] No data available for this section [facility] Summary Purpose Family History No Family History Records Found Relationship Condition Age at Onset Recorded Date/T laure Not Specified Hypertension Unknown History of coronary artery bypass surgery Unknown father History of coronary artery bypass surgery Unknown Malignant neoplasm of colon Unknown Relationship Condition Age at Onset Recorded Date/T laure Not Specified Hypertension Unknown History of coronary artery bypass surgery Unknown father History of coronary artery bypass surgery Unknown Malignant neoplasm of colon Unknown father Unknown Heart disease Unknown Malignant neoplasm Unknown Not Specified Heart disease Unknown Unknown Advance Directives No Advanced Directives Records Found Advance Directive Response Recorded Date/ Time Advance Directives No August 18, 2017 8:38am Advance Directive Response Recorded Date/ Time Advance Directives No August 18, 2017 9:38am Advance Directive Response Recorded Date/ Time Advance Directives Yes December 11, 024 10:17am Chief Complaint and Reason for Visit Chief Complaint m43.16 Chief Complaint M47.817 Chief Complaint M47.817 yearly f/u XLIF w/xray Reason for Visit History of lumbar fu alana Left flank pain Chief Complaint M47.817 yearly f/u XLIF w/xray SERVICES ACCOUNT MANAGER REFF BY DR WINTER VILLALOBOS Reason for Visit History of lumbar fu alana Left flank pain Cervical radiculopathy Cervical pain (neck) DDD (degenerative disc disease), lumbosacral Lumbar muscle pain Chief Complaint M47.817 yearly f/u XLIF w/xray SERVICES ACCOUNT MANAGER REFF BY DR WINTER VILLALOBOS follow up after pain management/PT M54.12 Reason for Visit History of lumbar fu alana Left flank pain Cervical radiculopathy Cervical pain (neck) DDD (degenerative disc disease), lumbosacral Lumbar muscle pain History of lumbar fusion Left flank pain Carpal tunnel syndrome, left upper limb Cervical radiculopathy Additional Source Comments REASON FOR VISIT (unrecogniz ed section and content) Reason Comments Prostate Cancer Reason Comments Orders Reason Comments Radiotherapy On-treatment Visit Reason Comments Phlebotomy Specialty Diagnoses / Procedures Referred By Contac t Referred To Contact Radiation Oncology / RADIATION ONCOLOGY Diagnoses Malignant neoplasm of prostate Volume study Procedures VOLUME STUDY brachy therapy Jennifer Ruiz MD [address] [place] [address] [place] [address] Jennifer Ruiz MD [address] [place] [address] [place] [address] Referral ID Status Reason Start Date Expiration Date V isits Requested Visits Authorized [id number] Authorized 07/27/2023 10/25/2023 4 4 (unrecognized sect ion and content) No Status Records FoundNo Status Records FoundNo Status Records FoundNo Status Records FoundNo Status Records FoundNo Status Records FoundNo Status Records Found INFORMATION SOURCE (unrecogn ized section and content) DATE CREATED AUTHOR 04/11/2022 [facility] DATE CREATED AUTHOR AUTHOR'S ORGANIZ ATION 12/24/2022 [facility] DATE CREATED AUTHOR AUTHOR'S ORGANIZ ATION 11/17/2023 [facility] DATE CREATED AUTHOR AUTHOR'S ORGANIZ ATION 02/23/2024 [facility] DATE CREATED AUTHOR AUTHOR'S ORGANIZ ATION 02/24/2024 [facility] DATE CREATED AUTHOR AUTHOR'S ORGANIZ ATION 02/27/2024 [facility] DATE CREATED AUTHOR AUTHOR'S ORGANIZ ATION 02/29/2024 [facility] Care Teams (unrecognized sec tion and content) Team Status: Inactive Member Role Status Dates Uday Wilson MD Primary Care Provider Active Winter Villalobos MD Attending Provider Active Team Status: Active Member Role Status Dates Uday Wilson MD Primary Care Provider Active Team Status: Active Member Role Status Dates Miguelito Peres MD Primary Care Provider Active Team Status: Inactive Member Role Status Dates Miguelito Peres MD Primary Care Provider Active Start: December 08, 2023 End: December 08, 2023 Winter Villalobos MD Attending Provider Active Star t: December 08, 2023 End: December 08, 2023 Team Status: Inactive Member Role Status Dates Winter Villalobos MD Attending Provider Active Star t: December 12, 2023 End: December 12, 2023 Miguelito Peres MD Primary Care Provider Active Start: December 12, 2023 End: December 12, 2023 Team Status: Inactive Member Role Status Dates Miguelito Peres MD Primary Care Provider Active Start: January 01, 2024 End: January 01, 2024 Andre Carbajal MD Attending Provider Active Sta rt: January 01, 2024 End: January 01, 2024 Winter Villalobos MD Referring Provider Active Star t: January 01, 2024 End: January 01, 2024 Team Status: Active Member Role Status Dates JS Enriquez Primary Care Provider Active Team Status: Inactive Member Role Status Dates Miguelito Peres MD Primary Care Provider Active Start: January 30, 2024 End: January 30, 2024 Winter Villalobos MD Attending Provider Active Star t: January 30, 2024 End: January 30, 2024 Team Status: Inactive Member Role Status Dates Winter Villalobos MD Attending Provider Active Star t: February 20, 2024 End: February 20, 2024 JS Enriquez Primary Care Provider Active Start: February 20, 2024 End: February 20, 2024 Goals (unrecognized section and content) Goals may be documented in a n alternate section Source Comments (unrecognize d section and content) In the event this informatio n is protected by the Federal Confidentiality of Alcohol and Drug Abuse Patient Records regulations: The Federal rules restrict any use of the information to criminally investigate or prosecute any alcohol or drug abuse patient.[facility] the event this information is protected by the Federal Confidentiality of Alcohol and Drug Abuse Patient Records regulations: The Federal rules restrict any use of the information to criminally investigate or prosecute any alcohol or drug abuse patient.[facility] the event this information is protected by the Federal Confidentiality of Alcohol and Drug Abuse Patient Records regulations: The Federal rules restrict any use of the information to criminally investigate or prosecute any alcohol or drug abuse patient.[facility] the event this information is protected by the Federal Confidentiality of Alcohol and Drug Abuse Patient Records regulations: The Federal rules restrict any use of the information to criminally investigate or prosecute any alcohol or drug abuse patient.[facility] the event this information is protected by the Federal Confidentiality of Alcohol and Drug Abuse Patient Records regulations: The Federal rules restrict any use of the information to criminally investigate or prosecute any alcohol or drug abuse patient.[facility] the event this information is protected by the Federal Confidentiality of Alcohol and Drug Abuse Patient Records regulations: The Federal rules restrict any use of the information to criminally investigate or prosecute any alcohol or drug abuse patient.[facility] the event this information is protected by the Federal Confidentiality of Alcohol and Drug Abuse Patient Records regulations: The Federal rules restrict any use of the information to criminally investigate or prosecute any alcohol or drug abuse patient.[facility] the event this information is protected by the Federal Confidentiality of Alcohol and Drug Abuse Patient Records regulations: The Federal rules restrict any use of the information to criminally investigate or prosecute any alcohol or drug abuse patient.[facility] the event this information is protected by the Federal Confidentiality of Alcohol and Drug Abuse Patient Records regulations: The Federal rules restrict any use of the information to criminally investigate or prosecute any alcohol or drug abuse patient.[facility] the event this information is protected by the Federal Confidentiality of Alcohol and Drug Abuse Patient Records regulations: The Federal rules restrict any use of the information to criminally investigate or prosecute any alcohol or drug abuse patient.[facility] the event this information is protected by the Federal Confidentiality of Alcohol and Drug Abuse Patient Records regulations: The Federal rules restrict any use of the information to criminally investigate or prosecute any alcohol or drug abuse patient.[facility] the event this information is protected by the Federal Confidentiality of Alcohol and Drug Abuse Patient Records regulations: The Federal rules restrict any use of the information to criminally investigate or prosecute any alcohol or drug abuse patient.[facility] the event this information is protected by the Federal Confidentiality of Alcohol and Drug Abuse Patient Records regulations: The Federal rules restrict any use of the information to criminally investigate or prosecute any alcohol or drug abuse patient.[facility] the event this information is protected by the Federal Confidentiality of Alcohol and Drug Abuse Patient Records regulations: The Federal rules restrict any use of the information to criminally investigate or prosecute any alcohol or drug abuse patient.[facility] the event this information is protected by the Federal Confidentiality of Alcohol and Drug Abuse Patient Records regulations: The Federal rules restrict any use of the information to criminally investigate or prosecute any alcohol or drug abuse patient.[facility] FOR RECORDS PERTAINING TO PATIENTS WHO ARE [...] BE BASED ON THE PRIMARY CLINICAL RECORDS. [facility]. provides no warranty or guarantee of the accuracy or completeness of information in this document.
[2024-03-11 09:37] LABS: Erythrocyte Sedimentation Rate 37 mm/hr (<=20)
[2024-03-11 11:18] LABS: C Reactive Protein 0.72 mg/dL (<=0.50); Estimated GFR (African America >60 (>=60); Estimated GFR (Non-African Ame >60 (>=60)
== END 2024-03-11 09:00 | disposition home or self-care (01) ==
LOC: LAB 09:01
PROVIDERS: PCP Family Medicine
DX: T84.52XD Infection and inflammatory reaction due to internal left hip prosthesis, subsequent encounter (principal)
CPT/HCPCS: 36415; 82565; 84520; 85652; 86140

== ENCOUNTER 2024-06-27 09:16 | Outpatient (OUT) | payer MEDICARE, SELFPAY ==
--- OUTSIDE RECORDS SUMMARY | 2024-06-27 09:33 | XMS_ITS | CCD ---
Author Organization [facility] Care Team Providers Care Interventional Neuroradiologist Name Role Phone Winter Villalobos Unavailable MD Uday Wilson Primary Care Provider MD Winter Villalobos Attending Provider [phone] WILSON ., DR UDAY Stoll Consulting Unavailable [...] Unavailable WILSON, UDAY Stoll Primary Care Physician [phone] Marla Whitfield Primary Care Physician [phone] Unavailable Primary Care Provider UnavailMD Miguelito Avila Primary Care Provider MD Winter Villalobos Attending Provider [phone] Unavailable Primary Care Provider UnavailMD Miguelito Avila Primary Care Provider JS Whitfield Primary Care Provider Jennifer RUIZ Referring Unavailable Jennifer RUIZ Referring Unavailable ENGELER, G KANU Referring Unavailable [...] Attending Unavailable ENGELER, G KANU Referring Unavailable WESTFALL, GERMAN R Referring Unavailable ENGELER, G KANU Attending Unavailable [...] Referring Unavailable ENGELER, G KANU Referring Unavailable Roseann Marla L Attending Unavailable Roseann Marla L Attending Unavailable WESTFALL, German R Attending Unavailable WESTFALL, German R Attending Unavailable UDAY WILSON Referring Unavailable WESTFALL, German R Attending Unavailable [...] Admitting Unavailable WESTFALL, German R Attending Unavailable German WESTFALL Attending Unavailable Marla Whitfield Attending Unavailable Miguelito Peres Attending Unavailable MD Winter Villalobos Attending Provider [phone] MELLY MATA Attending Unavailable MELLY MATA Attending Unavailable SHENLYNSEY, ANDREWHAL Referring Unavailable SHENLYNSEY, JUAN RAMON Attending Unavailable ADOLFO, MELLY Attending Unavailable Miguelito Peres Primary Care Unavailable Winter Villalobos Admitting Unavailable Winter Villalobos Attending Unavailable Winter Villalobos E Admitting Unavailable VillalobosWinter E Attending Unavailable Marla Whitfield Primary Care Unavailable VillalobosWinter E Admitting Unavailable Winter Villalobos E Attending Unavailable Marla Whitfield Primary Care Unavailable CAIT CLAYTON Attending Unavailable CAIT CLAYTON Attending Unavailable MEHRAN LEE Attending Unavailable WINTER VILLALOBOS Referring Unavailable CAIT CLAYTON Attending Unavailable CAIT CLAYTON Attending Unavailable Allergies Allergy Classification Reported Allergen(s) Allergy Type Date of Onset Reaction(s) Facility (20 sources) celecoxib; Translations: [celecoxib] Drug Allergy 08-26-20 Unknown (qualifier value) [facility] (1 source) Codeine Drug Allergy Unknown Yorder Other (20 sources) Codeine; Translations: [Codeine] Drug Allergy 08-26-20 Unknown (qualifier value), Mental Status Change [facility] (12 sources) sodium pentathol Allergy to substance 08-26-20 Swelling of Lip/Tongue/Throat [facility] (13 sources) Ketoprofen; Translations: [ketoprofen] Drug Allergy 04-14-20 23 Unknown (qualifier value) [facility] (20 sources) oxyCODONE; Translations: [oxycodone] Drug Allergy 05-23-20 22 Lightheadedness (finding), Other: See Comments [facility] (1 source) celecoxib; Translations: [CeleBREX] Drug Allergy [facility] Repository (1 source) Acetaminophen / oxyCODONE; Translations: [OXYCODONE-ACETA MINOPHEN] Drug Allergy 05-23-20 [facility] Repository Medications Current Medications Medication Drug Class(es) Dates Sig (Normalized) Sig (Original) acetaminophen 500 mg oral capsule (19 sources) Start: 12-12-2023 take 500 mg by mouth every six hours Acetaminophen Active 500 MG PO Every 6 hours December 12, 2023 12:00am Start: 03-01-2023 Tylenol Oral S tart Date: 03/01/23 Status: Ordered amoxicillin 500 mg / clavulanate 125 mg oral tablet (20 sources) Penicillin-class Antibacterial Start: 03-29-2024 take 1 tablet by mouth twice daily Amoxicillin-Pot Clavulanate Active TAB PO Twice daily March 29, 2024 12:00am Start: 08-28-2023 End: 03-19-2024 Amoxicillin-Pot Clavulanate Discontinued 1 TAB PO December 12, 2023 12:00am March 19, 2024 10:38am Start: 02-08-2023 take 1 tablet by peter th every twelve hours Augmentin 500 mg-125 mg Tab 500 mg, Oral, q12hr, Refill(s) 0 Start Date: 02/08/23 Status: Ordered Start: 01-17-2023 take 1 tablet by peter th once at bedtime amoxicillin-clavulanic acid (AUGMENTIN) 500-125 mg per tablet TAKE 1 TABLET (500 MG) BY MOUTH IN THE MORNING AND AT BEDTIME. 01/17/2023 Active Comment on above: TAKE 1 TABLET (500 M G) BY MOUTH IN THE MORNING AND AT BEDTIME. bicalutamide 50 mg oral tablet (20 sources) Androgen Receptor Inhibitor Start: 3 End: bicalutamide (CASODEX) 50 mg tablet Take 50 mg by mouth. 03/27/2023 Active Comment on above: Take 50 mg by mouth. calcium carbonate 1500 mg / cholecalciferol 800 unt chewable tablet (10 sources) Vitamin D Start: take 1 tablet by mouth once daily Calcium Carbonate-Vitamin D3 (Caltrate 600 Plus D) 600 mg-20 mcg (800 unit) tablet,chewable Active 1 TAB PO Daily December 12, 2023 12:00am Calcium Carbonate / vitamin D3 (20 sources) calcium carbonate/vitamin D3 (CALTRATE 600 + D ORAL) Take by mouth. Active calcium carbonat e/vitamin D3 (CALTRATE 600 + D ORAL) Take by mouth. 0 Active Comment on above: Take by mouth. cephalexin 500 mg oral capsule (4 sources) Cephalosporin Antibacterial Start: 04-12-20 take 500 mg by mouth three times daily Cephalexin Active 500 MG PO Three times daily April 12, 2024 12:00am ciprofloxacin 500 mg oral tablet (2 sources) Quinolone Antimicrobial Start: 03-01-20 End: 03-08-20 Cipro 500 mg Tab 500 mg = 1 tab(s), Oral, q12hr, Start 3 days prior to procedure, X 7 day(s), # 14 tab(s), Refills(s) 0, Pharmacy: [facility], 178, cm, 03/01/23 9:33:00 EDT, Height/Length Dosing, 98, kg, 02/14/23 10:27:00 EDT, Weight Dosing Start Date: 03/01/23 Stop Date: 03/08/23 Status: Ordered dicyclomine hydrochloride 20 mg oral tablet (20 sources) Anticholinergic Start: 05-11-20 dicyclomine (BENTYL) 20 mg tablet Take 20 mg by mouth. 05/11/2020 Active Start: 05-11-2020 End: 12-12-2023 take 20 mg by mouth four times daily Dicyclomine Discontinued 20 MG PO Four times daily August 20, 2020 1:00am December 12, 2023 8:57am Comment on above: Take 20 mg by mouth. fluticasone propionate 0.05 mg/actuat metered dose nasal spray (20 sources) Corticosteroid Start: 03-15-2023 fluticasone (FLONASE) 50 mcg/actuation nasal spray Use in the nose. 03/15/2023 Active Comment on above: Use in the nose. Handicap Placard (11 sources) Start: 12-02-2022 Handicap Placard Handicap Placard, See Instructions, 1 EA, 0, Expires in 5 years Start Date: 12/02/22 Status: Ordered Lactobac 42/Bifid 8/colost/FOS (PROBIOTIC PLUS COLOSTRUM ORAL) (20 sources) Start: 03-01-2023 Lactobac 42/Bifid 8/colost/FOS (PROBIOTIC PLUS COLOSTRUM ORAL) Take by mouth. 03/01/2023 Active Start: 03-01-2023 Lactobac 42/Bi fid 8/colost/FOS (PROBIOTIC PLUS COLOSTRUM ORAL) Take by mouth. 0 03/01/2023 Active Comment on above: Take by mouth. lactobacillus rhamnosus gg [id number] unt oral capsule (10 sources) Start: 12-12-19 24 take 1 capsule by mouth once daily Lactobacillus Rhamnosus Gg (Culturelle) 10 billion cell capsule Active 1 CAP PO Daily December 12, 2023 12:00am meloxicam 7.5 mg oral tablet (20 sources) Nonsteroidal Anti-inflammatory Drug Start: 12-12-19 24 take 15 mg by mouth once daily Meloxicam Active 15 MG PO Daily December 12, 2023 12:00am Start: 08-20-2020 End: 08-28-2020 take 15 mg by mouth once daily Meloxicam Discontinued 15 MG PO Daily August 20, 2020 1:00am August 28, 2020 8:45am Start: 05-26-2020 take 1 tablet by epter th twice daily at mealtime as needed for pain meloxicam (MOBIC) 7.5 mg tablet TAKE ONE TABLET BY MOUTH TWICE A DAY WITH FOOD NEEDED FOR ARTHRITIS PAIN 05/26/2020 Active Comment on above: TAKE ONE TABLET BY OUT TWICE A DAY WITH FOOD NEEDED FOR ARTHRITIS PAIN 24 hr mirabegron 50 mg extended release oral tablet (1 source) beta3-Adrenergic Agonist Start: 08-03-2023 take 1 tablet by mouth once daily Myrbetriq 50 mg oral tablet, extended release 50 mg = 1 tab(s), Oral, Daily, # 30 tab(s), Refills(s) 11, Pharmacy: [facility], 178, cm, 03/27/23 9:48:00 EDT, Height/Length Dosing, 100, kg, 03/27/23 9:48:00 EDT, Weight Dosing Start Date: 08/03/23 Status: Ordered predniSONE 10 mg oral tablet (15 sources) Start: 04-25-2024 Prednisone Active 10 MG PO As Directed 16 09April 25, 2024 12:00am take 4 tablets for 3 days take 3 tablets for 3 days take 2 tablets for 3 days take 1 tablet for 3 days Start: 08-28-2020 End: 12-12-2023 Prednisone Discontinued 1 do se pk PO per package directions August 28, [...] tab for 3 days Probiotic + Colostrum (9 sources) Start: 03-01-2023 Probiotic + Colostrum Oral, Daily Start Date: 03/01/23 Status: Ordered solifenacin succinate 10 mg oral tablet (6 sources) Cholinergic Muscarinic Antagonist Start: 08-03-2023 take 1 tablet by mouth once solifenacin 10 mg tablet Take 10 mg by mouth every afternoon. 08/03/2023 Active Start: 08-03-2023 take 1 tablet [...] Sig (Original) aspirin 325 mg oral tablet (12 sources) Platelet Aggregation Inhibitor, Nonsteroidal Anti-inflammatory Drug Start: 0 End: 4 Aspirin (Reza Aspirin) 325 mg Tablet Discontinued 325 MG PO As Directed August 20, 2020 1:00am December 12, 2023 8:57am cyclobenzaprine hydrochloride 10 mg oral tablet (12 sources) Muscle Relaxant Start: 0 End: 4 take 10 mg by mouth three times daily Cyclobenzaprine Discontinued 10 MG PO Three times daily 50 August 28, 2020 1:00am December 12, 2023 8:57am methylPREDNISolone 4 mg oral tablet (3 sources) Corticosteroid Start: 4 End: 4 take 1 tablet by mouth once Methylprednisolone (Medrol (Rusty)) 4 mg tablets,dose pack Discontinued 0 PO per package directions April 18, 2024 12:00am April 25, 2024 10:53am PO PER PKG DIR for 6 days oxyCODONE hydrochloride 5 mg oral tablet (16 sources) Opioid Agonist Start: 4 End: 4 take 5-10 mg by mouth every six hours Oxycodone Discontinued 5 - 10 MG PO Q6H 40 8 April 12, 2024 April 25, 2024 10:53am Start: 08-28-2020 End: 12-12-2023 take 5-10 mg by mouth every six hours Oxycodone Discontinued 5 - 10 MG PO Q6H 60 8 August 28, 2020 December 12, 2023 8:57am Problems Active Problems Problem Classification Problem Date Documented Da te Episodic/Chronic Abdominal pain (19 sources) Left flank pain; Translations: [Unspecified abdominal pain] 12-12-2023 Episodic Cancer of prostate (20 sources) Malignant neoplasm of prostate; Translations: [Malignant tumor of prostate] Onset: 3 Chronic Coagulation and hemorrhagic disorders (14 sources) Platelet count below reference range; Translations: [Thrombocytopenia, unspecified] Onset: 3 05-08-2023 Chronic Esophageal disorders (11 sources) Gastroesophageal reflux disease [...] Onset: 2 Chronic Other connective tissue disease (10 sources) History of lumbar fusion; Translations: [Arthrodesis status] 12-12-2023 Episodic Other connective tissue disease (9 sources) Arthrodesis status; Translations: [Arthrodesis status] 12-12-2023 Episodic Other connective tissue disease (9 sources) Low back pain; Translations: [Myalgia, other site] 01-01-2024 Episodic Other connective tissue disease (10 sources) Myalgia, other site; Translations: [Lumbago] 01-01-2024 Episodic Other gastrointestinal disorders (11 sources) Irritable bowel syndrome 12-02-2022 Chronic Other nervous system disorders (17 sources) Carpal tunnel syndrome, left upper limb; Translations: [Carpal tunnel syndrome] 01-30-2024 Chronic Other nervous system disorders (6 sources) Cervical myelopathy; Translations: [Disease of spinal cord, unspecified] 03-19-2024 Chronic Other nervous system disorders (7 sources) Disease of spinal cord, unspecified; Translations: [Cervical spondylosis with myelopathy] 03-19-2024 Chronic Other nervous system disorders (5 sources) Chronic pain; Translations: [Other chronic pain] 04-03-2024 Chronic Other nervous system disorders (6 sources) Other chronic pain; Translations: [Other chronic pain] 04-03-2024 Chronic Other nervous system disorders (4 sources) Carpal tunnel syndrome of left wrist; Translations: [Carpal tunnel syndrome, left upper limb] 04-12-2024 Chronic Other non-traumatic joint disorders (9 sources) [...] disc disorders; other back problems (20 sources) Lumbosacral spondylosis without myelopathy; Translations: [Spondylosis [...] Test Name Value Interpretation Reference Range Facility Automated basophil %Ordered By: Winter Villalobos on 03-29-2024 Basophils/100 WBC (Bld) 0.7 % . [facility] Comment on above: Performed By: #### B MP, CBC #### [address] Automated basophil countOrde red By: Winter Villalobos on 03-29-2024 Basophils (Bld) [#/Vol] 0.0 10*3/uL 0.0-0.2 [facility] Comment on above: Result Comment: PERF ORMED BY: [place] [address] PATHOLOGIST MINE DEVELOPMENT ENGINEER MALVIN BAUMANN M.D. Performed By: #### B MP, CBC #### [address] Automated blood monocyte cou ntOrdered By: Winter Villalobos on 03-29-2024 Monocytes (Bld) [#/Vol] 0.4 10*3/uL 0.0-0.8 [facility] Comment on above: Performed By: #### B MP, CBC #### [address] Automated eosinophil %Ordere d By: Winter Villalobos on 03-29-2024 Eosinophils/100 WBC (Bld) 5.9 % . [facility] Comment on above: Performed By: #### B MP, CBC #### [address] Automated eosinophil countOr dered By: Winter Villalobos on 03-29-2024 Eosinophils (Bld) [#/Vol] 0.3 10*3/uL 0.0-0.45 [facility] Comment on above: Performed By: #### B MP, CBC #### [address] Automated monocyte %Ordered By: Winter Villalobos on 03-29-2024 Monocytes/100 WBC (Bld) 9.3 % . [facility] Comment on above: Performed By: #### B MP, CBC #### [address] Automated neutrophil %Ordere d By: Winter Villalobos on 03-29-2024 Neutrophils/100 WBC (Bld) 64.2 % . [facility] Comment on above: Performed By: #### B MP, CBC #### [address] Basic Metabolic Panelon 03-18 GFR/1.73 sq M.predicted MDRD (S/P/Bld) [Vol rate/Area] mL/min/{1.73_m2} Normal [facility] Comment on above: Performed By: #### B MP, CBC #### [address] Calcium [Mass/volume] in Ser um or PlasmaOrdered By: Winter Villalobos on 03-29-2024 Calcium [Mass/Vol] 9.2 mg/dL 8.6-10.3 [facility] Comment on above: Result Comment: PERF ORMED BY: [place] [address] PATHOLOGIST MINE DEVELOPMENT ENGINEER MALVIN BAUMANN M.D. Performed By: #### B MP, CBC #### [address] Carbon dioxide, total [Moles /volume] in Serum or PlasmaOrdered By: Winter Villalobos on 03-29-2024 CO2 [Moles/Vol] 28.5 mmol/L 21.0-31.0 [facility] Comment on above: Performed By: #### B MP, CBC #### [place] [address] [place] Chloride [Moles/volume] in S calixto or PlasmaOrdered By: Winter Villalobos on 03-29-2024 Chloride [Moles/Vol] 104 mmol/L 98-107 [facility] Comment on above: Performed By: #### B MP, CBC #### [place] [address] [place] Complete Blood Count Auto Di ffon 03-29-2024 Mean Corpuscular HGB Conc 35.1 g/dL Normal 32.5-35.6 [facility] Comment on above: Performed By: #### B MP, CBC #### [facility] [address] NRBC% 0.1 /100{WBC} Normal 0-0.5 [facility] Comment on above: Performed By: #### B MP, CBC #### [facility] [address] Creatinine [Mass/volume] in Serum or PlasmaOrdered By: Winter Villalobos on 03-29-2024 Creatinine [Mass/Vol] 0.91 mg/dL 0.70-1.30 [facility] Comment on above: Performed By: #### B MP, CBC #### [address] ECG 12 lead ECGon 03-29-2024 ECG 12 lead ECG [facility] [place] [address] [place] [address] Electrocardiograph Report Signed Patient: Jhonathan Aguilar MR#: [id number] 958 : 1945 Acct:[id number] Age/Sex: 78 / M ADM Date: 03/29/24 Loc: Room: Type: [facility] Attending Dr: Winter Villalobos MD Ordering Provider: Winter Villalobos MD Date of Service: 03/29/2409/10/1120 ECG/ECG 12 lead ECG: surgery 04/12 Copies to: Test Reason : Blood Pressure : */* mmHG Vent. Rate : 60 BPM Atrial Rate : 60 BPM P-R Int : 154 ms QRS Dur : 82 ms QT Int : 432 ms P-R-T Axes : -2 31 30 degrees QTcB Int : 432 ms Normal sinus rhythm Normal ECG When compared with ECG of 20-Aug-2020 09:38, premature ventricular complexes are no longer present Confirmed by ERIC TESFAYE MD, FACC ([id number]) on 03/29/2024 4:29:07 PM Referred By: Electronically Signed By: ERIC TESFAYE MD, FACC Transcribed By: MUS Signed By Eric Tesfaye MD, [facility] 03/29/24 1629 Normal [facility] Erythrocyte distribution wid th [Ratio] by Automated countOrdered By: Winter Villalobos on 03-29-2024 Erythrocyte distribution width (RBC) [Ratio] 13.2 % 12.0-14.8 [facility] Comment on above: Performed By: #### B MP, CBC #### [facility] [address] Erythrocytes [#/volume] in B lood by Automated countOrdered By: Winter Villalobos on 03-29-2024 RBC (Bld) [#/Vol] 4.00 10*6/uL 3.90-5.60 [facility] Comment on above: Performed By: #### B LEXIS, CBC #### [facility] [address] [place] [id number] [place] Glucose [Mass/volume] in Ser um or PlasmaOrdered By: Winter Villalobos on 03-29-2024 Glucose [Mass/Vol] 102 mg/dL High 70-100 [facility] Comment on above: ADA recommended refe rence rangeRandom Glucose Reference Range is dependent on time and content of last meal. Glucose of more than 200 mg/dL in a nonstressed, ambulatory subject supports the diagnosis of Diabetes Mellitus. Result Comment: [place] om Glucose Reference Range is dependent on time and content of last meal. Glucose of more than 200 mg/dL in a nonstressed, ambulatory subject supports the diagnosis of Diabetes Mellitus. ADA recommended reference range Performed By: #### B MP, CBC #### [facility] [address] [place] [id number] [place] Hematocrit [Volume Fraction] of Blood by Automated countOrdered By: Winter Villalobos on 03-29-2024 Hematocrit (Bld) [Volume fraction] 37.3 % Low 38.8-50.0 [facility] Comment on above: Performed By: #### B MP, CBC #### [place] [id number] [place] Hemoglobin [Mass/volume] in BloodOrdered By: Winter Villalobos on 03-29-2024 Hemoglobin (Bld) [Mass/Vol] 13.1 g/dL 13.0-17.0 [facility] Comment on above: Performed By: #### B MP, CBC #### [facility] [address] [place] [address] Leukocytes [#/volume] correc rere for nucleated erythrocytes in Blood by Automated counOrdered By: Winter Villalobos on 03-29-2024 WBC corrected for nucl RBC Auto (Bld) [#/Vol] 4.3 10*3/uL 4.1-10.5 [facility] Leukocytes [#/volume] in Blo od by Automated countOrdered By: Winter Villalobos on 03-29-2024 WBC (Bld) [#/Vol] 4.3 10*3/uL 4.1-10.5 [facility] Comment on above: Performed By: #### B MP, CBC #### [address] Lymphocytes [#/volume] in Bl ood by Automated countOrdered By: Winter Villalobos on 03-29-2024 Lymphocytes (Bld) [#/Vol] 0.9 10*3/uL Low 1.00-4.8 [facility] Comment on above: Performed By: #### B MP, CBC #### [address] Lymphocytes/100 leukocytes i n Blood by Automated countOrdered By: Winter Villalobos on 03-29-2024 Lymphocytes/100 WBC (Bld) 19.9 % . [facility] Comment on above: Performed By: #### B MP, CBC #### [place] [address] [place] MCH [Entitic mass] by Automa rere countOrdered By: Winter Villalobos on 03-29-2024 MCH (RBC) [Entitic mass] 32.7 pg 27.5-35.2 [facility] Comment on above: Performed By: #### B MP, CBC #### [address] MCHC Auto (RBC) [Mass/Vol]Or dered By: Winter Villalobos on 03-29-2024 MCHC (RBC) [Mass/Vol] 35.1 g/dL 32.5-35.6 [facility] MCV [Entitic volume] by Auto mated countOrdered By: Winter Villalobos on 03-29-2024 MCV (RBC) [Entitic vol] 93.3 fL 83.5-101 [facility] Comment on above: Performed By: #### B MP, CBC #### [address] Neutrophils [#/volume] in Bl ood by Automated countOrdered By: Winter Villalobos on 03-29-2024 Neutrophils (Bld) [#/Vol] 2.7 10*3/uL 1.8-7.7 [facility] Comment on above: Performed By: #### B MP, CBC #### [address] No Panel InformationOrdered By: Winter Villalobos on 03-29-2024 Estimated GFR (CKD-EPI) > 60.0 mL/Min [facility] Creatinine Clearance (Chem N/A [facility] Nucleated erythrocytes [Pres ence] in Blood by Automated countOrdered By: Winter Villalobos on 03-29-2024 Nucleated RBC Auto Ql (Bld) 0.1 /100{WBC} 0-0.5 [facility] Platelet mean volume [Entiti c volume] in Blood by Automated countOrdered By: Winter Villalobos on 03-29-2024 Platelet mean volume (Bld) [Entitic vol] 8.5 fL 6.6-10.1 [facility] Comment on above: Performed By: #### B MP, CBC #### [address] Platelets [#/volume] in Bloo d by Automated countOrdered By: Winter Villalobos on 03-29-2024 Platelets (Bld) [#/Vol] 135 10*3/uL Low 150-450 [facility] Comment on above: Performed By: #### B MP, CBC #### [address] Potassium [Moles/volume] in Serum or PlasmaOrdered By: Winter Villalobos on 03-29-2024 Potassium [Moles/Vol] 4.5 mmol/L 3.5-5.1 [facility] Comment on above: Performed By: #### B MP, CBC #### [facility] [address] Serum or plasma anion gap de terminationOrdered By: Winter Villalobos on 03-29-2024 Anion gap [Moles/Vol] 10.0 mmol/L 6.0-15.0 [facility] Comment on above: Performed By: #### B MP, CBC #### [facility] [address] Sodium [Moles/volume] in Ser um or PlasmaOrdered By: Winter Villalobos on 03-29-2024 Sodium [Moles/Vol] 138 mmol/L 136-145 [facility] Comment on above: Performed By: #### B MP, CBC #### [facility] [address] Urea nitrogen [Mass/volume] in Serum or PlasmaOrdered By: Winter Villalobos on 03-29-2024 Urea nitrogen [Mass/Vol] 23 mg/dL 7- [facility] Comment on above: Performed By: #### B MP, CBC #### [facility] [address] Follow-Upon 03-18-2024 Follow-Up [id number] Daniel Aguilar 1945 M Date Provider Department Center 03/18/2024 MELLY GASPAR [facility] INF Louie Heal Family History Family history unknown: Yes Level of Service:99829 [place] OFFICE/OUTPATIENT ESTABLISHED SF MDM 10 MIN Reason for Visit and Comments: 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 [Other] Normal [facility] Consultation Noteon 02-28-20 Consultation Note [id number] [facility] Lab Reportson 02-20-2024 Lab Reports [id number] F Normal Mar[facility] XR pre/post mri xrayon 02-19 XR pre/post mri xray [facility] [place] [address] [place] [address] MRI Report Signed Patient: Jhonathan Aguilar MR#: [id number] 958 : 1945 Acct:[id number] Age/Sex: 78 / M ADM Date: 02/20/24 Loc: MR Room: Type: [facility] CLI Attending Dr: Winter Villalobos MD Copies to: Winter Villalobos MD Ordering Provider: Winter Villalobos MD Date of Service: 02/20/24 MR/MR cervical spine wo con: M54.12 - Radiculopathy, cervical region ([id number]) XR/XR pre/post mri xray: M54.12 MR cervical [...] Jose Green M.D.02/20/2024 3:49 PM Dictation Location: [place] [address] Transcribed By: [facility] 02/20/24 1549 Dictated By: Jose Green II, MD 02/20/24 1527 Signed By: 02/20/24 1549 Normal [facility] Ambulatory Visit Summaryon 0 02-19-2024 Ambulatory Visit Summary LAUREN JHONATHAN L :1945 Visit Date:02/19/2024 Ambulatory Visit Instructions Your [...] mg Tab) fluticasone nasal (Flonase 0.05 mg/inh Fletcher) lactobacillus rhamnosus GG ([employer]) meloxicam (meloxicam 7.5 mg Tab) Procedures Performed [...] MCGREGOR, German Colmenares Where: [facility] [place] [id number] \.br\ Medications\.b r\ What How Much When [...] Unchanged fluticasone nasal (Flonase 0.05 mg/ inh Fletcher) 2 Sprays Nasal Inhalation Every day Fluid level behind tympanic membrane of both ears Seasonal allergies BMI 29.0-29.9,adul t Non-smoker each nostril \.br\ Unchanged lactobacillus rhamnosus GG ([employer] [facility]) See instructions Daily \.br\ Unchanged meloxicam (meloxicam [...] health care provider or diet and nutrition club ambassador (dietitian). This may include:\.br\ ? \.br\ Eating [...] of clutter to prevent tripping and/or falling. [place] Advance Directives reviewed. Documents remain at home, [...] Labs UTD, states he is going to [facility] to get labs drawn today, not sure [...] and medicatio (more content not included)... Normal [facility] Comment on above: Result Comment: Elec tronically [...] numbers. This can be done either in Chinese (U.[place] or metric measurements. Note that charts and online BMI calculators are available to help you find your BMI quickly and easily without having to do these calculations yourself. To calculate your BMI in Chinese ([place].S.) measurements: 1. Measure your weight in [...] for Disease Control and Prevention: www.cdc.gov ? [place] Heart Association: www.heart.org ? National Heart, Lung, and Blood [place]: www.nhlbi.nih.gov Summary ? Body mass index (BMI) is a number that is calculated from a person's weight and height. ? BMI may help estimate how much of a person's weight is composed of fat. BMI can help identify those who may be at higher risk for certain medical problems. ? BMI can be measured using Chinese measurements or metric measurements. ? BMI charts are used to identify whether you are underweight, normal weight, overweight, or obese. This information is not intended to replace advice given to you by your health care provider. Make sure you discuss any questions you have with your health care provider. Document Revised: 05/27/2020 Document Reviewed: 04/03/2020 Care IT Patient Education ? 2022 World BX. Healthy Eating Following a healthy eating pattern [...] wheat, cracked w (more content not included)... Normal [facility] Screenson 02-19-2024 Screens [id number]#[id number] [facility] CNPNon 02-16-2024 [facility] Telephone (RADTSA) -------- REXJHONATHAN COOL ([id number]) 1945 M Date Time Provider Department 02/16/24 Jennifer RUIZ During your visit today, we recorded the following information about you: Angela Norris MA 02/16/2024 1:39 PM Signed PSA order faxed to [facility]. Angela Norris MA Allergies As of Date: [...] Encounter Status:Closed by ANGELA NORRIS [facility] Telephone (RADTSA) -------- LAURENJHONATHAN ([id number]) 1945 M Date Time Provider Department 02/15/24 Jennifer RUIZ During your visit today, we recorded the following information about you: Dara Russell LPN 02/15/2024 3:59 PM Signed Please sign pended PSA order for upcoming follow up. Please fax PSA order to [facility] per patient request. Dara Russell RN Allergies As of Date: 02/15/2024 Noted Allergy Reaction CODEINE 04/05/2023 1 - Mental Status Change OXYCODONE 04/05/2023 14 - Other: See Comments Comments: Dizziness, syncope Date Reviewed: 09/07/2023 Reviewed by: Dara Russell LPN - Fully Assessed Reason for Visit: Orders [681] Primary Visit Diagnosis:Malignant neoplasm of prostate (HCC) [C61] Order(s):PROSTATE-SPECIF IC ANTIGEN DIAGNOSTIC [SQPSA] Order #: [id number] FUTURE Prescriptions as of 02/16/2024 - solifenacin [...] Status:Closed by Jennifer RUIZ on 02/16/24 Normal [facility] Ambulatory Visit Summaryon 0 12-11-2023 Ambulatory Visit [...] (Tylenol) amoxicillin-clavulanate (amoxicillin-clavulanate 500 mg-125 mg Tab) bifidobacterium-lactobac illus (Probiotic + Colostrum) dicyclomine (dicyclomine 20 mg Tab) fluticasone nasal (Flonase 0.05 mg/inh Fletcher) meloxicam (meloxicam 7.5 mg Tab) Procedures Performed [...] Appointments Monday 8:00 AM EDT With: Where: [facility] [address] [place] [address]- \.br\ You Need to Schedule the Following Appointments\. br\ Follow Up with MALOU MCGREGOR, German Colmenares, URL When: \.br\ Where:\.br\ [facility]\.br\ [place] [address]-\.br\ Medications\.b r\ What How Much When Why [...] Unchanged fluticasone nasal (Flonase 0.05 mg/ inh Fletcher) 2 Sprays Nasal Inhalation Every day Fluid [...] \.br\ A robotic radical prostatectomy. This is la [facility] CHEMISTRYOrdered By: SYSTEM SYSTEM on 12-11-2023 Prostate specific Ag [Mass/Vol] ng/mL Low 0.1 - 3.5 ng/mL [facility] Comment on above: Interpretive Data: T he concentration of PSA determined by different manufacturers can vary due to differences in assay methods and reagent specificity. Values obtained from different assay methods cannot be used interchangeably. The methodology used for this result was chemiluminescence using [employer] Access Hybritech PSA reagent. PSA Totalon 12-11-2023 Prostate specific Ag [Mass/Vol] ng/mL Low 0.1-3.5 [facility] Comment on above: Result Comment: The concentration of PSA determined by different manufacturers can vary due to differences in assay methods and reagent specificity. Values obtained from different assay methods cannot be used interchangeably. The methodology used for this result was chemiluminescence using [employer] Access Hybritech PSA reagent. Performed By: #### 1 [id number] ####[facility] [address] [place] [address] Patient Educationon 12-11-19 Patient Education Oncology Prostate [...] likelihood that the cancer will spread. ? Flowery Branch 6 or lower: This indicates that the [...] prostate L >>R. TRUS/bx 03/07/23 Path reveals Flowery Branch 8 (4+4) x 4 cores, highest % of core involvement 85%. Flow[place] 7 (4+3) x 5 cores, highest % [...] Contact Information MALOU MCGREGOR, German Colmenares, URL [address] [place] [address]- Additional Instructions: 6 mos w/ PSA pending current level Patient Education Prostate Cancer I, Juany Mckeon, personally scribed for Dr. Westfall on 12/11/2023 09:42:54. . Documentation recorded by the Juany son, accurately reflects the services(s) I performed and [...] QID, PRN, 3 refills Flonase 0.05 mg/inh Fletcher, 2 spray(s), Nasal, Daily Handicap Placard, See Instructions meloxicam 7.5 mg Tab, 7.5 mg= 1 tab( (more content not included)... Normal [facility] Comment on above: Result Comment: Elec tronically Signed By: German WESTFALL MD\.br\Date and Time Signed: 12/11/23 09:44 EDT\.br\Electronically Co-Signed By: Juany Mckeon.br\Date and Time Co-Signed: 12/11/23 09:43 EDT XR lumbar spine AP/LAT/FLX/E XTon 12-08-2023 XR lumbar spine AP/LAT/FLX/EXT [facility] Main [address] [address] XRay Report Signed Patient: Jhonathan Aguilar MR#: [id number] : 1945 Acct:[id number] Age/Sex: 78 / M ADM Date: 12/08/23 Loc: XD Room: Type: [facility] Attending Dr: Winter Villalobos MD Copies to: [...] Helder Foster M.D.12/08/2023 2:15 PM Dictation Location: [place] [address] Transcribed By: [facility] 12/08/23 1415 Dictated By: Helder Foster DO 12/08/23 1413 Signed By: 12/08/23 1415 Normal [facility] Ambulatory Visit Summaryon 0 12-01-2023 Ambulatory Visit Summary LAUREN JHONATHAN L :1945 Visit Date:12/01/2023 Ambulatory Visit Instructions Your Diagnosis BMI 31.0-31.9,adult Your Care Team Attending Physician - Marla Fortune Primary Care Physician - Marla Fortune This Is Your Medications List Misc Prescription (Handicap Placard) acetaminophen (Tylenol) amoxicillin-clavulanate (amoxicillin-clavulanate 500 mg-125 mg Tab) bicalutamide (bicalutamide 50 mg Tab) bifidobacterium-lactobac illus (Probiotic + Colostrum) dicyclomine (dicyclomine 20 mg Tab) fluticasone nasal (Flonase 0.05 mg/inh Fletcher) meloxicam (meloxicam 7.5 mg Tab) Procedures Performed [...] MCGREGOR, German Colmenares Where: [facility] Normal [address] [id number]- \.br\ Medications\.b r\ What How Much When [...] Unchanged fluticasone nasal (Flonase 0.05 mg/ inh Fletcher) 2 Sprays Nasal Inhalation Every day Fluid [...] for choosing us for your care.\.br\ \.br\ [facility] Family Medicine Office/Clini c Noteon 12-01-2023 Family Medicine Office/Clinic Note HPI Staff Jhonathan is a 78 year old male presenting for ER follow up ER followup: Hospital: [facility] Visit date: 11/21/23 Symptoms the patient presented [...] IBS, # 120 tab(s), Refills(s) 3, Pharmacy: [facility], 178, cm, 12/01/23 10:40:00 EDT, Height/Length Dosing, 97.9, kg, 12/01/23 10:40:00 EDT, Weight Dosing dicyclomine, 20 mg = 1 tab(s), Oral, QID, PRN Other (see comment), for IBS, # 120 tab(s), Refills(s) 3, Pharmacy: [facility] Follow-up No qualifying data available Problem [...] QID, PRN, 3 refills Flonase 0.05 mg/inh Fletcher, 2 spray(s), Nasal, Daily Handicap Placard, See [...] influenza virus vaccine, inactivated 08/07/2013 Recorded Normal [facility] Comment on above: Result Comment: Elec tronically Signed By: Marla Fortune\.br\Date and Time Signed: 12/01/23 12:29 EDT RAD - MISCon 11-22-2023 RAD - MISC [id number]#1.00TIF F Normal [facility] Follow-Upon 11-09-2023 Follow-Up [id number] Daniel Aguilar 1945 M Date Provider Department Center 11/09/2023 MELLY GASPAR [facility] INF Louie Heal Family History Family history unknown: Yes Level of Service:49404 [place] OFFICE/OUTPATIENT ESTABLISHED SF MDM 10 MIN Reason for Visit and Comments: 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 [Other] [facility] Follow-Upon 10-23-2023 Follow-Up [id number] Daniel Aguilar 1945 M Date Provider Department Center 10/23/2023 JUAN RAMON THOMAS MP ORTHO MPORTHO Family History Family history unknown: Yes Level of Service:22590 [place] OFFICE/OUTPATIENT ESTABLISHED LOW MDM 20 MIN Reason for Visit and Comments: Pain [136] New Patient [632] Normal [facility] Consultation Noteon 10-06-19 Consultation Note [id number]#1.00TIFF [facility] Ambulatory Visit Summaryon 1 Ambulatory Visit Summary JHONATHAN AGUILAR :1945 Visit Date:09/15/2023 Ambulatory Visit Instructions Your Diagnosis Prostate cancer Nocturia Tests Performed Urnls Dip Stick Auto w/o Microscopy POC 56406 Your Care Team Attending Physician - MALOU MCGREGOR, German Colmenares Primary Care Physician - Marla Fortune This Is Your Medications List bicalutamide (bicalutamide 50 mg Tab) Contact prescribing physician if questions or concerns Misc Prescription (Handicap Placard) acetaminophen (Tylenol) amoxicillin-clavulanate (amoxicillin-clavulanate 500 mg-125 mg Tab) bifidobacterium-lactobac illus (Probiotic + Colostrum) dicyclomine (dicyclomine 20 mg Tab) fluticasone nasal (Flonase 0.05 mg/inh Fletcher) meloxicam (meloxicam 7.5 mg Tab) [Image Removed: [...] What to do next Scheduled Follow-Up Appointments Shukri Mar. 25, 2024 8:45 AM EDT With: German WESTFALL MD Where: [facility] [address] [place] [address]- \.br\ You Need to Schedule the Following Appointments\. br\ Follow Up with German WESTFALL MD, URL When: \.br\ Where:\.br\ [address] [facility] [address]\.br\ [place] [address].br\ Medications\.b r\ What How Much When Why [...] Unchanged fluticasone nasal (Flonase 0.05 mg/ inh Fletcher) 2 Sprays Nasal Inhalation Every day Fluid [...] Urnls Dip Stick Auto w/o Microscopy POC 78819 (09/15/2023)\. br\ Bilirubin Urine Dipstick - Negative\.br\ Blood Urine Dipstick - Trace-intact\. br\ Glucose Urine Dipstick - Negative\.br\ Ketones Urine Dipstick - Negative\.br\ Leukocytes Urine Dipstick - Negative\.br\ Nitrite Urine Dipstick - Negative\.br\ Protein Urine Dipstick - Negative\.br\ Specific Hospers Urine Dipstick - 1.020\.br\ Urine Appearance Urine [...] under a microscope. This is called the Flowery Branch score and the total score can range from 6?10, indicating how likely it is that the cancer will spread (metastasize) to other parts of the body. The higher the score, the greater the likelihood that the cancer will spread.\.br\ ? \.br\ Flowery Branch 6 or lower: This indicates that the cancer cells look similar to normal prostate cells (well differentiated ).\.br\ ? \.br\ Ev 7: This indicates that the cancer cells look somewhat similar to normal prostate cells (moderately differentiated ).\.br\ ? \.br\ Flowery Branch 8, 9, or 10: This indicates that the cancer cells look very different than normal prostate cells [facility] Consultation Noteon 09-15-20 Consultation Note [id number]#1.00TIF F Normal [facility] Patient Educationon 09-15-20 Patient Education Oncology Prostate [...] under a microscope. This is called the Flowery Branch score and the total score can range from 6?10, indicating how likely it is that the cancer will spread (metastasize) to other parts of the body. The higher the score, the greater the likelihood that the cancer will spread. ? Flowery Branch 6 or lower: This indicates that the [...] hard prostate L >>R. TRUS/bx 03/07/23 - Flow[place] Branch 8 (4+4) x 4 cores, highest % of core involvement 85%. Flow[place] 7 (4+3) x 5 cores, highest % [...] Information MALOU MCGREGOR, German Colmenares, URL [address] [place] [address]- Additional Instructions: 3 months w/ PSA Patient Education Prostate Cancer I, Juany Mckeon, personally scribed for Dr. Westfall on 09/15/2023 09:38:06. . Documentation recorded by the geneibJuany stoll, accurately reflects the services(s) I performed [...] Transrectal needle (more content not included)... Normal [facility] Comment on above: Result Comment: Elec tronically Signed By: German WESTFALL MD\.br\Date and Time Signed: 09/15/23 09:40 EST\.br\Electronically Co-Signed By: Juany Mckeon\.br\Date and Time Co-Signed: 09/15/23 09:38 EST CNOVon 09-07-2023 CNOV Office Visit (RADTSA ) -------- JHONATHAN AGUILAR ([id number]) 1945 M Date Time Provider Department 09/07/23 10:15 AM Jennifer RUIZ During your visit today, we recorded the following information about you: Temperature Pulse Respiration Blood pressure 96.8 degrees 66/minute 16/minute 144/81 Weight 96.1 kg Jennifer Ruiz MD 09/14/2023 3:22 PM Signed Radiation Oncology - Follow Up Note PATIENT NAME: Jhonathan Aguilar PATIENT DIAGNOSIS: Prostate adenocarcinoma, initial PSA 26.2, biopsy Flowery Branch score 4 + 4 = 8 (grade [...] decreased (HCC) [D69.6] 05/08/2023 Visit Notes: >> Yvonne DONNA Diamond Liz Sep 07, 2023 10:22 AM Status: Signed AUA= 14 Disposition: Return in about 6 months (around 03/08/2024). Follow-up and Disposition History for Encounter Date Provider Department Center 09/07/2023 [id number] RUIZDIONNEConor YATES CHELSIE Encounter Status:Closed by Jennifer RUIZ on 09/14/23 Normal [facility] Lab Reportson 08-29-2023 Lab Reports [id number]#1.00TIF F Normal [facility] Ambulatory Visit Summaryon 1 10-29-2022 Ambulatory Visit [...] (Tylenol) amoxicillin-clavulanate (amoxicillin-clavulanate 500 mg-125 mg Tab) bifidobacterium-lactobac illus (Probiotic + Colostrum) dicyclomine (dicyclomine 20 mg Tab) fluticasone nasal (Flonase 0.05 mg/inh Fletcher) meloxicam (meloxicam 7.5 mg Tab) Procedures Performed [...] German WESTFALL MD Where: [facility] Normal [address] [place] [address]- \.br\ You Need to Schedule the Following Appointments\. br\ Follow Up with German WESTFALL MD, URL When: In 2 weeks\.br\ Comments:\.br\ appt made for 09/15/23 w/PSA and Lupron\.br\ Where:\.br\ [facility] [address]\ [place] [address].br\ Medications\.b r\ What How Much When Why Instructions\. br\ Changed solifenacin (Vesicare 10 mg Tab) 1 Tablets By Mouth Every day Pickup at [employer] [place] [address]\.br\ Unchanged bicalutamide (bicalutamide 50 mg Tab) 1 [...] Unchanged fluticasone nasal (Flonase 0.05 mg/ inh Fletcher) 2 Sprays Nasal Inhalation Every day Fluid [...] Information\.b r\ [facility]: [address], [place] [id number] [phone]\.br\ Allergies\.br\ CeleBREX (Unknown)\.br\ Orudis (Unknown)\.br\ codeine (Unknown)\.br\ [...] including vitamins, herbs, eye drops, creams, and cehd-bbq-gxjvb er medicines.\.br \ ? \.br\ Any problems [...] you to take them.\.br\ ? \.br\ Taking dmce-amo-cxyrn er medicines, vitamins, herbs, and supplements.\. br\ [...] \.br\ Taking antibiotic medicine before and after [facility] Patient Educationon 08-28-20 Patient Education Oncology Brachytherapy [...] including vitamins, herbs, eye drops, creams, and vbtv-rxs-eqrydfb medicines. ? Any problems you or family [...] tells you to take them. ? Taking uyab-ufd-bvcxxkr medicines, vitamins, herbs, and supplements. ? Follow [...] anest (more content not included)... Normal [facility] Urology Office/Clinic Noteon 08-28-2023 Urology Office/Clinic Note [...] 2 weeks [facility] [address] [place] [address] Additional Instructions: appt made for 09/15/23 w/PSA [...] primary osteoarthritis (more content not included)... Normal [facility] Comment on above: Result Comment: Elec tronically Signed By: German WESTFALL MD\.br\Date and Time Signed: 08/28/23 10:00 EST\.br\Electronically Co-Signed By: Margy Shields\.br\Date and Time Co-Signed: 08/28/23 09:58 EST PSA SerPl-mCncon 08-24-2023 Prostate specific Ag [Mass/Vol] 0.05 ng/mL Normal <2.60 [facility] Comment on above: Order Comment: Speci men Type: BLOOD SPECIMENOrdering Facility: [facility] Address: [address] [place] [address] Result Comment: Tota l PSA test methodology used is the Electrochemiluminescence Immunoassay by [employer]. Total PSA values by differing methodologies cannot be interchanged. Performed By: #### 2 [id number] ####[facility] [id number] [place] [address] [place] Insurance Correspondenceon 1 10-22-2022 Insurance Correspondence [id number]#1.00TI FF Onesimo [facility] Consultation Noteon 08-14-20 Consultation Note [id number]#1.00TIF F Onesimo [facility] CNOVon 08-09-2023 CNOV Office Visit (RADTSA ) -------- JHONATHAN AGUILAR ([id number]) 1945 M Date Time Provider Department 08/09/23 [...] DIAGNOSIS: Prostate adenocarcinoma, initial PSA 26.2, biopsy Flowery Branch score 4 + 4 = 8 (grade [...] ASSESSMENT/PLAN: Prostate adenocarcinoma, initial PSA 26.2, biopsy Flowery Branch score 4 + 4 = 8 (grade [...] (HCC) [C61] Order(s):PSA/PROSTSPECAG DIAG [SQPSA] Order #: [id number] FUTURE Prescriptions as of 08/09/2023 - solifenacin [...] Of Date 08/09/2023 Noted Resolved Platelets decreased ([facility]) [D69.6] 05/08/2023 Visit Notes: >> Draa Russell LPN Wed Aug 09, 2023 9:45 AM Status: Signed AUA= 21 Disposition: Return in about 4 weeks (around 09/06/2023). Follow-up and Disposition History for Encounter Date Pr (more content not included)... Normal [facility] RAD - MISCon 07-31-2023 RAD - MIS [id number]#1.00TIFF Normal [facility] RAD - MISCon 07-30-2023 RAD - MIS [id number]#1.00TIF F Onesimo [facility] CNOVon 07-27-2023 CNOV Office Visit (RADTSA ) -------- JHONATHAN AGUILAR ([id number]) 1945 M Date Time Provider Department 07/27/23 8:00 AM Jennifer RUIZ During your visit today, we recorded the following information about you: Jennifer Ruiz MD 07/27/2023 12:43 PM Signed Date: 07/27/23 Facility: [facility] Procedure: prostate transperineal brachytherapy implant Sources: [...] activity seen, results documented. La Ruiz MD [facility] Referring Provider: Jennifer RUIZ [[id number]] Allergies As of Date: 07/27/2023 Noted Allergy [...] Status:Closed by Jennifer RUIZ on 07/27/23 Normal [facility] Operative Reporton Operative Report [id number]#1.00TIF F Normal [facility] ECG 12-Leadon 07-18-2023 ECG 12-Lead [id number]#1.00TIFF Normal [facility] Lab Reportson 07-14-2023 Lab Reports [id number]#1.00TIF F Normal [facility] Lab Reports [id number]#1.00TIF F Normal [facility] RAD - MISCon 07-14-2023 RAD - MISC [id number] [id number]#1.00TIFF [facility] Insurance Correspondenceon 1 Insurance Correspondence [id number]#1.00TI FF [facility] CNOVon 07-05-2023 CNOV Office Visit (RADTSA ) -------- JHONATHAN AGUILAR ([id number]) 1945 M Date Time Provider Department 07/05/23 [...] Jennifer Ruiz MD Referring Provider: Jennifer RUIZ [[id number]] Allergies As of Date: 07/05/2023 Noted Allergy [...] Encounter Status:Closed by Jennifer RUIZ on 07/06/23 [facility] Consent for Procedure/Surger yon 06-21-2023 Consent for Procedure/Surgery [id number]#1.00CD: 127 [facility] Consultation Noteon 06-14-20 Consultation Note [id number]#1.00CD:1 27 [facility] CNOVon 05-29-2023 CNOV Office Visit (RADTSA ) -------- JHONATHAN AGUILAR ([id number]) 1945 M Date Time Provider Department 05/29/23 8:45 AM Jennifer RUIZ During your visit today, we recorded the following information about you: Temperature Pulse Respiration Blood pressure 96.7 degrees 72/minute 18/minute 144/71 Weight 95.3 kg Jennifer Ruiz MD 05/29/2023 9:10 AM Signed Radiation Oncology - On Treatment Review (OTR) Note PATIENT NAME: Jhonathan Aguilar PATIENT DIAGNOSIS: Prostate adenocarcinoma, initial PSA 26.2, biopsy Flowery Branch score 4 + 4 = 8 (grade [...] Encounter Status:Closed by Jennifer RUIZ on 05/29/23 [facility] CNOVmaddie 05-23-2023 CNOV Office Visit (RADTSA ) -------- REXSHANE COOLY ([id number]) 1945 M Date Time Provider Department 05/23/23 8:45 AM Jennifer RUIZ During your visit today, we recorded the following information about you: Temperature Pulse Respiration Blood pressure 97.5 degrees 70/minute 16/minute 165/74 Weight 93.9 kg Jennifer Ruiz MD 05/23/2023 8:56 AM Signed Radiation Oncology - On Treatment Review (OTR) Note PATIENT NAME: Jhonathan Aguilar PATIENT DIAGNOSIS: Prostate adenocarcinoma, initial PSA 26.2, biopsy Flowery Branch score 4 + 4 = 8 (grade [...] Encounter Status:Closed by Jennifer RUIZ on 05/23/23 [facility] CNOVon 05-16-2023 CNOV Office Visit (RADTSA ) -------- JHONATHAN AGUILAR ([id number]) 1945 M Date Time Provider Department 05/16/23 9:00 AM Jennifer RUIZ [facility] During your visit today, we recorded the following information about you: Temperature Pulse Respiration Weight 97 degrees 59/minute 16/minute 94.8 kg Jennifer Ruiz MD 05/16/2023 8:52 AM Signed Radiation Oncology - On Treatment Review (OTR) Note PATIENT NAME: Jhonathan Aguilar PATIENT DIAGNOSIS: Prostate adenocarcinoma, initial PSA 26.2, biopsy Flowery Branch score 4 + 4 = 8 (grade [...] Encounter Status:Closed by Jennifer RUIZ on 05/16/23 [facility] CNOVon 05-08-2023 CNOV Office Visit (RADTSA ) -------- JHONATHAN AGUILAR ([id number]) 1945 M Date Time Provider Department 05/08/23 9:00 AM Jennifer RUIZ RADNAY During your visit today, we recorded the following information about you: Temperature Pulse Respiration Blood pressure 97.4 degrees 68/minute 18/minute 172/84 Weight 93.9 kg Jennifer Ruiz MD 05/08/2023 8:53 AM Signed Radiation Oncology - On Treatment Review (OTR) Note PATIENT NAME: Jhonathan Aguilar PATIENT DIAGNOSIS: Prostate adenocarcinoma, initial PSA 26.2, biopsy [place] score 4 + 4 = 8 (grade [...] Status:Closed by Jennifer RUIZ on 05/08/23 Normal [facility] CBC W Auto Differential pane l (Bld)on 05-04-2023 Basophils (Bld) [#/Vol] 0.03 10*3/uL <0.11 k/uL [facility] [place] Basophils/100 WBC (Bld) 0.8 % [facility] [place] Differential cell count method Nom (Bld) Auto [facility] [place] Eosinophils (Bld) [#/Vol] 0.19 10*3/uL <0.46 k/uL [facility] [place] Eosinophils/100 WBC (Bld) 4.8 % [facility] [place] Erythrocyte distribution width (RBC) [Ratio] 12.7 % 11.5 - 15.0 % [facility] [place] Hematocrit (Bld) [Volume fraction] 40.3 % 39.0 - 51.0 % [facility] [place] Hemoglobin (Bld) [Mass/Vol] 14.3 g/dL 13.0 - 17.0 g/dL [facility] [place] Immature granulocytes (Bld) [#/Vol] <0.10 k/uL [facility] [place] Immature granulocytes/100 WBC (Bld) 0.5 % [facility] [place] Lymphocytes (Bld) [#/Vol] 1.08 10*3/uL 1.00 - 4.00 k/uL [facility] [place] Lymphocytes/100 WBC (Bld) 27.1 % [facility] [place] MCH (RBC) [Entitic mass] 32.4 pg 26.0 - 34.0 pg [facility] [place] MCHC (RBC) [Mass/Vol] 35.5 g/dL 30.5 - 36.0 g/dL [facility] [place] MCV (RBC) [Entitic vol] 91.4 fL 80.0 - 100.0 fL [facility] [place] Monocytes (Bld) [#/Vol] 0.40 10*3/uL <0.87 k/uL [facility] [place] Monocytes/100 WBC (Bld) 10.0 % [facility] [place] Neutrophils (Bld) [#/Vol] 2.27 10*3/uL 1.45 - 7.50 k/uL [facility] [place] Neutrophils/100 WBC (Bld) 56.8 % [facility] [place] Nucleated RBC (Bld) [#/Vol] <0.01 k/uL [facility] [place] Nucleated RBC/100 WBC (Bld) [Ratio] 0.0 /100 WBC [facility] [place] Platelet mean volume (Bld) [Entitic vol] 10.4 fL 9.0 - 12.7 fL [facility] [place] Platelets (Bld) [#/Vol] 125 10*3/uL Low 150 - 400 k/uL [facility] [place] RBC (Bld) [#/Vol] 4.41 10*6/uL 4.20 - 6.0 0 m/uL [facility] [place] WBC (Bld) [#/Vol] 3.99 10*3/uL 3.70 - 11. 00 k/uL [facility] [place] Basophils (Bld) [#/Vol] 0.03 10*3/uL Normal <0.11 [facility] Comment on above: Order Comment: Speci men Type: BLOOD SPECIMENOrdering Facility: [facility] Address: [address] [address] Performed By: #### 5 7021-8 ####[facility] LABCLIA [id number] [place] [address] Basophils/100 WBC (Bld) 0.8 % Normal [facility] Comment on above: Order Comment: Speci men Type: BLOOD SPECIMENOrdering Facility: [facility] Address: [address] [address] Performed By: #### 5 7021-8 ####[facility] LABCLIA [id number] [place] [address] Differential cell count method Nom (Bld) Auto Normal [facility] Comment on above: Order Comment: Speci men Type: BLOOD SPECIMENOrdering Facility: [facility] Address: [address] [address] Performed By: #### 5 7021-8 ####[facility] LABCLIA [id number] [place] [address] Eosinophils (Bld) [#/Vol] 0.19 10*3/uL Normal <0.46 [facility] Comment on above: Order Comment: Speci men Type: BLOOD SPECIMENOrdering Facility: [facility] Address: [address] [address] Performed By: #### 5 7021-8 ####[facility] LABCLIA [id number] [place] [address] Eosinophils/100 WBC (Bld) 4.8 % Normal [facility] Comment on above: Order Comment: Speci men Type: BLOOD SPECIMENOrdering Facility: [facility] Address: [address] [place] [address] Performed By: #### 5 7021-8 ####[facility] LABCLIA [id number] [place] [address] Erythrocyte distribution width (RBC) [Ratio] 12.7 % Normal 11.5-15.0 [facility] Comment on above: Order Comment: Speci men Type: BLOOD SPECIMENOrdering Facility: [facility] Address: [address] [place] [address] Performed By: #### 5 7021-8 ####[facility] LABIA [id number] [place] [address] Hematocrit (Bld) [Volume fraction] 40.3 % Normal 39.0-51.0 [facility] Comment on above: Order Comment: Speci men Type: BLOOD SPECIMENOrdering Facility: [facility] Address: [address] [place] [address] Performed By: #### 5 7021-8 ####[facility] LABCLIA [id number] [place] [address] Hemoglobin (Bld) [Mass/Vol] 14.3 g/dL Normal 13.0-17.0 [facility] Comment on above: Order Comment: Speci men Type: BLOOD SPECIMENOrdering Facility: [facility] Address: [address] [place] [address] Performed By: #### 5 7021-8 ####[facility] LABIA [id number] [place] [address] Immature granulocytes (Bld) [#/Vol] 10*3/uL Normal <0.10 [facility] Comment on above: Order Comment: Speci men Type: BLOOD SPECIMENOrdering Facility: [facility] Address: [address] [place] [address] Performed By: #### 5 7021-8 ####[facility] LABCLIA [id number] [place] [address] Immature granulocytes/100 WBC (Bld) 0.5 % Normal [facility] Comment on above: Order Comment: Speci men Type: BLOOD SPECIMENOrdering Facility: [facility] Address: [address] [place] [address] Performed By: #### 5 7021-8 ####[facility] LABCLIA [id number] [place] [address] Lymphocytes (Bld) [#/Vol] 1.08 10*3/uL Normal 1.00-4.00 [facility] Comment on above: Order Comment: Speci men Type: BLOOD SPECIMENOrdering Facility: [facility] Address: [address] [place] [address] Performed By: #### 5 7021-8 ####[facility] LABIA [id number] [place] [address] Lymphocytes/100 WBC (Bld) 27.1 % Normal [facility] Comment on above: Order Comment: Speci men Type: BLOOD SPECIMENOrdering Facility: [facility] Address: [address] [place] [address] Performed By: #### 5 7021-8 ####[facility] LABCLIA [id number] [place] [address] MCH (RBC) [Entitic mass] 32.4 pg Normal 26.0-34.0 [facility] Comment on above: Order Comment: Speci men Type: BLOOD SPECIMENOrdering Facility: [facility] Address: [address] [place] [address] Performed By: #### 5 7021-8 ####[facility] LABCLIA [id number] [place] [address] MCHC (RBC) [Mass/Vol] 35.5 g/dL Normal 30.5-36.0 [facility] Comment on above: Order Comment: Speci men Type: BLOOD SPECIMENOrdering Facility: [facility] Address: [address] [place] [address] Performed By: #### 5 7021-8 ####[facility] LABCLIA [id number] [place] [address] MCV (RBC) [Entitic vol] 91.4 fL Normal 80.0-100.0 [facility] Comment on above: Order Comment: Speci men Type: BLOOD SPECIMENOrdering Facility: [facility] Address: [address] [place] [address] Performed By: #### 5 7021-8 ####[facility] LABCLIA [id number] [place] [address] Monocytes (Bld) [#/Vol] 0.40 10*3/uL Normal <0.87 [facility] Comment on above: Order Comment: Speci men Type: BLOOD SPECIMENOrdering Facility: [facility] Address: [address] [place] [address] Performed By: #### 5 7021-8 ####[facility] LABCLIA [id number] [place] [address] Monocytes/100 WBC (Bld) 10.0 % Normal [facility] Comment on above: Order Comment: Speci men Type: BLOOD SPECIMENOrdering Facility: [facility] Address: [address] [place] [address] Performed By: #### 5 7021-8 ####[facility] LABIA [id number] [place] [address] Neutrophils (Bld) [#/Vol] 2.27 10*3/uL Normal 1.45-7.50 [facility] Comment on above: Order Comment: Speci men Type: BLOOD SPECIMENOrdering Facility: [facility] Address: [address] [place] [address] Performed By: #### 5 7021-8 ####[facility] LABCLIA [id number] [place] [address] Neutrophils/100 WBC (Bld) 56.8 % Normal [facility] Comment on above: Order Comment: Speci men Type: BLOOD SPECIMENOrdering Facility: [facility] Address: [address] [place] [address] Performed By: #### 5 7021-8 ####[facility] LABCLIA [id number] [place] [address] Nucleated RBC (Bld) [#/Vol] 10*3/uL Normal <0.01 [facility] Comment on above: Order Comment: Speci men Type: BLOOD SPECIMENOrdering Facility: [facility] Address: [address] [place] [address] Performed By: #### 5 7021-8 ####[facility] LABCLIA [id number] [place] [address] Nucleated RBC/100 WBC (Bld) [Ratio] 0.0 /100 WBC Normal [facility] Comment on above: Order Comment: Speci men Type: BLOOD SPECIMENOrdering Facility: [facility] Address: [address] [place] [address] Performed By: #### 5 7021-8 ####[facility] LABCLIA [id number] [place] [address] Platelet mean volume (Bld) [Entitic vol] 10.4 fL Normal 9.0-12.7 [facility] Comment on above: Order Comment: Speci men Type: BLOOD SPECIMENOrdering Facility: [facility] Address: [address] [place] [address] Performed By: #### 5 7021-8 ####[facility] LABCLIA [id number] [place] [address] Platelets (Bld) [#/Vol] 125 10*3/uL Low 150-400 [facility] Comment on above: Order Comment: Speci men Type: BLOOD SPECIMENOrdering Facility: [facility] Address: [address] [place], [place] [address] Performed By: #### 5 7021-8 ####[facility] LABCLIA [id number] [place] [address] RBC (Bld) [#/Vol] 4.41 10*6/uL Normal 4.20-6.00 [facility] Comment on above: Order Comment: Speci men Type: BLOOD SPECIMENOrdering Facility: [facility] Address: [address] [place] [address] Performed By: #### 5 7021-8 ####[facility] LABIA [id number] [place] [address] WBC (Bld) [#/Vol] 3.99 10*3/uL Normal 3.70-11.00 [facility] Comment on above: Order Comment: Speci men Type: BLOOD SPECIMENOrdering Facility: [facility] Address: [address] [place] [address] Performed By: #### 5 7021-8 ####[facility] LABIA [id number] [place] [address] CNOVon 05-04-2023 CNOV Office Visit (RADTSA ) -------- JHONATHAN AGUILAR ([id number]) 1945 M Date Time Provider Department 05/04/23 8:45 AM LAB/[facility]EL[facility]OM[facility] During your visit today, we recorded the [...] [C61] Order(s):CBC + DIFF [SQCBCDIF] Order #: [id number]. #:[id number] Prescriptions as of 05/04/2023 - amoxicillin-clavulanic acid [...] (None) Visit Notes: >> Rosa Lau RN [facility] May 04, 2023 8:49 AM Status: Signed [...] Encounter Status:Closed by ROSA LAU on 05/04/23 [facility] CNOVon 05-01-2023 CNOV Office Visit (RADTSA ) -------- JHONATHAN AGUILAR ([id number]) 1945 M Date Time Provider Department 05/01/23 [...] Encounter Status:Closed by Jennifer RUIZ on 05/01/23 [facility] CNOVon 04-26-2023 CNOV Office Visit (RADTSA ) -------- JHONATHAN AGUILAR ([id number]) 1945 M Date Time Provider Department 04/26/23 [...] Encounter Status:Closed by Jennifer [facility]UIZ [facility]/23 [facility]EE DEE Telephone ([employer]) -------- JHONATHAN AGUILAR ([id number]) 1945 M Date Time Provider Department 04/25/23 Jennifer RUIZ Chlorine GenieDIONNE During your visit today, we recorded the [...] [C61] Order(s):CBC + DIFF [SQCBCDIF] Order #: [id number] FUTURE Prescriptions as of 04/25/2023 - amoxicillin-clavulanic [...] Encounter Status:Closed by Jennifer RUIZ on 04/25/23 [facility] CNOVmaddie 04-18-2023 CNOV Office Visit (RADTSA ) -------- JHONATHAN AGUILAR ([id number]) 1945 M Date Time Provider Department 04/18/23 3:00 PM Jennifer RUIZ RADDIONNEA During your visit today, we recorded the following information about you: Allergies As of Date: 04/18/2023 Noted Allergy Reaction CODEINE 04/05/2023 1 - Mental Status Change OXYCODONE 04/05/2023 14 - Other: See Comments Comments: Dizziness, syncope Date Reviewed: 04/05/2023 Reviewed by: Rosa Lau, RN - Fully Assessed Reason for Visit: Simulation Request Form [5595] Primary Visit Diagnosis:Malignant neoplasm of prostate (HCC) [C61] Order(s):RADIATION TREATMENT PER RADIATION ONCOLOGIST PLAN [7934027] Order #: [id number]: 1 CT SIM PLANNING RADIATION ONCOLOGY [5995026] Order #: [id number] PT ED CANCER [5489064] Order #: [id number]: 1 Prescriptions as of 04/19/2023 - amoxicillin-clavulanic [...] Status:Closed by Jennifer RUIZ on 04/19/23 Normal [facility] Follow-Upon 04-17-2023 Follow-Up [id number] Daniel Aguilar 1945 M Date Provider Department Center 04/17/2023 [address] [facility] INF Louie Heal Family History Family history unknown: Yes Level of Service:84920 [place] OFFICE/OUTPATIENT ESTABLISHED MDM 10-19 MIN Reason for Visit and Comments: 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 Normal [facility] IntraOperative Documentson 0 03-30-2023 IntraOperative Documents [id number]: 127 Normal [facility] RAD - Pet Scan Reporton 03-18 RAD - Pet Scan Report [id number]#1.00CD: 127 Normal [facility] Ambulatory Visit Summaryon 0 03-27-2023 Ambulatory Visit [...] concerns Misc Prescription (Handicap Placard) acetaminophen (Tylenol) bifidobacterium-lactobac illus (Probiotic + Colostrum) dicyclomine (dicyclomine 20 mg Tab) fluticasone nasal (Flonase 0.05 mg/inh Fletcher) meloxicam (meloxicam 7.5 mg Tab) Procedures Performed Transrectal needle biopsy of prostate (03/07/2023), Biopsy (02/16/2023), Cataract, Cyst, Hip arthroplasty, Surgery. Discharge Vitals Heart Rate (Peripheral) 90 Respiratory Rate 16 Blood Pressure 138/88 Height 178 cm Height 70 in Weight 100 kg Weight 220 lb BMI 31.56 What to do next Scheduled Follow-Up Appointments Monday 8:00 AM EDT Where: [facility] Normal [facility] Lab Reportson 03-27-2023 Lab Reports [id number]: 127 Normal [facility] Patient Educationon 03-27-20 23 Patient Education Oncology Hormone Suppression Therapy [...] cancer. Where to find more information ? [place] [employer]: www.cancer.org ? National Cancer [place]: www.cancer.gov Contact a health care provider if: [...] an emergenc (more content not included)... Normal [facility] Urology Office/Clinic Noteon 03-27-2023 Urology Office/Clinic Note [...] prostate L >>R [1]. TRUS/bx 03/07/23 - [place] 8 (4+4) x 4 cores, highest % [...] mg qd. -Referral to Dr. Ruiz at [facility] for EBRT 2. Family history of prostate cancer in father (Z80.42: Family history of malignant neoplasm of prostate) Pt's father had prostate/colon cancer, treated with radiation seeds. [1] [1] Follow-up With When Contact Information MALOU MCGREGOR, German Colmenares, URL [facility] [address] , [place] [phone] Additional Instructions: referral to rad onc Patient [...] QID, PRN, 3 refills Flonase 0.05 mg/inh Fletcher, 2 spray(s), Nasal, Daily Handicap Placard, See Instructions meloxicam 7.5 mg Tab, 7.5 mg= 1 tab(s), Oral, BID, PRN, 11 refills Probiotic + Colostrum, Oral, Daily Tylenol, Oral Allergies (more content not included)... Normal [facility] Comment on above: Result Comment: Elec tronically Signed By: Ashlie Naik\.br\Date and Time Signed: 03/27/23 11:17 EDT RAD - CT Reporton 03-25-2023 RAD - CT Report [id number]: 127 Normal [facility] Ambulatory Visit Summaryon 0 03-15-2023 Ambulatory Visit [...] (Tylenol) amoxicillin-clavulanate (Augmentin 500 mg-125 mg Tab) bifidobacterium-lactobac illus (Probiotic + Colostrum) dicyclomine (dicyclomine 20 mg Tab) fluticasone nasal (Flonase 0.05 mg/inh Fletcher) meloxicam (meloxicam 7.5 mg Tab) Procedures Performed Transrectal needle biopsy of prostate (03/07/2023), Biopsy (02/16/2023), Cataract, Cyst, Hip arthroplasty, Surgery. Discharge Vitals Heart Rate (Peripheral) 78 Respiratory Rate 16 Blood Pressure 132/70 Height 178 cm Height 70 in Weight 100 kg Weight 220 lb BMI 31.56 What to do next Scheduled Follow-Up Appointments Monday 8:00 AM EDT Where: [facility] Ambulatory Visit Summary JHONATHAN AGUILAR :1945 Visit [...] (Tylenol) amoxicillin-clavulanate (Augmentin 500 mg-125 mg Tab) bifidobacterium-lactobac illus (Probiotic + Colostrum) dicyclomine (dicyclomine 20 mg Tab) fluticasone nasal (Flonase 0.05 mg/inh Fletcher) meloxicam (meloxicam 7.5 mg Tab) Procedures Performed Transrectal needle biopsy of prostate (03/07/2023), Biopsy (02/16/2023), Cataract, Cyst, Hip arthroplasty, Surgery. Discharge Vitals Heart Rate (Peripheral) 78 Respiratory Rate 16 Blood Pressure 132/70 Height 178 cm Height 70 in Weight 100 kg Weight 220 lb BMI 31.56 What to do next Scheduled Follow-Up Appointments Monday 8:00 AM EDT Where: [facility] Ambulatory Visit Summary JHONATHAN AGUILAR :1945 Visit Date:03/15/2023 Ambulatory Visit Instructions Your Diagnosis Fluid level behind tympanic membrane of both ears Seasonal allergies BMI 29.0-29.9,adult Non-smoker Your Care Team Attending Physician - Marla Fortune Primary Care Physician - Marla Fortune This Is Your Medications List [facility] [place]cription (Handicap Placard) acetaminophen (Tylenol) amoxicillin-clavulanate (Augmentin 500 mg-125 mg Tab) bifidobacterium-lactobac illus (Probiotic + Colostrum) dicyclomine (dicyclomine 20 mg Tab) fluticasone nasal (Flonase 0.05 mg/inh Fletcher) meloxicam (meloxicam 7.5 mg Tab) Procedures Performed Biopsy (02/16/2023), Cataract, Cyst, Hip arthroplasty, Surgery. Discharge Vitals Heart Rate (Peripheral) 72 Respiratory Rate 18 Blood Pressure 146/80 Height 180.5 cm Height 71 in Weight 96.5 kg Weight 212.3 lb BMI 29.62 What to do next Scheduled Follow-Up Appointments Monday 11:15 AM EDT With: MALOU MCGREGOR, German Colmenares Where: [facility] [address] \.br\ Medications\.b r\ What How Much When Why Instructions\. br\ New fluticasone nasal (Flonase 0.05 mg/ inh Fletcher) 2 Sprays Nasal Inhalation Every day Fluid level behind tympanic membrane of both ears Seasonal allergies BMI 29.0-29.9,adul t Non-smoker each nostril Pickup at [facility]\.br\ Unchanged acetaminophen (Tylenol) By Mouth\.br\ Unchanged amoxicillin-cl [...] Information\.b r\ [facility]: [address], [place] [id number] [phone]\.br\ Allergies\.br\ CeleBREX (Unknown)\.br\ Orudis (Unknown)\.br\ codeine (Unknown)\.br\ [...] IBS - Irritable bowel syndrome\.br\ Sciatica\.br\ \.br\ [facility] [place]enton 03-15-2023 Consent [id number]: 127 Normal [facility] Family Medicine Office/Clini c Noteon 03-15-2023 Family [...] QID, PRN, 3 refills Flonase 0.05 mg/inh Fletcher, 2 spray(s), Nasal, Daily Handicap Placard, See Instructions meloxicam 7.5 mg Tab, 7.5 mg= 1 tab(s), Oral, BID, PRN, 11 refills Probiotic + Colostrum, Oral, Daily Tylenol, Oral Allergies CeleBREX (Unknown) Orudis (Unknown) codeine (Unknown) oxyCODONE (Lightheaded) Social History Alcohol - Low Risk, 12/02/2022 Other Substance Abuse - Denies Substance Abuse, 12/03/19 (more content not included)... Normal [facility] Comment on above: Result Comment: Elec tronically [...] cancer. Where to find more information ? [place] [employer]: www.cancer.org ? National Cancer [place]: www.cancer.gov Contact a health care provider if: [...] an emergenc (more content not included)... Normal [facility] Urology Office/Clinic Noteon 03-15-2023 Urology Office/Clinic Note [...] cons of each therapy today, and this [place] prostate cancer book was provided. Explained that [...] hip infection. 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 He wishes for seeds/external radiation vs. surgery. Follow up after below or sooner if needed. Pt understands and agrees with plan. -NM bone scan. -CT AP w/wo con. -Refer to rad onc. -Start Casodex 50 mg qd. SEs discussed. Rx sent to [facility] [place]. will give Lupron when prior auth is completed. 2. Family history of prostate cancer in father (Z80.42: Family history of malignant neoplasm of prostate) Pt's father had prostate/colon cancer, treated with radiation seeds. [1] Follow-up With When Contact Information MALOU MCGREGOR, German Colmenares, URL [facility] [address], [place] [address]- Additional Instructions: f/u after NM bone, CT, [...] mg Tab (more content not included)... Normal [facility] Comment on above: Result Comment: Elec tronically Signed By: German WESTFALL MD\.br\Date and Time Signed: 03/15/23 11:47 EDT\.br\Electronically Co-Signed By: Jennie Mirza\Date and Time Co-Signed: 03/15/23 11:42 EDT Prostate Histology ([facility]) on 03-13-2023 Prostate Histology Diagnosis Info Invalid Interpretation Code [facility] Comment on above: Result Comment: A:Pr ostate,Left Lateral Base:Needle Biopsy Interpretation - - Atypical acinar glands suspicious for adenocarcinoma. MicroScopic Description - B:Prostate,Left Lateral Mid:Needle Biopsy Interpretation - - Acinar adenocarcinoma of prostate; [place] score 8(4+4); Tumor measures 0.60 cm in length; 85% of the core involved by tumor; 1 of 1 core involved. MicroScopic Description - C:Prostate,Left Lateral [place]:Needle Biopsy Interpretation - - Acinar adenocarcinoma of [...] 1 core involved. MicroScopic Description - F:Prostate,Left [place]:Needle Biopsy Interpretation - - Atypical small acinar glands. MicroScopic Description - G:Prostate,Right Base:Needle Biopsy Interpretation - - Acinar adenocarcinoma of prostate; Ev score 7(4+3); Tumor measures 0.35 cm in length; 26% of the core involved by tumor; 1 of 1 core involved. MicroScopic Description - H:Prostate,Right Mid:Needle Biopsy Interpretation - - Acinar adenocarcinoma of prostate; [place] score 7(4+3); Tumor measures 0.6 cm in length; 31% of the core involved by tumor; 1 of 1 core involved. MicroScopic Description - I:Prostate,Right Volga:Needle Biopsy Interpretation - - Acinar adenocarcinoma of [...] Interpretation - - Acinar adenocarcinoma of prostate; [place] score 7(4+3); Tumor measures 1.3 cm in length; 65% of the core involved by tumor; 1 of 1 core involved. MicroScopic Description - L:Prostate,Right Lateral [place]:Needle Biopsy Interpretation - - Atypical acinar glands [...] on: 03/13/2023 13:24:39 Performed By: #### 1 [id number] #### [address] [address] Consent for Procedure/Surger yon 03-07-2023 Consent for Procedure/Surgery [id number] :127 Normal [facility] Consent for Treatmenton 02-17 Consent for Treatment [id number]#1.00CD: 127 Normal [facility] IntraOperative Documentson 0 03-07-2023 IntraOperative Documents [id number]#[id number] :127 Normal [facility] Main OR Intraoperative Recor don 03-07-2023 Main OR Intraoperative Record IntraOp Document Type [facility] Summary Primary Physician: German WESTFALL MD Finalized Date/Time: 03/07/23 09:10:52 Pt. Name: JHONATHAN AGUILAR Soni ChristyB./Sex: 1945 Male Med Rec #: [id number] Physician: German WESTFALL MD Financial #: [id number] Pt. Type: O Room/Bed: / Admit/Disch: 03/07/23 07:43:39 - Institution: Case Times FTURO Entry 1 Patient Times In Room 03/07/23 08:43:00 Out Room 03/07/23 09:07:00 Procedure Times Start 03/07/23 08:50:00 Stop 03/07/23 08:57:00 Anesthesia Times Last Modified By: Melinda Sotelo RN 03/07/23 09:07:30 Case Attendance FTURO Entry 1 Entry 2 Entry 3 Case Attendee MALOU MCGREGOR, German Amado WELL PULLER, Nova Sotelo RN, Melinda Westbrook Performed Surgeon - Primary Scrub - Primary Ambulatory Services Representative - Primary Time In 03/07/23 08:43:00 03/07/23 [...] Out German WESTFALL MD, Verified (If Participants IngrisNova allan CST, Applicable) Melinda Sotelo RN Time Out [...] By: Melinda Sotelo RN 03/07/23 09:10 Normal [facility] Main OR Preoperative Recordo n 03-07-2023 Main OR Preoperative Record Holding Area Document Type FTURO Summary Primary Physician: German WESTFALL MD Finalized Date/Time: 03/07/23 08:44:42 Pt. Name: JHONATHAN AGUILAR Soni /Sex: 1945 Male Med Rec #: [id number] Physician: German WESTFALL MD Financial #: [id number] Pt. Type: O Room/Bed: / Admit/Disch: 03/07/23 [...] Complaints of Pain: No Skin Integrity Intact, [place], Warm, & Dry Vitals - EU Blood Pressure 140/73 Pulse 70 bpm Respirations 20 br/min SPO2 96 % RN Reviewed Yes Last Modified By: Melinda Sotelo RN 03/07/23 08:44:39 General Comments: Temp 36.4 Finalized By: Melinda Sotelo RN Document Signatures Signed By: Dawn Butt LPN 03/07/23 08:00 Melinda Sotelo RN 03/07/23 08:44 Normal [facility] Operative Reporton 3 Operative Report Patient: ESTEFANIA AGUILAR Age: 77 [...] were sent to pathology for evaluation. Normal [facility] Comment on above: Result Comment: Caitlin wilson Signed By: MALOU MCGREGOR, German Valle.jamshid\Date and Time Signed: 03/07/23 09:08 EDT Outpatient Surgery Discharge Instructionon 03-07-2023 Outpatient Surgery Discharge Instruction [id number]#[id number] :127 Normal [facility] Patient Educationon 03-07-20 Patient Education Custom Transrectal [...] for your post-operative appointment in 1-2 weeks [phone] or [phone] Normal [facility] Prostate Histology ([facility]) on 03-07-2023 PH Method of Extraction Needle Biopsy Normal [facility] Comment on above: Performed By: #### 1 [id number] #### [facility] Laboratory [address] [place] [address] PH Number of Jars 2 Invalid Interpretation Code [facility] Comment on above: Performed By: #### 1 [id number] #### [facility] [address] [place] [address] PH Specimen 1 L Base Prostate Normal [facility] Comment on above: Performed By: #### 1 [id number] #### [facility] [address] [place] [address] PH Specimen 10 R Lat Bse Prost Normal [facility] Comment on above: Performed By: #### 1 [id number] #### [facility] Laboratory [address] [place] [address] PH Specimen 11 R Lat Mid Prost Normal [facility] Comment on above: Performed By: #### 1 [id number] #### [facility] [address] [place] [address] PH Specimen 12 R Lat Apx Prost Normal [facility] Comment on above: Performed By: #### 1 [id number] #### [facility] Laboratory [address] [place] [address] PH Specimen 2 L Mid Prostate Normal [facility] Comment on above: Performed By: #### 1 [id number] #### [facility] [address] [place] [address] PH Specimen 3 L Apx Prostate Normal [facility] Comment on above: Performed By: #### 1 [id number] #### [facility] Laboratory [address] [place] [address] PH Specimen 4 L Lat Bse Prost Normal [facility] Comment on above: Performed By: #### 1 [id number] #### [facility] Laboratory [address] [place] [address] PH Specimen 5 L Lat Mid Prost Normal [facility] Comment on above: Performed By: #### 1 [id number] #### [facility] Laboratory [address] [place] [address] PH Specimen 6 L Lat Apx Prost Normal [facility] Comment on above: Performed By: #### 1 [id number] #### [facility] Laboratory [address] [place] [address] PH Specimen 7 R Base Prostate Normal [facility] Comment on above: Performed By: #### 1 [id number] #### [facility] Laboratory [address] [place] [address] PH Specimen 8 R Mid Prostate Normal [facility] Comment on above: Performed By: #### 1 [id number] #### [facility] [address] [place] [address] PH Specimen 9 R Apx Prostate Normal [facility] Comment on above: Performed By: #### 1 [id number] #### [facility] Laboratory [address] [place] [address] PH Type of Service Technical Only Normal [facility] Comment on above: Performed By: #### 1 [id number] #### [facility] Laboratory [address] [place] [address] Ambulatory Visit Summaryon 0 03-01-2023 Ambulatory Visit Summary JHONATHAN AGUILAR :1945 Visit Date:03/01/2023 Ambulatory Visit Instructions Your Diagnosis Elevated PSA Family history of prostate cancer Former smoker Tests Performed Urnls Dip Stick Auto w/o Microscopy POC [id number] Your Care Team Attending Physician - German WESTFALL MD Primary Care Physician - UDAY WILSON MD Referring Physician - UDAY WILSON MD This Is Your Medications List Contact prescribing physician if questions or concerns Misc Prescription (Handicap Placard) acetaminophen (Tylenol) amoxicillin-clavulanate (Augmentin 500 mg-125 mg Tab) bifidobacterium-lactobac illus (Probiotic + Colostrum) dicyclomine (dicyclomine 20 mg Tab) meloxicam (meloxicam 7.5 mg Tab) Procedures Performed Cataract, Cyst, Hip arthroplasty, Surgery. Discharge Vitals Heart Rate (Peripheral) 63 Blood Pressure 134/73 Height 178 cm Height 70 in What to do next Scheduled Follow-Up Appointments Monday 8:00 AM EDT Where: [facility] Invalid Interpretation Code Family history of prostate cancer [facility] Formson 03-01-2023 Forms [id number]#[id number]:1 27 Normal [facility] Patient Educationon 03-01-20 23 Patient Education Oncology [...] if anything looks unusual. Men with a hpndvc-soqd-kkieol risk for skin cancer may want to see a skin drier (injection molding machine setter) for an annual body check. What are the benefits of screening? Cancer screening is done to look for cancer in the very early stages, before it spreads and becomes harder to treat and before you would start to notice symptoms. Finding cancer early improves the chances of successful treatment. It ma (more content not included)... Normal [facility] Pre-Certification Formon Pre-Certification Form [id number]#[id number]: 127 [facility] Screenson 03-01-2023 Screens [id number]#[id number] :127 [facility] HEMATOLOGYOrdered By: SYSTEM SYSTEM on 02-15-2023 Basophils/100 WBC (Bld) 0.5 % Normal 0.0 - 2.0 % [facility] HemeAutoSS Basophils/Leukocytes Auto (Bld) [Pure # fraction] 0.0 E9/L Normal 0.0 - 0.2 E9/L [facility]eAutoSS Eosinophils/100 WBC (Bld) 6.0 % Normal 0.0 - 8.0 % [facility] HemeAutoSS Eosinophils/Leukocyte s Auto (Bld) [Pure # fraction] 0.3 E9/L Normal 0.0 - 0.5 E9/L [facility]eAutoSS Lymphocytes/100 WBC (Bld) 39.4 % Normal 14.0 - 50.0 % [facility] HemeAutoSS Lymphocytes/Leukocyte s Auto (Bld) [Pure # fraction] 2.3 E9/L Normal 1.0 - 4.0 E9/L [facility]eAutoSS Monocytes/100 WBC (Bld) 9.0 % Normal 4.0 - 14.0 % [facility]eAutoSS Monocytes/Leukocytes Auto (Bld) [Pure # fraction] 0.5 E9/L Normal 0.2 - 1.0 E9/L [facility]AutoSS Neutrophils/100 WBC (Bld) 45.1 % Normal 36.0 - 75.0 % [facility]eAutoSS Neutrophils/Leukocyte s Auto (Bld) [Pure # fraction] 2.6 E9/L Normal 2.0 - 7.5 E9/L [facility] HEMATOLOGYOrdered By: Amanda Holm on 02-15-2023 Erythrocyte distribution width (RBC) [Ratio] 13.7 % Normal 10.9 - 14.2 % [facility] Hematocrit (Bld) [Volume fraction] 45.9 % Normal 37.7 - 49.0 % [facility] HemeAutoSS Hemoglobin (Bld) [Mass/Vol] 15.6 g/dL Normal 13.5 - 17.5 gm/dL [facility] HemeAutoSS MCH (RBC) [Entitic mass] 32.1 pg [...] 4.1 g/dL Normal 3.3 - 5.0 gm/dL [facility] Remisol Albumin/Globulin [Mass ratio] 1.3 {ratio} Normal 1.1 - 2.2 [facility] Remisol ALP [Catalytic activity/Vol] 153 [iU]/d High 21 - 98 Int._Unit/L [facility] Rem[facility] ALT No additional P-5'-P [Catalytic activity/Vol] 20 [iU]/d Normal 6 - 46 Int._Unit/L [facility] Anion gap [Moles/Vol] 8 mmol/L Normal 6 - 16 mEq/L [facility] Remisol AST [Catalytic activity/Vol] 28 [iU]/d Normal 5 - 43 Int._Unit/L [facility] Bilirubin [Mass/Vol] 0.6 mg/dL Normal 0.0 - 1 .1 mg/dL [facility] Calcium [Mass/Vol] 9.1 mg/dL Normal 8.9 - 11. 1 mg/dL [facility] Chloride [Moles/Vol] 107 mmol/L Normal 101 - 1 11 mmol/L [facility] Cholesterol [Mass/Vol] 165 mg/dL [...] mg/dL Normal 55 - 199 mg/dL [facility] Potassium [Moles/Vol] 4.3 mmol/L Normal 3.5 - 5.3 mmol/L [facility] Prostate specific Ag [Mass/Vol] 26.2 ng/mL High 0.1 - 3.5 ng/mL [facility] Protein [Mass/Vol] 7.2 g/dL Normal 6.0 - 7.8 gm/dL [facility] Sodium [Moles/Vol] 138 mmol/L Normal 135 - 145 mmol/L [facility] Triglyceride [Mass/Vol] 97 mg/dL Normal <=149mg/dL [facility] Urea nitrogen [Mass/Vol] 20 mg/dL Normal 5 - 21 mg/dL [facility] Urea nitrogen/Creatinine [Mass ratio] 18 mg/mg Normal 10 - 20 [facility] CRPon 10-10-2022 CRP [Mass/Vol] mg/L Normal <=1.0 [facility] Comment on above: Performed By: #### C RP #### [facility] [address] [place] [address] Dr. Lissett Britton SED RATE WESTERGRENon 2022 SED RATE 6 mm/hr Normal <=20 [facility] Comment on above: Performed By: #### S EDR #### [facility] [address] [address] [address] Lissett Britton [facility] SARS-CoV-2 (COVID-19) RNA DANILO+probe Ql (Unsp spec) Not detected Normal NOT DETECTED [facility] Comment on above: Result Comment: This test is not yet approved or cleared by the [place] FDA. When there are no FDA-approved or cleared tests available, and other criteria are met, FDA can make tests available under an emergency access mechanism called an Emergency Use Authorization (EUA). The EUA for this test is supported by the [place] of Health and Human Service's (HHS's) declaration [...] SARS-CoV-2. Performed By: #### C VDTBH #### [facility] [address] [place] [address] Dr. Lissett Britton MRSA NARES #1on 07-04-2022 MRSA NARES #1 Culture Observations : NO GROWTH OF MRSA AT 48 HOURS. Normal [facility] Comment on above: Performed By: #### M RSAN1 #### [facility] [address] [place] [address] Dr. Lissett Britton CRPon 05-24-2022 CRP [Mass/Vol] mg/L Normal <=1.0 [facility] Comment on above: Performed By: #### S EDR #### [facility] [address] [place] [address] Dr. Lissett Britton SED RATE WESTERGRENon 2021 SED RATE 17 mm/hr Normal <=20 [facility] Comment on above: Performed By: #### S EDR #### [facility] [address] [place] [address] Dr. Lissett Britton HIP LEFT 1 OR 2 VWS WITH PEL VISon 04-01-2022 HIP LEFT 1 OR 2 VWS WITH PELVIS [facility] Department of Radiology [address] [place] [phone] == Patient Name: JHONATHAN AGUILAR : 1945 Sex: M Age: Race: White Pt. 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 Electronically signed: Yaneli Wallace. Transcribed by: [email or web address], User Resident: Electronically Signed by: YANELI WALLACE @ 04/03/2022 06:52 AM Normal [facility] Comment on above: Order Comment: Evalu ate CBC AUTO DIFFon 02-08-2022 BASO # 0.0 103/ul Normal 0.0-0.1 [facility] Comment on above: Performed By: #### C BC #### [facility] [address] [place] [address] Dr. Lissett Britton Basophils/100 WBC (Bld) 0.8 % Normal 0.2-2.0 [facility] Comment on above: Performed By: #### C BC #### [facility] [address] [place] [address] Dr. Lissett Britton EO # 0.3 103/ul Normal 0.0-0.7 [facility] Comment on above: Performed By: #### C BC #### [facility] [address] [place] [address] Dr. Lissett Britton Eosinophils/100 WBC (Bld) 5.8 % Normal 0.9-7.0 [facility] Comment on above: Performed By: #### C BC #### [facility] [address] [place] [address] Dr. Lissett Britton Erythrocyte distribution width (RBC) [Ratio] 13.0 % Normal 11.0-15.0 [facility] Comment on above: Performed By: #### C BC #### [facility] [address] [place] [address] Dr. Lissett Britton Hematocrit (Bld) [Volume fraction] 43.5 % Normal 42.0-54.0 [facility] Comment on above: Performed By: #### C BC #### [facility] [address] [place] [address] Dr. Lissett Britton Hemoglobin (Bld) [Mass/Vol] 14.5 g/dL Normal 14.0-18.0 [facility] Comment on above: Performed By: #### C BC #### [facility] [address] [place] [address] Dr. Lissett Britton IG # 0.01 10e3/ul Normal 0.00-0.03 [facility] Comment on above: Performed By: #### C BC #### [facility] [address] [place] [address] Dr. Lissett Britton IG % 0.2 % Normal 0.0-0.5 [facility] Comment on above: Performed By: #### C BC #### [facility] [address] [place] [address] Dr. Lissett Britton LYMPH # 1.8 103/ul Normal 1.2-3.8 [facility] Comment on above: Performed By: #### C BC #### [facility] [address] [place] [address] Dr. Lissett Britton Lymphocytes/100 WBC (Bld) 36.6 % Normal 20.5-60.0 [facility] Comment on above: Performed By: #### C BC #### [facility] [address] [place] [address] Dr. Lissett Britton MANUAL DIFF REQ NO Normal [facility] Comment on above: Performed By: #### C BC #### [facility] [address] [address] [address] Lissett Britton MCH (RBC) [Entitic mass] 31.6 pg Normal 25.9-34.0 [facility] Comment on above: Performed By: #### C BC #### [facility] [address] [place] [address] Dr. Lissett Britton MCHC (RBC) [Mass/Vol] 33.3 g/dL Normal 29.9-35.2 [facility] Comment on above: Performed By: #### C BC #### [facility] [address] [place] [address] Dr. Lissett Britton MCV (RBC) [Entitic vol] 94.8 fL Critically high 80.0-94.0 [facility] Comment on above: Performed By: #### C BC #### [facility] [address] [place] [address] Dr. Lissett Britton MONO # 0.4 103/ul Normal 0.3-0.8 [facility] Comment on above: Performed By: #### C BC #### [facility] [address] [place] [address] Dr. Lissett Britton Monocytes/100 WBC (Bld) 8.6 % Normal 1.7-12.0 [facility] Comment on above: Performed By: #### C BC #### [facility] [address] [place] [address] Dr. Lissett Britton NEUT # 2.3 103/ul Normal 1.4-6.5 [facility] Comment on above: Performed By: #### C BC #### [facility] [address] [place] [address] Dr. Lissett Britton Neutrophils/100 WBC (Bld) 48.0 % Normal 43.0-75.0 [facility] Comment on above: Performed By: #### C BC #### [facility] [address] [place] [address] Dr. Lissett Britton Platelet mean volume (Bld) [Entitic vol] 9.0 fL Critically low 9.5-13.5 [facility] Comment on above: Performed By: #### C BC #### [facility] [address] [address] [address] Lissett Britton PLT 157 103/ul Normal 150-450 [facility] Comment on above: Performed By: #### C BC #### [facility] [address] [place] [address] Dr. Lissett Britton RBC 4.59 106/ul Critically low 4.70-6.10 [facility] Comment on above: Performed By: #### C BC #### [facility] [address] [place] [address] Dr. Lissett Britton WBC 4.9 103/ul Normal 4.0-11.0 [facility] Comment on above: Performed By: #### C BC #### [facility] [address] [place] [address] Dr. Lissett Britton CRPon 02-07-2022 CRP [Mass/Vol] mg/L Normal <=1.0 [facility] Comment on above: Performed By: #### C RP #### [facility] [address] [place] [address] Dr. Lissett Britton PROTIMEon 02-07-2022 INR Coag (PPP) [Relative time] 0.96 {INR} Normal [facility] Comment on above: Performed By: #### P TT, PT #### [facility] [address] [place] [address] Dr. Lissett Britton INR GUIDELINES SEE BELOW Normal [facility] Comment on above: Result Comment: ROSENDO RED INR: 2.0 - 3.0 CONDITIONS NOT LISTED BELOW 2.5 - 3.5 FOR PROSTHETIC HEART VALVE REPLACEMENT 2.5 - 3.5 RECURRENT THROMBOSIS Performed By: #### P TT, PT #### [facility] [address] [place] [address] Dr. Lissett Britton PT Coag (PPP) [Time] 10.4 s Normal 9.0-11.6 [facility] Comment on above: Performed By: #### P TT, PT #### [facility] [address] [place] [address] Dr. Lissett Britton PTTon 02-07-2022 aPTT Coag (Bld) [Time] 26.9 s Normal 22.3-36.2 [facility] Comment on above: Performed By: #### P TT, PT #### [facility] [address] [place] [address] Dr. Lissett Britton [facility] SED RATE 14 mm/hr Normal <=20 [facility] Comment on above: Performed By: #### S EDR #### [facility] [address] [place] [address] Dr. Lissett Britton *ANAEROBIC CULTUREon 022 *ANAEROBIC CULTURE Clinical Report: (D) Specimen: SWAB Collected: 12/16/2021 09:00 Status: Final Last Updated: 12/21/2021 08:31 ISO (Final) No Anaerobes Isolated Day 5 Normal [facility] Comment on above: Performed By: #### 3 0312 #### [address] *BODY FLUID CULTUREon 2021 *BODY FLUID CULTURE Clinical Report: (D) Specimen/Source: FLUID/HIP Collected: 12/16/2021 09:00 Status: Final Last Updated: 12/19/2021 06:53 (1) L. HIP GRAM (Final) Quantity Not Sufficient ISO (Final) Enterococcus faecalis Light Growth Results called. Read back by Dr. Cano ([facility]) 11:15 a.m. 12/18/21 ISOLATE: Enterococcus faecalis CONSUELO (mcg/ml) AMPICILLIN (AM) 1 Susceptible VANCOMYCIN (VA) 1 Susceptible Normal [facility] Comment on above: Order Comment: Florence Witt Performed By: #### 3 0318 #### [address] ASPIRATION LARGE JOINTon ASPIRATION LARGE JOINT [facility] Department of Radiology [address] [place] [phone] == Patient Name: JHONATHAN AGUILAR : 1945 Sex: [...] , Side: LEFT Exam: ASPIRATION LARGE JOINT == ASPIRATION LARGE JOINT 12/16/2021 9:15 AM CLINICAL [...] report. Electronically signed: Rosemary Shane. Transcribed by: [email or web address], User Resident: ROSEMARY MORA Electronically Signed by: ROSEMARY SHANE @ 12/16/2021 11:09 AM I personally read this/these film(s) with this resident Normal [facility] Comment on above: Order Comment: , Joshua ointment Date: 12/16/2021 , Body Part: Hip , Side: LEFT , Appointment Date: 12/16/2021 , Body Part: Hip , Side: LEFT HIP LEFT 1 OR 2 VWS WITH PEL VISon 12-03-2021 HIP LEFT 1 OR 2 VWS WITH PELVIS [facility] Department of Radiology [address] [place] [phone] == Patient Name: JHONATHAN AGUILAR : 1945 Sex: [...] LEFT 1 OR 2 VWS WITH PELVIS == HIP LEFT 1 OR 2 VWS WITH [...] report. Electronically signed: Karuna Seymour. Transcribed by: [email or web address], User Resident: SAW MORA Electronically Signed by: KARUNA SEYMOUR @ 12/03/2021 03:03 PM I personally read this/these film(s) with this resident Normal [facility] Comment on above: Order Comment: Evalu ate C REACTIVE PROTEINon 022 CRP [Mass/Vol] 37.5 mg/L High 0.0-7.0 [facility] Comment on above: Performed By: #### 6 1405 #### [facility] [address] [place] [address], [facility] CBC W/DIFFon 11-29-2021 ABS IMM GRANS 0.0 10*3/uL Normal 0.0-0.2 [facility] Comment on above: Performed By: #### 5 0103, [id number] #### [facility] [address] [place] [address], [facility] ABS NEUTROPHILS 4.8 10*3/uL Normal 1.6-7.6 [facility] Comment on above: Performed By: #### 5 0103, 28[address] #### [facility] [address] [facility] [place] [address], [facility] Basophils (Bld) [#/Vol] 0.0 10*3/uL Normal 0.0-0.2 [facility] Comment on above: Performed By: #### 5 0103, [address] #### [facility] [address] [facility] [place] [address], [facility] Basophils/100 WBC (Bld) 0.6 % Normal 0.0-1.0 [facility] Comment on above: Performed By: #### 5 0103, [id number] #### [facility] [address] [facility] [place] [address], [facility] Eosinophils (Bld) [#/Vol] 0.1 10*3/uL Normal 0.0-0.5 [facility] Comment on above: Performed By: #### 5 0103, [id number] #### [facility] [address] Eosinophils/100 WBC (Bld) 1.0 % Normal 0.0-6.0 [facility] Comment on above: Performed By: #### 5 102, 72966 #### [facility] [address] [facility]. [address] Erythrocyte distribution width (RBC) [Ratio] 14.4 % Normal 11.5-15.0 [facility] Comment on above: Performed By: #### 5 102, [id number] #### [facility] [address] Hematocrit (Bld) [Volume fraction] 42.8 % Normal 39.0-50.0 [facility] Comment on above: Performed By: #### 102, [id number] #### [facility] [address] Hemoglobin (Bld) [Mass/Vol] 14.6 g/dL Normal 13.0-17.0 [facility] Comment on above: Performed By: #### 5 102, 34360 #### [facility] [address] IMM PLATELET FRAC 7.5 % High 0.8-6.3 [facility] Comment on above: Performed By: #### 5 102, 67906 #### [facility] [address] [facility]. [address] IMMATURE GRANS 0.3 % Normal 0.0-1.0 [facility] Comment on above: Performed By: #### 5 102, 10340 #### [facility] [address] Lymphocytes (Bld) [#/Vol] 1.5 10*3/uL Normal 1.2-4.0 [facility] Comment on above: Performed By: #### 5 102, 34493 #### [facility] [address] [place] [address], [facility] Lymphocytes/100 WBC (Bld) 21.6 % Normal 20.0-45.0 [facility] Comment on above: Performed By: #### 5 102, 15564 #### [facility] [address] [place] [id number], [facility] MCH (RBC) [Entitic mass] 31.7 pg Normal 27.0-33.0 [facility] Comment on above: Performed By: #### 102, 99831 #### [facility] [address] [facility] [place] [address], [facility] MCHC (RBC) [Mass/Vol] 34.1 g/dL Normal 32.0-35.0 [facility] Comment on above: Performed By: #### 102, 18510 #### [facility] [address] [place] [address], [facility] MCV (RBC) [Entitic vol] 93.0 fL Normal 82.0-98.0 [facility] Comment on above: Performed By: #### 102, 24349 #### [facility] [address] [place] [address], [facility] Monocytes (Bld) [#/Vol] 0.4 10*3/uL Normal 0.1-1.0 [facility] Comment on above: Performed By: #### 102, 23987 #### [facility] [address] [place] [address], [facility] MONOS 6.2 % Normal 5.0-12.0 [facility] Comment on above: Performed By: #### 5 102, 67697 #### [facility] [address] [place] [address], [facility] Neutrophils/100 WBC (Bld) 70.3 % Normal 40.0-72.0 [facility] Comment on above: Performed By: #### , [id number] #### [facility] [address] [place] [address], [facility] Nucleated RBC/100 WBC (Bld) [Ratio] 0 % Normal 0-0 [facility] Comment on above: Performed By: #### 5 010, 57479 #### [facility] [address] [place] [address], [facility] PLAT CNT 124 10*3/uL Low 150-400 [facility] Comment on above: Performed By: #### 5 010, 10887 #### [facility] [address] [place] [address], [facility] RBC (Bld) [#/Vol] 4.60 10*6/uL Normal 4.20-5.70 [facility] Comment on above: Performed By: #### 5 010, 84245 #### [facility] [address] [place] [address], [facility] WBC (Bld) [#/Vol] 6.82 10*3/uL Normal 4.00-10.60 [facility] Comment on above: Performed By: #### 5 0103, 60254 #### [facility] [address] PELVIS WO CONTRASTon 11-16 CT PELVIS WO CONTRAST [facility] Department of Radiology [address] [place] [id number] == Patient Name: JHONATHAN AGUILAR : 1945 Sex: [...] 206 , , , Ordering Provider - JASXON RUDOLPH MD , Exam: CT PELVIS WO CONTRAST == CT PELVIS WO CONTRAST 11/29/2021 1:53 PM [...] details. Electronically signed: Myriam Haas. Transcribed by: [email or web address], User Resident: Electronically Signed by: MYRIAM HAAS @ 11/29/2021 02:00 PM Normal [facility] Comment on above: Order Comment: , Hei ght (ft.): 5 ft 10 in , Weight (lbs): 206 , Height (ft.): 5 ft 10 in , Weight (lbs): 206 , , , Ordering Provider - JAXSON RUDOLPH MD , SEDIMENTATION RATEon 022 SED RATE 10 mm/hr Normal 0-10 [facility] Comment on above: Performed By: #### 5 0103, [id number] #### [facility] [address] Vital Signs Date Time Vital Sign Value Performing Clinician Facility 05-09-2024 12:58-0400 Body weight 97.06 kg TMR TEACHER-C Marla Roseann Work Phone: [facility] 04-25-2024 10:51-0400 Body weight 94.8 kg TMR TEACHER-C Marla Roseann Work Phone: [facility] 04-12-2024 08:59-0400 Diastolic blood pressure 71 mm[Hg] TMR TEACHER-C Marla Roseann Work Phone: [facility] 04-12-2024 08:59-0400 Heart rate 52 /min TMR TEACHER-C Marla Roseann Work Phone: [facility] 04-12-2024 08:59-0400 Respiratory rate 16 /min TMR TEACHER-C Marla Roseann Work Phone: [facility] 04-12-2024 08:59-0400 SaO2% (BldA) [Mass fraction] 96 % TMR TEACHER-C Marla Roseann Work Phone: [facility] 04-12-2024 08:59-0400 Systolic blood pressure 145 mm[Hg] TMR TEACHER-C Marla Roseann Work Phone: [facility] 04-12-2024 08:14-0400 Inhaled oxygen flow rate 8 L/min TMR TEACHER-C Marla Roseann Work Phone: [facility] 04-12-2024 07:21-0400 Body mass index (BMI) [Ratio] 30.3 kg/m2 TMR TEACHER-C Marla Roseann Work Phone: [facility] 04-12-2024 07:04-0400 Body height 179.07 cm TMR TEACHER-C Marla Roseann Work Phone: [facility] 04-12-2024 07:04-0400 Body weight 97.2 kg TMR TEACHER-C Marla Roseann Work Phone: [facility] 04-12-2024 06:07-0400 Body temperature 97.6 [degF] TMR TEACHER-C Marla Roseann Work Phone: [facility] 04-03-2024 08:12-0400 Body height 177.8 cm TMR TEACHER-C Amrla Roseann Work Phone: [facility] 04-03-2024 08:12-0400 Body mass index (BMI) [Ratio] 30.7 kg/m2 TMR TEACHER-C Marla Roseann Work Phone: [facility] 04-03-2024 08:12-0400 Body weight 97 kg TMR TEACHER-C Marla Roseann Work Phone: [facility] 03-19-2024 10:40-0400 Body height 177.8 cm TMR TEACHER-C Marla Roseann Work Phone: [facility] 03-19-2024 10:40-0400 Body mass index (BMI) [Ratio] 30.8 kg/m2 TMR TEACHER-C Marla Roseann Work Phone: [facility] 03-19-2024 10:40-0400 Body weight 97.52 kg TMR TEACHERAntelmo Whitfield Work Phone: [facility] 02-20-2024 08:49-0400 Body height 177.8 cm MD Miguelito Peres Work Phone: [facility] 02-20-2024 08:49-0400 Body weight 97.52 kg MD Miguelito Peres Work Phone: [facility] 01-30-2024 09:32-0400 Body height 177.8 cm MD Miguelito Peres Work Phone: [facility] 01-30-2024 09:32-0400 Body mass index (BMI) [Ratio] 30.3 kg/m2 MD Miguelito Peres Work Phone: [facility] 01-30-2024 09:32-0400 Body weight 96 kg MD Miguelito Peres Work Phone: [facility] 12-12-2023 08:54-0400 Body height 177.8 cm MD Miguelito Peres Work Phone: [facility] 12-12-2023 08:54-0400 Body mass index (BMI) [Ratio] 30.5 kg/m2 MD Miguelito Peres Work Phone: [facility] 12-12-2023 08:54-0400 Body weight 96.61 kg MD Miguelito Peres Work Phone: [facility] 12-11-2023 08:46-0400 Blood Pressure Location German WESTFALL [facility] 12-11-2023 08:46-0400 Body temperature 98.42 [degF] German WESTFALL [facility] 12-11-2023 08:46-0400 Diastolic blood pressure 63 mm[Hg] German WESTFALL [facility] 12-11-2023 08:46-0400 Heart rate 68 /min German WESTFALL [facility] 12-11-2023 08:46-0400 Respiratory rate 16 /min German WESTFALL [facility] 12-11-2023 08:46-0400 Systolic blood pressure 128 mm[Hg] German WESTFALL [facility] 09-15-2023 08:53-0500 Blood Pressure Location German WESTFALL [facility] 09-15-2023 08:53-0500 Body temperature 97.16 [degF] German WESTFALL [facility] 09-15-2023 08:53-0500 Diastolic blood pressure 78 mm[Hg] German WESTFALL [facility] 09-15-2023 08:53-0500 Heart rate 74 /min German WESTFALL [facility] 09-15-2023 08:53-0500 Systolic blood pressure 128 mm[Hg] German WESTFALL [facility] 08-28-2023 08:58-0500 Blood Pressure Location German WESTFALL [facility] 08-28-2023 08:58-0500 Diastolic blood pressure 79 mm[Hg] German WESTFALL [facility] 08-28-2023 08:58-0500 Heart rate 74 /min German WESTFALL [facility] 08-28-2023 08:58-0500 Respiratory rate 16 /min German MALOU [facility] 08-28-2023 08:58-0500 Systolic blood pressure 135 mm[Hg] German WESTFALL [facility] 08-09-2023 09:43-0500 Body temperature 97 [degF] IJEOMA Ruiz MD Work Phone: [facility] 08-09-2023 09:43-0500 Body weight 96.62 kg IJEOMA Ruiz MD Work Phone: [facility] 08-09-2023 09:43-0500 Diastolic blood pressure 73 mm[Hg] IJEOMA Ruiz MD Work Phone: [facility] 08-09-2023 09:43-0500 Heart rate 58 /min IJEOMA Ruiz MD Work Phone: [facility] 08-09-2023 09:43-0500 Respiratory rate 16 /min IJEOMA Ruiz MD Work Phone: [facility] 08-09-2023 09:43-0500 SaO2% (BldA) [Mass fraction] 98 % IJEOMA Ruiz MD Work Phone: [facility] 08-09-2023 09:43-0500 Systolic blood pressure 147 mm[Hg] IJEOMA Ruiz MD Work Phone: [facility] 05-29-2023 08:52-0400 Body temperature 96.69 [degF] IJEOMA Ruiz MD Work Phone: [facility] 05-29-2023 08:52-0400 Body weight 95.25 kg IJEOMA Ruiz MD Work Phone: [facility] 05-29-2023 08:52-0400 Diastolic blood pressure 71 mm[Hg] IJEOMA Ruiz MD Work Phone: [facility] 05-29-2023 08:52-0400 Heart rate 72 /min IJEOMA uRiz MD Work Phone: [facility] 05-29-2023 08:52-0400 Respiratory rate 18 /min IJEOMA Ruiz MD Work Phone: [facility] 05-29-2023 08:52-0400 SaO2% (BldA) [Mass fraction] 97 % IJEOMA Ruiz MD Work Phone: [facility] 05-29-2023 08:52-0400 Systolic blood pressure 144 mm[Hg] IJEOMA Ruiz MD Work Phone: [facility] 05-23-2023 08:35-0400 Body temperature 97.5 [degF] IJEOMA Ruiz MD Work Phone: [facility] 05-23-2023 08:35-0400 Body weight 93.89 kg IJEOMA Ruiz MD Work Phone: [facility] 05-23-2023 08:35-0400 Diastolic blood pressure 74 mm[Hg] IJEOMA Ruiz MD Work Phone: [facility] 05-23-2023 08:35-0400 Heart rate 70 /min IJEOMA Ruiz MD Work Phone: [facility] 05-23-2023 08:35-0400 Respiratory rate 16 /min IJEOMA Ruiz MD Work Phone: [facility] 05-23-2023 08:35-0400 SaO2% (BldA) [Mass fraction] 98 % IJEOMA Ruiz MD Work Phone: [facility] 05-23-2023 08:35-0400 Systolic blood pressure 165 mm[Hg] IJEOMA Ruiz MD Work Phone: [facility] 05-16-2023 08:41-0400 Body temperature 97 [degF] IJEOMA Ruiz MD Work Phone: [facility] 05-16-2023 08:41-0400 Body weight 94.8 kg IJEOMA Ruiz MD Work Phone: [facility] 05-16-2023 08:41-0400 Heart rate 59 /min IJEOMA Ruiz MD Work Phone: [facility] 05-16-2023 08:41-0400 Respiratory rate 16 /min IJEOMA Ruiz MD Work Phone: [facility] 05-16-2023 08:41-0400 SaO2% (BldA) [Mass fraction] 98 % IJEOMA Ruiz MD Work Phone: [facility] 05-08-2023 08:44-0400 Body temperature 97.39 [degF] IJEOMA Ruiz MD Work Phone: [facility] 05-08-2023 08:44-0400 Body weight 93.89 kg IJEOMA Ruiz MD Work Phone: [facility] 05-08-2023 08:44-0400 Diastolic blood pressure 84 mm[Hg] IJEOMA Ruiz MD Work Phone: [facility] 05-08-2023 08:44-0400 Heart rate 68 /min IJEOMA Ruiz MD Work Phone: [facility] 05-08-2023 08:44-0400 Respiratory rate 18 /min IJEOMA Ruiz MD Work Phone: [facility] 05-08-2023 08:44-0400 SaO2% (BldA) [Mass fraction] 97 % IJEOMA Ruiz MD Work Phone: [facility] 05-08-2023 08:44-0400 Systolic blood pressure 172 mm[Hg] IJEOMA Ruiz MD Work Phone: [facility] 05-01-2023 09:18-0400 Body temperature 96.69 [degF] IJEOMA Ruiz MD Work Phone: [facility] 05-01-2023 09:18-0400 Body weight 94.8 kg IJEOMA Ruiz MD Work Phone: [facility] 05-01-2023 09:18-0400 Diastolic blood pressure 80 mm[Hg] IJEOMA Ruiz MD Work Phone: [facility] 05-01-2023 09:18-0400 Heart rate 61 /min IJEOMA Ruiz MD Work Phone: [facility] 05-01-2023 09:18-0400 Respiratory rate 18 /min IJEOMA Ruiz MD Work Phone: [facility] 05-01-2023 09:18-0400 SaO2% (BldA) [Mass fraction] 98 % IJEOMA Ruiz MD Work Phone: [facility] 05-01-2023 09:18-0400 Systolic blood pressure 158 mm[Hg] IJEOMA Ruiz MD Work Phone: [facility] 04-05-2023 13:51-0400 Body height 181 cm IJEOMA Ruiz MD Work Phone: [facility] 04-05-2023 13:51-0400 Body temperature 97.5 [degF] IJEOMA Ruiz MD Work Phone: [facility] 04-05-2023 13:51-0400 Body weight 94.8 kg IJEOMA Ruiz MD Work Phone: [facility] 04-05-2023 13:51-0400 Diastolic blood pressure 89 mm[Hg] IJEOMA Ruiz MD Work Phone: [facility] 04-05-2023 13:51-0400 Heart rate 78 /min IJEOMA Ruiz MD Work Phone: [facility] 04-05-2023 13:51-0400 Respiratory rate 18 /min IJEOMA Ruiz MD Work Phone: [facility] 04-05-2023 13:51-0400 SaO2% (BldA) [Mass fraction] 98 % IJEOMA Ruiz MD Work Phone: [facility] 04-05-2023 13:51-0400 Systolic blood pressure 145 mm[Hg] IJEOMA Ruiz MD Work Phone: [facility] 03-27-2023 09:46-0400 Blood Pressure Location Germanshane WESTFALL [facility] 03-27-2023 09:46-0400 Diastolic blood pressure 88 mm[Hg] German WESTFALL [facility] 03-27-2023 09:46-0400 Heart rate 90 /min German WESTFALL [facility] 03-27-2023 09:46-0400 Respiratory rate 16 /min Germanshane WESTFALL [facility] 03-27-2023 09:46-0400 Systolic blood pressure 138 mm[Hg] German WESTFALL [facility] 03-01-2023 09:02-0400 Blood Pressure Location Germanshane WESTFALL [facility] 03-01-2023 09:02-0400 Diastolic blood pressure 73 mm[Hg] German WESTFALL [facility] 03-01-2023 09:02-0400 Heart rate 63 /min Germanshane WESTFALL [facility] 03-01-2023 09:02-0400 Systolic blood pressure 134 mm[Hg] German WESTFALL [facility] 08-24-2021 10:00-0500 Body height 180.34 cm Winter Villalobos Other [facility] Other 08-24-2021 10:00-0500 Body mass index (BMI) [Ratio] 29.01 kg/m2 Winter Villalobos Other [facility] Other 08-24-2021 10:00-0500 Body weight 94.35 kg Winter Villalobos Other [facility] Other 08-24-2021 10:00-0500 Diastolic blood pressure 72 mm[Hg] Winter Villalobos Other [facility] Other 08-24-2021 10:00-0500 Systolic blood pressure 138 mm[Hg] Winter Villalobos Other [facility] Other Encounters Encounter Date Encounter Type Care Provider Facility Start: 01-21-2025 ambulatory Marla Whitfield Facility: [facility] Start: 07-01-2024 ambulatory German Mooney ty:[facility] Start: 05-13-2024 End: 05-13-2024 ambulatory TMR TEACHER-C Marla Ervin Roseann Work Phone: [facility] Work Phone: Start: 05-13-2024 End: 05-13-2024 Patient encounter procedure TMR TEACHER-C Marla Roseann Work Phone: [facility] Work Phone: Start: 05-09-2024 End: 05-09-2024 ambulatory TMR TEACHER-C Marla Ervin Roseann Work Phone: [facility] Work Phone: Start: 05-09-2024 End: 05-09-2024 Patient encounter procedure TMR TEACHER-C Marla Roseann Work Phone: [facility] Work Phone: Start: 05-09-2024 End: 05-09-2024 ambulatory CAIT CLAYTON Not Available Start: 04-25-2024 End: 04-25-2024 ambulatory TMR TEACHER-C Marla Ervin Roseann Work Phone: [facility] Work Phone: Start: 04-25-2024 End: 04-25-2024 Patient encounter procedure TMR TEACHER-C Marla Roseann Work Phone: [facility] Neurosurgery Work Phone: Start: 04-20-2024 Non-patient / Non-visit TMR TEACHER-C Marla Roseann Work Phone: [facility] Neurosurgery Work Phone: Start: 04-12-2024 End: 04-12-2024 Admission to same day surgery center TMR TEACHER-C Marla Roseann Work Phone: [facility] [place] Start: 04-12-2024 End: 04-12-2024 ambulatory TMR TEACHER-C Marla Aziza Roseann Work Phone: [facility] Work Phone: Start: 04-03-2024 End: 04-03-2024 ambulatory TMR TEACHER-C Marla Aziza Roseann Work Phone: [facility] Work Phone: Start: 04-03-2024 End: 04-03-2024 Patient encounter procedure TMR TEACHER-C Marla Roseann Work Phone: [facility] Work Phone: Start: 03-29-2024 End: 03-29-2024 Patient encounter procedure TMR TEACHER-C Marla Roseann Work Phone: [facility] Work Phone: Start: 03-29-2024 End: 03-29-2024 ambulatory TMR TEACHER-C Marla Aziza Roseann Work Phone: [facility] Work Phone: Start: 03-19-2024 End: 03-19-2024 ambulatory TMR TEACHER-C Marla Aziza Roseann Work Phone: [facility] Work Phone: Start: 03-19-2024 End: 03-19-2024 Patient encounter procedure TYLER-Austin Whitfield Work Phone: [facility] Work Phone: Start: 03-18-2024 End: 03-18-2024 ambulatory MELLY SRIVASTAVALELAND [facility] Start: 02-23-2024 End: 02-23-2024 ambulatory Jennifer RUIZ Facility:[facility] Start: 02-22-2024 End: 02-22-2024 ambulatory CAITTay CLAYTON Not Available Start: 02-20-2024 End: 02-20-2024 Patient encounter procedure MD Miguelito Peres Work Phone: [facility] [place] Work Phone: Start: 02-20-2024 End: 02-20-2024 ambulatory MD Miguelito Peres Work Phone: [facility] Work Phone: Start: 02-19-2024 End: 02-19-2024 ambulatory Miguelito Peres Facility:[facility] Start: 02-16-2024 Telephone encounter G Kanu Ruiz MD Work Phone: [facility] Comment on above: Orders Start: 02-15-2024 Telephone encounter Jennifer Ruiz MD Work Phone: [facility] Comment on above: Orders Start: 02-15-2024 End: 02-15-2024 ambulatory MEHRAN LEE Not Available Start: 01-30-2024 End: 01-30-2024 Patient encounter procedure MD Miguelito Peres Work Phone: [facility] Work Phone: Start: 01-01-2024 End: 01-01-2024 ambulatory MD Miguelito Peres Work Phone: [facility] Work Phone: Start: 01-01-2024 End: 01-01-2024 Patient encounter procedure MD Miguelito Peres Work Phone: [facility] Work Phone: Start: 12-14-2023 End: 12-14-2023 ambulatory CAIT CLAYTON Not Available Start: 12-12-2023 End: 12-12-2023 ambulatory MD Miguelito Peres Work Phone: [facility] Work Phone: Start: 12-12-2023 End: 12-12-2023 Patient encounter procedure MD Miguelito Peres Work Phone: [facility] Work Phone: Start: 12-11-2023 End: 12-11-2023 Lab Drop off German WESTFALL [facility] Start: 12-11-2023 End: 12-11-2023 ambulatory German WESTFALL Facility[facility] Start: 12-11-2023 End: 12-11-2023 Patient encounter procedure German WESTFALL [facility] Start: 12-08-2023 End: 12-08-2023 ambulatory MD Miguelito Peres Work Phone: [facility] Work Phone: Start: 12-08-2023 End: 12-08-2023 Patient encounter procedure MD Miguelito Peres Work Phone: [facility] Work Phone: Start: 12-01-2023 End: 12-01-2023 ambulatory Marla Whitfield Facility:[facility] Margaret torres Start: 11-09-2023 End: 11-09-2023 ambulatory MELLY MATA [facility] Start: 10-23-2023 End: 10-23-2023 ambulatory JUAN RAMON GODFREY [facility] Start: 10-05-2023 End: 10-05-2023 ambulatory CAIT CLAYTON Not Available Start: 09-15-2023 End: 09-15-2023 ambulatory Germanshane WESTFALL Facility:[facility] Start: 09-15-2023 End: 09-15-2023 Patient encounter procedure German WESTFALL [facility] Start: 09-07-2023 End: 09-07-2023 ambulatory Jennifer RUIZ Facility:[facility] Start: 08-28-2023 End: 08-28-2023 Patient encounter procedure German WESTFALL [facility] Start: 08-28-2023 End: 08-28-2023 ambulatory Germanshane WESTFALL Facility:[facility] Start: 08-24-2023 End: 08-24-2023 ambulatory IJEOMA RUIZ Facility:[facility] Start: 08-24-2023 End: 08-24-2023 Subsequent hospital visit by physician Pet Ct Scan Chelsie Shah Work Phone: Radiology Pet CT Start: 08-09-2023 End: 08-09-2023 ambulatory Jennifer RUIZ Facility:[facility] Start: 08-09-2023 End: 08-09-2023 Patient encounter procedure Jennifer Ruiz MD Work Phone: Radiation Oncology Comment on above: Malignant neoplasm o f prostate (HCC) (Primary Dx) Start: 08-03-2023 End: 08-03-2023 ambulatory German WESTFALL Facility:[facility] Start: 08-03-2023 End: 08-03-2023 Patient encounter procedure German R WESTFALL [facility] Start: 08-02-2023 End: 08-02-2023 ambulatory German Darrian WESTFALL Facility:[facility] Start: 08-02-2023 End: 08-02-2023 Patient encounter procedure German Darrian WESTFALL [facility] Start: 07-27-2023 End: 07-27-2023 ambulatory Jennifer RUIZ Facility:[facility] Start: 07-27-2023 End: 07-27-2023 Patient encounter procedure Jennifer Ruiz MD Work Phone: Radiation Oncology Comment on above: Malignant neoplasm o f prostate (HCC) (Primary Dx) Start: 07-27-2023 End: 07-27-2023 ambulatory German WESTFALL Facility:[id number] Start: 07-17-2023 Patient encounter procedure Jennifer Ruiz MD Work Phone: [facility] Start: 07-17-2023 Radiation Oncology Note Jennifer Ruiz MD Work Phone: Radiation Oncology Comment on above: Treatment Planning Start: 07-05-2023 Patient encounter procedure Jennifer Ruiz MD Work Phone: [facility] Start: 07-05-2023 Radiation Oncology Note Jennifer Ruiz MD Work Phone: Radiation Oncology Comment on above: Simulation Note Start: 07-05-2023 End: 07-05-2023 ambulatory Jennifer RUIZ Facility:[facility] Start: 06-02-2023 Patient encounter procedure Jennifer Ruiz MD Work Phone: [employer] Start: 06-02-2023 Radiation Oncology Note Jennifer Ruiz MD Work Phone: Radiation Oncology Comment on above: Completion Note Start: 06-02-2023 End: 06-02-2023 ambulatory Jennifer RUIZ Facility:[facility] Start: 06-01-2023 End: 06-01-2023 ambulatory Jennifer RUIZ Facility:[facility] Start: 05-31-2023 End: 05-31-2023 ambulatory Jennifer RUIZ Facility:[facility] Start: 05-30-2023 End: 05-30-2023 ambulatory Jennifer RUIZ Facility:[facility] Start: 05-29-2023 End: 05-29-2023 Patient encounter procedure Jennifer Ruiz MD Work Phone: Radiation Oncology Comment on above: Malignant neoplasm o f prostate (HCC) (Primary Dx) Start: 05-29-2023 End: 05-29-2023 ambulatory Jennifer RUIZ Facility:[facility] Start: 05-26-2023 End: 05-26-2023 ambulatory Jennifer RUIZ Facility:[facility] Start: 05-25-2023 End: 05-25-2023 ambulatory Jennifer RUIZ Facility:[facility] Start: 05-24-2023 End: 05-24-2023 ambulatory Jennifer RUIZ Facility:[facility] Start: 05-23-2023 End: 05-23-2023 Patient encounter procedure Jennifer Ruiz MD Work Phone: Radiation Oncology Comment on above: Malignant neoplasm o f prostate (HCC) (Primary Dx) Start: 05-23-2023 End: 05-23-2023 ambulatory Jennifer RUIZ Facility:[facility] Start: 05-19-2023 End: 05-19-2023 ambulatory Jennifer RUIZ Facility:[facility] Start: 05-18-2023 End: 05-18-2023 ambulatory Jennifer RUIZ Facility:[facility] Start: 05-17-2023 Patient encounter procedure [facility] Provider [facility] Start: 05-17-2023 End: 05-17-2023 ambulatory Jennifer RUIZ Facility:[facility] Start: 05-16-2023 End: 05-16-2023 Patient encounter procedure Jennifer Ruiz MD Work Phone: Radiation Oncology Comment on above: Malignant neoplasm o f prostate (HCC) (Primary Dx) Start: 05-16-2023 End: 05-16-2023 ambulatory Jennifer RUIZ Facility:[facility] Start: 05-12-2023 End: 05-12-2023 ambulatory Jennifer RUIZ Facility:[facility] Start: 05-10-2023 End: 05-10-2023 ambulatory Jennifer RUIZ Facility:[facility] Start: 05-09-2023 End: 05-09-2023 ambulatory Jennifer RUIZ Facility:[facility] Start: 05-08-2023 End: 05-08-2023 Patient encounter procedure Jennifer Ruiz MD Work Phone: Radiation Oncology Comment on above: Malignant neoplasm o f prostate (HCC) (Primary Dx); Platelets decreased (HCC) Start: 05-08-2023 End: 05-08-2023 ambulatory Jennifer RUIZ Facility:[facility] Start: 05-05-2023 End: 05-05-2023 ambulatory Jennifer RUIZ Facility:[facility] Start: 05-04-2023 End: 05-04-2023 Patient encounter procedure [facility] Work Phone: Radiation Oncology Comment on above: Malignant neoplasm o f prostate (HCC) (Primary Dx) Start: 05-04-2023 End: 05-04-2023 ambulatory Jennifer RUIZ Facility:[facility] Start: 05-03-2023 End: 05-03-2023 ambulatory Jennifer RUIZ Facility:[facility] Start: 05-02-2023 End: 05-02-2023 ambulatory Jennifer RUIZ Facility:[facility] Start: 05-01-2023 End: 05-01-2023 Patient encounter procedure Jennifer Ruiz MD Work Phone: Radiation Oncology Comment on above: Malignant neoplasm o f prostate (HCC) (Primary Dx) Start: 05-01-2023 End: 05-01-2023 ambulatory Jennifer RUIZ Facility:[facility] Start: 04-28-2023 End: 04-28-2023 ambulatory Jennifer RUIZ Facility:[facility] Start: 04-27-2023 End: 04-27-2023 ambulatory Jennifer RUIZ Facility:[facility] Start: 04-26-2023 End: 04-26-2023 ambulatory Jennifer RUIZ Facility:[facility] Start: 04-26-2023 End: 04-26-2023 Patient encounter procedure Jennifer Ruiz MD Work Phone: Radiation Oncology Comment on above: Malignant neoplasm o f prostate (HCC) (Primary Dx) Start: 04-25-2023 Telephone encounter Jennifer Ruiz MD Work Phone: Radiation Oncology Comment on above: Orders Start: 04-18-2023 End: 04-18-2023 Subsequent hospital visit by physician Jennifer Ruiz MD Work Phone: Radiology Pet CT Start: 04-18-2023 End: 04-19-2023 ambulatory Jennifer RUIZ Facility:[facility] Start: 04-18-2023 Patient encounter procedure Jennifer Ruiz MD Work Phone: [facility] Start: 04-18-2023 Radiation Oncology Note Jennifer Ruiz MD Work Phone: Radiation Oncology Comment on above: Simulation Note Start: 04-17-2023 End: 04-17-2023 ambulatory [facility] Start: 04-05-2023 End: 04-05-2023 ambulatory GERMNA WESTFALL Facility:[facility] Start: 04-05-2023 End: 04-05-2023 Patient encounter procedure Jennifer Ruiz MD Work Phone: Radiation Oncology Comment on above: Malignant neoplasm o f prostate (HCC) (Primary Dx) Start: 03-27-2023 End: 03-27-2023 ambulatory German WESTFALL Facility:[facility] Start: 03-27-2023 End: 03-27-2023 Patient encounter procedure German WESTFALL [facility] Start: 03-15-2023 End: 03-15-2023 ambulatory German WESTFALL Facility:[facility] Start: 03-15-2023 End: 03-15-2023 ambulatory Marla Whitfield Facility:[facility] Margaret torres Start: 03-07-2023 End: 03-07-2023 ambulatory German WESTFALL Facility[facility] Start: 03-07-2023 End: 03-07-2023 Patient encounter procedure German WESTFALL [facility] Start: 03-01-2023 End: 03-01-2023 ambulatory German WESTFALL Facility: [facility] Start: 03-01-2023 End: 03-01-2023 Patient encounter procedure German WESTFALL [facility] Start: 02-15-2023 End: 02-15-2023 Lab Drop off Marla L Roseann [facility] Start: 02-10-2023 End: 02-10-2023 Lab Drop off Amrla L Roseann [facility] Start: 10-26-2022 End: 11-26-[address] UDAY WILSON . Facility:[facility] Start: 10-10-2022 End: 10-11-[address] DOCTOR PATEL Facility:[facility] Start: 08-23-2022 End: 08-23-2022 ambulatory MD Uday Wilson Work Phone: [facility] Work Phone: Start: 08-23-2022 End: 08-23-2022 Patient encounter procedure MD Uday Wilson Work Phone: [facility] Start: 07-04-2022 End: 07-05-[address] UDAY WILSON . Facility:[facility] Start: 05-24-2022 End: 05-25-[address] DOCTOR PATEL Facility:[facility] Start: 02-08-2022 End: 02-09-[address] UDAY WILSON . Facility:[facility] Start: 02-07-2022 End: 02-08-[address] UDAY WILSON . Facility:[facility] Start: 08-24-2021 End: 08-24-2021 ambulatory Winter Villalobos Other [facility] Other Start: 08-24-2021 Office outpatient visit 25 minutes Winter iVllalobos [facility] Neurosurgery Procedures Date Procedure Procedure Detail Performing Clinician Start: 04-12-2024 Decompression of med donta nerve TMR TEACHER-C Marla Whitfield Work Phone: Start: 02-20-2024 XR pre/post mri xray MD Miguelito Peres Work Phone: Start: 02-20-2024 MRI of cervical spin e without contrast MD Miguelito Peres Work Phone: Start: 12-08-2023 X-ray of lumbar spin e, four views MD Miguelito Peres Work Phone: Start: 07-27-2023 Brachytherapy German W XAVI Start: 05-04-2023 Blood count complete auto&auto difrntl [...] Excision mid back H/O: artificial joint Winter jefferson Other Repair of hip Marla Roseann Surgical procedure Marla Schw ab Comment on above: back at age 4 Plan of Treatment Date Care Activity Detail Author Start: 03-18-2027 Urine microalbumin profile DTaP,Tdap,Td Vaccine (2 - Td or Tdap) [facility] Start: 08-22-2024 End: 08-22-2024 Patient encounter procedure 08/22/2024 9:45 AM EST Office Visit Radiation Oncology [address] [place] [address] [place] [address] Jennifer Ruiz MD [address] [place] [address] Followup Radiation Oncology Comment on above: Followup Start: 08-13-2024 End: 08-13-2024 Patient encounter procedure 08/13/2024 9:30 AM EST Office Visit [facility] [address] [place] [address] lab [facility] Comment on above: lab Start: 05-19-2024 Covid-19 Vaccine () Covid-19 Vaccine () [facility] Start: 05-19-2024 Influenza vaccination Influenza Vacc ine (#1) [facility] Start: 04-12-2024 End: 04-12-2024 [facility] Start: 02-23-2024 End: 02-23-2024 Patient encounter procedure 02/23/2024 8:45 AM EDT Office Visit Radiation Oncology [address] [address] Jennifer Ruiz MD [address] [place] [address] [place] [address] Followup Radiation Oncology Comment on above: Followup Start: 02-16-2024 End: 05-17-2024 Prostate specific Ag [Mass/volume] in Serum or Plasma PROSTATE-SPECIFIC ANTIGEN DIAGNOSTIC Lab Routine Malignant neoplasm of prostate (HCC) Expected: 02/16/2024, Expires: 05/17/2024 [facility] Work Phone: Comment on above: Expected: 02/16/2024 , Expires: 05/17/2024 Start: 01-30-2024 Patient referral [facility] Work Phone: Start: 12-12-2023 Patient referral [facility] Work Phone: Start: 09-18-2023 Advance Directive Discussion Advance Directive Discussion [facility] Start: 09-18-2023 Behavioral Health Screening Behavioral Health Screening [facility] Start: 09-08-2023 End: 12-08-2023 Prostate specific Ag [Mass/volume] in Serum or Plasma PSA/PROSTSPECAG DIAG Lab Routine Malignant neoplasm of prostate (HCC) Expected: 09/08/2023, Expires: 12/08/2023 [facility] Work Phone: Comment on above: Expected: 09/08/2023 , Expires: 12/08/2023 Start: 05-19-2023 Covid-19 Vaccine () Covid-19 Vaccine () [facility] Start: 05-19-2023 Influenza vaccination C [facility] Start: 05-04-2023 End: 07-04-2023 CBC W Auto Differential panel - Blood CBC + DIFF Lab Routine Malignant neoplasm of prostate (HCC) Expected: 05/04/2023, Expires: 07/04/2023 [facility] Work Phone: Comment on above: Expected: 05/04/2023 , Expires: 07/04/2023 Start: 09-18-2022 ADVANCE DIRECTIVE DISCUSSION ADVANCE DIRECTIVE DISCUSSION [facility] Start: 09-18-2022 DEPRESSION ASSESSMENT DEPRESSION ASS ESSMENT [facility] Start: 09-24-2021 COVID-19 VACCINE (4 - Pfizer series) COVID-19 VACCINE (4 - Pfizer series) [facility] Start: 07-10-2020 Shingrix Vaccine (2 of 3) Shingrix Vaccine (2 of 3) [facility] Start: 2012 Pneumococcal Vaccine : 65+ (1 - PCV) Pneumococcal Vaccine: 65+ (1 - PCV) [facility] Start: 2012 PNEUMOCOCCAL: 65+ (1 - PCV) PNEUMOCOCCAL: 65+ (1 - PCV) [facility] Start: 2007 RSV Vaccine (1 - 1-d ose 60+ series) RSV Vaccine (1 - 1-dose 60+ series) [facility] Start: 1997 SHINGRIX VACCINE (1 of 2) SHINGRIX VACCINE (1 of 2) [facility] Start: 1992 COLOGUARD (FIT-DNA) COLOGUARD (FIT-D NA) [facility] Start: 1992 Colonoscopy COLONOSCOPY [facility] Start: 1992 COLORECTAL CANCER SCREENING COLORECTAL CANCER SCREENING [facility] Start: [address] COLONOGRAPHY [facility] Start: 1992 DIABETES SCREEN DIABETES SCREEN [facility] Start: 1992 Diabetes Screening Diabetes Screenin g [facility] Start: 1992 FECAL OCCULT BLOOD FECAL OCCULT BLOO D [facility] Start: 1992 SIGMOIDOSCOPY SIGMOIDOSCOPY [facility] Start: 1982 Lipid 1996 panel - S calixt[place] or Plasma Lipid Screening [facility] Start: 1982 LIPID SCREEN LIPID SCREEN [facility] Start: 1966 Urine microalbumin profile [facility] Start: 1965 Anxiety Screening Anxiety Screening [facility] Start: 1965 Depression Screening Depression Scre ening [facility] Start: 1965 HEPATITIS C SCREENING HEPATITIS C [facility] Start: 1965 Hepatitis C screening Hepatitis C [facility] Patient Education [facility] Work Phone: Patient referral [facility] Work Phone: [facility] Immunizations Immunization Date Immunization Notes Care Provider [facility] 07-21-2023 influenza virus vaccine, unspecified formulation German WESTFALL [facility] 07-26-2022 influenza virus vaccine, unspecified formulation Marla Roseann [facility] 07-30-2021 SARS-CoV-2 (COVID-19 ) mRNA BNT-162b2 vax Marla Roseann [facility] Comment on above: Result Comment: 2022: TPV70 11-10-2020 SARS-CoV-2 (COVID-19 ) mRNA BNT-162b2 vax Marla Roseann [facility] Comment on above: Result Comment: 2022: TPV70 10-20-2020 SARS-CoV-2 (COVID-19 ) mRNA BNT-162b2 vax Marla Roseann [facility] Comment on above: Result Comment: 2022: TPV70 05-15-2020 zoster vaccine, live Marla Sc hwab [facility] 11-13-2019 zoster vaccine, live Marla Sc hwab [facility] 11-06-2019 influenza virus vaccine, unspecified formulation Marla Roseann [facility] 11-21-2018 pneumococcal polysaccharide vaccine, 23 valent Marla Roseann [facility] 08-20-2018 influenza virus vaccine, unspecified formulation Marla Roseann [facility] 06-18-2018 influenza virus vaccine, unspecified formulation Pet Mc Work Phone: [facility] 06-20-2017 influenza, high dose seasonal, preservative-free Pet Mc Work Phone: [facility] 06-20-2017 pneumococcal conjuga te vaccine, 13 valent Marla Roseann [facility] 03-18-2017 tetanus toxoid, redu bridget diphtheria toxoid, and acellular pertussis vaccine, adsorbed Pet Mc Work Phone: [facility] 07-13-2016 influenza virus vaccine, unspecified formulation Marla Roseann [facility] 08-08-2014 influenza virus vaccine, unspecified formulation Marla Roseann [facility] 08-07-2013 influenza virus vaccine, unspecified formulation Marla Roseann [facility] NEGATED: Highlighted row has not occurred!08-27-2020 Fluzone QIV High-Dose 65YR+ MD Uday Wilson Work Phone: [facility] Payers Date Payer Category Payer Medicare [id number] 2017 Medicare HUMANA MEDICARE HUMANA MEDICARE PPO [id number] 2017-Present [phone] [address] [address] [place] [address] PPO [id number] 1959 Medicare [id number] [id number] 1947 Unknown [id number] 2.16.840.1.140496.3.579.2.5 1947 Unknown [id number] 2.16.840.1.118845.3.579.2.5 1947 Unknown [id number] 2.16.840.1.762939.3.579.2.5 1947 Unknown [id number] 2.16.840.1.882138.3.579.2.5 1947 Unknown [id number] 2.16.840.1.527731.3.579.2.5 1947 Unknown [id number] 2.16.840.1.298467.3.579.2.5 1947 Unknown [id number] 2.16.840.1.597325.3.579.2.7 1947 Unknown [id number] 2.16.840.1.644216.3.579.2.7 1947 Unknown [id number] 2.16.840.1.122109.3.579.2.7 1947 Unknown [id number] 2.16.840.1.074381.3.579.2.7 1947 Unknown [id number] 2.16.840.1.286130.3.579.2.7 1947 Unknown [id number] 2.16.840.1.046976.3.579.2.7 1947 Unknown [id number] 2.16.840.1.152137.3.579.2.7 1947 Unknown [id number] 2.16.840.1.669460.3.579.2.7 1947 Unknown [id number] 2.16.840.1.516050.3.579.2.7 1947 Unknown [id number] 2.16.840.1.836689.3.579.2.7 1947 Unknown [id number] 2.16.840.1.349858.3.579.2.7 1947 Unknown [id number] 2.16.840.1.511556.3.579.2.7 1947 Unknown [id number] 2.16.840.1.212052.3.579.2.7 1947 Unknown [id number] 2.16.840.1.112220.3.579.2.7 1947 Unknown [id number] 2.16.840.1.376106.3.579.2.7 1947 Unknown [id number] 2.16.840.1.827328.3.579.2.7 1947 Unknown [id number] 2.16.840.1.273121.3.579.2.7 1947 Unknown [id number] 2.16.840.1.685234.3.579.2.7 1947 Unknown [id number] 2.16.840.1.533910.3.579.2.7 27 1947 Unknown [id number] 2.16.840.1.663773.3.579.2.1 259 1947 Unknown [id number] 2.16.840.1.868652.3.579.2.1 259 1947 Unknown [id number] 2.16.840.1.902334.3.579.2.1 259 1947 Unknown [id number] 2.16.840.1.275135.3.579.2.1 259 1947 Unknown [id number] 2.16.840.1.166545.3.579.2.1 259 Self-pay Self Pay [id number] Unknown [facility] [id number] Social History Date Type Detail Facility Start: 04-05-2023 End: 08-09-2023 Sex Assigned At [facility] Start: 08-26-2020 End: 04-05-2023 Tobacco smoking status NHIS Ex-smoker (finding) [facility] Start: 1945 Sex Assigned At Male F [facility] Start: 09-18-1967 History of tobacco use Current smoke r [facility] Start: 09-18-1967 History of tobacco use Cigarette Smo ker [facility] History of tobacco use Cigar Smoker [place] Start: 04-05-2023 End: 08-09-2023 Cigarettes smoked current (pack per day) - Reported 0.5 [facility] Start: 04-05-2023 Tobacco use and exposure User of smokeless tobacco [facility] Start: 04-05-2023 End: 08-09-2023 Alcohol intake Ex-drinker (finding) [facility] National Score (1-10 0), lower number is lower risk 61 [facility] Start: 1945 Sex Assigned At Not on file C [facility] Medical Equipment Procedure Code Equipment Code Equipment Origin al Text Equipment Identifier Dates Fusion, spine, lumbar, XLIF STRATOFUSE DBM 10CC FDA Start: 08-26-2020 Fusion, spine, lumbar, XLIF Bone-screw internal spinal fixation system, non-sterile [id number] FDA Start: 08-26-2020 Fusion, spine, lumbar, XLIF Orthopaedic bone screw, non-bioabsorbable, non-sterile [id number] FDA Start: 08-26-2020 Fusion, spine, lumbar, XLIF Orthopaedic bone screw, non-bioabsorbable, non-sterile [id number] FDA Start: 08-26-2020 Fusion, spine, lumbar, XLIF STRATOFUSE DBM 10CC FDA Start: 08-26-2020 Fusion, spine, lumbar, XLIF Bone-screw internal spinal fixation system, non-sterile [id number] FDA Start: 08-26-2020 Fusion, spine, lumbar, XLIF Bone-screw internal spinal fixation system, non-sterile [id number] FDA Start: 08-26-2020 Fusion, spine, lumbar, XLIF STRATOFUSE DBM 5CC FDA Start: 08-26-2020 Fusion, spine, lumbar, XLIF Spinal fusion graft kit [id number] FDA Start: 08-26-2020 Fusion, spine, lumbar, XLIF Spinal fusion graft kit [id number] FDA Start: 08-26-2020 Fusion, spine, lumbar, XLIF Metallic spinal fusion cage, non-sterile [id number] FDA Start: 08-26-2020 Fusion, spine, lumbar, XLIF Metallic spinal fusion cage, non-sterile [id number] FDA Start: 08-26-2020 Fusion, spine, lumbar, XLIF Metallic spinal fusion cage, non-sterile [id number] FDA Start: 08-26-2020 Fusion, spine, lumbar, XLIF [...] XLIF STRATOFUSE DBM 5CC FDA Start: 08-26-2020 Goals Date Patient Goal Desired Activity /State Functional Status Date Assessment Result Facility 12-11-2023 Functional Status N/A [facility] 09-15-2023 Functional Status N/A [facility] 08-28-2023 Functional Status N/A [facility] 03-27-2023 Functional Status N/A [facility] 03-07-2023 Functional Status N/A [facility] 03-01-2023 Functional Status N/A [facility] Clinical Notes 08-01-2016 to 03-18-2024 Telephone Encounter - Angela Norris MA - 02/16/2024 1:39 PM EDTTelephone Encounter - Angela Norris MA - 02/16/2024 1:39 PM EDTTelephone Encounter - Dara Russell LPN - 02/15/2024 3:57 PM EDT Note Date & Type Note Facility 03-18-2024 Note Infectious Diseases - clinic Progress Note - Patient name: Jhonathan Aguilar Patient Today's Date and Time: 03/18/2024, 4:41 PM Assessment/Plan Impression: Enterococcus fecalis Left hip [...] with e fecalis and 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 Temperature Range: Temp: 36.8 ???C (98.3 ???F) General Appearance: Awake, alert, and in [...] No results found for any visits on 03/18/24. Medications: This progress note was completed using a voice referral manager system. Every effort was made to ensure accuracy; however, inadvertent computerized referral manager errors may be present. Thank you for allowing us to participate in the care of this patient. Thank you for allowing me to see the patient Please call for any questions or concerns, Melly Mata MD [place] Infectious diseases P:[phone] [facility] 02-16-2024 Telephone encounter Note PSA order faxed to [facility]. Angela Norris MA [facility] 02-16-2024 Miscellaneous Notes PSA order faxed to [facility]. Angela Norris MA documented in this encounter [facility] 02-15-2024 Telephone encounter Note Please sign pended PSA order for upcoming follow up. Please fax PSA order to [facility] per patient request. Dara Russell RN [facility] 02-15-2024 Miscellaneous Notes Please sign pended PSA order for upcoming follow up. Please fax PSA order to [facility] per patient request. Dara Russell RN documented in this encounter [facility] 12-11-2023 Hospital Discharge instructions Patient Education 12/11/2023 [...] stress of having cancer. General instructions Take whpo-dsx-iomwbeh and prescription medicines only as told by your health care provider. If you have to go to the hospital, notify your cancer specialist (oncologist). Keep all follow-up visits. This is important. Where to find more information [place] [employer]: www.cancer.org [place] Society of Clinical Oncology: www.cancer.net National Cancer [place]: www.cancer.gov Contact a health care provider if: [...] provider. Document Revised: 12/01/2021 Document Reviewed: 12/01/2021 Elsevier Patient Education 2022 World BX. Follow Up Care 09/15/2023 09:43:20 With:MALOU MCGREGOR, German Colmenares, URL Address: [address] [place] [address] [place] [address]- When: Unknown [facility] 11-09-2023 Note Infectious Diseases - clinic Progress [...] progress note was completed using a voice referral manager system. Every effort was made to ensure accuracy; however, inadvertent computerized referral manager errors may be present. Thank you for allowing us to participate in the care of this patient. Thank you for allowing me to see the patient Please call for any questions or concerns, Melly Mata MD [place] Infectious diseases P:[phone] [facility] 10-23-2023 Note Orthopedic Surgery Subjective Chief [...] hip joint. Dr. Juan Ramon Godfrey MD MRCSEd Operations Logistics Analyst orthopedic surgery Adult Reconstruction and Trauma [facility]. [facility] 09-15-2023 Hospital Discharge instructions Patient Education [...] under a microscope. This is called the Flowery Branch score and the total score can range from 6 10, indicating how likely it is that the cancer will spread (metastasize) to other parts of the body. The higher the score, the greater the likelihood that the cancer will spread. Flowery Branch 6 or lower: This indicates that the [...] stress of having cancer. General instructions Take lbeu-rwd-ownsxyv and prescription medicines only as told by your health care provider. If you have to go to the hospital, notify your cancer specialist (oncologist). Keep all follow-up visits. This is important. Where to find more information [place] [employer]: www.cancer.org [place] Society of Clinical Oncology: www.cancer.net National Cancer [place]: www.cancer.gov Contact a health care provider if: [...] provider. Document Revised: 12/01/2021 Document Reviewed: 12/01/2021 Care IT Patient Education 2022 World BX. Follow Up Care 03/27/2023 11:11:43 With:MALOU MCGREGOR, German Colmenares, URL Address: [address] [place], [place] [address]- When: Unknown [facility] 09-07-2023 Note HNO ID: [id number] Author: Jennifer Ruiz MD Service: ? Author Type: Physician Type: Progress Notes Filed: 09/14/2023 3:22 PM Note Text: Radiation Oncology - Follow Up Note PATIENT NAME: Jhonathan Aguilar PATIENT DIAGNOSIS: Prostate adenocarcinoma, initial PSA 26.2, biopsy Flowery Branch score 4 + 4 = 8 (grade [...] ASSESSMENT/PLAN: Prostate adenocarcinoma, initial PSA 26.2, biopsy Flowery Branch score 4 + 4 = 8 (grade [...] by: Jennifer Ruiz MD cc: Dr. Westfall [facility] 08-28-2023 Hospital Discharge instructions Patient Education [...] including vitamins, herbs, eye drops, creams, and xgdm-tng-eypioxn medicines. Any problems you or family members [...] provider tells you to take them. ?Taking igvh-yqx-ylqsdtz medicines, vitamins, herbs, and supplements. Follow your [...] provider. Document Revised: 12/01/2021 Document Reviewed: 12/01/2021 Care IT Patient Education 2022 World BX. Follow Up Care 06/20/2023 10:40:19 With:MALOU MCGREGOR, German Colmenares, URL Address: [facility] [address] , [place] [address]- When:Within 2 Week(s) Comments:appt made for 09/15/23 w/PSA and Lupron [facility] 08-24-2023 Note HNO ID: [id number] Author: Jennifer Ruiz MD Service: ? Author Type: Physician Type: Progress Notes Filed: 09/13/2023 12:32 AM Note Text: Patient: Jhonathan Aguilar Date:08/24/2023 [facility] Department of Radiation Oncology [facility] RADIATION ONCOLOGY POST SEED IMPLANT SIMULATION [...] Electronically Signed KANU RUIZ M.D. :12 AM [facility] 08-09-2023 Note HNO ID: [id number] Author: Jennifer Ruiz MD Service: ? Author Type: Physician Type: Progress Notes Filed: 08/09/2023 10:13 AM Note Text: Radiation Oncology - Follow Up Note PATIENT NAME: Jhonathan Aguilar PATIENT DIAGNOSIS: Prostate adenocarcinoma, initial PSA 26.2, biopsy Flowery Branch score 4 + 4 = 8 (grade [...] ASSESSMENT/PLAN: Prostate adenocarcinoma, initial PSA 26.2, biopsy Flowery Branch score 4 + 4 = 8 (grade [...] by: Jennifer Ruiz MD cc: Dr. Westfall [facility] 08-09-2023 History of Present illness Narrative Radiation Oncology - Follow Up Note PATIENT NAME: Jhonathan Aguilar PATIENT DIAGNOSIS: Prostate adenocarcinoma, initial PSA 26.2, biopsy Flowery Branch score 4 + 4 = 8 (grade [...] cc: Dr. Westfall documented in this encounter [facility] 08-09-2023 Nurse Note AUA= 21 documented in this encounter [facility] 07-27-2023 Note HNO ID: [id number] Author: Jennifer Ruiz MD Service: ? Author Type: Physician Type: Progress Notes Filed: 07/27/2023 12:43 PM Note Text: Date: 07/27/23 Facility: [facility] Procedure: prostate transperineal brachytherapy implant Sources: [...] activity seen, results documented. La Ruiz MD [facility] 07-27-2023 History of Present illness Narrative Date: 07/27/23 Facility: [facility] Procedure: prostate transperineal brachytherapy implant Sources: [...] activity seen, results documented. La Ruiz MD [facility] documented in this encounter [facility] 07-20-2023 Note [id number] [facility] 07-17-2023 History of Present illness Narrative JHONATHAN AGUILAR [id number] 07/17/2023 [facility] Department of Radiation Oncology [facility] RADIATION ONCOLOGY BRACHYTHERAPY TREATMENT PLANNING NOTE [...] LALIT 34:12 PM documented in this encounter [facility] 07-17-2023 Note HNO ID: [id number] Author: Jennifer Ruiz MD Service: ? Author Type: Physician Type: Progress Notes Filed: 07/19/2023 12:34 AM Note Text: JHONATHAN AGUILAR [id number] 07/17/2023 [facility] Department of Radiation Oncology [facility] RADIATION ONCOLOGY BRACHYTHERAPY TREATMENT PLANNING NOTE [...] Kanu Ruiz M.D. / LALIT 34:12 PM [facility] 07-06-2023 Note HNO ID: [id number] Author: Jenniefr Ruiz MD Service: ? Author [...] Visit completed when applicable. Jennifer Ruiz MD [facility] 07-05-2023 History of Present illness Narrative JHONATHAN AGUILAR [id number] 07/05/2023 [facility] Department of Radiation Oncology [facility] RADIATION ONCOLOGY SIMULATION NOTE DATE OF SIMULATION: 07/05/2023 MACHINE: Artillery Flex Focus 500 Diagnosis: 185 (Prostate Gland) AREA:Prostate PATIENT POSITION: Supine CONTRAST: None PROTOCOL: None CONCURRENT THERAPY: None FIXATION DEVICE: UTS Stabilization device by [employer]. PROCEDURE: Patient was simulated in exaggerated dorsal lithotomy position. Serial images of the prostate were acquired using TRUS and reconstructed in 3D space. These images were imported into [employer] Prostate planning system where a plan was generated. ASSESSMENT/PLAN: Patient tolerated simulation procedure well. Electronically Signed Kanu Ruiz M.D. / LALIT 35:18 PM documented in this encounter [facility] 07-05-2023 Note HNO ID: [id number] Author: Jennifer Ruiz MD Service: ? Author Type: Physician Type: Progress Notes Filed: 07/06/2023 12:33 AM Note Text: JHONATHAN AGUILAR [id number] 07/05/2023 [facility] Department of Radiation Oncology [facility] RADIATION ONCOLOGY SIMULATION NOTE DATE OF SIMULATION: 07/05/2023 MACHINE: Favbuy Focus 500 Diagnosis: 185 (Prostate Gland) AREA:Prostate PATIENT POSITION: Supine CONTRAST: None PROTOCOL: None CONCURRENT THERAPY: None FIXATION DEVICE: UTS Stabilization device by [employer]. PROCEDURE: Patient was simulated in exaggerated dorsal lithotomy position. Serial images of the prostate were acquired using TRUS and reconstructed in 3D space. These images were imported into [employer] Prostate planning system where a plan was generated. ASSESSMENT/PLAN: Patient tolerated simulation procedure well. Electronically Signed Kanu Ruiz M.D. / LALIT 35:18 PM [facility] 06-02-2023 History of Present illness Narrative [facility] Radiation Oncology Department RADIATION ONCOLOGY - COMPLETION NOTE PATIENT: JF AGUILAR: 1945 DATES OF TREATMENT: 04/26/23 - 06/02/23 DIAGNOSIS: Prostate adenocarcinoma, initial PSA 26.2, biopsy Flowery Branch score 4 + 4 = 8 (grade [...] Kanu Ruiz M.D. / NRS 34:31 PM documented in this encounter [facility] 06-02-2023 Note HNO ID: [id number] Author: Jennifer Ruiz MD Service: ? Author Type: Physician Type: Progress Notes Filed: 06/08/2023 12:34 AM Note Text: [facility] Radiation Oncology Department RADIATION ONCOLOGY - COMPLETION [...] Kanu Ruiz M.D. / RACHID 34:31 PM Electronically Signed cc: Dr. Westfall [facility] 05-29-2023 Note HNO ID: [id number] Author: Jennifer Ruiz MD Service: ? Author Type: Physician Type: Progress Notes Filed: 05/29/2023 9:10 AM Note Text: Radiation Oncology - On Treatment Review (OTR) Note PATIENT NAME: Jhonathan Aguilar PATIENT DIAGNOSIS: Prostate adenocarcinoma, initial PSA 26.2, biopsy Flowery Branch score 4 + 4 = 8 (grade [...] Discussed upcoming brachytherapy boost. Jennifer Ruiz MD [facility] 05-29-2023 History of Present illness Narrative Radiation Oncology - On Treatment Review (OTR) Note PATIENT NAME: Jhonathan Aguilar PATIENT DIAGNOSIS: Prostate adenocarcinoma, initial PSA 26.2, biopsy Flowery Branch score 4 + 4 = 8 (grade [...] Jennifer Ruiz MD documented in this encounter [facility] 05-23-2023 Note HNO ID: [id number] Author: Jennifer Ruiz MD Service: ? Author Type: Physician Type: Progress Notes Filed: 05/23/2023 8:56 AM Note Text: Radiation Oncology - On Treatment Review (OTR) Note PATIENT NAME: Jhonathan Aguilar PATIENT DIAGNOSIS: Prostate adenocarcinoma, initial PSA 26.2, biopsy Flowery Branch score 4 + 4 = 8 (grade [...] radiation treatment as planned. Jennifer Ruiz MD [facility] 05-23-2023 History of Present illness Narrative Radiation Oncology - On Treatment Review (OTR) Note PATIENT NAME: Jhonathan Aguilar PATIENT DIAGNOSIS: Prostate adenocarcinoma, initial PSA 26.2, biopsy Flowery Branch score 4 + 4 = 8 (grade [...] Jennifer Ruiz MD documented in this encounter [facility] 05-16-2023 Note HNO ID: [id number] Author: Jennifer Ruiz MD Service: ? Author Type: Physician Type: Progress Notes Filed: 05/16/2023 8:52 AM Note Text: Radiation Oncology - On Treatment Review (OTR) Note PATIENT NAME: Jhonathan Aguilar PATIENT DIAGNOSIS: Prostate adenocarcinoma, initial PSA 26.2, biopsy Flowery Branch score 4 + 4 = 8 (grade [...] radiation treatment as planned. Jennifer Ruiz MD [facility] 05-16-2023 History of Present illness Narrative [...] Jennifer Ruiz MD documented in this encounter [facility] 05-08-2023 Note HNO ID: [id number] Author: Jennifer Ruiz MD Service: ? Author Type: Physician Type: Progress Notes Filed: 05/08/2023 8:53 AM Note Text: Radiation Oncology - On Treatment Review (OTR) Note PATIENT NAME: Jhonathan Aguilar PATIENT DIAGNOSIS: Prostate adenocarcinoma, initial PSA 26.2, biopsy Flowery Branch score 4 + 4 = 8 (grade [...] radiation treatment as planned. Jennifer Ruiz MD [facility] 05-08-2023 History of Present illness Narrative [...] Jennifer Ruiz MD documented in this encounter [facility] 05-04-2023 Nurse Note Jhonathan Aguilar presents in office today for: Lab Draw only . Ordering Provider: Kanu Ruiz M.D. Test (s) ordered: CBC Method for obtaining blood: Phlebotomy was performed, accessing right antecubital vein. Needle removed intact. Dressing secured. Patient denies discomfort, dizziness, light-headedness or weakness and left the department without assist. Rosa Lau, RN documented in this encounter [facility] 05-01-2023 Note HNO ID: [id number] Author: Jennifer Ruiz MD Service: ? Author Type: Physician Type: Progress Notes Filed: 05/01/2023 9:26 AM Note Text: Radiation Oncology - On Treatment Review (OTR) Note PATIENT NAME: Jhonathan Aguilar PATIENT DIAGNOSIS: Prostate adenocarcinoma, initial PSA 26.2, biopsy Flowery Branch score 4 + 4 = 8 (grade [...] radiation treatment as planned. Jennifer Ruiz MD [facility] 05-01-2023 History of Present illness Narrative [...] Jennifer Ruiz MD documented in this encounter [facility] 04-26-2023 History of Present illness Narrative Radiation [...] Jennifer Ruiz MD documented in this encounter [facility] 04-26-2023 Note HNO ID: [id number] Author: Jennifer Ruiz MD Service: ? Author Type: Physician Type: Progress Notes Filed: 05/01/2023 9:27 AM Note Text: Radiation Oncology - On Treatment Review (OTR) Note PATIENT NAME: Jhonathan Aguilar PATIENT DIAGNOSIS: Prostate adenocarcinoma, initial PSA 26.2, biopsy Flowery Branch score 4 + 4 = 8 (grade [...] Continue radiation as prescribed. Jennifer Ruiz MD [facility] 04-25-2023 Miscellaneous Notes CBC order, during second week of radiation therapy, is pending your approval. Dara Russell LPN documented in this encounter [facility] 04-18-2023 History of Present illness Narrative JHONATHAN AGUILAR [id number] 04/18/2023 [facility] Radiation Oncology Department SIMULATION NOTE DATE OF SIMULATION: 04/18/2023 THERAPIST: Charisse Celaya MACHINE: Medrio DIAGNOSIS: Malignant neoplasm of [id number] AREA: PELVIS CONTRAST: None Consent in Epic: [...] RACHID 37:23 AM documented in this encounter [facility] 04-18-2023 Note HNO ID: [id number] Author: Jennifer Ruiz MD Service: ? Author Type: Physician Type: Progress Notes Filed: 04/28/2023 12:15 PM Note Text: JHONATHAN AGUILAR [id number] 04/18/2023 [facility] Department of Radiation Oncology Treatment Planning Note [...] Electronically Signed Kanu Ruiz M.D. 2:11 PM [facility] 04-18-2023 Note HNO ID: [id number] Author: Jennifer Ruiz MD Service: ? Author Type: Physician Type: Progress Notes Filed: 04/20/2023 12:33 AM Note Text: JHONATHAN AGUILAR [id number] 04/18/2023 [facility] Radiation Oncology Department SIMULATION NOTE DATE OF SIMULATION: 04/18/2023 THERAPIST: Charisse Celaya MACHINE: Medrio DIAGNOSIS: Malignant neoplasm of [id number] AREA: PELVIS CONTRAST: None Consent in Epic: [...] Kanu Ruiz M.D. 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 Every effort was made to ensure accuracy; however, inadvertent computerized referral manager errors may be present. Thank you for allowing us to participate in the care of this patient. Thank you for allowing me to see the patient Please call for any questions or concerns, eMlly Mata MD [place] Infectious diseases P:[phone] [facility] 04-05-2023 Nurse Note AUA 13 Rosa Lau RN documented in this encounter [facility] 04-05-2023 Note HNO ID: [id number] Author: Jennifer Ruiz MD Service: ? Author Type: Physician Type: Progress Notes Filed: 04/05/2023 3:51 PM Note Text: Radiation Oncology - Prostate Cancer New Patient/Consult Note PATIENT NAME: Jhonathan Aguilar PATIENT REQUESTING PROVIDER: Dr. Westfall DIAGNOSIS: 77 year old male with prostate adenocarcinoma, initial PSA 26.2, biopsy Flowery Branch score 4 + 4 = 8 (grade [...] 07, 2023 revealed: 42 cm? gland. Adenocarcinoma Flowery Branch 8 (4+4) from the left base left [...] ASSESSMENT/PLAN: Prostate adenocarcinoma, initial PSA 26.2, biopsy Flowery Branch score 4 + 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 Prostate cancer (C61), 2019 NCCN Risk Group: High Risk Group Clinical State: Localized Cancer - New Diagnosis Patient presents with a localized but high risk adenocarcinoma prostate. Otherwise exce (more content not included)... [facility] 04-05-2023 History of Present illness Narrative Radiation Oncology - Prostate Cancer New Patient/Consult Note PATIENT NAME: Jhonathan Aguilar PATIENT REQUESTING PROVIDER: Dr. Westfall DIAGNOSIS: 77 year old male with prostate adenocarcinoma, initial PSA 26.2, biopsy Flowery Branch score 4 + 4 = 8 (grade [...] 07, 2023 revealed: 42 cm gland. Adenocarcinoma Flowery Branch 8 (4+4) from the left base left lateral mid left lateral apical and right lateral base cores, in addition Flowery Branch 74+3 from right base right mid right [...] ASSESSMENT/PLAN: Prostate adenocarcinoma, initial PSA 26.2, biopsy Flowery Branch score 4 + 4 = 8 (grade [...] 1 is the provider ID). German Westfall [id number] [facility] [id number] documented in this encounter [facility] 04-05-2023 Note Education (ALETHA) JHONATHAN AGUILAR ([id number]) 1945 M Date Time Provider Department 04/05/23 ROSA LAU Reason for Visit: Patient Education [91] Visit Notes: >> Rosa Lau RN MonApr 05, 2023 2:48 PM Status: Signed Radiation Therapy - Patient Education Note PATIENT NAME: Jhonathan Aguilar PATIENT April 05, 2023 [facility] FACILITY/LOCATION: [facility] READINESS TO LEARN Cognitive Ability: Alert and [...] need for social work, van service, and psychiatric assistant. BINDER GIVEN Signed by: Rosa Lau RN [...] Encounter Status:Closed by ROSA LAU on 04/10/23 [facility] 03-27-2023 Hospital Discharge instructions Patient Education 03/27/2023 [...] advanced cancer. Where to find more information [place] [employer]: www.cancer.org National Cancer [place]: www.cancer.gov Contact a health care provider if: [...] provider. Document Revised: 12/16/2021 Document Reviewed: 12/16/2021 Care IT Patient Education 2022 World BX. 03/27/2023 10:32:10 Brachytherapy for Prostate Cancer Brachytherapy [...] including vitamins, herbs, eye drops, creams, and rxbi-sxi-coaxwyg medicines. Any problems you or family members [...] provider tells you to take them. ?Taking bqis-mfc-riddaoy medicines, vitamins, herbs, and supplements. Follow your [...] provider. Document Revised: 12/01/2021 Document Reviewed: 12/01/2021 Care IT Patient Education 2022 World BX. Follow Up Care 03/15/2023 11:47:48 With:MALOU MCGREGOR, German Colmenares, URL Address: [facility] [address] [place] [address] [phone] When: Unknown Comments:referral to rad onc [facility] 03-07-2023 Hospital Discharge instructions Patient [...] for your post-operative appointment in 1-2 weeks [phone] or [phone] Follow Up Care 03/01/2023 11:26:32 With:German WESTFALL Address: [facility] [address], [place] [address]- [facility] (1) When: Unknown Comments:Keep scheduled appointment [facility] 03-07-2023 Note [phone] [id number] [facility] 03-01-2023 Hospital Discharge instructions Patient Education 03/01/2023 [...] if anything looks unusual. Men with a ykbnhl-adck-jksbpv risk for skin cancer may want to see a skin drier (injection molding machine setter) for an annual body check. What are the benefits of screening? Cancer screening is done to look for cancer in the very early stages, before it spreads and becomes harder to treat and before you would start to notice symptoms. Finding cancer early improves the chances of successful treatment. It may save your life. Where to find more information [place] [employer]: www.cancer.org Centers for Disease Control and Prevention: www.cdc.gov National Cancer [place]: www.cancer.gov Contact a health care provider if: [...] provider. Document Revised: 01/31/2022 Document Reviewed: 07/31/2020 Care IT Patient Education 2022 World BX. 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 Pt understands the increased risk for cancer associated with the bladder. Follow-up With When Contact Information MALOU MCGREGOR, German Colmenares, URL [facility] [address], [place] [address] [phone] Additional Instructions: TRUS/bx Patient Education Cancer Screening for Men I, Denisha Diana, personally scribed for Dr. Westfall on 03/01/2023 10:59:41. . Documentation recorded by the geneibeDenisha, accurately reflects the services(s) I performed and [...] Tab, 20 mg= 1 tab(s), Oral, QID, TN (more content not included)... [facility] Comment on above: Result Comment: Elec tronically Signed By: German WESTFALL MD\.br\Date and Time Signed: 03/01/23 11:03 EDT\.br\Electronically Co-Signed By: Denisha Diana\.br\Date and Time Co-Signed: 03/01/23 11:00 EDT 08-24-2021 Evaluation note Encounter Date Diagnosis Assessment [...] osteoarthritis involving multiple joints (ICD-10 - M15.9) [facility] Other 11-14-2016 History general Narrative - Reported* Type Description Date Medical History osteoarthritis Medical History back trouble Medical History left hip pain Surgical History left hip 08/01/2016 Surgical History PLIF- Dr. Villalobos 2013 Surgical History Back surgery 2014 Surgical History Right Thumb Repair 2015 Surgical History Bilat Carpal tunnel 2010 Surgical History Left Hip replacement - Dr. Andersen 2015 Surgical History Right thumb Surgical History XLIF-Doctor Villalobos 08/2020 Hospitalization History see above [facility] Other evaluation + Plan note Future Appointments Appointment Date:02/14/2023 09:30:00 AM Scheduled Provider: [facility]ness [facility] Future Appointments Appointment Date:03/01/2023 09:00:00 AM Scheduled Provider:German WESTFALL MD Location:[facility] [place] Appointment Type:URO New Patient Appointment Date:02/19/2024 08:00:00 AM Scheduled [facility] Wellness [facility] Future Appointments Appointment Date:03/02/2023 08:30:00 AM Scheduled Provider: Location:[facility] Appointment Type:Urology CALL PAT FT Appointment Date:03/07/2023 08:00:00 AM Scheduled Provider: Location:[facility] Appointment Type:Urology FT Appointment Date:03/27/2023 09:15:00 AM Scheduled Provider:German WESTFALL MD [facility] Type:URO Office Visit Appointment Date:02/19/2024 08:00:00 AM Scheduled Provider: Location:[facility] Appointment Type: Medicare Wellness Subsequent Future Scheduled Tests Laboratory* PSA Total 03/01/23 [facility] [place] Evaluation + Plan note Future Appointments Appointment Date:03/27/2023 09:15:00 AM Scheduled Provider:German WESTFALL MD [facility] Appointment Type:URO Office Visit Appointment Date:02/19/2024 08:00:00 AM Scheduled Provider: Location:[facility] Appointment Type:FM Medicare Wellness Subsequent Diagnostic Tests Pending * Prostate Histology ([facility]) 03/07/23 Future Scheduled Tests Laboratory* PSA Total [facility]01[facility] Future Appointments Appointment Date:09/12/2023 09:00:00 AM Scheduled Provider: Location[facility] Appointment Type:URO Nurse Visit Appointment Date:09/15/2023 08:45:00 AM Scheduled Provider:German WESTFALL MD Location[facility] Appointment Type:URO Office Visit Appointment Date:02/19/2024 08:00:00 AM Scheduled Provider: Location:[facility] Appointment Type:FM Medicare Wellness Subsequent Future Scheduled Tests Laboratory* PSA Total 03/01/23 [facility] evaluation + Plan note Future Appointments Appointment Date:08/28/2023 08:45:00 AM Scheduled Provider:German WESTFALL MD [facility] Appointment Type:URO Office Visit Appointment Date:09/15/2023 08:45:00 AM Scheduled Provider:German WESTFALL MD [facility] Appointment Type:URO Office Visit Appointment Date:02/19/2024 08:00:00 AM Scheduled Provider: Location:[facility] Appointment Type:FM Medicare Wellness Subsequent Future Scheduled Tests Laboratory* PSA Total 03/01/23 [facility] [place] Evaluation + Plan note Future Appointments Appointment Date:09/15/2023 08:45:00 AM Scheduled Provider:German WESTFALL MD Location[facility] Appointment Type:URO Office Visit Appointment Date:02/19/2024 08:00:00 AM Scheduled Provider: Location:[facility] Appointment Type:FM Medicare Wellness Subsequent Future Scheduled Tests Laboratory* PSA Total 03/01/23 [facility] evaluation + Plan note Future Appointments Appointment Date:12/11/2023 08:45:00 AM Scheduled Provider:German WESTFALL MD Location[facility] Appointment Type:URO Office Visit Appointment Date:02/19/2024 08:00:00 AM Scheduled Provider: Location:[facility] Appointment Type: Medicare Wellness Subsequent Diagnostic Tests Pending * PSA Total 11/02/23 Future Scheduled Tests Laboratory* PSA Total 03/01/23 [facility] evaluation + Plan note Future Appointments Appointment Date:02/19/2024 08:00:00 AM Scheduled Provider: Location:[facility] Appointment Type: Medicare Wellness Subsequent Appointment Date:07/01/2024 08:45:00 AM Scheduled Provider:German WESTFALL MD Location[facility] Appointment Type:URO Office Visit Diagnostic Tests Pending * PSA Total 04/18/24 Future Scheduled Tests Laboratory* PSA Total 03/01/23 [facility] evaluation + Plan note Future Appointments Appointment Date:02/19/2024 08:00:00 AM Scheduled Provider[facility] Type:FM Medicare Wellness Subsequent Appointment Date:07/01/2024 08:45:00 AM Scheduled Provider:German WESTFALL MD Location:[facility] Appointment Type:URO Office Visit Future Scheduled Tests Laboratory* PSA Total 03/01/23 [facility] information available [facility] Work Phone: Evaluation note* Diagnosis Malignant neoplasm of prostate (HCC)- Primary Malignant neoplasm of prostate documented in this encounter [facility] note* Diagnosis Malignant neoplasm of prostate (HCC)- Primary Malignant neoplasm of prostate documented in this encounter [facility] note* Diagnosis Malignant neoplasm of prostate (HCC)- Primary Malignant neoplasm of prostate documented in this encounter [facility] note* Diagnosis Malignant neoplasm of prostate (HCC)- Primary Malignant neoplasm of prostate documented in this encounter [facility] note* Diagnosis Malignant neoplasm of prostate (HCC)- Primary Malignant neoplasm of prostate Platelets decreased (HCC) Thrombocytopenia, unspecified documented in this encounter [facility] note* Diagnosis Malignant neoplasm of prostate (HCC)- Primary Malignant neoplasm of prostate documented in this encounter [facility] note* Diagnosis Malignant neoplasm of prostate (HCC)- Primary Malignant neoplasm of prostate documented in this encounter [facility] note* Diagnosis Malignant neoplasm of prostate (HCC)- Primary Malignant neoplasm of prostate documented in this encounter [facility] note* Diagnosis Malignant neoplasm of prostate (HCC)- Primary Malignant neoplasm of prostate documented in this encounter [facility] note* Diagnosis Onset Date Resolution Status History of lumbar fusion acu te Left flank pain acute [facility] Work Phone: Evaluation note* Diagnosis Onset Date Resolution Status History of lumbar fusion acu te Left flank pain acute Cervical radiculopathy nonea ctive Cervical pain (neck) acute DDD (degenerative disc disease), lumbosacral acute Lumbar muscle pain acute [facility] Work Phone: Evaluation note* Diagnosis Malignant neoplasm of prostate (HCC)- Primary Malignant neoplasm of prostate documented in this encounter [facility] note* Diagnosis Onset Date Resolution Status History of lumbar fusion acu te Left flank pain acute Cervical radiculopathy nonea ctive Cervical pain (neck) acute DDD (degenerative disc disease), lumbosacral acute Lumbar muscle pain acute History of lumbar fusion acu te Left flank pain acute Carpal tunnel syndrome, left upper limb noneactive Cervical radiculopathy nonea [facility] Work Phone: Evaluation note* Diagnosis Onset Date Resolution Status Cervical pain (neck) acute DDD (degenerative disc disease), lumbosacral acute Lumbar muscle pain acute History of lumbar fusion acu te Left flank pain acute Carpal tunnel syndrome, left upper limb noneactive Cervical radiculopathy nonea ctive Carpal tunnel syndrome, left upper limb noneactive Cervical radiculopathy nonea ctive [facility] Work Phone: Evaluation note* Diagnosis Onset Date Resolution Status Cervical pain (neck) acute DDD (degenerative disc disease), lumbosacral acute Lumbar muscle pain acute History of lumbar fusion acu te Left flank pain acute Carpal tunnel syndrome, left upper limb noneactive Cervical radiculopathy nonea ctive Cervical myelopathy acute Carpal tunnel syndrome, left upper limb noneactive Cervical radiculopathy nonea [facility] Work Phone: Evaluation note* Diagnosis Onset Date Resolution Status History of lumbar fusion acu te Left flank pain acute Carpal tunnel syndrome, left upper limb noneactive Cervical radiculopathy nonea ctive Cervical myelopathy acute Carpal tunnel syndrome, left upper limb noneactive Cervical radiculopathy nonea ctive Chronic pain acute DDD (degenerative disc disease), lumbosacral acute Lumbar muscle pain acute [facility] Work Phone: Evaluation note* Diagnosis Onset Date Resolution Status Cervical myelopathy acute Carpal tunnel syndrome, left upper limb noneactive Cervical radiculopathy nonea ctive Chronic pain acute DDD (degenerative disc disease), lumbosacral acute Lumbar muscle pain acute Carpal tunnel syndrome, left upper limb acute Cervical disc disorder at C5 -C6 level with myelopathy acute Carpal tunnel syndrome, left upper limb acute Cervical disc disorder at C5 -C6 level with myelopathy acute [facility] Work Phone: Evaluation note* Diagnosis Onset Date Resolution Status Cervical myelopathy acute Carpal tunnel syndrome, left upper limb noneactive Cervical radiculopathy nonea ctive Chronic pain acute DDD (degenerative disc disease), lumbosacral acute Lumbar muscle pain acute Carpal tunnel syndrome, left upper limb acute Cervical disc disorder at C5 -C6 level with myelopathy acute Carpal tunnel syndrome, left upper limb acute Cervical disc disorder at C5 -C6 level with myelopathy acute Cervical myelopathy acute Chronic pain acute DDD (degenerative disc disease), lumbosacral acute Lumbar muscle pain acute [facility] Work Phone: Hospital course Narrative No data available for this section [facility] No data available for this section [facility] Additional Instructions DISCHARGE INSTRUCTIONS FOR CARPAL TUNNEL RELEASE DIET -No restrictions unless diabetic or cardiac patient ACTIVITY -Activity as tolerated -Use hand is much as possible. -May drive in the a.m. as tolerated; may ride in car -Remove the white dressing 48 hours after surgery -Keep incision clean and dry, when showering place a bag with a rubber band over the operative area -Apply small amount of antibiotic ointment 1 time daily to wound after dressing is off OTHER -Call your physician's office for any fever, chills, nausea, vomiting, drainage, or headache. -Please call your physician's office and make an appointment to see your physician in two weeks.[facility] Work Phone: Progress note No data available for this section [facility] N[facility]* Diagnostic Procedure Only (Routine) - Outside PCP Specialty Diagnoses / Procedures Referred By Christinaac t Referred To Contact Radiology / RADIO PET CT SAND Diagnoses Prostate cancer (HCC) CT post implant Procedures CT POST OP SEED IMPLANT Self Radio Pet Ct [place] [address] [place] [address] Referral ID Status Reason Start Date Expiration Date Visits Requested Visits Authorized [id number] Outside PCP Patient Cleared - Admin/Chair man/Directo r advise to proceed or did not respond 08/24/2023 11/22/2023 1 1 [facility] Summary Purpose Family History Relationship Condition Age at Onset Recorded Date/T [...] Unknown Not Specified Heart disease Unknown Unknown Relationship Condition Age at Onset Recorded Date/T laure mother Hypertension Unknown History of coronary artery bypass surgery Unknown father History of coronary artery bypass surgery Unknown Malignant neoplasm of colon Unknown father Unknown Heart disease Unknown Malignant neoplasm Unknown mother Heart disease Unknown Unknown Relationship Condition Age at Onset Recorded Date/T laure mother History of coronary artery bypass surgery Unknown Hypertension Unknown Unknown Heart disease Unknown Malignant neoplasm Unknown father Malignant neoplasm of colon Unknown History of coronary artery bypass surgery Unknown Advance Directives Advance Directive Response Recorded Date/ Time Advance Directives No August 18, 2017 8:38am Advance Directive Response Recorded Date/ Time Advance Directives No August 18, 2017 9:38am Advance Directive Response Recorded Date/ Time Advance Directives Yes December 11 024 10:17am Chief Complaint and Reason for Visit Chief Complaint m43.16 Chief Complaint M47.817 Chief Complaint M47.817 yearly f/u XLIF w/xray Reason for Visit History of lumbar fu alana Left flank pain Chief Complaint M47.817 yearly f/u XLIF w/xray 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 TEACHER REFF BY DR WINTER VILLALOBOS Reason for Visit History of lumbar fu alana Left flank pain Cervical radiculopathy Cervical pain (neck) DDD (degenerative disc disease), lumbosacral Lumbar muscle pain Chief Complaint M47.817 yearly f/u XLIF w/xray TMR TEACHER REFF BY DR WINTER VILLALOBOS follow up after pain management/PT M54.12 Reason for Visit History of lumbar fu alana Left flank pain Cervical radiculopathy Cervical pain (neck) DDD (degenerative disc disease), lumbosacral Lumbar muscle pain History of lumbar fusion Left flank pain Carpal tunnel syndrome, left upper limb Cervical radiculopathy Chief Complaint TMR TEACHER REFF BY DR WINTER JEFFERSON follow up after pain management/PT M54.12 mri results, emg results Reason for Visit Cervical pain (neck) DDD (degenerative disc disease), lumbosacral Lumbar muscle pain History of lumbar fusion Left flank pain Carpal tunnel syndrome, left upper limb Cervical radiculopathy Carpal tunnel syndrome, left upper limb Cervical radiculopathy Chief Complaint TMR TEACHER REFF BY DR WINTER JEFFERSON follow up after pain management/PT M54.12 mri results, emg results Carpal Tunnel Syndrome Reason for Visit Cervical pain (neck) DDD (degenerative disc disease), lumbosacral Lumbar muscle pain History of lumbar fusion Left flank pain Carpal tunnel syndrome, left upper limb Cervical radiculopathy Cervical myelopathy Carpal tunnel syndrome, left upper limb Cervical radiculopathy Chief Complaint follow up after pain management/PT M54.12 mri results, emg results Carpal Tunnel Syndrome 3 MONTH FOLLOW UP Reason for Visit History of lumbar fu alana Left flank pain Carpal tunnel syndrome, left upper limb Cervical radiculopathy Cervical myelopathy Carpal tunnel syndrome, left upper limb Cervical radiculopathy Chronic pain DDD (degenerative disc disease), lumbosacral Lumbar muscle pain Chief Complaint follow up after pain management/PT M54.12 mri results, emg results Carpal Tunnel Syndrome 3 MONTH FOLLOW UP Carpal Tunnel Syndrome Reason for Visit History of lumbar fu alana Left flank pain Carpal tunnel syndrome, left upper limb Cervical radiculopathy Cervical myelopathy Carpal tunnel syndrome, left upper limb Cervical radiculopathy Chronic pain DDD (degenerative disc disease), lumbosacral Lumbar muscle pain Chief Complaint follow up after pain management/PT M54.12 mri results, emg results Carpal Tunnel Syndrome 3 MONTH FOLLOW UP Carpal Tunnel Syndrome Carpal Tunnel Syndrome 2 WK F/U PO CARPAL TUNNEL Reason for Visit History of lumbar fu alana Left flank pain Carpal tunnel syndrome, left upper limb Cervical radiculopathy Cervical myelopathy Carpal tunnel syndrome, left upper limb Cervical radiculopathy Chronic pain DDD (degenerative disc disease), lumbosacral Lumbar muscle pain Chief Complaint M54.12 mri results, emg results Carpal Tunnel Syndrome 3 MONTH FOLLOW UP Carpal Tunnel Syndrome Carpal Tunnel Syndrome 2 WK F/U PO CARPAL TUNNEL 4 week po carpal tunnel after steroids Reason for Visit Cervical myelopathy Carpal tunnel syndrome, left upper limb Cervical radiculopathy Chronic pain DDD (degenerative disc disease), lumbosacral Lumbar muscle pain Carpal tunnel syndrome, left upper limb Cervical disc disorder at C5-C6 level with myelopathy Carpal tunnel syndrome, left upper limb Cervical disc disorder at C5-C6 level with myelopathy Chief Complaint M54.12 mri results, emg results Carpal Tunnel Syndrome 3 MONTH FOLLOW UP Carpal Tunnel Syndrome Carpal Tunnel Syndrome 2 WK F/U PO CARPAL TUNNEL 4 week po carpal tunnel after steroids 6 WEEKS Reason for Visit Cervical myelopathy Carpal tunnel syndrome, left upper limb Cervical radiculopathy Chronic pain DDD (degenerative disc disease), lumbosacral Lumbar muscle pain Carpal tunnel syndrome, left upper limb Cervical disc disorder at C5-C6 level with myelopathy Carpal tunnel syndrome, left upper limb Cervical disc disorder at C5-C6 level with myelopathy Cervical myelopathy Chronic pain DDD (degenerative disc disease), lumbosacral Lumbar muscle pain Additional Source Comments REASON FOR VISIT (unrecogniz ed section and content) Reason Comments Prostate Cancer Reason Comments Orders Reason Comments Radiotherapy On-treatment Visit Reason Comments Phlebotomy Specialty Diagnoses / Procedures Referred By Contac t Referred To Contact Radiation Oncology / RADIATION ONCOLOGY Diagnoses Malignant neoplasm of prostate Volume study Procedures VOLUME STUDY brachy therapy Jennifer Ruiz MD [address] [place] [address] [place] [address] Jennifer Ruiz MD [address] [place] [address] [place] [address] Referral ID Status Reason Start Date Expiration Date V isits Requested Visits Authorized [id number] Authorized 07/27/2023 10/25/2023 4 4 Specialty Diagnoses / Procedures Referred By Contac t Referred To Contact Radiation Oncology / RADIATION ONCOLOGY Diagnoses Malignant neoplasm of prostate 32 FX plus sim Procedures INTENSITY MODULATED RADIATION TX DLVR SIMPLE SIMULATION CHELSIE 32 FX plus sim Jennifer Ruiz MD [address] [place] [address] [place] [address] Jennifer Ruiz MD [address] [place] [address] [place] [address] Referral ID Status Reason Start Date Expiration Date Visits Re quested Visits Authorized [id number] Closed 04/18/2023 07/17/2023 33 33 (unrecognized sect ion and content) No Status Records FoundNo Status Records FoundNo Status Records FoundNo Status Records FoundNo Status Records FoundNo Status Records FoundNo Status Records Found INFORMATION SOURCE (unrecogn ized section and content) DATE CREATED AUTHOR 04/11/2022 [facility] DATE CREATED AUTHOR AUTHOR'S ORGANIZ ATION 12/24/2022 [facility] DATE CREATED AUTHOR AUTHOR'S ORGANIZ ATION 02/24/2024 [facility] DATE CREATED AUTHOR AUTHOR'S ORGANIZ ATION 02/29/2024 [facility] DATE CREATED AUTHOR AUTHOR'S ORGANIZ ATION 03/21/2024 [facility] DATE CREATED AUTHOR AUTHOR'S ORGANIZ ATION 04/04/2024 [facility] DATE CREATED AUTHOR AUTHOR'S ORGANIZ ATION 05/11/2024 [facility] EPIC Care Teams (unrecognized sec tion and content) [...] January 30, 2024 End: January 30, 2024 Winetr Villalobos MD Attending Provider Active Star t: January 30, 2024 End: January 30, 2024 Team Status: Inactive Member Role Status Dates Winter Villalobos MD Attending Provider Active Star t: February 20, 2024 End: February 20, 2024 Marla Whitfield TMR TEACHER-C Primary Care Provider Active Start: February 20, 2024 End: February 20, 2024 Team Status: Inactive Member Role Status Dates Marla Whitfield , TMR TEACHER-C Primary Care Provider Active Start: March 19, 2024 End: March 19, 2024 Winter Villalobos MD Attending Provider Active Star t: March 19, 2024 End: March 19, 2024 Team Status: Inactive Member Role Status Dates Marla Whitfield TMR TEACHER-C Primary Care Provider Active Start: March 29, 2024 End: March 29, 2024 Winter Villalobos MD Attending Provider Active Star t: March 29, 2024 End: March 29, 2024 Team Status: Inactive Member Role Status Dates Andre Carbajal MD Attending Provider Active Sta rt: April 03, 2024 End: April 03, 2024 Marla Whitfield TMR TEACHER-C Primary Care Provider Active Start: April 03, 2024 End: April 03, 2024 Team Status: Inactive Member Role Status Dates Marla Whitfield TMR TEACHER-C Primary Care Provider Active Start: April 12, 2024 End: April 12, 2024 Winter Villalobos MD Attending Provider Active Star t: April 12, 2024 End: April 12, 2024 Team Status: Active Member Role Status Dates Marla Whitfield TMR TEACHER-C Primary Care Provider Active Start: April 20, 2024 Winter Villalobos MD Attending Provider, Other Provider Active Start: April 20, 2024 Team Status: Inactive Member Role Status Dates Marla Whitfield TMR TEACHER-C Primary Care Provider Active Start: April 25, 2024 End: April 25, 2024 Winter Villalobos MD Attending Provider Active Star t: April 25, 2024 End: April 25, 2024 Team Status: Inactive Member Role Status Dates Marla Whitfield TMR TEACHER-C Primary Care Provider Active Start: May 09, 2024 End: May 09, 2024 Winter Villalobos MD Attending Provider Active Star t: May 09, 2024 End: May 09, 2024 Team Status: Inactive Member Role Status Dates Marla Whitfield , TMR TEACHER-C Primary Care Provider Active Start: May 13, 2024 End: May 13, 2024 Andre Carbajal MD Attending Provider Active Sta rt: May 13, 2024 End: May 13, 2024 Goals (unrecognized section and content) Goals may be documented in a n alternate section Source Comments (unrecognize d section and content) In the event this informatio n is protected by the Federal Confidentiality of Alcohol and Drug Abuse Patient Records regulations: The Federal rules restrict any use of the information to criminally investigate or prosecute any alcohol or drug abuse patient.[facility] the event this information is protected by the Federal Confidentiality of Alcohol and Drug Abuse Patient Records regulations: The Federal rules restrict any use of the information to criminally investigate or prosecute any alcohol or drug abuse patient.[facility] the event this information is protected by the Federal Confidentiality of Alcohol and Drug Abuse Patient Records regulations: The Federal rules restrict any use of the information to criminally investigate or prosecute any alcohol or drug abuse patient.[facility], [place]woodIn the event this information is protected by the Federal Confidentiality of Alcohol and Drug Abuse Patient Records regulations: The Federal rules restrict any use of the information to criminally investigate or prosecute any alcohol or drug abuse patient.[facility], [place]woodIn the event this information is protected by the Federal Confidentiality of Alcohol and Drug Abuse Patient Records regulations: The Federal rules restrict any use of the information to criminally investigate or prosecute any alcohol or drug abuse patient.[facility], [place]In the event this information is protected by the Federal Confidentiality of Alcohol and Drug Abuse Patient Records regulations: The Federal rules restrict any use of the information to criminally investigate or prosecute any alcohol or drug abuse patient.[facility], [place]In the event this information is protected by the Federal Confidentiality of Alcohol and Drug Abuse Patient Records regulations: The Federal rules restrict any use of the information to criminally investigate or prosecute any alcohol or drug abuse patient.[facility], [place]In the event this information is protected by the Federal Confidentiality of Alcohol and Drug Abuse Patient Records regulations: The Federal rules restrict any use of the information to criminally investigate or prosecute any alcohol or drug abuse patient.[facility], [place]In the event this information is protected by the Federal Confidentiality of Alcohol and Drug Abuse Patient Records regulations: The Federal rules restrict any use of the information to criminally investigate or prosecute any alcohol or drug abuse patient.[facility], [place]In the event this information is protected by the Federal Confidentiality of Alcohol and Drug Abuse Patient Records regulations: The Federal rules restrict any use of the information to criminally investigate or prosecute any alcohol or drug abuse patient.[facility], [place]woodIn the event this information is protected by the Federal Confidentiality of Alcohol and Drug Abuse Patient Records regulations: The Federal rules restrict any use of the information to criminally investigate or prosecute any alcohol or drug abuse patient.[facility], [place]woodIn the event this information is protected by the Federal Confidentiality of Alcohol and Drug Abuse Patient Records regulations: The Federal rules restrict any use of the information to criminally investigate or prosecute any alcohol or drug abuse patient.[facility], [place]woodIn the event this information is protected by the Federal Confidentiality of Alcohol and Drug Abuse Patient Records regulations: The Federal rules restrict any use of the information to criminally investigate or prosecute any alcohol or drug abuse patient.[facility], [place]woodIn the event this information is protected by the Federal Confidentiality of Alcohol and Drug Abuse Patient Records regulations: The Federal rules restrict any use of the information to criminally investigate or prosecute any alcohol or drug abuse patient.[facility], [place]woodIn the event this information is protected by the Federal Confidentiality of Alcohol and Drug Abuse Patient Records regulations: The Federal rules restrict any use of the information to criminally investigate or prosecute any alcohol or drug abuse patient.[facility], [place]In the event this information is protected by the Federal Confidentiality of Alcohol and Drug Abuse Patient Records regulations: The Federal rules restrict any use of the information to criminally investigate or prosecute any alcohol or drug abuse patient.[facility], [place]woodIn the event this information is protected by the Federal Confidentiality of Alcohol and Drug Abuse Patient Records regulations: The Federal rules restrict any use of the information to criminally investigate or prosecute any alcohol or drug abuse patient.[facility] [place] FOR RECORDS PERTAINING TO PATIENTS WHO ARE [...] BE BASED ON THE PRIMARY CLINICAL RECORDS. [facility]. provides no warranty or guarantee of the accuracy or completeness of information in this document.
[2024-06-27 10:30] LABS: Prostate Specific Antigen Dx <0.13 ng/mL (<=4.00)
== END 2024-06-27 09:17 | disposition home or self-care (01) ==
LOC: LAB 09:18
PROVIDERS: PCP Family Medicine; Visit Provider Nurse Practitioner Family
DX: C61 Malignant neoplasm of prostate (principal)
CPT/HCPCS: 36415; 84153

== ENCOUNTER 2025-02-11 08:43 | Outpatient (OUT) | payer MEDICARE, SELFPAY ==
[2025-02-11 09:23] LABS: Erythrocyte Sedimentation Rate 23 mm/hr (<=20)
[2025-02-11 09:24] LABS: Basophils Percent Auto 0.5 % (0.2-2.0); Eosinophils Absolute Auto 0.1 10^3/uL (0.0-0.7); Eosinophils Percent Auto 2.6 % (0.9-7.0); Hematocrit 38.2 % (42.0-54.0); Hemoglobin 13.3 g/dL (14.0-18.0); Mean Corpuscular HGB Conc 34.8 g/dL (29.9-35.2); Mean Platelet Volume 9.5 fL (9.5-13.5); Monocytes Absolute Auto 0.4 10^3/uL (0.3-0.8); Neutrophils Absolute Auto 2.7 10^3/uL (1.4-6.5); Neutrophils Percent Auto 63.9 % (43.0-75.0); Platelet Count 169 10^3/uL (150-450); Red Blood Count 4.15 10^6/uL (4.70-6.10); White Blood Count 4.2 10^3/uL (4.0-11.0)
[2025-02-11 10:02] LABS: C Reactive Protein <0.50 mg/dL (<=0.50); Estimated GFR (African America >60 (>=60 mL/min/1.73m^2); Estimated GFR (Non-African Ame >60 (>=60 mL/min/1.73m^2)
== END 2025-02-11 08:44 | disposition home or self-care (01) ==
PROVIDERS: PCP Family Medicine
DX: T84.52XD Infection and inflammatory reaction due to internal left hip prosthesis, subsequent encounter (principal)
CPT/HCPCS: 36415; 82565; 84520; 85025; 85652; 86140

== ENCOUNTER 2025-06-26 14:58 | Outpatient (RCR) | payer MEDICARE, SELFPAY | END 2025-08-23 09:45 | disposition home or self-care (01) | LOC: PT 14:58 | PROVIDERS: PCP Family Medicine; Visit Provider Orthopaedic Surgery Adult Reconstructive Orthopaedic Surgery | DX: Z96.641 Presence of right artificial hip joint (principal) | CPT/HCPCS: 97110; 97162 ==